=== PATIENT | male | born 1950 | race Caucasian/White ===

== ENCOUNTER → 2017-12-20 07:56 | Outpatient (CLI) | payer MEDICARE, OTHER, SELFPAY ==
[2017-12-20 09:32] LABS: Hemoglobin A1C% w Est Avg Glu 7.3 % (4.0-6.0)
== END ==
PROVIDERS: PCP Family Medicine; Visit Provider Family Medicine
DX: E11.9 Type 2 diabetes mellitus without complications (principal)
CPT/HCPCS: 36415; 83036

== ENCOUNTER 2018-01-26 11:35 | Emergency (ER) | payer MEDICARE, OTHER, SELFPAY ==
[2018-01-26] VITALS (7 sets, daily range): BP systolic 127–162; BP diastolic 55–82; PULSE 78–96; RESP 16–26; TEMP 36.4; O2SAT 92–100
--- NOTE | 2018-01-26 11:48 | ED_ITS ---
HPI - SOB/Dyspnea General Chief Complaint: Shortness of Breath/Dyspnea Stated Complaint: COPD,LEG SWELLING,SOB Time Seen by Provider: 01/26/18 11:43 Source: patient and family Mode of arrival: ambulatory Limitations: no limitations History of Present Illness Patient is a 67-year-old male with history of COPD on 3 L of home oxygen here for evaluation of both worsening of breathing and also bilateral lower extremity swelling. Patient states that within the past week he stopped a course of antibiotics that was prescribed by Infectious Disease. He does not know the name of this medication. He also states that approximately 3 days ago he stopped course of steroids that was prescribed to him by his primary care doctor for concerns of a ?allergic reaction ?those antibiotics. Patient states that this allergic reaction was the swelling in his lower extremities. Denies chest pain. Does state that his breathing has been worsening over the past several weeks. States that the swelling in his legs has been there for the past several days/week. Related Data Home Medications Medication Instructions Recorded Confirmed cholecalciferol (vitamin D3) 1,000 unit PO QDAY #0 02/07/17 01/26/18 [Vitamin D3] guaifenesin [Mucinex] 600 mg PO Q12H #0 02/07/17 01/26/18 multivitamin [Multiple Vitamins] 1 tab PO QDAY #0 02/07/17 01/26/18 albuterol sulfate [Proventil HFA] 2 puff INH Q4H #0 02/08/17 01/26/18 tiotropium bromide [Spiriva with 1 puff INH QDAY #0 08/03/17 01/26/18 HandiHaler] Spacer: Inhaler Spacer Device 1 ea INHALATION DIRECTED 01/26/18 01/26/18 albuterol sulfate 3 ml INHALATION TID 01/26/18 01/26/18 aspirin 81 mg PO DAILY 01/26/18 01/26/18 fluticasone-salmeterol [Advair 1 inh INHALATION Q12H 01/26/18 01/26/18 Diskus] furosemide 20 mg PO PRN PRN 01/26/18 01/26/18 ipratropium-albuterol 1 dose INHALATION PRN PRN 01/26/18 01/26/18 loratadine 10 mg PO DAILY 01/26/18 01/26/18 lorazepam 0 mg PO PRN PRN 01/26/18 01/26/18 prednisone 10 mg PO DAILY 01/26/18 01/26/18 Previous Rx's Medication Instructions Recorded atorvastatin [Lipitor] 20 mg PO HS #90 tab 09/15/17 tamsulosin 0.4 mg capsule 0.4 mg PO QDAY #90 cap 12/20/17 metformin ER 500 mg 1,000 mg PO BID #180 tab 12/22/17 tablet,extended release 24 hr furosemide [Lasix] 20 mg PO DAILY #10 tab 01/26/18 Allergies Allergy/AdvReac Type Severity Reaction Status Date / Time felodipine [FELODIPINE] Allergy Intermediate SWELLING Verified 01/26/18 12:01 Review of Systems Constitutional Denies fatigue, Denies fever(s), Denies lethargy and Denies malaise ENT Ears, Nose, Mouth, and Throat: Denies vertigo and Denies dizziness Cardiovascular Denies chest pain, Denies syncope, Denies palpitations and Reports dyspnea Respiratory Denies change in phlegm color, Denies chest congestion, Reports cough, Denies excessive phlegm production, Reports dyspnea and Reports wheezing Gastrointestinal Gastrointestinal: Denies diarrhea, Denies nausea and Denies vomiting Genitourinary Denies dysuria Musculoskeletal Denies myalgias and Denies arthralgias Comments: Bilateral lower extremity swelling Integumentary/Breasts Denies lesions and Denies rash Neurologic Denies confusion, Denies vertigo, Denies dizziness, Denies syncope and Denies focal weakness Psychiatric Denies confusion Endocrine Denies fatigue and Denies palpitations Hematologic/Lymphatic Denies easy bruising Allergic/Immunologic Reports wheezing [facility] Social History Smoking Status: Former smoker Exam Initial Vital Signs Initial Vital Signs: Vital Signs Temperature 97.5 F L 01/26/18 11:53 Pulse Rate 96 H 01/26/18 11:53 Respiratory Rate 26 H 01/26/18 11:53 Blood Pressure 162/82 H 01/26/18 11:53 Pulse Oximetry 92 01/26/18 11:53 Const General: cooperative, No acute distress and other (Chronically ill-appearing) Orientation: alert, awake and oriented x3 HENMT Head: normal to inspection and normocephalic Resp Other: Patient on 3 L of oxygen by nasal cannula. Decreased breath sounds bilaterally minimal wheezing heard. Cardio Rate: regular rate Pulses: radial pulses present GI Inspection: non-distended Palpation: soft, No firm and No tender Skin Lesions: no lesions Rashes: no rashes Neuro General: alert, awake and oriented x3 Cognition: normal cognition Speech: speech normal Extrem Other: Patient with 2+ pitting edema bilateral lower extremities right greater than left Course Orders Ordered: ED Orders 01/26/18 11:45 B Type Natriuretic Peptide Stat Complete Blood Count AUTO DIFF Stat Comprehensive Metabolic Panel Stat Lipase Stat Partial Thromboplastin Time Stat Prothrombin Time INR Stat Troponin I Stat 01/26/18 11:49 Arterial Blood Gas Stat 01/26/18 11:50 XR chest 1V Stat 01/26/18 12:14 Lactate (Lactic Acid) Stat Discontinued Medications Albuterol/Ipratropium (Duoneb) 3 ml INH NOW ONE Stop: 01/26/18 11:50 Last Admin: 01/26/18 12:02 Dose: 3 ml Albuterol/Ipratropium (Duoneb) 3 ml INH NOW ONE Stop: 01/26/18 11:51 Last Admin: 01/26/18 12:03 Dose: 3 ml Albuterol/Ipratropium (Duoneb) 3 ml INH NOW ONE Stop: 01/26/18 11:52 Last Admin: 01/26/18 12:03 Dose: 3 ml Vital Signs - 8 hr 01/26/18 11:53 01/26/18 12:00 01/26/18 12:13 Temperature 97.5 F L Pulse Rate 96 H 84 87 Respiratory Rate 26 H 22 22 Blood Pressure 162/82 H Blood Pressure [Left Arm] Pulse Oximetry 92 100 100 01/26/18 12:30 01/26/18 12:58 01/26/18 13:02 Temperature Pulse Rate 81 80 78 Respiratory Rate 18 20 Blood Pressure Blood Pressure [Left Arm] 127/64 H 127/64 H 133/55 H Pulse Oximetry 100 97 100 01/26/18 13:18 Temperature Pulse Rate 78 Respiratory Rate 16 Blood Pressure 133/55 H Blood Pressure [Left Arm] Pulse Oximetry 100 MDM - SOB/Dyspnea Lab Data Attestation: I reviewed the patient's lab results. Result diagrams: 01/26/18 11:45 01/26/18 11:45 Lab Results 06/22/18 06/22/18 06/22/18 Range/Units 11:45 11:45 11:45 WBC 8.9 (4.5-11.0) X10^3/uL RBC 4.26 L (4.5-5.9) X10^6/uL Hgb 13.2 L (13.5-17.5) g/dL Hct 39.4 L (41-53) % MCV 92.5 (80-100) fL MCH 30.9 (26-34) PG MCHC 33.4 (30-36) % RDW 13.2 (11.6-14.8) % Plt Count 252 (150-400) X10^3/uL Neut % (Auto) 83.2 H (50-75) % Lymph % (Auto) 8.5 L (25-40) % Howell % (Auto) 6.1 (3-14) % Eos % (Auto) 1.6 L (2-4) % Baso % (Auto) 0.6 (0-2) % Neut # (Auto) 7400 H (4029-3615) /uL PT 10.7 (10.1-12.7) SECONDS INR 1.0 (0.9-1.3) APTT 36 (26.4-36.2) SECONDS Sodium 144 (137-145) mmol/L Potassium 4.1 (3.4-5.1) mmol/L Chloride 99 (98-107) mmol/L Carbon Dioxide 36 H (22-32) mmol/L BUN 14 (9-20) mg/dL Creatinine 0.50 L (0.66-1.25) mg/dL Estimated GFR > 60.0 (>60) mL/min BUN/Creatinine Ratio 28.0 H (6-22) Glucose 170 H (80-110) mg/dL Lactate (0.7-2.1) mmol/L Calcium 9.8 (8.4-10.2) mg/dL Total Bilirubin 0.3 (0.2-1.3) mg/dL AST 15 L (17-59) IU/L ALT 28 (21-72) IU/L Alkaline Phosphatase 90 (38-126) U/L Troponin I < 0.012 (0.01-0.034) ng/mL B-Natriuretic Peptide 55.6 (<100) Total Protein 7.1 (6.3-8.2) g/dL Albumin 4.0 (3.5-5.0) g/dL Globulin 3.1 (1.7-4.1) g/dL Albumin/Globulin Ratio 1.3 (1.0-2.8) Lipase 12 L (23-300) U/L 01/26/ Range/Units 12:14 WBC (4.5-11.0) X10^3/uL RBC (4.5-5.9) X10^6/uL Hgb (13.5-17.5) g/dL Hct (41-53) % MCV (80-100) fL MCH (26-34) PG MCHC (30-36) % RDW (11.6-14.8) % Plt Count (150-400) X10^3/uL Neut % (Auto) (50-75) % Lymph % (Auto) (25-40) % Howell % (Auto) (3-14) % Eos % (Auto) (2-4) % Baso % (Auto) (0-2) % Neut # (Auto) (7575-1557) /uL PT (10.1-12.7) SECONDS INR (0.9-1.3) APTT (26.4-36.2) SECONDS Sodium (137-145) mmol/L Potassium (3.4-5.1) mmol/L Chloride (98-107) mmol/L Carbon Dioxide (22-32) mmol/L BUN (9-20) mg/dL Creatinine (0.66-1.25) mg/dL Estimated GFR (>60) mL/min BUN/Creatinine Ratio (6-22) Glucose (80-110) mg/dL Lactate 2.0 (0.7-2.1) mmol/L Calcium (8.4-10.2) mg/dL Total Bilirubin (0.2-1.3) mg/dL AST (17-59) IU/L ALT (21-72) IU/L Alkaline Phosphatase (38-126) U/L Troponin I (0.01-0.034) ng/mL B-Natriuretic Peptide (<100) Total Protein (6.3-8.2) g/dL Albumin (3.5-5.0) g/dL Globulin (1.7-4.1) g/dL Albumin/Globulin Ratio (1.0-2.8) Lipase (23-300) U/L Imaging Data Chest x-ray: Radiologist's impression: PROCEDURE: XR CHEST 1V INDICATIONS: COPD TECHNIQUE: One view of the chest was acquired. COMPARISON: [facility], CHEST 2 VIEW, 11/12/2017, 13:20. FINDINGS: Surgical changes and devices: None. Lungs and pleura: No pleural effusions or pneumothorax. Lung is hyperexpanded suggesting COPD. Left apical pleural thickening and upper lobe scarring with hilar retraction unchanged. Mild scarring in the right upper lobe as well. No focal infiltrates. Mediastinum: Mediastinal contours appear normal. Heart size is normal. Aortic calcifications. Bones and chest wall: No suspicious bony lesions. Overlying soft tissues appear unremarkable. IMPRESSION: 1. Chronic obstructive pulmonary disease. Bilateral upper lobe scarring left greater than right. No acute cardiopulmonary abnormality. Dictated by: Ceasar Gonzales M.D. on 01/26/2018 at 12:09 ECG Data Attestation: I personally reviewed and interpreted this ECG as follows: Prior ECG tracings: not available for review Interpretation: Sinus rhythm Ventricular rate 88 Normal axis Normal intervals Normal QTC No ST T wave changes MDM Narrative Medical decision making narrative: Patient received 3 DuoNeb here in the emergency department in afterwards stated that he was head baseline and his respiratory status. He does not have any fevers or change in sputum production. Will hold on any steroids or antibiotics. He does have bilateral lower extremity swelling with a right greater than left. No signs of cellulitis. He has been on Lasix in the past but he states this was approximately 6 years ago. No indication for antibiotics secondary to the swelling. We did discuss this with the patient and the . Patient was back to baseline respiratory rios. Will give a prescription for Lasix for the next several days. He was given return precautions. He was instructed to contact his primary doctor for a follow-up. Both he and his expressed understanding and agreement with plan Discharge Plan Departure Patient Disposition: Home, Self-Care Clinical Impression: COPD (chronic obstructive pulmonary disease), Dependent edema Discharge Date/Time: 01/26/18 13:23 Interventions: ED Discharge Assessment Last Done: 01/26/18 13:18 Instructions: Edema (Alternative Therapy), DI for Dependent Edema Activity Restrictions/Additional Instructions: Recommend that you continue all of your medications as directed. Take the Lasix like we discussed. Call your primary doctor for a follow-up. Return to the emergency department for any new or worsening symptoms Prescriptions: New furosemide [Lasix] 20 mg tablet 20 mg PO DAILY Qty: 10 RF: 0 No Action guaifenesin [Mucinex] 600 MG tablet extended release 12hr 600 mg PO Q12H Qty: 0 RF: 0 multivitamin [Multiple Vitamins] 1 EACH tablet 1 tab PO QDAY Qty: 0 RF: 0 cholecalciferol (vitamin D3) [Vitamin D3] 1,000 UNIT tablet 1,000 unit PO QDAY Qty: 0 RF: 0 albuterol sulfate [Proventil HFA] 90 MCG/PUFF HFA aerosol inhaler 2 puff INH Q4H Qty: 0 RF: 0 tiotropium bromide [Spiriva with HandiHaler] 18 MCG capsule, w/inhalation device 1 puff INH QDAY Qty: 0 RF: 0 atorvastatin [Lipitor] 20 MG tablet 20 mg PO HS Qty: 90 RF: 1 tamsulosin [Flomax] 0.4 mg capsule,extended release 24hr 0.4 mg PO QDAY Qty: 90 RF: 0 metformin [Glucophage XR] 500 mg tablet extended release 24 hr 1,000 mg PO BID Qty: 180 RF: 3 Spacer: Inhaler Spacer Device 1 ea Inhalation DIRECTED RF: 0 fluticasone-salmeterol [Advair Diskus] 250-50 mcg/dose Blister With Device 1 inh INHALATION Q12H RF: 0 prednisone 10 mg Tablet 10 mg PO DAILY RF: 0 ipratropium-albuterol 0.5 mg-3 mg(2.5 mg base)/3 mL Solution For Nebulization 1 dose Inhalation PRN PRN (Reason: Shortness Of Breath) RF: 0 albuterol sulfate 2.5 mg /3 mL (0.083 %) Solution For Nebulization 3 ml Inhalation TID RF: 0 aspirin 81 mg Tablet,Delayed Release (Dr/Ec) 81 mg PO DAILY RF: 0 furosemide 20 mg Tablet 20 mg PO PRN PRN (Reason: Edema) RF: 0 loratadine 10 mg Tablet 10 mg PO DAILY RF: 0 lorazepam 0.5 MG tablet PO PRN PRN (Reason: Anxiety) RF: 0
[2018-01-26 11:59] LABS: Add Manual Diff / Slide Review NO; Basophils Percent Auto 0.6 % (0-2); Eosinophils Percent Auto 1.6 % (2-4); Hematocrit 39.4 % (41-53); Hemoglobin 13.2 g/dL (13.5-17.5); Lymphocytes Percent Auto 8.5 % (25-40); Mean Corpuscular HGB Conc 33.4 % (30-36); Mean Corpuscular Hemoglobin 30.9 PG (26-34); Mean Corpuscular Volume 92.5 fL (80-100); Monocytes Percent Auto 6.1 % (3-14); Neutrophils Absolute Auto 7400 /uL (3000-5900); Neutrophils Percent Auto 83.2 % (50-75); Platelet Count 252 X10^3/uL (150-400); Red Blood Cell Count 4.26 X10^6/uL (4.5-5.9); Red Cell Distribution Width 13.2 % (11.6-14.8); White Blood Cell Count 8.9 X10^3/uL (4.5-11.0)
[2018-01-26] MEDS: ALBUTEROL/IPRATROPIUM 3 ML AMPUL INH ×3 (12:02→12:03)
[2018-01-26 12:10] LABS: Alanine Aminotransferase 28 IU/L (21-72); Albumin Globulin Ratio 1.3 (1.0-2.8); Alkaline Phosphatase 90 U/L (38-126); Aspartate Aminotransferase 15 IU/L (17-59); Bilirubin Total 0.3 mg/dL (0.2-1.3); Blood Urea Nitrogen 14 mg/dL (9-20); Calcium 9.8 mg/dL (8.4-10.2); Carbon Dioxide 36 mmol/L (22-32); Chloride 99 mmol/L (98-107); Estimated Glomerular Filt Rate > 60.0 mL/min (>60); Globulin 3.1 g/dL (1.7-4.1); Glucose 170 mg/dL (80-110); HEMOLYSIS < 15 (0-50); Lipase 12 U/L (23-300); Potassium 4.1 mmol/L (3.4-5.1); Sodium 144 mmol/L (137-145); Total Protein 7.1 g/dL (6.3-8.2)
--- NOTE | 2018-01-26 12:14 | PC.NURSE ---
on continuous nebulizer
[2018-01-26 12:18] LABS: PTT Partial Thromboplastin Tim 36 SECONDS (26.4-36.2); Prothrombin Time 10.7 SECONDS (10.1-12.7)
[2018-01-26 12:22] LABS: Troponin I < 0.012 ng/mL (0.01-0.034)
[2018-01-26 12:37] LABS: B Type Natriuretic Peptide 55.6 (<100)
== END 2018-01-26 13:23 | disposition home or self-care (01) ==
PROVIDERS: Emergency Provider Emergency Medicine; Family Provider Family Medicine; PCP Family Medicine
DX: J44.9 Chronic obstructive pulmonary disease, unspecified (principal); R60.9 Edema, unspecified
CPT/HCPCS: 36415; 36591; 71045; 80053; 83605; 83690; 83880; 84484; 85025; 85610; 85730; 93005; 93010; 94640; 99283; 99285

== ENCOUNTER → 2018-02-16 12:03 | Outpatient (CLI) | payer MEDICARE, OTHER, SELFPAY ==
--- NOTE | 2018-02-16 | DI.ECHO.S_ITS ---
[facility]+ [facility] +---------+ : : [address] [place] : : : : [id number] : : : : Phone: [phone] Echocardiogram Report + + :Name: AZAR ROSEN Study Date: 02/16/2018 Height: 67 in : :[facility] Weight: 160 lb : : Gender: Male BSA: 1.8 m2 : :: 1950 Age: 67 yrs BP: 138/62 mmHg: :Reason For Study: Dyspnea : :Ordering Physician: Beryl : :Parimi Performed By: Allie Feliz : :Referring: Indio Pineda : + + Interpretation Summary The left ventricle is normal in size. There is normal left ventricular wall thickness. The ejection fraction is estimated to be 55-60%. Diastolic function could not be accurately assessed due to unobtainable data. The right ventricle grossly appears normal in size with probable normal systolic function. Pulmonary artery pressures cannot be estimated because of the lack of a measurable TR jet velocity. The IVC is of normal diameter and collapses greater than 50% with a sniff. This suggests a low right atrial pressure of 3 mm Hg. Both atria are normal in size. There is no significant valvular heart disease. No other echocardiographic abnormalities seen. Overall exam quality is moderately poor however no clear etiology identified for the patient's symptoms of dyspnea. As no evidence to suggest pulmonary hypertension and the central venous pressure is convincingly normal. Procedure: A two-dimensional transthoracic echocardiogram with color flow and Doppler was performed. The study quality was technically adequate. Most of the acoustic windows were suboptimal, but the best imaging was obtained from the subcostal window. A contrast injection of Definity was performed to improve assessment of LV function. A total of 1.5 cc of contrast was given. The patient was in normal sinus rhythm during the exam. Left Ventricle: The left ventricle is normal in size. There is normal left ventricular wall thickness. The ejection fraction is estimated to be 55-60%. There are no focal wall motion abnormalities. Diastolic function could not be accurately assessed due to unobtainable data. Right Ventricle: The right ventricle grossly appears normal in size with probable normal systolic function. Atria: The left atrial size is normal. Both atria are normal in size. Right atrial size is normal. The interatrial septum is intact with no evidence for an atrial septal defect. Mitral Valve: The mitral valve is grossly normal. There is no mitral regurgitation noted. Aortic Valve: The aortic valve opens well. No aortic regurgitation is present. Tricuspid Valve: The tricuspid valve is normal in structure and function. No tricuspid regurgitation. Pulmonary artery pressures cannot be estimated because of the lack of a measurable TR jet velocity. Pulmonic Valve: The pulmonic valve is not well seen, but is grossly normal. There is no pulmonic valvular regurgitation. Great Vessels: The aortic root is normal size. The ascending aorta could not be visualized. The IVC is of normal diameter and collapses greater than 50% with a sniff. This suggests a low right atrial pressure of 3 mm Hg. Pericardium/ Pleura There is no pericardial effusion. There is no pleural effusion. MMode/2D Measurements & Calculations LVIDd: 5.2 cm Ao root diam: 3.7 cm LVIDs: 3.7 cm Aortic Jxn: 2.4 cm FS: 27.6 % EPSS: 0.90 cm IVSd: 0.81 cm LVPWd: 0.82 cm LV morillo. diameter/BSA (cm/m^2): 2.8 LV sys. diameter/BSA (cm/m^2): 2.0 LA dimension: 2.7 cm RA long axis: 3.9 cm LA A2 area: 13.5 cm2 RA area: 10.4 cm2 LA A4 area: 7.9 cm2 RA vol: 23.2 ml LA length (vol): 3.3 cm RA : 12.6 ml/m2 LA vol: 27.4 ml IVC diam: 1.2 cm LA vol index: 14.9 ml/m2 RVDd major: 5.2 cm RVD1 (basal): 3.3 cm RVD2 (mid): 2.5 cm Doppler Measurements & Calculations Ao V2 max: 100.4 cm/sec MV E max maximilian: 50.5 cm/sec Ao V2 mean: 68.6 cm/sec MV A max maximilian: 79.6 cm/sec Ao max P.0 mmHg MV E/A: 0.63 Ao mean P.1 mmHg Med Peak E' Maximilian: 5.5 cm/sec Ao V2 VTI: 20.2 cm E/E' med: 9.2 Lat Peak E' Maximilian: 6.2 cm/sec E/E' lat: 8.1 E/e' average: 8.7 MV dec time: 0.32 sec MV P1/2t: 94.3 msec PA V2 max: 67.4 cm/sec MV P1/2t max maximilian: 50.2 cm/sec PA V2 mean: 46.5 cm/sec MVA(P1/2t): 2.3 cm2 PA mean P.0 mmHg PA Accel Time: 0.16 sec Reading Physician:04:58 PM
== END ==
PROVIDERS: Family Provider Internal Medicine Infectious Disease; PCP Family Medicine; Visit Provider Internal Medicine Critical Care Medicine
DX: R06.09 Other forms of dyspnea (principal)
CPT/HCPCS: 93306; Q9957

== ENCOUNTER → 2018-03-06 10:15 | Outpatient (CLI) | payer MEDICARE, OTHER, SELFPAY | PROVIDERS: Family Provider Internal Medicine Infectious Disease; PCP Family Medicine; Visit Provider Internal Medicine Critical Care Medicine | DX: J47.9 Bronchiectasis, uncomplicated (principal) | CPT/HCPCS: 87070; 87077; 87116; 87186; 87205 ==

== ENCOUNTER → 2018-03-12 11:37 | Outpatient (CLI) | payer MEDICARE, OTHER, SELFPAY | PROVIDERS: Family Provider Internal Medicine Infectious Disease; PCP Family Medicine; Visit Provider Internal Medicine Infectious Disease | DX: A31.0 Pulmonary mycobacterial infection (principal) | CPT/HCPCS: 87070; 87077; 87107; 87205 ==

== ENCOUNTER 2018-05-01 20:41 | Inpatient (IN) | payer MEDICARE, OTHER, SELFPAY ==
[2018-05-01] VITALS (12 sets, daily range): BP systolic 117–188; BP diastolic 60–168; PULSE 106–137; RESP 10–38; TEMP 32–38.1; O2SAT 94–99; BMI 25.0; BMI 25.2
--- NOTE | 2018-05-01 | DI.CT.S_ITS ---
PROCEDURE: CT ANGIO CHEST PE PROTOCOL INDICATIONS: difficulty breathing TECHNIQUE: After the administration of intravenous contrast, 2 mm thick sections acquired from the pulmonary apices to the posterior costophrenic angles. 3-dimensional maximum intensity projection (MIP) coronal and sagittal reformats were then acquired through the thorax. For radiation dose reduction, the following was used: automated exposure control, adjustment of mA and/or kV according to patient size. COMPARISON: None. FINDINGS: Image quality: Excellent. Pulmonary arteries: Pulmonary arteries are normal in size, and demonstrate no intraluminal filling defects to suggest central pulmonary embolism. Lungs and pleura: Moderate to severe emphysematous changes are noted throughout bilateral lung denney with reticular nodular appearance along the periphery of the lateral lung denney. Sample nodules measure 1 cm in lateral aspect of left lower lobe series 5 image 47, 7 mm in lateral aspect of left lung base series 5 image 51, and 6 mm in size a more inferior aspect of left lung base series 5 image 54. Extensive left upper lobe scarring with central cavity and 1.3 cm soft tissue density is noted. There is no pleural effusion or pneumothorax. Small infiltrate/atelectasis scattered in posterolateral periphery of right lung base is seen. Central and peripheral airways are patent. Mediastinum: Heart size is, no significant pericardial effusion. No mediastinal or hilar adenopathy. Thoracic aorta is normal in caliber and enhancement. Esophagus is normal in caliber, with a small hiatal hernia. Bones and chest wall: No suspicious bony lesions. Ribs and thoracic spine appear intact throughout. Thyroid gland is within normal limits. No axillary or supraclavicular adenopathy. Abdomen: Visualized upper abdominal solid organs appear normal in the early arterial phase of enhancement. Moderate-sized ventral hernia is seen, partially imaged on this study and contains fat and bowel loop. Bilateral renal cysts are seen. No gross hydronephrosis. Atherosclerotic calcifications involving origin of superior mesenteric artery is noted, suggestive of some degree of stenosis at the origin. IMPRESSION: 1. No evidence of pulmonary embolism. No thoracic aortic aneurysm or gross dissection. 2. Severe emphysema. Scattered right basilar infiltrate/atelectasis. 3. Innumerable small nodules scattered in periphery of bilateral lung denney particularly in left lower lobe. This could represent granulomatous disease, metastatic lung nodules cannot be excluded. Scarring at left lung apex with cavitation and center area of soft tissue density. This could represent infectious process with a fungus ball. Malignant process cannot be excluded. Clinical correlation and followup is recommended. 4. Moderate-sized ventral hernia containing bowel loop, partially imaged on this study. No discrepancies. Dictated by: Wally Rajput M.D. on 05/02/2018 at 9:04 Approved by: Wally Rajput M.D. on 05/02/2018 at 10:13
--- NOTE | 2018-05-01 20:41 | DI.RAD.S_ITS ---
PROCEDURE: XR CHEST 1V INDICATIONS: Shortness of breath TECHNIQUE: One view of the chest was acquired. COMPARISON: [facility], CR, XR CHEST 1V, 01/26/2018, 11:55. FINDINGS: Surgical changes and devices: None. Lungs and pleura: No pleural effusions or pneumothorax. Scarring noted in the upper lobes of the lungs bilaterally left greater than right stable compared to prior exam. Lungs are hyperinflated suggesting COPD. Mediastinum: Mediastinal contours appear normal. Heart size is normal. Bones and chest wall: No suspicious bony lesions. Overlying soft tissues appear unremarkable. IMPRESSION: No acute cardiopulmonary disease process. Dictated by: Lisa Hendricks MD, PhD on 05/01/2018 at 21:16 Approved by: Lisa Hendricks MD, PhD on 05/01/2018 at 21:16
[2018-05-01] MEDS: CEFTRIAXONE 1 GM/50 ML FROZ.PIGGY IV (20:46)
[2018-05-01] MEDS: methylPREDNISolone 125 MG/2 ML VIAL IV (20:46)
[2018-05-01] MEDS: KETOROLAC 60 MG/2 ML VIAL 15 MG IV (20:49)
[2018-05-01] MEDS: ALBUTEROL/IPRATROPIUM 3 ML AMPUL INH (20:50)
--- NOTE | 2018-05-01 20:50 | ED.SOB ---
HPI - SOB/Dyspnea General Chief Complaint: Shortness of Breath/Dyspnea Stated Complaint: Difficulty Breathing Time Seen by Provider: 05/01/18 20:41 Source: patient, family and EMS Mode of arrival: EMS Limitations: no limitations History of Present Illness 67-year-old male with extensive cardiac and pulmonary history on 3 L home oxygen presents with rapidly worsening symptoms over the past 3 hr. He has had low-grade fever and chills but denies any change in his cough. He denies any dizziness, weakness or lightheadedness. He is in significant respiratory distress in EMS has been unsuccessful in improving symptoms with bronchodilators. He denies any recent hospitalizations. He denies nausea, vomiting or diarrhea. MD Complaint: shortness of breath Onset (ago): hour(s) Severity: severe Consistency/Duration: progressively worsening Relieving factors: nothing Exacerbating factors: exertion Known history of: COPD Associated symptoms: fever and cough Treatment prior to arrival: oxygen and bronchodilator Related Data Home oxygen amount: 3 liters Home Medications Medication Instructions Recorded Confirmed cholecalciferol (vitamin D3) 1,000 unit PO QDAY #0 02/07/17 05/01/18 [Vitamin D3] guaifenesin [Mucinex] 600 mg PO Q12H #0 02/07/17 05/01/18 multivitamin [Multiple Vitamins] 1 tab PO QDAY #0 02/07/17 05/01/18 albuterol sulfate [Proventil HFA] 2 puff INH Q4H #0 02/08/17 05/01/18 tiotropium bromide [Spiriva with 1 puff INH QDAY #0 08/03/17 05/01/18 HandiHaler] Spacer: Inhaler Spacer Device 1 ea INHALATION DIRECTED 01/26/18 05/01/18 albuterol sulfate 3 ml INHALATION TID 01/26/18 05/01/18 aspirin 81 mg PO DAILY 01/26/18 05/01/18 fluticasone-salmeterol [Advair 1 inh INHALATION Q12H 01/26/18 05/01/18 Diskus] ipratropium-albuterol 1 dose INHALATION PRN PRN 01/26/18 05/01/18 loratadine 10 mg PO DAILY 01/26/18 05/01/18 tobramycin with nebulizer 300 mg INHALATION DAILY 05/01/18 05/01/18 Previous Rx's Medication Instructions Recorded atorvastatin [Lipitor] 20 mg PO HS #90 tab 09/15/17 metformin ER 500 mg 1,000 mg PO BID #180 tab 12/22/17 tablet,extended release 24 hr furosemide 40 mg tablet 40 mg PO DAILY #30 tab 02/08/18 tamsulosin 0.4 mg capsule 0.4 mg PO QDAY #90 cap 03/22/18 lorazepam 0.5 mg tablet 0.5 mg PO BID PRN #60 tab 04/06/18 Allergies Allergy/AdvReac Type Severity Reaction Status Date / Time felodipine [FELODIPINE] Allergy Intermediate SWELLING Verified 04/20/18 10:07 Review of Systems Review of Systems All systems reviewed & are unremarkable except as noted in HPI and below Constitutional Reports chills, Reports fever(s), Denies lethargy and Reports weakness Eyes Denies change in vision, Denies eye discharge, Denies irritation and Denies loss of vision ENT Ears, Nose, Mouth, and Throat: Denies change in voice, Denies neck pain and Denies sore throat Cardiovascular Denies chest pain, Denies irregular heart rhythm, Denies lightheadedness, Denies palpitations, Reports dyspnea, Reports dyspnea on exertion and Denies orthopnea Respiratory Reports cough, Reports dyspnea, Reports dyspnea on exertion and Denies wheezing Gastrointestinal Gastrointestinal: Denies abdominal pain, Denies change in bowel habits, Denies diarrhea, Denies nausea and Denies vomiting Genitourinary Denies hematuria, Denies flank pain, Denies urinary incontinence and Denies urinary urgency Musculoskeletal Denies neck pain Integumentary/Breasts Denies pruritus, Denies erythema, Denies rash and Denies wounds Neurologic Denies confusion, Denies loss of vision and Reports weakness Psychiatric Denies anxiety, Denies confusion, Denies depression, Denies homicidal ideation and Denies suicidal ideation Endocrine Denies palpitations Hematologic/Lymphatic Denies easy bruising Allergic/Immunologic Denies wheezing [facility] Medical History Anxiety (Chronic Unknown) Peripheral vascular disease (Chronic Unknown) Hx of small bowel obstruction (Resolved 03/2015) Hyperlipemia (Chronic Unknown) Chronic respiratory failure with hypoxia (Chronic Unknown) Nontuberculous mycobacterial infection (Chronic 2014) Coronary artery disease (Chronic Unknown) History of colon cancer (Resolved ~2010) BPH (benign prostatic hyperplasia) (Chronic Unknown) COPD (chronic obstructive pulmonary disease) (Chronic) Dyspnea (Chronic) COPD (chronic obstructive pulmonary disease) (Chronic Unknown) Diabetes (Chronic Unknown) COPD (chronic obstructive pulmonary disease) (Inactive) Dependent edema (Inactive) Surgical History H/O cardiac catheterization (Resolved 2010) S/P small bowel resection (Resolved 03/2015) Hx of hernia repair (Resolved 2008) S/P colon resection (Resolved 2010) Hx of cataract surgery (Resolved 2014) Family History Mother Cancer Social History household members: spouse Smoking Status: Former smoker Exam Narrative Exam Narrative: 67-year-old severely ill patient and tremendous respiratory distress including use of accessory muscles, tripodding, pursed lip breathing Initial Vital Signs Initial Vital Signs: Vital Signs Temperature 100.6 F H 05/01/18 20:41 Pulse Rate 137 H 05/01/18 20:41 Respiratory Rate 38 H 05/01/18 20:41 Blood Pressure 188/168 H 05/01/18 20:41 Pulse Oximetry 98 05/01/18 20:41 Const General: cooperative, well developed and acute distress Nutritional Appearance: well nourished Orientation: alert, awake, oriented x3 and not confused [facility] Head: normocephalic and atraumatic Ears: external ears normal and TM's normal bilaterally Nose: external nose normal and No nasal discharge Face and sinus: sinuses nontender, face symmetric, no sinus tenderness and No dry mucous membranes Mouth: oral mucosae normal and moist mucous membranes Teeth and gingiva: dentition normal Throat: tonsils normal and uvula midline Eyes General: appearance normal, both eyes and all related structures Eyelids: eyelids normal Conjunctivae: conjunctivae normal Sclera: sclerae normal Pupils: PERRL EOM: EOM intact bilaterally Chest Chest: normal inspection of the chest Resp Effort & Inspection: cough, respiratory distress, retractions, tachypneic, uses accessory muscles and prolonged expiratory phase Auscultation: diminished lung sounds, no rales, no rhonchi and no wheezes Cardio Rate: tachycardic Rhythm: regular rhythm Heart Sounds: no click, no gallops, no murmurs and no rubs Pulses: normal peripheral pulses GI Inspection: non-distended Palpation: soft, no hepatosplenomegaly, No guarding, No pulsatile mass and No tender Auscultation: normal bowel sounds Back/Spine/Pelvis Back: No CVA tenderness Cervical Spine: cervical ROM normal and No pain with cervical ROM Thoracic/Lumbar Spine: thoracic and lumbar spine normal to inspection Skin General: no rashes or lesions noted, No jaundice and No petechiae Neuro General: alert, oriented x3, gait normal and no focal motor deficits Speech: speech normal Extrem General: full ROM, no clubbing, cyanosis or edema, no pedal edema and no calf tenderness Course Course Narrative: Patient had 2nd IV placed with orders for antibiotics, Solu-Medrol and fluids nearly immediately upon arrival. BiPAP was waiting with intubation supplies at the bedside. The patient was slow to improve on noninvasive pressure ventilation but after about 10 min showed tremendous improvement in work of breathing and vital signs. Though BiPAP would not of an my 1st choice of and straightforward COPD case the presence of rapid change in clinical picture along with fever suggested some utility Decision to Admit Date: 05/01/18 Decision to Admit time: 21:31 Orders Ordered: ED Orders 05/03/18 00:21 Sputum Culture Routine 05/03/18 05:00 Basic Metabolic Panel Routine Complete Blood Count AUTO DIFF Routine Acetaminophen (Tylenol) 650 mg PO Q6HR PRN PRN Reason: As Needed for Fever/Mild Pain Albuterol (Ventolin) 2.5 mg INH [id number] PRN PRN Reason: Shortness Of Breath Albuterol/Ipratropium (Duoneb) 3 ml INH [id number] [facility] Last Admin: 05/02/18 23:06 Dose: 3 ml Admin: 05/02/18 19:49 Dose: 3 ml Admin: 05/02/18 14:54 Dose: 3 ml Aspirin (Aspirin Ec) 81 mg PO DAILY [facility] Last Admin: 05/02/18 08:53 Dose: 81 mg Atorvastatin Calcium (Lipitor) 20 mg PO BEDTIME [facility] Last Admin: 05/02/18 21:16 Dose: 20 mg Bisacodyl (Dulcolax) 10 mg [place] DAILY PRN PRN Reason: Constipation Calcium Carbonate (Tums) 500 mg PO TID PRN PRN Reason: Dyspepsia Last Admin: 05/02/18 23:06 Dose: 500 mg Dextrose (D50w) 25 gm IV PRN PRN; Protocol PRN Reason: Hypoglycemia Docusate Sodium (Colace) 100 mg PO BID [facility] Last Admin: 05/02/18 21:16 Dose: 100 mg Admin: 05/02/18 08:59 Dose: 100 mg Enoxaparin Sodium (Lovenox) 40 mg SUBCUT DAILY [facility] Last Admin: 05/02/18 08:54 Dose: 40 mg Lactated Ringer's (Lactated Ringers) 1,000 mls @ 100 mls/hr IV CONT DIAZ Last Admin: 05/02/18 21:21 Dose: 100 mls/hr Infusion: 05/02/18 21:18 Dose: 100 mls/hr Admin: 05/02/18 11:18 Dose: 100 mls/hr Infusion: 05/02/18 10:09 Dose: 100 mls/hr Admin: 05/02/18 00:09 Dose: 100 mls/hr Piperacillin/Tazobactam/Dextrose (Zosyn) 3.375 gm in 50 mls @ 100 mls/hr IV Q8H [facility] Last Admin: 05/03/18 00:31 Dose: 100 mls/hr Infusion: 05/02/18 21:18 Dose: 0 mls/hr Admin: 05/02/18 17:25 Dose: 100 mls/hr Infusion: 05/02/18 10:21 Dose: 0 mls/hr Admin: 05/02/18 08:53 Dose: 100 mls/hr Infusion: 05/02/18 03:01 Dose: 0 mls/hr Admin: 05/02/18 00:59 Dose: 100 mls/hr Tigecycline 50 mg/ Sodium (Chloride) 100 mls @ 200 mls/hr IV Q12H [facility] Insulin Aspart (Novolog Flexpen) 0 unit SUBCUT ACHS [facility]; Protocol Last Admin: 05/02/18 21:18 Dose: 1 unit Admin: 05/02/18 17:26 Dose: Not Given Admin: 05/02/18 12:20 Dose: 1 unit Admin: 05/02/18 09:06 Dose: 1 unit Insulin Glargine (Lantus Solostar (Pen)) 20 unit SUBCUT BEDTIME [facility] Last Admin: 05/02/18 21:19 Dose: 20 unit Admin: 05/02/18 00:24 Dose: 20 unit Lorazepam (Ativan) 0.5 mg IV Q4HR PRN PRN Reason: Anxiety Methylprednisolone (Solu-Medrol 125 Mg Vial) 60 mg IV Q6H [facility] Last Admin: 05/03/18 00:31 Dose: 60 mg Admin: 05/02/18 17:26 Dose: 60 mg Admin: 05/02/18 12:19 Dose: 60 mg Admin: 05/02/18 06:24 Dose: 60 mg Admin: 05/02/18 00:28 Dose: 60 mg Metoclopramide HCl (Reglan) 10 mg IV Q6HR PRN PRN Reason: Nausea And Vomiting Morphine Sulfate (Morphine) 2 mg IV Q4HR PRN PRN Reason: Pain, Moderate (4-6) Ranitidine HCl (Zantac) 150 mg PO BID [facility] Sodium Chloride (Normal Saline 0.9% Flush) 10 ml IV BID [facility] Tamsulosin HCl (Flomax) 0.4 mg PO DAILY [facility] Last Admin: 05/02/18 08:54 Dose: 0.4 mg Discontinued Medications Albuterol/Ipratropium (Duoneb) 3 ml INH NOW ONE Stop: 05/01/18 21:04 Last Admin: 05/01/18 20:50 Dose: 3 ml Albuterol/Ipratropium (Duoneb) 3 ml INH RTQ4HR PRN PRN Reason: Shortness Of Breath Albuterol/Ipratropium (Duoneb) 3 ml INH [id number] PRN PRN Reason: Shortness Of Breath Dextrose (D50w) 25 gm IV PRN PRN PRN Reason: Hypoglycemia Ceftriaxone Sodium/Dextrose (Rocephin) 1 gm in 50 mls @ 100 mls/hr IV NOW ONE Stop: 05/01/18 21:10 Last Infusion: 05/01/18 21:49 Dose: 0 mls/hr Admin: 05/01/18 20:46 Dose: 100 mls/hr Sodium Chloride (Normal Saline 0.9%) 1,000 mls @ 1,000 mls/hr IV BOLUS ONE Stop: 05/01/18 21:40 Last Infusion: 05/01/18 22:26 Dose: 0 mls/hr Admin: 05/01/18 20:57 Dose: 1,000 mls/hr Piperacillin/Tazobactam/Dextrose (Zosyn) 3.375 gm in 50 mls @ 100 mls/hr IV Q8H [facility] Last Admin: 05/02/18 00:35 Dose: Famotidine (Pepcid) 20 mg in 50 mls @ 200 mls/hr IV Q12HR [facility] Last Infusion: 05/02/18 13:26 Dose: 0 mls/hr Admin: 05/02/18 12:17 Dose: 200 mls/hr Infusion: 05/02/18 01:00 Dose: 0 mls/hr Admin: 05/02/18 00:25 Dose: 200 mls/hr Levofloxacin (Levaquin) 750 mg in 150 mls @ 100 mls/hr IV Q24H [facility] Last Admin: 05/02/18 00:38 Dose: Tigecycline 100 mg/ Sodium (Chloride) 100 mls @ 100 mls/hr IV NOW ONE Stop: 05/02/18 20:29 Last Infusion: 05/02/18 21:31 Dose: 0 mls/hr Admin: 05/02/18 19:39 Dose: 100 mls/hr Influenza Virus Vaccine (Flu Vaccine) 0.5 ml IM .ONCE ONE Stop: 05/02/18 09:01 Last Admin: 05/02/18 12:16 Dose: 0.5 ml Insulin Aspart (Novolog Flexpen) 4 unit SUBCUT AC [facility] Ipratropium [place] (Atrovent Neb) 0.5 mg INH RTQ4HR [facility] Last Admin: 05/02/18 11:21 Dose: 0.5 mg Admin: 05/02/18 07:48 Dose: 0.5 mg Admin: 05/02/18 03:31 Dose: 0.5 mg Admin: 05/02/18 00:14 Dose: 0.5 mg Ketorolac Tromethamine (Toradol) 15 mg IV NOW ONE Stop: 05/01/18 20:49 Last Admin: 05/01/18 20:49 Dose: 15 mg Methylprednisolone (Solu-Medrol 125 Mg Vial) 125 mg IV NOW ONE Stop: 05/01/18 20:42 Last Admin: 05/01/18 20:46 Dose: 125 mg Reevaluation(s) Reevaluation #1: As stated above patient continues to improve with above-stated therapies Consultations Consultation #1: Dr. Osei (hospitalist) happy to accept this patient and will assume care in the ICU Vital Signs - 8 hr 05/02/18 19:49 05/02/18 20:09 05/02/18 23:05 Temperature 98.4 F Pulse Rate 100 H Respiratory Rate 26 H Blood Pressure 152/78 H Pulse Oximetry 99 98 05/02/18 23:56 Temperature 97.3 F L Pulse Rate 82 Respiratory Rate 21 Blood Pressure 138/70 Pulse Oximetry 95 MDM - SOB/Dyspnea Lab Data Result diagrams: 05/02/18 04:33 05/02/18 04:33 Lab Results 05/01/18 05/01/18 05/01/18 Range/Units 20:50 20:58 20:58 WBC 25.7 H (4.5-11.0) X10^3/uL RBC 4.54 (4.5-5.9) X10^6/uL Hgb 13.1 L (13.5-17.5) g/dL Hct 39.8 L (41-53) % MCV 87.8 (80-100) fL MCH 28.9 (26-34) PG MCHC 32.9 (30-36) % RDW 13.6 (11.6-14.8) % Plt Count 359 (150-400) X10^3/uL Neut % (Auto) Not Reportable Lymph % (Auto) Not Reportable [place] % (Auto) Not Reportable Eos % (Auto) Not Reportable Baso % (Auto) Not Reportable Neut # (Auto) (0189-5918) /uL Total Counted 100 Seg Neutrophils % 82.0 H (38-70) % Band Neutrophils % 10.0 H (3-7) % Lymphocytes % (Manual) 3.0 L (25-45) % Monocytes % (Manual) 5.0 (2-11) % Neutrophils # (Manual) 89929 H (0585-4607) /uL RBC Morphology Normal morphology D-Dimer (<230) ng/mL ABG pH (7.35-7.45) ABG pCO2 (35-45) mmHg ABG pO2 (80-105) mmHg ABG HCO3 (23-27) mmol/L ABG Total CO2 (23-27) mmol/L ABG O2 Saturation (95-100) % ABG Base Excess (-2-3) mmol/L FiO2 Sodium (137-145) mmol/L Potassium (3.4-5.1) mmol/L Chloride (98-107) mmol/L Carbon Dioxide (22-32) mmol/L BUN (9-20) mg/dL Creatinine (0.66-1.25) mg/dL Estimated GFR (>60) mL/min BUN/Creatinine Ratio (6-22) Glucose (80-110) mg/dL Lactate 1.4 (0.7-2.1) mmol/L Calcium (8.4-10.2) mg/dL Phosphorus (2.3-3.7) mg/dL Total Bilirubin (0.2-1.3) mg/dL AST (17-59) IU/L ALT (21-72) IU/L Alkaline Phosphatase (38-126) U/L Troponin I (0.01-0.034) ng/mL B-Natriuretic Peptide (<100) Total Protein (6.3-8.2) g/dL Albumin (3.5-5.0) g/dL Globulin (1.7-4.1) g/dL Albumin/Globulin Ratio (1.0-2.8) Procalcitonin 0.07 (<0.5) ng/mL Nasal Screen MRSA (PCR) (Negative) 05/01/18 05/01/18 05/01/18 Range/Units 20:58 20:58 20:58 WBC (4.5-11.0) X10^3/uL RBC (4.5-5.9) X10^6/uL Hgb (13.5-17.5) g/dL Hct (41-53) % MCV (80-100) fL MCH (26-34) PG MCHC (30-36) % RDW (11.6-14.8) % Plt Count (150-400) X10^3/uL Neut % (Auto) Lymph % (Auto) [place] % (Auto) Eos % (Auto) Baso % (Auto) Neut # (Auto) (6633-6303) /uL Total Counted Seg Neutrophils % (38-70) % Band Neutrophils % (3-7) % Lymphocytes % (Manual) (25-45) % Monocytes % (Manual) (2-11) % Neutrophils # (Manual) (3368-9194) /uL RBC Morphology D-Dimer 228 (<230) ng/mL ABG pH (7.35-7.45) ABG pCO2 (35-45) mmHg ABG pO2 (80-105) mmHg ABG HCO3 (23-27) mmol/L ABG Total CO2 (23-27) mmol/L ABG O2 Saturation (95-100) % ABG Base Excess (-2-3) mmol/L FiO2 Sodium 139 138 (137-145) mmol/L Potassium 4.7 4.7 (3.4-5.1) mmol/L Chloride 98 99 (98-107) mmol/L Carbon Dioxide 29 28 (22-32) mmol/L BUN 17 17 (9-20) mg/dL Creatinine 0.60 L 0.60 L (0.66-1.25) mg/dL Estimated GFR > 60.0 > 60.0 (>60) mL/min BUN/Creatinine Ratio 28.3 H 28.3 H (6-22) Glucose 194 H 197 H (80-110) mg/dL Lactate (0.7-2.1) mmol/L Calcium 10.4 H 10.3 H (8.4-10.2) mg/dL Phosphorus 3.0 (2.3-3.7) mg/dL Total Bilirubin 0.6 (0.2-1.3) mg/dL AST (17-59) IU/L ALT (21-72) IU/L Alkaline Phosphatase (38-126) U/L Troponin I (0.01-0.034) ng/mL B-Natriuretic Peptide (<100) Total Protein (6.3-8.2) g/dL Albumin 4.4 (3.5-5.0) g/dL Globulin (1.7-4.1) g/dL Albumin/Globulin Ratio (1.0-2.8) Procalcitonin (<0.5) ng/mL Nasal Screen MRSA (PCR) (Negative) 05/01/18 05/01/18 05/02/18 Range/Units 21:25 23:05 04:33 WBC 23.9 H (4.5-11.0) X10^3/uL RBC 4.11 L (4.5-5.9) X10^6/uL Hgb 11.7 L (13.5-17.5) g/dL Hct 36.1 L (41-53) % MCV 87.9 (80-100) fL MCH 28.4 (26-34) PG MCHC 32.3 (30-36) % RDW 13.8 (11.6-14.8) % Plt Count 298 (150-400) X10^3/uL Neut % (Auto) 96.9 H Lymph % (Auto) 1.0 L [place] % (Auto) 1.0 L Eos % (Auto) 0.0 L Baso % (Auto) 1.1 Neut # (Auto) 42205 H (2505-9628) /uL Total Counted Seg Neutrophils % (38-70) % Band Neutrophils % (3-7) % Lymphocytes % (Manual) (25-45) % Monocytes % (Manual) (2-11) % Neutrophils # (Manual) (4750-3331) /uL RBC Morphology D-Dimer (<230) ng/mL ABG pH 7.48 H (7.35-7.45) ABG pCO2 35.2 (35-45) mmHg ABG pO2 93 (80-105) mmHg ABG HCO3 26 (23-27) mmol/L ABG Total CO2 27 (23-27) mmol/L ABG O2 Saturation 98 (95-100) % ABG Base Excess 2.0 (-2-3) mmol/L FiO2 30 Sodium (137-145) mmol/L Potassium (3.4-5.1) mmol/L Chloride (98-107) mmol/L Carbon Dioxide (22-32) mmol/L BUN (9-20) mg/dL Creatinine (0.66-1.25) mg/dL Estimated GFR (>60) mL/min BUN/Creatinine Ratio (6-22) Glucose (80-110) mg/dL Lactate (0.7-2.1) mmol/L Calcium (8.4-10.2) mg/dL Phosphorus (2.3-3.7) mg/dL Total Bilirubin (0.2-1.3) mg/dL AST (17-59) IU/L ALT (21-72) IU/L Alkaline Phosphatase (38-126) U/L Troponin I (0.01-0.034) ng/mL B-Natriuretic Peptide 57.9 (<100) Total Protein (6.3-8.2) g/dL Albumin (3.5-5.0) g/dL Globulin (1.7-4.1) g/dL Albumin/Globulin Ratio (1.0-2.8) Procalcitonin (<0.5) ng/mL Nasal Screen MRSA (PCR) Negative for mrsa (Negative) 05/02/18 Range/Units 04:33 WBC (4.5-11.0) X10^3/uL RBC (4.5-5.9) X10^6/uL Hgb (13.5-17.5) g/dL Hct (41-53) % MCV (80-100) fL MCH (26-34) PG MCHC (30-36) % RDW (11.6-14.8) % Plt Count (150-400) X10^3/uL Neut % (Auto) Lymph % (Auto) [place] % (Auto) Eos % (Auto) Baso % (Auto) Neut # (Auto) (4370-7441) /uL Total Counted Seg Neutrophils % (38-70) % Band Neutrophils % (3-7) % Lymphocytes % (Manual) (25-45) % Monocytes % (Manual) (2-11) % Neutrophils # (Manual) (3989-7642) /uL RBC Morphology D-Dimer (<230) ng/mL ABG pH (7.35-7.45) ABG pCO2 (35-45) mmHg ABG pO2 (80-105) mmHg ABG HCO3 (23-27) mmol/L ABG Total CO2 (23-27) mmol/L ABG O2 Saturation (95-100) % ABG Base Excess (-2-3) mmol/L FiO2 Sodium 143 (137-145) mmol/L Potassium 4.4 (3.4-5.1) mmol/L Chloride 102 (98-107) mmol/L Carbon Dioxide 30 (22-32) mmol/L BUN 16 (9-20) mg/dL Creatinine 0.70 (0.66-1.25) mg/dL Estimated GFR > 60.0 (>60) mL/min BUN/Creatinine Ratio 22.9 H (6-22) Glucose 177 H (80-110) mg/dL Lactate (0.7-2.1) mmol/L Calcium 9.5 (8.4-10.2) mg/dL Phosphorus (2.3-3.7) mg/dL Total Bilirubin 0.3 (0.2-1.3) mg/dL AST 16 L (17-59) IU/L ALT 25 (21-72) IU/L Alkaline Phosphatase 55 (38-126) U/L Troponin I < 0.012 (0.01-0.034) ng/mL B-Natriuretic Peptide (<100) Total Protein 6.4 (6.3-8.2) g/dL Albumin 3.7 (3.5-5.0) g/dL Globulin 2.7 (1.7-4.1) g/dL Albumin/Globulin Ratio 1.4 (1.0-2.8) Procalcitonin (<0.5) ng/mL Nasal Screen MRSA (PCR) (Negative) Point of Care Testing Glucose POC 203 Discharge Plan Departure Patient Disposition: Admitted As Inpatient Clinical Impression: Acute and chronic respiratory failure with hypoxia, COPD with exacerbation, Acute pneumonia Discharge Date/Time: 05/01/18 22:40 Interventions: ED Discharge Assessment Last Done: 05/01/18 22:56 Admit Date/Time: 05/01/18 22:26 Admit Provider: Yelitza Osei
[2018-05-01] MEDS: SODIUM CHLORIDE 0.9% 1,000 ML 1000 ML IV (20:57)
[2018-05-01 21:17] LABS: Hematocrit 39.8 % (41-53); Hemoglobin 13.1 g/dL (13.5-17.5); Mean Corpuscular HGB Conc 32.9 % (30-36); Mean Corpuscular Hemoglobin 28.9 PG (26-34); Mean Corpuscular Volume 87.8 fL (80-100); Platelet Count 359 X10^3/uL (150-400); Red Blood Cell Count 4.54 X10^6/uL (4.5-5.9); Red Cell Distribution Width 13.6 % (11.6-14.8)
[2018-05-01 21:19] LABS: Lactate (Lactic Acid) 1.4 mmol/L (0.7-2.1)
[2018-05-01 21:21] LABS: Add Manual Diff / Slide Review YES; White Blood Cell Count 25.7 X10^3/uL (4.5-11.0)
--- NOTE | 2018-05-01 21:26 | ED_ITS ---
HPI - SOB/Dyspnea General Chief Complaint: Shortness of Breath/Dyspnea Stated Complaint: Difficulty Breathing Time Seen by Provider: 05/01/18 20:41 Source: patient, family and EMS Mode of arrival: EMS Limitations: no limitations History of Present Illness 67-year-old male with extensive cardiac and pulmonary history on 3 L home oxygen presents with rapidly worsening symptoms over the past 3 hr. He has had low-grade fever and chills but denies any change in his cough. He denies any dizziness, weakness or lightheadedness. He is in significant respiratory distress in EMS has been unsuccessful in improving symptoms with bronchodilators. He denies any recent hospitalizations. He denies nausea, vomiting or diarrhea. MD Complaint: shortness of breath Onset (ago): hour(s) Severity: severe Consistency/Duration: progressively worsening Relieving factors: nothing Exacerbating factors: exertion Known history of: COPD Associated symptoms: fever and cough Treatment prior to arrival: oxygen and bronchodilator Related Data Home oxygen amount: 3 liters Home Medications Medication Instructions Recorded Confirmed cholecalciferol (vitamin D3) 1,000 unit PO QDAY #0 02/07/17 05/01/18 [Vitamin D3] guaifenesin [Mucinex] 600 mg PO Q12H #0 02/07/17 05/01/18 multivitamin [Multiple Vitamins] 1 tab PO QDAY #0 02/07/17 05/01/18 albuterol sulfate [Proventil HFA] 2 puff INH Q4H #0 02/08/17 05/01/18 tiotropium bromide [Spiriva with 1 puff INH QDAY #0 08/03/17 05/01/18 HandiHaler] Spacer: Inhaler Spacer Device 1 ea INHALATION DIRECTED 01/26/18 05/01/18 albuterol sulfate 3 ml INHALATION TID 01/26/18 05/01/18 aspirin 81 mg PO DAILY 01/26/18 05/01/18 fluticasone-salmeterol [Advair 1 inh INHALATION Q12H 01/26/18 05/01/18 Diskus] ipratropium-albuterol 1 dose INHALATION PRN PRN 01/26/18 05/01/18 loratadine 10 mg PO DAILY 01/26/18 05/01/18 tobramycin with nebulizer 300 mg INHALATION DAILY 05/01/18 05/01/18 Previous Rx's Medication Instructions Recorded atorvastatin [Lipitor] 20 mg PO HS #90 tab 09/15/17 metformin ER 500 mg 1,000 mg PO BID #180 tab 12/22/17 tablet,extended release 24 hr furosemide 40 mg tablet 40 mg PO DAILY #30 tab 02/08/18 tamsulosin 0.4 mg capsule 0.4 mg PO QDAY #90 cap 03/22/18 lorazepam 0.5 mg tablet 0.5 mg PO BID PRN #60 tab 04/06/18 Allergies Allergy/AdvReac Type Severity Reaction Status Date / Time felodipine [FELODIPINE] Allergy Intermediate SWELLING Verified 04/20/18 10:07 Review of Systems Review of Systems All systems reviewed & are unremarkable except as noted in HPI and below Constitutional Reports chills, Reports fever(s), Denies lethargy and Reports weakness Eyes Denies change in vision, Denies eye discharge, Denies irritation and Denies loss of vision ENT Ears, Nose, Mouth, and Throat: Denies change in voice, Denies neck pain and Denies sore throat Cardiovascular Denies chest pain, Denies irregular heart rhythm, Denies lightheadedness, Denies palpitations, Reports dyspnea, Reports dyspnea on exertion and Denies orthopnea Respiratory Reports cough, Reports dyspnea, Reports dyspnea on exertion and Denies wheezing Gastrointestinal Gastrointestinal: Denies abdominal pain, Denies change in bowel habits, Denies diarrhea, Denies nausea and Denies vomiting Genitourinary Denies hematuria, Denies flank pain, Denies urinary incontinence and Denies urinary urgency Musculoskeletal Denies neck pain Integumentary/Breasts Denies pruritus, Denies erythema, Denies rash and Denies wounds Neurologic Denies confusion, Denies loss of vision and Reports weakness Psychiatric Denies anxiety, Denies confusion, Denies depression, Denies homicidal ideation and Denies suicidal ideation Endocrine Denies palpitations Hematologic/Lymphatic Denies easy bruising Allergic/Immunologic Denies wheezing [facility] Medical History Anxiety (Chronic Unknown) Peripheral vascular disease (Chronic Unknown) Hx of small bowel obstruction (Resolved 03/2015) Hyperlipemia (Chronic Unknown) Chronic respiratory failure with hypoxia (Chronic Unknown) Nontuberculous mycobacterial infection (Chronic 2014) Coronary artery disease (Chronic Unknown) History of colon cancer (Resolved ~2010) BPH (benign prostatic hyperplasia) (Chronic Unknown) COPD (chronic obstructive pulmonary disease) (Chronic) Dyspnea (Chronic) COPD (chronic obstructive pulmonary disease) (Chronic Unknown) Diabetes (Chronic Unknown) COPD (chronic obstructive pulmonary disease) (Inactive) Dependent edema (Inactive) Surgical History H/O cardiac catheterization (Resolved 2010) S/P small bowel resection (Resolved 03/2015) Hx of hernia repair (Resolved 2008) S/P colon resection (Resolved 2010) Hx of cataract surgery (Resolved 2014) Family History Mother Cancer Social History household members: spouse Smoking Status: Former smoker Exam Narrative Exam Narrative: 67-year-old severely ill patient and tremendous respiratory distress including use of accessory muscles, tripodding, pursed lip breathing Initial Vital Signs Initial Vital Signs: Vital Signs Temperature 100.6 F H 05/01/18 20:41 Pulse Rate 137 H 05/01/18 20:41 Respiratory Rate 38 H 05/01/18 20:41 Blood Pressure 188/168 H 05/01/18 20:41 Pulse Oximetry 98 05/01/18 20:41 Const General: cooperative, well developed and acute distress Nutritional Appearance: well nourished Orientation: alert, awake, oriented x3 and not confused [facility] Head: normocephalic and atraumatic Ears: external ears normal and TM's normal bilaterally Nose: external nose normal and No nasal discharge Face and sinus: sinuses nontender, face symmetric, no sinus tenderness and No dry mucous membranes Mouth: oral mucosae normal and moist mucous membranes Teeth and gingiva: dentition normal Throat: tonsils normal and uvula midline Eyes General: appearance normal, both eyes and all related structures Eyelids: eyelids normal Conjunctivae: conjunctivae normal Sclera: sclerae normal Pupils: PERRL EOM: EOM intact bilaterally Chest Chest: normal inspection of the chest Resp Effort & Inspection: cough, respiratory distress, retractions, tachypneic, uses accessory muscles and prolonged expiratory phase Auscultation: diminished lung sounds, no rales, no rhonchi and no wheezes Cardio Rate: tachycardic Rhythm: regular rhythm Heart Sounds: no click, no gallops, no murmurs and no rubs Pulses: normal peripheral pulses GI Inspection: non-distended Palpation: soft, no hepatosplenomegaly, No guarding, No pulsatile mass and No tender Auscultation: normal bowel sounds Back/Spine/Pelvis Back: No CVA tenderness Cervical Spine: cervical ROM normal and No pain with cervical ROM Thoracic/Lumbar Spine: thoracic and lumbar spine normal to inspection Skin General: no rashes or lesions noted, No jaundice and No petechiae Neuro General: alert, oriented x3, gait normal and no focal motor deficits Speech: speech normal Extrem General: full ROM, no clubbing, cyanosis or edema, no pedal edema and no calf tenderness Course Course Narrative: Patient had 2nd IV placed with orders for antibiotics, Solu- Medrol and fluids nearly immediately upon arrival. BiPAP was waiting with intubation supplies at the bedside. The patient was slow to improve on noninvasive pressure ventilation but after about 10 min showed tremendous improvement in work of breathing and vital signs. Though BiPAP would not of an my 1st choice of and straightforward COPD case the presence of rapid change in clinical picture along with fever suggested some utility Decision to Admit Date: 05/01/18 Decision to Admit time: 21:31 Orders Ordered: ED Orders 05/03/18 00:21 Sputum Culture Routine 05/03/18 05:00 Basic Metabolic Panel Routine Complete Blood Count AUTO DIFF Routine Acetaminophen (Tylenol) 650 mg PO Q6HR PRN PRN Reason: As Needed for Fever/Mild Pain Albuterol (Ventolin) 2.5 mg INH [id number] PRN PRN Reason: Shortness Of Breath Albuterol/Ipratropium (Duoneb) 3 ml INH [id number] [facility] Last Admin: 05/02/18 23:06 Dose: 3 ml Admin: 05/02/18 19:49 Dose: 3 ml Admin: 05/02/18 14:54 Dose: 3 ml Aspirin (Aspirin Ec) 81 mg PO DAILY [facility] Last Admin: 05/02/18 08:53 Dose: 81 mg Atorvastatin Calcium (Lipitor) 20 mg PO BEDTIME [facility] Last Admin: 05/02/18 21:16 Dose: 20 mg Bisacodyl (Dulcolax) 10 mg [place] DAILY PRN PRN Reason: Constipation Calcium Carbonate (Tums) 500 mg PO TID PRN PRN Reason: Dyspepsia Last Admin: 05/02/18 23:06 Dose: 500 mg Dextrose (D50w) 25 gm IV PRN PRN; Protocol PRN Reason: Hypoglycemia Docusate Sodium (Colace) 100 mg PO BID [facility] Last Admin: 05/02/18 21:16 Dose: 100 mg Admin: 05/02/18 08:59 Dose: 100 mg Enoxaparin Sodium (Lovenox) 40 mg SUBCUT DAILY [facility] Last Admin: 05/02/18 08:54 Dose: 40 mg Lactated Ringer's (Lactated Ringers) 1,000 mls @ 100 mls/hr IV CONT DIAZ Last Admin: 05/02/18 21:21 Dose: 100 mls/hr Infusion: 05/02/18 21:18 Dose: 100 mls/hr Admin: 05/02/18 11:18 Dose: 100 mls/hr Infusion: 05/02/18 10:09 Dose: 100 mls/hr Admin: 05/02/18 00:09 Dose: 100 mls/hr Piperacillin/Tazobactam/Dextrose (Zosyn) 3.375 gm in 50 mls @ 100 mls/hr IV Q8H [facility] Last Admin: 05/03/18 00:31 Dose: 100 mls/hr Infusion: 05/02/18 21:18 Dose: 0 mls/hr Admin: 05/02/18 17:25 Dose: 100 mls/hr Infusion: 05/02/18 10:21 Dose: 0 mls/hr Admin: 05/02/18 08:53 Dose: 100 mls/hr Infusion: 05/02/18 03:01 Dose: 0 mls/hr Admin: 05/02/18 00:59 Dose: 100 mls/hr Tigecycline 50 mg/ Sodium (Chloride) 100 mls @ 200 mls/hr IV Q12H [facility] Insulin Aspart (Novolog Flexpen) 0 unit SUBCUT ACHS [facility]; Protocol Last Admin: 05/02/18 21:18 Dose: 1 unit Admin: 05/02/18 17:26 Dose: Not Given Admin: 05/02/18 12:20 Dose: 1 unit Admin: 05/02/18 09:06 Dose: 1 unit Insulin Glargine (Lantus Solostar (Pen)) 20 unit SUBCUT BEDTIME [facility] Last Admin: 05/02/18 21:19 Dose: 20 unit Admin: 05/02/18 00:24 Dose: 20 unit Lorazepam (Ativan) 0.5 mg IV Q4HR PRN PRN Reason: Anxiety Methylprednisolone (Solu-Medrol 125 Mg Vial) 60 mg IV Q6H [facility] Last Admin: 05/03/18 00:31 Dose: 60 mg Admin: 05/02/18 17:26 Dose: 60 mg Admin: 05/02/18 12:19 Dose: 60 mg Admin: 05/02/18 06:24 Dose: 60 mg Admin: 05/02/18 00:28 Dose: 60 mg Metoclopramide HCl (Reglan) 10 mg IV Q6HR PRN PRN Reason: Nausea And Vomiting Morphine Sulfate (Morphine) 2 mg IV Q4HR PRN PRN Reason: Pain, Moderate (4-6) Ranitidine HCl (Zantac) 150 mg PO BID [facility] Sodium Chloride (Normal Saline 0.9% Flush) 10 ml IV BID [facility] Tamsulosin HCl (Flomax) 0.4 mg PO DAILY [facility] Last Admin: 05/02/18 08:54 Dose: 0.4 mg Discontinued Medications Albuterol/Ipratropium (Duoneb) 3 ml INH NOW ONE Stop: 05/01/18 21:04 Last Admin: 05/01/18 20:50 Dose: 3 ml Albuterol/Ipratropium (Duoneb) 3 ml INH RTQ4HR PRN PRN Reason: Shortness Of Breath Albuterol/Ipratropium (Duoneb) 3 ml INH [id number] PRN PRN Reason: Shortness Of Breath Dextrose (D50w) 25 gm IV PRN PRN PRN Reason: Hypoglycemia Ceftriaxone Sodium/Dextrose (Rocephin) 1 gm in 50 mls @ 100 mls/hr IV NOW ONE Stop: 05/01/18 21:10 Last Infusion: 05/01/18 21:49 Dose: 0 mls/hr Admin: 05/01/18 20:46 Dose: 100 mls/hr Sodium Chloride (Normal Saline 0.9%) 1,000 mls @ 1,000 mls/hr IV BOLUS ONE Stop: 05/01/18 21:40 Last Infusion: 05/01/18 22:26 Dose: 0 mls/hr Admin: 05/01/18 20:57 Dose: 1,000 mls/hr Piperacillin/Tazobactam/Dextrose (Zosyn) 3.375 gm in 50 mls @ 100 mls/hr IV Q8H [facility] Last Admin: 05/02/18 00:35 Dose: Famotidine (Pepcid) 20 mg in 50 mls @ 200 mls/hr IV Q12HR [facility] Last Infusion: 05/02/18 13:26 Dose: 0 mls/hr Admin: 05/02/18 12:17 Dose: 200 mls/hr Infusion: 05/02/18 01:00 Dose: 0 mls/hr Admin: 05/02/18 00:25 Dose: 200 mls/hr Levofloxacin (Levaquin) 750 mg in 150 mls @ 100 mls/hr IV Q24H [facility] Last Admin: 05/02/18 00:38 Dose: Tigecycline 100 mg/ Sodium (Chloride) 100 mls @ 100 mls/hr IV NOW ONE Stop: 05/02/18 20:29 Last Infusion: 05/02/18 21:31 Dose: 0 mls/hr Admin: 05/02/18 19:39 Dose: 100 mls/hr Influenza Virus Vaccine (Flu Vaccine) 0.5 ml IM .ONCE ONE Stop: 05/02/18 09:01 Last Admin: 05/02/18 12:16 Dose: 0.5 ml Insulin Aspart (Novolog Flexpen) 4 unit SUBCUT AC [facility] Ipratropium [place] (Atrovent Neb) 0.5 mg INH RTQ4HR [facility] Last Admin: 05/02/18 11:21 Dose: 0.5 mg Admin: 05/02/18 07:48 Dose: 0.5 mg Admin: 05/02/18 03:31 Dose: 0.5 mg Admin: 05/02/18 00:14 Dose: 0.5 mg Ketorolac Tromethamine (Toradol) 15 mg IV NOW ONE Stop: 05/01/18 20:49 Last Admin: 05/01/18 20:49 Dose: 15 mg Methylprednisolone (Solu-Medrol 125 Mg Vial) 125 mg IV NOW ONE Stop: 05/01/18 20:42 Last Admin: 05/01/18 20:46 Dose: 125 mg Reevaluation(s) Reevaluation #1: As stated above patient continues to improve with above-stated therapies Consultations Consultation #1: Dr. Osei (hospitalist) happy to accept this patient and will assume care in the ICU Vital Signs - 8 hr 05/02/18 19:49 05/02/18 20:09 05/02/18 23:05 Temperature 98.4 F Pulse Rate 100 H Respiratory Rate 26 H Blood Pressure 152/78 H Pulse Oximetry 99 98 05/02/18 23:56 Temperature 97.3 F L Pulse Rate 82 Respiratory Rate 21 Blood Pressure 138/70 Pulse Oximetry 95 MDM - SOB/Dyspnea Lab Data Result diagrams: 05/02/18 04:33 05/02/18 04:33 Lab Results 05/01/18 05/01/18 05/01/18 Range/Units 20:50 20:58 20:58 WBC 25.7 H (4.5-11.0) X10^3/uL RBC 4.54 (4.5-5.9) X10^6/uL Hgb 13.1 L (13.5-17.5) g/dL Hct 39.8 L (41-53) % MCV 87.8 (80-100) fL MCH 28.9 (26-34) PG MCHC 32.9 (30-36) % RDW 13.6 (11.6-14.8) % Plt Count 359 (150-400) X10^3/uL Neut % (Auto) Not Reportable Lymph % (Auto) Not Reportable [place] % (Auto) Not Reportable Eos % (Auto) Not Reportable Baso % (Auto) Not Reportable Neut # (Auto) (6308-6707) /uL Total Counted 100 Seg Neutrophils % 82.0 H (38-70) % Band Neutrophils % 10.0 H (3-7) % Lymphocytes % (Manual) 3.0 L (25-45) % Monocytes % (Manual) 5.0 (2-11) % Neutrophils # (Manual) 37923 H (1231-0637) /uL RBC Morphology Normal morphology D-Dimer (<230) ng/mL ABG pH (7.35-7.45) ABG pCO2 (35-45) mmHg ABG pO2 (80-105) mmHg ABG HCO3 (23-27) mmol/L ABG Total CO2 (23-27) mmol/L ABG O2 Saturation (95-100) % ABG Base Excess (-2-3) mmol/L FiO2 Sodium (137-145) mmol/L Potassium (3.4-5.1) mmol/L Chloride (98-107) mmol/L Carbon Dioxide (22-32) mmol/L BUN (9-20) mg/dL Creatinine (0.66-1.25) mg/dL Estimated GFR (>60) mL/min BUN/Creatinine Ratio (6-22) Glucose (80-110) mg/dL Lactate 1.4 (0.7-2.1) mmol/L Calcium (8.4-10.2) mg/dL Phosphorus (2.3-3.7) mg/dL Total Bilirubin (0.2-1.3) mg/dL AST (17-59) IU/L ALT (21-72) IU/L Alkaline Phosphatase (38-126) U/L Troponin I (0.01-0.034) ng/mL B-Natriuretic Peptide (<100) Total Protein (6.3-8.2) g/dL Albumin (3.5-5.0) g/dL Globulin (1.7-4.1) g/dL Albumin/Globulin Ratio (1.0-2.8) Procalcitonin 0.07 (<0.5) ng/mL Nasal Screen MRSA (PCR) (Negative) 05/01/18 05/01/18 05/01/18 Range/Units 20:58 20:58 20:58 WBC (4.5-11.0) X10^3/uL RBC (4.5-5.9) X10^6/uL Hgb (13.5-17.5) g/dL Hct (41-53) % MCV (80-100) fL MCH (26-34) PG MCHC (30-36) % RDW (11.6-14.8) % Plt Count (150-400) X10^3/uL Neut % (Auto) Lymph % (Auto) [place] % (Auto) Eos % (Auto) Baso % (Auto) Neut # (Auto) (2593-5890) /uL Total Counted Seg Neutrophils % (38-70) % Band Neutrophils % (3-7) % Lymphocytes % (Manual) (25-45) % Monocytes % (Manual) (2-11) % Neutrophils # (Manual) (1967-4655) /uL RBC Morphology D-Dimer 228 (<230) ng/mL ABG pH (7.35-7.45) ABG pCO2 (35-45) mmHg ABG pO2 (80-105) mmHg ABG HCO3 (23-27) mmol/L ABG Total CO2 (23-27) mmol/L ABG O2 Saturation (95-100) % ABG Base Excess (-2-3) mmol/L FiO2 Sodium 139 138 (137-145) mmol/L Potassium 4.7 4.7 (3.4-5.1) mmol/L Chloride 98 99 (98-107) mmol/L Carbon Dioxide 29 28 (22-32) mmol/L BUN 17 17 (9-20) mg/dL Creatinine 0.60 L 0.60 L (0.66-1.25) mg/dL Estimated GFR > 60.0 > 60.0 (>60) mL/min BUN/Creatinine Ratio 28.3 H 28.3 H (6-22) Glucose 194 H 197 H (80-110) mg/dL Lactate (0.7-2.1) mmol/L Calcium 10.4 H 10.3 H (8.4-10.2) mg/dL Phosphorus 3.0 (2.3-3.7) mg/dL Total Bilirubin 0.6 (0.2-1.3) mg/dL AST (17-59) IU/L ALT (21-72) IU/L Alkaline Phosphatase (38-126) U/L Troponin I (0.01-0.034) ng/mL B-Natriuretic Peptide (<100) Total Protein (6.3-8.2) g/dL Albumin 4.4 (3.5-5.0) g/dL Globulin (1.7-4.1) g/dL Albumin/Globulin Ratio (1.0-2.8) Procalcitonin (<0.5) ng/mL Nasal Screen MRSA (PCR) (Negative) 05/01/18 05/01/18 05/02/18 Range/Units 21:25 23:05 04:33 WBC 23.9 H (4.5-11.0) X10^3/uL RBC 4.11 L (4.5-5.9) X10^6/uL Hgb 11.7 L (13.5-17.5) g/dL Hct 36.1 L (41-53) % MCV 87.9 (80-100) fL MCH 28.4 (26-34) PG MCHC 32.3 (30-36) % RDW 13.8 (11.6-14.8) % Plt Count 298 (150-400) X10^3/uL Neut % (Auto) 96.9 H Lymph % (Auto) 1.0 L [place] % (Auto) 1.0 L Eos % (Auto) 0.0 L Baso % (Auto) 1.1 Neut # (Auto) 98351 H (0424-7911) /uL Total Counted Seg Neutrophils % (38-70) % Band Neutrophils % (3-7) % Lymphocytes % (Manual) (25-45) % Monocytes % (Manual) (2-11) % Neutrophils # (Manual) (5761-1298) /uL RBC Morphology D-Dimer (<230) ng/mL ABG pH 7.48 H (7.35-7.45) ABG pCO2 35.2 (35-45) mmHg ABG pO2 93 (80-105) mmHg ABG HCO3 26 (23-27) mmol/L ABG Total CO2 27 (23-27) mmol/L ABG O2 Saturation 98 (95-100) % ABG Base Excess 2.0 (-2-3) mmol/L FiO2 30 Sodium (137-145) mmol/L Potassium (3.4-5.1) mmol/L Chloride (98-107) mmol/L Carbon Dioxide (22-32) mmol/L BUN (9-20) mg/dL Creatinine (0.66-1.25) mg/dL Estimated GFR (>60) mL/min BUN/Creatinine Ratio (6-22) Glucose (80-110) mg/dL Lactate (0.7-2.1) mmol/L Calcium (8.4-10.2) mg/dL Phosphorus (2.3-3.7) mg/dL Total Bilirubin (0.2-1.3) mg/dL AST (17-59) IU/L ALT (21-72) IU/L Alkaline Phosphatase (38-126) U/L Troponin I (0.01-0.034) ng/mL B-Natriuretic Peptide 57.9 (<100) Total Protein (6.3-8.2) g/dL Albumin (3.5-5.0) g/dL Globulin (1.7-4.1) g/dL Albumin/Globulin Ratio (1.0-2.8) Procalcitonin (<0.5) ng/mL Nasal Screen MRSA (PCR) Negative for mrsa (Negative) 05/02/18 Range/Units 04:33 WBC (4.5-11.0) X10^3/uL RBC (4.5-5.9) X10^6/uL Hgb (13.5-17.5) g/dL Hct (41-53) % MCV (80-100) fL MCH (26-34) PG MCHC (30-36) % RDW (11.6-14.8) % Plt Count (150-400) X10^3/uL Neut % (Auto) Lymph % (Auto) [place] % (Auto) Eos % (Auto) Baso % (Auto) Neut # (Auto) (1771-0975) /uL Total Counted Seg Neutrophils % (38-70) % Band Neutrophils % (3-7) % Lymphocytes % (Manual) (25-45) % Monocytes % (Manual) (2-11) % Neutrophils # (Manual) (8617-2393) /uL RBC Morphology D-Dimer (<230) ng/mL ABG pH (7.35-7.45) ABG pCO2 (35-45) mmHg ABG pO2 (80-105) mmHg ABG HCO3 (23-27) mmol/L ABG Total CO2 (23-27) mmol/L ABG O2 Saturation (95-100) % ABG Base Excess (-2-3) mmol/L FiO2 Sodium 143 (137-145) mmol/L Potassium 4.4 (3.4-5.1) mmol/L Chloride 102 (98-107) mmol/L Carbon Dioxide 30 (22-32) mmol/L BUN 16 (9-20) mg/dL Creatinine 0.70 (0.66-1.25) mg/dL Estimated GFR > 60.0 (>60) mL/min BUN/Creatinine Ratio 22.9 H (6-22) Glucose 177 H (80-110) mg/dL Lactate (0.7-2.1) mmol/L Calcium 9.5 (8.4-10.2) mg/dL Phosphorus (2.3-3.7) mg/dL Total Bilirubin 0.3 (0.2-1.3) mg/dL AST 16 L (17-59) IU/L ALT 25 (21-72) IU/L Alkaline Phosphatase 55 (38-126) U/L Troponin I < 0.012 (0.01-0.034) ng/mL B-Natriuretic Peptide (<100) Total Protein 6.4 (6.3-8.2) g/dL Albumin 3.7 (3.5-5.0) g/dL Globulin 2.7 (1.7-4.1) g/dL Albumin/Globulin Ratio 1.4 (1.0-2.8) Procalcitonin (<0.5) ng/mL Nasal Screen MRSA (PCR) (Negative) Point of Care Testing Glucose POC 203 Discharge Plan Departure Patient Disposition: Admitted As Inpatient Clinical Impression: Acute and chronic respiratory failure with hypoxia, COPD with exacerbation, Acute pneumonia Discharge Date/Time: 05/01/18 22:40 Interventions: ED Discharge Assessment Last Done: 05/01/18 22:56 Admit Date/Time: 05/01/18 22:26 Admit Provider: Yelitza Osei
[2018-05-01 21:27] LABS: BUN Creatinine Ratio 28.3 (6-22); Bilirubin Total 0.6 mg/dL (0.2-1.3); Blood Urea Nitrogen 17 mg/dL (9-20); Calcium 10.4 mg/dL (8.4-10.2); Carbon Dioxide 29 mmol/L (22-32); Chloride 98 mmol/L (98-107); Estimated Glomerular Filt Rate > 60.0 mL/min (>60); Glucose 194 mg/dL (80-110); HEMOLYSIS < 15 (0-50); Potassium 4.7 mmol/L (3.4-5.1); Sodium 139 mmol/L (137-145)
[2018-05-01 21:36] LABS: HCO3 ABG 26 mmol/L (23-27); PCO2 ABG 35.2 mmHg (35-45); PO2 ABG 93 mmHg (80-105); pH ABG 7.48 (7.35-7.45)
[2018-05-01 21:37] LABS: Fractionated Inspired Oxygen 30; Oxygen Saturation ABG 98 % (95-100); TCO2 ABG 27 mmol/L (23-27)
[2018-05-01 21:40] LABS: Neutrophils Absolute Manual 23644 /uL (3000-5900); Total Cells Counted 100
[2018-05-01 21:46] LABS: Procalcitonin 0.07 ng/mL (<0.5); RBC Morphology Normal Morphology
--- NOTE | 2018-05-01 23:10 | P.HP_ITS ---
History of Present Illness Date Patient Seen: 05/01/18 Chief complaint: Difficulty Breathing Narrative: Patient has known chronic respiratory failure using 2-3 liters of oxygen daily. He was recently treated with levofloxacin with improvement in his symptoms. Patient had chronic MAC which was finally cleared from his sputum in March of this year. He has had stenotrophomonas resistant to levofloxacin and TMP/Sulfa. Patient recently started on inhaled tobramycin per his patient educator. He uses the tobramycin every other month, his last treatment was in March. Patient presents with abrupt onset of shortness of breath. Despite multiple nebulizers by the EMT's the patient arrived in extremis. He ultimately had improvement of his symptoms with BIpap, steroids, oxygen, and nebulizers. He reports cough with brownish sputum, feeling hot, but no chills, he has some swelling in the right leg for a few weeks. He denies chest pain, nausea, vomiting, hemetemsis, dysuria, pyuria, weight loss, night sweats, joint pains, headache, or rashes. He denies palpitations. Patient is admitted to the hospital for treatment of his acute respiratory failure Patient History Medical History Anxiety (Chronic Unknown) Peripheral vascular disease (Chronic Unknown) Hx of small bowel obstruction (Resolved 03/2015) Hyperlipemia (Chronic Unknown) Chronic respiratory failure with hypoxia (Chronic Unknown) Nontuberculous mycobacterial infection (Chronic 2014) Coronary artery disease (Chronic Unknown) History of colon cancer (Resolved ~2010) BPH (benign prostatic hyperplasia) (Chronic Unknown) COPD (chronic obstructive pulmonary disease) (Chronic) Dyspnea (Chronic) COPD (chronic obstructive pulmonary disease) (Chronic Unknown) Diabetes (Chronic Unknown) COPD (chronic obstructive pulmonary disease) (Inactive) Dependent edema (Inactive) Surgical History H/O cardiac catheterization (Resolved 2010) S/P small bowel resection (Resolved 03/2015) Hx of hernia repair (Resolved 2008) S/P colon resection (Resolved 2010) Hx of cataract surgery (Resolved 2014) Family & Social History Family History Mother Cancer Tobacco & Substance use: Smoking Status Former smoker alcohol intake frequency 0-2 drinks per day Substance Use Type does not use Meds Home Medications Medication Instructions Recorded Confirmed Type cholecalciferol (vitamin D3) 1,000 unit PO QDAY #0 02/07/17 05/01/18 History [Vitamin D3] guaifenesin [Mucinex] 600 mg PO Q12H #0 02/07/17 05/01/18 History multivitamin [Multiple Vitamins] 1 tab PO QDAY #0 02/07/17 05/01/18 History albuterol sulfate [Proventil HFA] 2 puff INH Q4H #0 02/08/17 05/01/18 History tiotropium bromide [Spiriva with 1 puff INH QDAY #0 08/03/17 05/01/18 History HandiHaler] atorvastatin [Lipitor] 20 mg PO HS #90 tab 09/15/17 05/01/18 Rx metformin ER 500 mg 1,000 mg PO BID #180 tab 12/22/17 05/01/18 Rx tablet,extended release 24 hr Spacer: Inhaler Spacer Device 1 ea INHALATION DIRECTED 01/26/18 05/01/18 History albuterol sulfate 3 ml INHALATION TID 01/26/18 05/01/18 History aspirin 81 mg PO DAILY 01/26/18 05/01/18 History fluticasone-salmeterol [Advair 1 inh INHALATION Q12H 01/26/18 05/01/18 History Diskus] ipratropium-albuterol 1 dose INHALATION PRN PRN 01/26/18 05/01/18 History loratadine 10 mg PO DAILY 01/26/18 05/01/18 History furosemide 40 mg tablet 40 mg PO DAILY #30 tab 02/08/18 05/01/18 Rx tamsulosin 0.4 mg capsule 0.4 mg PO QDAY #90 cap 03/22/18 05/01/18 Rx lorazepam 0.5 mg tablet 0.5 mg PO BID PRN #60 tab 04/06/18 05/01/18 Rx tobramycin with nebulizer 300 mg INHALATION DAILY 05/01/18 05/01/18 History Allergies Allergy/AdvReac Type Severity Reaction Status Date / Time felodipine [FELODIPINE] Allergy Intermediate SWELLING Verified 04/20/18 10:07 Review of Systems Review of Systems All systems reviewed & are unremarkable except as noted in HPI and below Exam Vital Signs (past 8 hours): - 05/01/18 20:41 05/01/18 20:50 05/01/18 20:58 Temperature 100.6 F H Pulse Rate 137 H 133 H 133 H Respiratory Rate 38 H 30 H 24 Blood Pressure 188/168 H Blood Pressure [Right Arm] 159/72 H Pulse Oximetry 98 94 05/01/18 21:30 05/01/18 21:34 05/01/18 21:45 Temperature 100.3 F H 100.3 F H Pulse Rate 117 H 115 H Respiratory Rate 27 H 26 H Blood Pressure Blood Pressure [Right Arm] 149/60 H Pulse Oximetry 99 98 05/01/18 22:00 05/01/18 22:30 05/01/18 22:37 Temperature Pulse Rate 112 H 108 H Respiratory Rate 29 H 29 H Blood Pressure 117/65 Blood Pressure [Right Arm] 117/65 Pulse Oximetry 99 96 Fraction of Inspired Oxygen 30 Oxygen Delivery Method BiPAP Oxygen Flow Rate 15 Narrative Exam Narrative: Pleasant gentleman with increased work of breathing, tachypnea, using accessory muscles Oropharynx : moist mucus membranes Neck: supple Lungs: decreased breath sounds with scattered rhonchi bilaterally CV: Tachycardic nl S1S2 Abd: soft/ non tender/ ventral hernia present Ext: right pedal edema Neuro: non focal Psych: patient is awake,alert, appropriate, no delusions or hallucinations skin: no lesions noted Objective Labs Result Diagrams: 05/01/18 20:58 05/01/18 20:58 Labs: Laboratory Results - last 24 hr 05/01/18 05/01/18 05/01/18 20:50 20:58 20:58 WBC 25.7 H RBC 4.54 Hgb 13.1 L Hct 39.8 L MCV 87.8 MCH 28.9 MCHC 32.9 RDW 13.6 Plt Count 359 Neut % (Auto) Not Reportable Lymph % (Auto) Not Reportable [place] % (Auto) Not Reportable Eos % (Auto) Not Reportable Baso % (Auto) Not Reportable Total Counted 100 Seg Neutrophils % 82.0 H Band Neutrophils % 10.0 H Lymphocytes % (Manual) 3.0 L Monocytes % (Manual) 5.0 Neutrophils # (Manual) 79810 H RBC Morphology Normal morphology ABG pH ABG pCO2 ABG pO2 ABG HCO3 ABG Total CO2 ABG O2 Saturation ABG Base Excess FiO2 Sodium Potassium Chloride Carbon Dioxide BUN Creatinine Estimated GFR BUN/Creatinine Ratio Glucose Lactate 1.4 Calcium Total Bilirubin Procalcitonin 0.07 05/01/18 05/01/18 20:58 21:25 WBC RBC Hgb Hct MCV MCH MCHC RDW Plt Count Neut % (Auto) Lymph % (Auto) [place] % (Auto) Eos % (Auto) Baso % (Auto) Total Counted Seg Neutrophils % Band Neutrophils % Lymphocytes % (Manual) Monocytes % (Manual) Neutrophils # (Manual) RBC Morphology ABG pH 7.48 H ABG pCO2 35.2 ABG pO2 93 ABG HCO3 26 ABG Total CO2 27 ABG O2 Saturation 98 ABG Base Excess 2.0 FiO2 30 Sodium 139 Potassium 4.7 Chloride 98 Carbon Dioxide 29 BUN 17 Creatinine 0.60 L Estimated GFR > 60.0 BUN/Creatinine Ratio 28.3 H Glucose 194 H Lactate Calcium 10.4 H Total Bilirubin 0.6 Procalcitonin Assessment & Plan (1) Acute and chronic respiratory failure with hypoxia: Problem details: Patient has chronic hypoxic respiratory failure. He presents with abrupt onset shortness of breath. He will be treated with steroids, oxygen, nebulizers, and antibiotics Initial Chest Xray was negative for infiltrate, patient now getting CT angio to r/o PE and r/o Pneumonia. Will continue bipap as needed Current visit: Yes Status: Acute (2) COPD with exacerbation: Problem details: Patient has chronic COPD, he has been treated with nebulized tobramycin for several months. He had treatment for MAC which was finally negative in April Patient had levofloxacin/TMP/ sulfa resistant strantomonas, he recently completed a course of antibiotics ( levofloxacin). Recent notes from his PCP indicated that there was some plan for discussion of hospice. I would discuss with Dr. Milligan/ID at [facility] best course of therapy given recent resistant organisms and MAC. Will continue Zosyn for now, obtain blood and sputum cultures Current visit: Yes Status: Acute (3) Hyperlipemia: Problem details: continue statin Current visit: No Status: Chronic (4) Severe sepsis: Problem details: Patient has fever, elevated wBC, tachycardia, tachypnea and probable pulmonary source. Lactate is normal, suspect he has sepsis from pulmonary source Current visit: Yes Status: Acute (5) Anxiety: Problem details: will continue prn ativan Current visit: Yes Status: Chronic (6) Type 2 diabetes mellitus: Problem details: Metformin will be held, patient will be placed on basal bolus insulin. Given high dose steroids he will likely need additional coverage Current visit: Yes Status: Acute Plan: Assessment/Plan Narrative: lovenox for DVT prophylaxis Pepcid for GI prophylaxis HOB at 30 degrees chlorhexidine mouth washes 60 minutes critical care time spent with this patient
[2018-05-01 23:16] LABS: Albumin 4.4 g/dL (3.5-5.0); BUN Creatinine Ratio 28.3 (6-22); Blood Urea Nitrogen 17 mg/dL (9-20); Calcium 10.3 mg/dL (8.4-10.2); Carbon Dioxide 28 mmol/L (22-32); Chloride 99 mmol/L (98-107); D Dimer 228 ng/mL (<230); Estimated Glomerular Filt Rate > 60.0 mL/min (>60); Glucose 197 mg/dL (80-110); HEMOLYSIS < 15 (0-50); Potassium 4.7 mmol/L (3.4-5.1); Sodium 138 mmol/L (137-145)
[2018-05-02] VITALS (18 sets, daily range): BP systolic 99–153; BP diastolic 54–80; PULSE 68–100; RESP 10–69; TEMP 32–36.9; O2SAT 93–99
[2018-05-02] MEDS: LACTATED RINGERS 1,000 ML 100 ML IV ×3 (00:09→21:21)
[2018-05-02] MEDS: IPRATROPIUM 0.5 MG/3 ML NEB INH ×4 (00:14→11:21)
[2018-05-02] MEDS: INSULIN GLARGINE 100 UNIT/ML 3ML PEN 20 UNIT SUBCUT ×2 (00:24→21:19)
[2018-05-02] MEDS: FAMOTIDINE 20 MG/50 ML PIGGYBACK 200 MG IV ×2 (00:25→12:17)
[2018-05-02] MEDS: methylPREDNISolone 125 MG/2 ML VIAL 60 MG IV ×4 (00:28→17:26)
[2018-05-02] MEDS: PIPERACILLIN-TAZO 3.375 GM/50 ML FROZ.PIGGY IV ×3 (00:59→17:25)
[2018-05-02 04:57] LABS: Add Manual Diff / Slide Review NO; Basophils Percent Auto 1.1 % (0-2); Hematocrit 36.1 % (41-53); Hemoglobin 11.7 g/dL (13.5-17.5); Mean Corpuscular HGB Conc 32.3 % (30-36); Mean Corpuscular Hemoglobin 28.4 PG (26-34); Mean Corpuscular Volume 87.9 fL (80-100); Neutrophils Absolute Auto 23200 /uL (3000-5900); Neutrophils Percent Auto 96.9 % (50-75); Platelet Count 298 X10^3/uL (150-400); Red Blood Cell Count 4.11 X10^6/uL (4.5-5.9); Red Cell Distribution Width 13.8 % (11.6-14.8); White Blood Cell Count 23.9 X10^3/uL (4.5-11.0)
[2018-05-02 05:05] LABS: Alanine Aminotransferase 25 IU/L (21-72); Albumin 3.7 g/dL (3.5-5.0); Albumin Globulin Ratio 1.4 (1.0-2.8); Alkaline Phosphatase 55 U/L (38-126); Aspartate Aminotransferase 16 IU/L (17-59); BUN Creatinine Ratio 22.9 (6-22); Bilirubin Total 0.3 mg/dL (0.2-1.3); Blood Urea Nitrogen 16 mg/dL (9-20); Calcium 9.5 mg/dL (8.4-10.2); Carbon Dioxide 30 mmol/L (22-32); Chloride 102 mmol/L (98-107); Estimated Glomerular Filt Rate > 60.0 mL/min (>60); Globulin 2.7 g/dL (1.7-4.1); Glucose 177 mg/dL (80-110); HEMOLYSIS < 15 (0-50); Potassium 4.4 mmol/L (3.4-5.1); Sodium 143 mmol/L (137-145); Total Protein 6.4 g/dL (6.3-8.2)
[2018-05-02 05:20] LABS: Troponin I < 0.012 ng/mL (0.01-0.034)
[2018-05-02 05:22] LABS: B Type Natriuretic Peptide 57.9 (<100)
[2018-05-02] MEDS: ASPIRIN EC 81 MG TABLET PO (08:53)
[2018-05-02] MEDS: ENOXAPARIN 40 MG/0.4 ML SYRINGE SUBCUT (08:54)
[2018-05-02] MEDS: TAMSULOSIN 0.4 MG CAPSULE PO (08:54)
[2018-05-02] MEDS: DOCUSATE 100 MG CAPSULE PO ×2 (08:59→21:16)
[2018-05-02] MEDS: INSULIN ASPART 100 UNIT/ML INSULN PEN SUBCUT ×3 (09:06→21:18)
--- NOTE | 2018-05-02 10:22 | PC.NURSE ---
pt requested to be off bipap at 0745 this and placed on his usual of 3l nc - presently at 96% while at rest in bed, salas cath patent and draining adequate amounts - he denies pain, taking his po rx without difficulty and hoping to advance from clear liquids - ivf continues at 100cc/h- family here earlier - he is alert/oriented x3
[2018-05-02] MEDS: INFLUENZA VACCINE 0.5 ML SYRINGE IM (12:16)
[2018-05-02] MEDS: ALBUTEROL/IPRATROPIUM 3 ML AMPUL INH ×3 (14:54→23:06)
--- NOTE | 2018-05-02 17:21 | PM.PN.1 ---
Subjective Date Patient Seen: 05/02/18 Time Patient Seen: 17:23 Interval history: Patient seen at bedside. Doing better but still has SOB. Was taken off bipap in am and has not wanted to get it back on. Afebrile. Exam Vital Signs (past 8 hours): - 05/02/18 11:21 05/02/18 11:33 05/02/18 12:31 Temperature 97.5 F L Pulse Rate 99 H 95 H 90 Respiratory Rate 26 H 27 H 23 Blood Pressure 153/73 H Pulse Oximetry 96 98 99 05/02/18 14:54 05/02/18 16:10 Temperature 97.5 F L Pulse Rate 88 89 Respiratory Rate 20 24 Blood Pressure 150/80 H Pulse Oximetry 98 98 Fraction of Inspired Oxygen 30 Oxygen Delivery Method Nasal Cannula Oxygen Flow Rate 3.5 Narrative Exam Narrative: Exam Narrative: NAD, AAOx3 Oropharynx : moist mucus membranes Neck: supple Lungs: decreased breath sounds with scattered rhonchi bilaterally. Mild tachypnea at 20 CV: RRR, nl S1S2 Abd: soft/ non tender/ ventral hernia present with belt strap Ext: right pedal edema Neuro: non focal Psych: patient is awake,alert, appropriate, no delusions or hallucinations skin: no lesions noted Objective Labs Result Diagrams: 05/02/18 04:33 05/02/18 04:33 Labs: Laboratory Results - last 24 hr 05/01/18 05/01/18 05/01/18 20:50 20:58 20:58 WBC 25.7 H RBC 4.54 Hgb 13.1 L Hct 39.8 L MCV 87.8 MCH 28.9 MCHC 32.9 RDW 13.6 Plt Count 359 Neut % (Auto) Not Reportable Lymph % (Auto) Not Reportable [place] % (Auto) Not Reportable Eos % (Auto) Not Reportable Baso % (Auto) Not Reportable Neut # (Auto) Total Counted 100 Seg Neutrophils % 82.0 H Band Neutrophils % 10.0 H Lymphocytes % (Manual) 3.0 L Monocytes % (Manual) 5.0 Neutrophils # (Manual) 39193 H RBC Morphology Normal morphology D-Dimer ABG pH ABG pCO2 ABG pO2 ABG HCO3 ABG Total CO2 ABG O2 Saturation ABG Base Excess FiO2 Sodium Potassium Chloride Carbon Dioxide BUN Creatinine Estimated GFR BUN/Creatinine Ratio Glucose Lactate 1.4 Calcium Phosphorus Total Bilirubin AST ALT Alkaline Phosphatase Troponin I B-Natriuretic Peptide Total Protein Albumin Globulin Albumin/Globulin Ratio Procalcitonin 0.07 Nasal Screen MRSA (PCR) 05/01/18 05/01/18 05/01/18 20:58 20:58 20:58 WBC RBC Hgb Hct MCV MCH MCHC RDW Plt Count Neut % (Auto) Lymph % (Auto) [place] % (Auto) Eos % (Auto) Baso % (Auto) Neut # (Auto) Total Counted Seg Neutrophils % Band Neutrophils % Lymphocytes % (Manual) Monocytes % (Manual) Neutrophils # (Manual) RBC Morphology D-Dimer 228 ABG pH ABG pCO2 ABG pO2 ABG HCO3 ABG Total CO2 ABG O2 Saturation ABG Base Excess FiO2 Sodium 139 138 Potassium 4.7 4.7 Chloride 98 99 Carbon Dioxide 29 28 BUN 17 17 Creatinine 0.60 L 0.60 L Estimated GFR > 60.0 > 60.0 BUN/Creatinine Ratio 28.3 H 28.3 H Glucose 194 H 197 H Lactate Calcium 10.4 H 10.3 H Phosphorus 3.0 Total Bilirubin 0.6 AST ALT Alkaline Phosphatase Troponin I B-Natriuretic Peptide Total Protein Albumin 4.4 Globulin Albumin/Globulin Ratio Procalcitonin Nasal Screen MRSA (PCR) 05/01/18 05/01/18 05/02/18 21:25 23:05 04:33 WBC 23.9 H RBC 4.11 L Hgb 11.7 L Hct 36.1 L MCV 87.9 MCH 28.4 MCHC 32.3 RDW 13.8 Plt Count 298 Neut % (Auto) 96.9 H Lymph % (Auto) 1.0 L [place] % (Auto) 1.0 L Eos % (Auto) 0.0 L Baso % (Auto) 1.1 Neut # (Auto) 80175 H Total Counted Seg Neutrophils % Band Neutrophils % Lymphocytes % (Manual) Monocytes % (Manual) Neutrophils # (Manual) RBC Morphology D-Dimer ABG pH 7.48 H ABG pCO2 35.2 ABG pO2 93 ABG HCO3 26 ABG Total CO2 27 ABG O2 Saturation 98 ABG Base Excess 2.0 FiO2 30 Sodium Potassium Chloride Carbon Dioxide BUN Creatinine Estimated GFR BUN/Creatinine Ratio Glucose Lactate Calcium Phosphorus Total Bilirubin AST ALT Alkaline Phosphatase Troponin I B-Natriuretic Peptide 57.9 Total Protein Albumin Globulin Albumin/Globulin Ratio Procalcitonin Nasal Screen MRSA (PCR) Negative for mrsa 05/02/18 04:33 WBC RBC Hgb Hct MCV MCH MCHC RDW Plt Count Neut % (Auto) Lymph % (Auto) [place] % (Auto) Eos % (Auto) Baso % (Auto) Neut # (Auto) Total Counted Seg Neutrophils % Band Neutrophils % Lymphocytes % (Manual) Monocytes % (Manual) Neutrophils # (Manual) RBC Morphology D-Dimer ABG pH ABG pCO2 ABG pO2 ABG HCO3 ABG Total CO2 ABG O2 Saturation ABG Base Excess FiO2 Sodium 143 Potassium 4.4 Chloride 102 Carbon Dioxide 30 BUN 16 Creatinine 0.70 Estimated GFR > 60.0 BUN/Creatinine Ratio 22.9 H Glucose 177 H Lactate Calcium 9.5 Phosphorus Total Bilirubin 0.3 AST 16 L ALT 25 Alkaline Phosphatase 55 Troponin I < 0.012 B-Natriuretic Peptide Total Protein 6.4 Albumin 3.7 Globulin 2.7 Albumin/Globulin Ratio 1.4 Procalcitonin Nasal Screen MRSA (PCR) Assessment & Plan Plan: Assessment/Plan Narrative: 67yo M presented to ED with SOb and hypoxia. Was admitted for Acute hypoxic respiratory failure due to COPD exacerbation and Pneumonia 1. Acute hypoxic respiratory failure - Likely due to COPD and penumonia - CTA PE revealed emphysema and R basilar infiltrate as well as BL small nodules and L apical cavitation-old DAVID? - Continue Zosyn and will add on Bactrim (Sputum cx 2014 showed stenotrophomonus) - Pending Blood and sputum cultures 2. COPD Exacerbation - Continue Nebs, Steroids and Nocturnal Bipap - Patient gets tobramycin every other month, inhaled...will continue as scheduled 3. HLD - Continue Statin 4. Sepsis - Resolved - Continue antibiotics for PNA 5. Anxiety - Ativan PRN 6. DM - Resume Diabetic diet - Continue Insulin FASTHUG
--- NOTE | 2018-05-02 17:26 | P.PN_ITS ---
Subjective Date Patient Seen: 05/02/18 Time Patient Seen: 17:23 Interval history: Patient seen at bedside. Doing better but still has SOB. Was taken off bipap in am and has not wanted to get it back on. Afebrile. Exam Vital Signs (past 8 hours): - 05/02/18 11:21 05/02/18 11:33 05/02/18 12:31 Temperature 97.5 F L Pulse Rate 99 H 95 H 90 Respiratory Rate 26 H 27 H 23 Blood Pressure 153/73 H Pulse Oximetry 96 98 99 05/02/18 14:54 05/02/18 16:10 Temperature 97.5 F L Pulse Rate 88 89 Respiratory Rate 20 24 Blood Pressure 150/80 H Pulse Oximetry 98 98 Fraction of Inspired Oxygen 30 Oxygen Delivery Method Nasal Cannula Oxygen Flow Rate 3.5 Narrative Exam Narrative: Exam Narrative: NAD, AAOx3 Oropharynx : moist mucus membranes Neck: supple Lungs: decreased breath sounds with scattered rhonchi bilaterally. Mild tachypnea at 20 CV: RRR, nl S1S2 Abd: soft/ non tender/ ventral hernia present with belt strap Ext: right pedal edema Neuro: non focal Psych: patient is awake,alert, appropriate, no delusions or hallucinations skin: no lesions noted Objective Labs Result Diagrams: 05/02/18 04:33 05/02/18 04:33 Labs: Laboratory Results - last 24 hr 05/01/18 05/01/18 05/01/18 20:50 20:58 20:58 WBC 25.7 H RBC 4.54 Hgb 13.1 L Hct 39.8 L MCV 87.8 MCH 28.9 MCHC 32.9 RDW 13.6 Plt Count 359 Neut % (Auto) Not Reportable Lymph % (Auto) Not Reportable [place] % (Auto) Not Reportable Eos % (Auto) Not Reportable Baso % (Auto) Not Reportable Neut # (Auto) Total Counted 100 Seg Neutrophils % 82.0 H Band Neutrophils % 10.0 H Lymphocytes % (Manual) 3.0 L Monocytes % (Manual) 5.0 Neutrophils # (Manual) 31496 H RBC Morphology Normal morphology D-Dimer ABG pH ABG pCO2 ABG pO2 ABG HCO3 ABG Total CO2 ABG O2 Saturation ABG Base Excess FiO2 Sodium Potassium Chloride Carbon Dioxide BUN Creatinine Estimated GFR BUN/Creatinine Ratio Glucose Lactate 1.4 Calcium Phosphorus Total Bilirubin AST ALT Alkaline Phosphatase Troponin I B-Natriuretic Peptide Total Protein Albumin Globulin Albumin/Globulin Ratio Procalcitonin 0.07 Nasal Screen MRSA (PCR) 05/01/18 05/01/18 05/01/18 20:58 20:58 20:58 WBC RBC Hgb Hct MCV MCH MCHC RDW Plt Count Neut % (Auto) Lymph % (Auto) [place] % (Auto) Eos % (Auto) Baso % (Auto) Neut # (Auto) Total Counted Seg Neutrophils % Band Neutrophils % Lymphocytes % (Manual) Monocytes % (Manual) Neutrophils # (Manual) RBC Morphology D-Dimer 228 ABG pH ABG pCO2 ABG pO2 ABG HCO3 ABG Total CO2 ABG O2 Saturation ABG Base Excess FiO2 Sodium 139 138 Potassium 4.7 4.7 Chloride 98 99 Carbon Dioxide 29 28 BUN 17 17 Creatinine 0.60 L 0.60 L Estimated GFR > 60.0 > 60.0 BUN/Creatinine Ratio 28.3 H 28.3 H Glucose 194 H 197 H Lactate Calcium 10.4 H 10.3 H Phosphorus 3.0 Total Bilirubin 0.6 AST ALT Alkaline Phosphatase Troponin I B-Natriuretic Peptide Total Protein Albumin 4.4 Globulin Albumin/Globulin Ratio Procalcitonin Nasal Screen MRSA (PCR) 05/01/18 05/01/18 05/02/18 21:25 23:05 04:33 WBC 23.9 H RBC 4.11 L Hgb 11.7 L Hct 36.1 L MCV 87.9 MCH 28.4 MCHC 32.3 RDW 13.8 Plt Count 298 Neut % (Auto) 96.9 H Lymph % (Auto) 1.0 L [place] % (Auto) 1.0 L Eos % (Auto) 0.0 L Baso % (Auto) 1.1 Neut # (Auto) 81456 H Total Counted Seg Neutrophils % Band Neutrophils % Lymphocytes % (Manual) Monocytes % (Manual) Neutrophils # (Manual) RBC Morphology D-Dimer ABG pH 7.48 H ABG pCO2 35.2 ABG pO2 93 ABG HCO3 26 ABG Total CO2 27 ABG O2 Saturation 98 ABG Base Excess 2.0 FiO2 30 Sodium Potassium Chloride Carbon Dioxide BUN Creatinine Estimated GFR BUN/Creatinine Ratio Glucose Lactate Calcium Phosphorus Total Bilirubin AST ALT Alkaline Phosphatase Troponin I B-Natriuretic Peptide 57.9 Total Protein Albumin Globulin Albumin/Globulin Ratio Procalcitonin Nasal Screen MRSA (PCR) Negative for mrsa 05/02/18 04:33 WBC RBC Hgb Hct MCV MCH MCHC RDW Plt Count Neut % (Auto) Lymph % (Auto) [place] % (Auto) Eos % (Auto) Baso % (Auto) Neut # (Auto) Total Counted Seg Neutrophils % Band Neutrophils % Lymphocytes % (Manual) Monocytes % (Manual) Neutrophils # (Manual) RBC Morphology D-Dimer ABG pH ABG pCO2 ABG pO2 ABG HCO3 ABG Total CO2 ABG O2 Saturation ABG Base Excess FiO2 Sodium 143 Potassium 4.4 Chloride 102 Carbon Dioxide 30 BUN 16 Creatinine 0.70 Estimated GFR > 60.0 BUN/Creatinine Ratio 22.9 H Glucose 177 H Lactate Calcium 9.5 Phosphorus Total Bilirubin 0.3 AST 16 L ALT 25 Alkaline Phosphatase 55 Troponin I < 0.012 B-Natriuretic Peptide Total Protein 6.4 Albumin 3.7 Globulin 2.7 Albumin/Globulin Ratio 1.4 Procalcitonin Nasal Screen MRSA (PCR) Assessment & Plan Plan: Assessment/Plan Narrative: 67yo M presented to ED with SOb and hypoxia. Was admitted for Acute hypoxic respiratory failure due to COPD exacerbation and Pneumonia 1. Acute hypoxic respiratory failure - Likely due to COPD and penumonia - CTA PE revealed emphysema and R basilar infiltrate as well as BL small nodules and L apical cavitation-old DAVID? - Continue Zosyn and will add on Bactrim (Sputum cx 2014 showed stenotrophomonus ) - Pending Blood and sputum cultures 2. COPD Exacerbation - Continue Nebs, Steroids and Nocturnal Bipap - Patient gets tobramycin every other month, inhaled...will continue as scheduled 3. HLD - Continue Statin 4. Sepsis - Resolved - Continue antibiotics for PNA 5. Anxiety - Ativan PRN 6. DM - Resume Diabetic diet - Continue Insulin FASTHUG
[2018-05-02] MEDS: TIGECYCLINE 100 MG in SODIUM CHLORIDE 0.9% 100 ML IV (19:39)
[2018-05-02] MEDS: ATORVASTATIN 20 MG TABLET PO (21:16)
[2018-05-02] MEDS: CALCIUM CARBONATE 500 MG TAB PO (23:06)
[2018-05-03] VITALS (13 sets, daily range): BP systolic 133–153; BP diastolic 68–77; PULSE 70–97; RESP 10–28; TEMP 36.3–36.6; O2SAT 97–100
[2018-05-03] MEDS: methylPREDNISolone 125 MG/2 ML VIAL 60 MG IV ×5 (00:31→23:43)
[2018-05-03] MEDS: PIPERACILLIN-TAZO 3.375 GM/50 ML FROZ.PIGGY IV ×4 (00:31→23:43)
--- NOTE | 2018-05-03 02:25 | PC.NURSE ---
Patient not tolerating BIPAP, constant alarm. He has a full reich with noted leak. RT at bedside, placed on NC 3L per home routine. No respiratory distress. Will monitor.
[2018-05-03 05:19] LABS: Add Manual Diff / Slide Review NO; Hematocrit 34.9 % (41-53); Hemoglobin 11.5 g/dL (13.5-17.5); Monocytes Percent Auto 1.3 % (3-14); Neutrophils Absolute Auto 16200 /uL (3000-5900); Neutrophils Percent Auto 96.7 % (50-75); Platelet Count 282 X10^3/uL (150-400); Red Blood Cell Count 3.97 X10^6/uL (4.5-5.9); Red Cell Distribution Width 14.1 % (11.6-14.8); White Blood Cell Count 16.7 X10^3/uL (4.5-11.0)
[2018-05-03 05:21] LABS: Blood Urea Nitrogen 21 mg/dL (9-20); Calcium 9.8 mg/dL (8.4-10.2); Carbon Dioxide 32 mmol/L (22-32); Chloride 105 mmol/L (98-107); Estimated Glomerular Filt Rate > 60.0 mL/min (>60); Glucose 147 mg/dL (80-110); HEMOLYSIS < 15 (0-50); Potassium 4.2 mmol/L (3.4-5.1); Sodium 145 mmol/L (137-145)
[2018-05-03] MEDS: ALBUTEROL/IPRATROPIUM 3 ML AMPUL INH ×5 (05:33→22:35)
[2018-05-03] MEDS: TIGECYCLINE 50 MG in SODIUM CHLORIDE 0.9% 100 ML 200 ML IV ×2 (06:21→19:17)
[2018-05-03] MEDS: INSULIN ASPART 100 UNIT/ML INSULN PEN SUBCUT ×3 (08:31→17:53)
[2018-05-03] MEDS: ENOXAPARIN 40 MG/0.4 ML SYRINGE SUBCUT (08:32)
[2018-05-03] MEDS: ASPIRIN EC 81 MG TABLET PO (08:32)
[2018-05-03] MEDS: DOCUSATE 100 MG CAPSULE PO (08:33)
[2018-05-03] MEDS: TAMSULOSIN 0.4 MG CAPSULE PO (08:34)
[2018-05-03] MEDS: SODIUM CHLORIDE 0.9% FLUSH 10 ML IV ×2 (08:34→21:04)
--- NOTE | 2018-05-03 09:53 | PC.NURSE ---
rounded. Updated on pt condition. Reported pt on baseline home O2 and feeling much better. Clarified need for salas catheter, IVFs. Verbal orders received to dc IVFs, dc salas catheter, transfer pt to floor care status without telemetry. Salas removed [phone]. Pt currently sitting up to edge of bed tending to hygiene with assist x1.
--- NOTE | 2018-05-03 12:35 | PM.PN.1 ---
Subjective Date Patient Seen: 05/03/18 Time Patient Seen: 12:35 Interval history: Patient doing much better today. Breathing is improving. No overnight events. Got off Bipap at 3am. Exam Vital Signs (past 8 hours): - 05/03/18 05:34 05/03/18 07:38 05/03/18 10:48 Temperature 97.6 F Pulse Rate 70 92 H Respiratory Rate 21 28 H Blood Pressure 153/77 H Pulse Oximetry 97 100 97 05/03/18 11:50 Temperature 97.8 F Pulse Rate 87 Respiratory Rate 22 Blood Pressure 133/72 Pulse Oximetry 100 Fraction of Inspired Oxygen 0.30 Oxygen Delivery Method Nasal Cannula Oxygen Flow Rate 3 Narrative Exam Narrative: NAD, AAOx3 Oropharynx : moist mucus membranes Neck: supple Lungs: decreased breath sounds with scattered rhonchi bilaterally. Tachypnea resolved CV: RRR, nl S1S2 Abd: soft/ non tender/ ventral hernia present with belt strap Ext: right pedal edema Neuro: non focal Psych: patient is awake,alert, appropriate, no delusions or hallucinations skin: no lesions noted Objective Labs Result Diagrams: 05/03/18 04:35 05/03/18 04:35 Labs: Laboratory Results - last 24 hr 05/03/18 05/03/18 04:35 04:35 WBC 16.7 H RBC 3.97 L Hgb 11.5 L Hct 34.9 L MCV 88.0 MCH 29.0 MCHC 33.0 RDW 14.1 Plt Count 282 Neut % (Auto) 96.7 H Lymph % (Auto) 2.0 L [place] % (Auto) 1.3 L Eos % (Auto) 0.0 L Baso % (Auto) 0.0 Neut # (Auto) 40947 H Sodium 145 Potassium 4.2 Chloride 105 Carbon Dioxide 32 BUN 21 H Creatinine 0.60 L Estimated GFR > 60.0 BUN/Creatinine Ratio 35.0 H Glucose 147 H Calcium 9.8 Assessment & Plan Plan: Assessment/Plan Narrative: 67yo M presented to ED with SOB and hypoxia. Was admitted for Acute hypoxic respiratory failure due to COPD exacerbation and Pneumonia 1. Acute hypoxic respiratory failure - Likely due to COPD and penumonia - CTA PE revealed emphysema and R basilar infiltrate as well as BL small nodules and L apical cavitation-old DAVID? - Continue Zosyn and switch bactrim to Tigecycline (Sputum cx 2014 showed stenotrophomonus resistant to bactrim and levofloxacin) - Blood and sputum cultures prelim are negative 2. COPD Exacerbation - Continue Nebs, Steroids and Nocturnal Bipap - Patient gets tobramycin every other month, inhaled...will continue as scheduled 3. HLD - Continue Statin 4. Anxiety - Ativan PRN 5. DM - Resume Diabetic diet - Continue Insulin FASTHUG PT on board for ambulation
--- NOTE | 2018-05-03 15:15 | CM.DANOTE ---
Discharge Planning/Care Management DCP: assessment: case received yesterday and discussed in morning Team Rounds. Triage of caseload needs dictated decision to see pt today and continue the assessment process. Met with with pt and family members. Introduced self and role. Pt is a 67 year old male who admitted to care of the hosptitalist team 05/01 2226. He uses home 27/02 at 3 L, [employer] [facility]. Is current with [facility] and will need resume orders at d/c. CAROLYN has faxed clinical to [facility]. P: in process. likely home but will be following. CM Discharge Assessment Start: 05/03/18 15:11 Freq: Status: Active Protocol: Document 05/03/18 15:12 ITV (Rec: 05/03/18 15:15 ITV [id number]) Discharge Planning Assessment Advance Directives? Yes: POLST Advance Directives on File Yes History Provided By Patient Family Member Household Members spouse If patient plan is home with home health Yes: is open to [facility] : Has signed face to face form been Health completed? Whiteboard Updated in Patient Room with Yes name and ext. # of Corporate Analyst Review Status In Process Next Review Type Continued Stay Review
--- NOTE | 2018-05-03 20:04 | PC.NURSE ---
Pt continues to have minimal activity tolerance. Able to sit at bedside and put feet on floor. However feels unable to ambulate more than stand-pivot transfer. Sats remain 98% on 3L, but work of breathing somewhat distressful to patient. Abx infusing.
[2018-05-03] MEDS: INSULIN GLARGINE 100 UNIT/ML 3ML PEN 20 UNIT SUBCUT (21:05)
[2018-05-03] MEDS: ATORVASTATIN 20 MG TABLET PO (21:05)
[2018-05-04] VITALS (15 sets, daily range): BP systolic 147–175; BP diastolic 65–89; PULSE 72–96; RESP 16–25; TEMP 36.1–36.4; O2SAT 91–99
--- NOTE | 2018-05-04 03:48 | PC.NURSE ---
Report given to LAVERNE Kelly in acute care. Pt stable and ready for transport to room 213.
--- NOTE | 2018-05-04 04:59 | PC.NURSE ---
Received phone report from ICU . Patient brought up to room 213 via bed. Alert and oriented. Requested water, it was given. IVF placed into pump, fluids going TKO at this time. Call light given to patient with education on use. Bruise noted to left upper inner arm. Patient is in own clothes.
[2018-05-04] MEDS: methylPREDNISolone 125 MG/2 ML VIAL 60 MG IV ×3 (06:15→18:40)
[2018-05-04] MEDS: ALBUTEROL/IPRATROPIUM 3 ML AMPUL INH ×4 (06:15→17:53)
[2018-05-04 06:18] LABS: Add Manual Diff / Slide Review NO; Hematocrit 37.6 % (41-53); Hemoglobin 12.4 g/dL (13.5-17.5); Lymphocytes Percent Auto 1.8 % (25-40); Mean Corpuscular HGB Conc 32.8 % (30-36); Mean Corpuscular Volume 88.3 fL (80-100); Monocytes Percent Auto 2.5 % (3-14); Neutrophils Absolute Auto 13500 /uL (3000-5900); Neutrophils Percent Auto 95.7 % (50-75); Platelet Count 339 X10^3/uL (150-400); Red Blood Cell Count 4.26 X10^6/uL (4.5-5.9); Red Cell Distribution Width 13.9 % (11.6-14.8); White Blood Cell Count 14.1 X10^3/uL (4.5-11.0)
[2018-05-04 06:21] LABS: BUN Creatinine Ratio 46.7 (6-22); Blood Urea Nitrogen 28 mg/dL (9-20); Calcium 9.7 mg/dL (8.4-10.2); Carbon Dioxide 34 mmol/L (22-32); Chloride 103 mmol/L (98-107); Estimated Glomerular Filt Rate > 60.0 mL/min (>60); Glucose 125 mg/dL (80-110); HEMOLYSIS < 15 (0-50); Sodium 145 mmol/L (137-145)
[2018-05-04 06:29] LABS: Potassium 5.1 mmol/L (3.4-5.1)
[2018-05-04] MEDS: TIGECYCLINE 50 MG in SODIUM CHLORIDE 0.9% 100 ML 200 ML IV ×2 (08:58→20:14)
[2018-05-04] MEDS: DOCUSATE 100 MG CAPSULE PO (08:59)
[2018-05-04] MEDS: ASPIRIN EC 81 MG TABLET PO (08:59)
[2018-05-04] MEDS: ENOXAPARIN 40 MG/0.4 ML SYRINGE SUBCUT (09:00)
[2018-05-04] MEDS: TAMSULOSIN 0.4 MG CAPSULE PO (09:01)
[2018-05-04] MEDS: SODIUM CHLORIDE 0.9% FLUSH 10 ML IV ×3 (09:01→18:41)
[2018-05-04] MEDS: PIPERACILLIN-TAZO 3.375 GM/50 ML FROZ.PIGGY IV ×2 (09:36→16:47)
--- NOTE | 2018-05-04 13:30 | PC.NURSE ---
Pt taken off droplet precautions as not needed for aspigillus bacterium. Pt alert and oriented. Short of breath when talking and with any exertions. Receiving treatments from RT. Pt able to articulate when he wants O2 at 3 or 4L - has it set at 4L at home usually. IV saline locked.
--- NOTE | 2018-05-04 14:34 | P.PN_ITS ---
Subjective Date Patient Seen: 05/04/18 Time Patient Seen: 14:29 Interval history: Patient seen at bedside. Doing ok but still feels short of breath when he gets up to walk around. No overnight events. Exam Vital Signs (past 8 hours): - 05/04/18 06:35 05/04/18 08:20 05/04/18 08:42 Temperature 97.6 F Pulse Rate 96 H 81 Respiratory Rate 22 20 Blood Pressure 152/82 H Pulse Oximetry 98 91 97 05/04/18 08:51 05/04/18 10:21 05/04/18 12:50 Temperature 97.6 F Pulse Rate 80 77 Respiratory Rate 24 20 Blood Pressure 169/78 H Pulse Oximetry 97 98 99 Fraction of Inspired Oxygen 0.30 Oxygen Delivery Method Nasal Cannula Oxygen Flow Rate 3 Narrative Exam Narrative: General: NAD, AAOx3 Oropharynx : moist mucus membranes Neck: supple Lungs: decreased breath sounds with scattered rhonchi bilaterally. CV: RRR, nl S1S2 Abd: soft/ non tender/ ventral hernia present with belt strap Ext: right pedal edema Neuro: non focal Psych: patient is awake,alert, appropriate, no delusions or hallucinations skin: no lesions noted Objective Labs Result Diagrams: 05/04/18 05:53 05/04/18 05:53 Labs: Laboratory Results - last 24 hr 05/04/18 05/04/18 05:53 05:53 WBC 14.1 H RBC 4.26 L Hgb 12.4 L Hct 37.6 L MCV 88.3 MCH 29.0 MCHC 32.8 RDW 13.9 Plt Count 339 Neut % (Auto) 95.7 H Lymph % (Auto) 1.8 L [place] % (Auto) 2.5 L Eos % (Auto) 0.0 L Baso % (Auto) 0.0 Neut # (Auto) 47751 H Sodium 145 Potassium 5.1 Chloride 103 Carbon Dioxide 34 H BUN 28 H Creatinine 0.60 L Estimated GFR > 60.0 BUN/Creatinine Ratio 46.7 H Glucose 125 H Calcium 9.7 Assessment & Plan Plan: Assessment/Plan Narrative: 67yo M presented to ED with SOB and hypoxia. Was admitted for Acute hypoxic respiratory failure due to COPD exacerbation and Pneumonia 1. Acute hypoxic respiratory failure - Likely due to COPD and penumonia - CTA PE revealed emphysema and R basilar infiltrate as well as BL small nodules and L apical cavitation-old DAVID? - Continue Zosyn and Tigecycline (Sputum cx 2014 showed stenotrophomonus resistant to bactrim and levofloxacin) - Blood and sputum cultures prelim are negative but one month ago sputum is positive for Aspargillus Fumigans - Will get repeat sputum culture/fungal/AFB/stain - If no final growth tomorrow, will switch to PO minocycline 100mg for 10 more days of therapy 2. COPD Exacerbation - Continue Nebs, Steroids and Nocturnal Bipap - Patient gets tobramycin every other month, inhaled...will continue as scheduled 3. HLD - Continue Statin 4. Anxiety - Ativan PRN 5. DM - Resume Diabetic diet - Continue Insulin FASTHUG PT on board for ambulation
--- NOTE | 2018-05-04 16:25 | PT.IIE ---
Current Diagnoses Sepsis, unspecified organism (05/01/18) Type 2 diabetes mellitus without complications (05/01/18) Hyperlipidemia, unspecified (05/01/18) Anxiety disorder, unspecified (05/01/18) Chronic obstructive pulmonary disease with (acute) exacerbation (05/01/18) Acute and chronic respiratory failure with hypoxia (05/01/18) Severe sepsis without septic shock (05/01/18) Surgical History (Last Reviewed 05/01/18 @ 22:50 by Yelitza Osei MD) H/O cardiac catheterization (Resolved 2010) S/P small bowel resection (Resolved 03/2015) Hx of hernia repair (Resolved 2008) S/P colon resection (Resolved 2010) Hx of cataract surgery (Resolved 2014) Medical History (Last Reviewed 05/01/18 @ 22:49 by Yelitza Osei MD) Anxiety (Chronic Unknown) Peripheral vascular disease (Chronic Unknown) Hx of small bowel obstruction (Resolved 03/2015) Hyperlipemia (Chronic Unknown) Chronic respiratory failure with hypoxia (Chronic Unknown) Nontuberculous mycobacterial infection (Chronic 2014) Coronary artery disease (Chronic Unknown) History of colon cancer (Resolved ~2010) BPH (benign prostatic hyperplasia) (Chronic Unknown) COPD (chronic obstructive pulmonary disease) (Chronic) Dyspnea (Chronic) COPD (chronic obstructive pulmonary disease) (Chronic Unknown) Diabetes (Chronic Unknown) COPD (chronic obstructive pulmonary disease) (Inactive) Dependent edema (Inactive) Physical Therapy Inpatient Evaluation/Re-Eval M1 PT/OT-IP Prior Functional Status Start: 05/04/18 17:02 Freq: NEEDED Status: Active Protocol: Document 05/04/18 16:25 AB (Rec: 05/04/18 17:26 AB [id number]) Medical Review Prior Functional Status Medical History Reviewed Yes Communication able to make needs known Mobility and Gait pt stated that he is modified independent with all mobilities and ambulation without AD but occasionally uses a 4WW. stated that he can waslk ~ 30 ft at a time but has been decrearsing in mobility due to SOB. Prior Functional Level (Other details) pt uses O2 at home at 3L/min Social History Household Members spouse Living Arrangements House Number of Floors (Floors) One Floor Number of Stairs To Enter/Railing? wilson a ramp to enter Home Environment Standard Height Toilet High Toilet Walk in Shower Tub/Shower Ramp Home Equipment Shower Seat without Backrest Hand Held Shower Grab Bars In Shower Employment Status Retired Additional Social History Comment stated that his spouse will be limited with assisting him as his spouse just had a stroke last march. stated that their grandson lives with them but goes to school. M2 PT-IP Current Condition Start: 05/04/18 17:02 Freq: NEEDED Status: Active Protocol: Document 05/04/18 16:25 AB (Rec: 05/04/18 17:26 AB [id number]) Physical Therapy Current Condition Current Condition Evaluation Date 05/04/18 Treatment Diagnosis respiratory failure with hypoxia; COPD exacerbation; acute PNA Onset Date 05/01/18 Precautions Other Precautions O2 sat; [place] M3 PT-IP Subjective Start: 05/04/18 17:02 Freq: NEEDED Status: Active Protocol: Document 05/04/18 16:25 AB (Rec: 05/04/18 17:26 AB [id number]) Subjective Physical Therapy Visit Type Type Initial Evaluation Visit Start Time 16:25 Visit Stop Time 16:40 Total Visit Minutes 15 Number of KNOCK UP ASSEMBLER Visits 0 Physical Therapy Visit Comments Patient Comments pt agreed to do some ambulation Therapy Pain Assessment Pain Present Pain Present Denied Pain M4 PT-IP Mobility and Gait Start: 05/04/18 17:02 Freq: NEEDED Status: Active Protocol: Document 05/04/18 16:25 AB (Rec: 05/04/18 17:26 AB [id number]) PT-Bed Mobility Assessment Supine to Sit Supine to Sit Independent Sit to Supine Sit to Supine Independent PT-Transfer Assessment Sit to and From Stand Sit to and from Stand Standby Assistance Gait Assessment Gait Gait Assistance Required: Standby Assistance Distance (Feet) 25 Able to Maintain Weight Bearing Status No During Gait Assistive Devices Assistive Device Gait Belt Gait Deviations General Gait Pattern Decreased Stride Length Decreased Feet Clearance Factors Limiting Gait Function Factors Limiting Gait Function Decreased Activity Tolerance Decreased Strength Comments Gait Comments O2 sat at 3L/min 99% prior to ambulation. pt ambulated in room without AD SBA ~ 25 ft. (+) SOB after ambulation. O2 sat at 92% and increased to 94 % in ~ 5 sec. pt refused further activity due to decrease activity tolerance. PT-Balance Assessment Sitting Balance and Reactions Static Sitting Balance Ability Good Dynamic Sitting Balance Ability Good Standing Balance and Reactions Static Standing Balance Ability Good Dynamic Standing Balance Ability Fair Device Used without AD M5 PT-IP Objective Assessments Start: 05/04/18 17:02 Freq: NEEDED Status: Active Protocol: Document 05/04/18 16:25 AB (Rec: 05/04/18 17:26 AB [id number]) Orientation Orientation/Cognition Level of Alertness Alert Orientation Name Age Birthday Month Date Year Day of Week Place Situation Safety Awareness Understands Safety Issues Gross Range of Motion Lower Extremity ROM Assessment Within Functional Limits Strength Lower Extremity Strength Assessment Within Functional Limits Muscle Tone Muscle Tone WNL Yes M6 PT-IP Treatment Start: 05/04/18 17:02 Freq: NEEDED Status: Active Protocol: Document 05/04/18 16:25 AB (Rec: 05/04/18 17:26 AB [id number]) Physical Therapy Treatment Education Education Provided Safety M7 PT-IP Assessment and Plan Start: 05/04/18 17:02 Freq: NEEDED Status: Active Protocol: Document 05/04/18 16:25 AB (Rec: 05/04/18 17:26 AB [id number]) PT Summary Assessment and Plan Potential Rehabilitation Potential Fair Status of Condition at Evaluation Evolving Summary Impairments Transfers Gait Activity Tolerance Assessment Summary pt requires SBA with mobility but presents with decrease activity tolerance and only tolerated ~ 25 ft of ambulation. (+) SOB afterwards. pt will require homehealth PT for d/c home and may also benefit from cardiopulmonary rehab. Goals Bed Mobility Goal Independent Transfer Goal Independent Gait Goal Independent Gait Distance 75 Days to Meet Goals 5 Frequency of Treatment Frequency Of Treatment Twice a Day Treatment Plan Physical Therapy Treatment Plan Transfer Training Gait Training Therapeutic Exercise Discharge Planning Neuromuscular Re-ed Recommendations To Nursing Amount of Assist Needed Standby Assistance Discharge Recommendations PT Discharge Recommendations Home with Assistance Home Health Other Discharge Recommendations cardiopulmonary rehab
[2018-05-04] MEDS: INSULIN ASPART 100 UNIT/ML INSULN PEN SUBCUT (17:07)
[2018-05-04] MEDS: ATORVASTATIN 20 MG TABLET PO (20:13)
[2018-05-04] MEDS: CALCIUM CARBONATE 500 MG TAB PO (20:13)
[2018-05-04] MEDS: INSULIN GLARGINE 100 UNIT/ML 3ML PEN 20 UNIT SUBCUT (20:22)
[2018-05-04] MEDS: LACTATED RINGERS 1,000 ML 100 ML IV (22:27)
[2018-05-05] VITALS (16 sets, daily range): BP systolic 144–162; BP diastolic 66–85; PULSE 70–94; RESP 18–20; TEMP 35.9–36.4; O2SAT 86–100
--- NOTE | 2018-05-05 | DI.RAD.S_ITS ---
PROCEDURE: XR CHEST 2V INDICATIONS: sob TECHNIQUE: 2 views of the chest were acquired. COMPARISON: [facility], CT, CT ANGIO CHEST PE PROTOCOL, 05/01/2018, 22:45. [facility], CR, XR CHEST 1V, 05/01/2018, 20:45. FINDINGS: Surgical changes and devices: None. Lungs and pleura: No pleural effusions or pneumothorax. Bilateral upper lobe architectural distortion and scarring as before. Lungs appear hyperinflated. Chronic bibasilar scarring/atelectasis. No definite new focal consolidation is seen. Prominent pericardial fat pad is seen Mediastinum: Mediastinal contours are normal. Heart size is normal. Bones and chest wall: No suspicious bony abnormalities. Soft tissues appear unremarkable. IMPRESSION: No acute consolidation. Diffuse scarring and interstitial changes, with hyperinflated appearance in keeping with chronic obstructive physiology. Dictated by: Bird Santana M.D. on 05/05/2018 at 16:07 Approved by: Bird Santana M.D. on 05/05/2018 at 16:11
[2018-05-05] MEDS: PIPERACILLIN-TAZO 3.375 GM/50 ML FROZ.PIGGY IV ×2 (00:05→09:20)
[2018-05-05] MEDS: methylPREDNISolone 125 MG/2 ML VIAL 60 MG IV ×5 (00:05→23:38)
[2018-05-05] MEDS: ALBUTEROL/IPRATROPIUM 3 ML AMPUL INH ×4 (06:10→20:24)
[2018-05-05 06:19] LABS: Add Manual Diff / Slide Review NO; Basophils Percent Auto 0.3 % (0-2); Hematocrit 40.1 % (41-53); Hemoglobin 13.3 g/dL (13.5-17.5); Lymphocytes Percent Auto 2.5 % (25-40); Mean Corpuscular HGB Conc 33.2 % (30-36); Mean Corpuscular Hemoglobin 29.5 PG (26-34); Mean Corpuscular Volume 88.8 fL (80-100); Monocytes Percent Auto 2.8 % (3-14); Neutrophils Absolute Auto 10300 /uL (3000-5900); Neutrophils Percent Auto 94.4 % (50-75); Platelet Count 354 X10^3/uL (150-400); Red Blood Cell Count 4.52 X10^6/uL (4.5-5.9); Red Cell Distribution Width 13.9 % (11.6-14.8); White Blood Cell Count 10.9 X10^3/uL (4.5-11.0)
[2018-05-05 06:34] LABS: BUN Creatinine Ratio 43.3 (6-22); Blood Urea Nitrogen 26 mg/dL (9-20); Calcium 9.6 mg/dL (8.4-10.2); Carbon Dioxide 35 mmol/L (22-32); Chloride 100 mmol/L (98-107); Estimated Glomerular Filt Rate > 60.0 mL/min (>60); Glucose 131 mg/dL (80-110); HEMOLYSIS < 15 (0-50); Potassium 4.6 mmol/L (3.4-5.1); Sodium 141 mmol/L (137-145)
[2018-05-05] MEDS: TIGECYCLINE 50 MG in SODIUM CHLORIDE 0.9% 100 ML 200 ML IV (07:51)
[2018-05-05] MEDS: ALBUTEROL 2.5 MG/3 ML NEB (ADULT) INH (09:17)
[2018-05-05] MEDS: ENOXAPARIN 40 MG/0.4 ML SYRINGE SUBCUT (09:18)
[2018-05-05] MEDS: DOCUSATE 100 MG CAPSULE PO (09:18)
[2018-05-05] MEDS: SODIUM CHLORIDE 0.9% FLUSH 10 ML IV ×4 (09:19→22:18)
[2018-05-05] MEDS: TAMSULOSIN 0.4 MG CAPSULE PO (09:19)
[2018-05-05] MEDS: ASPIRIN EC 81 MG TABLET PO (09:19)
[2018-05-05] MEDS: INSULIN ASPART 100 UNIT/ML INSULN PEN SUBCUT ×3 (12:22→21:32)
--- NOTE | 2018-05-05 14:14 | P.PN_ITS ---
Subjective Date Patient Seen: 05/05/18 Time Patient Seen: 14:07 Interval history: Patient seen at bedside. No overnight events. Still feeling short of breath and not up to his baseline. No fevers. Exam Vital Signs (past 8 hours): - 05/05/18 06:11 05/05/18 07:20 05/05/18 07:50 Temperature 97.4 F L Pulse Rate 86 74 Respiratory Rate 20 20 Blood Pressure 146/81 H Pulse Oximetry 97 99 97 05/05/18 07:51 05/05/18 09:20 05/05/18 12:04 Temperature Pulse Rate 83 77 Respiratory Rate 20 18 Blood Pressure Pulse Oximetry 95 96 96 Fraction of Inspired Oxygen 0.30 Oxygen Delivery Method Nasal Cannula Oxygen Flow Rate 3 Narrative Exam Narrative: General: NAD, AAOx3 Oropharynx : moist mucus membranes Neck: supple Lungs: decreased breath sounds with scattered rhonchi bilaterally. CV: RRR, nl S1S2 Abd: soft/ non tender/ ventral hernia present with belt strap Ext: right pedal edema Neuro: non focal Psych: patient is awake,alert, appropriate, no delusions or hallucinations skin: no lesions noted Objective Labs Result Diagrams: 05/05/18 05:45 05/05/18 05:45 Labs: Laboratory Results - last 24 hr 05/05/18 05/05/18 05:45 05:45 WBC 10.9 RBC 4.52 Hgb 13.3 L Hct 40.1 L MCV 88.8 MCH 29.5 MCHC 33.2 RDW 13.9 Plt Count 354 Neut % (Auto) 94.4 H Lymph % (Auto) 2.5 L [place] % (Auto) 2.8 L Eos % (Auto) 0.0 L Baso % (Auto) 0.3 Neut # (Auto) 75543 H Sodium 141 Potassium 4.6 Chloride 100 Carbon Dioxide 35 H BUN 26 H Creatinine 0.60 L Estimated GFR > 60.0 BUN/Creatinine Ratio 43.3 H Glucose 131 H Calcium 9.6 Assessment & Plan Plan: Assessment/Plan Narrative: 67yo M presented to ED with SOB and hypoxia. Was admitted for Acute hypoxic respiratory failure due to COPD exacerbation and Pneumonia. 1. Acute hypoxic respiratory failure - Likely due to COPD and penumonia - CTA PE revealed emphysema and R basilar infiltrate as well as BL small nodules and L apical cavitation-old DAVID? - Sputum cultures came back positive for Strep pneumo, blood culture prelim still negative - Switch patient to Cephazolin 2g IV Q8H until sensitivities are back (Day 4 today) - Sputum cx one month was positive for Aspargillus Fumigans...Spoke with Dr. Milligan-would like repeat sputum cx which is pending - Pending repeat sputum culture/fungal/AFB/stain 2. COPD Exacerbation - Continue Nebs, Steroids and Nocturnal Bipap - Patient gets tobramycin every other month, inhaled...will continue as scheduled (Due to get one Dose May 07-will give in the hospital) - Encourage patient to do Chest PT 3. HLD - Continue Statin 4. Anxiety - Ativan PRN 5. DM - Continue Diabetic diet - Continue Insulin PT on board for ambulation
[2018-05-05] MEDS: CEFAZOLIN 2 GM/100 ML FROZ.PIGGY IV ×2 (14:39→22:17)
--- NOTE | 2018-05-05 15:10 | PT.IPTN ---
Current Diagnoses Sepsis, unspecified organism (05/01/18) Type 2 diabetes mellitus without complications (05/01/18) Hyperlipidemia, unspecified (05/01/18) Anxiety disorder, unspecified (05/01/18) Pneumonia, unspecified organism (05/01/18) Chronic obstructive pulmonary disease with (acute) exacerbation (05/01/18) Acute and chronic respiratory failure with hypoxia (05/01/18) Severe sepsis without septic shock (05/01/18) Physical Therapy Treatment Note M2 PT-IP Current Condition Start: 05/04/18 17:02 Freq: NEEDED Status: Active Protocol: Document 05/05/18 15:10 RCC (Rec: 05/05/18 15:14 RCC [id number]) Physical Therapy Current Condition Current Condition Evaluation Date 05/04/18 Treatment Diagnosis respiratory failure with hypoxia; COPD exacerbation; acute PNA Onset Date 05/01/18 Precautions Other Precautions O2 sat; [place] M3 PT-IP Subjective Start: 05/04/18 17:02 Freq: NEEDED Status: Active Protocol: Document 05/05/18 15:10 RCC (Rec: 05/05/18 15:14 RCC [id number]) Subjective Physical Therapy Visit Type Type Treatment Note Visit Start Time 15:00 Visit Stop Time 15:10 Total Visit Minutes 10 Notes pt refused PT multiple times this a.m. due to SOB, received breathing tx from RT earlier this date. Number of CLAMMER Visits 0 Physical Therapy Visit Comments Patient Comments pt willing to try to participate. M4 PT-IP Mobility and Gait Start: 05/04/18 17:02 Freq: NEEDED Status: Active Protocol: Document 05/05/18 15:10 RCC (Rec: 05/05/18 15:14 RCC [id number]) PT-Bed Mobility Assessment Supine to Sit Supine to Sit Independent Head of Bed Elevated Sit to Supine Sit to Supine Independent Head of Bed Elevated Scooting Scooting to Edge of Bed Independent Scooting Up and Down in Bed Independent PT-Transfer Assessment Sit to and From Stand Sit to and from Stand Standby Assistance Equipment Transfer Assistive Device Gait Belt Transfers Transfer Destination Bed Transfer Technique Stand Step Pivot Transfer Ability Level of Assist Standby Assistance Gait Assessment Gait Gait Assistance Required: Standby Assistance Distance (Feet) 20 Assistive Devices Assistive Device Gait Belt Factors Limiting Gait Function Factors Limiting Gait Function Decreased Activity Tolerance Decreased Strength Comments Gait Comments pt marched in room to the equivalent of ~20 ft without an AD, reported fatigue and requested to sit. Pt on 4-L O2 , O2 saturation 96% after marching/gait, FL 104 bpm, RR 30 bpm. M5 PT-IP Objective Assessments Start: 05/04/18 17:02 Freq: NEEDED Status: Active Protocol: Document 05/04/18 16:25 AB (Rec: 05/04/18 17:26 AB [id number]) Orientation Orientation/Cognition Level of Alertness Alert Orientation Name Age Birthday Month Date Year Day of Week Place Situation Safety Awareness Understands Safety Issues Gross Range of Motion Lower Extremity ROM Assessment Within Functional Limits Strength Lower Extremity Strength Assessment Within Functional Limits Muscle Tone Muscle Tone WNL Yes M6 PT-IP Treatment Start: 05/04/18 17:02 Freq: NEEDED Status: Active Protocol: Document 05/04/18 16:25 AB (Rec: 05/04/18 17:26 AB [id number]) Physical Therapy Treatment Education Education Provided Safety M7 PT-IP Assessment and Plan Start: 05/04/18 17:02 Freq: NEEDED Status: Active Protocol: Document 05/05/18 15:10 RCC (Rec: 05/05/18 15:14 RCC [id number]) PT Summary Assessment and Plan Summary Progress Towards Goals Slow Progress due to Medical Issues Assessment Summary Pt with increased SOB and RR after marching in place in room, fatigued rapidly and sat down. He requires SBA for sit to stand and marching in place without UE support. Pt likely to greatly benefit from cardiopulmonary rehab when medically stable/ready. Goals Bed Mobility Goal Independent Transfer Goal Independent Gait Goal Independent Gait Distance 75 Days to Meet Goals 5 Frequency of Treatment Frequency Of Treatment Twice a Day Treatment Plan Other Recommendations and Next Treatment gait training with monitor of Focus O2 and FL. Recommendations To Nursing Amount of Assist Needed Standby Assistance Discharge Recommendations PT Discharge Recommendations Home with Assistance Home Health Other Discharge Recommendations cardiopulmonary rehab
[2018-05-05] MEDS: CALCIUM CARBONATE 500 MG TAB PO ×3 (18:36→21:34)
[2018-05-05] MEDS: INSULIN GLARGINE 100 UNIT/ML 3ML PEN 20 UNIT SUBCUT (21:30)
[2018-05-05] MEDS: ATORVASTATIN 20 MG TABLET PO (21:34)
--- NOTE | 2018-05-05 22:49 | PC.NURSE ---
Pt's iv site has per hospital protocol. This was explained to pt who is in agreement to allow a new start. Pt has significant bruising to LUE. 18 gauge catheter previously placed intact to right wrist. Flushes easily and is without edema or discomfort. Attempts x 2 to restart iv by this senior writer unsuccessful. Plan to leave current iv in place at this time. Dressing changed to site and secured. IV antibiotic infusing as ordered without difficulty. Pt reports feeling slightly better this evening shift. 02 3.5 per NC. Dyspnea at rest. Prefers sitting up in bed to enhance respiratory effort. Accessory muscles to breathe.
[2018-05-06] VITALS (11 sets, daily range): BP systolic 146–164; BP diastolic 72–84; PULSE 65–88; RESP 18–21; TEMP 36–36.7; O2SAT 96–100
[2018-05-06] MEDS: methylPREDNISolone 125 MG/2 ML VIAL 60 MG IV ×2 (05:39→11:54)
--- NOTE | 2018-05-06 05:45 | PC.NURSE ---
shift note AOx3. Pleasant, cooperative and in good spirits. 97- 99% on 3L (as preference per use at home). Cough decreased in this shift compared to previous night. Pt has numerous bruises on arms from venipuncture. Pt wearing brace on abdomen for a previous abdominal hernia. Call light in reach.
[2018-05-06 06:08] LABS: Hematocrit 41.9 % (41-53); Hemoglobin 13.9 g/dL (13.5-17.5); Mean Corpuscular HGB Conc 33.1 % (30-36); Mean Corpuscular Hemoglobin 29.3 PG (26-34); Mean Corpuscular Volume 88.6 fL (80-100); Platelet Count 397 X10^3/uL (150-400); Red Blood Cell Count 4.73 X10^6/uL (4.5-5.9); White Blood Cell Count 9.5 X10^3/uL (4.5-11.0)
[2018-05-06 06:12] LABS: Blood Urea Nitrogen 24 mg/dL (9-20); Calcium 9.7 mg/dL (8.4-10.2); Chloride 98 mmol/L (98-107); Estimated Glomerular Filt Rate > 60.0 mL/min (>60); Glucose 124 mg/dL (80-110); HEMOLYSIS < 15 (0-50); Sodium 144 mmol/L (137-145)
[2018-05-06 06:16] LABS: Add Manual Diff / Slide Review YES
[2018-05-06 06:18] LABS: Carbon Dioxide 39 mmol/L (22-32)
[2018-05-06 06:46] LABS: Potassium 5.8 mmol/L (3.4-5.1)
[2018-05-06 06:54] LABS: RBC Morphology Normal Morphology
[2018-05-06] MEDS: ALBUTEROL/IPRATROPIUM 3 ML AMPUL INH ×4 (07:16→19:26)
[2018-05-06] MEDS: ENOXAPARIN 40 MG/0.4 ML SYRINGE SUBCUT (08:32)
[2018-05-06] MEDS: TAMSULOSIN 0.4 MG CAPSULE PO (08:33)
[2018-05-06] MEDS: SODIUM CHLORIDE 0.9% FLUSH 10 ML IV (08:33)
[2018-05-06] MEDS: ASPIRIN EC 81 MG TABLET PO (08:33)
--- NOTE | 2018-05-06 10:49 | PT.IPTN ---
Current Diagnoses Sepsis, unspecified organism (05/01/18) Type 2 diabetes mellitus without complications (05/01/18) Hyperlipidemia, unspecified (05/01/18) Anxiety disorder, unspecified (05/01/18) Pneumonia, unspecified organism (05/01/18) Chronic obstructive pulmonary disease with (acute) exacerbation (05/01/18) Acute and chronic respiratory failure with hypoxia (05/01/18) Severe sepsis without septic shock (05/01/18) Physical Therapy Treatment Note M2 PT-IP Current Condition Start: 05/04/18 17:02 Freq: NEEDED Status: Active Protocol: Document 05/05/18 15:10 RCC (Rec: 05/05/18 15:14 RCC [id number]) Physical Therapy Current Condition Current Condition Evaluation Date 05/04/18 Treatment Diagnosis respiratory failure with hypoxia; COPD exacerbation; acute PNA Onset Date 05/01/18 Precautions Other Precautions O2 sat; [place] M3 PT-IP Subjective Start: 05/04/18 17:02 Freq: NEEDED Status: Active Protocol: Document 05/06/18 10:05 CLB (Rec: 05/06/18 10:49 CLB [id number]) Subjective Physical Therapy Visit Type Type Treatment Note Visit Start Time 10:05 Visit Stop Time 10:20 Number of ADMISSIONS ASSISTANT Visits 15 Physical Therapy Visit Comments Patient Comments Pt refused ambulation in room but agreed to march in place at bed side. M4 PT-IP Mobility and Gait Start: 05/04/18 17:02 Freq: NEEDED Status: Active Protocol: Document 05/06/18 10:05 CLB (Rec: 05/06/18 10:49 CLB [id number]) PT-Bed Mobility Assessment Supine to Sit Supine to Sit Independent Head of Bed Elevated Sit to Supine Sit to Supine Independent Head of Bed Elevated Scooting Scooting to Edge of Bed Independent Scooting Up and Down in Bed Independent PT-Transfer Assessment Sit to and From Stand Sit to and from Stand Standby Assistance Equipment Transfer Assistive Device Gait Belt Transfers Transfer Destination Bed Transfer Technique Stand Step Pivot Transfer Ability Level of Assist Standby Assistance Gait Assessment Gait Gait Assistance Required: Standby Assistance Distance (Feet) 20 Assistive Devices Assistive Device Gait Belt Factors Limiting Gait Function Factors Limiting Gait Function Decreased Activity Tolerance Decreased Strength Comments Gait Comments pt marched in place at bed side. Pt on 3L O2 and after marching pt O2 sats decreased to 94% and IA 101 with recovery to 97% after several minutes of deep breathing. Pt stated increase in anxiety when O2 gets below 91%. M5 PT-IP Objective Assessments Start: 05/04/18 17:02 Freq: NEEDED Status: Active Protocol: Document 05/04/18 16:25 AB (Rec: 05/04/18 17:26 AB [id number]) Orientation Orientation/Cognition Level of Alertness Alert Orientation Name Age Birthday Month Date Year Day of Week Place Situation Safety Awareness Understands Safety Issues Gross Range of Motion Lower Extremity ROM Assessment Within Functional Limits Strength Lower Extremity Strength Assessment Within Functional Limits Muscle Tone Muscle Tone WNL Yes M6 PT-IP Treatment Start: 05/04/18 17:02 Freq: NEEDED Status: Active Protocol: Document 05/06/18 10:05 CLB (Rec: 05/06/18 10:49 CLB [id number]) Physical Therapy Treatment Other Treatments Other Treatment Performed Standing M7 PT-IP Assessment and Plan Start: 05/04/18 17:02 Freq: NEEDED Status: Active Protocol: Document 05/06/18 10:05 CLB (Rec: 05/06/18 10:49 CLB [id number]) PT Summary Assessment and Plan Summary Progress Towards Goals Slow Progress due to Medical Issues Assessment Summary Pt continues to have increased SOB and HR with marching in place. Pt has increase in anxiety and respectfully refused to leave bedside for gait. Goals Bed Mobility Goal Independent Transfer Goal Independent Gait Goal Independent Gait Distance 75 Days to Meet Goals 5 Frequency of Treatment Frequency Of Treatment Twice a Day Treatment Plan Other Recommendations and Next Treatment gait training with monitor of Focus O2 and IA. Recommendations To Nursing Amount of Assist Needed Standby Assistance Discharge Recommendations PT Discharge Recommendations Home with Assistance Home Health Other Discharge Recommendations cardiopulmonary rehab
[2018-05-06] MEDS: INSULIN ASPART 100 UNIT/ML INSULN PEN SUBCUT ×3 (11:54→21:00)
--- NOTE | 2018-05-06 13:15 | CM.DPC ---
Chart Review: Patient continues with SOB at rest increasing with activity. Is on 3 liters of oxygen up to 5 liters with activity. He is his same oxygen level as home but his level of dyspnea is not his baseline. Plan: Home with [facility] and radha for oxygen.
--- NOTE | 2018-05-06 15:03 | PT.IPTN ---
Current Diagnoses Sepsis, unspecified organism (05/01/18) Type 2 diabetes mellitus without complications (05/01/18) Hyperlipidemia, unspecified (05/01/18) Anxiety disorder, unspecified (05/01/18) Pneumonia, unspecified organism (05/01/18) Chronic obstructive pulmonary disease with (acute) exacerbation (05/01/18) Acute and chronic respiratory failure with hypoxia (05/01/18) Severe sepsis without septic shock (05/01/18) Physical Therapy Treatment Note M2 PT-IP Current Condition Start: 05/04/18 17:02 Freq: NEEDED Status: Active Protocol: Document 05/05/18 15:10 RCC (Rec: 05/05/18 15:14 RCC [id number]) Physical Therapy Current Condition Current Condition Evaluation Date 05/04/18 Treatment Diagnosis respiratory failure with hypoxia; COPD exacerbation; acute PNA Onset Date 05/01/18 Precautions Other Precautions O2 sat; [place] M3 PT-IP Subjective Start: 05/04/18 17:02 Freq: NEEDED Status: Active Protocol: Document 05/06/18 15:03 CLB (Rec: 05/06/18 15:03 CLB [id number]) Subjective Physical Therapy Visit Type Type Patient Refusal Notes Pt stated he was waiting for d /c orders and he didn't want to tire himself out before going home. M4 PT-IP Mobility and Gait Start: 05/04/18 17:02 Freq: NEEDED Status: Active Protocol: Document 05/06/18 10:05 CLB (Rec: 05/06/18 10:49 CLB [id number]) PT-Bed Mobility Assessment Supine to Sit Supine to Sit Independent Head of Bed Elevated Sit to Supine Sit to Supine Independent Head of Bed Elevated Scooting Scooting to Edge of Bed Independent Scooting Up and Down in Bed Independent PT-Transfer Assessment Sit to and From Stand Sit to and from Stand Standby Assistance Equipment Transfer Assistive Device Gait Belt Transfers Transfer Destination Bed Transfer Technique Stand Step Pivot Transfer Ability Level of Assist Standby Assistance Gait Assessment Gait Gait Assistance Required: Standby Assistance Distance (Feet) 20 Assistive Devices Assistive Device Gait Belt Factors Limiting Gait Function Factors Limiting Gait Function Decreased Activity Tolerance Decreased Strength Comments Gait Comments pt marched in place at bed side. Pt on 3L O2 and after marching pt O2 sats decreased to 94% and [place] 101 with recovery to 97% after several minutes of deep breathing. Pt stated increase in anxiety when O2 gets below 91%. M5 PT-IP Objective Assessments Start: 05/04/18 17:02 Freq: NEEDED Status: Active Protocol: Document 05/04/18 16:25 AB (Rec: 05/04/18 17:26 AB [id number]) Orientation Orientation/Cognition Level of Alertness Alert Orientation Name Age Birthday Month Date Year Day of Week Place Situation Safety Awareness Understands Safety Issues Gross Range of Motion Lower Extremity ROM Assessment Within Functional Limits Strength Lower Extremity Strength Assessment Within Functional Limits Muscle Tone Muscle Tone WNL Yes M6 PT-IP Treatment Start: 05/04/18 17:02 Freq: NEEDED Status: Active Protocol: Document 05/06/18 10:05 CLB (Rec: 05/06/18 10:49 CLB [id number]) Physical Therapy Treatment Other Treatments Other Treatment Performed Standing M7 PT-IP Assessment and Plan Start: 05/04/18 17:02 Freq: NEEDED Status: Active Protocol: Document 05/06/18 10:05 CLB (Rec: 05/06/18 10:49 CLB [id number]) PT Summary Assessment and Plan Summary Progress Towards Goals Slow Progress due to Medical Issues Assessment Summary Pt continues to have increased SOB and HR with marching in place. Pt has increase in anxiety and respectfully refused to leave bedside for gait. Goals Bed Mobility Goal Independent Transfer Goal Independent Gait Goal Independent Gait Distance 75 Days to Meet Goals 5 Frequency of Treatment Frequency Of Treatment Twice a Day Treatment Plan Other Recommendations and Next Treatment gait training with monitor of Focus O2 and [place]. Recommendations To Nursing Amount of Assist Needed Standby Assistance Discharge Recommendations PT Discharge Recommendations Home with Assistance Home Health Other Discharge Recommendations cardiopulmonary rehab
--- NOTE | 2018-05-06 18:44 | P.PN_ITS ---
Subjective Date Patient Seen: 05/06/18 Time Patient Seen: 14:42 Interval history: History of present illness Follow up on patient with acute severe COPD exacerbation much improved during hospital course Strep pneumococcal pneumonia was also noted during hospital course. Patient's antibiotics changed to Ancef IV. Review of system Patient notes he is breathing better no chest pain or shortness of breath no nausea Exam Vital Signs (past 8 hours): - 05/06/18 11:10 05/06/18 11:29 05/06/18 15:40 Temperature Pulse Rate 88 86 78 Respiratory Rate 20 18 Blood Pressure 164/76 H Pulse Oximetry 98 96 98 05/06/18 15:58 05/06/18 17:46 Temperature 96.9 F L Pulse Rate 84 Respiratory Rate 20 Blood Pressure 150/84 H Pulse Oximetry 97 97 Fraction of Inspired Oxygen 0.30 Oxygen Delivery Method Nasal Cannula Oxygen Flow Rate 3 Narrative Exam Narrative: General appearance patient is not awake and alert no apparent distress at rest Psychiatric oriented well to time place and person mood is pleasant affect is appropriate Respiratory limited airflow movement is evident on exam which is apparently patient's baseline no significant crackles or wheezing noted Cardiovascular regular rate rhythm no murmurs +3 pulses noted to extremities PMI nondisplaced GI benign soft nontender positive bowel sounds no masses no distention no bruits no guarding Neurologic no focal neurologic changes cranial nerves 2-12 grossly intact Objective Labs Result Diagrams: 05/06/18 05:32 05/06/18 05:32 Labs: Laboratory Results - last 24 hr 05/06/18 05/06/18 05:32 05:32 WBC 9.5 RBC 4.73 Hgb 13.9 Hct 41.9 MCV 88.6 MCH 29.3 MCHC 33.1 RDW 14.0 Plt Count 397 Neut % (Auto) Not Reportable Lymph % (Auto) Not Reportable [place] % (Auto) Not Reportable Eos % (Auto) Not Reportable Baso % (Auto) Not Reportable Seg Neutrophils % 90.0 H Band Neutrophils % 1.0 L Lymphocytes % (Manual) 4.0 L Monocytes % (Manual) 5.0 RBC Morphology Normal morphology Sodium 144 Potassium 5.8 H D Chloride 98 Carbon Dioxide 39 H BUN 24 H Creatinine 0.60 L Estimated GFR > 60.0 BUN/Creatinine Ratio 40.0 H Glucose 124 H Calcium 9.7 Assessment & Plan Plan: Assessment/Plan Narrative: Acute hypoxic respiratory failure - Likely due to acute severe COPD exacerbation and streptococcal pneumoniae pneumonia - CTA PE revealed emphysema and R basilar infiltrate as well as BL small nodules and L apical cavitation-old DAVID? 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 Hospitalist May [address] Milligan- no treatment for Aspergillus at this time recommended - Pending repeat sputum culture/fungal/AFB/stain - I discussed with patient about having an Oxymizer to be used in home setting. Patient using a portable oxygen concentrator when he ambulates but the Oxygen flow rate is quite high at 5 liters/minute when he ambulates 2. Acute severe grade COPD Exacerbation Much improved - Continue Nebs, Steroids and Nocturnal Bipap - Patient gets tobramycin every other month, inhaled...will continue as scheduled (Due to get one Dose May 07-will give in the hospital) 3. HLD - Continue Statin 4. Anxiety - Ativan PRN 5. DM - Continue Diabetic diet - Continue Insulin as indicated Time Spent With Patient Time with patient: 25 - 35 minutes (25 min)
--- NOTE | 2018-05-06 19:50 | PC.NURSE ---
Pt's iv failed and unable to administer iv solumedrol. IV dc'd intact. Dr. Chaves in house and was made aware of this.
[2018-05-06] MEDS: INSULIN GLARGINE 100 UNIT/ML 3ML PEN 20 UNIT SUBCUT (20:59)
[2018-05-06] MEDS: DOCUSATE 100 MG CAPSULE PO (21:01)
[2018-05-06] MEDS: ATORVASTATIN 20 MG TABLET PO (21:01)
[2018-05-07 00:15] VITALS: O2SAT 100
[2018-05-07 02:32] VITALS: BP 156/77; PULSE 66; RESP 19; TEMP 36.3; O2SAT 99
[2018-05-07] MEDS: ALBUTEROL/IPRATROPIUM 3 ML AMPUL INH (07:13)
[2018-05-07 07:16] VITALS: PULSE 72
[2018-05-07 08:00] VITALS: BP 166/79; PULSE 76; RESP 16; TEMP 36.6; O2SAT 98
[2018-05-07] MEDS: TAMSULOSIN 0.4 MG CAPSULE PO (08:03)
[2018-05-07] MEDS: ASPIRIN EC 81 MG TABLET PO (08:03)
[2018-05-07] MEDS: predniSONE 20 MG TABLET 40 MG PO (08:03)
[2018-05-07] MEDS: ENOXAPARIN 40 MG/0.4 ML SYRINGE SUBCUT (08:03)
[2018-05-07] MEDS: DOCUSATE 100 MG CAPSULE PO (08:03)
--- NOTE | 2018-05-07 09:08 | P.DS_ITS ---
History of Present Illness Date Patient Seen: 05/07/18 Time Patient Seen: 08:58 Chief complaint: Difficulty Breathing Narrative: Patient admitted to the hospital with acute severe COPD exacerbation. Patient was found to have a streptococcal pneumoniae pneumonia. Patient was provided respiratory medications and oxygen as needed with antibiotics. The antibiotics were tapered down to Ancef once the organism was identified and sensitivity. Patient continued to do well during hospital course. Patient was noted as suitable and stable for discharge in a.m. on May 07 patient was anxious for discharge. was at bedside waiting for patient to be brought home. Will continue patient on the antibiotic Keflex at 7 :50 a.m. p.o. t.i.d. along with prednisone at 20 mg p.o. b.i.d.. The Keflex to continue for another 10 days and the prednisone for another 5 days. Advise follow-up with his PCP in the next 1 week after discharge Discharge Providers Date of admission: 05/01/18 22:26 Primary care physician: Rubens Olivier MD Consults: 05/04/18 14:30 Consult to Physical Therapy Evaluate & Treat Comment: Physician Instructions: Evaluate and Treat Discharge provider: Ashok Finley MD Summary Discharge Diagnosis: 1. Streptococcal Pneumoniae Pneumonia 2. Acute severe grade COPD Exacerbation much improved. At baseline on day of discharge 3. HLD 4. Anxiety 5. DM Hospital Course: Patient id the hospital with acute shortness of breath and hypoxemia. Note patient has fairly advanced stage COPD with home oxygen at 3 liters/minute around the clock. He raises it to 5 liter/minute when he is ambulating. Patient is using a oxygen concentrator when he mobilizes. There is some question though whether he is getting sufficient delivery of oxygen at 5 liters/minute rate with a portable oxygen concentrator. I did discuss with the patient using a Oxymizer a while he is ambulating to assist in providing optimal oxygen delivery at thus higher rate of flow. During hospital course he was provided oxygen respiratory medications. Once the organism was identified as the cause of the pneumonia is the antibiotics were streamlined. Is antibiotic was Ancef IV as written by the prior hospitalist. Patient was transitioned from Solu-Medrol IV to prednisone orally at 40 mg daily. He continued to do reasonably well under the circumstance with with his advanced COPD. Patient was stable for discharge in a.m. on May 07. He was looking forward to discharge his is at bedside awaiting for the discharge to be completed. She will transport him home. Patient buys half early follow-up with his primary care doctor in next onek. week. Status at Discharge Cognitive/behavioral status at discharge: The patient is well-oriented good cognitive function no apparent distress patient at baseline Functional status at discharge: independent ambulation Time Spent with Patient Greater than 30 minutes (40 min discharge the patient) Time spent discussing smoking cessation with patient: more than 10 minutes ( Patient no longer smokes cigarettes) Exam Vital Signs (past 8 hours): - 05/07/18 02:32 05/07/18 07:16 05/07/18 08:00 Temperature 97.4 F L 97.8 F Pulse Rate 66 72 76 Respiratory Rate 19 16 Blood Pressure 156/77 H 166/79 H Pulse Oximetry 99 98 Fraction of Inspired Oxygen 0.30 Oxygen Delivery Method Nasal Cannula Oxygen Flow Rate 3 Narrative Exam Narrative: General appearance patient is awake and alert no apparent distress anxious for discharge Psychiatric well oriented to time place person mood is pleasant affect is appropriate Respiratory very limited air flow is noted which is patient's baseline based upon history. No crackles no wheezing noted Cardiovascular regular rate rhythm no murmurs GI is fairly benign soft nontender Extremities warm with good pulses 40 min to complete discharge the patient Objective Labs Result Diagrams: 05/06/18 05:32 05/06/18 05:32 Discharge Plan Discharge Plan Patient Disposition: Home Discharge comment: Patient to follow up with his PCP in next 1 week after discharge Discharge Med Rec/Prescriptions Prescriptions: New prednisone 20 mg tablet 20 mg PO BID Qty: 20 RF: 0 cephalexin [Keflex] 750 mg capsule 750 mg PO TID Qty: 30 RF: 0 Continue furosemide 40 mg tablet 40 mg PO DAILY Qty: 30 RF: 0 guaifenesin [Mucinex] 600 MG tablet extended release 12hr 600 mg PO Q12H Qty: 0 RF: 0 multivitamin [Multiple Vitamins] 1 EACH tablet 1 tab PO QDAY Qty: 0 RF: 0 cholecalciferol (vitamin D3) [Vitamin D3] 1,000 UNIT tablet 1,000 unit PO QDAY Qty: 0 RF: 0 albuterol sulfate [Proventil HFA] 90 MCG/PUFF HFA aerosol inhaler 2 puff INH Q4H Qty: 0 RF: 0 tiotropium bromide [Spiriva with HandiHaler] 18 MCG capsule, w/inhalation device 1 puff INH QDAY Qty: 0 RF: 0 atorvastatin [Lipitor] 20 MG tablet 20 mg PO HS Qty: 90 RF: 1 metformin [Glucophage XR] 500 mg tablet extended release 24 hr 1,000 mg PO BID Qty: 180 RF: 3 tamsulosin [Flomax] 0.4 mg capsule 0.4 mg PO QDAY Qty: 90 RF: 0 lorazepam 0.5 mg tablet 0.5 mg PO BID PRN (Reason: anxiety) Qty: 60 RF: 0 Spacer: Inhaler Spacer Device 1 ea Inhalation DIRECTED RF: 0 fluticasone-salmeterol [Advair Diskus] 250-50 mcg/dose Blister With Device 1 inh INHALATION Q12H RF: 0 ipratropium-albuterol 0.5 mg-3 mg(2.5 mg base)/3 mL Solution For Nebulization 1 dose Inhalation PRN PRN (Reason: Shortness Of Breath) RF: 0 albuterol sulfate 2.5 mg /3 mL (0.083 %) Solution For Nebulization 3 ml Inhalation TID RF: 0 aspirin 81 mg Tablet,Delayed Release (Dr/Ec) 81 mg PO DAILY RF: 0 loratadine 10 mg Tablet 10 mg PO DAILY RF: 0 tobramycin with nebulizer 300 mg/5 mL Solution For Nebulization 300 mg INHALATION DAILY RF: 0 Follow up/Referrals: Rubens Olivier MD [Primary Care Provider] - (Please see patient in the next 1 week after discharge. Patient admitted to the hospital with acute severe COPD exacerbation. Patient also noted with streptococcal pneumoniae pneumonia and provided continued oral antibiotic therapy upon discharge.) Discharge Data Primary Care Provider: Rubens Olivier Attending Provider: Yelitza Osei Admit Date/Time: 05/01/18 22:26
--- NOTE | 2018-05-07 09:34 | PT.IPTN ---
Current Diagnoses Sepsis, unspecified organism (05/01/18) Type 2 diabetes mellitus without complications (05/01/18) Hyperlipidemia, unspecified (05/01/18) Anxiety disorder, unspecified (05/01/18) Pneumonia, unspecified organism (05/01/18) Chronic obstructive pulmonary disease with (acute) exacerbation (05/01/18) Acute and chronic respiratory failure with hypoxia (05/01/18) Severe sepsis without septic shock (05/01/18) Physical Therapy Treatment Note M2 PT-IP Current Condition Start: 05/04/18 17:02 Freq: NEEDED Status: Active Protocol: Document 05/05/18 15:10 RCC (Rec: 05/05/18 15:14 RCC [id number]) Physical Therapy Current Condition Current Condition Evaluation Date 05/04/18 Treatment Diagnosis respiratory failure with hypoxia; COPD exacerbation; acute PNA Onset Date 05/01/18 Precautions Other Precautions O2 sat; [place] M3 PT-IP Subjective Start: 05/04/18 17:02 Freq: NEEDED Status: Active Protocol: Document 05/07/18 09:00 [place] (Rec: 05/07/18 09:34 LJ [id number]) Subjective Physical Therapy Visit Type Type Patient Refusal Notes Pt going home later this am and didn't want to tire himself out M4 PT-IP Mobility and Gait Start: 05/04/18 17:02 Freq: NEEDED Status: Active Protocol:
--- NOTE | 2018-05-07 11:26 | PC.NURSE ---
Discharge order received. Discharge instructions and home care handouts reviewed with patient and his . Prescriptions given to patient to fill at pharmacy of choice. patient and state understanding and have no further questions or concerns at this time. Patient has portable oxygen from home available at discharge, patient escorted out via wheelchair by [employer] with all belongings. Follow up appointment scheduled for patient for 05/[address] Olivier at 11:15.
--- NOTE | 2018-05-07 11:36 | CM.DPC ---
DCP: continued: pt now with d/c orders for home. Resume HH orders are obtained and [facility] is updated. DC summary and orders faxed to her. Pt is updated re the home health. He does clarify that his o2 vendor is [facility]. His is on he way to pick him up now. LAVERNE Valdovinos is updated.
--- NOTE | 2018-05-07 12:10 | RT ---
Faxed oximizer pendant order to [facility]. They will provide to him
== END 2018-05-07 11:29 | disposition home or self-care (01) | DRG 189 ==
LOC: ED 21:34 → ICU 05-02 09:18 → AC 05-07 08:57 → ICU 03-11 15:47
PROVIDERS: Internal Medicine; Admitting Provider Internal Medicine; Emergency Provider Emergency Medicine; Family Provider Internal Medicine Infectious Disease; PCP Student in an Organized Health Care Education/Training Program; Visit Provider Internal Medicine
DX: J96.21 Acute and chronic respiratory failure with hypoxia (principal); J13 Pneumonia due to Streptococcus pneumoniae; J44.1 Chronic obstructive pulmonary disease with (acute) exacerbation; J44.0 Chronic obstructive pulmonary disease with (acute) lower respiratory infection; Z99.81 Dependence on supplemental oxygen; F41.9 Anxiety disorder, unspecified; I73.9 Peripheral vascular disease, unspecified; E78.5 Hyperlipidemia, unspecified; I25.10 Atherosclerotic heart disease of native coronary artery without angina pectoris; Z87.891 Personal history of nicotine dependence; E11.9 Type 2 diabetes mellitus without complications; Z79.84 Long term (current) use of oral hypoglycemic drugs
CPT/HCPCS: 36415; 36600; 71045; 71046; 71275; 80048; 80053; 80069; 82247; 82805; 82962; 83605; 83880; 84145; 84484; 85025; 85379; 87040; 87070; 87077; 87102; 87107; 87116; 87186; 87205; 87797; 90471; 90656; 93005; 94640; 94660; 94667; 94760; 94762; 96361; 96365; 96375; 97162; 97530; 99284; 99291; J0690; J1650; J1885; J2543; J2930; J3243; J7613; Q2038; Q9967

== ENCOUNTER → 2018-05-09 13:34 | Outpatient (REF) | payer MEDICARE, OTHER, SELFPAY ==
[2018-05-01 22:37] VITALS: BMI 25.2
[2018-05-03 03:08] VITALS: PULSE 84; RESP 24; O2SAT 98
[2018-05-09 13:46] LABS: Appearance Urine UA CLEAR; Bilirubin Urine UA NEGATIVE (NEGATIVE); Color Urine UA YELLOW; Glucose Urine UA TRACE g/dL (Normal); Ketones Urine UA NEGATIVE (NEGATIVE); Leukocyte Esterase Urine UA NEGATIVE (NEGATIVE); Nitrite Urine UA Negative (Negative); Occult Blood Urine UA NEGATIVE (Negative); Protein Urine UA NEGATIVE (Negative); Specific Gravity Urine UA 1.015 (1.000-1.035); Urobilinogen Urine UA 0.2 E.U./dL (0.2); pH Urine UA 7.5 (4.5-8.0)
[2018-05-09 14:51] LABS: Bacteria Urine Few (2-10); RBC Urine 0-1/HPF (0-5/HPF); Squamous Epithelial Cell Urine 0-1 /HPF; WBC Urine 1-5/HPF (0-5/HPF)
== END ==
LOC: LAB 13:34
PROVIDERS: Family Provider Internal Medicine Infectious Disease; PCP Student in an Organized Health Care Education/Training Program; Visit Provider Student in an Organized Health Care Education/Training Program
DX: N39.0 Urinary tract infection, site not specified (principal)
CPT/HCPCS: 81001; 87086

== ENCOUNTER 2018-05-26 19:40 | Emergency (ER) | payer MEDICARE, OTHER, SELFPAY ==
[2018-05-01 22:37] VITALS: BMI 25.2
[2018-05-03 03:08] VITALS: PULSE 84; RESP 24; O2SAT 98
[2018-05-26 19:50] VITALS: BP 152/73; PULSE 110; PULSE 113; RESP 24; RESP 26; TEMP 36.3; O2SAT 100
--- NOTE | 2018-05-26 19:52 | DI.RAD.S_ITS ---
PROCEDURE: XR CHEST 1V INDICATIONS: SOB TECHNIQUE: One view of the chest was acquired. COMPARISON: [facility], CR, XR CHEST 2V, 05/05/2018, 15:17. FINDINGS: Surgical changes and devices: None. Lungs and pleura: Lungs are hyperexpanded with trace blunting of the costophrenic angles, likely scarring. Appearance is suggestive of COPD. Chronic scarring is present. Slight appearance of increased bibasilar opacities are noted. Mediastinum: Mediastinal contours appear normal. Heart size is normal. Bones and chest wall: No suspicious bony lesions. Overlying soft tissues appear unremarkable. IMPRESSION: COPD as above. Questionable slight appearance of increased bibasilar opacities. This could represent scarring, atelectasis or less likely developing airspace disease such as pneumonia. Dictated by: Deann Carmona M.D. on 05/26/2018 at 20:47 Approved by: Deann Carmona M.D. on 05/26/2018 at 20:48
--- NOTE | 2018-05-26 19:56 | ED.SOB ---
HPI - SOB/Dyspnea General Chief Complaint: Shortness of Breath/Dyspnea Stated Complaint: SOB,hx copd Time Seen by Provider: 05/26/18 19:45 Source: patient, EMS and old records reviewed Mode of arrival: EMS Limitations: no limitations History of Present Illness This is a 67-year-old male who comes to the emergency department with complaint of shortness of breath. Patient has known COPD. Patient states tonight after eating he suddenly felt much more short of breath. He tried a DuoNeb, and albuterol and inhaled tobramycin as well as his CPT vest. He states the CPT vest actually made it worse and he felt like he could move any air. He states his oxygen was lower than normal. He is normally on 3 L nasal cannula. Patient denies any recent fevers. He has been coughing but not more than normal and has not had any change in his sputum he states that the out whitish color. Patient denies any chest pain. EMS gave him an additional DuoNeb which she states did help and he was able to move air little bit better although he still feels like he is breathing fast and having some difficulty. He denies any abdominal pain. No nausea or vomiting no GI or urinary issues. He occasionally gets swelling particularly in his legs but has not had any worsening or issues recently. Patient was just hospitalized recently with similar symptoms. Related Data Home oxygen amount: 3 liters Home Medications Medication Instructions Recorded Confirmed cholecalciferol (vitamin D3) 1,000 unit PO QDAY #0 02/07/17 05/26/18 [Vitamin D3] guaifenesin [Mucinex] 600 mg PO Q12H #0 02/07/17 05/26/18 multivitamin [Multiple Vitamins] 1 tab PO QDAY #0 02/07/17 05/26/18 albuterol sulfate [Proventil HFA] 2 puff INH Q4H #0 02/08/17 05/26/18 tiotropium bromide [Spiriva with 1 puff INH QDAY #0 08/03/17 05/26/18 HandiHaler] Spacer: Inhaler Spacer Device 1 ea INHALATION DIRECTED 01/26/18 05/26/18 albuterol sulfate 3 ml INHALATION TID 01/26/18 05/26/18 aspirin 81 mg PO DAILY 01/26/18 05/26/18 fluticasone-salmeterol [Advair 1 inh INHALATION Q12H 01/26/18 05/26/18 Diskus] ipratropium-albuterol 1 dose INHALATION PRN PRN 01/26/18 05/26/18 loratadine 10 mg PO DAILY 01/26/18 05/26/18 tobramycin with nebulizer 300 mg INHALATION DAILY 05/01/18 05/26/18 furosemide 40 mg PO DAILY PRN 05/26/18 05/26/18 Previous Rx's Medication Instructions Recorded atorvastatin [Lipitor] 20 mg PO HS #90 tab 09/15/17 metformin ER 500 mg 1,000 mg PO BID #180 tab 12/22/17 tablet,extended release 24 hr tamsulosin 0.4 mg capsule 0.4 mg PO QDAY #90 cap 03/22/18 lorazepam 0.5 mg tablet 0.5 mg PO BID PRN #60 tab 04/06/18 prednisone 20 mg PO BID #20 tab 05/07/18 food supplement, lactose-reduced See Label Instructions .ROUTE 05/22/18 oral liquid .COMPLEX #2832 ml prednisone 40 mg PO DAILY 5 Days tab 05/26/18 Allergies Allergy/AdvReac Type Severity Reaction Status Date / Time felodipine [FELODIPINE] Allergy Intermediate SWELLING Verified 05/26/18 19:50 Review of Systems Review of Systems All systems reviewed & are unremarkable except as noted in HPI and below Constitutional Denies chills and Denies fever(s) Cardiovascular Denies chest pain, Reports pedal edema (sometimes in leg but not recently), Denies irregular heart rhythm, Denies lightheadedness, Denies palpitations, Reports dyspnea and Denies orthopnea Respiratory Denies chest congestion, Reports cough, Denies hemoptysis, Denies excessive phlegm production, Reports dyspnea and Reports wheezing Gastrointestinal Gastrointestinal: Denies abdominal pain, Denies change in bowel habits, Denies diarrhea, Denies nausea and Denies vomiting Genitourinary Denies difficulty urinating Endocrine Denies palpitations Allergic/Immunologic Reports wheezing FOR[facility]LY [facility] Medical History Anxiety (Chronic Unknown) Peripheral vascular disease (Chronic Unknown) Hx of small bowel obstruction (Resolved 03/2015) Hyperlipemia (Chronic Unknown) Chronic respiratory failure with hypoxia (Chronic Unknown) Nontuberculous mycobacterial infection (Chronic 2014) Coronary artery disease (Chronic Unknown) History of colon cancer (Resolved ~2010) BPH (benign prostatic hyperplasia) (Chronic Unknown) COPD (chronic obstructive pulmonary disease) (Chronic) Dyspnea (Chronic) COPD (chronic obstructive pulmonary disease) (Chronic Unknown) Diabetes (Chronic Unknown) COPD (chronic obstructive pulmonary disease) (Inactive) Dependent edema (Inactive) Surgical History H/O cardiac catheterization (Resolved 2010) S/P small bowel resection (Resolved 03/2015) Hx of hernia repair (Resolved 2008) S/P colon resection (Resolved 2010) Hx of cataract surgery (Resolved 2014) Social History household members: spouse Smoking Status: Former smoker Exam Narrative Exam Narrative: GEN: well nourished, well appearing male, alert and oriented x 3, patient appears to be in moderate distress. HEENT: Atraumatic, pupils are equal round reactive to light, extraocular movements are intact, nares are clear. HEART: Tachycardic but regular rate and rhythm without murmur, clicks, rubs. pulses are equal in upper and lower extremities. No edema bilateral lower extremities. LUNGS:Lungs decreased breath sounds bilaterally, no crackles or rales, patient has minimal malaise the left, patient is tachypneic with 2-3 word sentences, chest moves symmetrically ABD: bowel sounds normal, soft, non-tender, no guarding, rebound, rigidity, no masses noted, no hepatosplenomegaly MSCL: Non-tender, no muscle atrophy, muscles strength 5/5 upper and lower extremities, full range of motion, normal gait NEURO:CN 2-12 intact, sensation normal Initial Vital Signs Initial Vital Signs: Vital Signs Temperature 97.3 F L 05/26/18 19:50 Pulse Rate 113 H 05/26/18 19:50 Respiratory Rate 26 H 05/26/18 19:50 Blood Pressure 152/73 H 05/26/18 19:50 Pulse Oximetry 100 05/26/18 19:50 Course Orders Ordered: ED Orders 05/26/18 19:51 Consult to Respiratory Therapy Evaluate & Treat EKG-12 Lead Stat 05/26/18 19:52 XR chest 1V Stat Discontinued Medications Albuterol (Ventolin) 5 mg INH NOW ONE Stop: 05/26/18 19:51 Last Admin: 05/26/18 20:15 Dose: 5 mg Albuterol/Ipratropium (Duoneb) 3 ml INH NOW ONE Stop: 05/26/18 19:50 Last Admin: 05/26/18 20:15 Dose: 3 ml Sodium Chloride (Normal Saline 0.9%) 1,000 mls @ 150 mls/hr IV CONT DIAZ Last Infusion: 05/26/18 22:07 Dose: 0 mls/hr Admin: 05/26/18 21:31 Dose: 150 mls/hr Methylprednisolone (Solu-Medrol 125 Mg Vial) 125 mg IV NOW ONE Stop: 05/26/18 19:51 Last Admin: 05/26/18 20:02 Dose: 125 mg Reevaluation(s) Reevaluation #1: Recheck after 5mg albuterol patient has slight improvement of air movement. RR also slightly improved. Patient feels more comfortable. Time: 20:21 Reevaluation #2: Patient feels like he is returning to his baseline. He feels that he can manage his symptoms at home. Lab works shows that his white count is in the normal range, patient has slight elevation of his BUN and chloride slightly low. Patient's glucose is also slightly elevated at 293. Chest x-ray shows atelectasis versus evolving infection. Patient has not had fevers, he has not had any changes in sputum production or cough which leads me to believe that he likely does not have an infectious cause but this is more a flare of his COPD. We discussed that he has not been on any antibiotics recently and plan to do a burst dose of prednisone as well as continue his home medications. Patient and were comfortable with this plan. Patient has oxygen at home as well. Time: 21:05 Vital Signs - 8 hr 05/26/18 19:50 05/26/18 21:51 05/26/18 22:10 Temperature 97.3 F L 98.1 F Pulse Rate 110 H 89 93 H Respiratory Rate 24 27 H 18 Blood Pressure 152/73 H 133/50 L Blood Pressure [Left Arm] 133/50 L Pulse Oximetry 100 98 MDM - SOB/Dyspnea Lab Data Attestation: I reviewed the patient's lab results. Result diagrams: 05/26/18 Unknown 05/26/18 Unknown Lab Results 1005/26/18 05/26/18 Range/Units Unknown Unknown Unknown WBC 8.2 (4.5-11.0) X10^3/uL RBC 4.16 L (4.5-5.9) X10^6/uL Hgb 12.1 L (13.5-17.5) g/dL Hct 37.4 L (41-53) % MCV 89.9 (80-100) fL MCH 29.0 (26-34) PG MCHC 32.3 (30-36) % RDW 15.0 H (11.6-14.8) % Plt Count 286 (150-400) X10^3/uL Neut % (Auto) 80.7 H (50-75) % Lymph % (Auto) 10.8 L (25-40) % [place] % (Auto) 6.3 (3-14) % Eos % (Auto) 1.7 L (2-4) % Baso % (Auto) 0.5 (0-2) % Neut # (Auto) 6600 H (4976-4905) /uL PT 11.8 (10.1-12.7) SECONDS INR 1.1 (0.9-1.3) APTT 36 (26.4-36.2) SECONDS Sodium 143 (137-145) mmol/L Potassium 4.2 (3.4-5.1) mmol/L Chloride 97 L (98-107) mmol/L Carbon Dioxide 37 H (22-32) mmol/L BUN 21 H (9-20) mg/dL Creatinine 0.50 L (0.66-1.25) mg/dL Estimated GFR > 60.0 (>60) mL/min BUN/Creatinine Ratio 42.0 H (6-22) Glucose 293 H (80-110) mg/dL Calcium 9.5 (8.4-10.2) mg/dL Magnesium 1.6 (1.6-2.3) mg/dL Total Creatine Kinase < 20 L (55-170) U/L CK-MB (CK-2) TNP CK-MB (CK-2) Rel Index TNP Troponin I < 0.012 (0.01-0.034) ng/mL B-Natriuretic Peptide 39.9 (<100) Imaging Data Chest x-ray: Radiologist's impression: [address] [id number] XRay Report Signed Patient: Chacorta Yanes LMR#: [id number] : 8Acct:[id number] Age/Sex: 67 / MDate of Service: 05/26/18 Loc: ED Accession Number: [id number] Procedure: XR chest 1V Ordering Provider: Mar Ortega D.O. PROCEDURE: XR CHEST 1V INDICATIONS: SOB TECHNIQUE: One view of the chest was acquired. COMPARISON: [facility], CR, XR CHEST 2V, 05/05/2018, 15:17. FINDINGS: Surgical changes and devices: None. Lungs and pleura: Lungs are hyperexpanded with trace blunting of the costophrenic angles, likely scarring. Appearance is suggestive of COPD. Chronic scarring is present. Slight appearance of increased bibasilar opacities are noted. Mediastinum: Mediastinal contours appear normal. Heart size is normal. Bones and chest wall: No suspicious bony lesions. Overlying soft tissues appear unremarkable. IMPRESSION: COPD as above. Questionable slight appearance of increased bibasilar opacities. This could represent scarring, atelectasis or less likely developing airspace disease such as pneumonia. Dictated by: Deann Carmona M.D. on 05/26/2018 at 20:47 Approved by: Deann Carmona M.D. on 05/26/2018 at 20:48 ECG Data Attestation: I personally reviewed and interpreted this ECG as follows: Prior ECG tracings: available for review Interpretation: Tachycardia rate of 106, P are 116, cares 86 and QTC of 387. Patient has similar EKGs 05/01/2018 and 01/26/[address] segments. Discharge Plan Departure Patient Disposition: Home Clinical Impression: Acute exacerbation of chronic obstructive pulmonary disease (COPD) Discharge Date/Time: 05/26/18 22:10 Interventions: ED Discharge Assessment Last Done: 05/26/18 22:10 Instructions: DI for Chronic Obstructive Pulmonary Disease Activity Restrictions/Additional Instructions: Call Monday morning for recheck and follow up with primary care physician. Continue home medications as prescribed including your inhaled medications. Take prednisone 40mg daily x 5 days until gone. Return for fevers, worsening difficulty breathing, chest pain, syncope, productive sputum with green or other dark color changes, other new or concerning symptoms. Prescriptions: New prednisone 20 mg tablet 40 mg PO DAILY 5 Days RF: 0 No Action guaifenesin [Mucinex] 600 MG tablet extended release 12hr 600 mg PO Q12H Qty: 0 RF: 0 multivitamin [Multiple Vitamins] 1 EACH tablet 1 tab PO QDAY Qty: 0 RF: 0 cholecalciferol (vitamin D3) [Vitamin D3] 1,000 UNIT tablet 1,000 unit PO QDAY Qty: 0 RF: 0 albuterol sulfate [Proventil HFA] 90 MCG/PUFF HFA aerosol inhaler 2 puff INH Q4H Qty: 0 RF: 0 tiotropium bromide [Spiriva with HandiHaler] 18 MCG capsule, w/inhalation device 1 puff INH QDAY Qty: 0 RF: 0 atorvastatin [Lipitor] 20 MG tablet 20 mg PO HS Qty: 90 RF: 1 metformin [Glucophage XR] 500 mg tablet extended release 24 hr 1,000 mg PO BID Qty: 180 RF: 3 tamsulosin [Flomax] 0.4 mg capsule 0.4 mg PO QDAY Qty: 90 RF: 0 lorazepam 0.5 mg tablet 0.5 mg PO BID PRN (Reason: anxiety) Qty: 60 RF: 0 food supplemt, lactose-reduced [Ensure] liquid See Label Instructions .ROUTE .COMPLEX Qty: 2832 RF: 3 Spacer: Inhaler Spacer Device 1 ea Inhalation DIRECTED RF: 0 fluticasone-salmeterol [Advair Diskus] 250-50 mcg/dose Blister With Device 1 inh INHALATION Q12H RF: 0 ipratropium-albuterol 0.5 mg-3 mg(2.5 mg base)/3 mL Solution For Nebulization 1 dose Inhalation PRN PRN (Reason: Shortness Of Breath) RF: 0 albuterol sulfate 2.5 mg /3 mL (0.083 %) Solution For Nebulization 3 ml Inhalation TID RF: 0 aspirin 81 mg Tablet,Delayed Release (Dr/Ec) 81 mg PO DAILY RF: 0 loratadine 10 mg Tablet 10 mg PO DAILY RF: 0 furosemide 40 mg Tablet 40 mg PO DAILY PRN (Reason: SOB) RF: 0 tobramycin with nebulizer 300 mg/5 mL Solution For Nebulization 300 mg INHALATION DAILY RF: 0 prednisone 20 mg tablet 20 mg PO BID Qty: 20 RF: 0
[2018-05-26] MEDS: methylPREDNISolone 125 MG/2 ML VIAL IV (20:02)
[2018-05-26 20:07] LABS: Add Manual Diff / Slide Review NO; Basophils Percent Auto 0.5 % (0-2); Eosinophils Percent Auto 1.7 % (2-4); Hematocrit 37.4 % (41-53); Hemoglobin 12.1 g/dL (13.5-17.5); Lymphocytes Percent Auto 10.8 % (25-40); Mean Corpuscular HGB Conc 32.3 % (30-36); Mean Corpuscular Volume 89.9 fL (80-100); Monocytes Percent Auto 6.3 % (3-14); Neutrophils Absolute Auto 6600 /uL (3000-5900); Neutrophils Percent Auto 80.7 % (50-75); Platelet Count 286 X10^3/uL (150-400); Red Blood Cell Count 4.16 X10^6/uL (4.5-5.9); White Blood Cell Count 8.2 X10^3/uL (4.5-11.0)
[2018-05-26 20:08] LABS: INR 1.1 (0.9-1.3); Prothrombin Time 11.8 SECONDS (10.1-12.7)
[2018-05-26 20:11] LABS: PTT Partial Thromboplastin Tim 36 SECONDS (26.4-36.2)
[2018-05-26 20:13] LABS: Blood Urea Nitrogen 21 mg/dL (9-20); Calcium 9.5 mg/dL (8.4-10.2); Carbon Dioxide 37 mmol/L (22-32); Chloride 97 mmol/L (98-107); Creatine Kinase < 20 U/L (55-170); Estimated Glomerular Filt Rate > 60.0 mL/min (>60); Glucose 293 mg/dL (80-110); HEMOLYSIS < 15 (0-50); Magnesium 1.6 mg/dL (1.6-2.3); Potassium 4.2 mmol/L (3.4-5.1); Sodium 143 mmol/L (137-145)
[2018-05-26] MEDS: ALBUTEROL/IPRATROPIUM 3 ML AMPUL INH (20:15)
[2018-05-26] MEDS: ALBUTEROL 2.5 MG/3 ML NEB (ADULT) 5 MG INH (20:15)
[2018-05-26 20:25] LABS: Troponin I < 0.012 ng/mL (0.01-0.034)
[2018-05-26 20:38] LABS: B Type Natriuretic Peptide 39.9 (<100)
[2018-05-26] MEDS: SODIUM CHLORIDE 0.9% 1,000 ML 150 ML IV (21:31)
[2018-05-26 21:51] VITALS: BP 133/50; PULSE 89; RESP 27
[2018-05-26 22:10] VITALS: BP 133/50; PULSE 93; RESP 18; TEMP 36.7; O2SAT 98
== END 2018-05-26 22:10 | disposition home or self-care (01) ==
PROVIDERS: Emergency Provider Emergency Medicine; Family Provider Internal Medicine Infectious Disease; PCP Student in an Organized Health Care Education/Training Program
DX: J44.1 Chronic obstructive pulmonary disease with (acute) exacerbation (principal)
CPT/HCPCS: 71045; 80048; 82550; 83735; 83880; 84484; 85025; 85610; 85730; 93005; 93010; 94640; 96361; 96374; 99283; 99285; J2930; J7613

== ENCOUNTER → 2018-06-21 17:39 | Outpatient (REF) | payer MEDICARE, OTHER, SELFPAY ==
[2018-05-01 22:37] VITALS: BMI 25.2
[2018-05-03 03:08] VITALS: PULSE 84; RESP 24; O2SAT 98
[2018-06-21 17:42] LABS: Bacteria Urine None Seen; RBC Urine None Seen (0-5/HPF)
[2018-06-21 17:48] LABS: Bilirubin Urine UA NEGATIVE (NEGATIVE); Color Urine UA YELLOW; Glucose Urine UA TRACE g/dL (Normal); Ketones Urine UA NEGATIVE (NEGATIVE); Leukocyte Esterase Urine UA NEGATIVE (NEGATIVE); Nitrite Urine UA NEGATIVE (Negative); Occult Blood Urine UA NEGATIVE (Negative); Protein Urine UA NEGATIVE (Negative); Urobilinogen Urine UA 0.2 E.U./dL (0.2)
[2018-06-21 17:52] LABS: Appearance Urine UA Slightly Cloudy
[2018-06-21 18:15] LABS: Amorphous Sediment Urine 1+; Calcium Oxalate Crystals Urine Few; Culture Indicated Urine Cult Not Indicated; Mucus Urine 1+ (Negative); Squamous Epithelial Cell Urine 0-1 /HPF; WBC Urine 0-1/HPF (0-5/HPF)
== END ==
LOC: LAB 17:39
PROVIDERS: Family Provider Internal Medicine Infectious Disease; PCP Student in an Organized Health Care Education/Training Program; Visit Provider Student in an Organized Health Care Education/Training Program
DX: R35.0 Frequency of micturition (principal)
CPT/HCPCS: 81001

== ENCOUNTER 2018-07-06 11:44 | Inpatient (IN) | payer MEDICARE, OTHER, SELFPAY ==
[2018-07-05 11:59] VITALS: PULSE 84; RESP 24; O2SAT 98; BMI 25.2
[2018-07-06] VITALS (11 sets, daily range): BP systolic 123–161; BP diastolic 51–95; PULSE 81–115; RESP 20–31; TEMP 36.4–36.7; O2SAT 92–100; BMI 24.3
--- NOTE | 2018-07-06 12:34 | ED.SOB ---
HPI - SOB/Dyspnea <NISA Lewis - Last Filed: 07/06/18 22:07> General Chief Complaint: Shortness of Breath/Dyspnea Stated Complaint: trouble breathing Time Seen by Provider: 07/06/18 12:34 Source: patient Mode of arrival: wheelchair Limitations: no limitations History of Present Illness 67-year-old male with extensive COPD history and is a former smoker here for complaint of shortness of breath that started earlier today. He reports that he needed increased his oxygen from normal of 3 L up to 5-6 L he states he had a couple of nebulizer treatments this morning prior to arrival and still feels short of breath. he also reports having some lateral right-sided chest pain over the past day. He denies any trauma to the area. He denies any nausea vomiting. He denies any fevers or chills. Positive p.o. intake. He denies any recent illnesses. MD Complaint: shortness of breath Related Data Home Medications Medication Instructions Recorded Confirmed cholecalciferol (vitamin D3) 1,000 unit PO QDAY #0 02/07/17 07/06/18 [Vitamin D3] guaifenesin [Mucinex] 600 mg PO Q12H #0 02/07/17 07/06/18 multivitamin [Multiple Vitamins] 1 tab PO DAILY #0 02/07/17 07/06/18 albuterol sulfate [Proventil HFA] 2 puff INH Q4H PRN #0 02/08/17 07/06/18 tiotropium bromide [Spiriva with 1 puff INH DAILY #0 08/03/17 07/06/18 HandiHaler] Spacer: Inhaler Spacer Device 1 ea INHALATION DIRECTED 01/26/18 07/06/18 albuterol sulfate 3 ml INHALATION TID 01/26/18 07/06/18 aspirin 81 mg PO DAILY 01/26/18 07/06/18 fluticasone-salmeterol [Advair 1 inh INHALATION Q12H 01/26/18 07/06/18 Diskus] ipratropium-albuterol 1 dose INHALATION PRN PRN 01/26/18 07/06/18 loratadine 10 mg PO DAILY 01/26/18 07/06/18 tobramycin with nebulizer 300 mg INHALATION DAILY 05/01/18 07/06/18 furosemide 40 mg PO DAILY PRN 05/26/18 07/06/18 atorvastatin [Lipitor] 20 mg PO BEDTIME 07/06/18 07/06/18 tamsulosin [Flomax] 0.4 mg PO DAILY 07/06/18 07/06/18 Previous Rx's Medication Instructions Recorded lorazepam 0.5 mg tablet 0.5 mg PO BID PRN #60 tab 04/06/18 prednisone 20 mg PO BID #20 tab 05/07/18 food supplement, lactose-reduced See Label Instructions .ROUTE 05/22/18 oral liquid .COMPLEX #2832 ml metformin ER 500 mg 1,000 mg PO BID #180 tab 06/21/18 tablet,extended release 24 hr Allergies Allergy/AdvReac Type Severity Reaction Status Date / Time felodipine [FELODIPINE] Allergy Intermediate SWELLING Verified 06/12/18 10:57 Review of Systems <NISA Lewis - Last Filed: 07/06/18 22:07> Constitutional Denies chills, Denies fatigue, Denies fever(s), Denies lethargy and Denies weakness Eyes Denies change in vision, Denies eye discharge, Denies irritation and Denies loss of vision ENT Ears, Nose, Mouth, and Throat: Denies change in voice, Denies neck pain, Denies sore throat and Denies throat swelling Cardiovascular Reports chest pain and Reports dyspnea Respiratory Reports dyspnea and Denies wheezing Gastrointestinal Gastrointestinal: Denies abdominal pain, Denies change in bowel habits, Denies diarrhea, Denies nausea and Denies vomiting Genitourinary Denies hematuria, Denies flank pain, Denies urinary incontinence and Denies urinary urgency Musculoskeletal Denies neck pain Integumentary/Breasts Denies pruritus, Denies erythema, Denies rash and Denies wounds Neurologic Denies confusion, Denies loss of vision and Denies weakness Psychiatric Denies anxiety, Denies confusion, Denies depression, Denies homicidal ideation and Denies suicidal ideation Endocrine Denies fatigue and Denies flushing Hematologic/Lymphatic Denies easy bruising Allergic/Immunologic Denies urticaria, Denies throat swelling and Denies wheezing Exam <NISA Lewis - Last Filed: 07/06/18 22:07> Initial Vital Signs Initial Vital Signs: Vital Signs Temperature 98.1 F 07/06/18 11:54 Pulse Rate 115 H 07/06/18 11:54 Respiratory Rate 28 H 07/06/18 11:54 Blood Pressure 161/69 H 07/06/18 11:54 Pulse Oximetry 99 07/06/18 11:54 Const General: cooperative, well developed and in distress Nutritional Appearance: well nourished Orientation: alert, awake, oriented x3 and not confused [facility] Mouth: oral mucosae normal, oropharynx normal and moist mucous membranes Eyes Conjunctivae: conjunctivae normal Sclera: sclerae normal Pupils: PERRL EOM: EOM intact bilaterally Chest Chest: normal inspection of the chest Resp Effort & Inspection: labored, no respiratory distress and no use of accessory muscles Auscultation: rales, no rhonchi and wheezes Cardio Rate: regular rate Rhythm: regular rhythm Heart Sounds: no click, no gallops, no murmurs and no rubs Pulses: normal peripheral pulses GI Inspection: non-distended Palpation: soft, no hepatosplenomegaly, No guarding, No pulsatile mass and No tender Auscultation: normal bowel sounds Skin General: no rashes or lesions noted, No jaundice and No petechiae Neuro General: alert, oriented x3, gait normal and no focal motor deficits Speech: speech normal <Mar Ortega DO - Last Filed: 07/07/18 16:37> Initial Vital Signs Initial Vital Signs: Vital Signs Temperature 98.1 F 07/06/18 11:54 Pulse Rate 115 H 07/06/18 11:54 Respiratory Rate 28 H 07/06/18 11:54 Blood Pressure 161/69 H 07/06/18 11:54 Pulse Oximetry 99 07/06/18 11:54 Course <NISA Lewis - Last Filed: 07/06/18 22:07> Orders Ordered: ED Orders 07/07/18 13:36 EKG-12 Lead Routine Albuterol (Ventolin) 2.5 mg INH TID [facility] Last Admin: 07/07/18 13:00 Dose: 2.5 mg Admin: 07/07/18 08:29 Dose: 2.5 mg Admin: 07/06/18 19:42 Dose: 2.5 mg Albuterol (Ventolin Hfa) 2 puff INH Q4H PRN PRN Reason: Shortness Of Breath Albuterol/Ipratropium (Duoneb) 3 ml INH PRN PRN PRN Reason: Shortness Of Breath Aspirin (Aspirin Ec) 81 mg PO DAILY [facility] Last Admin: 07/07/18 09:18 Dose: 81 mg Atorvastatin Calcium (Lipitor) 20 mg PO BEDTIME [facility] Last Admin: 07/06/18 20:42 Dose: 20 mg Calcium Carbonate (Tums) 1,000 mg PO Q4HR PRN PRN Reason: Dyspepsia Last Admin: 07/07/18 03:05 Dose: 1,000 mg Furosemide (Lasix) 40 mg PO DAILY PRN PRN Reason: Shortness Of Breath Guaifenesin (Mucinex) 600 mg PO Q12H [facility] Last Admin: 07/07/18 05:22 Dose: 600 mg Admin: 07/06/18 18:24 Dose: 600 mg Fluconazole (Diflucan) 100 mg in 50 mls @ 100 mls/hr IV Q24H [facility] Last Infusion: 07/06/18 19:00 Dose: 100 mls/hr Admin: 07/06/18 18:23 Dose: 100 mls/hr Sodium Chloride (Normal Saline 0.9%) 250 mls @ 21 mls/hr IV Q24H PRN PRN Reason: Flush Last Admin: 07/06/18 18:28 Dose: 21 mls/hr Azithromycin 500 mg/ Dextrose 250 mls @ 250 mls/hr IV Q24H [facility] Last Infusion: 07/07/18 15:15 Dose: 0 mls/hr Admin: 07/07/18 13:40 Dose: 250 mls/hr Loratadine (Claritin) 10 mg PO DAILY [facility] Last Admin: 07/07/18 09:17 Dose: 10 mg Lorazepam (Ativan) 0.5 mg PO BID PRN PRN Reason: anxiety Metformin HCl (Glucophage Xr) 1,000 mg PO BID [facility] Last Admin: 07/07/18 09:17 Dose: 1,000 mg Admin: 07/06/18 20:42 Dose: 1,000 mg Methylprednisolone (Solu-Medrol 125 Mg Vial) 60 mg IV Q8H [facility] Last Admin: 07/07/18 09:18 Dose: 60 mg Admin: 07/06/18 23:49 Dose: 60 mg Admin: 07/06/18 18:24 Dose: 60 mg Multivitamins (Tab-A-Ha) 1 tab PO DAILY [facility] Last Admin: 07/07/18 09:17 Dose: 1 tab Fluticasone/Salmeterol (Advair 250/50 Diskus) 1 puff INH Q12H [facility] Last Admin: 07/07/18 05:22 Dose: 1 puff Admin: 07/06/18 18:23 Dose: 1 puff Sodium Chloride (Normal Saline 0.9% Flush) 10 ml IV PRN PRN PRN Reason: Flush Sodium Chloride (Normal Saline 0.9% Flush) 10 ml IV BID [facility] Last Admin: 07/07/18 09:17 Dose: 10 ml Admin: 07/06/18 20:44 Dose: 10 ml Tamsulosin HCl (Flomax) 0.4 mg PO DAILY [facility] Last Admin: 07/07/18 09:17 Dose: 0.4 mg Tiotropium [place] (Spiriva) 18 mcg INH DAILY [facility] Last Admin: 07/07/18 08:30 Dose: 18 mcg Vitamin D (Vitamin D3) 1,000 unit PO DAILY [facility] Last Admin: 07/07/18 09:17 Dose: 1,000 unit Discontinued Medications Albuterol (Ventolin) 2.5 mg INH NOW ONE Stop: 07/06/18 12:35 Last Admin: 07/06/18 12:37 Dose: 2.5 mg Albuterol/Ipratropium (Duoneb) 3 ml INH NOW ONE Stop: 07/06/18 12:34 Last Admin: 07/06/18 12:36 Dose: 3 ml Sodium Chloride (Normal Saline 0.9%) 1,000 mls @ 150 mls/hr IV CONT [facility] Last Infusion: 07/06/18 15:18 Dose: 0 mls/hr Admin: 07/06/18 13:01 Dose: 150 mls/hr Levofloxacin (Levaquin) 750 mg in 150 mls @ 100 mls/hr IV NOW ONE Stop: 07/06/18 16:58 Last Admin: 07/06/18 15:38 Dose: 100 mls/hr Methylprednisolone (Solu-Medrol 125 Mg Vial) 125 mg IV NOW ONE Stop: 07/06/18 12:51 Last Admin: 07/06/18 13:01 Dose: 125 mg Vital Signs - 8 hr 07/07/18 13:01 07/07/18 15:15 Temperature 98.0 F Pulse Rate 101 H 95 H Respiratory Rate 18 20 Blood Pressure 141/70 H Pulse Oximetry 96 97 <Mar Sauer Shannon, DO - Last Filed: 07/07/18 16:37> Orders Ordered: ED Orders 07/07/18 13:36 EKG-12 Lead Routine Albuterol (Ventolin) 2.5 mg INH TID [facility] Last Admin: 07/07/18 13:00 Dose: 2.5 mg Admin: 07/07/18 08:29 Dose: 2.5 mg Admin: 07/06/18 19:42 Dose: 2.5 mg Albuterol (Ventolin Hfa) 2 puff INH Q4H PRN PRN Reason: Shortness Of Breath Albuterol/Ipratropium (Duoneb) 3 ml INH PRN PRN PRN Reason: Shortness Of Breath Aspirin (Aspirin Ec) 81 mg PO DAILY [facility] Last Admin: 07/07/18 09:18 Dose: 81 mg Atorvastatin Calcium (Lipitor) 20 mg PO BEDTIME [facility] Last Admin: 07/06/18 20:42 Dose: 20 mg Calcium Carbonate (Tums) 1,000 mg PO Q4HR PRN PRN Reason: Dyspepsia Last Admin: 07/07/18 03:05 Dose: 1,000 mg Furosemide (Lasix) 40 mg PO DAILY PRN PRN Reason: Shortness Of Breath Guaifenesin (Mucinex) 600 mg PO Q12H [facility] Last Admin: 07/07/18 05:22 Dose: 600 mg Admin: 07/06/18 18:24 Dose: 600 mg Fluconazole (Diflucan) 100 mg in 50 mls @ 100 mls/hr IV Q24H [facility] Last Infusion: 07/06/18 19:00 Dose: 100 mls/hr Admin: 07/06/18 18:23 Dose: 100 mls/hr Sodium Chloride (Normal Saline 0.9%) 250 mls @ 21 mls/hr IV Q24H PRN PRN Reason: Flush Last Admin: 07/06/18 18:28 Dose: 21 mls/hr Azithromycin 500 mg/ Dextrose 250 mls @ 250 mls/hr IV Q24H [facility] Last Infusion: 07/07/18 15:15 Dose: 0 mls/hr Admin: 07/07/18 13:40 Dose: 250 mls/hr Loratadine (Claritin) 10 mg PO DAILY [facility] Last Admin: 07/07/18 09:17 Dose: 10 mg Lorazepam (Ativan) 0.5 mg PO BID PRN PRN Reason: anxiety Metformin HCl (Glucophage Xr) 1,000 mg PO BID [facility] Last Admin: 07/07/18 09:17 Dose: 1,000 mg Admin: 07/06/18 20:42 Dose: 1,000 mg Methylprednisolone (Solu-Medrol 125 Mg Vial) 60 mg IV Q8H [facility] Last Admin: 07/07/18 09:18 Dose: 60 mg Admin: 07/06/18 23:49 Dose: 60 mg Admin: 07/06/18 18:24 Dose: 60 mg Multivitamins (Tab-A-Ha) 1 tab PO DAILY [facility] Last Admin: 07/07/18 09:17 Dose: 1 tab Fluticasone/Salmeterol (Advair 250/50 Diskus) 1 puff INH Q12H [facility] Last Admin: 07/07/18 05:22 Dose: 1 puff Admin: 07/06/18 18:23 Dose: 1 puff Sodium Chloride (Normal Saline 0.9% Flush) 10 ml IV PRN PRN PRN Reason: Flush Sodium Chloride (Normal Saline 0.9% Flush) 10 ml IV BID [facility] Last Admin: 07/07/18 09:17 Dose: 10 ml Admin: 07/06/18 20:44 Dose: 10 ml Tamsulosin HCl (Flomax) 0.4 mg PO DAILY [facility] Last Admin: 07/07/18 09:17 Dose: 0.4 mg Tiotropium [place] (Spiriva) 18 mcg INH DAILY [facility] Last Admin: 07/07/18 08:30 Dose: 18 mcg Vitamin D (Vitamin D3) 1,000 unit PO DAILY [facility] Last Admin: 07/07/18 09:17 Dose: 1,000 unit Discontinued Medications Albuterol (Ventolin) 2.5 mg INH NOW ONE Stop: 07/06/18 12:35 Last Admin: 07/06/18 12:37 Dose: 2.5 mg Albuterol/Ipratropium (Duoneb) 3 ml INH NOW ONE Stop: 07/06/18 12:34 Last Admin: 07/06/18 12:36 Dose: 3 ml Sodium Chloride (Normal Saline 0.9%) 1,000 mls @ 150 mls/hr IV CONT [facility] Last Infusion: 07/06/18 15:18 Dose: 0 mls/hr Admin: 07/06/18 13:01 Dose: 150 mls/hr Levofloxacin (Levaquin) 750 mg in 150 mls @ 100 mls/hr IV NOW ONE Stop: 07/06/18 16:58 Last Admin: 07/06/18 15:38 Dose: 100 mls/hr Methylprednisolone (Solu-Medrol 125 Mg Vial) 125 mg IV NOW ONE Stop: 07/06/18 12:51 Last Admin: 07/06/18 13:01 Dose: 125 mg Vital Signs - 8 hr 07/07/18 13:01 07/07/18 15:15 Temperature 98.0 F Pulse Rate 101 H 95 H Respiratory Rate 18 20 Blood Pressure 141/70 H Pulse Oximetry 96 97 MDM - SOB/Dyspnea <NISA Lewis - Last Filed: 07/06/18 22:07> Lab Data Result diagrams: 07/06/18 12:20 07/06/18 12:20 Lab Results 07/06/18 07/06/18 07/06/18 Range/Units 12:20 12:20 12:20 WBC 13.7 H (4.5-11.0) X10^3/uL RBC 4.01 L (4.5-5.9) X10^6/uL Hgb 12.0 L (13.5-17.5) g/dL Hct 36.0 L (41-53) % MCV 89.8 (80-100) fL MCH 29.9 (26-34) PG MCHC 33.3 (30-36) % RDW 15.1 H (11.6-14.8) % Plt Count 308 (150-400) X10^3/uL Neut % (Auto) 86.7 H (50-75) % Lymph % (Auto) 5.3 L (25-40) % [place] % (Auto) 7.1 (3-14) % Eos % (Auto) 0.6 L (2-4) % Baso % (Auto) 0.3 (0-2) % Neut # (Auto) 31118 H (5050-4948) /uL PT 12.1 (10.1-12.7) SECONDS INR 1.1 (0.9-1.3) ABG pH (7.35-7.45) ABG pCO2 (35-45) mmHg ABG pO2 (80-100) mmHg ABG HCO3 (22-26) mmol/L ABG Total CO2 (21-31) mmol/L ABG O2 Saturation (95-100) % ABG Base Excess (-2-2) mmol/L FiO2 Sodium 145 (137-145) mmol/L Potassium 4.5 (3.4-5.1) mmol/L Chloride 98 (98-107) mmol/L Carbon Dioxide 34 H (22-32) mmol/L BUN 15 (9-20) mg/dL Creatinine 0.50 L (0.66-1.25) mg/dL Estimated GFR > 60.0 (>60) mL/min BUN/Creatinine Ratio 30.0 H (6-22) Glucose 173 H (80-110) mg/dL Lactate (0.7-2.1) mmol/L Calcium 9.8 (8.4-10.2) mg/dL Total Bilirubin 0.2 (0.2-1.3) mg/dL AST 24 (17-59) IU/L ALT 15 L (21-72) IU/L Alkaline Phosphatase 75 (38-126) U/L Total Creatine Kinase < 20 L (55-170) U/L CK-MB (CK-2) TNP CK-MB (CK-2) Rel Index TNP Troponin I < 0.012 (0.01-0.034) ng/mL B-Natriuretic Peptide 35.0 (<100) Total Protein 7.5 (6.3-8.2) g/dL Albumin 4.2 (3.5-5.0) g/dL Globulin 3.3 (1.7-4.1) g/dL Albumin/Globulin Ratio 1.3 (1.0-2.8) Lipase 13 L (23-300) U/L Procalcitonin (<0.5) ng/mL Urine RBC (0-5/HPF) Urine WBC (0-5/HPF) Ur Squamous Epith Cells Calcium Oxalate Crystal (None) Amorphous Sediment Urine Bacteria (None) Urine Mucus (Negative) Ur Culture Indicated? Micro UA Comment 07/06/18 07/06/18 07/06/18 Range/Units 12:20 12:20 13:26 WBC (4.5-11.0) X10^3/uL RBC (4.5-5.9) X10^6/uL Hgb (13.5-17.5) g/dL Hct (41-53) % MCV (80-100) fL MCH (26-34) PG MCHC (30-36) % RDW (11.6-14.8) % Plt Count (150-400) X10^3/uL Neut % (Auto) (50-75) % Lymph % (Auto) (25-40) % [place] % (Auto) (3-14) % Eos % (Auto) (2-4) % Baso % (Auto) (0-2) % Neut # (Auto) (9502-2537) /uL PT (10.1-12.7) SECONDS INR (0.9-1.3) ABG pH 7.40 (7.35-7.45) ABG pCO2 47.5 H (35-45) mmHg ABG pO2 107 H (80-100) mmHg ABG HCO3 29 H (22-26) mmol/L ABG Total CO2 31 (21-31) mmol/L ABG O2 Saturation 98 (95-100) % ABG Base Excess 4.0 H (-2-2) mmol/L FiO2 0.21 Sodium (137-145) mmol/L Potassium (3.4-5.1) mmol/L Chloride (98-107) mmol/L Carbon Dioxide (22-32) mmol/L BUN (9-20) mg/dL Creatinine (0.66-1.25) mg/dL Estimated GFR (>60) mL/min BUN/Creatinine Ratio (6-22) Glucose (80-110) mg/dL Lactate 1.7 (0.7-2.1) mmol/L Calcium (8.4-10.2) mg/dL Total Bilirubin (0.2-1.3) mg/dL AST (17-59) IU/L ALT (21-72) IU/L Alkaline Phosphatase (38-126) U/L Total Creatine Kinase (55-170) U/L CK-MB (CK-2) CK-MB (CK-2) Rel Index Troponin I (0.01-0.034) ng/mL B-Natriuretic Peptide (<100) Total Protein (6.3-8.2) g/dL Albumin (3.5-5.0) g/dL Globulin (1.7-4.1) g/dL Albumin/Globulin Ratio (1.0-2.8) Lipase (23-300) U/L Procalcitonin < 0.05 (<0.5) ng/mL Urine RBC (0-5/HPF) Urine WBC (0-5/HPF) Ur Squamous Epith Cells Calcium Oxalate Crystal (None) Amorphous Sediment Urine Bacteria (None) Urine Mucus (Negative) Ur Culture Indicated? Micro UA Comment 07/06/18 Range/Units 13:41 WBC (4.5-11.0) X10^3/uL RBC (4.5-5.9) X10^6/uL Hgb (13.5-17.5) g/dL Hct (41-53) % MCV (80-100) fL MCH (26-34) PG MCHC (30-36) % RDW (11.6-14.8) % Plt Count (150-400) X10^3/uL Neut % (Auto) (50-75) % Lymph % (Auto) (25-40) % [place] % (Auto) (3-14) % Eos % (Auto) (2-4) % Baso % (Auto) (0-2) % Neut # (Auto) (4999-2522) /uL PT (10.1-12.7) SECONDS INR (0.9-1.3) ABG pH (7.35-7.45) ABG pCO2 (35-45) mmHg ABG pO2 (80-100) mmHg ABG HCO3 (22-26) mmol/L ABG Total CO2 (21-31) mmol/L ABG O2 Saturation (95-100) % ABG Base Excess (-2-2) mmol/L FiO2 Sodium (137-145) mmol/L Potassium (3.4-5.1) mmol/L Chloride (98-107) mmol/L Carbon Dioxide (22-32) mmol/L BUN (9-20) mg/dL Creatinine (0.66-1.25) mg/dL Estimated GFR (>60) mL/min BUN/Creatinine Ratio (6-22) Glucose (80-110) mg/dL Lactate (0.7-2.1) mmol/L Calcium (8.4-10.2) mg/dL Total Bilirubin (0.2-1.3) mg/dL AST (17-59) IU/L ALT (21-72) IU/L Alkaline Phosphatase (38-126) U/L Total Creatine Kinase (55-170) U/L CK-MB (CK-2) CK-MB (CK-2) Rel Index Troponin I (0.01-0.034) ng/mL B-Natriuretic Peptide (<100) Total Protein (6.3-8.2) g/dL Albumin (3.5-5.0) g/dL Globulin (1.7-4.1) g/dL Albumin/Globulin Ratio (1.0-2.8) Lipase (23-300) U/L Procalcitonin (<0.5) ng/mL Urine RBC 0-1/hpf (0-5/HPF) Urine WBC 5-10/hpf H (0-5/HPF) Ur Squamous Epith Cells 0-1 /hpf Calcium Oxalate Crystal Few H (None) Amorphous Sediment 1+ Urine Bacteria Many (>30) H (None) Urine Mucus 1+ H (Negative) Ur Culture Indicated? Specimen cultured Micro UA Comment Not Reportable Point of Care Testing Glucose POC 186 Urine Dip Bedside Urine Glucose 250 mg/dl Bedside Urine Bilirubin + 1 Bedside Urine Ketone - Negative Urine Specific [place] 1.020 Bedside Urine Occult Blood +/- Bedside Urine pH 6.0 Bedside Urine Protein + 30 Bedside Urine Urobilinogen - Negative Bedside Urine Nitrite - Negative Bedside Urine Leukocytes - Negative Esterase Imaging Data CT scan - chest: Radiologist's impression: [address] [address] [address] Scan Report Signed Patient: Chacorta Yanes LMR#: [id number] : 8Acct:[id number] Age/Sex: 67 / MDate of Service: 07/06/18 Loc: ED Accession Number: [id number] Procedure: CT angio chest PE protocol Ordering Provider: Jesus Martinez PROCEDURE: CT ANGIO CHEST PE PROTOCOL INDICATIONS: shortness of breath and tachypneic with chest pain TECHNIQUE: After the administration of intravenous contrast, 2 mm thick sections acquired from the pulmonary apices to the posterior costophrenic angles. 3-dimensional maximum intensity projection (MIP) coronal and sagittal reformats were then acquired through the thorax. For radiation dose reduction, the following was used: automated exposure control, adjustment of mA and/or kV according to patient size. COMPARISON: [facility], CT, CT ANGIO CHEST PE PROTOCOL, 05/01/2018, 22:45. FINDINGS: Image quality: Diagnostic. Pulmonary arteries: Pulmonary arteries are normal in size, and demonstrate no intraluminal filling defects to suggest central pulmonary embolism. Lungs and pleura: Extensive centrilobular emphysematous changes of the lungs are identified, similar to the prior exam. There is moderate apical consolidation again evident with a central area of cavitation. The cavitary portion measures approximately 3.2 x 1.8 cm (previously measuring 2.7 x 1.4 cm when remeasured in a similar fashion. A small nodule into this region of cavitation is present. Scattered tree in bud nodularity is seen within the left lower lobe. There is moderate consolidation within the posterior aspect of the right lower lobe, which has increased in the interim. There continue to be numerous scattered nodules throughout both lungs. No definitive lung mass is evident. Mediastinum: Heart size is normal, with a trace inferior right heart wall pericardial effusion. Thoracic aorta is normal in caliber and enhancement. There is aortic and coronary artery atherosclerosis. Esophagus is grossly unremarkable. There is a small hiatal hernia. There are moderate sized mediastinal lymph nodes present the largest is located at the level of the chet within the right tracheobronchial region, measuring up to 9 mm in short axis. No ziggy lymphadenopathy is evident. Bones and chest wall: No suspicious bony lesions. Ribs and thoracic spine appear intact throughout. Age-appropriate degenerative changes of the spine are present. Thyroid gland is not enlarged or adequately evaluated. There may be a small nodule in the inferior left thyroid lobe. No axillary or supraclavicular adenopathy. Abdomen: Included portions of the upper abdomen demonstrate a prominent superior bowel-containing ventral hernia, which is not completely included on this study. IMPRESSION: 1. No pulmonary emboli are evident. 2. Left upper lobe and right lower lobe consolidation has a similar distribution to the previous examination, but have increased in size since the prior exam. This appearance is highly suspicious for an infectious process, particularly given the area of cavitation within the left upper lobe (also increased slightly in the interim). An atypical fungal or mycobacterial infection is favored. A neoplastic process within the left upper lobe cannot be completely excluded. Superimposed scarring may be present. 3. Tree in bud nodularity within the left lower lobe has increased in the interim, also suspicious for atypical infection. 4. Reactive lymph nodes within the mediastinum. No ziggy lymphadenopathy. 5. Severe emphysematous changes within the lungs. 6. Small hiatal hernia. Dictated by: Collins Anderson M.D. on 07/06/2018 at 13:30 Approved by: Collins Anderson M.D. on 07/06/2018 at 13:42 ECG Data Interpretation: EKG shows sinus tachycardia with no ST elevation or depression. No ectopy. Ventricular rate of 111. Pr interval 134. QRS duration of 86. QTC 363. MDM Narrative Medical decision making narrative: due to chest pain shortness of breath and tachycardia PE protocol CT was obtained and was negative for PE. CT does show areas of concern to the left upper and right lower lobe showing consolidation that radiology called suspicious for mycobacterial or fungal in nature. CBC shows elevated white count. Procalcitonin and lactate were negative. Blood cultures are pending. He was given Solu-Medrol in the emergency room and a couple of neb treatments which helped his symptoms some. VBG shows respiratory acidosis that is metabolically compensated. he is given Levaquin in the emergency room. Discussed case with hospitalist Dr. martinez who accepted patient for further treatment and observation. patient is admitted to inpatient bai <Mar Ortega DO - Last Filed: 07/07/18 16:37> Lab Data Lab Results 07/06/18 07/06/18 07/06/18 Range/Units 12:20 12:20 12:20 WBC 13.7 H (4.5-11.0) X10^3/uL RBC 4.01 L (4.5-5.9) X10^6/uL Hgb 12.0 L (13.5-17.5) g/dL Hct 36.0 L (41-53) % MCV 89.8 (80-100) fL MCH 29.9 (26-34) PG MCHC 33.3 (30-36) % RDW 15.1 H (11.6-14.8) % Plt Count 308 (150-400) X10^3/uL Neut % (Auto) 86.7 H (50-75) % Lymph % (Auto) 5.3 L (25-40) % [place] % (Auto) 7.1 (3-14) % Eos % (Auto) 0.6 L (2-4) % Baso % (Auto) 0.3 (0-2) % Neut # (Auto) 36194 H (4211-1302) /uL PT 12.1 (10.1-12.7) SECONDS INR 1.1 (0.9-1.3) ABG pH (7.35-7.45) ABG pCO2 (35-45) mmHg ABG pO2 (80-100) mmHg ABG HCO3 (22-26) mmol/L ABG Total CO2 (21-31) mmol/L ABG O2 Saturation (95-100) % ABG Base Excess (-2-2) mmol/L FiO2 Sodium 145 (137-145) mmol/L Potassium 4.5 (3.4-5.1) mmol/L Chloride 98 (98-107) mmol/L Carbon Dioxide 34 H (22-32) mmol/L BUN 15 (9-20) mg/dL Creatinine 0.50 L (0.66-1.25) mg/dL Estimated GFR > 60.0 (>60) mL/min BUN/Creatinine Ratio 30.0 H (6-22) Glucose 173 H (80-110) mg/dL Lactate (0.7-2.1) mmol/L Calcium 9.8 (8.4-10.2) mg/dL Total Bilirubin 0.2 (0.2-1.3) mg/dL AST 24 (17-59) IU/L ALT 15 L (21-72) IU/L Alkaline Phosphatase 75 (38-126) U/L Total Creatine Kinase < 20 L (55-170) U/L CK-MB (CK-2) TNP CK-MB (CK-2) Rel Index TNP Troponin I < 0.012 (0.01-0.034) ng/mL B-Natriuretic Peptide 35.0 (<100) Total Protein 7.5 (6.3-8.2) g/dL Albumin 4.2 (3.5-5.0) g/dL Globulin 3.3 (1.7-4.1) g/dL Albumin/Globulin Ratio 1.3 (1.0-2.8) Lipase 13 L (23-300) U/L Procalcitonin (<0.5) ng/mL Urine RBC (0-5/HPF) Urine WBC (0-5/HPF) Ur Squamous Epith Cells Calcium Oxalate Crystal (None) Amorphous Sediment Urine Bacteria (None) Urine Mucus (Negative) Ur Culture Indicated? Micro UA Comment 07/06/18 07/06/18 07/06/18 Range/Units 12:20 12:20 13:26 WBC (4.5-11.0) X10^3/uL RBC (4.5-5.9) X10^6/uL Hgb (13.5-17.5) g/dL Hct (41-53) % MCV (80-100) fL MCH (26-34) PG MCHC (30-36) % RDW (11.6-14.8) % Plt Count (150-400) X10^3/uL Neut % (Auto) (50-75) % Lymph % (Auto) (25-40) % [place] % (Auto) (3-14) % Eos % (Auto) (2-4) % Baso % (Auto) (0-2) % Neut # (Auto) (2742-1607) /uL PT (10.1-12.7) SECONDS INR (0.9-1.3) ABG pH 7.40 (7.35-7.45) ABG pCO2 47.5 H (35-45) mmHg ABG pO2 107 H (80-100) mmHg ABG HCO3 29 H (22-26) mmol/L ABG Total CO2 31 (21-31) mmol/L ABG O2 Saturation 98 (95-100) % ABG Base Excess 4.0 H (-2-2) mmol/L FiO2 0.21 Sodium (137-145) mmol/L Potassium (3.4-5.1) mmol/L Chloride (98-107) mmol/L Carbon Dioxide (22-32) mmol/L BUN (9-20) mg/dL Creatinine (0.66-1.25) mg/dL Estimated GFR (>60) mL/min BUN/Creatinine Ratio (6-22) Glucose (80-110) mg/dL Lactate 1.7 (0.7-2.1) mmol/L Calcium (8.4-10.2) mg/dL Total Bilirubin (0.2-1.3) mg/dL AST (17-59) IU/L ALT (21-72) IU/L Alkaline Phosphatase (38-126) U/L Total Creatine Kinase (55-170) U/L CK-MB (CK-2) CK-MB (CK-2) Rel Index Troponin I (0.01-0.034) ng/mL B-Natriuretic Peptide (<100) Total Protein (6.3-8.2) g/dL Albumin (3.5-5.0) g/dL Globulin (1.7-4.1) g/dL Albumin/Globulin Ratio (1.0-2.8) Lipase (23-300) U/L Procalcitonin < 0.05 (<0.5) ng/mL Urine RBC (0-5/HPF) Urine WBC (0-5/HPF) Ur Squamous Epith Cells Calcium Oxalate Crystal (None) Amorphous Sediment Urine Bacteria (None) Urine Mucus (Negative) Ur Culture Indicated? Micro UA Comment 07/06/18 Range/Units 13:41 WBC (4.5-11.0) X10^3/uL RBC (4.5-5.9) X10^6/uL Hgb (13.5-17.5) g/dL Hct (41-53) % MCV (80-100) fL MCH (26-34) PG MCHC (30-36) % RDW (11.6-14.8) % Plt Count (150-400) X10^3/uL Neut % (Auto) (50-75) % Lymph % (Auto) (25-40) % [place] % (Auto) (3-14) % Eos % (Auto) (2-4) % Baso % (Auto) (0-2) % Neut # (Auto) (6762-6429) /uL PT (10.1-12.7) SECONDS INR (0.9-1.3) ABG pH (7.35-7.45) ABG pCO2 (35-45) mmHg ABG pO2 (80-100) mmHg ABG HCO3 (22-26) mmol/L ABG Total CO2 (21-31) mmol/L ABG O2 Saturation (95-100) % ABG Base Excess (-2-2) mmol/L FiO2 Sodium (137-145) mmol/L Potassium (3.4-5.1) mmol/L Chloride (98-107) mmol/L Carbon Dioxide (22-32) mmol/L BUN (9-20) mg/dL Creatinine (0.66-1.25) mg/dL Estimated GFR (>60) mL/min BUN/Creatinine Ratio (6-22) Glucose (80-110) mg/dL Lactate (0.7-2.1) mmol/L Calcium (8.4-10.2) mg/dL Total Bilirubin (0.2-1.3) mg/dL AST (17-59) IU/L ALT (21-72) IU/L Alkaline Phosphatase (38-126) U/L Total Creatine Kinase (55-170) U/L CK-MB (CK-2) CK-MB (CK-2) Rel Index Troponin I (0.01-0.034) ng/mL B-Natriuretic Peptide (<100) Total Protein (6.3-8.2) g/dL Albumin (3.5-5.0) g/dL Globulin (1.7-4.1) g/dL Albumin/Globulin Ratio (1.0-2.8) Lipase (23-300) U/L Procalcitonin (<0.5) ng/mL Urine RBC 0-1/hpf (0-5/HPF) Urine WBC 5-10/hpf H (0-5/HPF) Ur Squamous Epith Cells 0-1 /hpf Calcium Oxalate Crystal Few H (None) Amorphous Sediment 1+ Urine Bacteria Many (>30) H (None) Urine Mucus 1+ H (Negative) Ur Culture Indicated? Specimen cultured Micro UA Comment Not Reportable Point of Care Testing Glucose POC 186 Urine Dip Bedside Urine Glucose 250 mg/dl Bedside Urine Bilirubin + 1 Bedside Urine Ketone - Negative Urine Specific [place] 1.020 Bedside Urine Occult Blood +/- Bedside Urine pH 6.0 Bedside Urine Protein + 30 Bedside Urine Urobilinogen - Negative Bedside Urine Nitrite - Negative Bedside Urine Leukocytes - Negative Esterase Discharge Plan Departure Patient Disposition: Admitted As Inpatient Clinical Impression: COPD with acute exacerbation, Pneumonia Discharge Date/Time: 07/06/18 16:26 Interventions: ED Discharge Assessment Last Done: 07/06/18 16:26 Admit Date/Time: 07/06/18 15:42 Admit Provider: Amy Herrera Aashish <Mar Ortega DO - Last Filed: 07/07/18 16:37> Cosign ED Attending Cosignature Attestation: I was immediately available in the department for consultation. This documentation has been reviewed and I agree with assessment and plan. Supervised by Mar Ortega DO
[2018-07-06] MEDS: ALBUTEROL/IPRATROPIUM 3 ML AMPUL INH (12:36)
[2018-07-06] MEDS: ALBUTEROL 2.5 MG/3 ML NEB (ADULT) INH ×2 (12:37→19:42)
--- NOTE | 2018-07-06 12:52 | DI.CT.S_ITS ---
PROCEDURE: CT ANGIO CHEST PE PROTOCOL INDICATIONS: shortness of breath and tachypneic with chest pain TECHNIQUE: After the administration of intravenous contrast, 2 mm thick sections acquired from the pulmonary apices to the posterior costophrenic angles. 3-dimensional maximum intensity projection (MIP) coronal and sagittal reformats were then acquired through the thorax. For radiation dose reduction, the following was used: automated exposure control, adjustment of mA and/or kV according to patient size. COMPARISON: [facility], CT, CT ANGIO CHEST PE PROTOCOL, 05/01/2018, 22:45. FINDINGS: Image quality: Diagnostic. Pulmonary arteries: Pulmonary arteries are normal in size, and demonstrate no intraluminal filling defects to suggest central pulmonary embolism. Lungs and pleura: Extensive centrilobular emphysematous changes of the lungs are identified, similar to the prior exam. There is moderate apical consolidation again evident with a central area of cavitation. The cavitary portion measures approximately 3.2 x 1.8 cm (previously measuring 2.7 x 1.4 cm when remeasured in a similar fashion. A small nodule into this region of cavitation is present. Scattered tree in bud nodularity is seen within the left lower lobe. There is moderate consolidation within the posterior aspect of the right lower lobe, which has increased in the interim. There continue to be numerous scattered nodules throughout both lungs. No definitive lung mass is evident. Mediastinum: Heart size is normal, with a trace inferior right heart wall pericardial effusion. Thoracic aorta is normal in caliber and enhancement. There is aortic and coronary artery atherosclerosis. Esophagus is grossly unremarkable. There is a small hiatal hernia. There are moderate sized mediastinal lymph nodes present the largest is located at the level of the chet within the right tracheobronchial region, measuring up to 9 mm in short axis. No ziggy lymphadenopathy is evident. Bones and chest wall: No suspicious bony lesions. Ribs and thoracic spine appear intact throughout. Age-appropriate degenerative changes of the spine are present. Thyroid gland is not enlarged or adequately evaluated. There may be a small nodule in the inferior left thyroid lobe. No axillary or supraclavicular adenopathy. Abdomen: Included portions of the upper abdomen demonstrate a prominent superior bowel-containing ventral hernia, which is not completely included on this study. IMPRESSION: 1. No pulmonary emboli are evident. 2. Left upper lobe and right lower lobe consolidation has a similar distribution to the previous examination, but have increased in size since the prior exam. This appearance is highly suspicious for an infectious process, particularly given the area of cavitation within the left upper lobe (also increased slightly in the interim). An atypical fungal or mycobacterial infection is favored. A neoplastic process within the left upper lobe cannot be completely excluded. Superimposed scarring may be present. 3. Tree in bud nodularity within the left lower lobe has increased in the interim, also suspicious for atypical infection. 4. Reactive lymph nodes within the mediastinum. No ziggy lymphadenopathy. 5. Severe emphysematous changes within the lungs. 6. Small hiatal hernia. Dictated by: Collins Anderson M.D. on 07/06/2018 at 13:30 Approved by: Collins Anderson M.D. on 07/06/2018 at 13:42
[2018-07-06 12:59] LABS: Add Manual Diff / Slide Review NO; Basophils Percent Auto 0.3 % (0-2); Eosinophils Percent Auto 0.6 % (2-4); Lymphocytes Percent Auto 5.3 % (25-40); Mean Corpuscular HGB Conc 33.3 % (30-36); Mean Corpuscular Hemoglobin 29.9 PG (26-34); Mean Corpuscular Volume 89.8 fL (80-100); Monocytes Percent Auto 7.1 % (3-14); Neutrophils Absolute Auto 11900 /uL (3000-5900); Neutrophils Percent Auto 86.7 % (50-75); Platelet Count 308 X10^3/uL (150-400); Red Blood Cell Count 4.01 X10^6/uL (4.5-5.9); Red Cell Distribution Width 15.1 % (11.6-14.8); White Blood Cell Count 13.7 X10^3/uL (4.5-11.0)
[2018-07-06 13:00] LABS: INR 1.1 (0.9-1.3); Prothrombin Time 12.1 SECONDS (10.1-12.7)
[2018-07-06] MEDS: SODIUM CHLORIDE 0.9% 1,000 ML 150 ML IV (13:01)
[2018-07-06] MEDS: methylPREDNISolone 125 MG/2 ML VIAL IV (13:01)
[2018-07-06 13:04] LABS: Alanine Aminotransferase 15 IU/L (21-72); Albumin 4.2 g/dL (3.5-5.0); Albumin Globulin Ratio 1.3 (1.0-2.8); Alkaline Phosphatase 75 U/L (38-126); Aspartate Aminotransferase 24 IU/L (17-59); Bilirubin Total 0.2 mg/dL (0.2-1.3); Blood Urea Nitrogen 15 mg/dL (9-20); Calcium 9.8 mg/dL (8.4-10.2); Carbon Dioxide 34 mmol/L (22-32); Chloride 98 mmol/L (98-107); Creatine Kinase < 20 U/L (55-170); Estimated Glomerular Filt Rate > 60.0 mL/min (>60); Globulin 3.3 g/dL (1.7-4.1); Glucose 173 mg/dL (80-110); HEMOLYSIS < 15 (0-50); Lipase 13 U/L (23-300); Potassium 4.5 mmol/L (3.4-5.1); Sodium 145 mmol/L (137-145); Total Protein 7.5 g/dL (6.3-8.2)
[2018-07-06 13:09] LABS: Lactate (Lactic Acid) 1.7 mmol/L (0.7-2.1)
[2018-07-06 13:20] LABS: Troponin I < 0.012 ng/mL (0.01-0.034)
[2018-07-06 13:58] LABS: Amorphous Sediment Urine 1+; RBC Urine 0-1/HPF (0-5/HPF); Squamous Epithelial Cell Urine 0-1 /HPF; WBC Urine 5-10/HPF (0-5/HPF)
[2018-07-06 13:59] LABS: Bacteria Urine Many (>30); Calcium Oxalate Crystals Urine Few; Culture Indicated Urine Specimen Cultured; Mucus Urine 1+ (Negative)
[2018-07-06 14:09] LABS: Procalcitonin < 0.05 ng/mL (<0.5)
[2018-07-06 14:17] LABS: HCO3 ABG 29 mmol/L (22-26); PCO2 ABG 47.5 mmHg (35-45); PO2 ABG 107 mmHg (80-100); TCO2 ABG 31 mmol/L (21-31)
[2018-07-06 14:18] LABS: Fractionated Inspired Oxygen 0.21; Oxygen Saturation ABG 98 % (95-100)
[2018-07-06] MEDS: levoFLOXacin 750 MG/150 ML PIGGYBACK 100 MG IV (15:38)
--- NOTE | 2018-07-06 16:11 | PM.HP.1 ---
History of Present Illness Date Patient Seen: 07/06/18 Chief complaint: trouble breathing Narrative: This is a 67-year-old male with end-stage COPD who comes in with acute onset of increasing dyspnea/hypoxia starting at midnight. There is no change in his coughing pattern. He is on 3 L nasal cannula at home but is now requiring 6 L. He understands that his disease is progressing in an inevitable fashion. He has not smoked since 2002. He does take prednisone daily at home. His chest x-ray has a very concerning pattern for atypical/fungal pneumonia. He has been taking his COPD medicines in a regular fashion. Left upper lobe and right lower lobe consolidation has a similar distribution to the previous examination, but have increased in size since the prior exam. This appearance is highly suspicious for an infectious process, particularly given the area of cavitation within the left upper lobe (also increased slightly in the interim). An atypical fungal or mycobacterial infection is favored. A neoplastic process within the left upper lobe cannot be completely excluded. Superimposed scarring may be present. 3. Tree in bud nodularity within the left lower lobe has increased in the interim, also suspicious for atypical infection. Patient History Medical History Anxiety (Chronic Unknown) Peripheral vascular disease (Chronic Unknown) Hx of small bowel obstruction (Resolved 03/2015) Hyperlipemia (Chronic Unknown) Chronic respiratory failure with hypoxia (Chronic Unknown) Nontuberculous mycobacterial infection (Chronic 2014) Coronary artery disease (Chronic Unknown) History of colon cancer (Resolved ~2010) BPH (benign prostatic hyperplasia) (Chronic Unknown) COPD (chronic obstructive pulmonary disease) (Chronic) Dyspnea (Chronic) COPD (chronic obstructive pulmonary disease) (Chronic Unknown) Diabetes (Chronic Unknown) COPD (chronic obstructive pulmonary disease) (Inactive) Dependent edema (Inactive) Surgical History H/O cardiac catheterization (Resolved 2010) S/P small bowel resection (Resolved 03/2015) Hx of hernia repair (Resolved 2008) S/P colon resection (Resolved 2010) Hx of cataract surgery (Resolved 2014) Family & Social History Social History: household members spouse Safety & Behavioral: Feels Safe in Current Yes Environment Tobacco & Substance use: Smoking Status Former smoker alcohol intake frequency 0-2 drinks per day Substance Use Type does not use Meds Home Medications Medication Instructions Recorded Confirmed Type cholecalciferol (vitamin D3) 1,000 unit PO QDAY #0 02/07/17 07/06/18 History [Vitamin D3] guaifenesin [Mucinex] 600 mg PO Q12H #0 02/07/17 07/06/18 History multivitamin [Multiple Vitamins] 1 tab PO DAILY #0 02/07/17 07/06/18 History albuterol sulfate [Proventil HFA] 2 puff INH Q4H PRN #0 02/08/17 07/06/18 History tiotropium bromide [Spiriva with 1 puff INH DAILY #0 08/03/17 07/06/18 History HandiHaler] Spacer: Inhaler Spacer Device 1 ea INHALATION DIRECTED 01/26/18 07/06/18 History albuterol sulfate 3 ml INHALATION TID 01/26/18 07/06/18 History aspirin 81 mg PO DAILY 01/26/18 07/06/18 History fluticasone-salmeterol [Advair 1 inh INHALATION Q12H 01/26/18 07/06/18 History Diskus] ipratropium-albuterol 1 dose INHALATION PRN PRN 01/26/18 07/06/18 History loratadine 10 mg PO DAILY 01/26/18 07/06/18 History lorazepam 0.5 mg tablet 0.5 mg PO BID PRN #60 tab 04/06/18 07/06/18 Rx tobramycin with nebulizer 300 mg INHALATION DAILY 05/01/18 07/06/18 History prednisone 20 mg PO BID #20 tab 05/07/18 07/06/18 Rx food supplement, lactose-reduced See Label Instructions .ROUTE 05/22/18 07/06/18 Rx oral liquid .COMPLEX #2832 ml furosemide 40 mg PO DAILY PRN 05/26/18 07/06/18 History metformin ER 500 mg 1,000 mg PO BID #180 tab 06/21/18 07/06/18 Rx tablet,extended release 24 hr atorvastatin [Lipitor] 20 mg PO BEDTIME 07/06/18 07/06/18 History tamsulosin [Flomax] 0.4 mg PO DAILY 07/06/18 07/06/18 History Allergies Allergy/AdvReac Type Severity Reaction Status Date / Time felodipine [FELODIPINE] Allergy Intermediate SWELLING Verified 06/12/18 10:57 Review of Systems Review of Systems Positive for shortness of breath and chronic coughing. Negative for bleeding, nausea, vomiting, abdominal pain, rashes, seizures, headaches, joint pain, new allergies, difficulty speaking. Exam Vital Signs (past 8 hours): - 07/06/18 11:54 07/06/18 11:58 07/06/18 12:00 Temperature 98.1 F Pulse Rate 115 H 110 H 110 H Respiratory Rate 28 H 30 H 31 H Blood Pressure 161/69 H Blood Pressure [Left Arm] 155/95 H Pulse Oximetry 99 96 98 07/06/18 13:00 07/06/18 14:00 07/06/18 15:00 Temperature Pulse Rate 102 H 100 H 90 Respiratory Rate 26 H 25 H 24 Blood Pressure Blood Pressure [Left Arm] 128/55 L 123/94 H 128/51 L Pulse Oximetry 100 100 99 07/06/18 16:00 Temperature Pulse Rate 89 Respiratory Rate 22 Blood Pressure Blood Pressure [Left Arm] 141/55 H Pulse Oximetry 99 Oxygen Delivery Method Nasal Cannula Oxygen Flow Rate 3 Narrative Exam Narrative: Alert and oriented x3. He appears to be in moderate distress from his COPD respiratory failure. Pupils are equally round and reactive to light and accommodation. Extraocular muscles are intact. Sclerae are pink and nonicteric. Throat looks normal. No lymph nodes are felt head, neck, supraclavicular area. Lungs with diminished air flow bilaterally but no crackles or wheezes heard. Heart rate is regular rate and rhythm without murmur. Abdomen is soft bowel sounds are positive, nontender, no organomegaly. Extremities have no ankle edema. Skin has no rash or jaundice. Neuro exam. Cranial nerves 2-12 tested intact. Motor function is 5/5 throughout. DTRs are normal. He is able to balance. Objective Labs Result Diagrams: 07/06/18 12:20 07/06/18 12:20 Labs: Laboratory Results - last 24 hr 07/06/18 07/06/18 07/06/18 12:20 12:20 12:20 WBC 13.7 H RBC 4.01 L Hgb 12.0 L Hct 36.0 L MCV 89.8 MCH 29.9 MCHC 33.3 RDW 15.1 H Plt Count 308 Neut % (Auto) 86.7 H Lymph % (Auto) 5.3 L [place] % (Auto) 7.1 Eos % (Auto) 0.6 L Baso % (Auto) 0.3 Neut # (Auto) 75571 H PT 12.1 INR 1.1 ABG pH ABG pCO2 ABG pO2 ABG HCO3 ABG Total CO2 ABG O2 Saturation ABG Base Excess FiO2 Sodium 145 Potassium 4.5 Chloride 98 Carbon Dioxide 34 H BUN 15 Creatinine 0.50 L Estimated GFR > 60.0 BUN/Creatinine Ratio 30.0 H Glucose 173 H Lactate Calcium 9.8 Total Bilirubin 0.2 AST 24 ALT 15 L Alkaline Phosphatase 75 Total Creatine Kinase < 20 L CK-MB (CK-2) TNP CK-MB (CK-2) Rel Index TNP Troponin I < 0.012 B-Natriuretic Peptide 35.0 Total Protein 7.5 Albumin 4.2 Globulin 3.3 Albumin/Globulin Ratio 1.3 Lipase 13 L Procalcitonin Urine RBC Urine WBC Ur Squamous Epith Cells Calcium Oxalate Crystal Amorphous Sediment Urine Bacteria Urine Mucus Ur Culture Indicated? Micro UA Comment 07/06/18 07/06/18 07/06/18 12:20 12:20 13:26 WBC RBC Hgb Hct MCV MCH MCHC RDW Plt Count Neut % (Auto) Lymph % (Auto) [place] % (Auto) Eos % (Auto) Baso % (Auto) Neut # (Auto) PT INR ABG pH 7.40 ABG pCO2 47.5 H ABG pO2 107 H ABG HCO3 29 H ABG Total CO2 31 ABG O2 Saturation 98 ABG Base Excess 4.0 H FiO2 0.21 Sodium Potassium Chloride Carbon Dioxide BUN Creatinine Estimated GFR BUN/Creatinine Ratio Glucose Lactate 1.7 Calcium Total Bilirubin AST ALT Alkaline Phosphatase Total Creatine Kinase CK-MB (CK-2) CK-MB (CK-2) Rel Index Troponin I B-Natriuretic Peptide Total Protein Albumin Globulin Albumin/Globulin Ratio Lipase Procalcitonin < 0.05 Urine RBC Urine WBC Ur Squamous Epith Cells Calcium Oxalate Crystal Amorphous Sediment Urine Bacteria Urine Mucus Ur Culture Indicated? Micro UA Comment 07/06/18 13:41 WBC RBC Hgb Hct MCV MCH MCHC RDW Plt Count Neut % (Auto) Lymph % (Auto) [place] % (Auto) Eos % (Auto) Baso % (Auto) Neut # (Auto) PT INR ABG pH ABG pCO2 ABG pO2 ABG HCO3 ABG Total CO2 ABG O2 Saturation ABG Base Excess FiO2 Sodium Potassium Chloride Carbon Dioxide BUN Creatinine Estimated GFR BUN/Creatinine Ratio Glucose Lactate Calcium Total Bilirubin AST ALT Alkaline Phosphatase Total Creatine Kinase CK-MB (CK-2) CK-MB (CK-2) Rel Index Troponin I B-Natriuretic Peptide Total Protein Albumin Globulin Albumin/Globulin Ratio Lipase Procalcitonin Urine RBC 0-1/hpf Urine WBC 5-10/hpf H Ur Squamous Epith Cells 0-1 /hpf Calcium Oxalate Crystal Few H Amorphous Sediment 1+ Urine Bacteria Many (>30) H Urine Mucus 1+ H Ur Culture Indicated? Specimen cultured Micro UA Comment Not Reportable Assessment & Plan (1) Acute and chronic respiratory failure with hypoxia: Problem details: Patient has chronic hypoxic respiratory failure. He presents with abrupt onset shortness of breath. He will be treated with steroids, oxygen, nebulizers, and antibiotics Will add bipap if needed Current visit: No Status: Acute (2) Type 2 diabetes mellitus: Problem details: Metformin will be continued, patient will be placed on basal bolus insulin. Given high dose steroids he will likely need additional coverage Current visit: No Status: Chronic (3) Anxiety: Problem details: will continue prn ativan Current visit: No Status: Chronic (4) BPH (benign prostatic hyperplasia): Current visit: No Status: Chronic Plan: Assessment/Plan Narrative: COPD Exacerbation - continue Solu-Medrol, beta agonist therapy and increased oxygen dosing. - continue respiratory therapy attention. Possible Fungal Pneumonia - begin Diflucan and continue on IV antibiotic therapy. He received a dose of Levaquin and that will likely be adjusted in the morning. - consider referral to outside hospital were pulmonology can evaluate this. His current outpatient [facility] at [facility] - Dr. Moore. Left upper lobe and right lower lobe consolidation has a similar distribution to the previous examination, but have increased in size since the prior exam. This appearance is highly suspicious for an infectious process, particularly given the area of cavitation within the left upper lobe (also increased slightly in the interim). An atypical fungal or mycobacterial infection is favored. A neoplastic process within the left upper lobe cannot be completely excluded. Superimposed scarring may be present. 3. Tree in bud nodularity within the left lower lobe has increased in the interim, also suspicious for atypical infection. Hyperlipidemia - Continue Atorvastatin
[2018-07-06] MEDS: FLUTICASONE/SALMETEROL 250/50 14 PUFF DISKUS INH (18:23)
[2018-07-06] MEDS: FLUCONAZOLE 100 MG/50 ML PIGGYBACK IV (18:23)
[2018-07-06] MEDS: methylPREDNISolone 125 MG/2 ML VIAL 60 MG IV ×2 (18:24→23:49)
[2018-07-06] MEDS: guaiFENesin ER 600 MG TAB PO (18:24)
[2018-07-06] MEDS: SODIUM CHLORIDE 0.9% 250 ML 21 ML IV (18:28)
[2018-07-06] MEDS: METFORMIN XR 500 MG TABLET 1000 MG PO (20:42)
[2018-07-06] MEDS: ATORVASTATIN 20 MG TABLET PO (20:42)
[2018-07-06] MEDS: SODIUM CHLORIDE 0.9% FLUSH 10 ML IV (20:44)
--- NOTE | 2018-07-06 22:57 | PC.NURSE ---
ADMIT Received pt at approximately 1650 via [employer], accompanied by ED RN. A&O, pleasant and cooperative. pt able to stand-pivot transfer to bed with 1P min assist. noted pt to be SOB with activity and mildly at rest. breath sounds with rhonchi/coarse crackles throughout. pt on 3L O2 (baseline at home) sats >92%. pt also with intermittent cough (chronic). denies pain. tele monitoring maintained. oriented to room. call light within reach.
[2018-07-07] VITALS (8 sets, daily range): BP systolic 137–151; BP diastolic 58–77; PULSE 83–101; RESP 18–24; TEMP 36.3–36.7; O2SAT 92–98
[2018-07-07] MEDS: CALCIUM CARBONATE 500 MG TAB 1000 MG PO ×2 (03:05→20:30)
--- NOTE | 2018-07-07 04:36 | PC.NURSE ---
Pt VSS, A and O x 4. Pt continues to have SOB with any exertion at all, and congested productive cough. LS = bilateral exp wheezes and some rhonchi on the L. He deines pain but did c/o of indigestion and was given 1000 mg TUMS with good relief. Denies nausea.
[2018-07-07] MEDS: FLUTICASONE/SALMETEROL 250/50 14 PUFF DISKUS INH ×2 (05:22→17:08)
[2018-07-07] MEDS: guaiFENesin ER 600 MG TAB PO ×2 (05:22→17:08)
[2018-07-07] MEDS: ALBUTEROL 2.5 MG/3 ML NEB (ADULT) INH ×3 (08:29→19:13)
[2018-07-07] MEDS: TIOTROPIUM BROMIDE 18 MCG INHALER INH (08:30)
[2018-07-07] MEDS: LORATADINE 10 MG TABLET PO (09:17)
[2018-07-07] MEDS: TAMSULOSIN 0.4 MG CAPSULE PO (09:17)
[2018-07-07] MEDS: MULTIVITAMIN 1 TABLET 1 TAB PO (09:17)
[2018-07-07] MEDS: METFORMIN XR 500 MG TABLET 1000 MG PO ×2 (09:17→20:36)
[2018-07-07] MEDS: SODIUM CHLORIDE 0.9% FLUSH 10 ML IV ×3 (09:17→20:32)
[2018-07-07] MEDS: CHOLECALCIFEROL (VITAMIN D3) 1,000 UNIT TABLET 1000 UNIT PO (09:17)
[2018-07-07] MEDS: ASPIRIN EC 81 MG TABLET PO (09:18)
[2018-07-07] MEDS: methylPREDNISolone 125 MG/2 ML VIAL 60 MG IV ×2 (09:18→17:08)
--- NOTE | 2018-07-07 11:48 | P.PN_ITS ---
Subjective Date Patient Seen: 07/07/18 Interval history: His breathing appears to be improved, with less effort and definitely a more rested appearance today. He is seen today to follow-up his COPD exacerbation and acute respiratory failure. Exam Vital Signs (past 8 hours): - 07/07/18 04:40 07/07/18 08:00 07/07/18 08:33 Temperature 97.4 F L 97.6 F Pulse Rate 93 H 84 100 H Respiratory Rate 22 24 18 Blood Pressure 151/77 H 143/71 H Pulse Oximetry 95 98 97 Fraction of Inspired Oxygen 32 Oxygen Delivery Method Nasal Cannula Oxygen Flow Rate 3 Narrative Exam Narrative: He is alert and oriented x3, in no apparent distress. Heart is regular rate and rhythm without murmur. Lungs have diminished air flow bilaterally with minimal wheezing. Extremities have no ankle edema. Abdomen. There is a large ventral hernia with hernia brace wrap in place. Objective Labs Result Diagrams: 07/06/18 12:20 07/06/18 12:20 Labs: Laboratory Results - last 24 hr 07/06/18 07/06/18 07/06/18 12:20 12:20 12:20 WBC 13.7 H RBC 4.01 L Hgb 12.0 L Hct 36.0 L MCV 89.8 MCH 29.9 MCHC 33.3 RDW 15.1 H Plt Count 308 Neut % (Auto) 86.7 H Lymph % (Auto) 5.3 L [place] % (Auto) 7.1 Eos % (Auto) 0.6 L Baso % (Auto) 0.3 Neut # (Auto) 70946 H PT 12.1 INR 1.1 ABG pH ABG pCO2 ABG pO2 ABG HCO3 ABG Total CO2 ABG O2 Saturation ABG Base Excess FiO2 Sodium 145 Potassium 4.5 Chloride 98 Carbon Dioxide 34 H BUN 15 Creatinine 0.50 L Estimated GFR > 60.0 BUN/Creatinine Ratio 30.0 H Glucose 173 H Lactate Calcium 9.8 Total Bilirubin 0.2 AST 24 ALT 15 L Alkaline Phosphatase 75 Total Creatine Kinase < 20 L CK-MB (CK-2) TNP CK-MB (CK-2) Rel Index TNP Troponin I < 0.012 B-Natriuretic Peptide 35.0 Total Protein 7.5 Albumin 4.2 Globulin 3.3 Albumin/Globulin Ratio 1.3 Lipase 13 L Procalcitonin Urine RBC Urine WBC Ur Squamous Epith Cells Calcium Oxalate Crystal Amorphous Sediment Urine Bacteria Urine Mucus Ur Culture Indicated? Micro UA Comment 07/06/18 07/06/18 07/06/18 12:20 12:20 13:26 WBC RBC Hgb Hct MCV MCH MCHC RDW Plt Count Neut % (Auto) Lymph % (Auto) [place] % (Auto) Eos % (Auto) Baso % (Auto) Neut # (Auto) PT INR ABG pH 7.40 ABG pCO2 47.5 H ABG pO2 107 H ABG HCO3 29 H ABG Total CO2 31 ABG O2 Saturation 98 ABG Base Excess 4.0 H FiO2 0.21 Sodium Potassium Chloride Carbon Dioxide BUN Creatinine Estimated GFR BUN/Creatinine Ratio Glucose Lactate 1.7 Calcium Total Bilirubin AST ALT Alkaline Phosphatase Total Creatine Kinase CK-MB (CK-2) CK-MB (CK-2) Rel Index Troponin I B-Natriuretic Peptide Total Protein Albumin Globulin Albumin/Globulin Ratio Lipase Procalcitonin < 0.05 Urine RBC Urine WBC Ur Squamous Epith Cells Calcium Oxalate Crystal Amorphous Sediment Urine Bacteria Urine Mucus Ur Culture Indicated? Micro UA Comment 07/06/18 13:41 WBC RBC Hgb Hct MCV MCH MCHC RDW Plt Count Neut % (Auto) Lymph % (Auto) [place] % (Auto) Eos % (Auto) Baso % (Auto) Neut # (Auto) PT INR ABG pH ABG pCO2 ABG pO2 ABG HCO3 ABG Total CO2 ABG O2 Saturation ABG Base Excess FiO2 Sodium Potassium Chloride Carbon Dioxide BUN Creatinine Estimated GFR BUN/Creatinine Ratio Glucose Lactate Calcium Total Bilirubin AST ALT Alkaline Phosphatase Total Creatine Kinase CK-MB (CK-2) CK-MB (CK-2) Rel Index Troponin I B-Natriuretic Peptide Total Protein Albumin Globulin Albumin/Globulin Ratio Lipase Procalcitonin Urine RBC 0-1/hpf Urine WBC 5-10/hpf H Ur Squamous Epith Cells 0-1 /hpf Calcium Oxalate Crystal Few H Amorphous Sediment 1+ Urine Bacteria Many (>30) H Urine Mucus 1+ H Ur Culture Indicated? Specimen cultured Micro UA Comment Not Reportable Assessment & Plan Plan: Assessment/Plan Narrative: (1) Acute and chronic respiratory failure with hypoxia: Problem details: Patient has chronic hypoxic respiratory failure. He presented with abrupt onset shortness of breath. He is on steroids, oxygen, nebulizers, and antibiotics. He has not needed BiPAP this time. Current visit: Status: Acute (2) Type 2 diabetes mellitus: Problem details: Metformin will be continued, patient continues on basal bolus insulin. Given high dose steroids he will likely need additional coverage Current visit: No Status: Chronic (3) Anxiety: Problem details: will continue prn ativan Current visit: No Status: Chronic (4) BPH (benign prostatic hyperplasia): Current visit: No Status: Chronic Plan: Assessment/Plan Narrative: COPD Exacerbation - continue Solu-Medrol, beta agonist therapy and increased oxygen dosing. - continue respiratory therapy attention. Possible Fungal Pneumonia - begin Diflucan and continue on IV antibiotic therapy. He received a dose of Levaquin initially which will be changed to azithromycin. This is for the possibility of an atypical infection. - consider referral to outside hospital were pulmonology can evaluate this. His current outpatient director social is at [facility] - Dr. Moore. Left upper lobe and right lower lobe consolidation has a similar distribution to the previous examination, but have increased in size since the prior exam. This appearance is highly suspicious for an infectious process, particularly given the area of cavitation within the left upper lobe (also increased slightly in the interim). An atypical fungal or mycobacterial infection is favored. A neoplastic process within the left upper lobe cannot be completely excluded. Superimposed scarring may be present. 3. Tree in bud nodularity within the left lower lobe has increased in the interim, also suspicious for atypical infection. Hyperlipidemia - Continue Atorvastatin Quality VTE Deep Vein Thrombosis/Pulmonary Embolism Present on Admission: No
[2018-07-07] MEDS: AZITHROMYCIN 500 MG in DEXTROSE 5% IN WATER 250 ML IV (13:40)
--- NOTE | 2018-07-07 14:20 | CM.DANOTE ---
Discharge Planning/Care Management DCP: assessment: case received, EMR reviewed and met with pt. Introduced self and role. Pt is a 67 year old male who admitted yesterday late afternoon to care of hospitalist team. Full dx and POC are in process with some consideration of a transfer to higher level of pulmonology care. Pt with acute exacerbation of his COPD and a ? of an atypical fungal pneumonia. PPC: Dr. Brenna Olivier Boiler Testing Technician: Dr. Moore Payer: Medicare and for Life Admission status: INPT: confirmed by FELICITAS Brown Specifics of home setting and support were discussed, see Template info below. Called [facility] to let them know pt had admitted to the hospital. If pt is able to dc home he will need resume home health orders and clinical updates to [facility]. Pt reports good support from his Gina and their grandson Dayden(15 years old) who lives with them. P: in process CM Discharge Assessment Start: 07/07/18 14:14 Freq: Status: Active Protocol: Document 07/07/18 14:14 ITV (Rec: 07/07/18 14:20 ITV [id number]) Discharge Planning Assessment Advance Directives? Yes: POLST Advance Directives on File Yes History Provided By Patient Medical Record Has Patient been admitted in last 30 No days? Comment last visist here was 05/01 to 05/07 and went home with [facility]. Is still open to same. Prior Living Arrangements House Household Members spouse family Comment 15 year old grandson lives with them and is very helpful Independent with ADL's Yes Is patient alert and oriented? Yes DME Already Rented / Owned FWW / Walker Comment uses 4ww as need be when I go outside, when I am in the kitchen helping to cook or emptying and loading coconut cooker. I can sit on it and it saves me some energy. pt is on home 02, 3 L [employer] V[employer] Patient/Family Preference Home with Home Health Comment Pt expects to be able to return home and to continue with [facility]. If patient plan is home with home health Yes: is open to [facility] : Has signed face to face form been Health completed? Whiteboard Updated in Patient Room with Yes name and ext. # of Train Starter Review Status In Process Next Review Type Continued Stay Review
--- NOTE | 2018-07-07 14:49 | PC.NURSE ---
Day Shift: Patient doing well this shift. Resting comfortably, denies pain this shift. Patient c/o shortness of breath with exertion to change clothes. Patient desated to 90% while changing clothes, patient had to sit on bed to recover oxygen saturation. Patient remains on 3L NC oxygen. Saline lock patent, IV antibiotics infusing at this time. Patient sleeping at this time, No acute distress.
[2018-07-07] MEDS: FLUCONAZOLE 100 MG/50 ML PIGGYBACK IV (17:08)
[2018-07-07] MEDS: SODIUM CHLORIDE 0.9% 250 ML 21 ML IV (17:08)
[2018-07-07] MEDS: ATORVASTATIN 20 MG TABLET PO (20:30)
[2018-07-08] MEDS: methylPREDNISolone 125 MG/2 ML VIAL 60 MG IV ×2 (01:41→09:15)
[2018-07-08 04:22] VITALS: PULSE 89; RESP 20; O2SAT 93
[2018-07-08] MEDS: FLUTICASONE/SALMETEROL 250/50 14 PUFF DISKUS INH (04:22)
[2018-07-08] MEDS: ALBUTEROL 2.5 MG/3 ML NEB (ADULT) INH ×2 (04:22→10:26)
[2018-07-08] MEDS: TIOTROPIUM BROMIDE 18 MCG INHALER INH (04:22)
[2018-07-08] MEDS: guaiFENesin ER 600 MG TAB PO (04:39)
[2018-07-08 04:40] VITALS: BP 150/75; PULSE 95; RESP 21; TEMP 36.4; O2SAT 95
--- NOTE | 2018-07-08 04:47 | PC.NURSE ---
Pt is A and O x 4, VSS, states he feels better today then yesterday and per report ambulated more as well. His O2 was not turned back on after respiratory tx and he stated he felt dizzy and became very panicked. It took patient 15 - 20 minutes at 98% 3L NC to feel comfortable again. LS are diminished and pt has productive frequent cough. SR regular.
[2018-07-08 07:30] VITALS: BP 124/69; PULSE 70; RESP 20; TEMP 36.5; O2SAT 99
[2018-07-08] MEDS: MULTIVITAMIN 1 TABLET 1 TAB PO (09:14)
[2018-07-08] MEDS: ASPIRIN EC 81 MG TABLET PO (09:14)
[2018-07-08] MEDS: CHOLECALCIFEROL (VITAMIN D3) 1,000 UNIT TABLET 1000 UNIT PO (09:14)
[2018-07-08] MEDS: LORATADINE 10 MG TABLET PO (09:14)
[2018-07-08] MEDS: METFORMIN XR 500 MG TABLET 1000 MG PO (09:14)
[2018-07-08] MEDS: TAMSULOSIN 0.4 MG CAPSULE PO (09:14)
[2018-07-08] MEDS: SODIUM CHLORIDE 0.9% FLUSH 10 ML IV (09:15)
[2018-07-08 09:20] VITALS: O2SAT 95
[2018-07-08 10:31] VITALS: PULSE 88; RESP 16; O2SAT 99
[2018-07-08 11:25] VITALS: BP 141/71; PULSE 99; RESP 16; TEMP 36.5; O2SAT 100
--- NOTE | 2018-07-08 12:56 | PM.DS.1 ---
History of Present Illness Chief complaint: trouble breathing Narrative: This is a 67-year-old male with end-stage COPD who comes in with acute onset of increasing dyspnea/hypoxia starting at midnight. There is no change in his coughing pattern. He is on 3 L nasal cannula at home but is now requiring 6 L. He understands that his disease is progressing in an inevitable fashion. He has not smoked since 2002. He does take prednisone daily at home. His chest x-ray has a very concerning pattern for atypical/fungal pneumonia. He has been taking his COPD medicines in a regular fashion. Left upper lobe and right lower lobe consolidation has a similar distribution to the previous examination, but have increased in size since the prior exam. This appearance is highly suspicious for an infectious process, particularly given the area of cavitation within the left upper lobe (also increased slightly in the interim). An atypical fungal or mycobacterial infection is favored. A neoplastic process within the left upper lobe cannot be completely excluded. Superimposed scarring may be present. 3. Tree in bud nodularity within the left lower lobe has increased in the interim, also suspicious for atypical infection. Discharge Providers Date of admission: 07/06/18 15:42 Primary care physician: Rubens Olivier MD Discharge provider: Amy Herrera MD Discharge Date: 07/08/18 Summary Hospital Course: 1) Acute and chronic respiratory failure with hypoxia: Problem details: Patient has chronic hypoxic respiratory failure. He presented with abrupt onset shortness of breath. He responded to usual doses of steroids, oxygen, nebulizers, and antibiotics. He has not needed BiPAP this time. Current visit: Status: Acute (2) Type 2 diabetes mellitus: Problem details: Metformin was continued, also on basal bolus insulin. Current visit: No Status: Chronic (3) Anxiety: Problem details: will continue prn ativan Current visit: No Status: Chronic (4) BPH (benign prostatic hyperplasia): Current visit: No Status: Chronic Possible Fungal Pneumonia - it was not clear at the beginning, but today tells me that he has been treated by Dr. Moore and by Dr. Milligan for this atypical lung infection. The CT scan appears to show that it is enlarging. He will be going back on his tobramycin nebulizer treatments. He will also be on Diflucan until he sees Dr. Moore and follow-up this week for her direction on which antibiotic to take. He will also be on Azithromycin, noting the QT concern when given with Diflucan. Left upper lobe and right lower lobe consolidation has a similar distribution to the previous examination, but have increased in size since the prior exam. This appearance is highly suspicious for an infectious process, particularly given the area of cavitation within the left upper lobe (also increased slightly in the interim). An atypical fungal or mycobacterial infection is favored. A neoplastic process within the left upper lobe cannot be completely excluded. Superimposed scarring may be present. 3. Tree in bud nodularity within the left lower lobe has increased in the interim, also suspicious for atypical infection. Hyperlipidemia - Continue Atorvastatin Resume home health visits. Status at Discharge Functional status at discharge: independent ambulation Time Spent with Patient Greater than 30 minutes Exam Vital Signs (past 8 hours): - 07/08/18 07:30 07/08/18 09:20 07/08/18 10:31 Temperature 97.7 F Pulse Rate 70 88 Respiratory Rate 20 16 Blood Pressure 124/69 Pulse Oximetry 99 95 99 07/08/18 11:25 Temperature 97.7 F Pulse Rate 99 H Respiratory Rate 16 Blood Pressure 141/71 H Pulse Oximetry 100 Fraction of Inspired Oxygen 32 Oxygen Delivery Method Nasal Cannula Oxygen Flow Rate 3 Narrative Exam Narrative: He is alert and oriented x3. There is no apparent distress. He is wheezing bilaterally. Heart is regular rate and rhythm without murmur. Extremities have no ankle edema. Objective Labs Result Diagrams: 07/06/18 12:20 07/06/18 12:20 Discharge Plan Discharge Plan Patient Disposition: Home Discharge comment: Resume RN with [facility] [place]. Follow up with Dr. Solorio Resume the Nebulized Tobramycin and follow up with Dr. Moore next week. Discharge Med Rec/Prescriptions Prescriptions: New fluconazole 100 mg tablet 100 mg PO DAILY Qty: 14 RF: 0 prednisone 10 mg tablet 20 mg PO BID Qty: 50 RF: 0 azithromycin 250 mg tablet 250 mg PO DAILY Qty: 18 RF: 0 Continue guaifenesin [Mucinex] 600 MG tablet extended release 12hr 600 mg PO Q12H Qty: 0 RF: 0 multivitamin [Multiple Vitamins] 1 EACH tablet 1 tab PO DAILY Qty: 0 RF: 0 cholecalciferol (vitamin D3) [Vitamin D3] 1,000 UNIT tablet 1,000 unit PO QDAY Qty: 0 RF: 0 albuterol sulfate [Proventil HFA] 90 MCG/PUFF HFA aerosol inhaler 2 puff INH Q4H PRN (Reason: Shortness Of Breath) Qty: 0 RF: 0 tiotropium bromide [Spiriva with HandiHaler] 18 MCG capsule, w/inhalation device 1 puff INH DAILY Qty: 0 RF: 0 lorazepam 0.5 mg tablet 0.5 mg PO BID PRN (Reason: anxiety) Qty: 60 RF: 0 food supplemt, lactose-reduced [Ensure] liquid See Label Instructions .ROUTE .COMPLEX Qty: 2832 RF: 3 metformin [Glucophage XR] 500 mg tablet extended release 24 hr 1,000 mg PO BID Qty: 180 RF: 1 Spacer: Inhaler Spacer Device 1 ea Inhalation DIRECTED RF: 0 fluticasone-salmeterol [Advair Diskus] 250-50 mcg/dose Blister With Device 1 inh INHALATION Q12H RF: 0 ipratropium-albuterol 0.5 mg-3 mg(2.5 mg base)/3 mL Solution For Nebulization 1 dose Inhalation PRN PRN (Reason: Shortness Of Breath) RF: 0 albuterol sulfate 2.5 mg /3 mL (0.083 %) Solution For Nebulization 3 ml Inhalation TID RF: 0 aspirin 81 mg Tablet,Delayed Release (Dr/Ec) 81 mg PO DAILY RF: 0 loratadine 10 mg Tablet 10 mg PO DAILY RF: 0 furosemide 40 mg Tablet 40 mg PO DAILY PRN (Reason: SOB) RF: 0 atorvastatin [Lipitor] 20 MG tablet 20 mg PO BEDTIME RF: 0 tamsulosin [Flomax] 0.4 mg capsule 0.4 mg PO DAILY RF: 0 tobramycin with nebulizer 300 mg/5 mL Solution For Nebulization 300 mg INHALATION DAILY RF: 0 Discontinued prednisone 20 mg tablet 20 mg PO BID Qty: 20 RF: 0 Follow up/Referrals: Rubens Olivier MD [Primary Care Provider] - Visit Report/Discharge Packet Visit Report Forms: Stroke Signs & Symptoms Discharge Data Primary Care Provider: Rubens Olivier Attending Provider: Amy Herrera Admit Date/Time: 07/06/18 15:42 Discharges patient from system. Discharge Date/Time: 07/08/18 14:50 Quality VTE Deep Vein Thrombosis/Pulmonary Embolism Present on Admission: No
[2018-07-08] MEDS: AZITHROMYCIN 500 MG in DEXTROSE 5% IN WATER 250 ML IV (13:03)
--- NOTE | 2018-07-08 13:36 | PC.NURSE ---
Discharge prescriptions given to patient's by this RN per patient request so patient spouse could take them to have them filled prior to discharge.
--- NOTE | 2018-07-08 14:57 | PC.NURSE ---
Discharge: Patient discharged home this shift at 1450 via wheelchair. Patient's home oxygen tank with patient for discharge. Discharge prescriptions and instructions reviewed with patient and spouse. no questions at time of discharge.
--- NOTE | 2018-07-08 15:27 | CM.DANOTE ---
DCP Continued Discharge orders received for patient. Met with patient and his at the bedside. Patient with oxygen on and they confirm that he has oxygen for transport and [facility] provides oxygen in the home. Left message for [facility] of patient's discharge and need for resuming HH services. Plan: Discharge home with .
== END 2018-07-08 14:50 | disposition home health service (06) | DRG 190 ==
LOC: ED 15:41 → AC 15:42
PROVIDERS: Admitting Provider Family Medicine; Emergency Provider Nurse Practitioner Family; Family Provider Internal Medicine Infectious Disease; PCP Student in an Organized Health Care Education/Training Program; Visit Provider Family Medicine
DX: J44.1 Chronic obstructive pulmonary disease with (acute) exacerbation (principal); J16.8 Pneumonia due to other specified infectious organisms; J96.21 Acute and chronic respiratory failure with hypoxia; B49 Unspecified mycosis; J44.0 Chronic obstructive pulmonary disease with (acute) lower respiratory infection; Z99.81 Dependence on supplemental oxygen; Z87.891 Personal history of nicotine dependence; Z79.52 Long term (current) use of systemic steroids; I73.9 Peripheral vascular disease, unspecified; I25.10 Atherosclerotic heart disease of native coronary artery without angina pectoris; E11.9 Type 2 diabetes mellitus without complications; Z79.84 Long term (current) use of oral hypoglycemic drugs; F41.9 Anxiety disorder, unspecified; N40.0 Benign prostatic hyperplasia without lower urinary tract symptoms; E78.5 Hyperlipidemia, unspecified
CPT/HCPCS: 36415; 36591; 36600; 71275; 80053; 81003; 81015; 82550; 82805; 82962; 83605; 83690; 83880; 84145; 84484; 85025; 85610; 87040; 87077; 87086; 87186; 93005; 93010; 94640; 94760; 94762; 96361; 96374; 96375; 99284; 99285; J1450; J1956; J2930; J7613; Q9967

== ENCOUNTER → 2018-07-12 07:25 | Outpatient (CLI) | payer MEDICARE, OTHER, SELFPAY ==
[2018-07-05 11:59] VITALS: PULSE 84; RESP 24; O2SAT 98
[2018-07-06 17:26] VITALS: BMI 24.3
== END ==
PROVIDERS: Family Provider Internal Medicine Infectious Disease; PCP Student in an Organized Health Care Education/Training Program; Visit Provider Internal Medicine Critical Care Medicine
DX: J47.9 Bronchiectasis, uncomplicated (principal)
CPT/HCPCS: 87116

== ENCOUNTER → 2018-07-16 07:37 | Outpatient (CLI) | payer MEDICARE, OTHER, SELFPAY ==
[2018-07-05 11:59] VITALS: PULSE 84; RESP 24; O2SAT 98
[2018-07-06 17:26] VITALS: BMI 24.3
== END ==
PROVIDERS: Family Provider Internal Medicine Infectious Disease; PCP Student in an Organized Health Care Education/Training Program; Visit Provider Internal Medicine Critical Care Medicine
DX: J47.9 Bronchiectasis, uncomplicated (principal)
CPT/HCPCS: 87077; 87102; 87116

== ENCOUNTER → 2018-07-18 07:50 | Outpatient (CLI) | payer MEDICARE, OTHER, SELFPAY ==
[2018-07-05 11:59] VITALS: PULSE 84; RESP 24; O2SAT 98
[2018-07-06 17:26] VITALS: BMI 24.3
== END ==
PROVIDERS: Family Provider Internal Medicine Infectious Disease; PCP Student in an Organized Health Care Education/Training Program; Visit Provider Internal Medicine Critical Care Medicine
DX: J47.9 Bronchiectasis, uncomplicated (principal)
CPT/HCPCS: 87070; 87107; 87116; 87205

== ENCOUNTER → 2018-08-23 07:51 | Outpatient (CLI) | payer MEDICARE, OTHER, SELFPAY ==
[2018-07-05 11:59] VITALS: PULSE 84; RESP 24; O2SAT 98
[2018-07-06 17:26] VITALS: BMI 24.3
== END ==
PROVIDERS: Family Provider Student in an Organized Health Care Education/Training Program; PCP Student in an Organized Health Care Education/Training Program; Visit Provider Internal Medicine Infectious Disease
DX: A31.0 Pulmonary mycobacterial infection (principal)
CPT/HCPCS: 87070; 87102; 87107; 87116; 87186; 87205

== ENCOUNTER → 2018-09-12 11:41 | Outpatient (REF) | payer MEDICARE, OTHER, SELFPAY ==
[2018-07-05 11:59] VITALS: PULSE 84; RESP 24; O2SAT 98
[2018-07-06 17:26] VITALS: BMI 24.3
[2018-09-12 12:01] LABS: Alanine Aminotransferase 24 IU/L (21-72); Albumin Globulin Ratio 1.3 (1.0-2.8); Alkaline Phosphatase 63 U/L (38-126); Aspartate Aminotransferase 16 IU/L (17-59); Bilirubin Total 0.2 mg/dL (0.2-1.3); Blood Urea Nitrogen 21 mg/dL (9-20); Calcium 9.4 mg/dL (8.4-10.2); Chloride 87 mmol/L (98-107); Estimated Glomerular Filt Rate > 60.0 mL/min (>60); Globulin 3.1 g/dL (1.7-4.1); Glucose 305 mg/dL (80-110); HEMOLYSIS < 15 (0-50); Potassium 4.9 mmol/L (3.4-5.1); Sodium 138 mmol/L (137-145); Total Protein 7.1 g/dL (6.3-8.2)
[2018-09-12 12:19] LABS: Carbon Dioxide 41 mmol/L (22-32)
== END ==
LOC: LAB 11:41
PROVIDERS: Family Provider Student in an Organized Health Care Education/Training Program; PCP Student in an Organized Health Care Education/Training Program; Visit Provider Internal Medicine Critical Care Medicine
DX: B44.81 Allergic bronchopulmonary aspergillosis (principal)
CPT/HCPCS: 80053

== ENCOUNTER 2018-09-16 13:58 | Inpatient (IN) | payer MEDICARE, OTHER, SELFPAY ==
[2018-07-05 11:59] VITALS: PULSE 84; RESP 24; O2SAT 98
[2018-07-06 17:26] VITALS: BMI 24.3
[2018-09-16] VITALS (17 sets, daily range): BP systolic 98–139; BP diastolic 47–81; PULSE 12–97; RESP 16–73; TEMP 35.9–36.9; O2SAT 92–99; BMI 23.3
--- NOTE | 2018-09-16 14:16 | ED.SOB ---
HPI - SOB/Dyspnea General Chief Complaint: Shortness of Breath/Dyspnea Stated Complaint: SOB Time Seen by Provider: 09/16/18 14:04 Source: patient, EMS and old records reviewed Mode of arrival: EMS Limitations: no limitations History of Present Illness This is a 68-year-old male who comes to the emergency department with complaint of shortness of breath. Patient states he has been markedly worse for the last 24 hr he states that a he has been bumping up his home oxygen to 4 L from his usual 3L. Patient denies any fevers. He states he has been coughing but it is his usual green-yellow sputum. Patient states that he had some neb treatments home states 3 prior to arrival that they were not particularly helpful. He denies any chest pain or pressure. He denies any nausea or vomiting. He denies any swelling in his lower extremities but states he did take some Lasix this morning. Has known COPD as well as unknown fungal infection. He states he has been on medications for it for 2 weeks. He does not use BiPAP or CPAP at home. Related Data Home Medications Medication Instructions Recorded Confirmed cholecalciferol (vitamin D3) 1,000 unit PO QDAY #0 02/07/17 07/27/18 [Vitamin D3] guaifenesin [Mucinex] 600 mg PO Q12H #0 02/07/17 07/27/18 multivitamin [Multiple Vitamins] 1 tab PO DAILY #0 02/07/17 07/27/18 albuterol sulfate [Proventil HFA] 2 puff INH Q4H PRN #0 02/08/17 07/27/18 tiotropium bromide [Spiriva with 1 puff INH DAILY #0 08/03/17 07/27/18 HandiHaler] Spacer: Inhaler Spacer Device 1 ea INHALATION DIRECTED 01/26/18 07/27/18 albuterol sulfate 3 ml INHALATION TID 01/26/18 07/27/18 aspirin 81 mg PO DAILY 01/26/18 07/27/18 fluticasone-salmeterol [Advair 1 inh INHALATION Q12H 01/26/18 07/27/18 Diskus] ipratropium-albuterol 1 dose INHALATION PRN PRN 01/26/18 07/27/18 loratadine 10 mg PO DAILY 01/26/18 07/27/18 tobramycin with nebulizer 300 mg INHALATION DAILY 05/01/18 07/27/18 tamsulosin [Flomax] 0.4 mg PO DAILY 07/06/18 07/27/18 Previous Rx's Medication Instructions Recorded food supplement, lactose-reduced See Rx Instructions .ROUTE 05/22/18 oral liquid .COMPLEX #2832 ml metformin ER 500 mg 1,000 mg PO BID #180 tab 06/21/18 tablet,extended release 24 hr fluconazole 100 mg PO DAILY #14 tab 07/08/18 prednisone 20 mg PO BID #50 tab 07/08/18 lorazepam 0.5 mg tablet 0.5 mg PO BID PRN #60 tab 07/19/18 atorvastatin 20 mg tablet 20 mg PO BEDTIME #90 tab 08/20/18 furosemide 40 mg tablet 40 mg PO DAILY PRN #30 tab 08/21/18 Allergies Allergy/AdvReac Type Severity Reaction Status Date / Time felodipine [FELODIPINE] Allergy Intermediate SWELLING Verified 07/27/18 15:26 Review of Systems Review of Systems ROS Unobtainable: All systems reviewed & are unremarkable except as noted in HPI and below Constitutional Denies chills, Reports fatigue, Denies fever(s), Denies lethargy and Denies weakness Cardiovascular Denies chest pain, Denies syncope, Denies rapid heart rate, Denies edema, Denies irregular heart rhythm, Denies lightheadedness, Denies palpitations, Reports dyspnea, Reports dyspnea on exertion and Denies orthopnea Respiratory Denies change in phlegm color (Normal yellow-green color), Denies chest congestion, Reports cough, Denies hemoptysis, Denies pain on inspiration, Denies pain with cough, Reports dyspnea, Reports dyspnea on exertion and Denies wheezing Gastrointestinal Gastrointestinal: Denies abdominal pain, Denies change in bowel habits, Denies constipation, Denies diarrhea, Denies nausea and Denies vomiting Genitourinary Denies hematuria, Denies flank pain, Denies urinary incontinence and Denies urinary urgency Neurologic Denies syncope and Denies weakness Endocrine Reports fatigue and Denies palpitations Allergic/Immunologic Denies wheezing [facility] Medical History Anxiety (Chronic Unknown) Peripheral vascular disease (Chronic Unknown) Hx of small bowel obstruction (Resolved 03/2015) Hyperlipemia (Chronic Unknown) Nontuberculous mycobacterial infection (Chronic 2015) Coronary artery disease (Chronic Unknown) History of colon cancer (Resolved ~2010) BPH (benign prostatic hyperplasia) (Chronic Unknown) COPD (chronic obstructive pulmonary disease) (Chronic Unknown) Diabetes (Chronic Unknown) COPD (chronic obstructive pulmonary disease) (Inactive) Dependent edema (Inactive) Surgical History H/O cardiac catheterization (Resolved 2010) S/P small bowel resection (Resolved 03/2015) Hx of hernia repair (Resolved 2008) S/P colon resection (Resolved 2010) Hx of cataract surgery (Resolved 2014) Family History Mother Cancer Father Congestive heart failure Social History household members: spouse and family Smoking Status: Former smoker alcohol intake: current Social History household members: spouse and family Smoking Status: Former smoker alcohol intake: current Exam Narrative Exam Narrative: GEN: Elderly male, alert and oriented x 3, patient appears to be in moderate to severe distress. HEENT: Atraumatic, pupils are equal round reactive to light, extraocular movements are intact, nares are clear, TMs are clear with no fluid, there is no conjunctival pallor. Throat is clear without any exudates, erythema, tonsillar enlargement or uvular deviation HEART: Regular rate and rhythm without murmur, clicks, rubs. Pulses equal bilateral lower extremities. LUNGS:Lungs are decreased bilaterally with very little air movement, minimal wheeze, no crackles, no rhonchi or rales. Tachypnea. Speaks 2223 current sentences. Patient has accessory muscle use of the neck and chest. ABD:bowel sounds normal, soft, non-tender, no guarding, rebound, rigidity, no masses noted, no hepatosplenomegaly :No CVA tenderness MSCL: Non-tender, no muscle atrophy, muscles strength 5/5 upper and lower extremities, full range of motion NEURO:CN 2-12 intact, sensation normal Initial Vital Signs Initial Vital Signs: Vital Signs Temperature 96.6 F L 09/16/18 14:07 Pulse Rate 96 H 09/16/18 14:07 Respiratory Rate 21 09/16/18 14:07 Blood Pressure 118/81 09/16/18 14:07 Pulse Oximetry 96 09/16/18 14:07 Course Orders Ordered: ED Orders 09/16/18 14:15 Consult to Respiratory Therapy Evaluate & Treat Arterial Blood Gas Stat EKG-12 Lead Stat 09/16/18 14:16 XR chest 1V Stat 09/16/18 14:25 B Type Natriuretic Peptide Stat Basic Metabolic Panel Stat Complete Blood Count AUTO DIFF Stat Hemoglobin A1C % Routine Magnesium Stat Troponin & CK Cardiac Panel Stat 09/16/18 14:30 Arterial Blood Gas Stat 09/16/18 14:32 Urine Microscopic Stat 09/16/18 14:35 Lactate (Lactic Acid) Stat 09/16/18 17:08 Education, smoking cessation ONGOING 09/16/18 17:15 Basic Metabolic Panel DAILY Complete Blood Count AUTO DIFF DAILY 09/16/18 17:41 RT Consult Eval and Treat Now 09/16/18 18:50 Lactate 4HR (Lactic Acid Rflx) Stat Acetaminophen (Tylenol) 650 mg PO Q6HR PRN PRN Reason: As Needed for Fever/Mild Pain Al Hydrox/Mg Hydrox/Simethicone (Maalox Plus) 30 ml PO Q6HR PRN PRN Reason: Dyspepsia Albuterol/Ipratropium (Duoneb) 3 ml INH [id number] [facility] Albuterol/Ipratropium (Duoneb) 3 ml INH Q2H PRN PRN Reason: Shortness Of Breath Budesonide (Pulmicort) 0.5 mg INH RTBID DIAZ Dextrose (D50w) 25 gm IV PRN PRN PRN Reason: Hypoglycemia Docusate Sodium (Colace) 100 mg PO BID [facility] Doxycycline Hyclate (Vibramycin) 100 mg PO BID [facility] Enoxaparin Sodium (Lovenox) 40 mg SUBCUT DAILY [facility] Guaifenesin (Mucinex) 600 mg PO Q12HR PRN PRN Reason: Cough Insulin Aspart (Novolog Flexpen) 0 unit SUBCUT ACHS [facility]; Protocol Methylprednisolone (Solu-Medrol 125 Mg Vial) 80 mg IV Q8H [facility] Last Admin: 09/16/18 18:43 Dose: Not Given Pantoprazole Sodium (Protonix) 40 mg PO 0700 [facility] Discontinued Medications Albuterol (Proventil 0.5% Neb Solution) 10 mg INH CONT DIAZ Stop: 09/16/18 15:16 Last Admin: 09/16/18 16:15 Dose: Not Given Albuterol (Ventolin) 2.5 mg INH NOW ONE Stop: 09/16/18 14:27 Last Admin: 09/16/18 14:28 Dose: 2.5 mg Albuterol/Ipratropium (Duoneb) 3 ml INH NOW ONE Stop: 09/16/18 14:16 Last Admin: 09/16/18 14:25 Dose: 3 ml Methylprednisolone (Solu-Medrol 125 Mg Vial) 125 mg IV NOW ONE Stop: 09/16/18 14:16 Last Admin: 09/16/18 14:37 Dose: 125 mg Morphine Sulfate (Morphine) 4 mg IV NOW ONE Stop: 09/16/18 14:15 Vital Signs - 8 hr 09/16/18 14:07 09/16/18 14:30 09/16/18 14:41 Temperature 96.6 F L Pulse Rate 96 H 97 H 96 H Respiratory Rate 21 22 20 Blood Pressure 118/81 Blood Pressure [Right Arm] 134/59 L Pulse Oximetry 96 92 99 09/16/18 15:00 09/16/18 15:24 09/16/18 15:30 Temperature Pulse Rate 93 H 90 78 Respiratory Rate 21 19 19 Blood Pressure Blood Pressure [Right Arm] 98/62 98/62 119/47 L Pulse Oximetry 97 97 97 09/16/18 16:00 09/16/18 16:30 09/16/18 17:00 Temperature Pulse Rate 79 78 12 L Respiratory Rate 19 18 73 H Blood Pressure Blood Pressure [Right Arm] 125/57 L 112/52 L 104/49 L Pulse Oximetry 97 98 96 09/16/18 17:31 09/16/18 17:36 09/16/18 18:10 Temperature 98.1 F Pulse Rate 74 72 78 Respiratory Rate 17 20 22 Blood Pressure 139/51 L 136/65 Blood Pressure [Right Arm] 139/51 L Pulse Oximetry 97 97 95 MDM - SOB/Dyspnea Lab Data Attestation: I reviewed the patient's lab results. Result diagrams: 09/16/18 14:25 09/16/18 14:25 Lab Results 09/16/18 09/16/18 09/16/18 Range/Units 14:25 14:25 14:25 WBC 22.0 H (4.5-11.0) X10^3/uL RBC 4.20 L (4.5-5.9) X10^6/uL Hgb 12.3 L (13.5-17.5) g/dL Hct 38.7 L (41-53) % MCV 92.2 (80-100) fL MCH 29.3 (26-34) PG MCHC 31.8 (30-36) % RDW 14.9 H (11.6-14.8) % Plt Count 314 (150-400) X10^3/uL Neut % (Auto) 94.3 H (50-75) % Lymph % (Auto) 1.7 L (25-40) % [place] % (Auto) 3.8 (3-14) % Eos % (Auto) 0.0 L (2-4) % Baso % (Auto) 0.2 (0-2) % Neut # (Auto) 10766 H (1208-2312) /uL Lymph # (Auto) 400 L (1832-4526) /uL [place] # (Auto) 800 (0-900) /uL Eos # (Auto) 0 (0-450) /uL Baso # (Auto) 0 (0-100) /uL ABG pH (7.35-7.45) ABG pCO2 (35-45) mmHg ABG pO2 (80-100) mmHg ABG HCO3 (22-26) mmol/L ABG Total CO2 (21-31) mmol/L ABG O2 Saturation (95-100) % ABG Base Excess (-2-2) mmol/L FiO2 Sodium 141 (137-145) mmol/L Potassium 4.4 (3.4-5.1) mmol/L Chloride 90 L (98-107) mmol/L Carbon Dioxide 41 H* (22-32) mmol/L BUN 22 H (9-20) mg/dL Creatinine 0.60 L (0.66-1.25) mg/dL Estimated GFR > 60.0 (>60) mL/min BUN/Creatinine Ratio 36.7 H (6-22) Glucose 276 H (80-110) mg/dL Hemoglobin A1c 7.0 H (4.0-6.0) % Lactate (0.7-2.1) mmol/L Calcium 10.0 (8.4-10.2) mg/dL Magnesium 1.9 (1.6-2.3) mg/dL Total Creatine Kinase < 20 L (55-170) U/L CK-MB (CK-2) TNP CK-MB (CK-2) Rel Index TNP Troponin I < 0.012 (0.01-0.034) ng/mL B-Natriuretic Peptide < 100 (<100) Urine RBC (0-5/HPF) Urine WBC (0-5/HPF) Ur Squamous Epith Cells Urine Bacteria (None) Ur Culture Indicated? 09/16/18 09/16/18 09/16/18 Range/Units 14:30 14:32 14:35 WBC (4.5-11.0) X10^3/uL RBC (4.5-5.9) X10^6/uL Hgb (13.5-17.5) g/dL Hct (41-53) % MCV (80-100) fL MCH (26-34) PG MCHC (30-36) % RDW (11.6-14.8) % Plt Count (150-400) X10^3/uL Neut % (Auto) (50-75) % Lymph % (Auto) (25-40) % [place] % (Auto) (3-14) % Eos % (Auto) (2-4) % Baso % (Auto) (0-2) % Neut # (Auto) (4886-1989) /uL Lymph # (Auto) (5536-5317) /uL [place] # (Auto) (0-900) /uL Eos # (Auto) (0-450) /uL Baso # (Auto) (0-100) /uL ABG pH 7.39 (7.35-7.45) ABG pCO2 65.0 H* (35-45) mmHg ABG pO2 101 H (80-100) mmHg ABG HCO3 40 H (22-26) mmol/L ABG Total CO2 42 H (21-31) mmol/L ABG O2 Saturation 97 (95-100) % ABG Base Excess 15.0 H (-2-2) mmol/L FiO2 3 Sodium (137-145) mmol/L Potassium (3.4-5.1) mmol/L Chloride (98-107) mmol/L Carbon Dioxide (22-32) mmol/L BUN (9-20) mg/dL Creatinine (0.66-1.25) mg/dL Estimated GFR (>60) mL/min BUN/Creatinine Ratio (6-22) Glucose (80-110) mg/dL Hemoglobin A1c (4.0-6.0) % Lactate 3.4 H (0.7-2.1) mmol/L Calcium (8.4-10.2) mg/dL Magnesium (1.6-2.3) mg/dL Total Creatine Kinase (55-170) U/L CK-MB (CK-2) CK-MB (CK-2) Rel Index Troponin I (0.01-0.034) ng/mL B-Natriuretic Peptide (<100) Urine RBC 1-5/hpf (0-5/HPF) Urine WBC 0-1/hpf (0-5/HPF) Ur Squamous Epith Cells 0-1 /hpf Urine Bacteria None seen (None) Ur Culture Indicated? Cult not indicated 09/16/18 Range/Units 18:50 WBC (4.5-11.0) X10^3/uL RBC (4.5-5.9) X10^6/uL Hgb (13.5-17.5) g/dL Hct (41-53) % MCV (80-100) fL MCH (26-34) PG MCHC (30-36) % RDW (11.6-14.8) % Plt Count (150-400) X10^3/uL Neut % (Auto) (50-75) % Lymph % (Auto) (25-40) % [place] % (Auto) (3-14) % Eos % (Auto) (2-4) % Baso % (Auto) (0-2) % Neut # (Auto) (9089-4620) /uL Lymph # (Auto) (0259-2569) /uL [place] # (Auto) (0-900) /uL Eos # (Auto) (0-450) /uL Baso # (Auto) (0-100) /uL ABG pH (7.35-7.45) ABG pCO2 (35-45) mmHg ABG pO2 (80-100) mmHg ABG HCO3 (22-26) mmol/L ABG Total CO2 (21-31) mmol/L ABG O2 Saturation (95-100) % ABG Base Excess (-2-2) mmol/L FiO2 Sodium (137-145) mmol/L Potassium (3.4-5.1) mmol/L Chloride (98-107) mmol/L Carbon Dioxide (22-32) mmol/L BUN (9-20) mg/dL Creatinine (0.66-1.25) mg/dL Estimated GFR (>60) mL/min BUN/Creatinine Ratio (6-22) Glucose (80-110) mg/dL Hemoglobin A1c (4.0-6.0) % Lactate 1.7 (0.7-2.1) mmol/L Calcium (8.4-10.2) mg/dL Magnesium (1.6-2.3) mg/dL Total Creatine Kinase (55-170) U/L CK-MB (CK-2) CK-MB (CK-2) Rel Index Troponin I (0.01-0.034) ng/mL B-Natriuretic Peptide (<100) Urine RBC (0-5/HPF) Urine WBC (0-5/HPF) Ur Squamous Epith Cells Urine Bacteria (None) Ur Culture Indicated? Urine Dip Bedside Urine Glucose 100 mg/dl Bedside Urine Bilirubin - Negative Bedside Urine Ketone - Negative Urine Specific [place] 1.020 Bedside Urine Occult Blood + Bedside Urine pH 5.5 Bedside Urine Protein - Negative Bedside Urine Urobilinogen - Negative Bedside Urine Nitrite - Negative Bedside Urine Leukocytes - Negative Esterase ABG Data Attestation: I personally reviewed and interpreted this ABG as follows: Interpretation: Patient has respiratory acidosis with metabolic compensation with a pH of 7.39, CO2 of 65, bicarb of 40 and PaO2 of 101 on patient normal 3 L of nasal cannula. And comparison patient's prior ABGs his CO2 level has elevated but does appear that he is compensating appropriately. Imaging Data Chest x-ray: Radiologist's impression: [address] [id number] XRay Report Signed Patient: Chacorta Yanes LMR#: [id number] : 8Acct:[id number] Age/Sex: 68 / MDate of Service: 09/16/18 Loc: ED Accession Number: [id number] Procedure: XR chest 1V Ordering Provider: Mar Ortega D.O. PROCEDURE: XR CHEST 1V INDICATIONS: sob, copd TECHNIQUE: One view of the chest was acquired. COMPARISON: [facility], CR, CHEST 2 VIEW, 11/12/2017, 13:20. [facility], CR, XR CHEST 1V, 05/26/2018, 19:57. FINDINGS: Surgical changes and devices: None. Lungs and pleura: No pneumothorax. There is chronic blunting of the costophrenic angles bilaterally. No acute consolidation. Scattered subsegmental atelectasis and/or scarring Mediastinum: Mediastinal contours appear normal. Heart size is normal. Bones and chest wall: No suspicious bony lesions. Overlying soft tissues appear unremarkable. IMPRESSION: No acute consolidation. Scattered subsegmental atelectasis and/or scarring. Dictated by: Bird Santana M.D. on 09/16/2018 at 15:58 Approved by: Bird Santana M.D. on 09/16/2018 at 15:59 ECG Data Attestation: I personally reviewed and interpreted this ECG as follows: Interpretation: Sinus rhythm with a short peer interval, rate of 80 P are 110, QRS and 96 and QTC of 435. Patient has some motion artifact in lateral leads but appears to be consistent with his difficulty with breathing. No ST elevation appreciated patient does have some T-wave abnormalities. MDM Narrative Medical decision making narrative: Discussed with patient possibily starting bipap and he is very reluctant secondary to claustraphobia, patient has used before. He does want to be intubated if necessary. 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 Patient received DuoNeb and albuterol, Solu-Medrol 125 Um and is feeling a little bit back to his baseline. His states that his breathing also appears at his baseline although he still has some work of breathing. Patient's white count appears to be trending up and is at 22,000 with a left shift. Patient has a known fungal lung infection. Patient's CO2 is elevated from prior ABGs but he appears to be compensated with a pH of 7.39, patient's troponin is negative. Lactate is 3.4 and patient contiues to have some difficulty with breathing, discussed with Dr. Chan who accepts for inpatient admission Discharge Plan Departure Patient Disposition: Admitted As Inpatient Clinical Impression: Acute exacerbation of chronic obstructive pulmonary disease (COPD) Discharge Date/Time: 09/16/18 17:36 Interventions: ED Discharge Assessment Last Done: 09/16/18 17:36 Referrals: Rubens Olivier MD [Primary Care Provider] - Admit Date/Time: 09/16/18 16:51 Admit Provider: Rubens Sutherland
--- NOTE | 2018-09-16 14:24 | ED_ITS ---
HPI - SOB/Dyspnea General Chief Complaint: Shortness of Breath/Dyspnea Stated Complaint: SOB Time Seen by Provider: 09/16/18 14:04 Source: patient, EMS and old records reviewed Mode of arrival: EMS Limitations: no limitations History of Present Illness This is a 68-year-old male who comes to the emergency department with complaint of shortness of breath. Patient states he has been markedly worse for the last 24 hr he states that a he has been bumping up his home oxygen to 4 L from his usual 3L. Patient denies any fevers. He states he has been coughing but it is his usual green-yellow sputum. Patient states that he had some neb treatments home states 3 prior to arrival that they were not particularly helpful. He denies any chest pain or pressure. He denies any nausea or vomiting. He denies any swelling in his lower extremities but states he did take some Lasix this morning. Has known COPD as well as unknown fungal infection. He states he has been on medications for it for 2 weeks. He does not use BiPAP or CPAP at home. Related Data Home Medications Medication Instructions Recorded Confirmed cholecalciferol (vitamin D3) 1,000 unit PO QDAY #0 02/07/17 07/27/18 [Vitamin D3] guaifenesin [Mucinex] 600 mg PO Q12H #0 02/07/17 07/27/18 multivitamin [Multiple Vitamins] 1 tab PO DAILY #0 02/07/17 07/27/18 albuterol sulfate [Proventil HFA] 2 puff INH Q4H PRN #0 02/08/17 07/27/18 tiotropium bromide [Spiriva with 1 puff INH DAILY #0 08/03/17 07/27/18 HandiHaler] Spacer: Inhaler Spacer Device 1 ea INHALATION DIRECTED 01/26/18 07/27/18 albuterol sulfate 3 ml INHALATION TID 01/26/18 07/27/18 aspirin 81 mg PO DAILY 01/26/18 07/27/18 fluticasone-salmeterol [Advair 1 inh INHALATION Q12H 01/26/18 07/27/18 Diskus] ipratropium-albuterol 1 dose INHALATION PRN PRN 01/26/18 07/27/18 loratadine 10 mg PO DAILY 01/26/18 07/27/18 tobramycin with nebulizer 300 mg INHALATION DAILY 05/01/18 07/27/18 tamsulosin [Flomax] 0.4 mg PO DAILY 07/06/18 07/27/18 Previous Rx's Medication Instructions Recorded food supplement, lactose-reduced See Rx Instructions .ROUTE 05/22/18 oral liquid .COMPLEX #2832 ml metformin ER 500 mg 1,000 mg PO BID #180 tab 06/21/18 tablet,extended release 24 hr fluconazole 100 mg PO DAILY #14 tab 07/08/18 prednisone 20 mg PO BID #50 tab 07/08/18 lorazepam 0.5 mg tablet 0.5 mg PO BID PRN #60 tab 07/19/18 atorvastatin 20 mg tablet 20 mg PO BEDTIME #90 tab 08/20/18 furosemide 40 mg tablet 40 mg PO DAILY PRN #30 tab 08/21/18 Allergies Allergy/AdvReac Type Severity Reaction Status Date / Time felodipine [FELODIPINE] Allergy Intermediate SWELLING Verified 07/27/18 15:26 Review of Systems Review of Systems ROS Unobtainable: All systems reviewed & are unremarkable except as noted in HPI and below Constitutional Denies chills, Reports fatigue, Denies fever(s), Denies lethargy and Denies weakness Cardiovascular Denies chest pain, Denies syncope, Denies rapid heart rate, Denies edema, Denies irregular heart rhythm, Denies lightheadedness, Denies palpitations, Reports dyspnea, Reports dyspnea on exertion and Denies orthopnea Respiratory Denies change in phlegm color (Normal yellow-green color), Denies chest congestion, Reports cough, Denies hemoptysis, Denies pain on inspiration, Denies pain with cough, Reports dyspnea, Reports dyspnea on exertion and Denies wheezing Gastrointestinal Gastrointestinal: Denies abdominal pain, Denies change in bowel habits, Denies constipation, Denies diarrhea, Denies nausea and Denies vomiting Genitourinary Denies hematuria, Denies flank pain, Denies urinary incontinence and Denies urinary urgency Neurologic Denies syncope and Denies weakness Endocrine Reports fatigue and Denies palpitations Allergic/Immunologic Denies wheezing [facility] Medical History Anxiety (Chronic Unknown) Peripheral vascular disease (Chronic Unknown) Hx of small bowel obstruction (Resolved 03/2015) Hyperlipemia (Chronic Unknown) Nontuberculous mycobacterial infection (Chronic 2015) Coronary artery disease (Chronic Unknown) History of colon cancer (Resolved ~2010) BPH (benign prostatic hyperplasia) (Chronic Unknown) COPD (chronic obstructive pulmonary disease) (Chronic Unknown) Diabetes (Chronic Unknown) COPD (chronic obstructive pulmonary disease) (Inactive) Dependent edema (Inactive) Surgical History H/O cardiac catheterization (Resolved 2010) S/P small bowel resection (Resolved 03/2015) Hx of hernia repair (Resolved 2008) S/P colon resection (Resolved 2010) Hx of cataract surgery (Resolved 2014) Family History Mother Cancer Father Congestive heart failure Social History household members: spouse and family Smoking Status: Former smoker alcohol intake: current Social History household members: spouse and family Smoking Status: Former smoker alcohol intake: current Exam Narrative Exam Narrative: GEN: Elderly male, alert and oriented x 3, patient appears to be in moderate to severe distress. HEENT: Atraumatic, pupils are equal round reactive to light, extraocular movements are intact, nares are clear, TMs are clear with no fluid, there is no conjunctival pallor. Throat is clear without any exudates, erythema, tonsillar enlargement or uvular deviation HEART: Regular rate and rhythm without murmur, clicks, rubs. Pulses equal bilateral lower extremities. LUNGS:Lungs are decreased bilaterally with very little air movement, minimal wheeze, no crackles, no rhonchi or rales. Tachypnea. Speaks 2223 current sen tences. Patient has accessory muscle use of the neck and chest. ABD:bowel sounds normal, soft, non-tender, no guarding, rebound, rigidity, no masses noted, no hepatosplenomegaly :No CVA tenderness MSCL: Non-tender, no muscle atrophy, muscles strength 5/5 upper and lower extremities, full range of motion NEURO:CN 2-12 intact, sensation normal Initial Vital Signs Initial Vital Signs: Vital Signs Temperature 96.6 F L 09/16/18 14:07 Pulse Rate 96 H 09/16/18 14:07 Respiratory Rate 21 09/16/18 14:07 Blood Pressure 118/81 09/16/18 14:07 Pulse Oximetry 96 09/16/18 14:07 Course Orders Ordered: ED Orders 09/16/18 14:15 Consult to Respiratory Therapy Evaluate & Treat Arterial Blood Gas Stat EKG-12 Lead Stat 09/16/18 14:16 XR chest 1V Stat 09/16/18 14:25 B Type Natriuretic Peptide Stat Basic Metabolic Panel Stat Complete Blood Count AUTO DIFF Stat Hemoglobin A1C % Routine Magnesium Stat Troponin & CK Cardiac Panel Stat 09/16/18 14:30 Arterial Blood Gas Stat 09/16/18 14:32 Urine Microscopic Stat 09/16/18 14:35 Lactate (Lactic Acid) Stat 09/16/18 17:08 Education, smoking cessation ONGOING 09/16/18 17:15 Basic Metabolic Panel DAILY Complete Blood Count AUTO DIFF DAILY 09/16/18 17:41 RT Consult Eval and Treat Now 09/16/18 18:50 Lactate 4HR (Lactic Acid Rflx) Stat Acetaminophen (Tylenol) 650 mg PO Q6HR PRN PRN Reason: As Needed for Fever/Mild Pain Al Hydrox/Mg Hydrox/Simethicone (Maalox Plus) 30 ml PO Q6HR PRN PRN Reason: Dyspepsia Albuterol/Ipratropium (Duoneb) 3 ml INH [id number] [facility] Albuterol/Ipratropium (Duoneb) 3 ml INH Q2H PRN PRN Reason: Shortness Of Breath Budesonide (Pulmicort) 0.5 mg INH RTBID DIAZ Dextrose (D50w) 25 gm IV PRN PRN PRN Reason: Hypoglycemia Docusate Sodium (Colace) 100 mg PO BID [facility] Doxycycline Hyclate (Vibramycin) 100 mg PO BID [facility] Enoxaparin Sodium (Lovenox) 40 mg SUBCUT DAILY [facility] Guaifenesin (Mucinex) 600 mg PO Q12HR PRN PRN Reason: Cough Insulin Aspart (Novolog Flexpen) 0 unit SUBCUT ACHS [facility]; Protocol Methylprednisolone (Solu-Medrol 125 Mg Vial) 80 mg IV Q8H [facility] Last Admin: 09/16/18 18:43 Dose: Not Given Pantoprazole Sodium (Protonix) 40 mg PO 0700 [facility] Discontinued Medications Albuterol (Proventil 0.5% Neb Solution) 10 mg INH CONT DIAZ Stop: 09/16/18 15:16 Last Admin: 09/16/18 16:15 Dose: Not Given Albuterol (Ventolin) 2.5 mg INH NOW ONE Stop: 09/16/18 14:27 Last Admin: 09/16/18 14:28 Dose: 2.5 mg Albuterol/Ipratropium (Duoneb) 3 ml INH NOW ONE Stop: 09/16/18 14:16 Last Admin: 09/16/18 14:25 Dose: 3 ml Methylprednisolone (Solu-Medrol 125 Mg Vial) 125 mg IV NOW ONE Stop: 09/16/18 14:16 Last Admin: 09/16/18 14:37 Dose: 125 mg Morphine Sulfate (Morphine) 4 mg IV NOW ONE Stop: 09/16/18 14:15 Vital Signs - 8 hr 09/16/18 14:07 09/16/18 14:30 09/16/18 14:41 Temperature 96.6 F L Pulse Rate 96 H 97 H 96 H Respiratory Rate 21 22 20 Blood Pressure 118/81 Blood Pressure [Right Arm] 134/59 L Pulse Oximetry 96 92 99 09/16/18 15:00 09/16/18 15:24 09/16/18 15:30 Temperature Pulse Rate 93 H 90 78 Respiratory Rate 21 19 19 Blood Pressure Blood Pressure [Right Arm] 98/62 98/62 119/47 L Pulse Oximetry 97 97 97 09/16/18 16:00 09/16/18 16:30 09/16/18 17:00 Temperature Pulse Rate 79 78 12 L Respiratory Rate 19 18 73 H Blood Pressure Blood Pressure [Right Arm] 125/57 L 112/52 L 104/49 L Pulse Oximetry 97 98 96 09/16/18 17:31 09/16/18 17:36 09/16/18 18:10 Temperature 98.1 F Pulse Rate 74 72 78 Respiratory Rate 17 20 22 Blood Pressure 139/51 L 136/65 Blood Pressure [Right Arm] 139/51 L Pulse Oximetry 97 97 95 MDM - SOB/Dyspnea Lab Data Attestation: I reviewed the patient's lab results. Result diagrams: 09/16/18 14:25 09/16/18 14:25 Lab Results 09/16/18 09/16/18 09/16/18 Range/Units 14:25 14:25 14:25 WBC 22.0 H (4.5-11.0) X10^3/uL RBC 4.20 L (4.5-5.9) X10^6/uL Hgb 12.3 L (13.5-17.5) g/dL Hct 38.7 L (41-53) % MCV 92.2 (80-100) fL MCH 29.3 (26-34) PG MCHC 31.8 (30-36) % RDW 14.9 H (11.6-14.8) % Plt Count 314 (150-400) X10^3/uL Neut % (Auto) 94.3 H (50-75) % Lymph % (Auto) 1.7 L (25-40) % [place] % (Auto) 3.8 (3-14) % Eos % (Auto) 0.0 L (2-4) % Baso % (Auto) 0.2 (0-2) % Neut # (Auto) 39899 H (0791-1630) /uL Lymph # (Auto) 400 L (4068-1407) /uL [place] # (Auto) 800 (0-900) /uL Eos # (Auto) 0 (0-450) /uL Baso # (Auto) 0 (0-100) /uL ABG pH (7.35-7.45) ABG pCO2 (35-45) mmHg ABG pO2 (80-100) mmHg ABG HCO3 (22-26) mmol/L ABG Total CO2 (21-31) mmol/L ABG O2 Saturation (95-100) % ABG Base Excess (-2-2) mmol/L FiO2 Sodium 141 (137-145) mmol/L Potassium 4.4 (3.4-5.1) mmol/L Chloride 90 L (98-107) mmol/L Carbon Dioxide 41 H* (22-32) mmol/L BUN 22 H (9-20) mg/dL Creatinine 0.60 L (0.66-1.25) mg/dL Estimated GFR > 60.0 (>60) mL/min BUN/Creatinine Ratio 36.7 H (6-22) Glucose 276 H (80-110) mg/dL Hemoglobin A1c 7.0 H (4.0-6.0) % Lactate (0.7-2.1) mmol/L Calcium 10.0 (8.4-10.2) mg/dL Magnesium 1.9 (1.6-2.3) mg/dL Total Creatine Kinase < 20 L (55-170) U/L CK-MB (CK-2) TNP CK-MB (CK-2) Rel Index TNP Troponin I < 0.012 (0.01-0.034) ng/mL B-Natriuretic Peptide < 100 (<100) Urine RBC (0-5/HPF) Urine WBC (0-5/HPF) Ur Squamous Epith Cells Urine Bacteria (None) Ur Culture Indicated? 09/16/18 09/16/18 09/16/18 Range/Units 14:30 14:32 14:35 WBC (4.5-11.0) X10^3/uL RBC (4.5-5.9) X10^6/uL Hgb (13.5-17.5) g/dL Hct (41-53) % MCV (80-100) fL MCH (26-34) PG MCHC (30-36) % RDW (11.6-14.8) % Plt Count (150-400) X10^3/uL Neut % (Auto) (50-75) % Lymph % (Auto) (25-40) % [place] % (Auto) (3-14) % Eos % (Auto) (2-4) % Baso % (Auto) (0-2) % Neut # (Auto) (4962-7445) /uL Lymph # (Auto) (3968-0969) /uL [place] # (Auto) (0-900) /uL Eos # (Auto) (0-450) /uL Baso # (Auto) (0-100) /uL ABG pH 7.39 (7.35-7.45) ABG pCO2 65.0 H* (35-45) mmHg ABG pO2 101 H (80-100) mmHg ABG HCO3 40 H (22-26) mmol/L ABG Total CO2 42 H (21-31) mmol/L ABG O2 Saturation 97 (95-100) % ABG Base Excess 15.0 H (-2-2) mmol/L FiO2 3 Sodium (137-145) mmol/L Potassium (3.4-5.1) mmol/L Chloride (98-107) mmol/L Carbon Dioxide (22-32) mmol/L BUN (9-20) mg/dL Creatinine (0.66-1.25) mg/dL Estimated GFR (>60) mL/min BUN/Creatinine Ratio (6-22) Glucose (80-110) mg/dL Hemoglobin A1c (4.0-6.0) % Lactate 3.4 H (0.7-2.1) mmol/L Calcium (8.4-10.2) mg/dL Magnesium (1.6-2.3) mg/dL Total Creatine Kinase (55-170) U/L CK-MB (CK-2) CK-MB (CK-2) Rel Index Troponin I (0.01-0.034) ng/mL B-Natriuretic Peptide (<100) Urine RBC 1-5/hpf (0-5/HPF) Urine WBC 0-1/hpf (0-5/HPF) Ur Squamous Epith Cells 0-1 /hpf Urine Bacteria None seen (None) Ur Culture Indicated? Cult not indicated 09/16/18 Range/Units 18:50 WBC (4.5-11.0) X10^3/uL RBC (4.5-5.9) X10^6/uL Hgb (13.5-17.5) g/dL Hct (41-53) % MCV (80-100) fL MCH (26-34) PG MCHC (30-36) % RDW (11.6-14.8) % Plt Count (150-400) X10^3/uL Neut % (Auto) (50-75) % Lymph % (Auto) (25-40) % [place] % (Auto) (3-14) % Eos % (Auto) (2-4) % Baso % (Auto) (0-2) % Neut # (Auto) (8880-7586) /uL Lymph # (Auto) (2073-1068) /uL [place] # (Auto) (0-900) /uL Eos # (Auto) (0-450) /uL Baso # (Auto) (0-100) /uL ABG pH (7.35-7.45) ABG pCO2 (35-45) mmHg ABG pO2 (80-100) mmHg ABG HCO3 (22-26) mmol/L ABG Total CO2 (21-31) mmol/L ABG O2 Saturation (95-100) % ABG Base Excess (-2-2) mmol/L FiO2 Sodium (137-145) mmol/L Potassium (3.4-5.1) mmol/L Chloride (98-107) mmol/L Carbon Dioxide (22-32) mmol/L BUN (9-20) mg/dL Creatinine (0.66-1.25) mg/dL Estimated GFR (>60) mL/min BUN/Creatinine Ratio (6-22) Glucose (80-110) mg/dL Hemoglobin A1c (4.0-6.0) % Lactate 1.7 (0.7-2.1) mmol/L Calcium (8.4-10.2) mg/dL Magnesium (1.6-2.3) mg/dL Total Creatine Kinase (55-170) U/L CK-MB (CK-2) CK-MB (CK-2) Rel Index Troponin I (0.01-0.034) ng/mL B-Natriuretic Peptide (<100) Urine RBC (0-5/HPF) Urine WBC (0-5/HPF) Ur Squamous Epith Cells Urine Bacteria (None) Ur Culture Indicated? Urine Dip Bedside Urine Glucose 100 mg/dl Bedside Urine Bilirubin - Negative Bedside Urine Ketone - Negative Urine Specific [place] 1.020 Bedside Urine Occult Blood + Bedside Urine pH 5.5 Bedside Urine Protein - Negative Bedside Urine Urobilinogen - Negative Bedside Urine Nitrite - Negative Bedside Urine Leukocytes - Negative Esterase ABG Data Attestation: I personally reviewed and interpreted this ABG as follows: Interpretation: Patient has respiratory acidosis with metabolic compensation with a pH of 7.39, CO2 of 65, bicarb of 40 and PaO2 of 101 on patient normal 3 L of nasal cannula. And comparison patient's prior ABGs his CO2 level has elevated but does appear that he is compensating appropriately. Imaging Data Chest x-ray: Radiologist's impression: [address] [address] XRay Report Signed Patient: Chacorta Yanes LMR#: [id number] : 8Acct:[id number] Age/Sex: 68 / MDate of Service: 09/16/18 Loc: ED Accession Number: [id number] Procedure: XR chest 1V Ordering Provider: Mar Ortega D.O. PROCEDURE: XR CHEST 1V INDICATIONS: sob, copd TECHNIQUE: One view of the chest was acquired. COMPARISON: [facility], CR, CHEST 2 VIEW, 11/12/2017, 13:20. [facility], CR, XR CHEST 1V, 05/26/2018, 19:57. FINDINGS: Surgical changes and devices: None. Lungs and pleura: No pneumothorax. There is chronic blunting of the costophrenic angles bilaterally. No acute consolidation. Scattered subsegmental atelectasis and/or scarring Mediastinum: Mediastinal contours appear normal. Heart size is normal. Bones and chest wall: No suspicious bony lesions. Overlying soft tissues appear unremarkable. IMPRESSION: No acute consolidation. Scattered subsegmental atelectasis and/or scarring. Dictated by: Bird Santana M.D. on 09/16/2018 at 15:58 Approved by: Bird Santana M.D. on 09/16/2018 at 15:59 ECG Data Attestation: I personally reviewed and interpreted this ECG as follows: Interpretation: Sinus rhythm with a short peer interval, rate of 80 P are 110, QRS and 96 and QTC of 435. Patient has some motion artifact in lateral leads but appears to be consistent with his difficulty with breathing. No ST elevatio n appreciated patient does have some T-wave abnormalities. MDM Narrative Medical decision making narrative: Discussed with patient possibily starting bipap and he is very reluctant secondary to claustraphobia, patient has used before. He does want to be intubated if necessary. 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 Patient received DuoNeb and albuterol, Solu-Medrol 125 Um and is feeling a little bit back to his baseline. His states that his breathing also appears at his baseline although he still has some work of breathing. Patient's white count appears to be trending up and is at 22,000 with a left shift. Patient has a known fungal lung infection. Patient's CO2 is elevated from prior ABGs but he appears to be compensated with a pH of 7.39, patient's troponin is negative. Lactate is 3.4 and patient contiues to have some difficulty with breathing, discussed with Dr. Chan who accepts for inpatient admission Discharge Plan Departure Patient Disposition: Admitted As Inpatient Clinical Impression: Acute exacerbation of chronic obstructive pulmonary disease (COPD) Discharge Date/Time: 09/16/18 17:36 Interventions: ED Discharge Assessment Last Done: 09/16/18 17:36 Referrals: Rubens Olivier MD [Primary Care Provider] - Admit Date/Time: 09/16/18 16:51 Admit Provider: Rubens Sutherland
[2018-09-16] MEDS: ALBUTEROL/IPRATROPIUM 3 ML AMPUL INH ×2 (14:25→20:09)
[2018-09-16] MEDS: ALBUTEROL 2.5 MG/3 ML NEB (ADULT) INH (14:28)
[2018-09-16] MEDS: methylPREDNISolone 125 MG/2 ML VIAL IV (14:37)
[2018-09-16 14:38] LABS: Add Manual Diff / Slide Review NO; Basophils Absolute Auto 0 /uL (0-100); Basophils Percent Auto 0.2 % (0-2); Eosinophils Absolute Auto 0 /uL (0-450); Hematocrit 38.7 % (41-53); Hemoglobin 12.3 g/dL (13.5-17.5); Lymphocytes Absolute Auto 400 /uL (1100-4500); Lymphocytes Percent Auto 1.7 % (25-40); Mean Corpuscular HGB Conc 31.8 % (30-36); Mean Corpuscular Hemoglobin 29.3 PG (26-34); Mean Corpuscular Volume 92.2 fL (80-100); Monocytes Absolute Auto 800 /uL (0-900); Monocytes Percent Auto 3.8 % (3-14); Neutrophils Absolute Auto 20800 /uL (1500-7000); Neutrophils Percent Auto 94.3 % (50-75); Platelet Count 314 X10^3/uL (150-400); Red Cell Distribution Width 14.9 % (11.6-14.8)
--- NOTE | 2018-09-16 14:43 | PC.NURSE ---
hx of copd, treating for fungal lung infection the last 2 weeks, usually at 3lpm via nc, today increase to 4 liter per minutes. now able to speak in full sentence. occasional congested cough.
[2018-09-16 14:48] LABS: BUN Creatinine Ratio 36.7 (6-22); Blood Urea Nitrogen 22 mg/dL (9-20); Chloride 90 mmol/L (98-107); Creatine Kinase < 20 U/L (55-170); Estimated Glomerular Filt Rate > 60.0 mL/min (>60); Glucose 276 mg/dL (80-110); HEMOLYSIS < 15 (0-50); Magnesium 1.9 mg/dL (1.6-2.3); Potassium 4.4 mmol/L (3.4-5.1); Sodium 141 mmol/L (137-145)
[2018-09-16 14:52] LABS: Lactate (Lactic Acid) 3.4 mmol/L (0.7-2.1)
[2018-09-16 14:57] LABS: Carbon Dioxide 41 mmol/L (22-32)
[2018-09-16 14:59] LABS: B Type Natriuretic Peptide < 100 (<100)
[2018-09-16 15:01] LABS: Troponin I < 0.012 ng/mL (0.01-0.034)
[2018-09-16 15:04] LABS: HCO3 ABG 40 mmol/L (22-26); PO2 ABG 101 mmHg (80-100); TCO2 ABG 42 mmol/L (21-31); pH ABG 7.39 (7.35-7.45)
[2018-09-16 15:05] LABS: Fractionated Inspired Oxygen 3; Oxygen Saturation ABG 97 % (95-100)
[2018-09-16 15:41] LABS: Bacteria Urine None Seen
[2018-09-16 15:48] LABS: RBC Urine 1-5/HPF (0-5/HPF); Squamous Epithelial Cell Urine 0-1 /HPF; WBC Urine 0-1/HPF (0-5/HPF)
[2018-09-16 15:49] LABS: Culture Indicated Urine Cult Not Indicated
--- NOTE | 2018-09-16 17:16 | PM.HP.1 ---
History of Present Illness Chief complaint: SOB Narrative: The patient is a 68-year-old male with known history of COPD, chronic hypoxic respiratory failure on home O2 at 3liters/minute and who presented on admission with progressive shortness of breath. Patient states that he was in his usual state health until the day prior to admission when he began having increasing shortness of breath. He states that he normally uses his nebulizer 3 times a day but because of his increasing problems he uses several times yesterday. He has a home O2 monitor and states that his O2 sat was around 94 but because of his increased symptoms he increased his L flow from 3 L to 4 L. despite this he continued to have ongoing problems. He states that he chronically coughs multiple times during the day and that he was not coughing any more frequently than what he considers normal. He also has a cough productive of swain to green phlegm. This has not changed either. He was using tobramycin in his nebs but this was discontinued and he was put on a different antibiotic pill. He states that he was taking 2 of those twice a day. Additionally he has been on prednisone 20 mg daily. He denied having a fever but states that with increased shortness of breath he has anxiety and with the anxiety he has sweating on the back of his neck. He did not take his temperature in the prior 24 hr. Because of his progressive symptoms he presented to the ED. He was in respiratory distress tachypneic with increased work of breathing and with use of accessory muscles of respiration. Chest x-ray did not reveal any acute infiltrate. There was noted to be subsegmental atelectasis and/or scarring. His CBC was remarkable for white count of 22 with 94.3% neutrophils 1.7 % lymphocytes 3.8% monos 0 eosinophils. Arterial blood gases were obtained his pH was 7.39 pCO2 was 65.0 PO2 was 101 bicarb was 40 O2 saturation was 97% on 3 L. he was given 3 neb treatment Solu-Medrol 125 mg. There was some mild improvement but he was still tachypneic in with increased work of breathing and therefore the hospitalist service was called for admission. Patient History Medical History Anxiety (Chronic Unknown) Peripheral vascular disease (Chronic Unknown) Hx of small bowel obstruction (Resolved 03/2015) Hyperlipemia (Chronic Unknown) Nontuberculous mycobacterial infection (Chronic 2015) Coronary artery disease (Chronic Unknown) History of colon cancer (Resolved ~2010) BPH (benign prostatic hyperplasia) (Chronic Unknown) COPD (chronic obstructive pulmonary disease) (Chronic Unknown) Diabetes (Chronic Unknown) COPD (chronic obstructive pulmonary disease) (Inactive) Dependent edema (Inactive) Surgical History H/O cardiac catheterization (Resolved 2010) S/P small bowel resection (Resolved 03/2015) Hx of hernia repair (Resolved 2008) S/P colon resection (Resolved 2010) Hx of cataract surgery (Resolved 2014) Family History Mother Cancer Father Congestive heart failure Social History household members: spouse and family Smoking Status: Former smoker alcohol intake: current Family & Social History Social History: household members spouse,family Tobacco & Substance use: Tobacco type cigarettes Smoking Status Former smoker alcohol intake current alcohol intake frequency 0-2 drinks per day Substance Use Type does not use Meds Home Medications Medication Instructions Recorded Confirmed Type cholecalciferol (vitamin D3) 1,000 unit PO QDAY #0 02/07/17 07/27/18 History [Vitamin D3] guaifenesin [Mucinex] 600 mg PO Q12H #0 02/07/17 07/27/18 History multivitamin [Multiple Vitamins] 1 tab PO DAILY #0 02/07/17 07/27/18 History albuterol sulfate [Proventil HFA] 2 puff INH Q4H PRN #0 02/08/17 07/27/18 History tiotropium bromide [Spiriva with 1 puff INH DAILY #0 08/03/17 07/27/18 History HandiHaler] Spacer: Inhaler Spacer Device 1 ea INHALATION DIRECTED 01/26/18 07/27/18 History albuterol sulfate 3 ml INHALATION TID 01/26/18 07/27/18 History aspirin 81 mg PO DAILY 01/26/18 07/27/18 History fluticasone-salmeterol [Advair 1 inh INHALATION Q12H 01/26/18 07/27/18 History Diskus] ipratropium-albuterol 1 dose INHALATION PRN PRN 01/26/18 07/27/18 History loratadine 10 mg PO DAILY 01/26/18 07/27/18 History tobramycin with nebulizer 300 mg INHALATION DAILY 05/01/18 07/27/18 History food supplement, lactose-reduced See Rx Instructions .ROUTE 05/22/18 07/27/18 Rx oral liquid .COMPLEX #2832 ml metformin ER 500 mg 1,000 mg PO BID #180 tab 06/21/18 07/27/18 Rx tablet,extended release 24 hr tamsulosin [Flomax] 0.4 mg PO DAILY 07/06/18 07/27/18 History fluconazole 100 mg PO DAILY #14 tab 07/08/18 07/27/18 Rx prednisone 20 mg PO BID #50 tab 07/08/18 07/27/18 Rx lorazepam 0.5 mg tablet 0.5 mg PO BID PRN #60 tab 07/19/18 07/27/18 Rx atorvastatin 20 mg tablet 20 mg PO BEDTIME #90 tab 08/20/18 Rx furosemide 40 mg tablet 40 mg PO DAILY PRN #30 tab 08/21/18 Rx Allergies Allergy/AdvReac Type Severity Reaction Status Date / Time felodipine [FELODIPINE] Allergy Intermediate SWELLING Verified 07/27/18 15:26 Review of Systems Review of Systems All systems reviewed & are unremarkable except as noted in HPI and below Exam Vital Signs (past 8 hours): - 09/16/18 14:07 09/16/18 14:30 09/16/18 14:41 Temperature 96.6 F L Pulse Rate 96 H 97 H 96 H Respiratory Rate 21 22 20 Blood Pressure 118/81 Blood Pressure [Right Arm] 134/59 L Pulse Oximetry 96 92 99 09/16/18 15:00 09/16/18 15:24 09/16/18 15:30 Temperature Pulse Rate 93 H 90 78 Respiratory Rate 21 19 19 Blood Pressure Blood Pressure [Right Arm] 98/62 98/62 119/47 L Pulse Oximetry 97 97 97 09/16/18 16:00 09/16/18 16:30 09/16/18 17:00 Temperature Pulse Rate 79 78 12 L Respiratory Rate 19 18 73 H Blood Pressure Blood Pressure [Right Arm] 125/57 L 112/52 L 104/49 L Pulse Oximetry 97 98 96 Oxygen Delivery Method Nasal Cannula Oxygen Flow Rate 2 Narrative Exam Narrative: GENERAL: 68-year-old man laying in bed with increased work of breathing. He did not cause in the middle of sentences. There was no use of accessory muscles of respiration. There was no pursed lip breathing HEENT:Normocephalic atraumatic pupils equal round reactive. Extraocular movement intact. Sclera and conjunctiva clear. Oropharynx clear NECK: Supple without thyromegaly bruits or jugular venous distention THORAX: No splinting present RESPIRATORY: There were markedly diminished breath sounds. There were no rales rhonchi are wheezes noted CARDIOVASCULAR: Regular rhythm S1-S2 normal no lifts heaves rubs murmurs present GI: Midline surgical scar. Extremely large ventral hernia. There was no tenderness rebound or guarding. Bowel sounds were present : No suprapubic or flank tenderness MUSCULOSKELETAL: Full range of motion no clubbin or cyanosis. There was trace pretibial edema NEUROLOGIC: Grossly physiologic PSYCHOLOGICAL: Anxious awake alert oriented x3 SKIN: No acute skin rashes Objective Labs Result Diagrams: 09/16/18 14:25 09/16/18 14:25 Labs: Laboratory Results - last 24 hr 09/16/18 09/16/18 09/16/18 14:25 14:25 14:30 WBC 22.0 H RBC 4.20 L Hgb 12.3 L Hct 38.7 L MCV 92.2 MCH 29.3 MCHC 31.8 RDW 14.9 H Plt Count 314 Neut % (Auto) 94.3 H Lymph % (Auto) 1.7 L [place] % (Auto) 3.8 Eos % (Auto) 0.0 L Baso % (Auto) 0.2 Neut # (Auto) 51024 H Lymph # (Auto) 400 L [place] # (Auto) 800 Eos # (Auto) 0 Baso # (Auto) 0 ABG pH 7.39 ABG pCO2 65.0 H* ABG pO2 101 H ABG HCO3 40 H ABG Total CO2 42 H ABG O2 Saturation 97 ABG Base Excess 15.0 H FiO2 3 Sodium 141 Potassium 4.4 Chloride 90 L Carbon Dioxide 41 H* BUN 22 H Creatinine 0.60 L Estimated GFR > 60.0 BUN/Creatinine Ratio 36.7 H Glucose 276 H Lactate Calcium 10.0 Magnesium 1.9 Total Creatine Kinase < 20 L CK-MB (CK-2) TNP CK-MB (CK-2) Rel Index TNP Troponin I < 0.012 B-Natriuretic Peptide < 100 Urine RBC Urine WBC Ur Squamous Epith Cells Urine Bacteria Ur Culture Indicated? 09/16/18 09/16/18 14:32 14:35 WBC RBC Hgb Hct MCV MCH MCHC RDW Plt Count Neut % (Auto) Lymph % (Auto) [place] % (Auto) Eos % (Auto) Baso % (Auto) Neut # (Auto) Lymph # (Auto) [place] # (Auto) Eos # (Auto) Baso # (Auto) ABG pH ABG pCO2 ABG pO2 ABG HCO3 ABG Total CO2 ABG O2 Saturation ABG Base Excess FiO2 Sodium Potassium Chloride Carbon Dioxide BUN Creatinine Estimated GFR BUN/Creatinine Ratio Glucose Lactate 3.4 H Calcium Magnesium Total Creatine Kinase CK-MB (CK-2) CK-MB (CK-2) Rel Index Troponin I B-Natriuretic Peptide Urine RBC 1-5/hpf Urine WBC 0-1/hpf Ur Squamous Epith Cells 0-1 /hpf Urine Bacteria None seen Ur Culture Indicated? Cult not indicated Assessment & Plan Assessment Narrative: 1. Acute on chronic hypoxic and hypercapnic respiratory failure respiratory failure -this is secondary to his COPD exacerbation -treat his underlying COPD exacerbation -maintain his O2 sat equal to a greater than 92 -maintaining on his 3 L of O2 -use Diamox for his diuretic as opposed to Lasix to help with his CO2 retention. -overall he appears to be compensated -serial BMPs to watch his CO2 level 2. Acute exacerbation of COPD -blood cultures, urine Legionella. Respiratory PCR panel -Solu-Medrol 80 mg IV q.8 hours -DuoNeb q.4 hours while awake and q.2h as needed -Pulmicort 500 mcg neb b.i.d. -Mucinex 600 mg p.o. b.i.d. -doxycycline 100 mg p.o. b.i.d. 3. Leukocytosis -questionably margination from use of his chronic steroid -serial CBCs 4. Diabetes mellitus type 2 -hospitalized hold his oral hypoglycemic -diabetic diet -sliding scale insulin 5. BPH -continue his Flomax
[2018-09-16 18:38] LABS: Reflexed Lactate in 2 Hours Y
[2018-09-16 19:07] LABS: Lactate 2HR (Lactic Acid Rflx) 1.7 mmol/L (0.7-2.1)
[2018-09-16] MEDS: BUDESONIDE 0.5 MG/2 ML NEB INH (20:10)
[2018-09-16] MEDS: DOXYCYCLINE HYCLATE 100 MG TABLET PO (21:25)
--- NOTE | 2018-09-16 21:49 | PC.NURSE ---
Pt SOB with talking, pursed lip breathing, O2 2L=93%, no cough or sputum; denies chest pain, denies anxiety; HRR, trace edema to bl ankles; bed alarm active and call light within reach
[2018-09-16] MEDS: INSULIN ASPART 100 UNIT/ML INSULN PEN SUBCUT (22:02)
[2018-09-17] VITALS (14 sets, daily range): BP systolic 124–158; BP diastolic 56–68; PULSE 64–89; RESP 16–24; TEMP 36.3–36.6; O2SAT 94–100
[2018-09-17] MEDS: methylPREDNISolone 125 MG/2 ML VIAL 80 MG IV ×2 (01:38→08:45)
--- NOTE | 2018-09-17 04:39 | PC.NURSE ---
Patient has denied pain this shift. Voiding in urinal at bedside. Wearing brace for hernia support. remains on telemetry.
[2018-09-17] MEDS: ALBUTEROL/IPRATROPIUM 3 ML AMPUL INH ×6 (05:11→20:21)
[2018-09-17] MEDS: BUDESONIDE 0.5 MG/2 ML NEB INH ×2 (05:11→17:07)
[2018-09-17 06:04] LABS: Add Manual Diff / Slide Review NO; Basophils Absolute Auto 0 /uL (0-100); Basophils Percent Auto 0.3 % (0-2); Eosinophils Absolute Auto 0 /uL (0-450); Hematocrit 36.1 % (41-53); Hemoglobin 11.5 g/dL (13.5-17.5); Lymphocytes Absolute Auto 300 /uL (1100-4500); Lymphocytes Percent Auto 1.9 % (25-40); Mean Corpuscular HGB Conc 31.8 % (30-36); Mean Corpuscular Hemoglobin 29.2 PG (26-34); Mean Corpuscular Volume 91.8 fL (80-100); Monocytes Absolute Auto 100 /uL (0-900); Monocytes Percent Auto 0.8 % (3-14); Neutrophils Absolute Auto 12900 /uL (1500-7000); Platelet Count 273 X10^3/uL (150-400); Red Blood Cell Count 3.94 X10^6/uL (4.5-5.9); Red Cell Distribution Width 14.7 % (11.6-14.8); White Blood Cell Count 13.3 X10^3/uL (4.5-11.0)
[2018-09-17 06:11] LABS: Blood Urea Nitrogen 23 mg/dL (9-20); Chloride 91 mmol/L (98-107); Estimated Glomerular Filt Rate > 60.0 mL/min (>60); Glucose 276 mg/dL (80-110); HEMOLYSIS < 15 (0-50); Potassium 4.4 mmol/L (3.4-5.1); Sodium 141 mmol/L (137-145)
[2018-09-17] MEDS: LORazepam 0.5 MG TABLET PO (06:17)
[2018-09-17 06:19] LABS: Carbon Dioxide 41 mmol/L (22-32)
[2018-09-17] MEDS: PANTOPRAZOLE 40 MG TABLET PO (06:35)
[2018-09-17] MEDS: INSULIN ASPART 100 UNIT/ML INSULN PEN SUBCUT ×4 (08:14→21:47)
[2018-09-17] MEDS: DOXYCYCLINE HYCLATE 100 MG TABLET PO (08:17)
[2018-09-17] MEDS: ENOXAPARIN 40 MG/0.4 ML SYRINGE SUBCUT (08:18)
--- NOTE | 2018-09-17 13:02 | CM.DANOTE ---
Patient is a 68 year old male who was admitted on 09/16/18 for SOB. Pt has [employer] and [employer] for insurance and her PCP is Dr. Rubens Olivier. EMR was reviewed. Per MD, pt has chronic COPD exacerbation and RT to work with pt today. SW met bedside with pt and explained role and pt confirmed that he still lives at home in [place] with his and 15 year old grandson who can provide some assist when he is out of school for the day. Pt has oxygen at baseline through [facility] and typically 3L. Pt denies any SNF hx but states he is still currently open to HH services through [facility] (previously [facility]). Pt preference is to return home with family at discharge and does not anticipate any further needs besides ongoing oxygen through [facility] and [facility]. SW confirmed with [facility] that pt is open to service with them and they will need Resume Orders and d/c summ faxed at discharge. SW faxed initial clinicals for [facility] to review. Plan: SW to follow closely to confirm pt is safe for d/c home with family and [facility] oxygen and [facility]. RODRIGO Lobo Discharge Planning/Care Management CM Discharge Assessment Start: 09/17/18 12:43 Freq: Status: Active Protocol: Document 09/17/18 12:43 BF (Rec: 09/17/18 12:46 BF [id number]) Discharge Planning Assessment Assigned Automatic Dry Starch Operator RODRIGO Oconnor DPOA/Assigned Designee Name none, but working on pwk Advance Directives? Yes: POLST Advance Directives on File Yes History Provided By Patient Medical Record Has Patient been admitted in last 30 No days? Prior Living Arrangements House Household Members spouse family Type of transporation used prior to Relies on Others admit Comment Patient resides at home with his spouse and 15 year old grandson who can do some assist. Independent with ADL's Yes Is patient alert and oriented? Yes Needs Assistance With Home Chores / Shopping Caregiver for Another Yes: 15 year old grandson lives with and provides some assist Community Services used prior to Oxygen Therapy admission: Physical Therapy Home Health Nurse Comment Open with [facility]) and has Oxygen through [facility]. 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 I can sit on it and it saves me some energy. pt is on home 02, 3 L [employer] Patient/Family Preference Home with Home Health Comment Likely home with [facility] when stable Discharge Plan Home Community Services Oxygen Therapy Physical Therapy Transportation Arrangement Likely spouse and grandson can provide transport at d/c after grandson is out of school for the day. If patient plan is home with home health Yes: is open to [facility] : Has signed face to face form been Health completed? Whiteboard Updated in Patient Room with Yes name and ext. # of Automatic Dry Starch Operator Review Status In Process Please Provide Date Initial DC 09/17/18 Assessment Was Performed Next Review Type Continued Stay Review
--- NOTE | 2018-09-17 13:05 | PC.NURSE ---
AM NOTE - awake, pt breathing is labored and pursed lipped, RR 28, 02 sat 3L 99%, bs w/inspir wheezes, dim, no cough,has large abd hernia and wears his own binder, later spouse in at bedside and brought in his itraconazole medication that we do not carry and meds sent to pharmacy, in and spoke to pt and spouse, pt req salas for lasix, however, prefers he use urinal, brought up bipap and RT up after lunch for tmt and pt states he has tried bipap before and does not want to do it unless absolutely necessary.
--- NOTE | 2018-09-17 14:30 | P.PN_ITS ---
Subjective Date Patient Seen: 09/17/18 Interval history: Chart reviewed patient seen and examined. Patient is markedly short of breath. He is using accessory muscles for breathing. He continues to have a nonproductive cough. He denies any chest pain or palpitations. Patient has previously been tried on BiPAP but he refuses this at this time. Patient has good oxygenation. Exam Vital Signs (past 8 hours): - 09/17/18 07:00 09/17/18 09:09 09/17/18 10:00 Temperature 98 F Pulse Rate 75 84 Respiratory Rate 18 22 Blood Pressure 128/59 L Pulse Oximetry 98 100 96 09/17/18 11:00 09/17/18 13:00 Temperature 97.6 F Pulse Rate 75 86 Respiratory Rate 16 24 Blood Pressure 125/60 Pulse Oximetry 98 99 Oxygen Delivery Method Nasal Cannula Oxygen Flow Rate 2 Narrative Exam Narrative: Ill appearing gentleman anxious with increased work of breathing Lungs: Decreased breath sounds S with poor airway movement bilateral Cardiac exam: Regular rate rhythm normal S1-S2 Abdomen: Soft nontender nondistended, large ventral hernia is palpated this is nontender Extremity no edema Objective Labs Result Diagrams: 09/17/18 05:29 09/17/18 05:29 Labs: Laboratory Results - last 24 hr 09/16/18 09/16/18 09/16/18 14:25 14:25 14:25 WBC 22.0 H RBC 4.20 L Hgb 12.3 L Hct 38.7 L MCV 92.2 MCH 29.3 MCHC 31.8 RDW 14.9 H Plt Count 314 Neut % (Auto) 94.3 H Lymph % (Auto) 1.7 L [place] % (Auto) 3.8 Eos % (Auto) 0.0 L Baso % (Auto) 0.2 Neut # (Auto) 66273 H Lymph # (Auto) 400 L [place] # (Auto) 800 Eos # (Auto) 0 Baso # (Auto) 0 ABG pH ABG pCO2 ABG pO2 ABG HCO3 ABG Total CO2 ABG O2 Saturation ABG Base Excess FiO2 Sodium 141 Potassium 4.4 Chloride 90 L Carbon Dioxide 41 H* BUN 22 H Creatinine 0.60 L Estimated GFR > 60.0 BUN/Creatinine Ratio 36.7 H Glucose 276 H Hemoglobin A1c 7.0 H Lactate Calcium 10.0 Magnesium 1.9 Total Creatine Kinase < 20 L CK-MB (CK-2) TNP CK-MB (CK-2) Rel Index TNP Troponin I < 0.012 B-Natriuretic Peptide < 100 Urine RBC Urine WBC Ur Squamous Epith Cells Urine Bacteria Ur Culture Indicated? 09/16/18 09/16/18 09/16/18 14:30 14:32 14:35 WBC RBC Hgb Hct MCV MCH MCHC RDW Plt Count Neut % (Auto) Lymph % (Auto) [place] % (Auto) Eos % (Auto) Baso % (Auto) Neut # (Auto) Lymph # (Auto) [place] # (Auto) Eos # (Auto) Baso # (Auto) ABG pH 7.39 ABG pCO2 65.0 H* ABG pO2 101 H ABG HCO3 40 H ABG Total CO2 42 H ABG O2 Saturation 97 ABG Base Excess 15.0 H FiO2 3 Sodium Potassium Chloride Carbon Dioxide BUN Creatinine Estimated GFR BUN/Creatinine Ratio Glucose Hemoglobin A1c Lactate 3.4 H Calcium Magnesium Total Creatine Kinase CK-MB (CK-2) CK-MB (CK-2) Rel Index Troponin I B-Natriuretic Peptide Urine RBC 1-5/hpf Urine WBC 0-1/hpf Ur Squamous Epith Cells 0-1 /hpf Urine Bacteria None seen Ur Culture Indicated? Cult not indicated 09/16/18 09/17/18 09/17/18 18:50 05:29 05:29 WBC 13.3 H RBC 3.94 L Hgb 11.5 L Hct 36.1 L MCV 91.8 MCH 29.2 MCHC 31.8 RDW 14.7 Plt Count 273 Neut % (Auto) 97.0 H Lymph % (Auto) 1.9 L [place] % (Auto) 0.8 L Eos % (Auto) 0.0 L Baso % (Auto) 0.3 Neut # (Auto) 27124 H Lymph # (Auto) 300 L [place] # (Auto) 100 Eos # (Auto) 0 Baso # (Auto) 0 ABG pH ABG pCO2 ABG pO2 ABG HCO3 ABG Total CO2 ABG O2 Saturation ABG Base Excess FiO2 Sodium 141 Potassium 4.4 Chloride 91 L Carbon Dioxide 41 H* BUN 23 H Creatinine 0.50 L Estimated GFR > 60.0 BUN/Creatinine Ratio 46.0 H Glucose 276 H Hemoglobin A1c Lactate 1.7 Calcium 10.0 Magnesium Total Creatine Kinase CK-MB (CK-2) CK-MB (CK-2) Rel Index Troponin I B-Natriuretic Peptide Urine RBC Urine WBC Ur Squamous Epith Cells Urine Bacteria Ur Culture Indicated? Assessment & Plan Assessment Narrative: Acute on chronic hypoxemic hypercapnic respiratory failure , present on admission Acute COPD exacerbation, present on admission Aspergillosis, present on admission Type 2 diabetes, chronic present on admission Hyperlipidemia, chronic, present on admission Benign prostatic hypertrophy, chronic Plan Narrative: Repeat ABGs show improvement. However the patient continues to have increased work of breathing. Will discontinue his Solu-Medrol and switch h im to prednisone. Will continue with the albuterol Atrovent inhalers. Will add as needed inhalers q.2 hours. Will continue the budesonide inhaler. Will start the patient on IV morphine to help with his work of breathing. He indicates he is a full code but does not want intubation. Patient is refusing BiPAP. Thankfully he does not require that at this time. The patient is also under treatment for aspergillosis with itraconazole. Will resume after Consul using his home medication. Will discontinue doxycycline. Will obtain a respiratory panel. Will obtain a sputum culture as well.
[2018-09-17 14:35] LABS: HCO3 ABG 40 mmol/L (22-26); PCO2 ABG 57.8 mmHg (35-45); PO2 ABG 85 mmHg (80-100); pH ABG 7.45 (7.35-7.45)
[2018-09-17 14:36] LABS: Oxygen Saturation ABG 96 % (95-100); TCO2 ABG 41 mmol/L (21-31)
[2018-09-17] MEDS: FUROSEMIDE 40 MG TABLET PO (15:47)
[2018-09-17] MEDS: predniSONE 20 MG TABLET 40 MG PO (15:47)
[2018-09-17] MEDS: MORPHINE 2 MG/ML INJ 1 MG IV (15:53)
[2018-09-17] MEDS: ITRACONAZOLE 200 MG 200 EACH PO (17:11)
[2018-09-17 18:55] LABS: Adenovirus Not Detected (Not Detect); Bordetella pertussis Not Detected (Not Detect); Chlamydophila pneumoniae Not Detected (Not Detect); Coronavirus 229E Not Detected (Not Detect); Coronavirus HKU1 Not Detected (Not Detect); Coronavirus NL 63 Not Detected (Not Detect); Coronavirus OC43 Not Detected (Not Detect); Human Metapneumovirus Not Detected (Not Detect); Human Rhinovirus/Enterovirus Not Detected (Not Detect); Influenza A Not Detected (Not Detect); Influenza B Not Detected (Not Detect); Mycoplasma pneumoniae Not Detected (Not Detect); Parainfluenza Virus 1 Not Detected (Not Detect); Parainfluenza Virus 2 Not Detected (Not Detect); Parainfluenza Virus 3 Not Detected (Not Detect); Parainfluenza Virus 4 Not Detected (Not Detect); Respiratory Syncytial Virus Not Detected (Not Detect)
[2018-09-17 22:02] LABS: Fractionated Inspired Oxygen 28
--- NOTE | 2018-09-17 22:20 | PC.NURSE ---
1500- assumed care of pt from outgoing shift. PT awake and alert. Pt has increased work of breathing, accessory muscle use as well. given prn morphine, this helped tremendously. Pt ate dinner and got sob. pt on 2L nc and tolerating. family left around dinner time. pt calls and is appropriate. bed alarm on with admin of morphine. pt uses urinal. pleasant and cooperative. blood sugars have been significantly elevated. given novolog as ordered. will continue to monitor.
[2018-09-18] VITALS (15 sets, daily range): BP systolic 138–151; BP diastolic 66–76; PULSE 66–89; RESP 16–22; TEMP 36.4–36.6; O2SAT 89–100
[2018-09-18] MEDS: BUDESONIDE 0.5 MG/2 ML NEB INH ×2 (04:19→19:43)
[2018-09-18] MEDS: ALBUTEROL/IPRATROPIUM 3 ML AMPUL INH ×4 (04:19→19:43)
[2018-09-18] MEDS: PANTOPRAZOLE 40 MG TABLET PO (06:09)
[2018-09-18] MEDS: predniSONE 20 MG TABLET 40 MG PO (08:12)
[2018-09-18] MEDS: INSULIN ASPART 100 UNIT/ML INSULN PEN SUBCUT ×4 (08:12→20:56)
[2018-09-18] MEDS: ITRACONAZOLE 200 MG 200 EACH PO ×2 (08:12→17:21)
[2018-09-18] MEDS: ENOXAPARIN 40 MG/0.4 ML SYRINGE SUBCUT (08:12)
[2018-09-18] MEDS: FUROSEMIDE 40 MG TABLET PO (08:12)
[2018-09-18] MEDS: LORazepam 0.5 MG TABLET PO ×2 (08:14→19:49)
[2018-09-18] MEDS: SODIUM CHLORIDE 0.9% FLUSH 10 ML IV ×2 (10:41→20:56)
[2018-09-18] MEDS: MORPHINE 2 MG/ML INJ 1 MG IV (14:28)
--- NOTE | 2018-09-18 14:28 | PM.PN.1 ---
Subjective Date Patient Seen: 09/18/18 Interval history: Chart reviewed patient seen and examined. Patient reports breathing is a little better however he continues to have increased work of breathing. He continues to have a cough. He notes that he was able to sleep last night with the addition of morphine. We discussed the possibility of home hospice. However he and his were informed that if he went home on hospice they would not continue the itraconazole. As they would like to continue treatment for Aspergillus the patient continues on home health. He is on 2 L now. Patient typically uses 3 L at home as needed. Exam Vital Signs (past 8 hours): - 09/18/18 08:00 09/18/18 08:47 09/18/18 09:00 Temperature 97.7 F Pulse Rate 68 Respiratory Rate 18 Blood Pressure 151/76 H Pulse Oximetry 96 99 97 09/18/18 09:19 09/18/18 09:25 Temperature Pulse Rate 89 Respiratory Rate 22 Blood Pressure Pulse Oximetry 89 L 97 Oxygen Delivery Method Nasal Cannula Oxygen Flow Rate 2 Narrative Exam Narrative: Ill appearing male who appears short of breath Lungs: Decreased breath sounds with poor airway movement Cardiac exam: Regular rate rhythm normal S1-S2 Abdomen: Soft nontender with an obvious ventral hernia easily palpable Extremities: No edema Objective Labs Result Diagrams: 09/17/18 05:29 09/17/18 05:29 Labs: Laboratory Results - last 24 hr 09/17/18 09/17/18 17:20 Unknown ABG pH 7.45 ABG pCO2 57.8 H ABG pO2 85 ABG HCO3 40 H ABG Total CO2 41 H ABG O2 Saturation 96 ABG Base Excess 16.0 H FiO2 28 Chlamy pneumoniae PCR Not detected Adenovirus (PCR) Not detected B.parapertussis DNA PCR Not detected Coronavirus OC43 (PCR) Not detected Coronavirus HKU1 (PCR) Not detected Coronavirus 229E (PCR) Not detected Coronavirus NL63 (PCR) Not detected Human Metapneumovir PCR Not detected Influenza Type A (PCR) Not detected Influenza Type B (PCR) Not detected M. pneumoniae (PCR) Not detected Parainfluenza 1 (PCR) Not detected Parainfluenza 2 (PCR) Not detected Parainfluenza 3 (PCR) Not detected Parainfluenza 4 (PCR) Not detected RSV (PCR) Not detected Entero/Rhino (PCR) Not detected Assessment & Plan Assessment Narrative: 1. Acute on chronic hypoxemic hypercapnic respiratory failure, present on admission 2. Acute exacerbation of COPD, present on admission 3. Aspergillus pneumonia, present on admission 4. Type 2 diabetes, chronic 5. Hyperlipidemia, chronic 6. Benign prostatic hypertrophy, chronic Plan Narrative: Will continue nebulizers oxygen and steroids. Will obtain a procalcitonin and sputum culture. If results are negative will defer additional antibiotics. In the interim will continue itraconazole. Anticipate the patient will be discharged home on oxygen and with home health. Patient and to consider hospice at the end of treatment with itraconazole.
--- NOTE | 2018-09-18 15:01 | PC.NURSE ---
Day Shift Pt denies pain however is having a lot of work of breathing and SOB. received ativan this AM for anxiety and per MD request, gave pt 1mg IV morphine and he states this helped. urinating without issue. hourly rounding provided, call light within reach.
[2018-09-18 15:31] LABS: Procalcitonin < 0.05 ng/mL (<0.5)
[2018-09-19] VITALS (17 sets, daily range): BP systolic 130–165; BP diastolic 65–79; PULSE 64–104; RESP 16–25; TEMP 36.3–36.4; O2SAT 93–100
[2018-09-19] MEDS: BUDESONIDE 0.5 MG/2 ML NEB INH ×2 (04:40→19:53)
[2018-09-19] MEDS: ALBUTEROL/IPRATROPIUM 3 ML AMPUL INH ×5 (04:40→19:53)
[2018-09-19 06:02] LABS: Add Manual Diff / Slide Review NO; Basophils Absolute Auto 0 /uL (0-100); Basophils Percent Auto 0.3 % (0-2); Eosinophils Absolute Auto 0 /uL (0-450); Hematocrit 39.6 % (41-53); Hemoglobin 12.6 g/dL (13.5-17.5); Lymphocytes Absolute Auto 600 /uL (1100-4500); Lymphocytes Percent Auto 4.1 % (25-40); Mean Corpuscular HGB Conc 31.8 % (30-36); Mean Corpuscular Hemoglobin 29.1 PG (26-34); Mean Corpuscular Volume 91.6 fL (80-100); Monocytes Absolute Auto 1000 /uL (0-900); Monocytes Percent Auto 6.8 % (3-14); Neutrophils Absolute Auto 13600 /uL (1500-7000); Neutrophils Percent Auto 88.8 % (50-75); Platelet Count 303 X10^3/uL (150-400); Red Blood Cell Count 4.32 X10^6/uL (4.5-5.9); Red Cell Distribution Width 14.9 % (11.6-14.8); White Blood Cell Count 15.2 X10^3/uL (4.5-11.0)
[2018-09-19 06:12] LABS: BUN Creatinine Ratio 51.7 (6-22); Blood Urea Nitrogen 31 mg/dL (9-20); Chloride 92 mmol/L (98-107); Estimated Glomerular Filt Rate > 60.0 mL/min (>60); Glucose 182 mg/dL (80-110); HEMOLYSIS < 15 (0-50); Potassium 4.6 mmol/L (3.4-5.1); Sodium 141 mmol/L (137-145)
[2018-09-19 06:25] LABS: Carbon Dioxide 41 mmol/L (22-32)
--- NOTE | 2018-09-19 06:29 | PC.NURSE ---
Shift Note: Lab called with critical value of CO2: 41. Pt has no c/o of shortness of breath and is 100% on 3L by NC. Notified Dr Cruz who made no new orders at this time.
[2018-09-19 06:38] LABS: B Type Natriuretic Peptide < 100 (<100)
[2018-09-19] MEDS: PANTOPRAZOLE 40 MG TABLET PO (07:02)
[2018-09-19] MEDS: FUROSEMIDE 40 MG TABLET PO (08:17)
[2018-09-19] MEDS: predniSONE 20 MG TABLET 40 MG PO (08:17)
[2018-09-19] MEDS: ITRACONAZOLE 200 MG 200 EACH PO ×2 (08:18→17:35)
[2018-09-19] MEDS: INSULIN ASPART 100 UNIT/ML INSULN PEN SUBCUT ×4 (08:18→20:49)
[2018-09-19] MEDS: ENOXAPARIN 40 MG/0.4 ML SYRINGE SUBCUT (08:18)
[2018-09-19] MEDS: LORazepam 0.5 MG TABLET PO ×2 (08:41→16:13)
[2018-09-19] MEDS: MORPHINE 2 MG/ML INJ 1 MG IV ×5 (08:41→22:37)
[2018-09-19] MEDS: SODIUM CHLORIDE 0.9% FLUSH 10 ML IV ×2 (10:54→20:33)
--- NOTE | 2018-09-19 17:07 | PM.PN.1 ---
Subjective Date Patient Seen: 09/19/18 Interval history: Patient reports he continues to feel short of breath. He does not feel that he is back to his baseline. His breathing does appear to be a little bit easier. However he continues to require 2-3 L to be comfortable. Minimal activity leads to shortness of breath. Exam Vital Signs (past 8 hours): - 09/19/18 09:19 09/19/18 10:18 09/19/18 13:40 Temperature 97.5 F L Pulse Rate 93 H 76 104 H Respiratory Rate 22 20 20 Blood Pressure 156/79 H Pulse Oximetry 96 95 95 09/19/18 14:13 09/19/18 15:40 09/19/18 16:24 Temperature 97.5 F L 97.5 F L Pulse Rate 86 88 Respiratory Rate 20 18 Blood Pressure 130/65 144/74 H Pulse Oximetry 95 95 95 Oxygen Delivery Method Nasal Cannula Oxygen Flow Rate 3 Narrative Exam Narrative: Ill appearing male who has increased work of breathing at rest HEENT: Normocephalic atraumatic Lungs: Decreased breath sounds with minimal airway moved Cardiac exam: Regular rate and rhythm normal S1-S2 Abdomen: A palpable large ventral hernia nontender to palpation Extremities: No edema Objective Labs Result Diagrams: 09/19/18 05:23 09/19/18 05:23 Labs: Laboratory Results - last 24 hr 09/19/18 09/19/18 05:23 05:23 WBC 15.2 H RBC 4.32 L Hgb 12.6 L Hct 39.6 L MCV 91.6 MCH 29.1 MCHC 31.8 RDW 14.9 H Plt Count 303 Neut % (Auto) 88.8 H Lymph % (Auto) 4.1 L Branch % (Auto) 6.8 Eos % (Auto) 0.0 L Baso % (Auto) 0.3 Neut # (Auto) 64518 H Lymph # (Auto) 600 L Branch # (Auto) 1000 H Eos # (Auto) 0 Baso # (Auto) 0 Sodium 141 Potassium 4.6 Chloride 92 L Carbon Dioxide 41 H* BUN 31 H Creatinine 0.60 L Estimated GFR > 60.0 BUN/Creatinine Ratio 51.7 H Glucose 182 H Calcium 10.0 B-Natriuretic Peptide < 100 Assessment & Plan Assessment & Plan narrative: Acute on chronic hypoxemic respiratory failure, present on admission Acute COPD exacerbation, present on admission Aspergillious, present on admission Hyperlipidemia Hypertension Benign prostatic hypertrophy Patient will continue on oxygen, albuterol Atrovent nebulizers, steroids and steroid inhaler. There is no evidence of pneumonia either on x-ray or by procalcitonin. Patient will continue itraconazole for Aspergillus. Anticipate discharge home in 1-2 days.
[2018-09-19] MEDS: DOCUSATE 100 MG CAPSULE PO (20:34)
[2018-09-20] VITALS (16 sets, daily range): BP systolic 134–152; BP diastolic 66–84; PULSE 65–96; RESP 16–28; TEMP 34.3–36.7; O2SAT 92–100
[2018-09-20] MEDS: BUDESONIDE 0.5 MG/2 ML NEB INH ×2 (05:19→19:49)
[2018-09-20] MEDS: ALBUTEROL/IPRATROPIUM 3 ML AMPUL INH ×4 (05:20→19:49)
[2018-09-20] MEDS: LORazepam 0.5 MG TABLET PO ×2 (06:36→14:58)
[2018-09-20] MEDS: ENOXAPARIN 40 MG/0.4 ML SYRINGE SUBCUT (08:44)
[2018-09-20] MEDS: predniSONE 20 MG TABLET 40 MG PO (08:45)
[2018-09-20] MEDS: FUROSEMIDE 40 MG TABLET PO (08:45)
[2018-09-20] MEDS: PANTOPRAZOLE 40 MG TABLET PO (08:45)
[2018-09-20] MEDS: SODIUM CHLORIDE 0.9% FLUSH 10 ML IV ×2 (08:46→21:30)
[2018-09-20] MEDS: ITRACONAZOLE 200 MG 200 EACH PO ×2 (08:46→16:54)
[2018-09-20] MEDS: INSULIN ASPART 100 UNIT/ML INSULN PEN SUBCUT ×3 (08:47→16:33)
[2018-09-20] MEDS: MORPHINE 2 MG/ML INJ 1 MG IV ×4 (10:53→20:21)
--- NOTE | 2018-09-20 11:18 | PM.PN.1 ---
Subjective Date Patient Seen: 09/20/18 Interval history: Patient reports feeling short of breath, he has gurgling and productive sputum. He reports feeling very weak. He does not feel significantly improved since admission. Exam Vital Signs (past 8 hours): - 09/20/18 03:45 09/20/18 05:20 09/20/18 08:00 Temperature 97.2 F L 97.4 F L Pulse Rate 65 66 68 Respiratory Rate 20 20 22 Blood Pressure 147/77 H 134/70 Pulse Oximetry 100 98 98 09/20/18 10:05 Temperature Pulse Rate 81 Respiratory Rate 18 Blood Pressure Pulse Oximetry 95 Oxygen Delivery Method Nasal Cannula Oxygen Flow Rate 3 Narrative Exam Narrative: Ill appearing male short of breath Lungs: Decreased breath sounds with scattered rhonchi bilaterally Cardiac exam: Regular rate and rhythm normal S1-S2 Abdomen soft nontender nondistended without hepatosplenomegaly Lower extremities no edema Objective Labs Result Diagrams: 09/19/18 05:23 09/19/18 05:23 Assessment & Plan Assessment & Plan narrative: Acute on chronic hypoxic respiratory failure, present on admission Acute COPD exacerbation, present on admission Aspergillosis, present on admission Hypertension Hyperlipidemia Benign prostatic hypertrophy Plan will continue oxygen nebulizer and steroids. Patient will continue itraconazole for his Aspergillus. He will referred back to home health and consideration of hospice when appropriate. Anticipate discharge home in 1 day.
[2018-09-21] VITALS (15 sets, daily range): BP systolic 129–156; BP diastolic 62–86; PULSE 66–93; RESP 18–22; TEMP 36.3–36.6; O2SAT 95–100
[2018-09-21] MEDS: MORPHINE 2 MG/ML INJ 1 MG IV ×6 (02:47→21:00)
--- NOTE | 2018-09-21 03:36 | PC.NURSE ---
0247 Requested 1 mg. of Morphine to help his breathing. 1 mg. of Morphine IVP admin. Will cont. with POC & monitor.
[2018-09-21] MEDS: BUDESONIDE 0.5 MG/2 ML NEB INH ×2 (05:41→19:33)
[2018-09-21] MEDS: ALBUTEROL/IPRATROPIUM 3 ML AMPUL INH ×4 (05:41→19:33)
[2018-09-21] MEDS: SODIUM CHLORIDE 0.9% FLUSH 10 ML IV ×3 (06:00→21:01)
--- NOTE | 2018-09-21 06:32 | PC.NURSE ---
0620 C/O dysuria & painful urination, states I might have a bladder infection. Bladder scanned noted 760 in the bladder. NISA Andrew notified orders received to do I&O cath. & send UAC. I&O cath done @ 0615 & noted 750 cc out sl. cloudy dark yellow urine. UAC sent, pt. states I feel a lot better now that my bladder is drained. Also mentioned to NISA Andrew, pt. taking Flomax @ home. Will report to day RN & monitor.
[2018-09-21 06:38] LABS: WBC Urine None Seen (0-5/HPF)
[2018-09-21] MEDS: PANTOPRAZOLE 40 MG TABLET PO (06:53)
[2018-09-21 07:04] LABS: Appearance Urine UA CLEAR; Bilirubin Urine UA NEGATIVE (NEGATIVE); Color Urine UA YELLOW; Glucose Urine UA TRACE g/dL (Negative); Ketones Urine UA NEGATIVE (NEGATIVE); Leukocyte Esterase Urine UA NEGATIVE (NEGATIVE); Nitrite Urine UA NEGATIVE (Negative); Occult Blood Urine UA 2+ (Negative); Protein Urine UA NEGATIVE (Negative); Urobilinogen Urine UA 0.2 E.U./dL (0.2)
[2018-09-21 07:32] LABS: RBC Urine 10-30/HPF (0-5/HPF)
[2018-09-21 07:33] LABS: Bacteria Urine Occasional (0-1); Culture Indicated Urine Cult Not Indicated
[2018-09-21] MEDS: TAMSULOSIN 0.4 MG CAPSULE PO (08:16)
[2018-09-21] MEDS: ITRACONAZOLE 200 MG 200 EACH PO ×2 (08:16→17:19)
[2018-09-21] MEDS: ENOXAPARIN 40 MG/0.4 ML SYRINGE SUBCUT (08:16)
[2018-09-21] MEDS: INSULIN ASPART 100 UNIT/ML INSULN PEN SUBCUT ×4 (08:17→21:01)
[2018-09-21] MEDS: FUROSEMIDE 40 MG TABLET PO (08:17)
[2018-09-21] MEDS: guaiFENesin ER 600 MG TAB PO (08:17)
[2018-09-21] MEDS: predniSONE 20 MG TABLET 40 MG PO (08:17)
--- NOTE | 2018-09-21 11:35 | CM.DPC ---
DCP: continued: case received, EMR reviewed and plan for home with Abelardo CESAR noted via handoff from RODRIGO Membreno/09/20. Case discussed in Team Rounds and Dr. Herrera noted that his understanding from LAVERNE Pires, caring today for pt, is that the plan was for snf at d/c. PT and OT orders were then obtained. Met now with pt to check in, introduced self and role. Pt confirms he does need the snf level of care. He was at a snf a couple of years ago [facility], now converted to an assisted living. SNF choice list: discussed: decision: [facility] Referral to [facility]. Lexie has reviewed and says [facility] can accept pt when stable for d/c. Payer: Medicare and : INPT admission status order: 09/16. Confirmed by FELICITAS GALLOWAY. P: unclear when pt will be ready for d/c: Plan: [facility] when stable for same. Need: PAS[facility].
--- NOTE | 2018-09-21 13:23 | PM.PN.1 ---
Subjective Date Patient Seen: 09/21/18 Interval history: He is seen today to follow-up his COPD, weakness, urinary retention. His chest x-ray from admission shows no infiltrate. He is noted to have stenotrophomonas along with mold on sputum cultures and is now on itraconazole but not on any antibacterial treatment. He appears to have no signs of pneumonia and thus this would appear to be a colonization. He will need PT and OT today as he is quite weak and is now willing to go through a rehab SNF stay. Exam Vital Signs (past 8 hours): - 09/21/18 05:41 09/21/18 06:00 09/21/18 07:49 Temperature 97.9 F 97.5 F L Pulse Rate 88 73 82 Respiratory Rate 22 18 18 Blood Pressure 145/83 H 156/86 H Pulse Oximetry 96 95 97 09/21/18 08:15 09/21/18 08:46 09/21/18 09:15 Temperature Pulse Rate Respiratory Rate Blood Pressure Pulse Oximetry 97 98 98 09/21/18 09:58 09/21/18 12:00 Temperature 97.7 F Pulse Rate 91 H 93 H Respiratory Rate 22 18 Blood Pressure 145/77 H Pulse Oximetry 97 96 Oxygen Delivery Method Nasal Cannula Oxygen Flow Rate 3 Narrative Exam Narrative: He is alert and oriented x3, in no apparent distress. Heart is regular rate and rhythm without murmur. Lungs have diminished air flow diffusely. Extremities have no ankle edema. Abdomen has a large ventral hernia at the size of a soccer ball. Objective Labs Result Diagrams: 09/19/18 05:23 09/19/18 05:23 Labs: Laboratory Results - last 24 hr 09/21/18 06:20 Urine Color Yellow Urine Appearance Clear Urine pH 6.0 Ur Specific [place] 1.020 Urine Protein Negative Urine Glucose (UA) Trace H Urine Ketones Negative Urine Occult Blood 2+ H Urine Nitrate Negative Urine Bilirubin Negative Urine Urobilinogen 0.2 Ur Leukocyte Esterase Negative Urine RBC 10-30/hpf H Urine WBC None seen Urine Bacteria Occasional (0-1) Ur Culture Indicated? Cult not indicated Assessment & Plan Assessment & Plan narrative: Acute on chronic hypoxic respiratory failure, present on admission - continue prednisone, Spiriva, lorazepam, albuterol, budesonide - anticipate discharge for rehab to a local senior living facility tomorrow. Acute COPD exacerbation, present on admission - continue oxygen and consider change to IV steroids. Aspergillosis - Mold and Stenotrophomonas Sputum growth, present on admission -continue itraconazole -consider pseudomonal coverage for this apparent colonization Hypertension Hyperlipidemia Benign prostatic hypertrophy -several episodes of acute urinary obstruction with symptomatic bladder distension today and so a Paula catheter was placed which will need to be weaned off soon. The Flomax was resumed this morning. Plan will continue oxygen nebulizer and steroids. Patient will continue itraconazole for his Aspergillus. He will referred back to home health and consideration of hospice when appropriate. Anticipate discharge to SNF in 1 day.
--- NOTE | 2018-09-21 13:37 | OT.IP.EVAL ---
Current Diagnoses Chronic obstructive pulmonary disease with (acute) exacerbation (09/16/18) Chronic obstructive pulmonary disease, unspecified (09/16/18) Past Medical History (Last Reviewed 09/16/18 @ 14:20 by Mar Ortega DO) Anxiety (Chronic Unknown) Peripheral vascular disease (Chronic Unknown) Hx of small bowel obstruction (Resolved 03/2015) Hyperlipemia (Chronic Unknown) Nontuberculous mycobacterial infection (Chronic 2014) Coronary artery disease (Chronic Unknown) History of colon cancer (Resolved ~2010) BPH (benign prostatic hyperplasia) (Chronic Unknown) COPD (chronic obstructive pulmonary disease) (Chronic Unknown) Diabetes (Chronic Unknown) COPD (chronic obstructive pulmonary disease) (Inactive) Dependent edema (Inactive) Surgical History (Last Reviewed 09/16/18 @ 14:20 by Mar Ortega DO) H/O cardiac catheterization (Resolved 2010) S/P small bowel resection (Resolved 03/2015) Hx of hernia repair (Resolved 2008) S/P colon resection (Resolved 2010) Hx of cataract surgery (Resolved 2014) Occupational Therapy Inpatient Evaluation/Re-Eval M1 PT/OT-IP Prior Functional Status Start: 09/21/18 12:49 Freq: NEEDED Status: Active Protocol: Document 09/21/18 12:49 [facility] (Rec: 09/21/18 13:37 [facility] [email or web address]) Medical Review Prior Functional Status Medical History Reviewed Yes Communication Independent Mobility and Gait Pt states uses 4WW in the house and use of motorized scooter out of the house. Activities of Daily Living and IADL's Pt states able to do ADL's and assist with IADL's load the noteman and use of 4ww to sit and cook at times. Pt states does his own medications and pays the bills. Prior Functional Level (Other details) Per pt use of 3L o2 at home and have 50ft of tubing that reaching all areas of the house. Social History Household Members spouse family Living Arrangements House Number of Floors (Floors) One Floor Number of Stairs To Enter/Railing? Use of ramp to enter the house . Home Environment Standard Height Toilet High Toilet Walk in Shower Home Equipment Four Wheel Walker Manual Wheelchair Power Wheelchair/Scooter Additional Social History Comment Pt's grandson lives at the house and able to assist at times. M2 OT-IP Current Condition Start: 09/21/18 12:49 Freq: Status: Active Protocol: Document 09/21/18 12:49 [facility] (Rec: 09/21/18 13:37 [facility] [email or web address]) Occupational Therapy Current Condition Current Condition Evaluation Date 09/21/18 Treatment Diagnosis Acute COPD, weakness Diagnosis Onset Date 09/16/18 M3 OT- IP Subjective and Pain Start: 09/21/18 12:49 Freq: Status: Active Protocol: Document 09/21/18 12:49 [facility] (Rec: 09/21/18 13:37 [facility] [email or web address]) OT- Subjective Occupational Therapy Visit Type Type Initial Evaluation Visit Start Time 11:35 Visit Stop Time 12:00 Total Visit Minutes 25 Occupational Therapy Visit Comments Patient Comments Pt agreeable to get up and wanting to try to use the urinal. OT Pain Assessment Pain When Pain Assessed At Rest Pain Present Pain Present Denied Pain M4 OT- IP ADL's Start: 09/21/18 12:49 Freq: Status: Active Protocol: Document 09/21/18 12:49 [facility] (Rec: 09/21/18 13:37 [facility] [email or web address]) OT ADL-Dressing Comments OT Dressing Comments Pt has a binder for hernia. OT ADL-Toileting General Evaluation Toileting Ability Moderate Assistance Devices Toileting Assistive Devices Urinal Comments OT Toileting Comments MOUNA to stand and to help keep pt's balance and another person to assist to hold urinal in place. OT ADL-Bathing Comments OT Bathing Comments Pt too tired to attempt today. M5 OT- IP IADL's Start: 09/21/18 12:49 Freq: Status: Active Protocol: Document 09/21/18 12:49 [facility] (Rec: 09/21/18 13:37 [facility] [email or web address]) OT-Instrumental Activities of Daily Living Medication Management Medication Management Comments Pt states does his own medications M6 OT- IP Functional Cognition Start: 09/21/18 12:49 Freq: Status: Active Protocol: Document 09/21/18 12:49 [facility] (Rec: 09/21/18 13:37 [facility] [email or web address]) Cognitive Factors Limiting Selfcare Function Cognitive Ability Level of Alertness Alert Patient Orientation Name Place Situation Attention Span Ability Capable of Focused Attention Capable of Sustained Attention Ability to Follow Commands Able to Follow Multi-Step Commands Cognitive Comments Cognitive Assessment Comments Pt very tired today and only able to tolerate standing to attempt to urinate. Pt able to follow multiple commands OT- Vision and Hearing OT- Hearing Assessment OT- Hearing Assessment WFL M7 OT- IP Mobility and Balance Start: 09/21/18 12:49 Freq: Status: Active Protocol: Document 09/21/18 12:49 [facility] (Rec: 09/21/18 13:37 [facility] [email or web address]) OT- Bed Mobility Assessment Rolling Type of Rolling Roll to Left Level of Assistance Standby Assistance 1 Person Assistance Bedrails Supine to Sit Supine to Sit Assist Standby Assistance 1 Person Assistance Bedrails Sit to Supine Sit to Supine Assist Standby Assistance 1 Person Assistance Bedrails Scooting Scooting to Edge of Bed Standby Assistance 1 Person Assistance OT-Transfer Assessment Sit to and From Stand Sit to and from Stand Minimal Assistance Moderate Assistance 1 Person Assistance Comments Mobility Comments Pt only able to tolerate standing HR 106 and o2 on 3L 92-94%. Pt too tired to attempt to do anymore at this time. OT- Balance Assessment Sitting Balance and Reactions Static Sitting Balance Ability Normal Dynamic Sitting Balance Ability Good Standing Balance and Reactions Static Standing Balance Ability Fair M8 OT- IP Objective Assessments Start: 09/21/18 12:49 Freq: Status: Active Protocol: Document 09/21/18 12:49 [facility] (Rec: 09/21/18 13:37 [facility] [email or web address]) OT Gross Range of Motion Upper Extremity Range of Motion Assessment Within Functional Limits OT Strength Comments Strength Comments BUE strength 4/5 M9 OT- IP Assessment and Plan Start: 09/21/18 12:49 Freq: Status: Active Protocol: Document 09/21/18 12:49 [facility] (Rec: 09/21/18 13:37 [facility] [email or web address]) OT Summary Assessment and Plan Potential Rehabilitation Potential Good Analytic Complexity at Evaluation Low Summary OT Impairments Strength Balance Functional Mobility Grooming Dressing Toileting Bathing Toilet Transfers Shower Transfers Progress Towards Goals Slow Progress due to Medical Issues Slow Progress due to Activity Tolerance Assessment Summary Pt low complexity and main barrier is decreased activity tolerance and strength. Pt only able to tolreate standing x2. First attempt MOUNA and second time needing MODA with FWW and not able to do anymore for OT eval. Pt will benefit from skilled rehab prior to going home. Goals Grooming Goal Standby Assistance Dressing Goal Standby Assistance Toileting Goal Standby Assistance Bathing Goal Minimal Assistance Toilet Transfer Goal Standby Assistance Shower Transfer Goal Contact Guard Assistance Patient/Caregiver Education Goal Demonstrate Energy Conservation and Pacing Days to Meet Goals 7 Frequency of Treatment Frequency Of Treatment Once a Day Treatment Plan OT Treatment Plan ADL Training Functional Mobility Patient/Family Education Discharge Planning Discharge Recommendations OT Discharge Recommendations SNF Rehab Home Equipment Needs Shower chair, possible FWW
--- NOTE | 2018-09-21 14:00 | PT.IIE ---
Current Diagnoses Chronic obstructive pulmonary disease with (acute) exacerbation (09/16/18) Chronic obstructive pulmonary disease, unspecified (09/16/18) Surgical History (Last Reviewed 09/16/18 @ 14:20 by Mar Ortega DO) H/O cardiac catheterization (Resolved 2010) S/P small bowel resection (Resolved 03/2015) Hx of hernia repair (Resolved 2008) S/P colon resection (Resolved 2010) Hx of cataract surgery (Resolved 2014) Medical History (Last Reviewed 09/16/18 @ 14:20 by Mar Ortega DO) Anxiety (Chronic Unknown) Peripheral vascular disease (Chronic Unknown) Hx of small bowel obstruction (Resolved 03/2015) Hyperlipemia (Chronic Unknown) Nontuberculous mycobacterial infection (Chronic 2014) Coronary artery disease (Chronic Unknown) History of colon cancer (Resolved ) BPH (benign prostatic hyperplasia) (Chronic Unknown) COPD (chronic obstructive pulmonary disease) (Chronic Unknown) Diabetes (Chronic Unknown) COPD (chronic obstructive pulmonary disease) (Inactive) Dependent edema (Inactive) Physical Therapy Inpatient Evaluation/Re-Eval M1 PT/OT-IP Prior Functional Status Start: 09/21/18 12:49 Freq: NEEDED Status: Active Protocol: Document 09/21/18 12:49 [facility] (Rec: 09/21/18 13:37 [facility] [email or web address]) Medical Review Prior Functional Status Medical History Reviewed Yes Communication Independent Mobility and Gait Pt states uses 4WW in the house and use of motorized scooter out of the house. Activities of Daily Living and IADL's Pt states able to do ADL's and assist with IADL's load the customer service advocate and use of 4ww to sit and cook at times. Pt states does his own medications and pays the bills. Prior Functional Level (Other details) Per pt use of 3L o2 at home and have 50ft of tubing that reaching all areas of the house. Social History Household Members spouse family Living Arrangements House Number of Floors (Floors) One Floor Number of Stairs To Enter/Railing? Use of ramp to enter the house . Home Environment Standard Height Toilet High Toilet Walk in Shower Home Equipment Four Wheel Walker Manual Wheelchair Power Wheelchair/Scooter Additional Social History Comment Pt's grandson lives at the house and able to assist at times. M1 PT/OT-IP Prior Functional Status Start: 09/21/18 14:40 Freq: NEEDED Status: Active Protocol: Document 09/21/18 14:00 [facility] (Rec: 09/21/18 15:00 [facility] [email or web address]) Medical Review Prior Functional Status Medical History Reviewed Yes Communication able to make needs known Mobility and Gait pt stated that he is independent with all mobilities and ambulation using 4WW indoors. uses a manual w/c to get from the house to the car. uses an electric scooter for outdoor mobility. (stated that he just got the electric scooter ~ 3 weeks ago) Activities of Daily Living and IADL's Per OT's note: Pt states able to do ADL's and assist with IADL's load the customer service advocate and use of 4ww to sit and cook at times. Pt states does his own medications and pays the bills. Prior Functional Level (Other details) Per OT's note: Per pt use of 3L o2 at home and have 50ft of tubing that reaching all areas of the house. Social History Household Members spouse family Living Arrangements House Number of Floors (Floors) One Floor Number of Stairs To Enter/Railing? Use of ramp to enter the house . Home Environment Standard Height Toilet High Toilet Walk in Shower Home Equipment Four Wheel Walker Manual Wheelchair Power Wheelchair/Scooter Grab Bars In Shower Additional Social History Comment pt's spouse will not be able to assist pt much due to her own medical issues. His grandson lives with them but will not be able to help him much due to grandson going to school M2 PT-IP Current Condition Start: 09/21/18 14:40 Freq: NEEDED Status: Active Protocol: Document 09/21/18 14:00 [facility] (Rec: 09/21/18 15:00 [facility] [email or web address]) Physical Therapy Current Condition Current Condition Evaluation Date 09/21/18 Treatment Diagnosis COPD; generalized weakness Onset Date 09/16/18 Precautions Brace has an abdominal brace/binder to support his hernia Other Precautions O2 sat M3 PT-IP Subjective Start: 09/21/18 14:40 Freq: NEEDED Status: Active Protocol: Document 09/21/18 14:00 [facility] (Rec: 09/21/18 15:00 [facility] [email or web address]) Subjective Physical Therapy Visit Type Type Initial Evaluation Visit Start Time 14:00 Visit Stop Time 14:20 Total Visit Minutes 20 Number of PROJECT CONTROL MANAGER Visits 0 Physical Therapy Visit Comments Patient Comments I cannot do much; i am really weak M4 PT-IP Mobility and Gait Start: 09/21/18 14:40 Freq: NEEDED Status: Active Protocol: Document 09/21/18 14:00 [facility] (Rec: 09/21/18 15:00 [facility] [email or web address]) PT-Bed Mobility Assessment Supine to Sit Supine to Sit Standby Assistance Head of Bed Elevated PT-Transfer Assessment Sit to and From Stand Sit to and from Stand Minimal Assistance 1 Person Assistance Use of Upper Extremities Equipment Transfer Assistive Device Gait Belt Front Wheeled Walker Orthotic/Prosthetic Devices or Brace: Yes Comments Mobility Comments pt agreead to do some PT. pt requested to use the urinal. completed bed mobility supine to sit with HOB elevated SBA. pt completed sit to stand min A and cues requiring min A for steadiness with initial standing. pt was able to maintain standing CGA while using the urinal and tolerated ~ 20 sec of standing. pt refused to do ambulation and further PT. stated that he is done for the day. (+) SOB. O2 sat maintained at 94-97% but decreased down to ~ 84-87% after activity sitting on EOB . PT-Balance Assessment Sitting Balance and Reactions Static Sitting Balance Ability Good Dynamic Sitting Balance Ability Good Standing Balance and Reactions Static Standing Balance Ability Fair Dynamic Standing Balance Ability Fair Device Used FWW M5 PT-IP Objective Assessments Start: 09/21/18 14:40 Freq: NEEDED Status: Active Protocol: Document 09/21/18 14:00 [facility] (Rec: 09/21/18 15:00 [facility] [email or web address]) Orientation Orientation/Cognition Level of Alertness Alert Orientation Place Situation Gross Range of Motion Lower Extremity ROM Assessment Within Functional Limits Strength Lower Extremity Strength Assessment Bilaterally Impaired Hip 4-/5 Knee 4-/5 Muscle Tone Muscle Tone WNL Yes M6 PT-IP Treatment Start: 09/21/18 14:40 Freq: NEEDED Status: Active Protocol: Document 09/21/18 14:00 [facility] (Rec: 09/21/18 15:00 [facility] [email or web address]) Physical Therapy Treatment Education Education Provided Safety M7 PT-IP Assessment and Plan Start: 09/21/18 14:40 Freq: NEEDED Status: Active Protocol: Document 09/21/18 14:00 [facility] (Rec: 09/21/18 15:00 [facility] [email or web address]) PT Summary Assessment and Plan Potential Rehabilitation Potential Fair Status of Condition at Evaluation Evolving Summary Impairments Pain ROM Strength Balance Coordination Sensation Tone Cognition Bed Mobility Transfers Gait Activity Tolerance Assessment Summary pt unable to tolerate much activity this afternoon. pt was able to stand for only ~ 20 min but presents with (+) SOB. pt stated that he is too weak to ambulate. pt will require SNF rehab to improve strength and mobility. Goals Bed Mobility Goal Standby Assistance Transfer Goal Standby Assistance Front Wheeled Walker Gait Goal Standby Assistance Front Wheel Walker Gait Distance 50 Other Goals ambulation using 4WW SBA ~ 50 ft Days to Meet Goals 5 Frequency of Treatment Frequency Of Treatment Once a Day Treatment Plan Physical Therapy Treatment Plan Bed Mobility Training Transfer Training Gait Training Therapeutic Exercise Balance Retraining Discharge Planning Hot or Cold Pack Neuromuscular Re-ed Coordination Retraining Manual Therapy Recommendations To Nursing Amount of Assist Needed 1 Person Assist Discharge Recommendations PT Discharge Recommendations SNF Rehab Equipment Needed for Home Before If pt is going home and not Discharge safe with 4WW: pt will need a FWW
[2018-09-21] MEDS: DOCUSATE 100 MG CAPSULE PO (21:01)
[2018-09-22] VITALS (15 sets, daily range): BP systolic 114–137; BP diastolic 61–88; PULSE 60–102; RESP 18–28; TEMP 36.4–36.8; O2SAT 85–100
--- NOTE | 2018-09-22 | DI.RAD.S_ITS ---
PROCEDURE: XR CHEST 2V INDICATIONS: copd TECHNIQUE: 2 views of the chest were acquired. COMPARISON: [facility], CR, XR CHEST 1V, 09/16/2018, 15:04. FINDINGS: Surgical changes and devices: None. Lungs and pleura: The lungs are hyperinflated. There are fibrotic changes in the left suprahilar and infrahilar regions as well as right infrahilar region. Worsening of bilateral peribronchial thickening. Small bilateral pleural effusions Mediastinum: Mediastinal contours are normal. Heart size is normal. Bones and chest wall: No suspicious bony abnormalities. Soft tissues appear unremarkable. IMPRESSION: 1. Interval worsening of bilateral peribronchial thickening superimposed on chronic fibrotic changes. 2. Small bilateral pleural effusions whose appearance has increased slightly compared to the prior study. Dictated by: Yohana Brower M.D. on 09/22/2018 at 10:22 Approved by: Yohana Brower M.D. on 09/22/2018 at 10:25
[2018-09-22] MEDS: MORPHINE 2 MG/ML INJ 1 MG IV ×3 (02:20→13:33)
--- NOTE | 2018-09-22 03:48 | PC.NURSE ---
Addendum entered by Garcia Fournier R.N. 09/22/18 05:38: awake and requesting snack as he feels queasy. BG 141. given 1/2 sandwich and resettled in bed. Original Note: Pt supine eyes closed RR even and unlaboured. Flacc looking relaxed. Continue to monitor.
[2018-09-22] MEDS: SODIUM CHLORIDE 0.9% FLUSH 10 ML IV ×4 (04:20→22:34)
[2018-09-22] MEDS: PANTOPRAZOLE 40 MG TABLET PO (06:30)
[2018-09-22] MEDS: ALBUTEROL/IPRATROPIUM 3 ML AMPUL INH ×4 (06:37→17:42)
[2018-09-22] MEDS: INSULIN ASPART 100 UNIT/ML INSULN PEN SUBCUT ×4 (07:55→22:35)
[2018-09-22] MEDS: ENOXAPARIN 40 MG/0.4 ML SYRINGE SUBCUT (07:59)
[2018-09-22] MEDS: DOCUSATE 100 MG CAPSULE PO ×2 (07:59→22:35)
[2018-09-22] MEDS: FUROSEMIDE 40 MG TABLET PO (08:00)
[2018-09-22] MEDS: TAMSULOSIN 0.4 MG CAPSULE PO (08:00)
[2018-09-22] MEDS: predniSONE 20 MG TABLET 40 MG PO (08:00)
[2018-09-22] MEDS: ITRACONAZOLE 200 MG 200 EACH PO ×2 (08:02→17:06)
[2018-09-22 08:28] LABS: Add Manual Diff / Slide Review YES; Hematocrit 39.7 % (41-53); Hemoglobin 12.5 g/dL (13.5-17.5); Mean Corpuscular HGB Conc 31.4 % (30-36); Mean Corpuscular Hemoglobin 29.1 PG (26-34); Mean Corpuscular Volume 92.7 fL (80-100); Platelet Count 257 X10^3/uL (150-400); Red Blood Cell Count 4.27 X10^6/uL (4.5-5.9); Red Cell Distribution Width 15.1 % (11.6-14.8); White Blood Cell Count 19.3 X10^3/uL (4.5-11.0)
[2018-09-22 09:10] LABS: Macrocytosis 2+; Neutrophils Absolute Manual 17370 /uL (3000-5900); Total Cells Counted 100
[2018-09-22] MEDS: BUDESONIDE 0.5 MG/2 ML NEB INH (09:58)
--- NOTE | 2018-09-22 10:18 | P.PN_ITS ---
Subjective Date Patient Seen: 09/22/18 Time Patient Seen: 10:48 Interval history: He is seen today to follow-up his COPD, chronic hypoxia, aspergillosis, Xenotrophomonas sputum colonization. The white blood count is now up to 19 and the chest x-ray suggests worsening chronic infiltrates. Clinically he is also failed to improve in the last few days. I have reviewed the chest x-ray film myself and agree with the radiologist's reading. Exam Vital Signs (past 8 hours): - 09/22/18 02:32 09/22/18 04:00 09/22/18 06:37 Temperature 97.7 F Pulse Rate 66 75 Respiratory Rate 20 20 Blood Pressure 129/62 Pulse Oximetry 98 96 97 09/22/18 08:00 09/22/18 10:05 Temperature 97.5 F L Pulse Rate 87 102 H Respiratory Rate 18 Blood Pressure 137/70 Pulse Oximetry 97 96 Oxygen Delivery Method Nasal Cannula Oxygen Flow Rate 3 Narrative Exam Narrative: He is alert and oriented x3, in no apparent distress. His dyspnea at rest is unchanged from baseline. Heart is regular rate and rhythm, somewhat distant. Lungs have wheezes bilaterally with tight air flow. Extremities have no ankle edema. He has a large protruding ventral hernia. Objective Labs Result Diagrams: 09/22/18 08:10 09/19/18 05:23 Labs: Laboratory Results - last 24 hr 09/22/18 08:10 WBC 19.3 H RBC 4.27 L Hgb 12.5 L Hct 39.7 L MCV 92.7 MCH 29.1 MCHC 31.4 RDW 15.1 H Plt Count 257 Neut % (Auto) Not Reportable Lymph % (Auto) Not Reportable [place] % (Auto) Not Reportable Eos % (Auto) Not Reportable Baso % (Auto) Not Reportable Lymph # (Auto) Not Reportable [place] # (Auto) Not Reportable Baso # (Auto) Not Reportable Total Counted 100 Seg Neutrophils % 74.0 H Band Neutrophils % 16.0 H Lymphocytes % (Manual) 5.0 L Monocytes % (Manual) 5.0 Neutrophils # (Manual) 81072 H RBC Morphology Not Reportable Macrocytosis 2+ H Assessment & Plan Assessment & Plan narrative: Acute on chronic hypoxic respiratory failure, present on admission - continue prednisone, Spiriva, lorazepam, albuterol, budesonide - We will need to delay discharge pending improvement in the white blood count, chest x-ray appearance and symptoms. Acute COPD exacerbation, present on admission - continue oxygen and consider change to IV steroids. Pneumonia -Aspergillosis - Mold and Stenotrophomonas Sputum growth, present on admission -continue itraconazole -Begin Levaquin for pseudomonal coverage for this apparent colonization turn infection, based on the chest x-ray appearance and the increasing white count. Hypertension Hyperlipidemia Benign prostatic hypertrophy -He had several episodes of acute urinary obstruction with symptomatic bladder distension yesterday and so a Paula catheter was placed which will need to be weaned off soon. The Flomax was resumed yesterday. Plan will continue oxygen nebulizer and steroids. Anticipate discharge to SNF in 2-3 days.
[2018-09-22] MEDS: levoFLOXacin 500 MG/100 ML PIGGYBACK 100 MG IV (10:33)
--- NOTE | 2018-09-22 10:39 | PT.IPTN ---
Current Diagnoses Chronic obstructive pulmonary disease with (acute) exacerbation (09/16/18) Chronic obstructive pulmonary disease, unspecified (09/16/18) Physical Therapy Treatment Note M2 PT-IP Current Condition Start: 09/21/18 14:40 Freq: NEEDED Status: Active Protocol: Document 09/21/18 14:00 AB (Rec: 09/21/18 15:00 AB [email or web address]) Physical Therapy Current Condition Current Condition Evaluation Date 09/21/18 Treatment Diagnosis COPD; generalized weakness Onset Date 09/16/18 Precautions Brace has an abdominal brace/binder to support his hernia Other Precautions O2 sat M3 PT-IP Subjective Start: 09/21/18 14:40 Freq: NEEDED Status: Active Protocol: Document 09/22/18 10:39 AB (Rec: 09/22/18 12:12 AB [id number]) Subjective Physical Therapy Visit Type Type Treatment Note Visit Start Time 10:39 Visit Stop Time 10:50 Total Visit Minutes 11 Number of FIELD SERVICE ANALYST Visits 0 M4 PT-IP Mobility and Gait Start: 09/21/18 14:40 Freq: NEEDED Status: Active Protocol: Document 09/22/18 10:39 AB (Rec: 09/22/18 12:12 AB [id number]) PT-Transfer Assessment Sit to and From Stand Sit to and from Stand Minimal Assistance 1 Person Assistance Use of Upper Extremities Equipment Transfer Assistive Device Gait Belt Front Wheeled Walker Orthotic/Prosthetic Devices or Brace: No Comments Mobility Comments pt required 2 attempts for sit <>stand. unable to complete first attempt but only required min A on 2nd attempt. Gait Assessment Gait Gait Assistance Required: Minimum Assistance Distance (Feet) 5 Able to Maintain Weight Bearing Status Yes During Gait Assistive Devices Assistive Device Gait Belt Front Wheeled Walker Orthotic/Prosthetic Devices or Brace: No Gait Deviations General Gait Pattern Decreased Stride Length Decreased Feet Clearance Factors Limiting Gait Function Factors Limiting Gait Function Decreased Activity Tolerance Decreased Strength Poor Balance Respiratory Distress Comments Gait Comments pt initially refusing but eventually agreed to ambulate. completed ambulation using FWW ~ 5 ft min A and cues. M5 PT-IP Objective Assessments Start: 09/21/18 14:40 Freq: NEEDED Status: Active Protocol: Document 09/21/18 14:00 AB (Rec: 09/21/18 15:00 AB [email or web address]) Orientation Orientation/Cognition Level of Alertness Alert Orientation Place Situation Gross Range of Motion Lower Extremity ROM Assessment Within Functional Limits Strength Lower Extremity Strength Assessment Bilaterally Impaired Hip 4-/5 Knee 4-/5 Muscle Tone Muscle Tone WNL Yes M6 PT-IP Treatment Start: 09/21/18 14:40 Freq: NEEDED Status: Active Protocol: Document 09/21/18 14:00 AB (Rec: 09/21/18 15:00 AB [email or web address]) Physical Therapy Treatment Education Education Provided Safety M7 PT-IP Assessment and Plan Start: 09/21/18 14:40 Freq: NEEDED Status: Active Protocol: Document 09/22/18 10:39 AB (Rec: 09/22/18 12:12 AB [id number]) PT Summary Assessment and Plan Potential Rehabilitation Potential Fair Summary Impairments Pain ROM Strength Balance Coordination Sensation Tone Cognition Bed Mobility Transfers Gait Activity Tolerance Progress Towards Goals Slow Progress due to Medical Issues Slow Progress due to Activity Tolerance Assessment Summary pt progressing slowly but continues to have decrease activity tolerance and unable to tolerate much activity. pt will require SNF rehab to improve strength and mobility. Goals Bed Mobility Goal Standby Assistance Transfer Goal Standby Assistance Front Wheeled Walker Gait Goal Standby Assistance Front Wheel Walker Gait Distance 50 Other Goals ambulation using 4WW SBA ~ 50 ft Days to Meet Goals 5 Frequency of Treatment Frequency Of Treatment Once a Day Treatment Plan Physical Therapy Treatment Plan Bed Mobility Training Transfer Training Gait Training Therapeutic Exercise Balance Retraining Discharge Planning Hot or Cold Pack Neuromuscular Re-ed Coordination Retraining Manual Therapy Other Recommendations and Next Treatment ambulation Focus Recommendations To Nursing Amount of Assist Needed 1 Person Assist Discharge Recommendations PT Discharge Recommendations SNF Rehab Equipment Needed for Home Before If pt is going home and not Discharge safe with 4WW: pt will need a FWW
--- NOTE | 2018-09-22 11:16 | OT.IP.TRT ---
Current Diagnoses Chronic obstructive pulmonary disease with (acute) exacerbation (09/16/18) Chronic obstructive pulmonary disease, unspecified (09/16/18) Occupational Therapy Treatment Note M2 OT-IP Current Condition Start: 09/21/18 12:49 Freq: Status: Active Protocol: Document 09/21/18 12:49 [facility] (Rec: 09/21/18 13:37 [facility] [email or web address]) Occupational Therapy Current Condition Current Condition Evaluation Date 09/21/18 Treatment Diagnosis Acute COPD, weakness Diagnosis Onset Date 09/16/18 M3 OT- IP Subjective and Pain Start: 09/21/18 12:49 Freq: Status: Active Protocol: Document 09/22/18 11:04 [facility] (Rec: 09/22/18 11:16 [facility] [email or web address]) OT- Subjective Occupational Therapy Visit Type Type Treatment Note Visit Start Time 10:45 Visit Stop Time 11:00 Total Visit Minutes 15 Occupational Therapy Visit Comments Patient Comments Pt initially not wanting to get up as just got in the recliner earlier however Pt able to encourage pt to try a take a few step with FWW. OT Pain Assessment Pain When Pain Assessed At Rest Pain Present Pain Present Denied Pain Freq: Status: Active Protocol: Document 09/21/18 12:49 [facility] (Rec: 09/21/18 13:37 [facility] [email or web address]) OT-Instrumental Activities of Daily Living Medication Management Medication Management Comments Pt states does his own medications M6 OT- IP Functional Cognition Start: 09/21/18 12:49 Freq: Status: Active Protocol: Document 09/22/18 11:04 [facility] (Rec: 09/22/18 11:16 [facility] [email or web address]) Cognitive Factors Limiting Selfcare Function Cognitive Ability Level of Alertness Alert Patient Orientation Name Place Situation Attention Span Ability Capable of Focused Attention Capable of Sustained Attention Ability to Follow Commands Able to Follow Multi-Step Commands Memory Description No Deficits Noted Cognitive Comments Cognitive Assessment Comments No deficits noted. M7 OT- IP Mobility and Balance Start: 09/21/18 12:49 Freq: Status: Active Protocol: Document 09/22/18 11:04 [facility] (Rec: 09/22/18 11:16 [facility] [email or web address]) OT-Transfer Assessment Sit to and From Stand Sit to and from Stand Minimal Assistance 1 Person Assistance Comments Mobility Comments PT able to stand with pt , OT stand by for safety due to decreased activity tolerance and fatigue. Pt able to walk a few steps towards the counter from recliner with PT's assist and then needing to sit . O2 on 3L dropped to 87% but able to recover quickly after sitting down to 95%. Able to go through energy conservation and deep breathing information sheet with pt. Pt states biggest problem at home is insists on pt to walk to the bathroom to urinate and does not want him to use urinal in the front room. Pt states feel gets too tired to walk to the bathroom even though he has his oxygen on. Pt states mainly just microwaves his food to eat and seldom cooks, otherwise sits on 4WW during the task. OT- Balance Assessment Sitting Balance and Reactions Static Sitting Balance Ability Normal Dynamic Sitting Balance Ability Good Standing Balance and Reactions Static Standing Balance Ability Fair M8 OT- IP Objective Assessments Start: 09/21/18 12:49 Freq: Status: Active Protocol: Document 09/21/18 12:49 [facility] (Rec: 09/21/18 13:37 [facility] [email or web address]) OT Gross Range of Motion Upper Extremity Range of Motion Assessment Within Functional Limits OT Strength Comments Strength Comments BUE strength 4/5 M9 OT- IP Assessment and Plan Start: 09/21/18 12:49 Freq: Status: Active Protocol: Document 09/22/18 11:04 [facility] (Rec: 09/22/18 11:16 [facility] [email or web address]) OT Summary Assessment and Plan Potential Rehabilitation Potential Good Analytic Complexity at Evaluation Low Summary OT Impairments Strength Balance Functional Mobility Grooming Dressing Toileting Bathing Toilet Transfers Shower Transfers Progress Towards Goals Slow Progress due to Medical Issues Slow Progress due to Activity Tolerance Assessment Summary Pt improvement today and able to take a few steps with FWW however still very limited and would benefit from skilled rehab prior to going home. Goals Grooming Goal Standby Assistance Dressing Goal Standby Assistance Toileting Goal Standby Assistance Bathing Goal Minimal Assistance Toilet Transfer Goal Standby Assistance Shower Transfer Goal Contact Guard Assistance Patient/Caregiver Education Goal Demonstrate Energy Conservation and Pacing Days to Meet Goals 7 Frequency of Treatment Frequency Of Treatment Once a Day Treatment Plan OT Treatment Plan ADL Training Functional Mobility Patient/Family Education Discharge Planning Discharge Recommendations OT Discharge Recommendations SNF Rehab Home Equipment Needs Shower chair, possible FWW
[2018-09-22] MEDS: LORazepam 2 MG/ML SYRINGE 0.5 MG IV (13:34)
[2018-09-23] VITALS (16 sets, daily range): BP systolic 118–130; BP diastolic 43–90; PULSE 65–100; RESP 16–22; TEMP 36.3–36.6; O2SAT 94–100
[2018-09-23] MEDS: MORPHINE 2 MG/ML INJ 1 MG IV ×5 (00:07→20:43)
[2018-09-23] MEDS: SODIUM CHLORIDE 0.9% FLUSH 10 ML IV ×4 (00:08→20:43)
[2018-09-23 05:42] LABS: Hematocrit 36.4 % (41-53); Hemoglobin 11.7 g/dL (13.5-17.5); Mean Corpuscular HGB Conc 32.2 % (30-36); Mean Corpuscular Hemoglobin 29.2 PG (26-34); Mean Corpuscular Volume 90.5 fL (80-100); Platelet Count 236 X10^3/uL (150-400); Red Blood Cell Count 4.03 X10^6/uL (4.5-5.9); Red Cell Distribution Width 14.8 % (11.6-14.8); White Blood Cell Count 12.1 X10^3/uL (4.5-11.0)
[2018-09-23 05:44] LABS: Add Manual Diff / Slide Review YES
[2018-09-23 05:47] LABS: BUN Creatinine Ratio 43.3 (6-22); Blood Urea Nitrogen 26 mg/dL (9-20); Calcium 9.9 mg/dL (8.4-10.2); Chloride 94 mmol/L (98-107); Estimated Glomerular Filt Rate > 60.0 mL/min (>60); Glucose 173 mg/dL (80-110); HEMOLYSIS < 15 (0-50); Sodium 140 mmol/L (137-145)
[2018-09-23] MEDS: LORazepam 2 MG/ML SYRINGE 0.5 MG IV ×3 (05:57→20:43)
[2018-09-23 05:58] LABS: Carbon Dioxide 42 mmol/L (22-32)
[2018-09-23] MEDS: PANTOPRAZOLE 40 MG TABLET PO (05:58)
[2018-09-23] MEDS: ALBUTEROL/IPRATROPIUM 3 ML AMPUL INH ×4 (06:03→17:43)
[2018-09-23 07:01] LABS: RBC Morphology Normal Morphology
[2018-09-23] MEDS: BUDESONIDE 0.5 MG/2 ML NEB INH ×2 (08:32→17:43)
--- NOTE | 2018-09-23 08:45 | PM.PN.1 ---
Subjective Date Patient Seen: 09/23/18 Time Patient Seen: 08:45 Interval history: He is seen today to follow-up his COPD exacerbation, chronic hypoxemia, hypoxic respiratory failure and stenotrophomonas along with Aspergillus in sputum culture. Yesterday his white count abdullahi to 19 and his chest x-ray looked worse and so he was started on Levaquin. Today he is feeling much better. The white blood count is now down to 12.1. The BMP is normal. The CO2 is 42. Exam Vital Signs (past 8 hours): - 09/23/18 04:00 09/23/18 06:04 09/23/18 07:20 Temperature 97.6 F 97.9 F Pulse Rate 67 68 72 Respiratory Rate 20 20 17 Blood Pressure 128/67 130/64 Pulse Oximetry 99 99 99 09/23/18 08:30 Temperature Pulse Rate 88 Respiratory Rate 18 Blood Pressure Pulse Oximetry 97 Oxygen Delivery Method Nasal Cannula Oxygen Flow Rate 3 Narrative Exam Narrative: Alert and oriented x3, in no apparent distress. He looks and feels a lot better with just 1 dose of Levaquin since yesterday. His breathing is better. Heart is regular rate and rhythm without murmur. Lungs are notable for wheezing bilaterally. Extremities have no ankle edema. Objective Labs Result Diagrams: 09/23/18 05:00 09/23/18 05:00 Labs: Laboratory Results - last 24 hr 09/22/18 09/23/18 09/23/18 08:10 05:00 05:00 WBC 12.1 H RBC 4.03 L Hgb 11.7 L Hct 36.4 L MCV 90.5 MCH 29.2 MCHC 32.2 RDW 14.8 Plt Count 236 Neut % (Auto) Not Reportable Lymph % (Auto) Not Reportable [place] % (Auto) Not Reportable Eos % (Auto) Not Reportable Baso % (Auto) Not Reportable Lymph # (Auto) Not Reportable [place] # (Auto) Not Reportable Baso # (Auto) Not Reportable Total Counted 100 Seg Neutrophils % 74.0 H 86.0 H Band Neutrophils % 16.0 H 2.0 L Lymphocytes % (Manual) 5.0 L 4.0 L Monocytes % (Manual) 5.0 7.0 Myelocytes % 1.0 H Neutrophils # (Manual) 93903 H RBC Morphology Not Reportable Normal morphology Macrocytosis 2+ H Sodium 140 Potassium 5.0 Chloride 94 L Carbon Dioxide 42 H* BUN 26 H Creatinine 0.60 L Estimated GFR > 60.0 BUN/Creatinine Ratio 43.3 H Glucose 173 H Calcium 9.9 Assessment & Plan Assessment & Plan narrative: Acute on chronic hypoxic respiratory failure, present on admission - continue prednisone, Spiriva, lorazepam, albuterol, budesonide - I am happy to see the rapid improvement since yesterday and anticipate he will be going to [facility] for rehab tomorrow Acute COPD exacerbation, present on admission - continue oxygen and today he is doing well on oral steroids. Pneumonia -Aspergillosis - Mold and Stenotrophomonas Sputum growth, present on admission -continue itraconazole -continue Levaquin for pseudomonal coverage for this apparent colonization turn infection, based on the chest x-ray appearance and the increasing white count from yesterday, now improving. -plan 1 full week of IV Levaquin therapy and so a midline will be placed today or tomorrow Hypertension Hyperlipidemia Benign prostatic hypertrophy -He had several episodes of acute urinary obstruction with symptomatic bladder distension yesterday and so a Paula catheter was placed which will need to be removed at discharge tomorrow. The Flomax was resumed 2 days ago Plan will continue oxygen nebulizer and steroids. Anticipate discharge to SNF in 1 day.
[2018-09-23] MEDS: DOCUSATE 100 MG CAPSULE PO ×2 (09:03→20:36)
[2018-09-23] MEDS: FUROSEMIDE 40 MG TABLET PO (09:03)
[2018-09-23] MEDS: predniSONE 20 MG TABLET 40 MG PO (09:03)
[2018-09-23] MEDS: ENOXAPARIN 40 MG/0.4 ML SYRINGE SUBCUT (09:03)
[2018-09-23] MEDS: ITRACONAZOLE 200 MG 200 EACH PO ×2 (09:04→16:58)
[2018-09-23] MEDS: TAMSULOSIN 0.4 MG CAPSULE PO (09:04)
[2018-09-23] MEDS: INSULIN ASPART 100 UNIT/ML INSULN PEN SUBCUT ×4 (09:14→20:37)
[2018-09-23] MEDS: levoFLOXacin 500 MG/100 ML PIGGYBACK 100 MG IV (10:34)
--- NOTE | 2018-09-23 15:11 | PC.NURSE ---
Pt alert and oriented. Advised plan is to dc to [facility] tomorrow after midline placed for IV levaquin therapy for one week. Pt requesting IV MS for breathing and ativan to relax. Last given prior to working with PT.
--- NOTE | 2018-09-23 15:36 | PT.IPTN ---
Current Diagnoses Chronic obstructive pulmonary disease with (acute) exacerbation (09/16/18) Chronic obstructive pulmonary disease, unspecified (09/16/18) Physical Therapy Treatment Note M2 PT-IP Current Condition Start: 09/21/18 14:40 Freq: NEEDED Status: Active Protocol: Document 09/21/18 14:00 AB (Rec: 09/21/18 15:00 AB [email or web address]) Physical Therapy Current Condition Current Condition Evaluation Date 09/21/18 Treatment Diagnosis COPD; generalized weakness Onset Date 09/16/18 Precautions Brace has an abdominal brace/binder to support his hernia Other Precautions O2 sat M3 PT-IP Subjective Start: 09/21/18 14:40 Freq: NEEDED Status: Active Protocol: Document 09/23/18 14:55 [facility] (Rec: 09/23/18 15:36 [facility] [id number]) Subjective Physical Therapy Visit Type Type Treatment Note Visit Start Time 14:55 Visit Stop Time 15:15 Total Visit Minutes 20 Number of PERSONAL CARE ATTENDANT Visits 1 Physical Therapy Visit Comments Patient Comments Pt agreeable to sit in chair. M4 PT-IP Mobility and Gait Start: 09/21/18 14:40 Freq: NEEDED Status: Active Protocol: Document 09/23/18 14:55 [facility] (Rec: 09/23/18 15:36 [facility] [id number]) PT-Bed Mobility Assessment Supine to Sit Supine to Sit Standby Assistance Head of Bed Elevated PT-Transfer Assessment Sit to and From Stand Sit to and from Stand Minimal Assistance 1 Person Assistance Use of Upper Extremities Equipment Transfer Assistive Device Gait Belt Front Wheeled Walker Orthotic/Prosthetic Devices or Brace: No Transfers Transfer Destination Chair Transfer Ability Level of Assist Minimal Assistance Comments Mobility Comments Pt required SBA to EOB then Min A sit-stand from bed. After ambulation pt was unable to stand from chair stating he felt too weak. Gait Assessment Gait Gait Assistance Required: Minimum Assistance Distance (Feet) 10 Able to Maintain Weight Bearing Status Yes During Gait Assistive Devices Assistive Device Gait Belt Front Wheeled Walker Orthotic/Prosthetic Devices or Brace: No Gait Deviations General Gait Pattern Decreased Stride Length Decreased Feet Clearance Factors Limiting Gait Function Factors Limiting Gait Function Decreased Activity Tolerance Decreased Strength Poor Balance Respiratory Distress Comments Gait Comments Pt agreed to ambulate around bed to window seat but was feeling weak and required sitting in chair. M5 PT-IP Objective Assessments Start: 09/21/18 14:40 Freq: NEEDED Status: Active Protocol: Document 09/21/18 14:00 AB (Rec: 09/21/18 15:00 AB [email or web address]) Orientation Orientation/Cognition Level of Alertness Alert Orientation Place Situation Gross Range of Motion Lower Extremity ROM Assessment Within Functional Limits Strength Lower Extremity Strength Assessment Bilaterally Impaired Hip 4-/5 Knee 4-/5 Muscle Tone Muscle Tone WNL Yes M6 PT-IP Treatment Start: 09/21/18 14:40 Freq: NEEDED Status: Active Protocol: Document 09/21/18 14:00 AB (Rec: 09/21/18 15:00 AB [email or web address]) Physical Therapy Treatment Education Education Provided Safety M7 PT-IP Assessment and Plan Start: 09/21/18 14:40 Freq: NEEDED Status: Active Protocol: Document 09/23/18 14:55 [facility] (Rec: 09/23/18 15:36 [facility] [id number]) PT Summary Assessment and Plan Summary Impairments Pain ROM Strength Balance Coordination Sensation Tone Cognition Bed Mobility Transfers Gait Activity Tolerance Progress Towards Goals Slow Progress due to Medical Issues Slow Progress due to Activity Tolerance Assessment Summary Pt increased ambulation to ~ 10ft but felt weak and SOB after ~10ft. Pt O2 remained above 94% during activity. Goals Bed Mobility Goal Standby Assistance Transfer Goal Standby Assistance Front Wheeled Walker Gait Goal Standby Assistance Front Wheel Walker Gait Distance 50 Other Goals ambulation using 4WW SBA ~ 50 ft Days to Meet Goals 5 Frequency of Treatment Frequency Of Treatment Once a Day Treatment Plan Physical Therapy Treatment Plan Bed Mobility Training Transfer Training Gait Training Therapeutic Exercise Balance Retraining Discharge Planning Hot or Cold Pack Neuromuscular Re-ed Coordination Retraining Manual Therapy Recommendations To Nursing Amount of Assist Needed 1 Person Assist Discharge Recommendations PT Discharge Recommendations SNF Rehab Equipment Needed for Home Before If pt is going home and not Discharge safe with 4WW: pt will need a FWW
[2018-09-24] VITALS (17 sets, daily range): BP systolic 122–138; BP diastolic 65–89; PULSE 61–90; RESP 16–28; TEMP 36.3–36.8; O2SAT 96–100
[2018-09-24] MEDS: ATORVASTATIN 20 MG TABLET PO ×2 (01:25→20:52)
--- NOTE | 2018-09-24 02:45 | PC.NURSE ---
Chemical Dependency Attendant Note: 0100: Resting in bed. Vital signs stable. IV in place in rt forearm. Pt remains on O2 3L/NC. Paula catheter is patent, with clear orange colored urine. Pt denies pain or discomfort at this time.
[2018-09-24] MEDS: ALBUTEROL/IPRATROPIUM 3 ML AMPUL INH ×4 (05:15→17:32)
[2018-09-24] MEDS: BUDESONIDE 0.5 MG/2 ML NEB INH ×2 (05:15→17:32)
[2018-09-24] MEDS: PANTOPRAZOLE 40 MG TABLET PO (05:21)
[2018-09-24] MEDS: MORPHINE 2 MG/ML INJ 1 MG IV ×2 (05:22→10:17)
[2018-09-24 05:48] LABS: Hematocrit 38.5 % (41-53); Hemoglobin 12.2 g/dL (13.5-17.5); Mean Corpuscular HGB Conc 31.6 % (30-36); Mean Corpuscular Hemoglobin 28.9 PG (26-34); Mean Corpuscular Volume 91.4 fL (80-100); Platelet Count 263 X10^3/uL (150-400); Red Blood Cell Count 4.21 X10^6/uL (4.5-5.9); White Blood Cell Count 11.4 X10^3/uL (4.5-11.0)
[2018-09-24 05:49] LABS: Blood Urea Nitrogen 23 mg/dL (9-20); Calcium 10.2 mg/dL (8.4-10.2); Chloride 91 mmol/L (98-107); Estimated Glomerular Filt Rate > 60.0 mL/min (>60); Glucose 175 mg/dL (80-110); HEMOLYSIS < 15 (0-50); Sodium 140 mmol/L (137-145)
[2018-09-24 06:00] LABS: Potassium 5.5 mmol/L (3.4-5.1)
[2018-09-24 06:02] LABS: Carbon Dioxide 44 mmol/L (22-32)
[2018-09-24 06:23] LABS: Add Manual Diff / Slide Review YES
--- NOTE | 2018-09-24 06:54 | P.PN_ITS ---
Subjective Date Patient Seen: 09/24/18 Interval history: Chacorta Yanes is a 68-year-old male with past medical history significant for CAD status post coronary catheterization, hyperlipidemia, chronic hypoxemic and hypercapneic respiratory failure due to COPD on 3L continuous oxygen who presented with progressive shortness of breath and admitted for acute COPD exacerbation. The patient is resting in bed. He appears chronically ill. He continues to endorse chronic shortness of breath and cough. He is on his baseline oxygen requirements of 3 L. Discussed trilogy in depth and indications for use (carbon dioxide retention leading to possible coma/) for which he is willing to try again. He states that he is only willing to wear the mask for short time intervals. He denies headache, chest pain, abdominal pain, nausea, vomiting, fever, chills, diarrhea or constipation. He is voiding and eliminating without difficulty. He is up ambulating minimally with assistance due to respiratory fatigue. Exam Vital Signs (past 8 hours): - 09/24/18 00:00 09/24/18 01:00 09/24/18 04:20 Temperature 97.7 F 97.8 F Pulse Rate 62 65 Respiratory Rate 18 19 Blood Pressure 130/65 137/68 Pulse Oximetry 99 99 99 09/24/18 05:16 09/24/18 05:17 Temperature Pulse Rate Respiratory Rate Blood Pressure Pulse Oximetry 99 99 Oxygen Delivery Method Nasal Cannula Oxygen Flow Rate 3 Narrative Exam Narrative: General: No acute distress, well-developed, well-nourished, appropriately in teractive HEENT: Normocephalic, atraumatic. External ears without defect. Pupils equal, round, and reactive to light and accommodation. Anicteric sclerae, moist conjunctivae, and no lid lag. Neck: Supple with full range of motion. No jugular venous distension. No bruits. No lymphadenopathy or thyromegaly. Cardiovascular: Regular rate and rhythm without murmurs, rubs, or gallops appreciated. Pulmonary: Diminished lung sounds throughout with scattered wheeze. No rales or crackles. Mild use of accessory muscles. Abdomen: Soft, bowel sounds present, nontender, nondistended. No hepatosplen omegaly or masses appreciated. Extremities: No clubbing, cyanosis, or edema. Skin: Normal temperature, turgor, and texture; no rash, ulcers, or subcutaneous nodules appreciated. Neurological: Cranial nerves grossly intact. Psychiatric: Normal mood and affect. Alert and oriented to person, place, and time. Objective Labs Result Diagrams: 09/24/18 05:07 09/24/18 05:07 Labs: Laboratory Results - last 24 hr 09/23/18 09/24/18 09/24/18 05:00 05:07 05:07 WBC 11.4 H RBC 4.21 L Hgb 12.2 L Hct 38.5 L MCV 91.4 MCH 28.9 MCHC 31.6 RDW 15.0 H Plt Count 263 Neut % (Auto) Not Reportable Lymph % (Auto) Not Reportable Rapides % (Auto) Not Reportable Eos % (Auto) Not Reportable Baso % (Auto) Not Reportable Lymph # (Auto) Not Reportable [place]ides # (Auto) Not Reportable Baso # (Auto) Not Reportable Seg Neutrophils % 86.0 H Band Neutrophils % 2.0 L Lymphocytes % (Manual) 4.0 L Monocytes % (Manual) 7.0 Myelocytes % 1.0 H RBC Morphology Normal morphology Sodium 140 Potassium 5.5 H Chloride 91 L Carbon Dioxide 44 H* BUN 23 H Creatinine 0.50 L Estimated GFR > 60.0 BUN/Creatinine Ratio 46.0 H Glucose 175 H Calcium 10.2 Assessment & Plan Assessment & Plan narrative: Chacorta Yanes is a 68-year-old male with past medical history significant for CAD status post coronary catheterization, hyperlipidemia, chronic hypoxemic and hypercapneic respiratory failure due to COPD on 3L continuous oxygen who presented with progressive shortness of breath and admitted for acute COPD exacerbation. 1. Acute on chronic hypoxemic and hypercapneic respiratory failure, present on admission. Acute portion resolved. -Secondary to his COPD exacerbation and treating as below. -Continue supplemental oxygen with oxygen saturation goal 88% or greater. The patient is on 3L continuously at baseline. -Consider Diamox for his diuretic as opposed to Lasix to help with his CO2 retention. -ABG demonstrates significant and worsening hypercapnia with compensation but would benefit from Trilogy. Patient is willing to try trilogy again and will plan to contact [facility]. 2. Acute COPD exacerbation, present on admission. Active. -Continue supplemental oxygen with oxygen saturation goal of 88% or greater. Baseline oxygen requirements 3 L daily. -Continue DuoNeb every 4 hours while awake and every 2 hours as needed, budesonide 500 mcg neb twice daily and mucinex 600 mg p.o. twice daily. -Discussed the patient with his clipper counters Dr. Moore, who recommends continuing itraconazole and levofloxacin. She recommends short steroid taper due to significant lung diseas, bronchiectasis, and MAC. 3. Acute tracheobronchitis, present on admission. Active. 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 Legionella urine antigen negative. -Continue itraconazole and Levaquin 750 mg daily for pseudomonal coverage for this apparent infection and tracheobronchitis, based on the chest x-ray and increasing WBC. -Discussed with ID, Dr. Milligan, who recommends continuing antibiotics as above and sending stenotrophomonas for sensitivity to minocycline as it will eventually become resistant to Levaquin and mold for identification and sensitivities. 4. CAD and hyperlipidemia, chronic, present on admission. Stable. -Continue home aspirin 81 mg daily and atorvastatin 20 mg daily at bedtime. 5. BPH, chronic, present on admission. Stable. -He had several episodes of acute urinary obstruction with symptomatic bladder distension and so a Paula catheter has been placed and will need to be removed prior to discharge. -Continue tamsulosin 0.4 mg daily (held for 5 days). 6. Diabetes mellitus type II, non-insulin using, present on admission. Stable. -Hemoglobin A1C 7.0% 09/2018. -Continue low dose correctional scale insulin and ACHS blood glucose checks. -Held metformin 1000 mg twice daily. Will restart at time of discharge. -Continue carbohydrate consistent diet. Disposition: Likely to discharge in 1-2 days to [facility] depending upon improvement in acute on chronic hypoxemic and hypercapnic respiratory failure with trial of trilogy and tracheobronchitis.
[2018-09-24 07:00] LABS: Procalcitonin < 0.05 ng/mL (<0.5)
[2018-09-24 07:12] LABS: Neutrophils Absolute Manual 9348 /uL (3000-5900); Total Cells Counted 100
[2018-09-24 07:16] LABS: RBC Morphology Normal Morphology
[2018-09-24] MEDS: INSULIN ASPART 100 UNIT/ML INSULN PEN SUBCUT ×4 (08:03→20:50)
[2018-09-24] MEDS: ITRACONAZOLE 200 MG 200 EACH PO ×2 (08:04→18:16)
[2018-09-24] MEDS: predniSONE 20 MG TABLET 40 MG PO (08:04)
[2018-09-24] MEDS: TAMSULOSIN 0.4 MG CAPSULE PO (08:04)
[2018-09-24] MEDS: FUROSEMIDE 40 MG TABLET PO (08:04)
[2018-09-24] MEDS: DOCUSATE 100 MG CAPSULE PO ×2 (08:05→20:51)
[2018-09-24] MEDS: ENOXAPARIN 40 MG/0.4 ML SYRINGE SUBCUT (08:05)
[2018-09-24] MEDS: SODIUM CHLORIDE 0.9% FLUSH 10 ML IV ×2 (08:06→20:52)
--- NOTE | 2018-09-24 11:31 | PT.IPTN ---
Current Diagnoses Chronic obstructive pulmonary disease with (acute) exacerbation (09/16/18) Chronic obstructive pulmonary disease, unspecified (09/16/18) Physical Therapy Treatment Note M2 PT-IP Current Condition Start: 09/21/18 14:40 Freq: NEEDED Status: Active Protocol: Document 09/21/18 14:00 AB (Rec: 09/21/18 15:00 AB [email or web address]) Physical Therapy Current Condition Current Condition Evaluation Date 09/21/18 Treatment Diagnosis COPD; generalized weakness Onset Date 09/16/18 Precautions Brace has an abdominal brace/binder to support his hernia Other Precautions O2 sat M3 PT-IP Subjective Start: 09/21/18 14:40 Freq: NEEDED Status: Active Protocol: Document 09/24/18 10:40 HH (Rec: 09/24/18 11:31 HH [email or web address]) Subjective Physical Therapy Visit Type Type Treatment Note Visit Start Time 10:40 Visit Stop Time 11:05 Total Visit Minutes 25 Number of ASSEMBLER TRACTOR Visits 0 Physical Therapy Visit Comments Patient Comments Pt agreeable to mobilize with PT M4 PT-IP Mobility and Gait Start: 09/21/18 14:40 Freq: NEEDED Status: Active Protocol: Document 09/24/18 10:40 HH (Rec: 09/24/18 11:31 HH [email or web address]) PT-Bed Mobility Assessment Supine to Sit Supine to Sit Standby Assistance Head of Bed Elevated Scooting Scooting to Edge of Bed Standby Assistance PT-Transfer Assessment Sit to and From Stand Sit to and from Stand Standby Assistance 1 Person Assistance Use of Upper Extremities Equipment Transfer Assistive Device Gait Belt Front Wheeled Walker Orthotic/Prosthetic Devices or Brace: No Transfers Transfer Destination Bed Chair Transfer Ability Level of Assist Minimal Assistance Comments Mobility Comments Pt requried CGA overall for transfer mobility but he needed cues to keep his FWW close to him while getting to sit on chair. Pt tends to leave his FWW on the side. Pt also able to stand for a min along with deep breathing exercise with CGA. Gait Assessment Gait Gait Assistance Required: Minimum Assistance Distance (Feet) 15 Able to Maintain Weight Bearing Status Yes During Gait Assistive Devices Assistive Device Gait Belt Front Wheeled Walker Orthotic/Prosthetic Devices or Brace: No Gait Deviations General Gait Pattern Decreased Stride Length Decreased Feet Clearance Factors Limiting Gait Function Factors Limiting Gait Function Decreased Activity Tolerance Decreased Strength Poor Balance Respiratory Distress Comments Gait Comments Pt amb from EOB on L side and amb to window and back to bedside chair. Pt had an episode of L knee buckling at midway and almost lost his balance. Pt then states I might have to sit very soon because my knee feels very weak. M5 PT-IP Objective Assessments Start: 09/21/18 14:40 Freq: NEEDED Status: Active Protocol: Document 09/21/18 14:00 AB (Rec: 09/21/18 15:00 AB [email or web address]) Orientation Orientation/Cognition Level of Alertness Alert Orientation Place Situation Gross Range of Motion Lower Extremity ROM Assessment Within Functional Limits Strength Lower Extremity Strength Assessment Bilaterally Impaired Hip 4-/5 Knee 4-/5 Muscle Tone Muscle Tone WNL Yes M6 PT-IP Treatment Start: 09/21/18 14:40 Freq: NEEDED Status: Active Protocol: Document 09/21/18 14:00 AB (Rec: 09/21/18 15:00 AB [email or web address]) Physical Therapy Treatment Education Education Provided Safety M7 PT-IP Assessment and Plan Start: 09/21/18 14:40 Freq: NEEDED Status: Active Protocol: Document 09/24/18 10:40 HH (Rec: 09/24/18 11:31 HH [email or web address]) PT Summary Assessment and Plan Summary Impairments Pain ROM Strength Balance Coordination Sensation Tone Cognition Bed Mobility Transfers Gait Activity Tolerance Progress Towards Goals Slow Progress due to Medical Issues Slow Progress due to Activity Tolerance Assessment Summary Pt showed increased amb to 15 ft but had an episode of L knee buckling that he almost lost his balance. Pt was able to maintain SpO2 >94% and HR 90-105 during mobility. Pt able to stand >1 min today with FWW but he tends to increase WB through both B UEs instead of LEs. Cont recommend to use FWW and d/c to SNF to improve functional mobility. Goals Bed Mobility Goal Standby Assistance Transfer Goal Standby Assistance Front Wheeled Walker Gait Goal Standby Assistance Front Wheel Walker Gait Distance 50 Other Goals ambulation using 4WW SBA ~ 50 ft Days to Meet Goals 5 Frequency of Treatment Frequency Of Treatment Once a Day Treatment Plan Physical Therapy Treatment Plan Bed Mobility Training Transfer Training Gait Training Therapeutic Exercise Balance Retraining Discharge Planning Hot or Cold Pack Neuromuscular Re-ed Coordination Retraining Manual Therapy Other Recommendations and Next Treatment ambulation Focus Recommendations To Nursing Amount of Assist Needed 1 Person Assist Discharge Recommendations PT Discharge Recommendations SNF Rehab Equipment Needed for Home Before If pt is going home and not Discharge safe with 4WW: pt will need a FWW
[2018-09-24] MEDS: levoFLOXacin 250 MG TABLET 750 MG PO (12:08)
[2018-09-24] MEDS: ASPIRIN EC 81 MG TABLET PO (12:08)
--- NOTE | 2018-09-24 13:11 | OT.IP.TRT ---
Current Diagnoses Chronic obstructive pulmonary disease with (acute) exacerbation (09/16/18) Chronic obstructive pulmonary disease, unspecified (09/16/18) Occupational Therapy Treatment Note M2 OT-IP Current Condition Start: 09/21/18 12:49 Freq: Status: Active Protocol: Document 09/21/18 12:49 [facility] (Rec: 09/21/18 13:37 [facility] [email or web address]) Occupational Therapy Current Condition Current Condition Evaluation Date 09/21/18 Treatment Diagnosis Acute COPD, weakness Diagnosis Onset Date 09/16/18 M3 OT- IP Subjective and Pain Start: 09/21/18 12:49 Freq: Status: Active Protocol: Document 09/24/18 12:57 [facility] (Rec: 09/24/18 13:11 [facility] [email or web address]) OT- Subjective Occupational Therapy Visit Type Type Treatment Note Visit Start Time 12:35 Visit Stop Time 12:50 Total Visit Minutes 15 Occupational Therapy Visit Comments Patient Comments Pt's present in the room. Pt agreeable after encouragement to get up and do grooming needs. OT Pain Assessment Pain When Pain Assessed At Rest Pain Present Pain Present Denied Pain M4 OT- IP ADL's Start: 09/21/18 12:49 Freq: Status: Active Protocol: Document 09/24/18 12:57 [facility] (Rec: 09/24/18 13:11 [facility] [email or web address]) OT ADL-Grooming General Evaluation Grooming Ability Standby Assistance Comments OT Grooming Comments SBA with FWW , pt having to lean to the counter. Pt's O2 on 2.5Ll and sat. from 94-98%. Pt's respiration increased to 24 with labored breathing. OT ADL-Oral Care General Eval Oral Care Ability Independent OT ADL-Bathing Comments OT Bathing Comments Pt when asked if he would like to try to shower tomorrow, states does not shower at home only sponges off. For some reason, I just do not mix well with the water and therefore only sponge off. Spoke to pt's regarding whether pt able to use urinal in not able to make it to the bathroom due to SOB. Pt's states would rather pt walk to the bathroom but would be willing if needed fro pt to use a urinal if he could not make it endurance rios to get to the bathroom in time due to SOB. M5 OT- IP IADL's Start: 02/15/19 12:49 Freq: Status: Active Protocol: Document 09/21/18 12:49 [facility] (Rec: 09/21/18 13:37 [facility] [email or web address]) OT-Instrumental Activities of Daily Living Medication Management Medication Management Comments Pt states does his own medications M6 OT- IP Functional Cognition Start: 09/21/18 12:49 Freq: Status: Active Protocol: Document 09/24/18 12:57 [facility] (Rec: 09/24/18 13:11 [facility] [email or web address]) Cognitive Factors Limiting Selfcare Function Cognitive Ability Level of Alertness Alert Patient Orientation Name Place Situation Attention Span Ability Capable of Focused Attention Capable of Sustained Attention Ability to Follow Commands Able to Follow Multi-Step Commands Problem Solving Ability Needs Assist to Identify Solutions Cognitive Comments Cognitive Assessment Comments Pt easily frustrated today. O2 numbers on 2.5L when therapist came to see pt , however pt insistent O2 level needs to be at 3L. Nursing notified of pt's request. M7 OT- IP Mobility and Balance Start: 09/21/18 12:49 Freq: Status: Active Protocol: Document 09/24/18 12:57 [facility] (Rec: 09/24/18 13:11 [facility] [email or web address]) OT-Transfer Assessment Sit to and From Stand Sit to and from Stand Contact Guard Assistance 1 Person Assistance Transfers Transfer Ability Standby Assistance 1 Person Assistance Technique Transfer Destination Bed Chair Transfer Technique Stand Step Pivot Devices Transfer Assistive Devices Gait Belt Front Wheeled Walker Comments Mobility Comments Improved activity tolerance and able to walk to the sink from recliner with FWW and assist to help manage O2 tubing and stand from several minutes to do all grooming needs. OT- Balance Assessment Sitting Balance and Reactions Static Sitting Balance Ability Normal Dynamic Sitting Balance Ability Good Standing Balance and Reactions Static Standing Balance Ability Fair M8 OT- IP Objective Assessments Start: 09/21/18 12:49 Freq: Status: Active Protocol: Document 09/21/18 12:49 [facility] (Rec: 09/21/18 13:37 [facility] [email or web address]) OT Gross Range of Motion Upper Extremity Range of Motion Assessment Within Functional Limits OT Strength Comments Strength Comments BUE strength 4/5 M9 OT- IP Assessment and Plan Start: 09/21/18 12:49 Freq: Status: Active Protocol: Document 09/24/18 12:57 [facility] (Rec: 09/24/18 13:11 [facility] [email or web address]) OT Summary Assessment and Plan Potential Rehabilitation Potential Good Analytic Complexity at Evaluation Low Summary OT Impairments Strength Balance Functional Mobility Grooming Dressing Toileting Bathing Toilet Transfers Shower Transfers Progress Towards Goals Slow Progress due to Medical Issues Slow Progress due to Activity Tolerance Assessment Summary Pt continues to make improvements with activity tolerance , now able to stand at the sink with FWW. Pt will continue to benefit from skilled rehab when medically stable. Goals Dressing Goal Standby Assistance Toileting Goal Standby Assistance Bathing Goal Minimal Assistance Toilet Transfer Goal Standby Assistance Shower Transfer Goal Contact Guard Assistance Patient/Caregiver Education Goal Demonstrate Energy Conservation and Pacing OT-Other Goals BAthing-based on sponge bathing only as per pt does not shower. Days to Meet Goals 5 Frequency of Treatment Frequency Of Treatment Once a Day Treatment Plan OT Treatment Plan ADL Training Functional Mobility Patient/Family Education Discharge Planning Other Treatment Recommendations and Next Pt able to sponge bathing with Treatment Focus MOUNA for completeness and good safety awareness fro rest breaks. Discharge Recommendations OT Discharge Recommendations SNF Rehab Home Equipment Needs Shower chair, possible FWW
--- NOTE | 2018-09-24 15:01 | CM.DPC ---
DCP Cont: Per MD, will consult with ID MD Milligan to determine medication needs and pt likely could be ready for d/c to SNF in 1-2 days pending consult recommendations. Pt currently on 3L oxygen continuously and MD requesting RT to assess for Trilogy. RT contacted Albertina at [facility] who will complete bedside assessment today. Per Albertina with [facility], pt qualifies for Trilogy and is very motivated to attempt Trilogy. Albertina provided the necessary pwk to to sign and Albertina will contact [facility] regarding initiating Trilogy soon at their facility as they have a contract with [facility] but requested SW also alert [facility]. SW called kristen Membreno at [facility] and updated on pt status and that he qualifies for Trilogy and would like to start using Trilogy and confirming no concerns with starting it at [facility] through [facility]. Plan: to follow for likely pt d/c to [facility] in 1-2 days and [facility] following to start pt on Trilogy at [facility]. RODRIGO Lobo
[2018-09-24] MEDS: LORazepam 1 MG TABLET 0.5 MG PO (15:41)
--- NOTE | 2018-09-24 23:09 | PC.NURSE ---
Shift note: Patient had good evening, denies SOB at rest but sometimes appears slightly labored, respirations 20/minute, 2L O2 sat 99-100%, pt requests O2 be left at 2L because I will get winded if you turn it down. Ox3, he is using call button appropriately for needs. Refused to wear abd binder tonight. Denies other needs/concerns other than requesting sleep. Call button within reach, alarm active for safety.
[2018-09-25] VITALS (8 sets, daily range): BP systolic 130–138; BP diastolic 68–72; PULSE 66–98; RESP 16–24; TEMP 36.5–36.7; O2SAT 96–100
[2018-09-25] MEDS: SODIUM CHLORIDE 0.9% FLUSH 10 ML IV ×2 (03:00→08:43)
--- NOTE | 2018-09-25 04:12 | PC.NURSE ---
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 O2 sats in high 90's throughout the shift, pt on 1L nasal canula. Intermittent wet cough. Paula patent and draining clear yellow urine. PIV in right antecubital sluggish when flushed and red. Heart rate is distant, and pt has large abdominal hernia. No use of accessory muscles while breathing. Bed alarm on, makes needs known, will continue to monitor.
[2018-09-25] MEDS: ALBUTEROL/IPRATROPIUM 3 ML AMPUL INH ×3 (04:45→13:43)
[2018-09-25] MEDS: BUDESONIDE 0.5 MG/2 ML NEB INH (04:46)
[2018-09-25 06:08] LABS: Blood Urea Nitrogen 23 mg/dL (9-20); Calcium 9.9 mg/dL (8.4-10.2); Chloride 92 mmol/L (98-107); Estimated Glomerular Filt Rate > 60.0 mL/min (>60); Glucose 190 mg/dL (80-110); HEMOLYSIS < 15 (0-50); Potassium 4.7 mmol/L (3.4-5.1); Sodium 139 mmol/L (137-145)
[2018-09-25 06:10] LABS: Add Manual Diff / Slide Review YES; Hematocrit 38.3 % (41-53); Hemoglobin 12.3 g/dL (13.5-17.5); Mean Corpuscular Hemoglobin 29.4 PG (26-34); Mean Corpuscular Volume 91.8 fL (80-100); Platelet Count 276 X10^3/uL (150-400); Red Blood Cell Count 4.18 X10^6/uL (4.5-5.9); White Blood Cell Count 10.1 X10^3/uL (4.5-11.0)
[2018-09-25] MEDS: PANTOPRAZOLE 40 MG TABLET PO (06:11)
[2018-09-25 06:15] LABS: Carbon Dioxide 39 mmol/L (22-32)
[2018-09-25] MEDS: LORazepam 1 MG TABLET 0.5 MG PO (06:16)
[2018-09-25 07:15] LABS: Neutrophils Absolute Manual 8787 /uL (3000-5900); Nucleated Red Blood Cells 1 #/Diff; Total Cells Counted 100
[2018-09-25 07:17] LABS: Basophilic Stippling 1+; Hypochromasia 1+
--- NOTE | 2018-09-25 08:33 | PC.NURSE ---
Patient awake, sitting up in bed for breakfast.
[2018-09-25] MEDS: FUROSEMIDE 40 MG TABLET PO (08:36)
[2018-09-25] MEDS: DOCUSATE 100 MG CAPSULE PO (08:37)
[2018-09-25] MEDS: ASPIRIN EC 81 MG TABLET PO (08:37)
[2018-09-25] MEDS: levoFLOXacin 250 MG TABLET 750 MG PO (08:37)
[2018-09-25] MEDS: TAMSULOSIN 0.4 MG CAPSULE PO (08:37)
[2018-09-25] MEDS: predniSONE 20 MG TABLET PO (08:37)
[2018-09-25] MEDS: ITRACONAZOLE 200 MG 200 EACH PO (08:37)
[2018-09-25] MEDS: ENOXAPARIN 40 MG/0.4 ML SYRINGE SUBCUT (08:38)
[2018-09-25] MEDS: INSULIN ASPART 100 UNIT/ML INSULN PEN SUBCUT ×2 (08:42→11:51)
--- NOTE | 2018-09-25 09:06 | PM.DS.1 ---
History of Present Illness Date Patient Seen: 09/16/18 Chief complaint: SOB Narrative: Written by Dr. Sutherland: The patient is a 68-year-old male with known history of COPD, chronic hypoxic respiratory failure on home O2 at 3liters/minute and who presented on admission with progressive shortness of breath. Patient states that he was in his usual state health until the day prior to admission when he began having increasing shortness of breath. He states that he normally uses his nebulizer 3 times a day but because of his increasing problems he uses several times yesterday. He has a home O2 monitor and states that his O2 sat was around 94 but because of his increased symptoms he increased his L flow from 3 L to 4 L. despite this he continued to have ongoing problems. He states that he chronically coughs multiple times during the day and that he was not coughing any more frequently than what he considers normal. He also has a cough productive of swain to green phlegm. This has not changed either. He was using tobramycin in his nebs but this was discontinued and he was put on a different antibiotic pill. He states that he was taking 2 of those twice a day. Additionally he has been on prednisone 20 mg daily. He denied having a fever but states that with increased shortness of breath he has anxiety and with the anxiety he has sweating on the back of his neck. He did not take his temperature in the prior 24 hr. Because of his progressive symptoms he presented to the ED. He was in respiratory distress tachypneic with increased work of breathing and with use of accessory muscles of respiration. Chest x-ray did not reveal any acute infiltrate. There was noted to be subsegmental atelectasis and/or scarring. His CBC was remarkable for white count of 22 with 94.3% neutrophils 1.7 % lymphocytes 3.8% monos 0 eosinophils. Arterial blood gases were obtained his pH was 7.39 pCO2 was 65.0 PO2 was 101 bicarb was 40 O2 saturation was 97% on 3 L. he was given 3 neb treatment Solu-Medrol 125 mg. There was some mild improvement but he was still tachypneic in with increased work of breathing and therefore the hospitalist service was called for admission. Discharge Providers Date of admission: 09/16/18 16:51 Primary care physician: Rubens Olivier MD Consults: 09/16/18 14:15 Consult to Respiratory Therapy Evaluate & Treat Comment: Physician Instructions: Evaluate and treat 09/21/18 11:13 Consult to Occupational Therapy Evaluate & Treat Comment: Physician Instructions: Evaluate and treat Consult to Physical Therapy Evaluate & Treat Comment: Physician Instructions: Evaluate and Treat Discharge provider: Nel Morgan DO Discharge Date: 09/25/18 Summary Discharge Diagnosis: 1. Acute on chronic hypoxemic and hypercapneic respiratory failure, present on admission. Acute portion resolved. 2. Acute COPD exacerbation, present on admission. Active. 3. Acute tracheobronchitis on chronic allergic bronchopulmonary aspergillosis, present on admission. Active. 4. CAD and hyperlipidemia, chronic, present on admission. Stable. 5. BPH, chronic, present on admission. Stable. 6. Diabetes mellitus type II, non-insulin using, present on admission. Stable. Hospital Course: Chacorta Yanes is a 68-year-old male with past medical history significant for CAD status post coronary catheterization, hyperlipidemia, chronic hypoxemic and hypercapneic respiratory failure due to COPD on 3L continuous oxygen who presented with progressive shortness of breath and admitted for acute COPD exacerbation. 1. Acute on chronic hypoxemic and hypercapneic respiratory failure, present on admission. Acute portion resolved. -Secondary to his COPD exacerbation and treating as below. -Continue supplemental oxygen with oxygen saturation goal 88% or greater. The patient is on 3L continuously at baseline. -Consider Diamox for his diuretic as opposed to Lasix to help with his CO2 retention in future?? -ABG demonstrates significant and worsening hypercapnia with compensation but would benefit from Trilogy as patient requires nocturnal and daytime ventilation. Home BiPAP insufficient due to severity of COPD which is the primary cause of his chronic hypoxemic and hypercapnic respiratory failure. Contacted [facility] to qualify patient for trilogy and plan to provide at SNF. 2. Acute COPD exacerbation, present on admission. Active. -Continued supplemental oxygen with oxygen saturation goal of 88% or greater. Baseline oxygen requirements 3 L daily. -Continued DuoNeb every 4 hours while awake and every 2 hours as needed, budesonide 500 mcg neb twice daily and mucinex 600 mg p.o. twice daily. -Discussed the patient with his fountain roller assembler Dr. Moore, who recommends continuing itraconazole and prednisone taper as prescribed for ABPA as below. due to significant lung disease, bronchiectasis, and MAC. 3. Acute tracheobronchitis on chronic allergic bronchopulmonary aspergillosis, present on admission. Active. 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 Legionella urine antigen negative. -Continued itraconazole and prednisone which were started for likely ABPA by his fountain roller assembler and infectious disease, Dr. Moore and Dr. Milligan, respectively. -Continued Levaquin 750 mg daily for pseudomonal coverage of stenotrophomonas and tracheobronchitis. -Discussed with ID, Dr. Milligan, who recommends continuing antibiotics as above and sending stenotrophomonas for sensitivity to minocycline as it will eventually become resistant to Levaquin and the mold for identification and sensitivities, pending and will need to be followed by ID. 4. CAD and hyperlipidemia, chronic, present on admission. Stable. -Continued home aspirin 81 mg daily and atorvastatin 20 mg daily at bedtime. 5. BPH, chronic, present on admission. Stable. -He had several episodes of acute urinary obstruction with symptomatic bladder distension and a Paula catheter was placed. Paula removed prior to discharge and he is voiding without difficulty. -Continued tamsulosin 0.4 mg daily (held initially for 5 days). 6. Diabetes mellitus type II, non-insulin using, present on admission. Stable. -Hemoglobin A1C 7.0% 09/2018. -Continued low dose correctional scale insulin and ACHS blood glucose checks. -Held metformin 1000 mg twice daily and restarted at time of discharge. -Continued carbohydrate consistent diet. Status at Discharge Functional status at discharge: uses cane/walker Overall status at discharge: patient is progressing back to baseline Exam Vital Signs (past 8 hours): - 09/25/18 03:15 09/25/18 04:46 09/25/18 04:47 Temperature 97.7 F Pulse Rate 66 Respiratory Rate 16 Blood Pressure 132/68 Pulse Oximetry 100 96 96 09/25/18 08:00 Temperature 97.9 F Pulse Rate 73 Respiratory Rate 24 Blood Pressure 138/72 Pulse Oximetry 100 Oxygen Delivery Method Nasal Cannula Oxygen Flow Rate 3 Narrative Exam Narrative: General: Elderly gentleman sitting in bed and in no acute distress, exhibiting pursed lip breathing, thin, appropriately interactive. HEENT: Normocephalic, atraumatic. External ears without defect. Pupils equal, round, and reactive to light and accommodation. Anicteric sclerae, moist conjunctivae, and no lid lag. Neck: Supple with full range of motion. No lymphadenopathy or thyromegaly. Cardiovascular: Regular rate and rhythm without murmurs, rubs, or gallops appreciated. Pulmonary: Diminished lung sounds throughout with course lung sounds throughout and scattered wheeze. Mild use of accessory muscles. Abdomen: Soft, bowel sounds present, large hernia in mid abdomen that is reducible, nontender, nondistended. No hepatosplenomegaly or masses appreciated. Extremities: No clubbing, cyanosis, or edema. Skin: Normal temperature, turgor, and texture; no rash, ulcers, or subcutaneous nodules appreciated. Neurological: Cranial nerves grossly intact. Psychiatric: Normal mood and affect. Alert and oriented to person, place, and time. Objective Labs Result Diagrams: 09/25/18 05:14 09/25/18 05:14 Labs: Laboratory Results - last 24 hr 09/25/18 09/25/18 05:14 05:14 WBC 10.1 RBC 4.18 L Hgb 12.3 L Hct 38.3 L MCV 91.8 MCH 29.4 MCHC 32.0 RDW 15.0 H Plt Count 276 Neut % (Auto) Not Reportable Lymph % (Auto) Not Reportable [place] % (Auto) Not Reportable Eos % (Auto) Not Reportable Baso % (Auto) Not Reportable Lymph # (Auto) Not Reportable [place] # (Auto) Not Reportable Baso # (Auto) Not Reportable Total Counted 100 Seg Neutrophils % 79.0 H Band Neutrophils % 8.0 H Lymphocytes % (Manual) 5.0 L Atypical Lymphs % 3.0 H Monocytes % (Manual) 4.0 Eosinophils % (Manual) 1.0 L Neutrophils # (Manual) 8787 H Nucleated RBCs 1 H Plt Morphology Comment . RBC Morphology See below Hypochromasia 1+ H Basophilic Stippling 1+ H Sodium 139 Potassium 4.7 Chloride 92 L Carbon Dioxide 39 H BUN 23 H Creatinine 0.50 L Estimated GFR > 60.0 BUN/Creatinine Ratio 46.0 H Glucose 190 H Calcium 9.9 Magnesium 2.0 Discharge Plan Discharge Plan Patient Disposition: SNF Transfer to: [facility] Under care of provider: Dr. Turner Transportation: Facility vehicle Discharge comment: You are being discharged to [facility]. You were prescribed levofloxacin to take for a total of 10 days (6 days left) to treat the bacteria in your sputum. Continue itraconazole 200 mg twice daily and prednisone taper as instructed by your fountain roller assembler, Dr. Moore, you are currently on 20 mg daily and will then decrease to 10 mg daily for 1.5 months then stop. Follow-up with your fountain roller assembler, Dr. Moore and infectious disease, Dr. Milligan as instructed. I certify the postop hospital detention care is medically necessary on a continuing basis for any conditions for which he/ she received care during this hospitalization.: Yes The receiving facility has agreed to accept transfer and provide medical treatment.: Yes Discharge Med Rec/Prescriptions Prescriptions: New levofloxacin 250 mg Tablet 750 mg PO DAILY 6 Days Qty: 6 RF: 0 pantoprazole 40 mg Tablet,Delayed Release (Dr/Ec) 40 mg PO 0700 Qty: 30 RF: 0 Continued guaifenesin [Mucinex] 600 MG tablet extended release 12hr 600 mg PO Q12H Qty: 0 RF: 0 multivitamin [Multiple Vitamins] 1 EACH tablet 1 tab PO DAILY Qty: 0 RF: 0 cholecalciferol (vitamin D3) [Vitamin D3] 1,000 UNIT tablet 1,000 unit PO QDAY Qty: 0 RF: 0 Proventil HFA 90 MCG/PUFF HFA aerosol inhaler 2 puff INH Q4H PRN (Reason: Shortness Of Breath) Qty: 0 RF: 0 Spiriva with HandiHaler 18 MCG capsule, w/inhalation device 1 puff INH DAILY Qty: 0 RF: 0 metformin [Glucophage XR] 500 mg tablet extended release 24 hr 1,000 mg PO BID Qty: 180 RF: 1 atorvastatin [Lipitor] 20 mg tablet 20 mg PO BEDTIME Qty: 90 RF: 1 furosemide 40 mg tablet 40 mg PO DAILY PRN (Reason: SOB) Qty: 30 RF: 5 Spacer: Inhaler Spacer Device 1 ea Inhalation DIRECTED RF: 0 Advair Diskus 250-50 mcg/dose Blister With Device 1 inh INHALATION Q12H RF: 0 ipratropium-albuterol 0.5 mg-3 mg(2.5 mg base)/3 mL Solution For Nebulization 1 dose Inhalation PRN PRN (Reason: Shortness Of Breath) RF: 0 albuterol sulfate 2.5 mg /3 mL (0.083 %) Solution For Nebulization 3 ml Inhalation TID RF: 0 aspirin 81 mg Tablet,Delayed Release (Dr/Ec) 81 mg PO DAILY RF: 0 tamsulosin [Flomax] 0.4 mg capsule 0.4 mg PO DAILY RF: 0 itraconazole 100 mg Capsule 200 mg PO BID RF: 0 Changed prednisone 10 mg tablet 20 mg PO DAILY Qty: 60 RF: 0 lorazepam 0.5 mg tablet 0.5 mg PO TID Qty: 60 RF: 2 Follow up/Referrals: You Moore [Other] - 1 Week Rubens Olivier MD [Primary Care Provider] - 1 Month Discharge Health Status Multidrug resistant organism: No MDRO Provider Discharge Instructions Diet: Carb-consistent/Diabetic, Low-fat, Low-sodium and Low-cholesterol Oxygen: 3L oxygen with Trilogyb as much as tolerated [facility] Rehab type: Physical therapy, Occupational therapy and Speech therapy Discharge Data Primary Care Provider: Rubens Olivier Attending Provider: Rubens Sutherland Admit Date/Time: 09/16/18 16:51
--- NOTE | 2018-09-25 12:18 | CM.DPC ---
DCP/continued: Received notification from Dr. Morgan that patient okay to d/c to SNF today. Current d/c plan is for patient to go to [facility]. INVERTED BLOCK OPERATOR placed call to [facility], spoke with Jenn. She confirms that they can accept today. Orders to be faxed to [facility] when they become available. Met with patient and he is aware and agreeable to above d/c plan. DOMINIC signed. Patient scheduled to be picked up at approximately 3:00pm. [facility] aware that [facility] will be providing trilogy at facility. P: [facility] today. RN updated with picker and sorter load and unload time. RODRIGO Murphy
--- NOTE | 2018-09-25 12:20 | PC.NURSE ---
Paula pulled with 50cc out. Urine slightly pink. Pt tolerated well.
--- NOTE | 2018-09-25 13:35 | P.DS_ITS ---
History of Present Illness Date Patient Seen: 09/16/18 Chief complaint: SOB Narrative: Written by Dr. Sutherland: The patient is a 68-year-old male with known history of COPD, chronic hypoxic respiratory failure on home O2 at 3liters/minute and who presented on admission with progressive shortness of breath. Patient states that he was in his usual state health until the day prior to admission when he began having increasing shortness of breath. He states that he normally uses his nebulizer 3 times a day but because of his increasing problems he uses several times yesterday. He has a home O2 monitor and states that his O2 sat was around 94 but because of his increased symptoms he increased his L flow from 3 L to 4 L. despite this he continued to have ongoing problems. He states that he chronically coughs multiple times during the day and that he was not coughing any more frequently than what he considers normal. He also has a cough productive of swain to green phlegm. This has not changed either. He was using tobramycin in his nebs but this was discontinued and he was put on a diff erent antibiotic pill. He states that he was taking 2 of those twice a day. Additionally he has been on prednisone 20 mg daily. He denied having a fever but states that with increased shortness of breath he has anxiety and with the anxiety he has sweating on the back of his neck. He did not take his temperature in the prior 24 hr. Because of his progressive symptoms he presented to the ED. He was in respiratory distress tachypneic with increased work of breathing and with use of accessory muscles of respiration. Chest x-ray did not reveal any acute infiltrate. There was noted to be subsegmental atelectasis and/or scarring. His CBC was remarkable for white count of 22 with 94.3% neutrophils 1.7 % lymphocytes 3.8% monos 0 eosinophils. Arterial blood gases were obtained his pH was 7.39 pCO2 was 65.0 PO2 was 101 bicarb was 40 O2 saturation was 97% on 3 L. he was given 3 neb treatment Solu-Medrol 125 mg. There was some mild improvement but he was still tachypneic in with increased work of breathing and therefore the hospitalist service was called for admission. Discharge Providers Date of admission: 09/16/18 16:51 Primary care physician: Rubens Olivier MD Consults: 09/16/18 14:15 Consult to Respiratory Therapy Evaluate & Treat Comment: Physician Instructions: Evaluate and treat 09/21/18 11:13 Consult to Occupational Therapy Evaluate & Treat Comment: Physician Instructions: Evaluate and treat Consult to Physical Therapy Evaluate & Treat Comment: Physician Instructions: Evaluate and Treat Discharge provider: Nel Morgan DO Discharge Date: 09/25/18 Summary Discharge Diagnosis: 1. Acute on chronic hypoxemic and hypercapneic respiratory failure, present on admission. Acute portion resolved. 2. Acute COPD exacerbation, present on admission. Active. 3. Acute tracheobronchitis on chronic allergic bronchopulmonary aspergillosis, present on admission. Active. 4. CAD and hyperlipidemia, chronic, present on admission. Stable. 5. BPH, chronic, present on admission. Stable. 6. Diabetes mellitus type II, non-insulin using, present on admission. Stable. Hospital Course: Chacorta Yanes is a 68-year-old male with past medical history significant for CAD status post coronary catheterization, hyperlipidemia, chronic hypoxemic and hypercapneic respiratory failure due to COPD on 3L continuous oxygen who presented with progressive shortness of breath and admitted for acute COPD exacerbation. 1. Acute on chronic hypoxemic and hypercapneic respiratory failure, present on admission. Acute portion resolved. -Secondary to his COPD exacerbation and treating as below. -Continue supplemental oxygen with oxygen saturation goal 88% or greater. The patient is on 3L continuously at baseline. -Consider Diamox for his diuretic as opposed to Lasix to help with his CO2 retention in future?? -ABG demonstrates significant and worsening hypercapnia with compensation but would benefit from Trilogy as patient requires nocturnal and daytime ventilation. Home BiPAP insufficient due to severity of COPD which is the primary cause of his chronic hypoxemic and hypercapnic respiratory failure. Contacted [facility] to qualify patient for trilogy and plan to provide at SNF. 2. Acute COPD exacerbation, present on admission. Active. -Continued supplemental oxygen with oxygen saturation goal of 88% or greater. Baseline oxygen requirements 3 L daily. -Continued DuoNeb every 4 hours while awake and every 2 hours as needed, budesonide 500 mcg neb twice daily and mucinex 600 mg p.o. twice daily. -Discussed the patient with his speech coach Dr. Moore, who recommends continuing itraconazole and prednisone taper as prescribed for ABPA as below. due to significant lung disease, bronchiectasis, and MAC. 3. Acute tracheobronchitis on chronic allergic bronchopulmonary aspergillosis, present on admission. Active. 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 Legionella urine an tigen negative. -Continued itraconazole and prednisone which were started for likely ABPA by his speech coach and infectious disease, Dr. Moore and Dr. Milligan, respectively. -Continued Levaquin 750 mg daily for pseudomonal coverage of stenotrophomonas and tracheobronchitis. -Discussed with ID, Dr. Milligan, who recommends continuing antibiotics as above and sending stenotrophomonas for sensitivity to minocycline as it will eventually become resistant to Levaquin and the mold for identification and sensitivities, pending and will need to be followed by ID. 4. CAD and hyperlipidemia, chronic, present on admission. Stable. -Continued home aspirin 81 mg daily and atorvastatin 20 mg daily at bedtime. 5. BPH, chronic, present on admission. Stable. -He had several episodes of acute urinary obstruction with symptomatic bladder distension and a Paula catheter was placed. Paula removed prior to discharge and he is voiding without difficulty. -Continued tamsulosin 0.4 mg daily (held initially for 5 days). 6. Diabetes mellitus type II, non-insulin using, present on admission. Stable. -Hemoglobin A1C 7.0% 09/2018. -Continued low dose correctional scale insulin and ACHS blood glucose checks. -Held metformin 1000 mg twice daily and restarted at time of discharge. -Continued carbohydrate consistent diet. Status at Discharge Functional status at discharge: uses cane/walker Overall status at discharge: patient is progressing back to baseline Exam Vital Signs (past 8 hours): - 09/25/18 03:15 09/25/18 04:46 09/25/18 04:47 Temperature 97.7 F Pulse Rate 66 Respiratory Rate 16 Blood Pressure 132/68 Pulse Oximetry 100 96 96 09/25/18 08:00 Temperature 97.9 F Pulse Rate 73 Respiratory Rate 24 Blood Pressure 138/72 Pulse Oximetry 100 Oxygen Delivery Method Nasal Cannula Oxygen Flow Rate 3 Narrative Exam Narrative: General: Elderly gentleman sitting in bed and in no acute distress, exhibiting pursed lip breathing, thin, appropriately interactive. HEENT: Normocephalic, atraumatic. External ears without defect. Pupils equal, round, and reactive to light and accommodation. Anicteric sclerae, moist conjunctivae, and no lid lag. Neck: Supple with full range of motion. No lymphadenopathy or thyromegaly. Cardiovascular: Regular rate and rhythm without murmurs, rubs, or gallops appreciated. Pulmonary: Diminished lung sounds throughout with course lung sounds throughout and scattered wheeze. Mild use of accessory muscles. Abdomen: Soft, bowel sounds present, large hernia in mid abdomen that is reducible, nontender, nondistended. No hepatosplenomegaly or masses appreciated. Extremities: No clubbing, cyanosis, or edema. Skin: Normal temperature, turgor, and texture; no rash, ulcers, or subcutaneous nodules appreciated. Neurological: Cranial nerves grossly intact. Psychiatric: Normal mood and affect. Alert and oriented to person, place, and time. Objective Labs Result Diagrams: 09/25/18 05:14 09/25/18 05:14 Labs: Laboratory Results - last 24 hr 09/25/18 09/25/18 05:14 05:14 WBC 10.1 RBC 4.18 L Hgb 12.3 L Hct 38.3 L MCV 91.8 MCH 29.4 MCHC 32.0 RDW 15.0 H Plt Count 276 Neut % (Auto) Not Reportable Lymph % (Auto) Not Reportable Mccreary % (Auto) Not Reportable Eos % (Auto) Not Reportable Baso % (Auto) Not Reportable Lymph # (Auto) Not Reportable Mccreary # (Auto) Not Reportable Baso # (Auto) Not Reportable Total Counted 100 Seg Neutrophils % 79.0 H Band Neutrophils % 8.0 H Lymphocytes % (Manual) 5.0 L Atypical Lymphs % 3.0 H Monocytes % (Manual) 4.0 Eosinophils % (Manual) 1.0 L Neutrophils # (Manual) 8787 H Nucleated RBCs 1 H Plt Morphology Comment . RBC Morphology See below Hypochromasia 1+ H Basophilic Stippling 1+ H Sodium 139 Potassium 4.7 Chloride 92 L Carbon Dioxide 39 H BUN 23 H Creatinine 0.50 L Estimated GFR > 60.0 BUN/Creatinine Ratio 46.0 H Glucose 190 H Calcium 9.9 Magnesium 2.0 Discharge Plan Discharge Plan Patient Disposition: SNF Transfer to: [facility] Under care of provider: Dr. Turner Transportation: Facility vehicle Discharge comment: You are being discharged to [facility]. You were prescribed levofloxacin to take for a total of 10 days (6 days left) to treat the bacteria in your sputum. Continue itraconazole 200 mg twice daily and prednisone taper as instructed by your speech coach, Dr. Moore, you are currently on 20 mg daily and will then decrease to 10 mg daily for 1.5 months then stop. Follow-up with your speech coach, Dr. Moore and infectious disease, Dr. Milligan as instructed. I certify the postop hospital fdc care is medically necessary on a continuing basis for any conditions for which he/ she received care during this hospitalization.: Yes The receiving facility has agreed to accept transfer and provide medical treatment.: Yes Discharge Med Rec/Prescriptions Prescriptions: New levofloxacin 250 mg Tablet 750 mg PO DAILY 6 Days Qty: 6 RF: 0 pantoprazole 40 mg Tablet,Delayed Release (Dr/Ec) 40 mg PO 0700 Qty: 30 RF: 0 Continued guaifenesin [Mucinex] 600 MG tablet extended release 12hr 600 mg PO Q12H Qty: 0 RF: 0 multivitamin [Multiple Vitamins] 1 EACH tablet 1 tab PO DAILY Qty: 0 RF: 0 cholecalciferol (vitamin D3) [Vitamin D3] 1,000 UNIT tablet 1,000 unit PO QDAY Qty: 0 RF: 0 Proventil HFA 90 MCG/PUFF HFA aerosol inhaler 2 puff INH Q4H PRN (Reason: Shortness Of Breath) Qty: 0 RF: 0 Spiriva with HandiHaler 18 MCG capsule, w/inhalation device 1 puff INH DAILY Qty: 0 RF: 0 metformin [Glucophage XR] 500 mg tablet extended release 24 hr 1,000 mg PO BID Qty: 180 RF: 1 atorvastatin [Lipitor] 20 mg tablet 20 mg PO BEDTIME Qty: 90 RF: 1 furosemide 40 mg tablet 40 mg PO DAILY PRN (Reason: SOB) Qty: 30 RF: 5 Spacer: Inhaler Spacer Device 1 ea Inhalation DIRECTED RF: 0 Advair Diskus 250-50 mcg/dose Blister With Device 1 inh INHALATION Q12H RF: 0 ipratropium-albuterol 0.5 mg-3 mg(2.5 mg base)/3 mL Solution For Nebulization 1 dose Inhalation PRN PRN (Reason: Shortness Of Breath) RF: 0 albuterol sulfate 2.5 mg /3 mL (0.083 %) Solution For Nebulization 3 ml Inhalation TID RF: 0 aspirin 81 mg Tablet,Delayed Release (Dr/Ec) 81 mg PO DAILY RF: 0 tamsulosin [Flomax] 0.4 mg capsule 0.4 mg PO DAILY RF: 0 itraconazole 100 mg Capsule 200 mg PO BID RF: 0 Changed prednisone 10 mg tablet 20 mg PO DAILY Qty: 60 RF: 0 lorazepam 0.5 mg tablet 0.5 mg PO TID Qty: 60 RF: 2 Follow up/Referrals: You Moore [Other] - 1 Week Rubens Olivier MD [Primary Care Provider] - 1 Month Discharge Health Status Multidrug resistant organism: No MDRO Provider Discharge Instructions Diet: Carb-consistent/Diabetic, Low-fat, Low-sodium and Low-cholesterol Oxygen: 3L oxygen with Trilogyb as much as tolerated [facility] Rehab type: Physical therapy, Occupational therapy and Speech therapy Discharge Data Primary Care Provider: Rubens Olivier Attending Provider: Rubens Sutherland Admit Date/Time: 09/16/18 16:51
--- NOTE | 2018-09-25 14:00 | PT.IPTN ---
Current Diagnoses Chronic obstructive pulmonary disease with (acute) exacerbation (09/16/18) Chronic obstructive pulmonary disease, unspecified (09/16/18) Physical Therapy Treatment Note M2 PT-IP Current Condition Start: 09/21/18 14:40 Freq: NEEDED Status: Active Protocol: Document 09/21/18 14:00 AB (Rec: 09/21/18 15:00 AB [id number]) Physical Therapy Current Condition Current Condition Evaluation Date 09/21/18 Treatment Diagnosis COPD; generalized weakness Onset Date 09/16/18 Precautions Brace has an abdominal brace/binder to support his hernia Other Precautions O2 sat M3 PT-IP Subjective Start: 09/21/18 14:40 Freq: NEEDED Status: Active Protocol: Document 09/25/18 13:59 AB (Rec: 09/25/18 14:00 AB [id number]) Subjective Physical Therapy Visit Type Type Patient Refusal Notes per OT: pt wants to let PT know that he does not want to have therapy and that he is just waiting for his ride for d/c
--- NOTE | 2018-09-25 14:01 | OT.IP.TRT ---
Current Diagnoses Chronic obstructive pulmonary disease with (acute) exacerbation (09/16/18) Chronic obstructive pulmonary disease, unspecified (09/16/18) Occupational Therapy Treatment Note M2 OT-IP Current Condition Start: 09/21/18 12:49 Freq: Status: Active Protocol: Document 09/21/18 12:49 [facility] (Rec: 09/21/18 13:37 [facility] [id number]) Occupational Therapy Current Condition Current Condition Evaluation Date 09/21/18 Treatment Diagnosis Acute COPD, weakness Diagnosis Onset Date 09/16/18 M3 OT- IP Subjective and Pain Start: 09/21/18 12:49 Freq: Status: Active Protocol: Document 09/25/18 14:01 [facility] (Rec: 09/25/18 14:01 [facility] [id number]) OT- Subjective Occupational Therapy Visit Type Type Patient Refusal Notes Pt waiting to go to [facility] for SNF today and therefore did not want to be seen for therapy today.
[2018-09-25] MEDS: LORazepam 1 MG TABLET PO (14:37)
--- NOTE | 2018-09-25 15:39 | PC.NURSE ---
DC note: Employee from [facility] here to pick patient up, did not bring oxygen tank. Came back with wheelchair & O2 tank. Transferred to wheelchair, 3L O2 applied via portable tank. Wearing gown & socks, declined to put on teeshirt or own pants. Wrapped in warm blankets in prep for transfer to ER entrance/[facility] van. All belongings & pt's own med from pharmacy sent with patient. present at time of discharge, assisting to transfer belongings to facility. Transfer packet sent with [facility] employee.
== END 2018-09-25 15:46 | DRG 189 ==
LOC: ED 16:51 → AC 16:56
PROVIDERS: Family Medicine; Internal Medicine; Nurse Practitioner Adult Health; Admitting Provider Internal Medicine; Emergency Provider Emergency Medicine; Family Provider Student in an Organized Health Care Education/Training Program; PCP Student in an Organized Health Care Education/Training Program; Visit Provider Internal Medicine
DX: J96.22 Acute and chronic respiratory failure with hypercapnia (principal); J44.1 Chronic obstructive pulmonary disease with (acute) exacerbation; B44.1 Other pulmonary aspergillosis; J44.0 Chronic obstructive pulmonary disease with (acute) lower respiratory infection; B44.9 Aspergillosis, unspecified; J96.21 Acute and chronic respiratory failure with hypoxia; Z99.81 Dependence on supplemental oxygen; J40 Bronchitis, not specified as acute or chronic; I25.10 Atherosclerotic heart disease of native coronary artery without angina pectoris; E78.5 Hyperlipidemia, unspecified; E11.9 Type 2 diabetes mellitus without complications; Z87.891 Personal history of nicotine dependence; Z79.84 Long term (current) use of oral hypoglycemic drugs; N40.0 Benign prostatic hyperplasia without lower urinary tract symptoms; B96.89 Other specified bacterial agents as the cause of diseases classified elsewhere
CPT/HCPCS: 36415; 36591; 36600; 71045; 71046; 80048; 81001; 81003; 81015; 82550; 82805; 82962; 83036; 83605; 83735; 83880; 84145; 84484; 85025; 87070; 87077; 87107; 87186; 87205; 87449; 87633; 93005; 93041; 94640; 94760; 94762; 96374; 97116; 97162; 97165; 97530; 97535; 99285; J1650; J1956; J2060; J2270; J2930; J7613

== ENCOUNTER → 2018-10-03 09:20 | Outpatient (CLI) | payer SELFPAY ==
[2018-07-05 11:59] VITALS: PULSE 84; RESP 24; O2SAT 98
[2018-09-16 18:23] VITALS: BMI 23.3
[2018-10-03 09:56] LABS: PCO2 ABG 51.1 mmHg (35-45); PO2 ABG 102 mmHg (80-100)
[2018-10-03 09:57] LABS: Fractionated Inspired Oxygen 0.32; HCO3 ABG 31 mmol/L (22-26); Oxygen Saturation ABG 98 % (95-100); TCO2 ABG 33 mmol/L (21-31)
== END ==
PROVIDERS: Family Provider Student in an Organized Health Care Education/Training Program; PCP Student in an Organized Health Care Education/Training Program; Visit Provider Nurse Practitioner Family
DX: J44.1 Chronic obstructive pulmonary disease with (acute) exacerbation (principal); E11.9 Type 2 diabetes mellitus without complications
CPT/HCPCS: 36600; 82805

== ENCOUNTER 2018-10-07 19:05 | Emergency (ER) | payer MEDICARE, OTHER, SELFPAY ==
[2018-07-05 11:59] VITALS: PULSE 84; RESP 24; O2SAT 98
[2018-09-16 18:23] VITALS: BMI 23.3
[2018-10-07 19:05] VITALS: BP 168/66; PULSE 92; RESP 20; TEMP 36.5; O2SAT 99; BMI 23.3
[2018-10-07 19:30] VITALS: BP 140/61; PULSE 87; O2SAT 98
[2018-10-07 20:00] VITALS: BP 145/61; PULSE 85; O2SAT 99
[2018-10-07 20:30] VITALS: BP 137/58; PULSE 90; O2SAT 98
--- NOTE | 2018-10-07 21:07 | PC.NURSE ---
nurse at [facility] called. report given to nurse and nurse calling for patient a ride back to senior care. provider aware and no new orders at this time.
[2018-10-07 21:09] VITALS: BP 134/56; PULSE 90; O2SAT 98
--- NOTE | 2018-10-07 21:11 | PC.NURSE ---
patient arrived tonight with a urinary catheter that was clogged and was associated with suprapubic pressure. provider ordered for catheter to be flushed. attempted to flush catheter with some success but salsa would not continue to drain. salas started to leak around the meatus when flushing. catheter replaced with urine output of 200ml. patient reports that he feels better and has no more pressure. provider aware and no new orders at this time. patient tolerated well.
[2018-10-07 21:29] VITALS: BP 130/61; PULSE 92; RESP 18; TEMP 36.7; O2SAT 99
--- NOTE | 2018-10-08 01:28 | ED.MALEGU ---
HPI - Male Genitourinary General Chief complaint: Urogenital-Male Stated complaint: Blocked salas? Source: patient Mode of arrival: ambulatory Limitations: no limitations History of Present Illness HPI Narrative: 5-year-old former smoker with history of COPD and BPH presents with complaint that his Salas catheter is not draining over the course of the day. He states he has had some small clots past and he has some mild suprapubic tenderness. Denies fever or chills nor nausea or vomiting. Onset (ago): hour(s) Duration: constant Severity: mild Reports denies other symptoms Related Data Home Medications Medication Instructions Recorded Confirmed cholecalciferol (vitamin D3) 1,000 unit PO QDAY #0 02/07/17 09/16/18 [Vitamin D3] guaifenesin [Mucinex] 600 mg PO Q12H #0 02/07/17 09/16/18 multivitamin [Multiple Vitamins] 1 tab PO DAILY #0 02/07/17 09/16/18 Proventil HFA 2 puff INH Q4H PRN #0 02/08/17 09/16/18 Spiriva with HandiHaler 1 puff INH DAILY #0 08/03/17 09/16/18 Advair Diskus 1 inh INHALATION Q12H 01/26/18 09/16/18 Spacer: Inhaler Spacer Device 1 ea INHALATION DIRECTED 01/26/18 09/16/18 albuterol sulfate 3 ml INHALATION TID 01/26/18 09/16/18 aspirin 81 mg PO DAILY 01/26/18 09/16/18 ipratropium-albuterol 1 dose INHALATION PRN PRN 01/26/18 09/16/18 tamsulosin [Flomax] 0.4 mg PO DAILY 07/06/18 09/16/18 itraconazole 200 mg PO BID 09/17/18 09/17/18 Previous Rx's Medication Instructions Recorded metformin ER 500 mg 1,000 mg PO BID #180 tab 06/21/18 tablet,extended release 24 hr atorvastatin 20 mg tablet 20 mg PO BEDTIME #90 tab 08/20/18 furosemide 40 mg tablet 40 mg PO DAILY PRN #30 tab 08/21/18 lorazepam 0.5 mg PO TID #60 tab 09/25/18 pantoprazole 40 mg PO 0700 #30 tab 09/25/18 prednisone 20 mg PO DAILY #60 tab 09/25/18 Allergies Allergy/AdvReac Type Severity Reaction Status Date / Time felodipine [FELODIPINE] Allergy Intermediate SWELLING Verified 07/27/18 15:26 Review of Systems Constitutional Denies chills, Denies fever(s), Denies lethargy and Denies weakness Eyes Denies change in vision, Denies eye discharge, Denies irritation and Denies loss of vision ENT Ears, Nose, Mouth, and Throat: Denies change in voice, Denies neck pain and Denies sore throat Cardiovascular Denies chest pain, Denies irregular heart rhythm, Denies lightheadedness, Denies palpitations, Denies dyspnea, Denies dyspnea on exertion and Denies orthopnea Respiratory Denies cough, Denies dyspnea, Denies dyspnea on exertion and Denies wheezing Gastrointestinal Gastrointestinal: Denies abdominal pain, Denies change in bowel habits, Denies diarrhea, Denies nausea and Denies vomiting Genitourinary Reports hematuria, Denies flank pain, Denies urinary incontinence and Denies urinary urgency Musculoskeletal Denies neck pain Integumentary/Breasts Denies pruritus, Denies erythema, Denies rash and Denies wounds Neurologic Denies confusion, Denies loss of vision and Denies weakness Psychiatric Denies anxiety, Denies confusion, Denies depression, Denies homicidal ideation and Denies suicidal ideation Endocrine Denies palpitations Hematologic/Lymphatic Denies easy bruising Allergic/Immunologic Denies wheezing [facility] Medical History Anxiety (Chronic Unknown) Peripheral vascular disease (Chronic Unknown) Hx of small bowel obstruction (Resolved 03/2015) Hyperlipemia (Chronic Unknown) Nontuberculous mycobacterial infection (Chronic 2014) Coronary artery disease (Chronic Unknown) History of colon cancer (Resolved ~2010) BPH (benign prostatic hyperplasia) (Chronic Unknown) COPD (chronic obstructive pulmonary disease) (Chronic Unknown) Diabetes (Chronic Unknown) COPD (chronic obstructive pulmonary disease) (Inactive) Dependent edema (Inactive) Surgical History H/O cardiac catheterization (Resolved 2010) S/P small bowel resection (Resolved 03/2015) Hx of hernia repair (Resolved 2008) S/P colon resection (Resolved 2010) Hx of cataract surgery (Resolved 2014) Family History Mother Cancer Father Congestive heart failure Social History household members: spouse and family Smoking Status: Former smoker alcohol intake: current Family History Mother Cancer Father Congestive heart failure Social History household members: spouse and family Smoking Status: Former smoker alcohol intake: current Exam Narrative Exam Narrative: GEN: AOx3 and in mild distress EYES: Pupils are equal, round, and reactive to light and accommodation. Extraoccular muscles are intact bilaterally. There is no subconjunctival hemorrhage or exudate. CHEST: Lungs are clear to auscultation bilaterally and free of wheezes, rales, or rhonchi. Heart rate is regular rhythm, there are no murmurs, clicks, rubs, or gallops. There is no chest wall tenderness. ABD: Abdomen is soft and nontender. Large ventral hernia present, hernia belt. There is no guarding or rebound. Bowel sounds are normal in all 4 quadrants. There is no mass or organomegaly. Salas in place with small clots noted EXT: Full painless ROM of all extremities with no loss of sensation or strength. SKIN: Warm, pink, and dry. No erythema or rash Initial Vital Signs Initial Vital Signs: Vital Signs Temperature 97.7 F 10/07/18 19:05 Pulse Rate 92 H 10/07/18 19:05 Respiratory Rate 20 10/07/18 19:05 Blood Pressure 168/66 H 10/07/18 19:05 Pulse Oximetry 99 10/07/18 19:05 Course Reevaluation(s) Reevaluation #1: salas flushed by nursing with good flow Vital Signs - 8 hr 10/07/18 19:05 10/07/18 19:30 10/07/18 20:00 Temperature 97.7 F Pulse Rate 92 H 87 85 Respiratory Rate 20 Blood Pressure 168/66 H Blood Pressure [Right Arm] 140/61 145/61 H Pulse Oximetry 99 98 99 10/07/18 20:30 10/07/18 21:09 10/07/18 21:29 Temperature 98.1 F Pulse Rate 90 90 92 H Respiratory Rate 18 Blood Pressure Blood Pressure [Right Arm] 137/58 L 134/56 L 130/61 Pulse Oximetry 98 98 99 Discharge Plan Departure Patient Disposition: Home Clinical Impression: Complication, blocked Salas catheter Qualifiers: Encounter type: initial encounter Qualified Code(s): T83.091A - Other mechanical complication of indwelling urethral catheter, initial encounter Discharge Date/Time: 10/07/18 21:37 Interventions: ED Discharge Assessment Last Done: 10/07/18 21:37 Instructions: How to Care for Your Salas Catheter -- Male Activity Restrictions/Additional Instructions: *You have been diagnosed with [ Salas catheter problem ] *What to do: *Take medications as directed *Follow up with your primary care provider in 2-3 days, call for an appointment. Let them know you were seen in the Emergency Department and that we ask that you be seen in follow up *Return to ER if you should have any new, worsening or concerning symptoms Prescriptions: No Action guaifenesin [Mucinex] 600 MG tablet extended release 12hr 600 mg PO Q12H Qty: 0 RF: 0 multivitamin [Multiple Vitamins] 1 EACH tablet 1 tab PO DAILY Qty: 0 RF: 0 cholecalciferol (vitamin D3) [Vitamin D3] 1,000 UNIT tablet 1,000 unit PO QDAY Qty: 0 RF: 0 Proventil HFA 90 MCG/PUFF HFA aerosol inhaler 2 puff INH Q4H PRN (Reason: Shortness Of Breath) Qty: 0 RF: 0 Spiriva with HandiHaler 18 MCG capsule, w/inhalation device 1 puff INH DAILY Qty: 0 RF: 0 metformin [Glucophage XR] 500 mg tablet extended release 24 hr 1,000 mg PO BID Qty: 180 RF: 1 atorvastatin [Lipitor] 20 mg tablet 20 mg PO BEDTIME Qty: 90 RF: 1 furosemide 40 mg tablet 40 mg PO DAILY PRN (Reason: SOB) Qty: 30 RF: 5 Spacer: Inhaler Spacer Device 1 ea Inhalation DIRECTED RF: 0 Advair Diskus 250-50 mcg/dose Blister With Device 1 inh INHALATION Q12H RF: 0 ipratropium-albuterol 0.5 mg-3 mg(2.5 mg base)/3 mL Solution For Nebulization 1 dose Inhalation PRN PRN (Reason: Shortness Of Breath) RF: 0 albuterol sulfate 2.5 mg /3 mL (0.083 %) Solution For Nebulization 3 ml Inhalation TID RF: 0 aspirin 81 mg Tablet,Delayed Release (Dr/Ec) 81 mg PO DAILY RF: 0 tamsulosin [Flomax] 0.4 mg capsule 0.4 mg PO DAILY RF: 0 itraconazole 100 mg Capsule 200 mg PO BID RF: 0 pantoprazole 40 mg Tablet,Delayed Release (Dr/Ec) 40 mg PO 0700 Qty: 30 RF: 0 prednisone 10 mg tablet 20 mg PO DAILY Qty: 60 RF: 0 lorazepam 0.5 mg tablet 0.5 mg PO TID Qty: 60 RF: 2 Referrals: Rubens Olivier MD [Primary Care Provider] -
== END 2018-10-07 21:37 | disposition home or self-care (01) ==
PROVIDERS: Emergency Provider Emergency Medicine; Family Provider Student in an Organized Health Care Education/Training Program; PCP Student in an Organized Health Care Education/Training Program
DX: T83.091A Other mechanical complication of indwelling urethral catheter, initial encounter (principal)
CPT/HCPCS: 51701; 99283

== ENCOUNTER 2018-10-09 16:40 | Emergency (ER) | payer MEDICARE, OTHER, SELFPAY ==
[2018-07-05 11:59] VITALS: PULSE 84; RESP 24; O2SAT 98
[2018-09-16 18:23] VITALS: BMI 23.3
[2018-10-09 16:43] VITALS: BP 135/56; PULSE 87; RESP 28; TEMP 36.8; O2SAT 95; BMI 23.5
--- NOTE | 2018-10-09 16:44 | DI.RAD.S_ITS ---
PROCEDURE: XR CHEST 1V INDICATIONS: Shortness of breath TECHNIQUE: One view of the chest was acquired. COMPARISON: [facility], CR, XR CHEST 2V, 09/22/2018, 9:38. FINDINGS: Surgical changes and devices: None. Lungs and pleura: Chronic emphysematous changes in bilateral lung denney are seen. Scarring/atelectasis at bilateral lung bases are noted. Left apical scarring is also seen. No definite focal infiltrate. No pleural effusions or pneumothorax. Mediastinum: Mediastinal contours appear normal. Heart size is normal. Bones and chest wall: No suspicious bony lesions. Overlying soft tissues appear unremarkable. IMPRESSION: COPD and bibasilar scarring/atelectasis. No definite focal infiltrate. No pneumothorax. Dictated by: Wally Rajput M.D. on 10/09/2018 at 17:15 Approved by: Wally Rajput M.D. on 10/09/2018 at 17:16
--- NOTE | 2018-10-09 16:52 | ED.SOB ---
HPI - SOB/Dyspnea General Chief Complaint: Shortness of Breath/Dyspnea Stated Complaint: SOB Time Seen by Provider: 10/09/18 16:41 Source: patient Mode of arrival: EMS Limitations: no limitations History of Present Illness Patient is a 68-year-old male. Has a history of COPD. At baseline is on 3 L of nasal cannula. Was admitted to the hospital here the middle of last month. For COPD exacerbation. He states that earlier today started having problems breathing. Did 1 nebulizer prior to EMS arriving and another nebulizer by EMS on the way here to the ER. No fevers. Does feel like he has chest congestion cough. Related Data Home Medications Medication Instructions Recorded Confirmed cholecalciferol (vitamin D3) 1,000 unit PO DAILY #0 02/07/17 10/09/18 [Vitamin D3] guaifenesin [Mucinex] 600 mg PO Q12H #0 02/07/17 10/09/18 multivitamin [Multiple Vitamins] 1 tab PO DAILY #0 02/07/17 10/09/18 Spiriva with HandiHaler 1 puff INH DAILY #0 08/03/17 10/09/18 Advair Diskus 1 inh INHALATION Q12H 01/26/18 10/09/18 Spacer: Inhaler Spacer Device 1 ea INHALATION DIRECTED 01/26/18 10/09/18 albuterol sulfate 3 ml INHALATION TID 01/26/18 10/09/18 aspirin 81 mg PO DAILY 01/26/18 10/09/18 ipratropium-albuterol 1 dose INHALATION Q6H PRN 01/26/18 10/09/18 tamsulosin [Flomax] 0.4 mg PO DAILY 07/06/18 10/09/18 albuterol sulfate [Proventil HFA] 2 puff INHALATION Q4H PRN 10/09/18 10/09/18 bisacodyl 5 - 10 mg PO PRN PRN 10/09/18 10/09/18 bisacodyl 10 mg [place] PRN PRN 10/09/18 10/09/18 itraconazole 400 mg PO BID 10/09/18 10/09/18 magnesium hydroxide [Milk of 30 ml PO PRN PRN 10/09/18 10/09/18 Magnesia] metformin 1,000 mg PO BID 10/09/18 10/09/18 pantoprazole 40 mg PO DAILY 10/09/18 10/09/18 prednisone 10 mg PO DAILY 10/09/18 10/09/18 sodium phosphates [Fleet Enema] 1 ea [place] PRN PRN 10/09/18 10/09/18 Previous Rx's Medication Instructions Recorded atorvastatin 20 mg tablet 20 mg PO BEDTIME #90 tab 08/20/18 furosemide 40 mg tablet 40 mg PO DAILY PRN #30 tab 08/21/18 lorazepam 0.5 mg PO TID #60 tab 09/25/18 prednisone 40 mg PO DAILY #28 tab 10/09/18 Allergies Allergy/AdvReac Type Severity Reaction Status Date / Time felodipine [FELODIPINE] Allergy Intermediate SWELLING Verified 10/09/18 16:49 Review of Systems Constitutional Denies fever(s) Cardiovascular Denies chest pain, Reports dyspnea and Reports orthopnea Respiratory Reports chest congestion, Reports cough, Reports dyspnea and Reports wheezing Gastrointestinal Gastrointestinal: Denies abdominal pain and Denies change in stool character Integumentary/Breasts Denies rash Neurologic Denies behavioral changes Psychiatric Denies behavioral changes Hematologic/Lymphatic Denies easy bleeding and Denies easy bruising Allergic/Immunologic Reports wheezing PFSH Social History household members: spouse and family Smoking Status: Former smoker alcohol intake: current Exam Initial Vital Signs Initial Vital Signs: Vital Signs Temperature 98.3 F 10/09/18 16:43 Pulse Rate 87 10/09/18 16:43 Respiratory Rate 28 H 10/09/18 16:43 Blood Pressure 135/56 L 10/09/18 16:43 Pulse Oximetry 95 10/09/18 16:43 Const General: cooperative and No acute distress Orientation: alert, awake and oriented x3 HENMT Head: normal to inspection and normocephalic Resp Effort & Inspection: cough, labored, no pursed lip breathing, no retractions and tachypneic Auscultation: rhonchi and wheezes Cardio Rate: regular rate Rhythm: regular rhythm GI Palpation: No firm and No tender Other: Large abdominal hernia. Soft Skin Lesions: no lesions Rashes: no rashes Neuro General: alert and awake Cognition: normal cognition Speech: speech normal Extrem General: normal to inspection and capillary refill normal Psych Appearance: grossly normal and well kempt Course Orders Ordered: ED Orders 10/09/18 16:44 XR chest 1V Stat Arterial Blood Gas Stat 10/09/18 16:45 RT Consult Eval and Treat Now 10/09/18 16:47 EKG-12 Lead Stat 10/09/18 17:01 Arterial Blood Gas Stat 10/09/18 17:05 Influenza A and B by PCR Rapid Stat 10/09/18 17:18 B Type Natriuretic Peptide Stat Complete Blood Count AUTO DIFF Stat Comprehensive Metabolic Panel Stat Lactate (Lactic Acid) Stat Procalcitonin Stat Troponin I Stat 10/09/18 17:28 Blood Culture Stat Sodium Chloride (Normal Saline 0.9%) 1,000 mls @ 125 mls/hr IV CONT DIAZ Last Admin: 10/09/18 16:55 Dose: 125 mls/hr Discontinued Medications Albuterol/Ipratropium (Duoneb) 3 ml INH NOW ONE Stop: 10/09/18 16:43 Last Admin: 10/09/18 16:53 Dose: 3 ml Methylprednisolone (Solu-Medrol 125 Mg Vial) 125 mg IV NOW ONE Stop: 10/09/18 16:43 Last Admin: 10/09/18 16:55 Dose: 125 mg Vital Signs - 8 hr 10/09/18 16:43 10/09/18 16:53 10/09/18 17:14 Temperature 98.3 F Pulse Rate 87 90 Respiratory Rate 28 H 29 H Blood Pressure 135/56 L Blood Pressure [Right Arm] 138/55 L Pulse Oximetry 95 100 100 10/09/18 18:00 Temperature Pulse Rate 85 Respiratory Rate Blood Pressure Blood Pressure [Right Arm] 120/48 L Pulse Oximetry 98 MDM - SOB/Dyspnea Lab Data Attestation: I reviewed the patient's lab results. Result diagrams: 10/09/18 17:18 10/09/18 17:18 Lab Results 10/09/18 10/09/18 10/09/18 Range/Units 17:01 17:05 17:18 WBC 7.9 (4.5-11.0) X10^3/uL RBC 3.75 L (4.5-5.9) X10^6/uL Hgb 10.8 L (13.5-17.5) g/dL Hct 34.6 L (41-53) % MCV 92.1 (80-100) fL MCH 28.9 (26-34) PG MCHC 31.4 (30-36) % RDW 15.7 H (11.6-14.8) % Plt Count 289 (150-400) X10^3/uL Neut % (Auto) 88.0 H (50-75) % Lymph % (Auto) 5.8 L (25-40) % Childress % (Auto) 5.9 (3-14) % Eos % (Auto) 0.3 L (2-4) % Baso % (Auto) 0.0 (0-2) % Neut # (Auto) 7000 (9676-5024) /uL Lymph # (Auto) 500 L (6101-4614) /uL Childress # (Auto) 500 (0-900) /uL Eos # (Auto) 0 (0-450) /uL Baso # (Auto) 0 (0-100) /uL ABG pH 7.36 (7.35-7.45) ABG pCO2 60.5 H (35-45) mmHg ABG pO2 149 H (80-100) mmHg ABG HCO3 34 H (22-26) mmol/L ABG Total CO2 36 H (21-31) mmol/L ABG O2 Saturation 99 (95-100) % ABG Base Excess 9.0 H (-2-2) mmol/L FiO2 0.32 Sodium (137-145) mmol/L Potassium (3.4-5.1) mmol/L Chloride (98-107) mmol/L Carbon Dioxide (22-32) mmol/L BUN (9-20) mg/dL Creatinine (0.66-1.25) mg/dL Estimated GFR (>60) mL/min BUN/Creatinine Ratio (6-22) Glucose (80-110) mg/dL Lactate (0.7-2.1) mmol/L Calcium (8.4-10.2) mg/dL Total Bilirubin (0.2-1.3) mg/dL AST (17-59) IU/L ALT (21-72) IU/L Alkaline Phosphatase (38-126) U/L Troponin I (0.01-0.034) ng/mL B-Natriuretic Peptide < 100 (<100) Total Protein (6.3-8.2) g/dL Albumin (3.5-5.0) g/dL Globulin (1.7-4.1) g/dL Albumin/Globulin Ratio (1.0-2.8) Procalcitonin (<0.5) ng/mL Influenza A & B (PCR) Negative (Negative) 10/09/18 10/09/18 10/09/18 Range/Units 17:18 17:18 17:18 WBC (4.5-11.0) X10^3/uL RBC (4.5-5.9) X10^6/uL Hgb (13.5-17.5) g/dL Hct (41-53) % MCV (80-100) fL MCH (26-34) PG MCHC (30-36) % RDW (11.6-14.8) % Plt Count (150-400) X10^3/uL Neut % (Auto) (50-75) % Lymph % (Auto) (25-40) % Childress % (Auto) (3-14) % Eos % (Auto) (2-4) % Baso % (Auto) (0-2) % Neut # (Auto) (8072-8312) /uL Lymph # (Auto) (4031-8891) /uL Childress # (Auto) (0-900) /uL Eos # (Auto) (0-450) /uL Baso # (Auto) (0-100) /uL ABG pH (7.35-7.45) ABG pCO2 (35-45) mmHg ABG pO2 (80-100) mmHg ABG HCO3 (22-26) mmol/L ABG Total CO2 (21-31) mmol/L ABG O2 Saturation (95-100) % ABG Base Excess (-2-2) mmol/L FiO2 Sodium 138 (137-145) mmol/L Potassium 4.5 (3.4-5.1) mmol/L Chloride 96 L (98-107) mmol/L Carbon Dioxide 34 H (22-32) mmol/L BUN 13 (9-20) mg/dL Creatinine 0.50 L (0.66-1.25) mg/dL Estimated GFR > 60.0 (>60) mL/min BUN/Creatinine Ratio 26.0 H (6-22) Glucose 272 H D (80-110) mg/dL Lactate 3.9 H (0.7-2.1) mmol/L Calcium 9.6 (8.4-10.2) mg/dL Total Bilirubin 0.3 (0.2-1.3) mg/dL AST 11 L (17-59) IU/L ALT 18 L (21-72) IU/L Alkaline Phosphatase 87 (38-126) U/L Troponin I < 0.012 (0.01-0.034) ng/mL B-Natriuretic Peptide (<100) Total Protein 6.6 (6.3-8.2) g/dL Albumin 3.5 (3.5-5.0) g/dL Globulin 3.1 (1.7-4.1) g/dL Albumin/Globulin Ratio 1.1 (1.0-2.8) Procalcitonin < 0.05 (<0.5) ng/mL Influenza A & B (PCR) (Negative) Imaging Data Chest x-ray: Radiologist's impression: [address] [address] XRay Report Signed Patient: Chacorta Yanes LMR#: [id number] : 8Acct:[id number] Age/Sex: 68 / MDate of Service: 10/09/18 Loc: ED Accession Number: [id number] Procedure: XR chest 1V Ordering Provider: Kobe Morin D.O. PROCEDURE: XR CHEST 1V INDICATIONS: Shortness of breath TECHNIQUE: One view of the chest was acquired. COMPARISON: [facility], , XR CHEST 2V, 09/22/2018, 9:38. FINDINGS: Surgical changes and devices: None. Lungs and pleura: Chronic emphysematous changes in bilateral lung denney are seen. Scarring/atelectasis at bilateral lung bases are noted. Left apical scarring is also seen. No definite focal infiltrate. No pleural effusions or pneumothorax. Mediastinum: Mediastinal contours appear normal. Heart size is normal. Bones and chest wall: No suspicious bony lesions. Overlying soft tissues appear unremarkable. IMPRESSION: COPD and bibasilar scarring/atelectasis. No definite focal infiltrate. No pneumothorax. Dictated by: Wally Rajput M.D. on 10/09/2018 at 17:15 Approved by: Wally Rajput M.D. on 10/09/2018 at 17:16 ECG Data Attestation: I personally reviewed and interpreted this ECG as follows: Prior ECG tracings: not available for review Interpretation: Sinus rhythm Ventricular rate 87 Normal axis Normal intervals Normal QRS No ST T wave changes MDM Narrative Medical decision making narrative: Patient received steroids and nebulizer treatments here in the emergency department. He stated that he felt well. He was at his baseline 3 L by nasal cannula. He states that he felt well enough to go home. He is currently on a steroid taper. Will increase that steroids back up to 40 mg and taper him off that again. He is currently on antifungal medicine. He did have an elevated lactate however his white blood cell count was normal, chest x-ray was negative, afebrile, procalcitonin negative. He has no other signs of infection. He states that he felt well enough to go back to his nursing facility. He did not want to be admitted to the hospital. Will hold on antibiotics for now. Patient was given return precautions. He expressed understanding and agreement with plan. Discharge Plan Departure Patient Disposition: Home Clinical Impression: COPD (chronic obstructive pulmonary disease) Qualifiers: COPD type: unspecified COPD Qualified Code(s): J44.9 - Chronic obstructive pulmonary disease, unspecified Instructions: Chronic Obstructive Pulmonary Disease Activity Restrictions/Additional Instructions: Continue with all of your medications as directed except start the steroids as prescribed here in the emergency department. I do recommend that you have the nursing staff contact Dr. Lopez to discuss your follow up with Urology. Return to the emergency department for any new or worsening symptoms Prescriptions: New prednisone 20 mg tablet 40 mg PO DAILY Qty: 28 RF: 0 No Action guaifenesin [Mucinex] 600 MG tablet extended release 12hr 600 mg PO Q12H Qty: 0 RF: 0 multivitamin [Multiple Vitamins] 1 EACH tablet 1 tab PO DAILY Qty: 0 RF: 0 cholecalciferol (vitamin D3) [Vitamin D3] 1,000 UNIT tablet 1,000 unit PO DAILY Qty: 0 RF: 0 Spiriva with HandiHaler 18 MCG capsule, w/inhalation device 1 puff INH DAILY Qty: 0 RF: 0 atorvastatin [Lipitor] 20 mg tablet 20 mg PO BEDTIME Qty: 90 RF: 1 furosemide 40 mg tablet 40 mg PO DAILY PRN (Reason: SOB) Qty: 30 RF: 5 Spacer: Inhaler Spacer Device 1 ea Inhalation DIRECTED RF: 0 Advair Diskus 250-50 mcg/dose Blister With Device 1 inh INHALATION Q12H RF: 0 ipratropium-albuterol 0.5 mg-3 mg(2.5 mg base)/3 mL Solution For Nebulization 1 dose Inhalation Q6H PRN (Reason: Shortness Of Breath) RF: 0 albuterol sulfate 2.5 mg /3 mL (0.083 %) Solution For Nebulization 3 ml Inhalation TID RF: 0 aspirin 81 mg Tablet,Delayed Release (Dr/Ec) 81 mg PO DAILY RF: 0 tamsulosin [Flomax] 0.4 mg capsule 0.4 mg PO DAILY RF: 0 lorazepam 0.5 mg tablet 0.5 mg PO TID Qty: 60 RF: 2 magnesium hydroxide [Milk of Magnesia] 400 mg/5 mL Suspension 30 ml PO PRN PRN (Reason: no BM x 3 days) RF: 0 bisacodyl 10 mg Suppository 10 mg [place] PRN PRN (Reason: Constipation) RF: 0 metformin 1,000 mg Tablet 1,000 mg PO BID RF: 0 Fleet Enema 19-7 gram/118 mL Enema 1 ea [place] PRN PRN (Reason: Constipation) RF: 0 Proventil HFA 90 mcg/actuation Hfa Aerosol Inhaler 2 puff Inhalation Q4H PRN (Reason: Shortness Of Breath) RF: 0 bisacodyl 5 mg Tablet 5 - 10 mg PO PRN PRN (Reason: MILD TO SEVERE CONSTIPATION) RF: 0 itraconazole 200 mg Tablet 400 mg PO BID RF: 0 prednisone 10 mg tablet 10 mg PO DAILY RF: 0 pantoprazole 40 mg tablet,delayed release (DR/EC) 40 mg PO DAILY RF: 0 Referrals: Rubens Olivier MD [Primary Care Provider] -
[2018-10-09 16:53] VITALS: O2SAT 100
[2018-10-09] MEDS: ALBUTEROL/IPRATROPIUM 3 ML AMPUL INH (16:53)
[2018-10-09] MEDS: methylPREDNISolone 125 MG/2 ML VIAL IV (16:55)
[2018-10-09] MEDS: SODIUM CHLORIDE 0.9% 1,000 ML 125 ML IV (16:55)
[2018-10-09 17:14] VITALS: BP 138/55; PULSE 90; RESP 29; O2SAT 100
[2018-10-09 17:21] LABS: Fractionated Inspired Oxygen 0.32; HCO3 ABG 34 mmol/L (22-26); Oxygen Saturation ABG 99 % (95-100); PCO2 ABG 60.5 mmHg (35-45); PO2 ABG 149 mmHg (80-100); TCO2 ABG 36 mmol/L (21-31); pH ABG 7.36 (7.35-7.45)
[2018-10-09 17:36] LABS: Add Manual Diff / Slide Review NO; Basophils Absolute Auto 0 /uL (0-100); Eosinophils Absolute Auto 0 /uL (0-450); Eosinophils Percent Auto 0.3 % (2-4); Hematocrit 34.6 % (41-53); Hemoglobin 10.8 g/dL (13.5-17.5); Lymphocytes Absolute Auto 500 /uL (1100-4500); Lymphocytes Percent Auto 5.8 % (25-40); Mean Corpuscular HGB Conc 31.4 % (30-36); Mean Corpuscular Hemoglobin 28.9 PG (26-34); Mean Corpuscular Volume 92.1 fL (80-100); Monocytes Absolute Auto 500 /uL (0-900); Monocytes Percent Auto 5.9 % (3-14); Neutrophils Absolute Auto 7000 /uL (1500-7000); Platelet Count 289 X10^3/uL (150-400); Red Blood Cell Count 3.75 X10^6/uL (4.5-5.9); Red Cell Distribution Width 15.7 % (11.6-14.8); White Blood Cell Count 7.9 X10^3/uL (4.5-11.0)
[2018-10-09 17:51] LABS: B Type Natriuretic Peptide < 100 (<100); Lactate (Lactic Acid) 3.9 mmol/L (0.7-2.1)
[2018-10-09 17:52] LABS: Influenza A and B by PCR Rapid Negative (Negative)
[2018-10-09 17:52] LABS: Alanine Aminotransferase 18 IU/L (21-72); Albumin 3.5 g/dL (3.5-5.0); Albumin Globulin Ratio 1.1 (1.0-2.8); Alkaline Phosphatase 87 U/L (38-126); Aspartate Aminotransferase 11 IU/L (17-59); Bilirubin Total 0.3 mg/dL (0.2-1.3); Blood Urea Nitrogen 13 mg/dL (9-20); Calcium 9.6 mg/dL (8.4-10.2); Carbon Dioxide 34 mmol/L (22-32); Chloride 96 mmol/L (98-107); Estimated Glomerular Filt Rate > 60.0 mL/min (>60); Globulin 3.1 g/dL (1.7-4.1); Glucose 272 mg/dL (80-110); HEMOLYSIS < 15 (0-50); Potassium 4.5 mmol/L (3.4-5.1); Sodium 138 mmol/L (137-145); Total Protein 6.6 g/dL (6.3-8.2)
[2018-10-09 18:00] VITALS: BP 120/48; PULSE 85; O2SAT 98
[2018-10-09 18:03] LABS: Troponin I < 0.012 ng/mL (0.01-0.034)
[2018-10-09 18:15] LABS: Procalcitonin < 0.05 ng/mL (<0.5)
[2018-10-09 19:00] VITALS: BP 136/51; PULSE 96; RESP 25; O2SAT 99
[2018-10-09 21:28] LABS: Reflexed Lactate in 2 Hours Y
== END 2018-10-09 19:44 | disposition home or self-care (01) ==
PROVIDERS: Emergency Provider Emergency Medicine; Family Provider Student in an Organized Health Care Education/Training Program; PCP Student in an Organized Health Care Education/Training Program
DX: J44.9 Chronic obstructive pulmonary disease, unspecified (principal)
CPT/HCPCS: 36415; 36600; 71045; 80053; 82805; 83605; 83880; 84145; 84484; 85025; 87040; 87400; 93005; 94640; 96361; 96374; 99283; 99285; J2930

== ENCOUNTER 2018-10-14 10:15 | Inpatient (IN) | payer MEDICARE, OTHER, SELFPAY ==
[2018-07-05 11:59] VITALS: PULSE 84; RESP 24; O2SAT 98
[2018-09-16 18:23] VITALS: BMI 23.3
[2018-10-14] VITALS (15 sets, daily range): BP systolic 125–147; BP diastolic 50–97; PULSE 75–90; RESP 19–28; TEMP 36.2–37; O2SAT 95–99; BMI 23.3
--- NOTE | 2018-10-14 | DI.ECHO.S_ITS ---
[facility]---------+ [facility] +---------+ : : [address] [place] : : : : [phone] : : : : Phone: [phone] Echocardiogram Report + + :Name: AZAR ROSEN Study Date: 10/15/2018 Height: 67 in : :[facility] Weight: 150 lb : : Gender: Male BSA: 1.8 m2 : :: 1950 Age: 68 yrs BP: 134/63 mmHg: :Reason For Study: COPD : : Performed By: Allie Feliz : :Referring: JIMENA MACIEL : + + Interpretation Summary The left ventricle is hyperdynamic. The ejection fraction is estimated to be 70-75%. In comparison to previous study LV appears to be more hyperdynamic. The right ventricle is mildly dilated. The right ventricle is hyperdynamic. No significant valvular pathology. The IVC is of normal diameter and collapses greater than 50% with a sniff. This suggests a low right atrial pressure of 3 mm Hg. Procedure: A two-dimensional transthoracic echocardiogram with color flow and Doppler was performed. The study quality was technically adequate. Comparison is made with the echocardiogram of 02-16-18. The patient had a bundle branch block rhythm during the exam. Rhythm is not clear. Left Ventricle: The left ventricle is grossly normal size. The left ventricle is hyperdynamic. The ejection fraction is estimated to be 70-75%. There are no focal wall motion abnormalities. MV E/A: 1.0 Med Peak E' Maximilian: 7.1 cm/sec E/E' med: 10.3. Right Ventricle: The right ventricle is mildly dilated. The right ventricle is hyperdynamic. Atria: The left atrium is not well visualized. The left atrium grossly appears normal in size. Right atrial size is normal. The interatrial septum is intact with no evidence for an atrial septal defect. The thickening of interatrial septum suggests lipomatous hypertrophy. Mitral Valve: The mitral valve is grossly normal. There is no mitral regurgitation noted. Aortic Valve: The aortic valve opens well. The aortic valve is not well visualized. No aortic regurgitation is present. Tricuspid Valve: The tricuspid valve is normal in structure and function. The right ventricular systolic pressure is estimated to be at least 31 mmHg based on an estimated right atrial pressure of 3 mm Hg. There is trace tricuspid regurgitation. Pulmonic Valve: The pulmonic valve is not well visualized. Great Vessels: The aortic root is normal size. The ascending aorta could not be visualized. The IVC is of normal diameter and collapses greater than 50% with a sniff. This suggests a low right atrial pressure of 3 mm Hg. Pericardium/ Pleura There is no pericardial effusion. There is an anterior echo-free space consistent with a fat pad. There is no pleural effusion. MMode/2D Measurements & Calculations LVIDd: 4.2 cm Ao root diam: 3.8 cm LVIDs: 2.3 cm Aortic Jxn: 2.7 cm FS: 44.9 % IVSd: 0.87 cm LVPWd: 1.0 cm LV morillo. diameter/BSA (cm/m^2): 2.3 LV sys. diameter/BSA (cm/m^2): 1.3 LA dimension: 2.8 cm RA long axis: 3.7 cm RA area: 12.1 cm2 RA vol: 33.4 ml RA : 18.7 ml/m2 IVC diam: 1.6 cm RVDd major: 4.6 cm RVD1 (basal): 3.4 cm RVD2 (mid): 2.8 cm Doppler Measurements & Calculations Ao V2 max: 137.9 cm/sec MV E max maximilian: 72.3 cm/sec Ao V2 mean: 88.1 cm/sec MV A max maximilian: 70.2 cm/sec Ao max P.6 mmHg MV E/A: 1.0 Ao mean P.6 mmHg Med Peak E' Maximilian: 7.1 cm/sec Ao V2 VTI: 25.9 cm E/E' med: 10.3 Lat Peak E' Maximilian: 6.6 cm/sec E/E' lat: 10.9 E/e' average: 10.6 MV dec time: 0.25 sec MV P1/2t: 75.0 msec TR max maximilian: 262.5 cm/sec MV P1/2t max maximilian: 71.9 cm/sec TR max P.6 mmHg MVA(P1/2t): 2.9 cm2 Reading Physician:PM
--- NOTE | 2018-10-14 10:23 | DI.RAD.S_ITS ---
PROCEDURE: XR CHEST 1V INDICATIONS: dyspnea TECHNIQUE: One view of the chest was acquired. COMPARISON: [facility], CR, XR CHEST 2V, 09/22/2018, 9:38. [facility], CT, CT ANGIO CHEST PE PROTOCOL, 07/06/2018, 13:44. [facility], CR, XR CHEST 1V, 10/09/2018, 16:50. FINDINGS: Surgical changes and devices: None. Lungs and pleura: Severe emphysematous change. Developing density in the right upper midlung field likely represents superimposed focal pneumonia. Left basilar density likely represents scarring. Mediastinum: Mediastinal contours appear normal. Heart size is normal. Bones and chest wall: No suspicious bony lesions. Overlying soft tissues appear unremarkable. IMPRESSION: 1. Severe emphysema. 2. Probable developing focal pneumonia in the right upper lobe. Comment: Suggest progress films till clear. Dictated by: Sam Cummings M.D. on 10/14/2018 at 10:43 Approved by: Sam Cummings M.D. on 10/14/2018 at 10:45
[2018-10-14] MEDS: ALBUTEROL/IPRATROPIUM 3 ML AMPUL INH ×3 (10:25→22:26)
--- NOTE | 2018-10-14 10:25 | ED.SOB ---
HPI - SOB/Dyspnea General Chief Complaint: Shortness of Breath/Dyspnea Stated Complaint: SOB, COPD Time Seen by Provider: 10/14/18 10:17 Source: patient and EMS Mode of arrival: EMS Limitations: no limitations History of Present Illness Patient complains of shortness of breath that started yesterday. Patient states he has been gurgly and feels as though he may have pneumonia again. He states he has not had any fevers. He has a chronic cough, which is generally congested, but seems more congested than usual. Patient states he was given a nebulizer treatment yesterday and that this did seem to help, but that he was only given 1 other 1 [facility] the [facility] and none further. Medics state that despite the call for shortness of breath, the last breathing treatment given the rehab center had not been since 2:00 in the morning. Patient denies any chest pain. No nausea or vomiting. No abdominal pain. No diarrhea. No other complaints at this time. Related Data Home Medications Medication Instructions Recorded Confirmed cholecalciferol (vitamin D3) 1,000 unit PO DAILY #0 02/07/17 10/15/18 [Vitamin D3] guaifenesin [Mucinex] 600 mg PO Q12H #0 02/07/17 10/15/18 multivitamin [Multiple Vitamins] 1 tab PO DAILY #0 02/07/17 10/15/18 Spiriva with HandiHaler 1 puff INH DAILY #0 08/03/17 10/15/18 Advair Diskus 1 inh INHALATION Q12H 01/26/18 10/15/18 Spacer: Inhaler Spacer Device 1 ea INHALATION DIRECTED 01/26/18 10/15/18 albuterol sulfate 3 ml INHALATION TID 01/26/18 10/15/18 aspirin 81 mg PO DAILY 01/26/18 10/15/18 ipratropium-albuterol 1 dose INHALATION Q6H PRN 01/26/18 10/15/18 tamsulosin [Flomax] 0.4 mg PO DAILY 07/06/18 10/15/18 albuterol sulfate [Proventil HFA] 2 puff INHALATION Q4H PRN 10/09/18 10/15/18 bisacodyl 5 - 10 mg PO PRN PRN 10/09/18 10/15/18 bisacodyl 10 mg MI PRN PRN 10/09/18 10/15/18 itraconazole 400 mg PO BID 10/09/18 10/15/18 magnesium hydroxide [Milk of 30 ml PO PRN PRN 10/09/18 10/15/18 Magnesia] metformin 1,000 mg PO BID 10/09/18 10/15/18 pantoprazole 40 mg PO DAILY 10/09/18 10/15/18 prednisone 10 mg PO DAILY 10/09/18 10/15/18 sodium phosphates [Fleet Enema] 1 ea MI PRN PRN 10/09/18 10/15/18 Previous Rx's Medication Instructions Recorded atorvastatin 20 mg tablet 20 mg PO BEDTIME #90 tab 08/20/18 furosemide 40 mg tablet 40 mg PO DAILY PRN #30 tab 08/21/18 lorazepam 0.5 mg PO TID #60 tab 09/25/18 prednisone 40 mg PO DAILY #28 tab 10/09/18 Allergies Allergy/AdvReac Type Severity Reaction Status Date / Time felodipine [FELODIPINE] Allergy Intermediate SWELLING Verified 10/09/18 16:49 Review of Systems Constitutional Denies chills, Denies fever(s), Denies lethargy and Denies weakness Eyes Denies change in vision, Denies eye discharge, Denies irritation and Denies loss of vision ENT Ears, Nose, Mouth, and Throat: Denies change in voice, Denies neck pain and Denies sore throat Cardiovascular Denies chest pain, Denies irregular heart rhythm, Denies lightheadedness, Denies palpitations, Reports dyspnea, Reports dyspnea on exertion and Denies orthopnea Respiratory Denies cough, Reports dyspnea, Reports dyspnea on exertion and Denies wheezing Gastrointestinal Gastrointestinal: Denies abdominal pain, Denies change in bowel habits, Denies diarrhea, Denies nausea and Denies vomiting Genitourinary Denies hematuria, Denies flank pain, Denies urinary incontinence and Denies urinary urgency Musculoskeletal Denies neck pain Integumentary/Breasts Denies pruritus, Denies erythema, Denies rash and Denies wounds Neurologic Denies confusion, Denies loss of vision and Denies weakness Psychiatric Denies anxiety, Denies confusion, Denies depression, Denies homicidal ideation and Denies suicidal ideation Endocrine Denies palpitations Hematologic/Lymphatic Denies easy bruising Allergic/Immunologic Denies wheezing PFSH Medical History Anxiety (Chronic Unknown) Peripheral vascular disease (Chronic Unknown) Hx of small bowel obstruction (Resolved 03/2015) Hyperlipemia (Chronic Unknown) Nontuberculous mycobacterial infection (Chronic 2014) Coronary artery disease (Chronic Unknown) History of colon cancer (Resolved ~2010) BPH (benign prostatic hyperplasia) (Chronic Unknown) COPD (chronic obstructive pulmonary disease) (Chronic Unknown) Diabetes (Chronic Unknown) COPD (chronic obstructive pulmonary disease) (Inactive) Dependent edema (Inactive) Surgical History H/O cardiac catheterization (Resolved 2010) S/P small bowel resection (Resolved 03/2015) Hx of hernia repair (Resolved 2008) S/P colon resection (Resolved 2010) Hx of cataract surgery (Resolved 2014) Family History Mother Cancer Father Congestive heart failure Social History household members: spouse and family Smoking Status: Former smoker alcohol intake: current Family History Mother Cancer Father Congestive heart failure Social History household members: spouse and family Smoking Status: Former smoker alcohol intake: current Exam Initial Vital Signs Initial Vital Signs: Vital Signs Temperature 97.8 F 10/14/18 10:25 Pulse Rate 90 10/14/18 10:25 Respiratory Rate 24 10/14/18 10:25 Blood Pressure 145/97 H 10/14/18 10:25 Pulse Oximetry 97 10/14/18 10:25 Const General: cooperative and well developed Nutritional Appearance: well nourished Orientation: alert, awake, oriented x3 and not confused [facility] Head: normocephalic and atraumatic Ears: external ears normal and TM's normal bilaterally Nose: external nose normal and No nasal discharge Face and sinus: sinuses nontender, face symmetric, no sinus tenderness and No dry mucous membranes Mouth: oral mucosae normal and moist mucous membranes Teeth and gingiva: dentition normal Throat: tonsils normal and uvula midline Eyes General: appearance normal, both eyes and all related structures Eyelids: eyelids normal Conjunctivae: conjunctivae normal Sclera: sclerae normal Pupils: PERRL EOM: EOM intact bilaterally Neck Neck: normal visual inspection, trachea midline, No lymphadenopathy, No midline deformity and No JVD Lymphatic: No lymphedema Chest Chest: normal inspection of the chest Resp Effort & Inspection: able to speak in complete sentences (Intermittently; occasionally, patiently completes a phrase without interrup), labored, respiratory distress (Moderate), no use of accessory muscles and prolonged expiratory phase Auscultation: diminished lung sounds (Bilat), no rales, no rhonchi and wheezes Cardio Rate: regular rate Rhythm: regular rhythm Heart Sounds: no click, no gallops, no murmurs and no rubs Pulses: normal peripheral pulses GI Inspection: non-distended Palpation: soft, no hepatosplenomegaly, No guarding, No pulsatile mass and No tender Auscultation: normal bowel sounds Back/Spine/Pelvis Back: No CVA tenderness Cervical Spine: cervical ROM normal and No pain with cervical ROM Thoracic/Lumbar Spine: thoracic and lumbar spine normal to inspection Skin General: no rashes or lesions noted, No jaundice and No petechiae Neuro General: alert, oriented x3, gait normal and no focal motor deficits Speech: speech normal Extrem General: full ROM, no clubbing, cyanosis or edema, no pedal edema and no calf tenderness Psych Appearance: well kempt Mental Status: mental status grossly normal Attitude: cooperative Thought Content: normal and suicidality Judgment: judgment good Course Course Narrative: Patient was evaluated by myself immediately upon arrival in the emergency department. His oxygen saturation was actually quite good on his baseline of 4 L of oxygen per nasal cannula; however, patient's respirations were labored and his lung sounds were diminished, and as such, RT was immediately summoned to start a breathing treatment on the patient. Patient was found to be improved after a DuoNeb and albuterol, but stated he was not yet his back to his baseline and still felt significantly short of breath. Patient had received two nebulized albuterol treatments EN route, well. His chest x-ray was read by the radiologist as showing a right upper lobe infiltrate, and I felt the patient should be admitted to the hospital until improved. I spoke with Dr. Morgan, who agreed to admit the patient to her service. Remainder of patient's workup was unremarkable, other than a mildly elevated white blood cell count 14.5. Patient was without deterioration in the emergency department. Orders Ordered: ED Orders 10/18/18 06:12 Basic Metabolic Panel Routine Magnesium Routine Procalcitonin Routine 10/18/18 10:46 Consult to Occupational Therapy Evaluate & Treat Consult to Physical Therapy Evaluate & Treat Acetaminophen (Tylenol) 650 mg PO Q6HR PRN PRN Reason: As Needed for Fever/Mild Pain Al Hydrox/Mg Hydrox/Simethicone (Maalox Plus) 30 ml PO Q6HR PRN PRN Reason: Dyspepsia Albuterol (Ventolin) 2.5 mg INH [id number] PRN PRN Reason: Shortness Of Breath Albuterol/Ipratropium (Duoneb) 3 ml INH [id number] REPLACED BY [facility] Last Admin: 10/18/18 11:09 Dose: 3 ml Admin: 10/18/18 07:12 Dose: 3 ml Admin: 10/17/18 23:50 Dose: Not Given Admin: 10/17/18 18:23 Dose: Not Given Admin: 10/17/18 13:16 Dose: 3 ml Admin: 10/17/18 09:23 Dose: 3 ml Admin: 10/17/18 03:08 Dose: 3 ml Admin: 10/16/18 22:41 Dose: Not Given Admin: 10/16/18 17:48 Dose: 3 ml Admin: 10/16/18 13:43 Dose: 3 ml Admin: 10/16/18 09:50 Dose: 3 ml Admin: 10/16/18 04:11 Dose: 3 ml Admin: 10/15/18 23:16 Dose: Not Given Admin: 10/15/18 18:21 Dose: Not Given Admin: 10/15/18 14:55 Dose: 3 ml Admin: 10/15/18 09:12 Dose: 3 ml Admin: 10/15/18 04:32 Dose: 3 ml Admin: 10/14/18 22:26 Dose: 3 ml Admin: 10/14/18 17:56 Dose: 3 ml Admin: 10/14/18 17:20 Dose: Not Given Aspirin (Aspirin Ec) 81 mg PO DAILY REPLACED BY [facility] Last Admin: 10/18/18 08:16 Dose: 81 mg Admin: 10/17/18 08:24 Dose: 81 mg Admin: 10/16/18 08:27 Dose: 81 mg Admin: 10/15/18 08:40 Dose: 81 mg Atorvastatin Calcium (Lipitor) 20 mg PO BEDTIME REPLACED BY [facility] Last Admin: 10/17/18 20:51 Dose: 20 mg Admin: 10/16/18 20:09 Dose: 20 mg Admin: 10/15/18 20:51 Dose: 20 mg Admin: 10/14/18 22:48 Dose: 20 mg Calcium Carbonate (Tums) 1,000 mg PO Q4HR PRN PRN Reason: Dyspepsia Dextrose (D50w) 25 gm IV PRN PRN; Protocol PRN Reason: Hypoglycemia Docusate Sodium (Colace) 100 mg PO BID PRN PRN Reason: Constipation Guaifenesin (Mucinex) 1,200 mg PO Q12H REPLACED BY [facility] Last Admin: 10/18/18 08:16 Dose: 1,200 mg Admin: 10/17/18 20:51 Dose: 1,200 mg Admin: 10/17/18 08:24 Dose: 1,200 mg Admin: 10/16/18 20:09 Dose: 1,200 mg Admin: 10/16/18 08:28 Dose: 1,200 mg Admin: 10/15/18 20:51 Dose: 1,200 mg Admin: 10/15/18 08:40 Dose: 1,200 mg Heparin Sodium (Porcine) (Heparin) 5,000 unit SUBCUT BID REPLACED BY [facility] Last Admin: 10/18/18 11:41 Dose: 5,000 unit Admin: 10/17/18 20:51 Dose: 5,000 unit Admin: 10/17/18 08:25 Dose: 5,000 unit Admin: 10/16/18 20:29 Dose: 5,000 unit Admin: 10/16/18 08:28 Dose: 5,000 unit Admin: 10/15/18 20:50 Dose: 5,000 unit Admin: 10/15/18 08:41 Dose: 5,000 unit Admin: 10/14/18 22:49 Dose: 5,000 unit Tigecycline 50 mg/ Sodium (Chloride) 100 mls @ 200 mls/hr IV Q12H REPLACED BY [facility] Last Admin: 10/18/18 11:40 Dose: 200 mls/hr Infusion: 10/18/18 01:08 Dose: 0 mls/hr Admin: 10/18/18 00:13 Dose: 200 mls/hr Infusion: 10/17/18 13:23 Dose: 0 mls/hr Admin: 10/17/18 12:05 Dose: 200 mls/hr Infusion: 10/17/18 01:17 Dose: 0 mls/hr Admin: 10/17/18 00:10 Dose: 200 mls/hr Sodium Chloride (Normal Saline 0.9%) 250 mls @ 21 mls/hr IV Q24H PRN PRN Reason: Flush Last Admin: 10/18/18 00:14 Dose: 21 mls/hr Insulin Aspart (Novolog Flexpen) 0 unit SUBCUT ACHS DIAZ; Protocol Last Admin: 10/18/18 08:14 Dose: Not Given Admin: 10/17/18 20:50 Dose: 3 unit Admin: 10/17/18 17:13 Dose: 5 unit Admin: 10/17/18 13:21 Dose: 1 unit Admin: 10/17/18 08:25 Dose: 1 unit Admin: 10/16/18 20:11 Dose: 5 unit Admin: 10/16/18 16:46 Dose: 7 unit Admin: 10/16/18 12:41 Dose: 7 unit Admin: 10/16/18 08:23 Dose: 7 unit Admin: 10/15/18 20:51 Dose: 3 unit Admin: 10/15/18 17:04 Dose: 3 unit Admin: 10/15/18 14:18 Dose: 7 unit Admin: 10/15/18 12:15 Dose: 8 unit Admin: 10/15/18 08:42 Dose: 5 unit Admin: 10/14/18 23:51 Dose: 5 unit Insulin Glargine (Lantus Solostar (Pen)) 20 unit SUBCUT BEDTIME DIAZ Last Admin: 10/17/18 20:49 Dose: 20 unit Admin: 10/16/18 20:12 Dose: 20 unit Lorazepam (Ativan) 0.5 mg IV Q2HR PRN PRN Reason: Anxiety Last Admin: 10/17/18 03:31 Dose: 0.5 mg Admin: 10/16/18 16:39 Dose: 0.5 mg Admin: 10/16/18 04:32 Dose: 0.5 mg Admin: 10/15/18 15:44 Dose: 0.5 mg Admin: 10/15/18 08:59 Dose: 0.5 mg Lorazepam (Ativan) 1 mg PO Q8H PRN PRN Reason: Anxiety Last Admin: 10/18/18 11:38 Dose: 1 mg Admin: 10/18/18 05:38 Dose: 1 mg Admin: 10/17/18 08:46 Dose: 1 mg Morphine Sulfate (Morphine) 2 mg IV Q4HR PRN PRN Reason: Dyspnea Last Admin: 10/15/18 22:18 Dose: 2 mg Admin: 10/14/18 16:31 Dose: 2 mg Itraconazole 200 Mg 200 mg PO BIDWM REPLACED BY [facility] Last Admin: 10/18/18 08:17 Dose: 200 mg Admin: 10/17/18 17:12 Dose: 200 mg Admin: 10/17/18 08:25 Dose: 200 mg Admin: 10/16/18 16:47 Dose: 200 mg Admin: 10/16/18 08:34 Dose: 200 mg Admin: 10/15/18 17:05 Dose: 200 mg Admin: 10/15/18 08:40 Dose: 200 mg Admin: 10/14/18 17:28 Dose: 200 mg Ondansetron HCl (Zofran) 4 mg IV Q8HR PRN PRN Reason: Nausea And Vomiting Pantoprazole Sodium (Protonix) 40 mg PO DAILY REPLACED BY [facility] Last Admin: 10/18/18 08:17 Dose: 40 mg Admin: 10/17/18 08:25 Dose: 40 mg Admin: 10/16/18 08:27 Dose: 40 mg Admin: 10/15/18 08:41 Dose: 40 mg Prednisone (Deltasone) 40 mg PO DAILY REPLACED BY [facility] Last Admin: 10/18/18 08:16 Dose: 40 mg Admin: 10/17/18 08:24 Dose: 40 mg Admin: 10/16/18 08:27 Dose: 40 mg Admin: 10/15/18 12:14 Dose: 40 mg Fluticasone/Salmeterol (Advair 250/50 Diskus) 1 puff INH RTBID REPLACED BY [facility] Last Admin: 10/18/18 07:14 Dose: 1 puff Admin: 10/17/18 20:51 Dose: 1 puff Admin: 10/17/18 09:22 Dose: 1 puff Admin: 10/16/18 17:49 Dose: 1 puff Admin: 10/16/18 04:12 Dose: 1 puff Admin: 10/15/18 18:22 Dose: Not Given Admin: 10/15/18 09:13 Dose: 1 puff Admin: 10/14/18 17:57 Dose: 1 puff Sennosides (Senna) 17.2 mg PO BEDTIME PRN PRN Reason: Constipation Sodium Chloride (Normal Saline 0.9% Flush) 10 ml IV PRN PRN PRN Reason: Flush Last Admin: 10/18/18 00:13 Dose: 10 ml Admin: 10/17/18 03:31 Dose: 10 ml Admin: 10/17/18 00:27 Dose: 10 ml Sodium Chloride (Normal Saline 0.9% Flush) 10 ml IV BID REPLACED BY [facility] Last Admin: 10/18/18 08:18 Dose: 10 ml Admin: 10/17/18 20:53 Dose: 10 ml Admin: 10/17/18 13:22 Dose: 10 ml Admin: 10/16/18 20:20 Dose: 10 ml Admin: 10/16/18 12:40 Dose: 10 ml Admin: 10/15/18 20:52 Dose: 10 ml Admin: 10/15/18 08:59 Dose: 10 ml Tamsulosin HCl (Flomax) 0.4 mg PO DAILY REPLACED BY [facility] Last Admin: 10/18/18 08:17 Dose: 0.4 mg Admin: 10/17/18 08:24 Dose: 0.4 mg Admin: 10/16/18 08:27 Dose: 0.4 mg Admin: 10/15/18 08:41 Dose: 0.4 mg Discontinued Medications Albuterol (Ventolin) 2.5 mg INH NOW ONE Stop: 10/14/18 10:39 Last Admin: 10/14/18 10:33 Dose: 2.5 mg Albuterol (Ventolin) 2.5 mg INH NOW ONE Stop: 10/14/18 10:55 Last Admin: 10/14/18 10:40 Dose: 2.5 mg Albuterol/Ipratropium (Duoneb) 3 ml INH NOW ONE Stop: 10/14/18 10:33 Last Admin: 10/14/18 10:25 Dose: 3 ml Guaifenesin (Mucinex) 1,200 mg PO Q12H REPLACED BY [facility] Last Admin: 10/14/18 23:50 Dose: 1,200 mg Admin: 10/14/18 16:06 Dose: 1,200 mg Sodium Chloride (Normal Saline 0.9%) 1,000 mls @ 1,000 mls/hr IV BOLUS ONE Stop: 10/14/18 11:22 Last Infusion: 10/14/18 12:18 Dose: 0 mls/hr Admin: 10/14/18 10:56 Dose: 1,000 mls/hr Dexamethasone 20 mg/ Sodium (Chloride) 55 mls @ 220 mls/hr IV NOW ONE Stop: 10/14/18 10:33 Last Infusion: 10/14/18 11:16 Dose: 0 mls/hr Admin: 10/14/18 10:56 Dose: 220 mls/hr Levofloxacin (Levaquin) 500 mg in 100 mls @ 100 mls/hr IV NOW ONE Stop: 10/14/18 13:11 Last Admin: 10/14/18 12:22 Dose: 100 mls/hr Sodium Chloride (Normal Saline 0.9%) 1,000 mls @ 125 mls/hr IV CONT DIAZ Last Admin: 10/14/18 14:59 Dose: Not Given Levofloxacin (Levaquin) 750 mg in 150 mls @ 100 mls/hr IV 1200 DIAZ Last Infusion: 10/15/18 17:27 Dose: 0 mls/hr Admin: 10/15/18 13:04 Dose: 100 mls/hr Piperacillin/Tazobactam/Dextrose (Zosyn) 3.375 gm in 50 mls @ 100 mls/hr IV Q8H DIAZ Last Admin: 10/14/18 18:18 Dose: Not Given Piperacillin/Tazobactam/Dextrose (Zosyn) 3.375 gm in 50 mls @ 100 mls/hr IV Q6HR REPLACED BY [facility] Last Infusion: 10/16/18 08:28 Dose: 0 mls/hr Admin: 10/16/18 06:06 Dose: 100 mls/hr Infusion: 10/16/18 01:30 Dose: 0 mls/hr Admin: 10/16/18 00:05 Dose: 100 mls/hr Infusion: 10/15/18 21:08 Dose: 0 mls/hr Admin: 10/15/18 17:30 Dose: 100 mls/hr Infusion: 10/15/18 13:04 Dose: 0 mls/hr Admin: 10/15/18 12:14 Dose: 100 mls/hr Infusion: 10/15/18 08:55 Dose: 0 mls/hr Admin: 10/15/18 06:06 Dose: 100 mls/hr Infusion: 10/15/18 01:35 Dose: 0 mls/hr Admin: 10/14/18 23:50 Dose: 100 mls/hr Infusion: 10/14/18 19:03 Dose: 0 mls/hr Admin: 10/14/18 17:33 Dose: 100 mls/hr Tigecycline 100 mg/ Sodium (Chloride) 100 mls @ 100 mls/hr IV NOW ONE Stop: 10/16/18 12:01 Last Infusion: 10/16/18 14:14 Dose: 0 mls/hr Admin: 10/16/18 12:39 Dose: 100 mls/hr Lorazepam (Ativan) 0.5 mg PO TID REPLACED BY [facility] Last Admin: 10/14/18 16:04 Dose: 0.5 mg Methylprednisolone (Solu-Medrol 125 Mg Vial) 60 mg IV Q8H REPLACED BY [facility] Last Admin: 10/15/18 08:41 Dose: 60 mg Admin: 10/15/18 01:37 Dose: 60 mg Admin: 10/14/18 17:22 Dose: 60 mg Prednisone (Deltasone) 40 mg PO DAILY REPLACED BY [facility] Fluticasone/Salmeterol (Advair 250/50 Diskus) 1 puff INH Q12H REPLACED BY [facility] Last Admin: 10/14/18 17:20 Dose: Not Given Vital Signs - 8 hr 10/18/18 07:14 10/18/18 07:28 10/18/18 11:10 Temperature 97.4 F L Pulse Rate 74 76 81 Respiratory Rate 24 24 22 Blood Pressure 139/64 Pulse Oximetry 99 100 98 MDM - SOB/Dyspnea Medical Records Attestation: I reviewed the patient's medical records. Lab Data Attestation: I reviewed the patient's lab results. Result diagrams: 10/16/18 04:44 10/18/18 06:12 Lab Results 10/14/18 10/14/18 10/14/18 Range/Units 10:40 10:40 10:40 WBC 18.5 H (4.5-11.0) X10^3/uL RBC 4.18 L (4.5-5.9) X10^6/uL Hgb 12.1 L (13.5-17.5) g/dL Hct 38.1 L (41-53) % MCV 91.1 (80-100) fL MCH 28.8 (26-34) PG MCHC 31.7 (30-36) % RDW 15.6 H (11.6-14.8) % Plt Count 419 H (150-400) X10^3/uL Neut % (Auto) Not Reportable Lymph % (Auto) Not Reportable [place] % (Auto) Not Reportable Eos % (Auto) Not Reportable Baso % (Auto) Not Reportable Lymph # (Auto) Not Reportable [place] # (Auto) Not Reportable Baso # (Auto) Not Reportable Total Counted 100 Seg Neutrophils % 86.0 H (38-70) % Band Neutrophils % 8.0 H (3-7) % Lymphocytes % (Manual) 1.0 L (25-45) % Monocytes % (Manual) 3.0 (2-11) % Metamyelocytes % 2.0 H (-0) % Neutrophils # (Manual) 83196 H (3234-2095) /uL RBC Morphology Normal morphology Hypochromasia ABG pH (7.35-7.45) ABG pCO2 (35-45) mmHg ABG pO2 (80-100) mmHg ABG HCO3 (22-26) mmol/L ABG Total CO2 (21-31) mmol/L ABG O2 Saturation (95-100) % ABG Base Excess (-2-2) mmol/L FiO2 Sodium 138 (137-145) mmol/L Potassium 4.6 (3.4-5.1) mmol/L Chloride 93 L (98-107) mmol/L Carbon Dioxide 40 H* (22-32) mmol/L BUN 19 (9-20) mg/dL Creatinine 0.40 L (0.66-1.25) mg/dL Estimated GFR > 60.0 (>60) mL/min BUN/Creatinine Ratio 47.5 H (6-22) Glucose 202 H (80-110) mg/dL Lactate (0.7-2.1) mmol/L Calcium 9.8 (8.4-10.2) mg/dL Magnesium (1.6-2.3) mg/dL Total Bilirubin 0.3 (0.2-1.3) mg/dL AST 15 L (17-59) IU/L ALT 21 (21-72) IU/L Alkaline Phosphatase 91 (38-126) U/L Total Creatine Kinase < 20 L (55-170) U/L CK-MB (CK-2) TNP CK-MB (CK-2) Rel Index TNP Troponin I < 0.012 (0.01-0.034) ng/mL B-Natriuretic Peptide < 100 (<100) Total Protein 6.9 (6.3-8.2) g/dL Albumin 3.6 (3.5-5.0) g/dL Globulin 3.3 (1.7-4.1) g/dL Albumin/Globulin Ratio 1.1 (1.0-2.8) Procalcitonin 0.08 (<0.5) ng/mL Urine Color Urine Appearance Urine pH (4.5-8.0) Ur Specific [place] (1.000-1.035) Urine Protein (Negative) Urine Glucose (UA) (Negative) g/dL Urine Ketones (NEGATIVE) Urine Occult Blood (Negative) Urine Nitrate (Negative) Urine Bilirubin (NEGATIVE) Urine Urobilinogen (0.2) E.U./dL Ur Leukocyte Esterase (NEGATIVE) Urine RBC (0-5/HPF) Urine WBC (0-5/HPF) Ur Squamous Epith Cells Calcium Oxalate Crystal (None) Amorphous Sediment Urine Bacteria (None) Urine Mucus (Negative) Ur Culture Indicated? Nasal Screen MRSA (PCR) (Negative) Chlamy pneumoniae PCR (Not Detect) Adenovirus (PCR) (Not Detect) B.parapertussis DNA PCR (Not Detect) Coronavirus OC43 (PCR) (Not Detect) Coronavirus HKU1 (PCR) (Not Detect) Coronavirus 229E (PCR) (Not Detect) Coronavirus NL63 (PCR) (Not Detect) Human Metapneumovir PCR (Not Detect) Influenza Type A (PCR) (Not Detect) Influenza Type B (PCR) (Not Detect) M. pneumoniae (PCR) (Not Detect) Parainfluenza 1 (PCR) (Not Detect) Parainfluenza 2 (PCR) (Not Detect) Parainfluenza 3 (PCR) (Not Detect) Parainfluenza 4 (PCR) (Not Detect) RSV (PCR) (Not Detect) Entero/Rhino (PCR) (Not Detect) Anti-Streptolysin O Ab (< 200) IU/mL 10/14/18 10/14/18 10/14/18 Range/Units 16:25 17:01 17:25 WBC (4.5-11.0) X10^3/uL RBC (4.5-5.9) X10^6/uL Hgb (13.5-17.5) g/dL Hct (41-53) % MCV (80-100) fL MCH (26-34) PG MCHC (30-36) % RDW (11.6-14.8) % Plt Count (150-400) X10^3/uL Neut % (Auto) Lymph % (Auto) [place] % (Auto) Eos % (Auto) Baso % (Auto) Lymph # (Auto) [place] # (Auto) Baso # (Auto) Total Counted Seg Neutrophils % (38-70) % Band Neutrophils % (3-7) % Lymphocytes % (Manual) (25-45) % Monocytes % (Manual) (2-11) % Metamyelocytes % (-0) % Neutrophils # (Manual) (7756-7301) /uL RBC Morphology Hypochromasia ABG pH 7.44 (7.35-7.45) ABG pCO2 49.5 H (35-45) mmHg ABG pO2 90 (80-100) mmHg ABG HCO3 33 H (22-26) mmol/L ABG Total CO2 35 H (21-31) mmol/L ABG O2 Saturation 97 (95-100) % ABG Base Excess 9.0 H (-2-2) mmol/L FiO2 0.32 Sodium (137-145) mmol/L Potassium (3.4-5.1) mmol/L Chloride (98-107) mmol/L Carbon Dioxide (22-32) mmol/L BUN (9-20) mg/dL Creatinine (0.66-1.25) mg/dL Estimated GFR (>60) mL/min BUN/Creatinine Ratio (6-22) Glucose (80-110) mg/dL Lactate (0.7-2.1) mmol/L Calcium (8.4-10.2) mg/dL Magnesium (1.6-2.3) mg/dL Total Bilirubin (0.2-1.3) mg/dL AST (17-59) IU/L ALT (21-72) IU/L Alkaline Phosphatase (38-126) U/L Total Creatine Kinase (55-170) U/L CK-MB (CK-2) CK-MB (CK-2) Rel Index Troponin I (0.01-0.034) ng/mL B-Natriuretic Peptide (<100) Total Protein (6.3-8.2) g/dL Albumin (3.5-5.0) g/dL Globulin (1.7-4.1) g/dL Albumin/Globulin Ratio (1.0-2.8) Procalcitonin (<0.5) ng/mL Urine Color Urine Appearance Urine pH (4.5-8.0) Ur Specific [place] (1.000-1.035) Urine Protein (Negative) Urine Glucose (UA) (Negative) g/dL Urine Ketones (NEGATIVE) Urine Occult Blood (Negative) Urine Nitrate (Negative) Urine Bilirubin (NEGATIVE) Urine Urobilinogen (0.2) E.U./dL Ur Leukocyte Esterase (NEGATIVE) Urine RBC (0-5/HPF) Urine WBC (0-5/HPF) Ur Squamous Epith Cells Calcium Oxalate Crystal (None) Amorphous Sediment Urine Bacteria (None) Urine Mucus (Negative) Ur Culture Indicated? Nasal Screen MRSA (PCR) Negative for mrsa (Negative) Chlamy pneumoniae PCR (Not Detect) Adenovirus (PCR) (Not Detect) B.parapertussis DNA PCR (Not Detect) Coronavirus OC43 (PCR) (Not Detect) Coronavirus HKU1 (PCR) (Not Detect) Coronavirus 229E (PCR) (Not Detect) Coronavirus NL63 (PCR) (Not Detect) Human Metapneumovir PCR (Not Detect) Influenza Type A (PCR) (Not Detect) Influenza Type B (PCR) (Not Detect) M. pneumoniae (PCR) (Not Detect) Parainfluenza 1 (PCR) (Not Detect) Parainfluenza 2 (PCR) (Not Detect) Parainfluenza 3 (PCR) (Not Detect) Parainfluenza 4 (PCR) (Not Detect) RSV (PCR) (Not Detect) Entero/Rhino (PCR) (Not Detect) Anti-Streptolysin O Ab < 50 (< 200) IU/mL 10/14/18 10/14/18 10/14/18 Range/Units 17:25 18:30 18:30 WBC (4.5-11.0) X10^3/uL RBC (4.5-5.9) X10^6/uL Hgb (13.5-17.5) g/dL Hct (41-53) % MCV (80-100) fL MCH (26-34) PG MCHC (30-36) % RDW (11.6-14.8) % Plt Count (150-400) X10^3/uL Neut % (Auto) Lymph % (Auto) [place] % (Auto) Eos % (Auto) Baso % (Auto) Lymph # (Auto) [place] # (Auto) Baso # (Auto) Total Counted Seg Neutrophils % (38-70) % Band Neutrophils % (3-7) % Lymphocytes % (Manual) (25-45) % Monocytes % (Manual) (2-11) % Metamyelocytes % (-0) % Neutrophils # (Manual) (0138-8927) /uL RBC Morphology Hypochromasia ABG pH (7.35-7.45) ABG pCO2 (35-45) mmHg ABG pO2 (80-100) mmHg ABG HCO3 (22-26) mmol/L ABG Total CO2 (21-31) mmol/L ABG O2 Saturation (95-100) % ABG Base Excess (-2-2) mmol/L FiO2 Sodium (137-145) mmol/L Potassium (3.4-5.1) mmol/L Chloride (98-107) mmol/L Carbon Dioxide (22-32) mmol/L BUN (9-20) mg/dL Creatinine (0.66-1.25) mg/dL Estimated GFR (>60) mL/min BUN/Creatinine Ratio (6-22) Glucose (80-110) mg/dL Lactate 3.1 H (0.7-2.1) mmol/L Calcium (8.4-10.2) mg/dL Magnesium (1.6-2.3) mg/dL Total Bilirubin (0.2-1.3) mg/dL AST (17-59) IU/L ALT (21-72) IU/L Alkaline Phosphatase (38-126) U/L Total Creatine Kinase (55-170) U/L CK-MB (CK-2) CK-MB (CK-2) Rel Index Troponin I (0.01-0.034) ng/mL B-Natriuretic Peptide (<100) Total Protein (6.3-8.2) g/dL Albumin (3.5-5.0) g/dL Globulin (1.7-4.1) g/dL Albumin/Globulin Ratio (1.0-2.8) Procalcitonin (<0.5) ng/mL Urine Color Yellow Urine Appearance Slightly cloudy Urine pH 6.5 (4.5-8.0) Ur Specific [place] 1.010 (1.000-1.035) Urine Protein Negative (Negative) Urine Glucose (UA) 2+ H (Negative) g/dL Urine Ketones Negative (NEGATIVE) Urine Occult Blood 2+ H (Negative) Urine Nitrate Negative (Negative) Urine Bilirubin Negative (NEGATIVE) Urine Urobilinogen 0.2 (0.2) E.U./dL Ur Leukocyte Esterase Trace H (NEGATIVE) Urine RBC 10-30/hpf H (0-5/HPF) Urine WBC 5-10/hpf H (0-5/HPF) Ur Squamous Epith Cells 1-5 /hpf Calcium Oxalate Crystal Moderate H (None) Amorphous Sediment 1+ Urine Bacteria Moderate (10-30) H (None) Urine Mucus 1+ H (Negative) Ur Culture Indicated? Specimen cultured Nasal Screen MRSA (PCR) (Negative) Chlamy pneumoniae PCR Not detected (Not Detect) Adenovirus (PCR) Not detected (Not Detect) B.parapertussis DNA PCR Not detected (Not Detect) Coronavirus OC43 (PCR) Not detected (Not Detect) Coronavirus HKU1 (PCR) Not detected (Not Detect) Coronavirus 229E (PCR) Not detected (Not Detect) Coronavirus NL63 (PCR) Not detected (Not Detect) Human Metapneumovir PCR Not detected (Not Detect) Influenza Type A (PCR) Not detected (Not Detect) Influenza Type B (PCR) Not detected (Not Detect) M. pneumoniae (PCR) Not detected (Not Detect) Parainfluenza 1 (PCR) Not detected (Not Detect) Parainfluenza 2 (PCR) Not detected (Not Detect) Parainfluenza 3 (PCR) Not detected (Not Detect) Parainfluenza 4 (PCR) Not detected (Not Detect) RSV (PCR) Not detected (Not Detect) Entero/Rhino (PCR) Not detected (Not Detect) Anti-Streptolysin O Ab (< 200) IU/mL 10/14/18 10/15/18 10/15/18 Range/Units 20:22 04:50 04:50 WBC 11.3 H (4.5-11.0) X10^3/uL RBC 3.81 L (4.5-5.9) X10^6/uL Hgb 11.0 L (13.5-17.5) g/dL Hct 34.5 L (41-53) % MCV 90.6 (80-100) fL MCH 28.8 (26-34) PG MCHC 31.7 (30-36) % RDW 15.6 H (11.6-14.8) % Plt Count 393 (150-400) X10^3/uL Neut % (Auto) Not Reportable Lymph % (Auto) Not Reportable [place] % (Auto) Not Reportable Eos % (Auto) Not Reportable Baso % (Auto) Not Reportable Lymph # (Auto) Not Reportable [place] # (Auto) Not Reportable Baso # (Auto) Not Reportable Total Counted 100 Seg Neutrophils % 90.0 H (38-70) % Band Neutrophils % 4.0 (3-7) % Lymphocytes % (Manual) 1.0 L (25-45) % Monocytes % (Manual) 3.0 (2-11) % Metamyelocytes % 2.0 H (-0) % Neutrophils # (Manual) 54292 H (9467-4932) /uL RBC Morphology See below Hypochromasia 1+ H ABG pH (7.35-7.45) ABG pCO2 (35-45) mmHg ABG pO2 (80-100) mmHg ABG HCO3 (22-26) mmol/L ABG Total CO2 (21-31) mmol/L ABG O2 Saturation (95-100) % ABG Base Excess (-2-2) mmol/L FiO2 Sodium 139 (137-145) mmol/L Potassium 5.0 (3.4-5.1) mmol/L Chloride 95 L (98-107) mmol/L Carbon Dioxide 38 H (22-32) mmol/L BUN 20 (9-20) mg/dL Creatinine 0.50 L (0.66-1.25) mg/dL Estimated GFR > 60.0 (>60) mL/min BUN/Creatinine Ratio 40.0 H (6-22) Glucose 209 H (80-110) mg/dL Lactate 4.6 H (0.7-2.1) mmol/L Calcium 9.9 (8.4-10.2) mg/dL Magnesium (1.6-2.3) mg/dL Total Bilirubin (0.2-1.3) mg/dL AST (17-59) IU/L ALT (21-72) IU/L Alkaline Phosphatase (38-126) U/L Total Creatine Kinase (55-170) U/L CK-MB (CK-2) CK-MB (CK-2) Rel Index Troponin I < 0.012 (0.01-0.034) ng/mL B-Natriuretic Peptide < 100 (<100) Total Protein (6.3-8.2) g/dL Albumin (3.5-5.0) g/dL Globulin (1.7-4.1) g/dL Albumin/Globulin Ratio (1.0-2.8) Procalcitonin (<0.5) ng/mL Urine Color Urine Appearance Urine pH (4.5-8.0) Ur Specific [place] (1.000-1.035) Urine Protein (Negative) Urine Glucose (UA) (Negative) g/dL Urine Ketones (NEGATIVE) Urine Occult Blood (Negative) Urine Nitrate (Negative) Urine Bilirubin (NEGATIVE) Urine Urobilinogen (0.2) E.U./dL Ur Leukocyte Esterase (NEGATIVE) Urine RBC (0-5/HPF) Urine WBC (0-5/HPF) Ur Squamous Epith Cells Calcium Oxalate Crystal (None) Amorphous Sediment Urine Bacteria (None) Urine Mucus (Negative) Ur Culture Indicated? Nasal Screen MRSA (PCR) (Negative) Chlamy pneumoniae PCR (Not Detect) Adenovirus (PCR) (Not Detect) B.parapertussis DNA PCR (Not Detect) Coronavirus OC43 (PCR) (Not Detect) Coronavirus HKU1 (PCR) (Not Detect) Coronavirus 229E (PCR) (Not Detect) Coronavirus NL63 (PCR) (Not Detect) Human Metapneumovir PCR (Not Detect) Influenza Type A (PCR) (Not Detect) Influenza Type B (PCR) (Not Detect) M. pneumoniae (PCR) (Not Detect) Parainfluenza 1 (PCR) (Not Detect) Parainfluenza 2 (PCR) (Not Detect) Parainfluenza 3 (PCR) (Not Detect) Parainfluenza 4 (PCR) (Not Detect) RSV (PCR) (Not Detect) Entero/Rhino (PCR) (Not Detect) Anti-Streptolysin O Ab (< 200) IU/mL 10/15/18 10/15/18 10/15/18 Range/Units 04:50 04:50 09:30 WBC (4.5-11.0) X10^3/uL RBC (4.5-5.9) X10^6/uL Hgb (13.5-17.5) g/dL Hct (41-53) % MCV (80-100) fL MCH (26-34) PG MCHC (30-36) % RDW (11.6-14.8) % Plt Count (150-400) X10^3/uL Neut % (Auto) Lymph % (Auto) [place] % (Auto) Eos % (Auto) Baso % (Auto) Lymph # (Auto) [place] # (Auto) Baso # (Auto) Total Counted Seg Neutrophils % (38-70) % Band Neutrophils % (3-7) % Lymphocytes % (Manual) (25-45) % Monocytes % (Manual) (2-11) % Metamyelocytes % (-0) % Neutrophils # (Manual) (5816-1138) /uL RBC Morphology Hypochromasia ABG pH (7.35-7.45) ABG pCO2 (35-45) mmHg ABG pO2 (80-100) mmHg ABG HCO3 (22-26) mmol/L ABG Total CO2 (21-31) mmol/L ABG O2 Saturation (95-100) % ABG Base Excess (-2-2) mmol/L FiO2 Sodium (137-145) mmol/L Potassium (3.4-5.1) mmol/L Chloride (98-107) mmol/L Carbon Dioxide (22-32) mmol/L BUN (9-20) mg/dL Creatinine (0.66-1.25) mg/dL Estimated GFR (>60) mL/min BUN/Creatinine Ratio (6-22) Glucose (80-110) mg/dL Lactate 3.1 H 4.6 H (0.7-2.1) mmol/L Calcium (8.4-10.2) mg/dL Magnesium (1.6-2.3) mg/dL Total Bilirubin (0.2-1.3) mg/dL AST (17-59) IU/L ALT (21-72) IU/L Alkaline Phosphatase (38-126) U/L Total Creatine Kinase (55-170) U/L CK-MB (CK-2) CK-MB (CK-2) Rel Index Troponin I (0.01-0.034) ng/mL B-Natriuretic Peptide (<100) Total Protein (6.3-8.2) g/dL Albumin (3.5-5.0) g/dL Globulin (1.7-4.1) g/dL Albumin/Globulin Ratio (1.0-2.8) Procalcitonin < 0.05 (<0.5) ng/mL Urine Color Urine Appearance Urine pH (4.5-8.0) Ur Specific [place] (1.000-1.035) Urine Protein (Negative) Urine Glucose (UA) (Negative) g/dL Urine Ketones (NEGATIVE) Urine Occult Blood (Negative) Urine Nitrate (Negative) Urine Bilirubin (NEGATIVE) Urine Urobilinogen (0.2) E.U./dL Ur Leukocyte Esterase (NEGATIVE) Urine RBC (0-5/HPF) Urine WBC (0-5/HPF) Ur Squamous Epith Cells Calcium Oxalate Crystal (None) Amorphous Sediment Urine Bacteria (None) Urine Mucus (Negative) Ur Culture Indicated? Nasal Screen MRSA (PCR) (Negative) Chlamy pneumoniae PCR (Not Detect) Adenovirus (PCR) (Not Detect) B.parapertussis DNA PCR (Not Detect) Coronavirus OC43 (PCR) (Not Detect) Coronavirus HKU1 (PCR) (Not Detect) Coronavirus 229E (PCR) (Not Detect) Coronavirus NL63 (PCR) (Not Detect) Human Metapneumovir PCR (Not Detect) Influenza Type A (PCR) (Not Detect) Influenza Type B (PCR) (Not Detect) M. pneumoniae (PCR) (Not Detect) Parainfluenza 1 (PCR) (Not Detect) Parainfluenza 2 (PCR) (Not Detect) Parainfluenza 3 (PCR) (Not Detect) Parainfluenza 4 (PCR) (Not Detect) RSV (PCR) (Not Detect) Entero/Rhino (PCR) (Not Detect) Anti-Streptolysin O Ab (< 200) IU/mL 10/16/18 10/16/18 10/18/18 Range/Units 04:44 04:44 06:12 WBC 14.5 H (4.5-11.0) X10^3/uL RBC 3.89 L (4.5-5.9) X10^6/uL Hgb 11.1 L (13.5-17.5) g/dL Hct 34.8 L (41-53) % MCV 89.6 (80-100) fL MCH 28.5 (26-34) PG MCHC 31.8 (30-36) % RDW 15.9 H (11.6-14.8) % Plt Count 454 H (150-400) X10^3/uL Neut % (Auto) Not Reportable Lymph % (Auto) Not Reportable [place] % (Auto) Not Reportable Eos % (Auto) Not Reportable Baso % (Auto) Not Reportable Lymph # (Auto) Not Reportable [place] # (Auto) Not Reportable Baso # (Auto) Not Reportable Total Counted 100 Seg Neutrophils % 93.0 H (38-70) % Band Neutrophils % 4.0 (3-7) % Lymphocytes % (Manual) 3.0 L (25-45) % Monocytes % (Manual) (2-11) % Metamyelocytes % (-0) % Neutrophils # (Manual) 23744 H (7179-3997) /uL RBC Morphology Normal morphology Hypochromasia ABG pH (7.35-7.45) ABG pCO2 (35-45) mmHg ABG pO2 (80-100) mmHg ABG HCO3 (22-26) mmol/L ABG Total CO2 (21-31) mmol/L ABG O2 Saturation (95-100) % ABG Base Excess (-2-2) mmol/L FiO2 Sodium 140 139 (137-145) mmol/L Potassium 5.4 H 5.0 (3.4-5.1) mmol/L Chloride 96 L 97 L (98-107) mmol/L Carbon Dioxide 36 H 37 H (22-32) mmol/L BUN 28 H 40 H (9-20) mg/dL Creatinine 0.50 L 0.40 L (0.66-1.25) mg/dL Estimated GFR > 60.0 > 60.0 (>60) mL/min BUN/Creatinine Ratio 56.0 H 100.0 H (6-22) Glucose 273 H 137 H D (80-110) mg/dL Lactate (0.7-2.1) mmol/L Calcium 9.9 9.4 (8.4-10.2) mg/dL Magnesium (1.6-2.3) mg/dL Total Bilirubin (0.2-1.3) mg/dL AST (17-59) IU/L ALT (21-72) IU/L Alkaline Phosphatase (38-126) U/L Total Creatine Kinase (55-170) U/L CK-MB (CK-2) CK-MB (CK-2) Rel Index Troponin I (0.01-0.034) ng/mL B-Natriuretic Peptide (<100) Total Protein (6.3-8.2) g/dL Albumin (3.5-5.0) g/dL Globulin (1.7-4.1) g/dL Albumin/Globulin Ratio (1.0-2.8) Procalcitonin (<0.5) ng/mL Urine Color Urine Appearance Urine pH (4.5-8.0) Ur Specific [place] (1.000-1.035) Urine Protein (Negative) Urine Glucose (UA) (Negative) g/dL Urine Ketones (NEGATIVE) Urine Occult Blood (Negative) Urine Nitrate (Negative) Urine Bilirubin (NEGATIVE) Urine Urobilinogen (0.2) E.U./dL Ur Leukocyte Esterase (NEGATIVE) Urine RBC (0-5/HPF) Urine WBC (0-5/HPF) Ur Squamous Epith Cells Calcium Oxalate Crystal (None) Amorphous Sediment Urine Bacteria (None) Urine Mucus (Negative) Ur Culture Indicated? Nasal Screen MRSA (PCR) (Negative) Chlamy pneumoniae PCR (Not Detect) Adenovirus (PCR) (Not Detect) B.parapertussis DNA PCR (Not Detect) Coronavirus OC43 (PCR) (Not Detect) Coronavirus HKU1 (PCR) (Not Detect) Coronavirus 229E (PCR) (Not Detect) Coronavirus NL63 (PCR) (Not Detect) Human Metapneumovir PCR (Not Detect) Influenza Type A (PCR) (Not Detect) Influenza Type B (PCR) (Not Detect) M. pneumoniae (PCR) (Not Detect) Parainfluenza 1 (PCR) (Not Detect) Parainfluenza 2 (PCR) (Not Detect) Parainfluenza 3 (PCR) (Not Detect) Parainfluenza 4 (PCR) (Not Detect) RSV (PCR) (Not Detect) Entero/Rhino (PCR) (Not Detect) Anti-Streptolysin O Ab (< 200) IU/mL 10/18/18 10/18/18 Range/Units 06:12 06:12 WBC (4.5-11.0) X10^3/uL RBC (4.5-5.9) X10^6/uL Hgb (13.5-17.5) g/dL Hct (41-53) % MCV (80-100) fL MCH (26-34) PG MCHC (30-36) % RDW (11.6-14.8) % Plt Count (150-400) X10^3/uL Neut % (Auto) Lymph % (Auto) [place] % (Auto) Eos % (Auto) Baso % (Auto) Lymph # (Auto) [place] # (Auto) Baso # (Auto) Total Counted Seg Neutrophils % (38-70) % Band Neutrophils % (3-7) % Lymphocytes % (Manual) (25-45) % Monocytes % (Manual) (2-11) % Metamyelocytes % (-0) % Neutrophils # (Manual) (6720-6925) /uL RBC Morphology Hypochromasia ABG pH (7.35-7.45) ABG pCO2 (35-45) mmHg ABG pO2 (80-100) mmHg ABG HCO3 (22-26) mmol/L ABG Total CO2 (21-31) mmol/L ABG O2 Saturation (95-100) % ABG Base Excess (-2-2) mmol/L FiO2 Sodium (137-145) mmol/L Potassium (3.4-5.1) mmol/L Chloride (98-107) mmol/L Carbon Dioxide (22-32) mmol/L BUN (9-20) mg/dL Creatinine (0.66-1.25) mg/dL Estimated GFR (>60) mL/min BUN/Creatinine Ratio (6-22) Glucose (80-110) mg/dL Lactate (0.7-2.1) mmol/L Calcium (8.4-10.2) mg/dL Magnesium 2.1 (1.6-2.3) mg/dL Total Bilirubin (0.2-1.3) mg/dL AST (17-59) IU/L ALT (21-72) IU/L Alkaline Phosphatase (38-126) U/L Total Creatine Kinase (55-170) U/L CK-MB (CK-2) CK-MB (CK-2) Rel Index Troponin I (0.01-0.034) ng/mL B-Natriuretic Peptide (<100) Total Protein (6.3-8.2) g/dL Albumin (3.5-5.0) g/dL Globulin (1.7-4.1) g/dL Albumin/Globulin Ratio (1.0-2.8) Procalcitonin < 0.05 (<0.5) ng/mL Urine Color Urine Appearance Urine pH (4.5-8.0) Ur Specific [place] (1.000-1.035) Urine Protein (Negative) Urine Glucose (UA) (Negative) g/dL Urine Ketones (NEGATIVE) Urine Occult Blood (Negative) Urine Nitrate (Negative) Urine Bilirubin (NEGATIVE) Urine Urobilinogen (0.2) E.U./dL Ur Leukocyte Esterase (NEGATIVE) Urine RBC (0-5/HPF) Urine WBC (0-5/HPF) Ur Squamous Epith Cells Calcium Oxalate Crystal (None) Amorphous Sediment Urine Bacteria (None) Urine Mucus (Negative) Ur Culture Indicated? Nasal Screen MRSA (PCR) (Negative) Chlamy pneumoniae PCR (Not Detect) Adenovirus (PCR) (Not Detect) B.parapertussis DNA PCR (Not Detect) Coronavirus OC43 (PCR) (Not Detect) Coronavirus HKU1 (PCR) (Not Detect) Coronavirus 229E (PCR) (Not Detect) Coronavirus NL63 (PCR) (Not Detect) Human Metapneumovir PCR (Not Detect) Influenza Type A (PCR) (Not Detect) Influenza Type B (PCR) (Not Detect) M. pneumoniae (PCR) (Not Detect) Parainfluenza 1 (PCR) (Not Detect) Parainfluenza 2 (PCR) (Not Detect) Parainfluenza 3 (PCR) (Not Detect) Parainfluenza 4 (PCR) (Not Detect) RSV (PCR) (Not Detect) Entero/Rhino (PCR) (Not Detect) Anti-Streptolysin O Ab (< 200) IU/mL Point of Care Testing Glucose POC 143 Imaging Data Chest x-ray: Radiologist's impression: PROCEDURE: XR CHEST 1V INDICATIONS: dyspnea TECHNIQUE: One view of the chest was acquired. COMPARISON: Located Within [facility], CR, XR CHEST 2V, 09/22/2018, 9:38. Located Within [facility], CT, CT ANGIO CHEST PE PROTOCOL, 07/06/2018, 13:44. Located Within [facility], CR, XR CHEST 1V, 10/09/2018, 16:50. FINDINGS: Surgical changes and devices: None. Lungs and pleura: Severe emphysematous change. Developing density in the right upper midlung field likely represents superimposed focal pneumonia. Left basilar density likely represents scarring. Mediastinum: Mediastinal contours appear normal. Heart size is normal. Bones and chest wall: No suspicious bony lesions. Overlying soft tissues appear unremarkable. IMPRESSION: 1. Severe emphysema. 2. Probable developing focal pneumonia in the right upper lobe. Comment: Suggest progress films till clear. Dictated by: Sam Cummings M.D. on 10/14/2018 at 10:43 Approved by: Sam Cummings M.D. on 10/14/2018 at 10:45 ECG Data Attestation: I personally reviewed and interpreted this ECG as follows: ( See below) Interpretation: 12 lead EKG was performed October 14, 2018 at 10:24 a.m., as follows: Regular ventricular rhythm with a rate of 86 beats per minute MI interval 116 milliseconds QRS duration 91 milliseconds QTC intervals of 372 millisecond normal axis nonspecific ST T wave changes baseline artifact interpretation: Normal sinus rhythm with sinus arrhythmia and short MI interval; no STEMI; borderline EKG as interpreted by ED MD. Discharge Plan Departure Patient Disposition: Admitted As Inpatient Clinical Impression: Acute exacerbation of chronic obstructive pulmonary disease (COPD) Pneumonia Qualifiers: Pneumonia type: due to unspecified organism Laterality: right Lung location: upper lobe of lung Qualified Code(s): J18.1 - Lobar pneumonia, unspecified organism Discharge Date/Time: 10/14/18 13:12 Interventions: ED Discharge Assessment Last Done: 10/14/18 13:11 Referrals: Rubens Olivier MD [Primary Care Provider] - Admit Date/Time: 10/14/18 12:26 Admit Provider: Nel Morgan
--- NOTE | 2018-10-14 10:30 | ED_ITS ---
HPI - SOB/Dyspnea General Chief Complaint: Shortness of Breath/Dyspnea Stated Complaint: SOB, COPD Time Seen by Provider: 10/14/18 10:17 Source: patient and EMS Mode of arrival: EMS Limitations: no limitations History of Present Illness Patient complains of shortness of breath that started yesterday. Patient states he has been gurgly and feels as though he may have pneumonia again. He states he has not had any fevers. He has a chronic cough, which is generally congested, but seems more congested than usual. Patient states he was given a nebulizer treatment yesterday and that this did seem to help, but that he was only given 1 other 1 in the middle of the night at his [facility] and none further. Medics state that despite the call for shortness of breath, the last breathing treatment given the rehab center had not been since 2:00 in the morning. Patient denies any chest pain. No nausea or vomiting. No abdominal pain. No diarrhea. No other complaints at this time. Related Data Home Medications Medication Instructions Recorded Confirmed cholecalciferol (vitamin D3) 1,000 unit PO DAILY #0 02/07/17 10/15/18 [Vitamin D3] guaifenesin [Mucinex] 600 mg PO Q12H #0 02/07/17 10/15/18 multivitamin [Multiple Vitamins] 1 tab PO DAILY #0 02/07/17 10/15/18 Spiriva with HandiHaler 1 puff INH DAILY #0 08/03/17 10/15/18 Advair Diskus 1 inh INHALATION Q12H 01/26/18 10/15/18 Spacer: Inhaler Spacer Device 1 ea INHALATION DIRECTED 01/26/18 10/15/18 albuterol sulfate 3 ml INHALATION TID 01/26/18 10/15/18 aspirin 81 mg PO DAILY 01/26/18 10/15/18 ipratropium-albuterol 1 dose INHALATION Q6H PRN 01/26/18 10/15/18 tamsulosin [Flomax] 0.4 mg PO DAILY 07/06/18 10/15/18 albuterol sulfate [Proventil HFA] 2 puff INHALATION Q4H PRN 10/09/18 10/15/18 bisacodyl 5 - 10 mg PO PRN PRN 10/09/18 10/15/18 bisacodyl 10 mg [place] PRN PRN 10/09/18 10/15/18 itraconazole 400 mg PO BID 10/09/18 10/15/18 magnesium hydroxide [Milk of 30 ml PO PRN PRN 10/09/18 10/15/18 Magnesia] metformin 1,000 mg PO BID 10/09/18 10/15/18 pantoprazole 40 mg PO DAILY 10/09/18 10/15/18 prednisone 10 mg PO DAILY 10/09/18 10/15/18 sodium phosphates [Fleet Enema] 1 ea [place] PRN PRN 10/09/18 10/15/18 Previous Rx's Medication Instructions Recorded atorvastatin 20 mg tablet 20 mg PO BEDTIME #90 tab 08/20/18 furosemide 40 mg tablet 40 mg PO DAILY PRN #30 tab 08/21/18 lorazepam 0.5 mg PO TID #60 tab 09/25/18 prednisone 40 mg PO DAILY #28 tab 10/09/18 Allergies Allergy/AdvReac Type Severity Reaction Status Date / Time felodipine [FELODIPINE] Allergy Intermediate SWELLING Verified 10/09/18 16:49 Review of Systems Constitutional Denies chills, Denies fever(s), Denies lethargy and Denies weakness Eyes Denies change in vision, Denies eye discharge, Denies irritation and Denies loss of vision ENT Ears, Nose, Mouth, and Throat: Denies change in voice, Denies neck pain and Denies sore throat Cardiovascular Denies chest pain, Denies irregular heart rhythm, Denies lightheadedness, Denies palpitations, Reports dyspnea, Reports dyspnea on exertion and Denies orthopnea Respiratory Denies cough, Reports dyspnea, Reports dyspnea on exertion and Denies wheezing Gastrointestinal Gastrointestinal: Denies abdominal pain, Denies change in bowel habits, Denies diarrhea, Denies nausea and Denies vomiting Genitourinary Denies hematuria, Denies flank pain, Denies urinary incontinence and Denies urinary urgency Musculoskeletal Denies neck pain Integumentary/Breasts Denies pruritus, Denies erythema, Denies rash and Denies wounds Neurologic Denies confusion, Denies loss of vision and Denies weakness Psychiatric Denies anxiety, Denies confusion, Denies depression, Denies homicidal ideation and Denies suicidal ideation Endocrine Denies palpitations Hematologic/Lymphatic Denies easy bruising Allergic/Immunologic Denies wheezing PFSH Medical History Anxiety (Chronic Unknown) Peripheral vascular disease (Chronic Unknown) Hx of small bowel obstruction (Resolved 03/2015) Hyperlipemia (Chronic Unknown) Nontuberculous mycobacterial infection (Chronic 2014) Coronary artery disease (Chronic Unknown) History of colon cancer (Resolved ~2010) BPH (benign prostatic hyperplasia) (Chronic Unknown) COPD (chronic obstructive pulmonary disease) (Chronic Unknown) Diabetes (Chronic Unknown) COPD (chronic obstructive pulmonary disease) (Inactive) Dependent edema (Inactive) Surgical History H/O cardiac catheterization (Resolved 2010) S/P small bowel resection (Resolved 03/2015) Hx of hernia repair (Resolved 2008) S/P colon resection (Resolved 2010) Hx of cataract surgery (Resolved 2014) Family History Mother Cancer Father Congestive heart failure Social History household members: spouse and family Smoking Status: Former smoker alcohol intake: current Family History Mother Cancer Father Congestive heart failure Social History household members: spouse and family Smoking Status: Former smoker alcohol intake: current Exam Initial Vital Signs Initial Vital Signs: Vital Signs Temperature 97.8 F 10/14/18 10:25 Pulse Rate 90 10/14/18 10:25 Respiratory Rate 24 10/14/18 10:25 Blood Pressure 145/97 H 10/14/18 10:25 Pulse Oximetry 97 10/14/18 10:25 Const General: cooperative and well developed Nutritional Appearance: well nourished Orientation: alert, awake, oriented x3 and not confused [facility] Head: normocephalic and atraumatic Ears: external ears normal and TM's normal bilaterally Nose: external nose normal and No nasal discharge Face and sinus: sinuses nontender, face symmetric, no sinus tenderness and No dry mucous membranes Mouth: oral mucosae normal and moist mucous membranes Teeth and gingiva: dentition normal Throat: tonsils normal and uvula midline Eyes General: appearance normal, both eyes and all related structures Eyelids: eyelids normal Conjunctivae: conjunctivae normal Sclera: sclerae normal Pupils: PERRL EOM: EOM intact bilaterally Neck Neck: normal visual inspection, trachea midline, No lymphadenopathy, No midline deformity and No JVD Lymphatic: No lymphedema Chest Chest: normal inspection of the chest Resp Effort & Inspection: able to speak in complete sentences (Intermittently; occasionally, patiently completes a phrase without interrup), labored, respiratory distress (Moderate), no use of accessory muscles and prolonged expiratory phase Auscultation: diminished lung sounds (Bilat), no rales, no rhonchi and wheezes Cardio Rate: regular rate Rhythm: regular rhythm Heart Sounds: no click, no gallops, no murmurs and no rubs Pulses: normal peripheral pulses GI Inspection: non-distended Palpation: soft, no hepatosplenomegaly, No guarding, No pulsatile mass and No tender Auscultation: normal bowel sounds Back/Spine/Pelvis Back: No CVA tenderness Cervical Spine: cervical ROM normal and No pain with cervical ROM Thoracic/Lumbar Spine: thoracic and lumbar spine normal to inspection Skin General: no rashes or lesions noted, No jaundice and No petechiae Neuro General: alert, oriented x3, gait normal and no focal motor deficits Speech: speech normal Extrem General: full ROM, no clubbing, cyanosis or edema, no pedal edema and no calf tenderness Psych Appearance: well kempt Mental Status: mental status grossly normal Attitude: cooperative Thought Content: normal and suicidality Judgment: judgment good Course Course Narrative: Patient was evaluated by myself immediately upon arrival in the emergency department. His oxygen saturation was actually quite good on his baseline of 4 L of oxygen per nasal cannula; however, patient's respirations were labored and his lung sounds were diminished, and as such, RT was immediately summoned to start a breathing treatment on the patient. Patient was found to be improved after a DuoNeb and albuterol, but stated he was not yet his back to his baseline and still felt significantly short of breath. Patient had received two nebulized albuterol treatments EN route, well. His chest x-ray was read by the radiologist as showing a right upper lobe infiltrate, and I felt the patient should be admitted to the hospital until improved. I spoke with Dr. Morgan, who agreed to admit the patient to her service. Remainder of patient's workup was unremarkable, other than a mildly elevated white blood cell count 14.5. Patient was without deterioration in the emergency department. Orders Ordered: ED Orders 10/18/18 06:12 Basic Metabolic Panel Routine Magnesium Routine Procalcitonin Routine 10/18/18 10:46 Consult to Occupational Therapy Evaluate & Treat Consult to Physical Therapy Evaluate & Treat Acetaminophen (Tylenol) 650 mg PO Q6HR PRN PRN Reason: As Needed for Fever/Mild Pain Al Hydrox/Mg Hydrox/Simethicone (Maalox Plus) 30 ml PO Q6HR PRN PRN Reason: Dyspepsia Albuterol (Ventolin) 2.5 mg INH [id number] PRN PRN Reason: Shortness Of Breath Albuterol/Ipratropium (Duoneb) 3 ml INH [id number] [facility] Last Admin: 10/18/18 11:09 Dose: 3 ml Admin: 10/18/18 07:12 Dose: 3 ml Admin: 10/17/18 23:50 Dose: Not Given Admin: 10/17/18 18:23 Dose: Not Given Admin: 10/17/18 13:16 Dose: 3 ml Admin: 10/17/18 09:23 Dose: 3 ml Admin: 10/17/18 03:08 Dose: 3 ml Admin: 10/16/18 22:41 Dose: Not Given Admin: 10/16/18 17:48 Dose: 3 ml Admin: 10/16/18 13:43 Dose: 3 ml Admin: 10/16/18 09:50 Dose: 3 ml Admin: 10/16/18 04:11 Dose: 3 ml Admin: 10/15/18 23:16 Dose: Not Given Admin: 10/15/18 18:21 Dose: Not Given Admin: 10/15/18 14:55 Dose: 3 ml Admin: 10/15/18 09:12 Dose: 3 ml Admin: 10/15/18 04:32 Dose: 3 ml Admin: 10/14/18 22:26 Dose: 3 ml Admin: 10/14/18 17:56 Dose: 3 ml Admin: 10/14/18 17:20 Dose: Not Given Aspirin (Aspirin Ec) 81 mg PO DAILY [facility] Last Admin: 10/18/18 08:16 Dose: 81 mg Admin: 10/17/18 08:24 Dose: 81 mg Admin: 10/16/18 08:27 Dose: 81 mg Admin: 10/15/18 08:40 Dose: 81 mg Atorvastatin Calcium (Lipitor) 20 mg PO BEDTIME [facility] Last Admin: 10/17/18 20:51 Dose: 20 mg Admin: 10/16/18 20:09 Dose: 20 mg Admin: 10/15/18 20:51 Dose: 20 mg Admin: 10/14/18 22:48 Dose: 20 mg Calcium Carbonate (Tums) 1,000 mg PO Q4HR PRN PRN Reason: Dyspepsia Dextrose (D50w) 25 gm IV PRN PRN; Protocol PRN Reason: Hypoglycemia Docusate Sodium (Colace) 100 mg PO BID PRN PRN Reason: Constipation Guaifenesin (Mucinex) 1,200 mg PO Q12H [facility] Last Admin: 10/18/18 08:16 Dose: 1,200 mg Admin: 10/17/18 20:51 Dose: 1,200 mg Admin: 10/17/18 08:24 Dose: 1,200 mg Admin: 10/16/18 20:09 Dose: 1,200 mg Admin: 10/16/18 08:28 Dose: 1,200 mg Admin: 10/15/18 20:51 Dose: 1,200 mg Admin: 10/15/18 08:40 Dose: 1,200 mg Heparin Sodium (Porcine) (Heparin) 5,000 unit SUBCUT BID [facility] Last Admin: 10/18/18 11:41 Dose: 5,000 unit Admin: 10/17/18 20:51 Dose: 5,000 unit Admin: 10/17/18 08:25 Dose: 5,000 unit Admin: 10/16/18 20:29 Dose: 5,000 unit Admin: 10/16/18 08:28 Dose: 5,000 unit Admin: 10/15/18 20:50 Dose: 5,000 unit Admin: 10/15/18 08:41 Dose: 5,000 unit Admin: 10/14/18 22:49 Dose: 5,000 unit Tigecycline 50 mg/ Sodium (Chloride) 100 mls @ 200 mls/hr IV Q12H [facility] Last Admin: 10/18/18 11:40 Dose: 200 mls/hr Infusion: 10/18/18 01:08 Dose: 0 mls/hr Admin: 10/18/18 00:13 Dose: 200 mls/hr Infusion: 10/17/18 13:23 Dose: 0 mls/hr Admin: 10/17/18 12:05 Dose: 200 mls/hr Infusion: 10/17/18 01:17 Dose: 0 mls/hr Admin: 10/17/18 00:10 Dose: 200 mls/hr Sodium Chloride (Normal Saline 0.9%) 250 mls @ 21 mls/hr IV Q24H PRN PRN Reason: Flush Last Admin: 10/18/18 00:14 Dose: 21 mls/hr Insulin Aspart (Novolog Flexpen) 0 unit SUBCUT ACHS [facility]; Protocol Last Admin: 10/18/18 08:14 Dose: Not Given Admin: 10/17/18 20:50 Dose: 3 unit Admin: 10/17/18 17:13 Dose: 5 unit Admin: 10/17/18 13:21 Dose: 1 unit Admin: 10/17/18 08:25 Dose: 1 unit Admin: 10/16/18 20:11 Dose: 5 unit Admin: 10/16/18 16:46 Dose: 7 unit Admin: 10/16/18 12:41 Dose: 7 unit Admin: 10/16/18 08:23 Dose: 7 unit Admin: 10/15/18 20:51 Dose: 3 unit Admin: 10/15/18 17:04 Dose: 3 unit Admin: 10/15/18 14:18 Dose: 7 unit Admin: 10/15/18 12:15 Dose: 8 unit Admin: 10/15/18 08:42 Dose: 5 unit Admin: 10/14/18 23:51 Dose: 5 unit Insulin Glargine (Lantus Solostar (Pen)) 20 unit SUBCUT BEDTIME [facility] Last Admin: 10/17/18 20:49 Dose: 20 unit Admin: 10/16/18 20:12 Dose: 20 unit Lorazepam (Ativan) 0.5 mg IV Q2HR PRN PRN Reason: Anxiety Last Admin: 10/17/18 03:31 Dose: 0.5 mg Admin: 10/16/18 16:39 Dose: 0.5 mg Admin: 10/16/18 04:32 Dose: 0.5 mg Admin: 10/15/18 15:44 Dose: 0.5 mg Admin: 10/15/18 08:59 Dose: 0.5 mg Lorazepam (Ativan) 1 mg PO Q8H PRN PRN Reason: Anxiety Last Admin: 10/18/18 11:38 Dose: 1 mg Admin: 10/18/18 05:38 Dose: 1 mg Admin: 10/17/18 08:46 Dose: 1 mg Morphine Sulfate (Morphine) 2 mg IV Q4HR PRN PRN Reason: Dyspnea Last Admin: 10/15/18 22:18 Dose: 2 mg Admin: 10/14/18 16:31 Dose: 2 mg Itraconazole 200 Mg 200 mg PO BIDWM [facility] Last Admin: 10/18/18 08:17 Dose: 200 mg Admin: 10/17/18 17:12 Dose: 200 mg Admin: 10/17/18 08:25 Dose: 200 mg Admin: 10/16/18 16:47 Dose: 200 mg Admin: 10/16/18 08:34 Dose: 200 mg Admin: 10/15/18 17:05 Dose: 200 mg Admin: 10/15/18 08:40 Dose: 200 mg Admin: 10/14/18 17:28 Dose: 200 mg Ondansetron HCl (Zofran) 4 mg IV Q8HR PRN PRN Reason: Nausea And Vomiting Pantoprazole Sodium (Protonix) 40 mg PO DAILY [facility] Last Admin: 10/18/18 08:17 Dose: 40 mg Admin: 10/17/18 08:25 Dose: 40 mg Admin: 10/16/18 08:27 Dose: 40 mg Admin: 10/15/18 08:41 Dose: 40 mg Prednisone (Deltasone) 40 mg PO DAILY [facility] Last Admin: 10/18/18 08:16 Dose: 40 mg Admin: 10/17/18 08:24 Dose: 40 mg Admin: 10/16/18 08:27 Dose: 40 mg Admin: 10/15/18 12:14 Dose: 40 mg Fluticasone/Salmeterol (Advair 250/50 Diskus) 1 puff INH RTBID [facility] Last Admin: 10/18/18 07:14 Dose: 1 puff Admin: 10/17/18 20:51 Dose: 1 puff Admin: 10/17/18 09:22 Dose: 1 puff Admin: 10/16/18 17:49 Dose: 1 puff Admin: 10/16/18 04:12 Dose: 1 puff Admin: 10/15/18 18:22 Dose: Not Given Admin: 10/15/18 09:13 Dose: 1 puff Admin: 10/14/18 17:57 Dose: 1 puff Sennosides (Senna) 17.2 mg PO BEDTIME PRN PRN Reason: Constipation Sodium Chloride (Normal Saline 0.9% Flush) 10 ml IV PRN PRN PRN Reason: Flush Last Admin: 10/18/18 00:13 Dose: 10 ml Admin: 10/17/18 03:31 Dose: 10 ml Admin: 10/17/18 00:27 Dose: 10 ml Sodium Chloride (Normal Saline 0.9% Flush) 10 ml IV BID [facility] Last Admin: 10/18/18 08:18 Dose: 10 ml Admin: 10/17/18 20:53 Dose: 10 ml Admin: 10/17/18 13:22 Dose: 10 ml Admin: 10/16/18 20:20 Dose: 10 ml Admin: 10/16/18 12:40 Dose: 10 ml Admin: 10/15/18 20:52 Dose: 10 ml Admin: 10/15/18 08:59 Dose: 10 ml Tamsulosin HCl (Flomax) 0.4 mg PO DAILY [facility] Last Admin: 10/18/18 08:17 Dose: 0.4 mg Admin: 10/17/18 08:24 Dose: 0.4 mg Admin: 10/16/18 08:27 Dose: 0.4 mg Admin: 10/15/18 08:41 Dose: 0.4 mg Discontinued Medications Albuterol (Ventolin) 2.5 mg INH NOW ONE Stop: 10/14/18 10:39 Last Admin: 10/14/18 10:33 Dose: 2.5 mg Albuterol (Ventolin) 2.5 mg INH NOW ONE Stop: 10/14/18 10:55 Last Admin: 10/14/18 10:40 Dose: 2.5 mg Albuterol/Ipratropium (Duoneb) 3 ml INH NOW ONE Stop: 10/14/18 10:33 Last Admin: 10/14/18 10:25 Dose: 3 ml Guaifenesin (Mucinex) 1,200 mg PO Q12H [facility] Last Admin: 10/14/18 23:50 Dose: 1,200 mg Admin: 10/14/18 16:06 Dose: 1,200 mg Sodium Chloride (Normal Saline 0.9%) 1,000 mls @ 1,000 mls/hr IV BOLUS ONE Stop: 10/14/18 11:22 Last Infusion: 10/14/18 12:18 Dose: 0 mls/hr Admin: 10/14/18 10:56 Dose: 1,000 mls/hr Dexamethasone 20 mg/ Sodium (Chloride) 55 mls @ 220 mls/hr IV NOW ONE Stop: 10/14/18 10:33 Last Infusion: 10/14/18 11:16 Dose: 0 mls/hr Admin: 10/14/18 10:56 Dose: 220 mls/hr Levofloxacin (Levaquin) 500 mg in 100 mls @ 100 mls/hr IV NOW ONE Stop: 10/14/18 13:11 Last Admin: 10/14/18 12:22 Dose: 100 mls/hr Sodium Chloride (Normal Saline 0.9%) 1,000 mls @ 125 mls/hr IV CONT [facility] Last Admin: 10/14/18 14:59 Dose: Not Given Levofloxacin (Levaquin) 750 mg in 150 mls @ 100 mls/hr IV 1200 [facility] Last Infusion: 10/15/18 17:27 Dose: 0 mls/hr Admin: 10/15/18 13:04 Dose: 100 mls/hr Piperacillin/Tazobactam/Dextrose (Zosyn) 3.375 gm in 50 mls @ 100 mls/hr IV Q8H [facility] Last Admin: 10/14/18 18:18 Dose: Not Given Piperacillin/Tazobactam/Dextrose (Zosyn) 3.375 gm in 50 mls @ 100 mls/hr IV Q6HR [facility] Last Infusion: 10/16/18 08:28 Dose: 0 mls/hr Admin: 10/16/18 06:06 Dose: 100 mls/hr Infusion: 10/16/18 01:30 Dose: 0 mls/hr Admin: 10/16/18 00:05 Dose: 100 mls/hr Infusion: 10/15/18 21:08 Dose: 0 mls/hr Admin: 10/15/18 17:30 Dose: 100 mls/hr Infusion: 10/15/18 13:04 Dose: 0 mls/hr Admin: 10/15/18 12:14 Dose: 100 mls/hr Infusion: 10/15/18 08:55 Dose: 0 mls/hr Admin: 10/15/18 06:06 Dose: 100 mls/hr Infusion: 10/15/18 01:35 Dose: 0 mls/hr Admin: 10/14/18 23:50 Dose: 100 mls/hr Infusion: 10/14/18 19:03 Dose: 0 mls/hr Admin: 10/14/18 17:33 Dose: 100 mls/hr Tigecycline 100 mg/ Sodium (Chloride) 100 mls @ 100 mls/hr IV NOW ONE Stop: 10/16/18 12:01 Last Infusion: 10/16/18 14:14 Dose: 0 mls/hr Admin: 10/16/18 12:39 Dose: 100 mls/hr Lorazepam (Ativan) 0.5 mg PO TID [facility] Last Admin: 10/14/18 16:04 Dose: 0.5 mg Methylprednisolone (Solu-Medrol 125 Mg Vial) 60 mg IV Q8H [facility] Last Admin: 10/15/18 08:41 Dose: 60 mg Admin: 10/15/18 01:37 Dose: 60 mg Admin: 10/14/18 17:22 Dose: 60 mg Prednisone (Deltasone) 40 mg PO DAILY [facility] Fluticasone/Salmeterol (Advair 250/50 Diskus) 1 puff INH Q12H [facility] Last Admin: 10/14/18 17:20 Dose: Not Given Vital Signs - 8 hr 10/18/18 07:14 10/18/18 07:28 10/18/18 11:10 Temperature 97.4 F L Pulse Rate 74 76 81 Respiratory Rate 24 24 22 Blood Pressure 139/64 Pulse Oximetry 99 100 98 MDM - SOB/Dyspnea Medical Records Attestation: I reviewed the patient's medical records. Lab Data Attestation: I reviewed the patient's lab results. Result diagrams: 10/16/18 04:44 10/18/18 06:12 Lab Results 10/14/18 10/14/18 10/14/18 Range/Units 10:40 10:40 10:40 WBC 18.5 H (4.5-11.0) X10^3/uL RBC 4.18 L (4.5-5.9) X10^6/uL Hgb 12.1 L (13.5-17.5) g/dL Hct 38.1 L (41-53) % MCV 91.1 (80-100) fL MCH 28.8 (26-34) PG MCHC 31.7 (30-36) % RDW 15.6 H (11.6-14.8) % Plt Count 419 H (150-400) X10^3/uL Neut % (Auto) Not Reportable Lymph % (Auto) Not Reportable [place] % (Auto) Not Reportable Eos % (Auto) Not Reportable Baso % (Auto) Not Reportable Lymph # (Auto) Not Reportable [place] # (Auto) Not Reportable Baso # (Auto) Not Reportable Total Counted 100 Seg Neutrophils % 86.0 H (38-70) % Band Neutrophils % 8.0 H (3-7) % Lymphocytes % (Manual) 1.0 L (25-45) % Monocytes % (Manual) 3.0 (2-11) % Metamyelocytes % 2.0 H (-0) % Neutrophils # (Manual) 98865 H (3492-5131) /uL RBC Morphology Normal morphology Hypochromasia ABG pH (7.35-7.45) ABG pCO2 (35-45) mmHg ABG pO2 (80-100) mmHg ABG HCO3 (22-26) mmol/L ABG Total CO2 (21-31) mmol/L ABG O2 Saturation (95-100) % ABG Base Excess (-2-2) mmol/L FiO2 Sodium 138 (137-145) mmol/L Potassium 4.6 (3.4-5.1) mmol/L Chloride 93 L (98-107) mmol/L Carbon Dioxide 40 H* (22-32) mmol/L BUN 19 (9-20) mg/dL Creatinine 0.40 L (0.66-1.25) mg/dL Estimated GFR > 60.0 (>60) mL/min BUN/Creatinine Ratio 47.5 H (6-22) Glucose 202 H (80-110) mg/dL Lactate (0.7-2.1) mmol/L Calcium 9.8 (8.4-10.2) mg/dL Magnesium (1.6-2.3) mg/dL Total Bilirubin 0.3 (0.2-1.3) mg/dL AST 15 L (17-59) IU/L ALT 21 (21-72) IU/L Alkaline Phosphatase 91 (38-126) U/L Total Creatine Kinase < 20 L (55-170) U/L CK-MB (CK-2) TNP CK-MB (CK-2) Rel Index TNP Troponin I < 0.012 (0.01-0.034) ng/mL B-Natriuretic Peptide < 100 (<100) Total Protein 6.9 (6.3-8.2) g/dL Albumin 3.6 (3.5-5.0) g/dL Globulin 3.3 (1.7-4.1) g/dL Albumin/Globulin Ratio 1.1 (1.0-2.8) Procalcitonin 0.08 (<0.5) ng/mL Urine Color Urine Appearance Urine pH (4.5-8.0) Ur Specific [place] (1.000-1.035) Urine Protein (Negative) Urine Glucose (UA) (Negative) g/dL Urine Ketones (NEGATIVE) Urine Occult Blood (Negative) Urine Nitrate (Negative) Urine Bilirubin (NEGATIVE) Urine Urobilinogen (0.2) E.U./dL Ur Leukocyte Esterase (NEGATIVE) Urine RBC (0-5/HPF) Urine WBC (0-5/HPF) Ur Squamous Epith Cells Calcium Oxalate Crystal (None) Amorphous Sediment Urine Bacteria (None) Urine Mucus (Negative) Ur Culture Indicated? Nasal Screen MRSA (PCR) (Negative) Chlamy pneumoniae PCR (Not Detect) Adenovirus (PCR) (Not Detect) B.parapertussis DNA PCR (Not Detect) Coronavirus OC43 (PCR) (Not Detect) Coronavirus HKU1 (PCR) (Not Detect) Coronavirus 229E (PCR) (Not Detect) Coronavirus NL63 (PCR) (Not Detect) Human Metapneumovir PCR (Not Detect) Influenza Type A (PCR) (Not Detect) Influenza Type B (PCR) (Not Detect) M. pneumoniae (PCR) (Not Detect) Parainfluenza 1 (PCR) (Not Detect) Parainfluenza 2 (PCR) (Not Detect) Parainfluenza 3 (PCR) (Not Detect) Parainfluenza 4 (PCR) (Not Detect) RSV (PCR) (Not Detect) Entero/Rhino (PCR) (Not Detect) Anti-Streptolysin O Ab (< 200) IU/mL 10/14/18 10/14/18 10/14/18 Range/Units 16:25 17:01 17:25 WBC (4.5-11.0) X10^3/uL RBC (4.5-5.9) X10^6/uL Hgb (13.5-17.5) g/dL Hct (41-53) % MCV (80-100) fL MCH (26-34) PG MCHC (30-36) % RDW (11.6-14.8) % Plt Count (150-400) X10^3/uL Neut % (Auto) Lymph % (Auto) [place] % (Auto) Eos % (Auto) Baso % (Auto) Lymph # (Auto) [place] # (Auto) Baso # (Auto) Total Counted Seg Neutrophils % (38-70) % Band Neutrophils % (3-7) % Lymphocytes % (Manual) (25-45) % Monocytes % (Manual) (2-11) % Metamyelocytes % (-0) % Neutrophils # (Manual) (7950-9548) /uL RBC Morphology Hypochromasia ABG pH 7.44 (7.35-7.45) ABG pCO2 49.5 H (35-45) mmHg ABG pO2 90 (80-100) mmHg ABG HCO3 33 H (22-26) mmol/L ABG Total CO2 35 H (21-31) mmol/L ABG O2 Saturation 97 (95-100) % ABG Base Excess 9.0 H (-2-2) mmol/L FiO2 0.32 Sodium (137-145) mmol/L Potassium (3.4-5.1) mmol/L Chloride (98-107) mmol/L Carbon Dioxide (22-32) mmol/L BUN (9-20) mg/dL Creatinine (0.66-1.25) mg/dL Estimated GFR (>60) mL/min BUN/Creatinine Ratio (6-22) Glucose (80-110) mg/dL Lactate (0.7-2.1) mmol/L Calcium (8.4-10.2) mg/dL Magnesium (1.6-2.3) mg/dL Total Bilirubin (0.2-1.3) mg/dL AST (17-59) IU/L ALT (21-72) IU/L Alkaline Phosphatase (38-126) U/L Total Creatine Kinase (55-170) U/L CK-MB (CK-2) CK-MB (CK-2) Rel Index Troponin I (0.01-0.034) ng/mL B-Natriuretic Peptide (<100) Total Protein (6.3-8.2) g/dL Albumin (3.5-5.0) g/dL Globulin (1.7-4.1) g/dL Albumin/Globulin Ratio (1.0-2.8) Procalcitonin (<0.5) ng/mL Urine Color Urine Appearance Urine pH (4.5-8.0) Ur Specific [place] (1.000-1.035) Urine Protein (Negative) Urine Glucose (UA) (Negative) g/dL Urine Ketones (NEGATIVE) Urine Occult Blood (Negative) Urine Nitrate (Negative) Urine Bilirubin (NEGATIVE) Urine Urobilinogen (0.2) E.U./dL Ur Leukocyte Esterase (NEGATIVE) Urine RBC (0-5/HPF) Urine WBC (0-5/HPF) Ur Squamous Epith Cells Calcium Oxalate Crystal (None) Amorphous Sediment Urine Bacteria (None) Urine Mucus (Negative) Ur Culture Indicated? Nasal Screen MRSA (PCR) Negative for mrsa (Negative) Chlamy pneumoniae PCR (Not Detect) Adenovirus (PCR) (Not Detect) B.parapertussis DNA PCR (Not Detect) Coronavirus OC43 (PCR) (Not Detect) Coronavirus HKU1 (PCR) (Not Detect) Coronavirus 229E (PCR) (Not Detect) Coronavirus NL63 (PCR) (Not Detect) Human Metapneumovir PCR (Not Detect) Influenza Type A (PCR) (Not Detect) Influenza Type B (PCR) (Not Detect) M. pneumoniae (PCR) (Not Detect) Parainfluenza 1 (PCR) (Not Detect) Parainfluenza 2 (PCR) (Not Detect) Parainfluenza 3 (PCR) (Not Detect) Parainfluenza 4 (PCR) (Not Detect) RSV (PCR) (Not Detect) Entero/Rhino (PCR) (Not Detect) Anti-Streptolysin O Ab < 50 (< 200) IU/mL 10/14/18 10/14/18 10/14/18 Range/Units 17:25 18:30 18:30 WBC (4.5-11.0) X10^3/uL RBC (4.5-5.9) X10^6/uL Hgb (13.5-17.5) g/dL Hct (41-53) % MCV (80-100) fL MCH (26-34) PG MCHC (30-36) % RDW (11.6-14.8) % Plt Count (150-400) X10^3/uL Neut % (Auto) Lymph % (Auto) [place] % (Auto) Eos % (Auto) Baso % (Auto) Lymph # (Auto) [place] # (Auto) Baso # (Auto) Total Counted Seg Neutrophils % (38-70) % Band Neutrophils % (3-7) % Lymphocytes % (Manual) (25-45) % Monocytes % (Manual) (2-11) % Metamyelocytes % (-0) % Neutrophils # (Manual) (4323-9112) /uL RBC Morphology Hypochromasia ABG pH (7.35-7.45) ABG pCO2 (35-45) mmHg ABG pO2 (80-100) mmHg ABG HCO3 (22-26) mmol/L ABG Total CO2 (21-31) mmol/L ABG O2 Saturation (95-100) % ABG Base Excess (-2-2) mmol/L FiO2 Sodium (137-145) mmol/L Potassium (3.4-5.1) mmol/L Chloride (98-107) mmol/L Carbon Dioxide (22-32) mmol/L BUN (9-20) mg/dL Creatinine (0.66-1.25) mg/dL Estimated GFR (>60) mL/min BUN/Creatinine Ratio (6-22) Glucose (80-110) mg/dL Lactate 3.1 H (0.7-2.1) mmol/L Calcium (8.4-10.2) mg/dL Magnesium (1.6-2.3) mg/dL Total Bilirubin (0.2-1.3) mg/dL AST (17-59) IU/L ALT (21-72) IU/L Alkaline Phosphatase (38-126) U/L Total Creatine Kinase (55-170) U/L CK-MB (CK-2) CK-MB (CK-2) Rel Index Troponin I (0.01-0.034) ng/mL B-Natriuretic Peptide (<100) Total Protein (6.3-8.2) g/dL Albumin (3.5-5.0) g/dL Globulin (1.7-4.1) g/dL Albumin/Globulin Ratio (1.0-2.8) Procalcitonin (<0.5) ng/mL Urine Color Yellow Urine Appearance Slightly cloudy Urine pH 6.5 (4.5-8.0) Ur Specific [place] 1.010 (1.000-1.035) Urine Protein Negative (Negative) Urine Glucose (UA) 2+ H (Negative) g/dL Urine Ketones Negative (NEGATIVE) Urine Occult Blood 2+ H (Negative) Urine Nitrate Negative (Negative) Urine Bilirubin Negative (NEGATIVE) Urine Urobilinogen 0.2 (0.2) E.U./dL Ur Leukocyte Esterase Trace H (NEGATIVE) Urine RBC 10-30/hpf H (0-5/HPF) Urine WBC 5-10/hpf H (0-5/HPF) Ur Squamous Epith Cells 1-5 /hpf Calcium Oxalate Crystal Moderate H (None) Amorphous Sediment 1+ Urine Bacteria Moderate (10-30) H (None) Urine Mucus 1+ H (Negative) Ur Culture Indicated? Specimen cultured Nasal Screen MRSA (PCR) (Negative) Chlamy pneumoniae PCR Not detected (Not Detect) Adenovirus (PCR) Not detected (Not Detect) B.parapertussis DNA PCR Not detected (Not Detect) Coronavirus OC43 (PCR) Not detected (Not Detect) Coronavirus HKU1 (PCR) Not detected (Not Detect) Coronavirus 229E (PCR) Not detected (Not Detect) Coronavirus NL63 (PCR) Not detected (Not Detect) Human Metapneumovir PCR Not detected (Not Detect) Influenza Type A (PCR) Not detected (Not Detect) Influenza Type B (PCR) Not detected (Not Detect) M. pneumoniae (PCR) Not detected (Not Detect) Parainfluenza 1 (PCR) Not detected (Not Detect) Parainfluenza 2 (PCR) Not detected (Not Detect) Parainfluenza 3 (PCR) Not detected (Not Detect) Parainfluenza 4 (PCR) Not detected (Not Detect) RSV (PCR) Not detected (Not Detect) Entero/Rhino (PCR) Not detected (Not Detect) Anti-Streptolysin O Ab (< 200) IU/mL 10/14/18 10/15/18 10/15/18 Range/Units 20:22 04:50 04:50 WBC 11.3 H (4.5-11.0) X10^3/uL RBC 3.81 L (4.5-5.9) X10^6/uL Hgb 11.0 L (13.5-17.5) g/dL Hct 34.5 L (41-53) % MCV 90.6 (80-100) fL MCH 28.8 (26-34) PG MCHC 31.7 (30-36) % RDW 15.6 H (11.6-14.8) % Plt Count 393 (150-400) X10^3/uL Neut % (Auto) Not Reportable Lymph % (Auto) Not Reportable [place] % (Auto) Not Reportable Eos % (Auto) Not Reportable Baso % (Auto) Not Reportable Lymph # (Auto) Not Reportable [place] # (Auto) Not Reportable Baso # (Auto) Not Reportable Total Counted 100 Seg Neutrophils % 90.0 H (38-70) % Band Neutrophils % 4.0 (3-7) % Lymphocytes % (Manual) 1.0 L (25-45) % Monocytes % (Manual) 3.0 (2-11) % Metamyelocytes % 2.0 H (-0) % Neutrophils # (Manual) 91663 H (5773-0568) /uL RBC Morphology See below Hypochromasia 1+ H ABG pH (7.35-7.45) ABG pCO2 (35-45) mmHg ABG pO2 (80-100) mmHg ABG HCO3 (22-26) mmol/L ABG Total CO2 (21-31) mmol/L ABG O2 Saturation (95-100) % ABG Base Excess (-2-2) mmol/L FiO2 Sodium 139 (137-145) mmol/L Potassium 5.0 (3.4-5.1) mmol/L Chloride 95 L (98-107) mmol/L Carbon Dioxide 38 H (22-32) mmol/L BUN 20 (9-20) mg/dL Creatinine 0.50 L (0.66-1.25) mg/dL Estimated GFR > 60.0 (>60) mL/min BUN/Creatinine Ratio 40.0 H (6-22) Glucose 209 H (80-110) mg/dL Lactate 4.6 H (0.7-2.1) mmol/L Calcium 9.9 (8.4-10.2) mg/dL Magnesium (1.6-2.3) mg/dL Total Bilirubin (0.2-1.3) mg/dL AST (17-59) IU/L ALT (21-72) IU/L Alkaline Phosphatase (38-126) U/L Total Creatine Kinase (55-170) U/L CK-MB (CK-2) CK-MB (CK-2) Rel Index Troponin I < 0.012 (0.01-0.034) ng/mL B-Natriuretic Peptide < 100 (<100) Total Protein (6.3-8.2) g/dL Albumin (3.5-5.0) g/dL Globulin (1.7-4.1) g/dL Albumin/Globulin Ratio (1.0-2.8) Procalcitonin (<0.5) ng/mL Urine Color Urine Appearance Urine pH (4.5-8.0) Ur Specific [place] (1.000-1.035) Urine Protein (Negative) Urine Glucose (UA) (Negative) g/dL Urine Ketones (NEGATIVE) Urine Occult Blood (Negative) Urine Nitrate (Negative) Urine Bilirubin (NEGATIVE) Urine Urobilinogen (0.2) E.U./dL Ur Leukocyte Esterase (NEGATIVE) Urine RBC (0-5/HPF) Urine WBC (0-5/HPF) Ur Squamous Epith Cells Calcium Oxalate Crystal (None) Amorphous Sediment Urine Bacteria (None) Urine Mucus (Negative) Ur Culture Indicated? Nasal Screen MRSA (PCR) (Negative) Chlamy pneumoniae PCR (Not Detect) Adenovirus (PCR) (Not Detect) B.parapertussis DNA PCR (Not Detect) Coronavirus OC43 (PCR) (Not Detect) Coronavirus HKU1 (PCR) (Not Detect) Coronavirus 229E (PCR) (Not Detect) Coronavirus NL63 (PCR) (Not Detect) Human Metapneumovir PCR (Not Detect) Influenza Type A (PCR) (Not Detect) Influenza Type B (PCR) (Not Detect) M. pneumoniae (PCR) (Not Detect) Parainfluenza 1 (PCR) (Not Detect) Parainfluenza 2 (PCR) (Not Detect) Parainfluenza 3 (PCR) (Not Detect) Parainfluenza 4 (PCR) (Not Detect) RSV (PCR) (Not Detect) Entero/Rhino (PCR) (Not Detect) Anti-Streptolysin O Ab (< 200) IU/mL 10/15/18 10/15/18 10/15/18 Range/Units 04:50 04:50 09:30 WBC (4.5-11.0) X10^3/uL RBC (4.5-5.9) X10^6/uL Hgb (13.5-17.5) g/dL Hct (41-53) % MCV (80-100) fL MCH (26-34) PG MCHC (30-36) % RDW (11.6-14.8) % Plt Count (150-400) X10^3/uL Neut % (Auto) Lymph % (Auto) [place] % (Auto) Eos % (Auto) Baso % (Auto) Lymph # (Auto) [place] # (Auto) Baso # (Auto) Total Counted Seg Neutrophils % (38-70) % Band Neutrophils % (3-7) % Lymphocytes % (Manual) (25-45) % Monocytes % (Manual) (2-11) % Metamyelocytes % (-0) % Neutrophils # (Manual) (0257-9083) /uL RBC Morphology Hypochromasia ABG pH (7.35-7.45) ABG pCO2 (35-45) mmHg ABG pO2 (80-100) mmHg ABG HCO3 (22-26) mmol/L ABG Total CO2 (21-31) mmol/L ABG O2 Saturation (95-100) % ABG Base Excess (-2-2) mmol/L FiO2 Sodium (137-145) mmol/L Potassium (3.4-5.1) mmol/L Chloride (98-107) mmol/L Carbon Dioxide (22-32) mmol/L BUN (9-20) mg/dL Creatinine (0.66-1.25) mg/dL Estimated GFR (>60) mL/min BUN/Creatinine Ratio (6-22) Glucose (80-110) mg/dL Lactate 3.1 H 4.6 H (0.7-2.1) mmol/L Calcium (8.4-10.2) mg/dL Magnesium (1.6-2.3) mg/dL Total Bilirubin (0.2-1.3) mg/dL AST (17-59) IU/L ALT (21-72) IU/L Alkaline Phosphatase (38-126) U/L Total Creatine Kinase (55-170) U/L CK-MB (CK-2) CK-MB (CK-2) Rel Index Troponin I (0.01-0.034) ng/mL B-Natriuretic Peptide (<100) Total Protein (6.3-8.2) g/dL Albumin (3.5-5.0) g/dL Globulin (1.7-4.1) g/dL Albumin/Globulin Ratio (1.0-2.8) Procalcitonin < 0.05 (<0.5) ng/mL Urine Color Urine Appearance Urine pH (4.5-8.0) Ur Specific [place] (1.000-1.035) Urine Protein (Negative) Urine Glucose (UA) (Negative) g/dL Urine Ketones (NEGATIVE) Urine Occult Blood (Negative) Urine Nitrate (Negative) Urine Bilirubin (NEGATIVE) Urine Urobilinogen (0.2) E.U./dL Ur Leukocyte Esterase (NEGATIVE) Urine RBC (0-5/HPF) Urine WBC (0-5/HPF) Ur Squamous Epith Cells Calcium Oxalate Crystal (None) Amorphous Sediment Urine Bacteria (None) Urine Mucus (Negative) Ur Culture Indicated? Nasal Screen MRSA (PCR) (Negative) Chlamy pneumoniae PCR (Not Detect) Adenovirus (PCR) (Not Detect) B.parapertussis DNA PCR (Not Detect) Coronavirus OC43 (PCR) (Not Detect) Coronavirus HKU1 (PCR) (Not Detect) Coronavirus 229E (PCR) (Not Detect) Coronavirus NL63 (PCR) (Not Detect) Human Metapneumovir PCR (Not Detect) Influenza Type A (PCR) (Not Detect) Influenza Type B (PCR) (Not Detect) M. pneumoniae (PCR) (Not Detect) Parainfluenza 1 (PCR) (Not Detect) Parainfluenza 2 (PCR) (Not Detect) Parainfluenza 3 (PCR) (Not Detect) Parainfluenza 4 (PCR) (Not Detect) RSV (PCR) (Not Detect) Entero/Rhino (PCR) (Not Detect) Anti-Streptolysin O Ab (< 200) IU/mL 10/16/18 10/16/18 10/18/18 Range/Units 04:44 04:44 06:12 WBC 14.5 H (4.5-11.0) X10^3/uL RBC 3.89 L (4.5-5.9) X10^6/uL Hgb 11.1 L (13.5-17.5) g/dL Hct 34.8 L (41-53) % MCV 89.6 (80-100) fL MCH 28.5 (26-34) PG MCHC 31.8 (30-36) % RDW 15.9 H (11.6-14.8) % Plt Count 454 H (150-400) X10^3/uL Neut % (Auto) Not Reportable Lymph % (Auto) Not Reportable [place] % (Auto) Not Reportable Eos % (Auto) Not Reportable Baso % (Auto) Not Reportable Lymph # (Auto) Not Reportable [place] # (Auto) Not Reportable Baso # (Auto) Not Reportable Total Counted 100 Seg Neutrophils % 93.0 H (38-70) % Band Neutrophils % 4.0 (3-7) % Lymphocytes % (Manual) 3.0 L (25-45) % Monocytes % (Manual) (2-11) % Metamyelocytes % (-0) % Neutrophils # (Manual) 17840 H (5386-5156) /uL RBC Morphology Normal morphology Hypochromasia ABG pH (7.35-7.45) ABG pCO2 (35-45) mmHg ABG pO2 (80-100) mmHg ABG HCO3 (22-26) mmol/L ABG Total CO2 (21-31) mmol/L ABG O2 Saturation (95-100) % ABG Base Excess (-2-2) mmol/L FiO2 Sodium 140 139 (137-145) mmol/L Potassium 5.4 H 5.0 (3.4-5.1) mmol/L Chloride 96 L 97 L (98-107) mmol/L Carbon Dioxide 36 H 37 H (22-32) mmol/L BUN 28 H 40 H (9-20) mg/dL Creatinine 0.50 L 0.40 L (0.66-1.25) mg/dL Estimated GFR > 60.0 > 60.0 (>60) mL/min BUN/Creatinine Ratio 56.0 H 100.0 H (6-22) Glucose 273 H 137 H D (80-110) mg/dL Lactate (0.7-2.1) mmol/L Calcium 9.9 9.4 (8.4-10.2) mg/dL Magnesium (1.6-2.3) mg/dL Total Bilirubin (0.2-1.3) mg/dL AST (17-59) IU/L ALT (21-72) IU/L Alkaline Phosphatase (38-126) U/L Total Creatine Kinase (55-170) U/L CK-MB (CK-2) CK-MB (CK-2) Rel Index Troponin I (0.01-0.034) ng/mL B-Natriuretic Peptide (<100) Total Protein (6.3-8.2) g/dL Albumin (3.5-5.0) g/dL Globulin (1.7-4.1) g/dL Albumin/Globulin Ratio (1.0-2.8) Procalcitonin (<0.5) ng/mL Urine Color Urine Appearance Urine pH (4.5-8.0) Ur Specific [place] (1.000-1.035) Urine Protein (Negative) Urine Glucose (UA) (Negative) g/dL Urine Ketones (NEGATIVE) Urine Occult Blood (Negative) Urine Nitrate (Negative) Urine Bilirubin (NEGATIVE) Urine Urobilinogen (0.2) E.U./dL Ur Leukocyte Esterase (NEGATIVE) Urine RBC (0-5/HPF) Urine WBC (0-5/HPF) Ur Squamous Epith Cells Calcium Oxalate Crystal (None) Amorphous Sediment Urine Bacteria (None) Urine Mucus (Negative) Ur Culture Indicated? Nasal Screen MRSA (PCR) (Negative) Chlamy pneumoniae PCR (Not Detect) Adenovirus (PCR) (Not Detect) B.parapertussis DNA PCR (Not Detect) Coronavirus OC43 (PCR) (Not Detect) Coronavirus HKU1 (PCR) (Not Detect) Coronavirus 229E (PCR) (Not Detect) Coronavirus NL63 (PCR) (Not Detect) Human Metapneumovir PCR (Not Detect) Influenza Type A (PCR) (Not Detect) Influenza Type B (PCR) (Not Detect) M. pneumoniae (PCR) (Not Detect) Parainfluenza 1 (PCR) (Not Detect) Parainfluenza 2 (PCR) (Not Detect) Parainfluenza 3 (PCR) (Not Detect) Parainfluenza 4 (PCR) (Not Detect) RSV (PCR) (Not Detect) Entero/Rhino (PCR) (Not Detect) Anti-Streptolysin O Ab (< 200) IU/mL 10/18/18 10/18/18 Range/Units 06:12 06:12 WBC (4.5-11.0) X10^3/uL RBC (4.5-5.9) X10^6/uL Hgb (13.5-17.5) g/dL Hct (41-53) % MCV (80-100) fL MCH (26-34) PG MCHC (30-36) % RDW (11.6-14.8) % Plt Count (150-400) X10^3/uL Neut % (Auto) Lymph % (Auto) [place] % (Auto) Eos % (Auto) Baso % (Auto) Lymph # (Auto) [place] # (Auto) Baso # (Auto) Total Counted Seg Neutrophils % (38-70) % Band Neutrophils % (3-7) % Lymphocytes % (Manual) (25-45) % Monocytes % (Manual) (2-11) % Metamyelocytes % (-0) % Neutrophils # (Manual) (3533-9091) /uL RBC Morphology Hypochromasia ABG pH (7.35-7.45) ABG pCO2 (35-45) mmHg ABG pO2 (80-100) mmHg ABG HCO3 (22-26) mmol/L ABG Total CO2 (21-31) mmol/L ABG O2 Saturation (95-100) % ABG Base Excess (-2-2) mmol/L FiO2 Sodium (137-145) mmol/L Potassium (3.4-5.1) mmol/L Chloride (98-107) mmol/L Carbon Dioxide (22-32) mmol/L BUN (9-20) mg/dL Creatinine (0.66-1.25) mg/dL Estimated GFR (>60) mL/min BUN/Creatinine Ratio (6-22) Glucose (80-110) mg/dL Lactate (0.7-2.1) mmol/L Calcium (8.4-10.2) mg/dL Magnesium 2.1 (1.6-2.3) mg/dL Total Bilirubin (0.2-1.3) mg/dL AST (17-59) IU/L ALT (21-72) IU/L Alkaline Phosphatase (38-126) U/L Total Creatine Kinase (55-170) U/L CK-MB (CK-2) CK-MB (CK-2) Rel Index Troponin I (0.01-0.034) ng/mL B-Natriuretic Peptide (<100) Total Protein (6.3-8.2) g/dL Albumin (3.5-5.0) g/dL Globulin (1.7-4.1) g/dL Albumin/Globulin Ratio (1.0-2.8) Procalcitonin < 0.05 (<0.5) ng/mL Urine Color Urine Appearance Urine pH (4.5-8.0) Ur Specific [place] (1.000-1.035) Urine Protein (Negative) Urine Glucose (UA) (Negative) g/dL Urine Ketones (NEGATIVE) Urine Occult Blood (Negative) Urine Nitrate (Negative) Urine Bilirubin (NEGATIVE) Urine Urobilinogen (0.2) E.U./dL Ur Leukocyte Esterase (NEGATIVE) Urine RBC (0-5/HPF) Urine WBC (0-5/HPF) Ur Squamous Epith Cells Calcium Oxalate Crystal (None) Amorphous Sediment Urine Bacteria (None) Urine Mucus (Negative) Ur Culture Indicated? Nasal Screen MRSA (PCR) (Negative) Chlamy pneumoniae PCR (Not Detect) Adenovirus (PCR) (Not Detect) B.parapertussis DNA PCR (Not Detect) Coronavirus OC43 (PCR) (Not Detect) Coronavirus HKU1 (PCR) (Not Detect) Coronavirus 229E (PCR) (Not Detect) Coronavirus NL63 (PCR) (Not Detect) Human Metapneumovir PCR (Not Detect) Influenza Type A (PCR) (Not Detect) Influenza Type B (PCR) (Not Detect) M. pneumoniae (PCR) (Not Detect) Parainfluenza 1 (PCR) (Not Detect) Parainfluenza 2 (PCR) (Not Detect) Parainfluenza 3 (PCR) (Not Detect) Parainfluenza 4 (PCR) (Not Detect) RSV (PCR) (Not Detect) Entero/Rhino (PCR) (Not Detect) Anti-Streptolysin O Ab (< 200) IU/mL Point of Care Testing Glucose POC 143 Imaging Data Chest x-ray: Radiologist's impression: PROCEDURE: XR CHEST 1V INDICATIONS: dyspnea TECHNIQUE: One view of the chest was acquired. COMPARISON: [facility], CR, XR CHEST 2V, 09/22/2018, 9:38. [facility], CT, CT ANGIO CHEST PE PROTOCOL, 07/06/2018, 13:44. [facility], CR, XR CHEST 1V, 10/09/2018, 16:50. FINDINGS: Surgical changes and devices: None. Lungs and pleura: Severe emphysematous change. Developing density in the right upper midlung field likely represents superimposed focal pneumonia. Left basilar density likely represents scarring. Mediastinum: Mediastinal contours appear normal. Heart size is normal. Bones and chest wall: No suspicious bony lesions. Overlying soft tissues appear unremarkable. IMPRESSION: 1. Severe emphysema. 2. Probable developing focal pneumonia in the right upper lobe. Comment: Suggest progress films till clear. Dictated by: Sam Cummings M.D. on 10/14/2018 at 10:43 Approved by: Sam Cummings M.D. on 10/14/2018 at 10:45 ECG Data Attestation: I personally reviewed and interpreted this ECG as follows: ( See below) Interpretation: 12 lead EKG was performed October 14, 2018 at 10:24 a.m., as follows: Regular ventricular rhythm with a rate of 86 beats per minute [place] interval 116 milliseconds QRS duration 91 milliseconds QTC intervals of 372 millisecond normal axis nonspecific ST T wave changes baseline artifact interpretation: Normal sinus rhythm with sinus arrhythmia and short [place] inter norma; no STEMI; borderline EKG as interpreted by ED MD. Discharge Plan Departure Patient Disposition: Admitted As Inpatient Clinical Impression: Acute exacerbation of chronic obstructive pulmonary disease (COPD) Pneumonia Qualifiers: Pneumonia type: due to unspecified organism Laterality: right Lung location: upper lobe of lung Qualified Code(s): J18.1 - Lobar pneumonia, unspecified organism Discharge Date/Time: 10/14/18 13:12 Interventions: ED Discharge Assessment Last Done: 10/14/18 13:11 Referrals: Rubens Olivier MD [Primary Care Provider] - Admit Date/Time: 10/14/18 12:26 Admit Provider: Nel Morgan
[2018-10-14] MEDS: ALBUTEROL 2.5 MG/3 ML NEB (ADULT) INH ×2 (10:33→10:40)
[2018-10-14] MEDS: SODIUM CHLORIDE 0.9% 1,000 ML 1000 ML IV (10:56)
[2018-10-14] MEDS: DEXAMETHASONE 20 MG in SODIUM CHLORIDE 0.9% 50 ML 220 ML IV (10:56)
[2018-10-14 10:58] LABS: Hematocrit 38.1 % (41-53); Hemoglobin 12.1 g/dL (13.5-17.5); Mean Corpuscular HGB Conc 31.7 % (30-36); Mean Corpuscular Hemoglobin 28.8 PG (26-34); Mean Corpuscular Volume 91.1 fL (80-100); Platelet Count 419 X10^3/uL (150-400); Red Blood Cell Count 4.18 X10^6/uL (4.5-5.9); Red Cell Distribution Width 15.6 % (11.6-14.8); White Blood Cell Count 18.5 X10^3/uL (4.5-11.0)
[2018-10-14 10:59] LABS: Add Manual Diff / Slide Review YES
[2018-10-14 11:00] LABS: Alanine Aminotransferase 21 IU/L (21-72); Albumin 3.6 g/dL (3.5-5.0); Albumin Globulin Ratio 1.1 (1.0-2.8); Alkaline Phosphatase 91 U/L (38-126); Aspartate Aminotransferase 15 IU/L (17-59); BUN Creatinine Ratio 47.5 (6-22); Bilirubin Total 0.3 mg/dL (0.2-1.3); Blood Urea Nitrogen 19 mg/dL (9-20); Calcium 9.8 mg/dL (8.4-10.2); Chloride 93 mmol/L (98-107); Creatine Kinase < 20 U/L (55-170); Estimated Glomerular Filt Rate > 60.0 mL/min (>60); Globulin 3.3 g/dL (1.7-4.1); Glucose 202 mg/dL (80-110); HEMOLYSIS < 15 (0-50); Potassium 4.6 mmol/L (3.4-5.1); Sodium 138 mmol/L (137-145); Total Protein 6.9 g/dL (6.3-8.2)
[2018-10-14 11:08] LABS: Carbon Dioxide 40 mmol/L (22-32)
[2018-10-14 11:11] LABS: B Type Natriuretic Peptide < 100 (<100); Troponin I < 0.012 ng/mL (0.01-0.034)
[2018-10-14 11:24] LABS: Neutrophils Absolute Manual 17390 /uL (3000-5900); Total Cells Counted 100
[2018-10-14 11:25] LABS: RBC Morphology Normal Morphology
[2018-10-14] MEDS: levoFLOXacin 500 MG/100 ML PIGGYBACK 100 MG IV (12:22)
--- NOTE | 2018-10-14 13:28 | PC.NURSE ---
Day shift: Pt on unit at approx 1300 from ED. SOB when supine. On 3L NC w/ SpO2 96%. Denies any pain. ABD is distended from past surgery. Oriented to room and call light. High fall risk. Agrees to not get OOB w/o help from staff. Bed alarm on.
[2018-10-14 15:02] LABS: Procalcitonin 0.08 ng/mL (<0.5)
[2018-10-14] MEDS: LORazepam 0.5 MG TABLET PO (16:04)
[2018-10-14] MEDS: guaiFENesin ER 600 MG TAB 1200 MG PO ×2 (16:06→23:50)
[2018-10-14] MEDS: MORPHINE 2 MG/ML INJ IV (16:31)
[2018-10-14 16:39] LABS: HCO3 ABG 33 mmol/L (22-26); PCO2 ABG 49.5 mmHg (35-45); PO2 ABG 90 mmHg (80-100); TCO2 ABG 35 mmol/L (21-31); pH ABG 7.44 (7.35-7.45)
[2018-10-14 16:40] LABS: Fractionated Inspired Oxygen 0.32; Oxygen Saturation ABG 97 % (95-100)
--- NOTE | 2018-10-14 17:21 | RT ---
Mr. Yanes is currently eating his dinner and refused the first duoneb which was scheduled for 1700. However, his next due is at 1900 and he has agreed to take a duoneb after he finishes eating. While eating, he is maintaining a sat of 95% with a RR of 20.
[2018-10-14] MEDS: methylPREDNISolone 125 MG/2 ML VIAL 60 MG IV (17:22)
[2018-10-14] MEDS: ITRACONAZOLE 200 MG 200 EACH PO (17:28)
[2018-10-14] MEDS: PIPERACILLIN-TAZO 3.375 GM/50 ML FROZ.PIGGY IV ×2 (17:33→23:50)
[2018-10-14 17:50] LABS: Lactate (Lactic Acid) 3.1 mmol/L (0.7-2.1)
--- NOTE | 2018-10-14 17:50 | PC.NURSE ---
Addendum entered by Nano Gautam R.N. 10/14/18 23:01: 2300 - Dr. Morgan notified that Pt declining to wear trilogy. Original Note: Addendum entered by Nano Gautam R.N. 10/14/18 22:44: 2240 - Pt refusing to wear trilogy. Breathing treatment provided by RT. Continues on 3L NC at this time. Monitor. Original Note: Addendum entered by Nano Gautam R.N. 10/14/18 21:49: 2145 - STRATEGY INTERN, Jg, notified that Lactate level has increased to 4.6 from the previous 3.1. Awaiting orders. Original Note: 1700 - Pt brought down from Acute care. O2 at 3L, sats 95%, SOB at rest, mildly diaphoretic, LE mottling to knees and feet, LS Course throughout, Rhonci. Reports productive cough, with light green sputum. Pt states that the morphine significantly improved work of breathing and that he would like to attempt meal. Encouraged slow intake with rest breaks. Steroid given, Abx infusion initiated. Call light in reach.
[2018-10-14] MEDS: FLUTICASONE/SALMETEROL 250/50 14 PUFF DISKUS INH (17:57)
[2018-10-14 18:47] LABS: Bilirubin Urine UA NEGATIVE (NEGATIVE); Color Urine UA YELLOW; Glucose Urine UA 2+ g/dL (Negative); Ketones Urine UA NEGATIVE (NEGATIVE); Leukocyte Esterase Urine UA TRACE (NEGATIVE); Nitrite Urine UA NEGATIVE (Negative); Occult Blood Urine UA 2+ (Negative); Protein Urine UA NEGATIVE (Negative); Urobilinogen Urine UA 0.2 E.U./dL (0.2); pH Urine UA 6.5 (4.5-8.0)
[2018-10-14 18:56] LABS: Appearance Urine UA Slightly Cloudy
[2018-10-14 18:58] LABS: Amorphous Sediment Urine 1+; Bacteria Urine Moderate (10-30); Calcium Oxalate Crystals Urine Moderate; RBC Urine 10-30/HPF (0-5/HPF); Squamous Epithelial Cell Urine 1-5 /HPF; WBC Urine 5-10/HPF (0-5/HPF)
--- NOTE | 2018-10-14 18:58 | RT ---
Patient did 15 minutes total of CPT by his home vest equipment. The first 5 minutes were at 35% strength, the next five at 40% and the final five at 55%. Tolerated well throughout though short of breath moving up to a sitting position and the CPT made him short as breath as well. Took two minute rests in between each 5 minute session. Set up patient's Trilogy at bedside as well and he is currently using the mouthpiece to passively sip on it. Not sure if he will try to wear the mask [id number] as he had a bad experience at [facility].
[2018-10-14 18:59] LABS: Culture Indicated Urine Specimen Cultured; Mucus Urine 1+ (Negative)
[2018-10-14 19:58] LABS: Adenovirus Not Detected (Not Detect); Bordetella pertussis Not Detected (Not Detect); Chlamydophila pneumoniae Not Detected (Not Detect); Coronavirus 229E Not Detected (Not Detect); Coronavirus HKU1 Not Detected (Not Detect); Coronavirus NL 63 Not Detected (Not Detect); Coronavirus OC43 Not Detected (Not Detect); Human Metapneumovirus Not Detected (Not Detect); Human Rhinovirus/Enterovirus Not Detected (Not Detect); Influenza A Not Detected (Not Detect); Influenza B Not Detected (Not Detect); Mycoplasma pneumoniae Not Detected (Not Detect); Parainfluenza Virus 1 Not Detected (Not Detect); Parainfluenza Virus 2 Not Detected (Not Detect); Parainfluenza Virus 3 Not Detected (Not Detect); Parainfluenza Virus 4 Not Detected (Not Detect); Respiratory Syncytial Virus Not Detected (Not Detect)
[2018-10-14 20:40] LABS: Lactate (Lactic Acid) 4.6 mmol/L (0.7-2.1)
[2018-10-14 21:29] LABS: Reflexed Lactate in 2 Hours Y
--- NOTE | 2018-10-14 21:31 | PM.HP.1 ---
History of Present Illness Date Patient Seen: 10/14/18 Time Patient Seen: 20:10 Chief complaint: SOB, COPD Narrative: This is a 5-year-old gentleman who is a former smoker with a history emphysema, coronary artery disease 4, diabetes, peripheral vascular disease, hyperlipidemia presents today with progressive dyspnea and increasing chest congestion. Patient was seen and evaluated for similar complaint on 10/09/2017 with the patient received nebulizer therapy and steroids at which time he improved well enough he was discharged home. Chest x-ray at that time noted emphysema changes but did not identify any infiltrates. The patient began feeling more congestion and more dyspneic yesterday and reports being up multiple times during the night for bowel movements which he reported as exhausting. He is on chronic home O2 at 3 liters/minute and he describes prolonged recovery than typical after activity. He did receive a nebulizer treatment at 2:00 in the morning for dyspnea however the patient states he woke this morning dyspneic and air hungry withhis own pulse oximeter which showed a reading of 88. He summoned staff at his care facility and the patient was subsequently sent to the ER for evaluation. Patient received oxygen at 4 liters/minute and nebulizer treatments en route to the hospital. The patient denies any complaints fever chills, headaches or dizziness nasal congestion or sore throat. He has a chronic cough that has been worsening feeling more congestion. He denies chest pain or palpitations. Has no complaints of nausea vomiting and reports having 3 bowel movements last night and 1 this morning. The patient arrived in the ER at 10:25 a.m. at which time he is found to be afebrile at 97.8, heart rate 90, blood pressure 145/97, respiratory rate of 24 saturating at 97% on 4 liters/minute nasal cannula. The patient received multiple nebulizer treatments in the ER and has been on a very slow steroid taper per his sales coach. Twelve lead EKG shows a sinus rhythm with a rate of 86 without ectopy, ST or T-wave changes and unchanged from prior EKG done on 10/09/2017. On laboratory analysis he is on chronic steroid therapy and has a white count of 18.5 mildly anemic with a hemoglobin of 12.1 and hematocrit of 38.1 and platelets of 419. He does have an elevated lactate at 4.5 however negative procalcitonin and 0.08. He has a negative CK panel and a troponin less than 0 0.012 and BNP less than 100. His chemistries are within normal limits save for glucose at 2:02 a.m.. Chest x-ray reveals severe emphysema with right upper lobe infiltrates not present on previous exam of 10/09/2018. The patient was started on levofloxacin and given a 1 L fluid bolus. He is admitted to the hospital for exacerbation of COPD. Patient History Medical History Anxiety (Chronic Unknown) Peripheral vascular disease (Chronic Unknown) Hx of small bowel obstruction (Resolved 03/2015) Hyperlipemia (Chronic Unknown) Nontuberculous mycobacterial infection (Chronic 2014) Coronary artery disease (Chronic Unknown) History of colon cancer (Resolved ~2010) BPH (benign prostatic hyperplasia) (Chronic Unknown) COPD (chronic obstructive pulmonary disease) (Chronic Unknown) Diabetes (Chronic Unknown) COPD (chronic obstructive pulmonary disease) (Inactive) Dependent edema (Inactive) Surgical History H/O cardiac catheterization (Resolved 2010) S/P small bowel resection (Resolved 03/2015) Hx of hernia repair (Resolved 2008) S/P colon resection (Resolved 2010) Hx of cataract surgery (Resolved 2014) Family History Mother Cancer Father Congestive heart failure Social History household members: spouse and family Smoking Status: Former smoker alcohol intake: current Family & Social History Family History Mother Cancer Father Congestive heart failure Social History: household members spouse,family Prior Living Arrangements 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 Occupation: Smoking: Alcohol: Substance use: Denies recreational pharmaceuticals, herbals or cannabis use Advanced directives: Discussion has been held regarding advanced directives in relation to severity of illness. The patient is elected to be DNR/DNI. His is designated as his surrogate decision maker. Meds Home Medications Medication Instructions Recorded Confirmed Type cholecalciferol (vitamin D3) 1,000 unit PO DAILY #0 02/07/17 10/09/18 History [Vitamin D3] guaifenesin [Mucinex] 600 mg PO Q12H #0 02/07/17 10/09/18 History multivitamin [Multiple Vitamins] 1 tab PO DAILY #0 02/07/17 10/09/18 History Spiriva with HandiHaler 1 puff INH DAILY #0 08/03/17 10/09/18 History Advair Diskus 1 inh INHALATION Q12H 01/26/18 10/09/18 History Spacer: Inhaler Spacer Device 1 ea INHALATION DIRECTED 01/26/18 10/09/18 History albuterol sulfate 3 ml INHALATION TID 01/26/18 10/09/18 History aspirin 81 mg PO DAILY 01/26/18 10/09/18 History ipratropium-albuterol 1 dose INHALATION Q6H PRN 01/26/18 10/09/18 History tamsulosin [Flomax] 0.4 mg PO DAILY 07/06/18 10/09/18 History atorvastatin 20 mg tablet 20 mg PO BEDTIME #90 tab 08/20/18 10/09/18 Rx furosemide 40 mg tablet 40 mg PO DAILY PRN #30 tab 08/21/18 10/09/18 Rx lorazepam 0.5 mg PO TID #60 tab 09/25/18 10/09/18 Rx albuterol sulfate [Proventil HFA] 2 puff INHALATION Q4H PRN 10/09/18 10/09/18 History bisacodyl 5 - 10 mg PO PRN PRN 10/09/18 10/09/18 History bisacodyl 10 mg UT PRN PRN 10/09/18 10/09/18 History itraconazole 400 mg PO BID 10/09/18 10/09/18 History magnesium hydroxide [Milk of 30 ml PO PRN PRN 10/09/18 10/09/18 History Magnesia] metformin 1,000 mg PO BID 10/09/18 10/09/18 History pantoprazole 40 mg PO DAILY 10/09/18 10/09/18 History prednisone 10 mg PO DAILY 10/09/18 10/09/18 History prednisone 40 mg PO DAILY #28 tab 10/09/18 Rx sodium phosphates [Fleet Enema] 1 ea UT PRN PRN 10/09/18 10/09/18 History Allergies Allergy/AdvReac Type Severity Reaction Status Date / Time felodipine [FELODIPINE] Allergy Intermediate SWELLING Verified 10/09/18 16:49 Exam Vital Signs (past 8 hours): - 10/14/18 13:53 10/14/18 15:00 10/14/18 15:20 Temperature 97.9 F 97.5 F L Pulse Rate 83 82 Respiratory Rate 20 24 Blood Pressure 147/73 H 142/85 H Pulse Oximetry 99 96 96 10/14/18 17:00 10/14/18 17:57 10/14/18 19:00 Temperature 97.2 F L Pulse Rate 87 83 Respiratory Rate 22 25 H Blood Pressure 134/70 Pulse Oximetry 95 97 Fraction of Inspired Oxygen 28 Oxygen Delivery Method Nasal Cannula Oxygen Flow Rate 3 Narrative Exam Narrative: GENERAL APPEARANCE: well developed, well nourished, with moderate work of breathing HEAD: Normocephalic, atraumatic, no scalp lesions EYES: pupils equal, round, reactive to light and accommodation, sclera anicteric, extraocular movement intact without nystagmus EARS: normal external structures, no ear pain NOSE: nares patent, no lesions, sinuses non tender to percussion, no rhinorrhea ORAL CAVITY: mucosa moist without lesions or exudate, palate normal, tongue in midline. THROAT: Posterior pharynx without inflammation or exudate, uvula midline. NECK/THYROID: neck supple, no jugular venous distention an upright seated position, no carotid bruit, no thyromegaly, thyroid nontender, trachea midline. LYMPH NODES: no cervical or supraclavicular lymphadenopathy. SKIN: warm and dry, no visible lesions, no rashes, good turgor. HEART: regular rate and rhythm, no murmurs, rubs, gallops, brisk capillary refill, trace bilateral pedal edema LUNGS: Breath sounds coarse centrally and very diminished bilateral bases, prolonged expiratory phase, productive cough present, nail beds pale CHEST: Increased AP diameter, symmetrical expansion, no supraclavicular or intercostal retractions, no pain to AP and lateral compression. EXTREMITIES: moves all extremities, strength is 5/5 and symmetrical, 1+ dorsalis pedis pulses NEUROLOGIC: non focal, motor strength normal upper and lower extremities, sensation diminished bilateral forefoot with tingling, cranial nerves II-XII grossly intact, hearing grossly normal to speech. PSYCH: alert, oriented, cognitive function intact, good eye contact, stable mood with congruent affect Objective Labs Result Diagrams: 10/14/18 10:40 10/14/18 10:40 Labs: Laboratory Results - last 24 hr 10/14/18 10/14/18 10/14/18 10:40 10:40 10:40 WBC 18.5 H RBC 4.18 L Hgb 12.1 L Hct 38.1 L MCV 91.1 MCH 28.8 MCHC 31.7 RDW 15.6 H Plt Count 419 H Neut % (Auto) Not Reportable Lymph % (Auto) Not Reportable [place] % (Auto) Not Reportable Eos % (Auto) Not Reportable Baso % (Auto) Not Reportable Lymph # (Auto) Not Reportable [place] # (Auto) Not Reportable Baso # (Auto) Not Reportable Total Counted 100 Seg Neutrophils % 86.0 H Band Neutrophils % 8.0 H Lymphocytes % (Manual) 1.0 L Monocytes % (Manual) 3.0 Metamyelocytes % 2.0 H Neutrophils # (Manual) 77307 H RBC Morphology Normal morphology ABG pH ABG pCO2 ABG pO2 ABG HCO3 ABG Total CO2 ABG O2 Saturation ABG Base Excess FiO2 Sodium 138 Potassium 4.6 Chloride 93 L Carbon Dioxide 40 H* BUN 19 Creatinine 0.40 L Estimated GFR > 60.0 BUN/Creatinine Ratio 47.5 H Glucose 202 H Lactate Calcium 9.8 Total Bilirubin 0.3 AST 15 L ALT 21 Alkaline Phosphatase 91 Total Creatine Kinase < 20 L CK-MB (CK-2) TNP CK-MB (CK-2) Rel Index TNP Troponin I < 0.012 B-Natriuretic Peptide < 100 Total Protein 6.9 Albumin 3.6 Globulin 3.3 Albumin/Globulin Ratio 1.1 Procalcitonin 0.08 Urine Color Urine Appearance Urine pH Ur Specific Colon Urine Protein Urine Glucose (UA) Urine Ketones Urine Occult Blood Urine Nitrate Urine Bilirubin Urine Urobilinogen Ur Leukocyte Esterase Urine RBC Urine WBC Ur Squamous Epith Cells Calcium Oxalate Crystal Amorphous Sediment Urine Bacteria Urine Mucus Ur Culture Indicated? Nasal Screen MRSA (PCR) Chlamy pneumoniae PCR Adenovirus (PCR) B.parapertussis DNA PCR Coronavirus OC43 (PCR) Coronavirus HKU1 (PCR) Coronavirus 229E (PCR) Coronavirus NL63 (PCR) Human Metapneumovir PCR Influenza Type A (PCR) Influenza Type B (PCR) M. pneumoniae (PCR) Parainfluenza 1 (PCR) Parainfluenza 2 (PCR) Parainfluenza 3 (PCR) Parainfluenza 4 (PCR) RSV (PCR) Entero/Rhino (PCR) 10/14/18 10/14/18 10/14/18 16:25 17:01 17:25 WBC RBC Hgb Hct MCV MCH MCHC RDW Plt Count Neut % (Auto) Lymph % (Auto) [place] % (Auto) Eos % (Auto) Baso % (Auto) Lymph # (Auto) [place] # (Auto) Baso # (Auto) Total Counted Seg Neutrophils % Band Neutrophils % Lymphocytes % (Manual) Monocytes % (Manual) Metamyelocytes % Neutrophils # (Manual) RBC Morphology ABG pH 7.44 ABG pCO2 49.5 H ABG pO2 90 ABG HCO3 33 H ABG Total CO2 35 H ABG O2 Saturation 97 ABG Base Excess 9.0 H FiO2 0.32 Sodium Potassium Chloride Carbon Dioxide BUN Creatinine Estimated GFR BUN/Creatinine Ratio Glucose Lactate 3.1 H Calcium Total Bilirubin AST ALT Alkaline Phosphatase Total Creatine Kinase CK-MB (CK-2) CK-MB (CK-2) Rel Index Troponin I B-Natriuretic Peptide Total Protein Albumin Globulin Albumin/Globulin Ratio Procalcitonin Urine Color Urine Appearance Urine pH Ur Specific Colon Urine Protein Urine Glucose (UA) Urine Ketones Urine Occult Blood Urine Nitrate Urine Bilirubin Urine Urobilinogen Ur Leukocyte Esterase Urine RBC Urine WBC Ur Squamous Epith Cells Calcium Oxalate Crystal Amorphous Sediment Urine Bacteria Urine Mucus Ur Culture Indicated? Nasal Screen MRSA (PCR) Negative for mrsa Chlamy pneumoniae PCR Adenovirus (PCR) B.parapertussis DNA PCR Coronavirus OC43 (PCR) Coronavirus HKU1 (PCR) Coronavirus 229E (PCR) Coronavirus NL63 (PCR) Human Metapneumovir PCR Influenza Type A (PCR) Influenza Type B (PCR) M. pneumoniae (PCR) Parainfluenza 1 (PCR) Parainfluenza 2 (PCR) Parainfluenza 3 (PCR) Parainfluenza 4 (PCR) RSV (PCR) Entero/Rhino (PCR) 10/14/18 10/14/18 10/14/18 18:30 18:30 20:22 WBC RBC Hgb Hct MCV MCH MCHC RDW Plt Count Neut % (Auto) Lymph % (Auto) [place] % (Auto) Eos % (Auto) Baso % (Auto) Lymph # (Auto) [place] # (Auto) Baso # (Auto) Total Counted Seg Neutrophils % Band Neutrophils % Lymphocytes % (Manual) Monocytes % (Manual) Metamyelocytes % Neutrophils # (Manual) RBC Morphology ABG pH ABG pCO2 ABG pO2 ABG HCO3 ABG Total CO2 ABG O2 Saturation ABG Base Excess FiO2 Sodium Potassium Chloride Carbon Dioxide BUN Creatinine Estimated GFR BUN/Creatinine Ratio Glucose Lactate 4.6 H Calcium Total Bilirubin AST ALT Alkaline Phosphatase Total Creatine Kinase CK-MB (CK-2) CK-MB (CK-2) Rel Index Troponin I B-Natriuretic Peptide Total Protein Albumin Globulin Albumin/Globulin Ratio Procalcitonin Urine Color Yellow Urine Appearance Slightly cloudy Urine pH 6.5 Ur Specific Colon 1.010 Urine Protein Negative Urine Glucose (UA) 2+ H Urine Ketones Negative Urine Occult Blood 2+ H Urine Nitrate Negative Urine Bilirubin Negative Urine Urobilinogen 0.2 Ur Leukocyte Esterase Trace H Urine RBC 10-30/hpf H Urine WBC 5-10/hpf H Ur Squamous Epith Cells 1-5 /hpf Calcium Oxalate Crystal Moderate H Amorphous Sediment 1+ Urine Bacteria Moderate (10-30) H Urine Mucus 1+ H Ur Culture Indicated? Specimen cultured Nasal Screen MRSA (PCR) Chlamy pneumoniae PCR Not detected Adenovirus (PCR) Not detected B.parapertussis DNA PCR Not detected Coronavirus OC43 (PCR) Not detected Coronavirus HKU1 (PCR) Not detected Coronavirus 229E (PCR) Not detected Coronavirus NL63 (PCR) Not detected Human Metapneumovir PCR Not detected Influenza Type A (PCR) Not detected Influenza Type B (PCR) Not detected M. pneumoniae (PCR) Not detected Parainfluenza 1 (PCR) Not detected Parainfluenza 2 (PCR) Not detected Parainfluenza 3 (PCR) Not detected Parainfluenza 4 (PCR) Not detected RSV (PCR) Not detected Entero/Rhino (PCR) Not detected Assessment & Plan Assessment & Plan narrative: The patient is admitted to the hospital for severe respiratory distress related to exacerbation of COPD pneumonia and UTI. 1. Acute respiratory failure -right upper lobe pneumonia with acute on chronic COPD exacerbation, on continuous home oxygen at 3 L/M -P/F ratio is 281, pCO2 is 49.5 -treatment is per pneumonia and COPD exacerbation below 2. Right upper lobe pneumonia, acute -patient was seen on for exasperation on 10/09/2018 as well as again today, chest x-ray today reveals new right upper lobe infiltrates not present on prior visit -patient's white count 18.5 however he is on chronic steroid therapy, he will be covered with Zosyn 3.375 g every 6 hr. -SOFA score is low at 2 -procalcitonin is negative at 0.08 however lactate is positive at 4.05. -patient with excessive work breathing requiring serial nebulizer treatments and decadron 20 mg in the ED with improvment in work of breathing -RT to consult, oxygen per nasal cannula with SpO2 goal greater than 89% -We are unable to fluid resuscitate the patient further due to pulmonary congestion risk of worsening respiratory status, with a chest x-ray. Reveal pulmonary vascular congestion. I discussed plan of care with Dr. Morgan in light that the patient is improving, we will discontinue serial lactates and recheck in the morning. -respiratory PCR panel, sputum culture, antistreptolysin antibody, and urine for Legionella antigen are ordered 3. Acute exacerbation of COPD -emphysema with increased work of breathing, on chronic home O2 at 3 liters/minute -duo nebs every 4 hr with albuterol every 2 hr as needed -patient has been on itraconazole and prednisone taper as prescribed for ABPA, will continue itraconazole, methylprednisolone 60 mg IV every 8 hr. -Continue DuoNeb every 4 hours while awake and every 2 hours as needed -coarse breath sounds essentially very diminished bibasilar, patient is prescribed guaifenesin and CPT initiated. 4. Acute tracheobronchitis on chronic allergic bronchopulmonary aspergillosis, present on admission. Active. -Sputum culture grew mold likely Aspergillosis as previously grown on last admission and Stenotrophomonas sensitive to levofloxacin -will continue itraconazole and prednisone which were started for likely ABPA by his sales coach and infectious disease, Dr. Moore and Dr. Milligan, respectively. -Continued Levaquin 750 mg daily 5. Urinary tract infection, present on admission, acute -the patient has an indwelling Paula catheter related to BPH with episodes of acute urinary retention that was changed in the emergency department on 10/08/2018, urinalysis was not completed at that time -UA reveals positive glucose positive blood trace leukocyte esterase, WBCs and moderate bacteria with calcium oxalate crystals, sent for culture -the patient is already on levofloxacin, will await sensitivities 6. Benign prostatic hypertrophy, chronic, stable -patient with indwelling Paula catheter as above -Flomax is continue daily 7. Non insulin-dependent diabetes mellitus type 2, present on admission. Stable. -Hemoglobin A1C 7.0% 09/2018. -Metformin is held and blood sugars will be checked ACHS and covered with medium range sliding scale insulin -Continued carbohydrate consistent diet. 8. Coronary artery disease, chronic, stable -no complaints of chest pain, 12 lead EKG is sinus rhythm without ectopy ST or T-wave changes, unchanged tracing on 10/09/2018 -BNP is less than 100 however chest x-ray does appear to reflect pulmonary vascular congestion -patient has been on Lasix 40 mg as needed at his nursing facility. Last dose is unknown -will recheck an echocardiogram last echo completed in February of 2018 with a finding of an EF of 55-60% but unable to determine presence of pulmonary artery hypertension -initial troponin is negative at less than 0.012 will check troponin again in the morning -continue aspirin 81 mg daily The patient is admitted to the hospital due to severity of symptoms and high risk of complications. Patient is admitted as an inpatient with expected length of stay greater 2 midnights. Time Spent With Patient Time with patient: 25 - 35 minutes Scores GCS [place] coma scale eye opening: Spontaneous [place] coma scale verbal response: Orientated Mohinder coma scale motor response: Obey commands [place] coma scale total score: 15 SOFA PaO2/FIO2: < 300 mmHg Platelets: >= 150 Bilirubin: < 1.2 mg/dL Hypotension: MAP >= 70 mmHg Mohinder Coma Scale: 15 Renal: < 1.2 mg/dL SOFA Score: 2
[2018-10-14] MEDS: ATORVASTATIN 20 MG TABLET PO (22:48)
[2018-10-14] MEDS: HEPARIN 5,000 UNIT/ML VIAL 5000 UNIT SUBCUT (22:49)
[2018-10-14] MEDS: INSULIN ASPART 100 UNIT/ML INSULN PEN SUBCUT (23:51)
[2018-10-15] VITALS (12 sets, daily range): BP systolic 127–138; BP diastolic 61–81; PULSE 69–98; RESP 15–28; TEMP 35.9–36.9; O2SAT 92–98
[2018-10-15 00:26] LABS: Reflexed Lactate in 2 Hours Y
[2018-10-15] MEDS: methylPREDNISolone 125 MG/2 ML VIAL 60 MG IV ×2 (01:37→08:41)
[2018-10-15] MEDS: ALBUTEROL/IPRATROPIUM 3 ML AMPUL INH ×3 (04:32→14:55)
[2018-10-15 05:15] LABS: Lactate (Lactic Acid) 3.1 mmol/L (0.7-2.1)
[2018-10-15 05:19] LABS: Blood Urea Nitrogen 20 mg/dL (9-20); Calcium 9.9 mg/dL (8.4-10.2); Carbon Dioxide 38 mmol/L (22-32); Chloride 95 mmol/L (98-107); Estimated Glomerular Filt Rate > 60.0 mL/min (>60); Glucose 209 mg/dL (80-110); HEMOLYSIS < 15 (0-50); Sodium 139 mmol/L (137-145)
[2018-10-15 05:24] LABS: Hematocrit 34.5 % (41-53); Mean Corpuscular HGB Conc 31.7 % (30-36); Mean Corpuscular Hemoglobin 28.8 PG (26-34); Mean Corpuscular Volume 90.6 fL (80-100); Platelet Count 393 X10^3/uL (150-400); Red Blood Cell Count 3.81 X10^6/uL (4.5-5.9); Red Cell Distribution Width 15.6 % (11.6-14.8); White Blood Cell Count 11.3 X10^3/uL (4.5-11.0)
[2018-10-15 05:28] LABS: Add Manual Diff / Slide Review YES
[2018-10-15 05:31] LABS: Troponin I < 0.012 ng/mL (0.01-0.034)
[2018-10-15 05:35] LABS: Procalcitonin < 0.05 ng/mL (<0.5)
[2018-10-15 05:50] LABS: B Type Natriuretic Peptide < 100 (<100)
[2018-10-15] MEDS: PIPERACILLIN-TAZO 3.375 GM/50 ML FROZ.PIGGY IV ×3 (06:06→17:30)
[2018-10-15 06:07] LABS: Neutrophils Absolute Manual 10622 /uL (3000-5900); Total Cells Counted 100
[2018-10-15 06:10] LABS: Hypochromasia 1+
--- NOTE | 2018-10-15 06:33 | PC.NURSE ---
Noc Note Pt alert and forgetful, in good spirits this shift. Remains on 3l, NC sating mid 90's. Pt denies pain, 1-2+ edema to bilat ankles. Paula cath patent with tea colored urine. LS Rhonchi with moist productive cough, pt swollows sputum, pursed lip breathing noted, SOB with any exertion. Coccyx area is red and blanchable with 0.5cm open area to the right of the gluteal cleft. Pt able to make adjustments to position independently in bed. Pt recieved IV ABX as ordered.
[2018-10-15] MEDS: ITRACONAZOLE 200 MG 200 EACH PO ×2 (08:40→17:05)
[2018-10-15] MEDS: guaiFENesin ER 600 MG TAB 1200 MG PO ×2 (08:40→20:51)
[2018-10-15] MEDS: ASPIRIN EC 81 MG TABLET PO (08:40)
[2018-10-15] MEDS: TAMSULOSIN 0.4 MG CAPSULE PO (08:41)
[2018-10-15] MEDS: HEPARIN 5,000 UNIT/ML VIAL 5000 UNIT SUBCUT ×2 (08:41→20:50)
[2018-10-15] MEDS: PANTOPRAZOLE 40 MG TABLET PO (08:41)
[2018-10-15] MEDS: INSULIN ASPART 100 UNIT/ML INSULN PEN SUBCUT ×5 (08:42→20:51)
[2018-10-15] MEDS: SODIUM CHLORIDE 0.9% FLUSH 10 ML IV ×2 (08:59→20:52)
[2018-10-15] MEDS: LORazepam 2 MG/ML SYRINGE 0.5 MG IV ×2 (08:59→15:44)
--- NOTE | 2018-10-15 08:59 | CM.DANOTE ---
DCP: Case received, EMR reviewed and met with patient. Introduced self and role. DCP template completed with information currently available. Patient is a 68 year old male who admitted yesterday afternoon to the care of the hospitalist team. PCP: Dr. Olivier. Payer:confirmed: Medicare/[employer] for [employer]. Patient came to hospital via ambulance due to increased shortness of breath. Patient has diagnosis of Pneumonia. Met briefly with patient. Stated that he had recently been at [facility] after a hospital stay. Lives at home with his , and his grandson. Uses a FWW, and [facility]. Does not drive. P: DCP will follow closely and monitor progress here in hospital. Poppy Koehler RN/Engineer Technical Staff
[2018-10-15 09:04] LABS: Reflexed Lactate in 2 Hours Y
[2018-10-15] MEDS: FLUTICASONE/SALMETEROL 250/50 14 PUFF DISKUS INH (09:13)
[2018-10-15 10:01] LABS: Lactate 2HR (Lactic Acid Rflx) 4.6 mmol/L (0.7-2.1)
--- NOTE | 2018-10-15 10:43 | PT.IIE ---
Current Diagnoses Chronic obstructive pulmonary disease with (acute) exacerbation (10/14/18) Chronic obstructive pulmonary disease, unspecified (10/14/18) Surgical History (Last Reviewed 10/14/18 @ 21:35 by NISA Kincaid) H/O cardiac catheterization (Resolved 2010) S/P small bowel resection (Resolved 03/2015) Hx of hernia repair (Resolved 2008) S/P colon resection (Resolved 2010) Hx of cataract surgery (Resolved 2014) Medical History (Last Reviewed 10/14/18 @ 21:35 by NISA Kincaid) Anxiety (Chronic Unknown) Peripheral vascular disease (Chronic Unknown) Hx of small bowel obstruction (Resolved 03/2015) Hyperlipemia (Chronic Unknown) Nontuberculous mycobacterial infection (Chronic 2014) Coronary artery disease (Chronic Unknown) History of colon cancer (Resolved ) BPH (benign prostatic hyperplasia) (Chronic Unknown) COPD (chronic obstructive pulmonary disease) (Chronic Unknown) Diabetes (Chronic Unknown) COPD (chronic obstructive pulmonary disease) (Inactive) Dependent edema (Inactive) Physical Therapy Inpatient Evaluation/Re-Eval M1 PT/OT-IP Prior Functional Status Start: 10/15/18 10:19 Freq: NEEDED Status: Active Protocol: Document 10/15/18 10:00 (Rec: 10/15/18 10:43 [email or web address]) Medical Review Prior Functional Status Medical History Reviewed Yes Communication No deficits noted. Able to make needs known. Mobility and Gait Pt was d/c to [facility] since last admission in Sep. Pt stated he was able to amb 100 ft couple times a day but progressively declined to 30 ft a day with his 4WW. Pt did need nursing staff from [facility] to supervise/ SBA. Activities of Daily Living and IADL's 1 PA CGA/SBA for ADLs and min to mod A for IADLs from nursing staff from [facility]. Social History Household Members spouse family Living Arrangements Skilled Nurse Facility Number of Stairs To Enter/Railing? Ramp to enter the house Home Environment Standard Height Toilet High Toilet Walk in Shower Home Equipment Four Wheel Walker Manual Wheelchair Power Wheelchair/Scooter Employment Status Retired Additional Social History Comment Pt's used to live in a one level house with his grandson who is able to assist at times . Pt was admitted to for 2 weeks due to acute PNA since early Sep. He was then d/c to [facility] for cont rehab and to address his medical condition. Pt readmitted to on due to acute exacerbation of COPD, SOB and R upper lobe PNA . Pt states he used 3L O2 in [facility] and was able to 100 ft for multiple times a day at first but slowly decline to 30 ft. He reports he experienced increased weakness and SOB lately. M2 PT-IP Current Condition Start: 10/15/18 10:19 Freq: NEEDED Status: Active Protocol: Document 10/15/18 10:00 HH (Rec: 10/15/18 10:43 [email or web address]) Physical Therapy Current Condition Current Condition Evaluation Date 10/15/18 Treatment Diagnosis Acute COPD, PNA, impaired gait and reduced activity tolerance. Onset Date 10/14/18 Weight Bearing Status Weight Bearing Status Weight Bear as Tolerated M3 PT-IP Subjective Start: 10/15/18 10:19 Freq: NEEDED Status: Active Protocol: Document 10/15/18 10:00 HH (Rec: 10/15/18 10:43 [email or web address]) Subjective Physical Therapy Visit Type Type Initial Evaluation Visit Start Time 10:00 Visit Stop Time 10:20 Total Visit Minutes 15 Notes Bed rest activity order. 3L O2 NC in place. Number of BLINDSTITCH LAPEL PADDER Visits 0 Physical Therapy Visit Comments Patient Comments I feel better today and i had breathing treatment a bit earlier. Patient Goals To return [facility] to cont rehab. Therapy Pain Assessment Pain Present Pain Present Denied Pain M4 PT-IP Mobility and Gait Start: 10/15/18 10:19 Freq: NEEDED Status: Active Protocol: Document 10/15/18 10:00 HH (Rec: 10/15/18 10:43 [email or web address]) PT-Bed Mobility Assessment Supine to Sit Supine to Sit Contact Guard Assistance Head of Bed Elevated Bedrails Sit to Supine Sit to Supine Minimal Assistance Head of Bed Elevated Bedrails Scooting Scooting to Edge of Bed Contact Guard Assistance Scooting Up and Down in Bed Minimal Assistance PT-Transfer Assessment Comments Mobility Comments VSS during session HR 105-125, SpO2 94-97%, RR 24-45, BP 130s/60s Pt was in bed with elevated head of bed 60 degrees upon assessment. Pt sat up at EOB with CGA with bedrails. Pt sat there for 5mins whose HR was at 120s. Pt requested back to bed due to fatigue and SOB , needed min A for B LEs for sit to supine. Pt was able to scoot up and down in bed with min A. Gait Assessment Comments Gait Comments did not attempt due to fatigue Stair Climbing Assessment Comments Stair Climbing Comments did not attempt due to fatigue PT-Balance Assessment Sitting Balance and Reactions Static Sitting Balance Ability Normal Dynamic Sitting Balance Ability Normal M5 PT-IP Objective Assessments Start: 10/15/18 10:19 Freq: NEEDED Status: Active Protocol: Document 10/15/18 10:00 (Rec: 10/15/18 10:43 [email or web address]) Orientation Orientation/Cognition Level of Alertness Alert Orientation Name Age Birthday Month Date Year Day of Week Place Situation Language Function Ability No Deficits Noted Safety Awareness Understands Safety Issues Memory Description No Deficits Noted Gross Range of Motion Upper Extremity ROM Assessment Within Functional Limits Lower Extremity ROM Assessment Within Functional Limits Strength Upper Extremity Strength Assessment Within Functional Limits Lower Extremity Strength Assessment Bilaterally Impaired Comments Strength Comments B LEs 3+/5 MMT B LEs moderate muscle atrophy noted. Coordination Assessment Gross Coordination Gross Coordination WNL Sensation Assessment Sensation Gross Sensation WNL Light Touch Intact Proprioception (Position) Intact Muscle Tone Muscle Tone WNL Yes M6 PT-IP Treatment Start: 10/15/18 10:19 Freq: NEEDED Status: Active Protocol: Document 10/15/18 10:00 (Rec: 10/15/18 10:43 [email or web address]) Physical Therapy Treatment Exercises Exercises Ankle Pumps Gluteal Sets Quad Sets Heel Slides Other Treatments Other Treatment Performed pursed lip breathing M7 PT-IP Assessment and Plan Start: 10/15/18 10:19 Freq: NEEDED Status: Active Protocol: Document 10/15/18 10:00 (Rec: 10/15/18 10:43 [email or web address]) PT Summary Assessment and Plan Potential Rehabilitation Potential Good Status of Condition at Evaluation Evolving Summary Impairments Strength Bed Mobility Transfers Gait Activity Tolerance Assessment Summary Pt is a 68yo male readmitted to due to acute exacerbation of COPD, ongoing PNA and increased weakness. Pt appears SOB, ongoing coughing and wheezing at rest upon assessment. Pt's VSS flutuated significantly with bed mobility but SpO2 maintained 94-97%. Pt was unable to stand up this sessiona and will not able to arnaud BID due to fatigue and severe deconditioning. Pt is very far from baseline at this point and will cont monitor his mobility status. Pt will benefit from SNF for rehab at this point. Goals Bed Mobility Goal Standby Assistance Transfer Goal Standby Assistance Front Wheeled Walker Four Wheeled Walker Gait Goal Standby Assistance Front Wheel Walker Four Wheel Walker Gait Distance 50 Days to Meet Goals 100 Frequency of Treatment Frequency Of Treatment Once a Day Treatment Plan Physical Therapy Treatment Plan Bed Mobility Training Transfer Training Gait Training Therapeutic Exercise Discharge Planning Other Recommendations and Next Treatment closely monitor VSS Focus bed and seated exercises as arnaud Recommendations To Nursing Amount of Assist Needed 1 Person Assist Discharge Recommendations PT Discharge Recommendations SNF Rehab
[2018-10-15] MEDS: predniSONE 20 MG TABLET 40 MG PO (12:14)
--- NOTE | 2018-10-15 12:21 | P.PN_ITS ---
Subjective Date Patient Seen: 10/15/18 Interval history: Chart reviewed, patient seen and examined. Overall he feels like his breathing has improved today. He feels like he has increased air in the nostrils. The patient and would like him to return home instead of [facility]. Patient has non productive cough, no fever, no hemoptysis Exam Vital Signs (past 8 hours): - 10/15/18 04:37 10/15/18 05:03 10/15/18 07:00 Temperature 96.7 F L Pulse Rate 73 81 Respiratory Rate 17 15 Blood Pressure 137/81 Pulse Oximetry 95 96 98 10/15/18 08:00 10/15/18 09:13 Temperature 97.0 F L Pulse Rate 75 94 H Respiratory Rate 23 28 H Blood Pressure 134/63 Pulse Oximetry 95 96 Fraction of Inspired Oxygen 28 Oxygen Delivery Method Nasal Cannula Oxygen Flow Rate 3 Narrative Exam Narrative: Ill appearing male with pursed lip breathing. Obvious increased work of breathing Lungs: Decreased breath sounds bilaterally CV: RRR nl Sl S2 AbD; soft/ non tender, ventral hernia palpated Ext: no edema Objective Labs Result Diagrams: 10/15/18 04:50 10/15/18 04:50 Labs: Laboratory Results - last 24 hr 10/14/18 10/14/18 10/14/18 10:40 16:25 17:01 WBC RBC Hgb Hct MCV MCH MCHC RDW Plt Count Neut % (Auto) Lymph % (Auto) [place] % (Auto) Eos % (Auto) Baso % (Auto) Lymph # (Auto) [place] # (Auto) Baso # (Auto) Total Counted Seg Neutrophils % Band Neutrophils % Lymphocytes % (Manual) Monocytes % (Manual) Metamyelocytes % Neutrophils # (Manual) RBC Morphology Hypochromasia ABG pH 7.44 ABG pCO2 49.5 H ABG pO2 90 ABG HCO3 33 H ABG Total CO2 35 H ABG O2 Saturation 97 ABG Base Excess 9.0 H FiO2 0.32 Sodium Potassium Chloride Carbon Dioxide BUN Creatinine Estimated GFR BUN/Creatinine Ratio Glucose Lactate Calcium Troponin I B-Natriuretic Peptide Procalcitonin 0.08 Urine Color Urine Appearance Urine pH Ur Specific [place] Urine Protein Urine Glucose (UA) Urine Ketones Urine Occult Blood Urine Nitrate Urine Bilirubin Urine Urobilinogen Ur Leukocyte Esterase Urine RBC Urine WBC Ur Squamous Epith Cells Calcium Oxalate Crystal Amorphous Sediment Urine Bacteria Urine Mucus Ur Culture Indicated? Nasal Screen MRSA (PCR) Negative for mrsa Chlamy pneumoniae PCR Adenovirus (PCR) B.parapertussis DNA PCR Coronavirus OC43 (PCR) Coronavirus HKU1 (PCR) Coronavirus 229E (PCR) Coronavirus NL63 (PCR) Human Metapneumovir PCR Influenza Type A (PCR) Influenza Type B (PCR) M. pneumoniae (PCR) Parainfluenza 1 (PCR) Parainfluenza 2 (PCR) Parainfluenza 3 (PCR) Parainfluenza 4 (PCR) RSV (PCR) Entero/Rhino (PCR) 10/14/18 10/14/18 10/14/18 17:25 18:30 18:30 WBC RBC Hgb Hct MCV MCH MCHC RDW Plt Count Neut % (Auto) Lymph % (Auto) [place] % (Auto) Eos % (Auto) Baso % (Auto) Lymph # (Auto) [place] # (Auto) Baso # (Auto) Total Counted Seg Neutrophils % Band Neutrophils % Lymphocytes % (Manual) Monocytes % (Manual) Metamyelocytes % Neutrophils # (Manual) RBC Morphology Hypochromasia ABG pH ABG pCO2 ABG pO2 ABG HCO3 ABG Total CO2 ABG O2 Saturation ABG Base Excess FiO2 Sodium Potassium Chloride Carbon Dioxide BUN Creatinine Estimated GFR BUN/Creatinine Ratio Glucose Lactate 3.1 H Calcium Troponin I B-Natriuretic Peptide Procalcitonin Urine Color Yellow Urine Appearance Slightly cloudy Urine pH 6.5 Ur Specific [place] 1.010 Urine Protein Negative Urine Glucose (UA) 2+ H Urine Ketones Negative Urine Occult Blood 2+ H Urine Nitrate Negative Urine Bilirubin Negative Urine Urobilinogen 0.2 Ur Leukocyte Esterase Trace H Urine RBC 10-30/hpf H Urine WBC 5-10/hpf H Ur Squamous Epith Cells 1-5 /hpf Calcium Oxalate Crystal Moderate H Amorphous Sediment 1+ Urine Bacteria Moderate (10-30) H Urine Mucus 1+ H Ur Culture Indicated? Specimen cultured Nasal Screen MRSA (PCR) Chlamy pneumoniae PCR Not detected Adenovirus (PCR) Not detected B.parapertussis DNA PCR Not detected Coronavirus OC43 (PCR) Not detected Coronavirus HKU1 (PCR) Not detected Coronavirus 229E (PCR) Not detected Coronavirus NL63 (PCR) Not detected Human Metapneumovir PCR Not detected Influenza Type A (PCR) Not detected Influenza Type B (PCR) Not detected M. pneumoniae (PCR) Not detected Parainfluenza 1 (PCR) Not detected Parainfluenza 2 (PCR) Not detected Parainfluenza 3 (PCR) Not detected Parainfluenza 4 (PCR) Not detected RSV (PCR) Not detected Entero/Rhino (PCR) Not detected 10/14/18 10/15/18 10/15/18 20:22 04:50 04:50 WBC 11.3 H RBC 3.81 L Hgb 11.0 L Hct 34.5 L MCV 90.6 MCH 28.8 MCHC 31.7 RDW 15.6 H Plt Count 393 Neut % (Auto) Not Reportable Lymph % (Auto) Not Reportable [place] % (Auto) Not Reportable Eos % (Auto) Not Reportable Baso % (Auto) Not Reportable Lymph # (Auto) Not Reportable [place] # (Auto) Not Reportable Baso # (Auto) Not Reportable Total Counted 100 Seg Neutrophils % 90.0 H Band Neutrophils % 4.0 Lymphocytes % (Manual) 1.0 L Monocytes % (Manual) 3.0 Metamyelocytes % 2.0 H Neutrophils # (Manual) 79231 H RBC Morphology See below Hypochromasia 1+ H ABG pH ABG pCO2 ABG pO2 ABG HCO3 ABG Total CO2 ABG O2 Saturation ABG Base Excess FiO2 Sodium 139 Potassium 5.0 Chloride 95 L Carbon Dioxide 38 H BUN 20 Creatinine 0.50 L Estimated GFR > 60.0 BUN/Creatinine Ratio 40.0 H Glucose 209 H Lactate 4.6 H Calcium 9.9 Troponin I < 0.012 B-Natriuretic Peptide < 100 Procalcitonin Urine Color Urine Appearance Urine pH Ur Specific [place] Urine Protein Urine Glucose (UA) Urine Ketones Urine Occult Blood Urine Nitrate Urine Bilirubin Urine Urobilinogen Ur Leukocyte Esterase Urine RBC Urine WBC Ur Squamous Epith Cells Calcium Oxalate Crystal Amorphous Sediment Urine Bacteria Urine Mucus Ur Culture Indicated? Nasal Screen MRSA (PCR) Chlamy pneumoniae PCR Adenovirus (PCR) B.parapertussis DNA PCR Coronavirus OC43 (PCR) Coronavirus HKU1 (PCR) Coronavirus 229E (PCR) Coronavirus NL63 (PCR) Human Metapneumovir PCR Influenza Type A (PCR) Influenza Type B (PCR) M. pneumoniae (PCR) Parainfluenza 1 (PCR) Parainfluenza 2 (PCR) Parainfluenza 3 (PCR) Parainfluenza 4 (PCR) RSV (PCR) Entero/Rhino (PCR) 10/15/18 10/15/18 10/15/18 04:50 04:50 09:30 WBC RBC Hgb Hct MCV MCH MCHC RDW Plt Count Neut % (Auto) Lymph % (Auto) [place] % (Auto) Eos % (Auto) Baso % (Auto) Lymph # (Auto) [place] # (Auto) Baso # (Auto) Total Counted Seg Neutrophils % Band Neutrophils % Lymphocytes % (Manual) Monocytes % (Manual) Metamyelocytes % Neutrophils # (Manual) RBC Morphology Hypochromasia ABG pH ABG pCO2 ABG pO2 ABG HCO3 ABG Total CO2 ABG O2 Saturation ABG Base Excess FiO2 Sodium Potassium Chloride Carbon Dioxide BUN Creatinine Estimated GFR BUN/Creatinine Ratio Glucose Lactate 3.1 H 4.6 H Calcium Troponin I B-Natriuretic Peptide Procalcitonin < 0.05 Urine Color Urine Appearance Urine pH Ur Specific [place] Urine Protein Urine Glucose (UA) Urine Ketones Urine Occult Blood Urine Nitrate Urine Bilirubin Urine Urobilinogen Ur Leukocyte Esterase Urine RBC Urine WBC Ur Squamous Epith Cells Calcium Oxalate Crystal Amorphous Sediment Urine Bacteria Urine Mucus Ur Culture Indicated? Nasal Screen MRSA (PCR) Chlamy pneumoniae PCR Adenovirus (PCR) B.parapertussis DNA PCR Coronavirus OC43 (PCR) Coronavirus HKU1 (PCR) Coronavirus 229E (PCR) Coronavirus NL63 (PCR) Human Metapneumovir PCR Influenza Type A (PCR) Influenza Type B (PCR) M. pneumoniae (PCR) Parainfluenza 1 (PCR) Parainfluenza 2 (PCR) Parainfluenza 3 (PCR) Parainfluenza 4 (PCR) RSV (PCR) Entero/Rhino (PCR) Assessment & Plan (1) Acute exacerbation of chronic obstructive pulmonary disease (COPD): Problem details: Patient has chronic end stage COPD. He was not compliant with Trilogy at the SNF. His Acute COPD exacerbation was present on admission Will continue nebulizers, oxygen, steroids, and antibiotics Current visit: No Status: Acute (2) Complication, blocked Salas catheter: Problem details: salas in place, Qualifiers: Encounter type: initial encounter Qualified Code(s): T83.091A - Other mechanical complication of indwelling urethral catheter, initial encounter Current visit: No Status: Acute (3) Type 2 diabetes mellitus: Problem details: Will continue to cover with insulin Current visit: No Status: Chronic (4) Coronary artery disease: Problem details: Chronic, present on admission Current visit: No Status: Chronic (5) BPH (benign prostatic hyperplasia): Problem details: chronic Current visit: No Status: Chronic (6) Acute and chronic respiratory failure: Problem details: Patient has end stage COPD, Chronic hypoxemic respiratory failure, present on admission Would suggest Hospice consult if patient prefers to return home. Continue treatment as above Current visit: Yes Status: Acute (7) Acute invasive pulmonary aspergillosis: Problem details: Continue itraconazle/prednisone, present on admission Current visit: Yes Status: Acute (8) Hyperlipidemia: Problem details: continue statin Current visit: Yes Status: Acute
[2018-10-15] MEDS: levoFLOXacin 750 MG/150 ML PIGGYBACK 100 MG IV (13:04)
--- NOTE | 2018-10-15 14:26 | OT.IP.TRT ---
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) Type 2 diabetes mellitus without complications (10/14/18) Hyperlipidemia, unspecified (10/14/18) Atherosclerotic heart disease of [place] coronary artery without angina pectoris (10/14/18) Chronic obstructive pulmonary disease with (acute) exacerbation (10/14/18) Chronic obstructive pulmonary disease, unspecified (10/14/18) Acute and chronic respiratory failure, unspecified whether with hypoxia or hypercapnia (10/14/18) Benign prostatic hyperplasia without lower urinary tract symptoms (10/14/18) Other mechanical complication of indwelling urethral catheter, initial encounter (10/14/18) Occupational Therapy Treatment Note M3 OT- IP Subjective and Pain Start: 10/15/18 14:24 Freq: Status: Active Protocol: Document 10/15/18 14:25 [facility] (Rec: 10/15/18 14:26 [facility] [id number]) OT- Subjective Occupational Therapy Visit Type Type Patient Refusal Notes Pt in bed and states trying to let his urine flow out into catheter and states would rather rest, therefore to see pt tomorrow for OT eval.
--- NOTE | 2018-10-15 14:42 | PC.NURSE ---
Pt awake/alert and making needs known with clear and logical speech. Intermittently forgetful but calm and cooperative with care. On 3L NC with SPO2 95-98%. Tachypneic at rest mid 20s and up to mid 30s on exertion. Dr. Osei rounded approx 1200. Reported lactic acid level, trending CBGs including noon BG 439, urine growing gram pos cocci. Requested clarification of orders ICU vs ACU. Dr. Osei instructed to monitor CBGs, recheck post prandial BG and cover with correctional novolog per ordered scale. Orders received to change methylprednisone to PO prednisone, dc telemetry monitoring, and consult hospice care. 1400 c/o fullness in bladder and concerned his salas catheter isn't draining requesting catheter to be flushed. 500 ML of tea colored urine emptied from salas bag. Bladder scan performed showing 22 MLs in. Offered repositioning for comfort, will monitor.
--- NOTE | 2018-10-15 15:14 | CM.DPC ---
DCP Cont: Called patient's , Gina. Her number is [phone]. She stated that patient was still at [facility], and came from there. She is hoping that he will be able to come home when he is stable. She also stated that he had been using [facility] prior to going to long-term. His mentioned that he had gone to skilled from last admission here, secondary to weakness, for he had not been up much. She is hoping that he can return home after this hospital stay. P: DCP to continue to follow closely. May need to consult with physical therapy team before he is discharged home. Poppy Koehler RN/Psychology Tech
[2018-10-15] MEDS: ATORVASTATIN 20 MG TABLET PO (20:51)
[2018-10-15] MEDS: MORPHINE 2 MG/ML INJ IV (22:18)
[2018-10-16] VITALS (16 sets, daily range): BP systolic 130–150; BP diastolic 58–80; PULSE 66–97; RESP 16–28; TEMP 35.8–36.9; O2SAT 92–99
[2018-10-16] MEDS: PIPERACILLIN-TAZO 3.375 GM/50 ML FROZ.PIGGY IV ×2 (00:05→06:06)
--- NOTE | 2018-10-16 01:03 | PC.NURSE ---
Addendum entered by Nano Gautam R.N. 10/16/18 06:48: 0645 - [employer], Jg notified of elevated potassium, 5.4, and increase in WBC to 14.5. Original Note: Addendum entered by Nano Gautam R.N. 10/16/18 05:11: 0430 - Encouraged pt to reposition for pericare and clothing change. Pt reports feeling anxious about activit and becoming SOB. Requesting RX prior to activity. Discussed morphine and ativan. Pt requesting ativan. Given as ordered. Pt able to stand at bedside, linen change, merced-care, barrier cream, returned to bed sats remained >90. However pt reports feeling SOB, Pursed-lip breathing. Returned to high fowlers per request, waffle cushion under buttock. Independently using trilogy pipe attachment to aid in recovery. Call light in reach. Original Note: Addendum entered by Nano Gautam R.N. 10/16/18 04:06: 0315 - Discussed repositioning and skin integrity with pt. Pt declines to turn at this time. Requesting to sit up and have coffee. Original Note: 0000 - Pt resting in bed. Able to lay nearly flat. O2 3L sats 95%. Pt declines to wear trilogy. Pipe adapter available and at bedside for prn use. Pt reports morphine helpful with dyspnea. IV abx infusing. SCD's in place. Educated pt skin integrity and need to reposition. Pt verbalized understanding. Reports ability to reposition without assistance. Monitor. Bed alarm on.
[2018-10-16] MEDS: ALBUTEROL/IPRATROPIUM 3 ML AMPUL INH ×4 (04:11→17:48)
[2018-10-16] MEDS: FLUTICASONE/SALMETEROL 250/50 14 PUFF DISKUS INH ×2 (04:12→17:49)
[2018-10-16] MEDS: LORazepam 2 MG/ML SYRINGE 0.5 MG IV ×2 (04:32→16:39)
[2018-10-16 05:07] LABS: Hematocrit 34.8 % (41-53); Hemoglobin 11.1 g/dL (13.5-17.5); Mean Corpuscular HGB Conc 31.8 % (30-36); Mean Corpuscular Hemoglobin 28.5 PG (26-34); Mean Corpuscular Volume 89.6 fL (80-100); Platelet Count 454 X10^3/uL (150-400); Red Blood Cell Count 3.89 X10^6/uL (4.5-5.9); Red Cell Distribution Width 15.9 % (11.6-14.8); White Blood Cell Count 14.5 X10^3/uL (4.5-11.0)
[2018-10-16 05:09] LABS: Add Manual Diff / Slide Review YES
[2018-10-16 05:11] LABS: Blood Urea Nitrogen 28 mg/dL (9-20); Calcium 9.9 mg/dL (8.4-10.2); Carbon Dioxide 36 mmol/L (22-32); Chloride 96 mmol/L (98-107); Estimated Glomerular Filt Rate > 60.0 mL/min (>60); Glucose 273 mg/dL (80-110); HEMOLYSIS < 15 (0-50); Sodium 140 mmol/L (137-145)
[2018-10-16 05:26] LABS: Potassium 5.4 mmol/L (3.4-5.1)
[2018-10-16 05:29] LABS: Neutrophils Absolute Manual 14065 /uL (3000-5900); Total Cells Counted 100
[2018-10-16 05:30] LABS: RBC Morphology Normal Morphology
[2018-10-16] MEDS: INSULIN ASPART 100 UNIT/ML INSULN PEN SUBCUT ×4 (08:23→20:11)
[2018-10-16] MEDS: predniSONE 20 MG TABLET 40 MG PO (08:27)
[2018-10-16] MEDS: ASPIRIN EC 81 MG TABLET PO (08:27)
[2018-10-16] MEDS: TAMSULOSIN 0.4 MG CAPSULE PO (08:27)
[2018-10-16] MEDS: PANTOPRAZOLE 40 MG TABLET PO (08:27)
[2018-10-16] MEDS: HEPARIN 5,000 UNIT/ML VIAL 5000 UNIT SUBCUT ×2 (08:28→20:29)
[2018-10-16] MEDS: guaiFENesin ER 600 MG TAB 1200 MG PO ×2 (08:28→20:09)
[2018-10-16] MEDS: ITRACONAZOLE 200 MG 200 EACH PO ×2 (08:34→16:47)
--- NOTE | 2018-10-16 10:09 | CM.DPC ---
Addendum entered by Poppy Koehler R.N. 10/16/18 15:30: Was called by Valerie in ICU that was here and tearful. Went down and spoke to and patient. Discussed hospice. Patient was asking questions, for was wanting him to make these decisions. He asked if he can still have antibiotics, and if they would be collecting his blood work. Let him know that Hospice will sometimes do labs if necessary, but do try to not do invasive procedures. Also let him know that patients can be on antibiotics, if for comfort. Encouraged him to let them come and explain services. Set up time for tomorrow between 9:00-10:00. will be present during hospice meeting. Patient has stated that he does not want to go back to [facility], and either wants to go back with [facility], or may pursue hospice. Patient admitted to being tired of going back and forth into hospital. Original Note: DCP Cont: Discussed patient during rounds. Dr. Osei stated that Hospice may be a good choice for patient, since he has had recent hospital admissions. Went ahead and let , Gina, know. Patient had Hospice info visit before, and was concerned that he may not qualify. Has had several bacterial lung infections, and may qualify this time. Went ahead and updated Nola at Hospice, and faxed clinical notes. P: DCP to follow closely. May be able to discharge home with Hospice. Other alternative is for him to go back to [facility]. Poppy Koehler RN/Summer Internship
--- NOTE | 2018-10-16 10:28 | PT.IPTN ---
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) Type 2 diabetes mellitus without complications (10/14/18) Hyperlipidemia, unspecified (10/14/18) Atherosclerotic heart disease of [place] coronary artery without angina pectoris (10/14/18) Chronic obstructive pulmonary disease with (acute) exacerbation (10/14/18) Chronic obstructive pulmonary disease, unspecified (10/14/18) Acute and chronic respiratory failure, unspecified whether with hypoxia or hypercapnia (10/14/18) Benign prostatic hyperplasia without lower urinary tract symptoms (10/14/18) Other mechanical complication of indwelling urethral catheter, initial encounter (10/14/18) Physical Therapy Treatment Note M2 PT-IP Current Condition Start: 10/15/18 10:19 Freq: NEEDED Status: Active Protocol: Document 10/15/18 10:00 [facility] (Rec: 10/15/18 10:43 [email or web address]) Physical Therapy Current Condition Current Condition Evaluation Date 10/15/18 Treatment Diagnosis Acute COPD, PNA, impaired gait and reduced activity tolerance. 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 Therapy Pain Assessment Pain When Pain Assessed During Mobility Pain Present Pain Present Pain Reported M4 PT-IP Mobility and Gait Start: 10/15/18 10:19 Freq: NEEDED Status: Active Protocol: Document 10/16/18 10:20 GGD (Rec: 10/16/18 10:28 GGD [email or web address]) PT-Bed Mobility Assessment Supine to Sit Supine to Sit Contact Guard Assistance Head of Bed Elevated Sit to Supine Sit to Supine Minimal Assistance Head of Bed Elevated Scooting Scooting to Edge of Bed Standby Assistance Scooting Up and Down in Bed Standby Assistance PT-Transfer Assessment Sit to and From Stand Sit to and from Stand Contact Guard Assistance Equipment Transfer Assistive Device 4 Wheeled Walker Orthotic/Prosthetic Devices or Brace: No Transfers Transfer Destination Bed Transfer Ability Level of Assist Contact Guard Assistance Comments Mobility Comments HR 100 -107, O2 87-97% Gait Assessment Gait Gait Assistance Required: Contact Guard Assist Distance (Feet) 12 Able to Maintain Weight Bearing Status Yes During Gait Assistive Devices Assistive Device 4 Wheeled Walker Orthotic/Prosthetic Devices or Brace: No Gait Deviations General Gait Pattern Decreased Stride Length Decreased Feet Clearance Factors Limiting Gait Function Factors Limiting Gait Function Decreased Activity Tolerance Decreased Strength Pain Poor Balance Respiratory Distress M5 PT-IP Objective Assessments Start: 10/15/18 10:19 Freq: NEEDED Status: Active Protocol: Document 10/15/18 10:00 (Rec: 10/15/18 10:43 [email or web address]) Orientation Orientation/Cognition Level of Alertness Alert Orientation Name Age Birthday Month Date Year Day of Week Place Situation Language Function Ability No Deficits Noted Safety Awareness Understands Safety Issues Memory Description No Deficits Noted Gross Range of Motion Upper Extremity ROM Assessment Within Functional Limits Lower Extremity ROM Assessment Within Functional Limits Strength Upper Extremity Strength Assessment Within Functional Limits Lower Extremity Strength Assessment Bilaterally Impaired Comments Strength Comments B LEs 3+/5 MMT B LEs moderate muscle atrophy noted. Coordination Assessment Gross Coordination Gross Coordination WNL Sensation Assessment Sensation Gross Sensation WNL Light Touch Intact Proprioception (Position) Intact Muscle Tone Muscle Tone WNL Yes M6 PT-IP Treatment Start: 10/15/18 10:19 Freq: NEEDED Status: Active Protocol: Document 10/15/18 10:00 (Rec: 10/15/18 10:43 [email or web address]) Physical Therapy Treatment Exercises Exercises Ankle Pumps Gluteal Sets Quad Sets Heel Slides Other Treatments Other Treatment Performed pursed lip breathing M7 PT-IP Assessment and Plan Start: 10/15/18 10:19 Freq: NEEDED Status: Active Protocol: Document 10/16/18 10:20 GGD (Rec: 10/16/18 10:28 GGD [email or web address]) PT Summary Assessment and Plan Summary Assessment Summary Pt able to progress slowly with mobility. He was safe with gait and had no unsteadiness. He was limited by SOB and needing rest breaks during to activity. He may progress with mobility when medically improved. Frequency of Treatment Frequency Of Treatment Once a Day Treatment Plan Physical Therapy Treatment Plan Bed Mobility Training Transfer Training Gait Training Therapeutic Exercise Discharge Planning Other Recommendations and Next Treatment closely monitor VSS Focus bed and seated exercises as arnaud Recommendations To Nursing Amount of Assist Needed 1 Person Assist Discharge Recommendations PT Discharge Recommendations SNF Rehab
[2018-10-16] MEDS: TIGECYCLINE 100 MG in SODIUM CHLORIDE 0.9% 100 ML IV (12:39)
[2018-10-16] MEDS: SODIUM CHLORIDE 0.9% FLUSH 10 ML IV ×2 (12:40→20:20)
--- NOTE | 2018-10-16 12:57 | OT.IP.EVAL ---
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) Type 2 diabetes mellitus without complications (10/14/18) Hyperlipidemia, unspecified (10/14/18) Atherosclerotic heart disease of [place] coronary artery without angina pectoris (10/14/18) Chronic obstructive pulmonary disease with (acute) exacerbation (10/14/18) Chronic obstructive pulmonary disease, unspecified (10/14/18) Acute and chronic respiratory failure, unspecified whether with hypoxia or hypercapnia (10/14/18) Benign prostatic hyperplasia without lower urinary tract symptoms (10/14/18) Other mechanical complication of indwelling urethral catheter, initial encounter (10/14/18) Past Medical History (Last Reviewed 10/14/18 @ 21:35 by NISA Kincaid) Anxiety (Chronic Unknown) Peripheral vascular disease (Chronic Unknown) Hx of small bowel obstruction (Resolved 03/2015) Hyperlipemia (Chronic Unknown) Nontuberculous mycobacterial infection (Chronic 2014) Coronary artery disease (Chronic Unknown) History of colon cancer (Resolved ~2010) BPH (benign prostatic hyperplasia) (Chronic Unknown) COPD (chronic obstructive pulmonary disease) (Chronic Unknown) Diabetes (Chronic Unknown) COPD (chronic obstructive pulmonary disease) (Inactive) Dependent edema (Inactive) Surgical History (Last Reviewed 10/14/18 @ 21:35 by NISA Kincaid) H/O cardiac catheterization (Resolved 2010) S/P small bowel resection (Resolved 03/2015) Hx of hernia repair (Resolved 2008) S/P colon resection (Resolved 2010) Hx of cataract surgery (Resolved 2014) Occupational Therapy Inpatient Evaluation/Re-Eval M1 PT/OT-IP Prior Functional Status Start: 10/15/18 14:24 Freq: NEEDED Status: Active Protocol: Document 10/16/18 12:43 [facility] (Rec: 10/16/18 12:56 [facility] [email or web address]) Medical Review Prior Functional Status Medical History Reviewed Yes Communication No deficits noted. Able to make needs known. Mobility and Gait Pt was d/c to [facility] since last admission in Sep. Pt stated he was able to amb 100 ft couple times a day but progressively declined to 30 ft a day with his 4WW. Pt did need nursing staff from [facility] to supervise/ SBA. Activities of Daily Living and IADL's 1 PA CGA/SBA for ADLs and min to mod A for IADLs from nursing staff from [facility]. Social History Household Members spouse family Living Arrangements Skilled Nurse Facility Number of Stairs To Enter/Railing? Ramp to enter the house Home Environment Standard Height Toilet High Toilet Walk in Shower Home Equipment Four Wheel Walker Manual Wheelchair Power Wheelchair/Scooter Employment Status Retired Additional Social History Comment Pt's used to live in a one level house with his grandson who is able to assist at times . Pt was admitted to for 2 weeks due to acute PNA since early Sep. He was then d/c to [facility] for cont rehab and to address his medical condition. Pt readmitted to on due to acute exabation of COPD, SOB and R upper lobe PNA . Pt states he used 3L O2 in [facility] and was able to 100 ft for multiplet times a day at first but slowly decline to 30 ft. He reports he experienced increased weakness and SOB lately. M2 OT-IP Current Condition Start: 10/15/18 14:24 Freq: Status: Active Protocol: Document 10/16/18 12:43 [facility] (Rec: 10/16/18 12:56 [facility] [email or web address]) Occupational Therapy Current Condition Current Condition Evaluation Date 10/16/18 Treatment Diagnosis COPD exacerbation, PNA Diagnosis Onset Date 10/14/18 M3 OT- IP Subjective and Pain Start: 10/15/18 14:24 Freq: Status: Active Protocol: Document 10/16/18 12:43 [facility] (Rec: 10/16/18 12:56 [facility] [email or web address]) OT- Subjective Occupational Therapy Visit Type Type Initial Evaluation Visit Start Time 10:00 Visit Stop Time 10:15 Total Visit Minutes 15 Occupational Therapy Visit Comments Patient Comments Pt agreeable to get up. OT Pain Assessment Pain When Pain Assessed At Rest Pain Present Pain Present Denied Pain M4 OT- IP ADL's Start: 10/15/18 14:24 Freq: Status: Active Protocol: Document 10/16/18 12:43 [facility] (Rec: 10/16/18 12:56 [facility] [email or web address]) OT ADL-Dressing General Eval Lower Body Dressing Ability Standby Assistance Comments OT Dressing Comments Pt able to nisreen/doff slipper on his own with increased time . OT ADL-Toileting Comments OT Toileting Comments Pt has catheter. M6 OT- IP Functional Cognition Start: 10/15/18 14:24 Freq: Status: Active Protocol: Document 10/16/18 12:43 [facility] (Rec: 10/16/18 12:56 [facility] [email or web address]) Cognitive Factors Limiting Selfcare Function Cognitive Ability Level of Alertness Alert Patient Orientation Name Place Situation Attention Span Ability Capable of Focused Attention Capable of Sustained Attention Ability to Follow Commands Able to Follow One Step Commands Safety Awareness Underestimates Need for Assistance Cognitive Comments Cognitive Assessment Comments Pt able to follow one step commands, to do more cognitive assessments tomorrow. OT- Vision and Hearing OT- Hearing Assessment OT- Hearing Assessment WFL M7 OT- IP Mobility and Balance Start: 10/15/18 14:24 Freq: Status: Active Protocol: Document 10/16/18 12:43 [facility] (Rec: 10/16/18 12:56 [facility] [email or web address]) OT- Bed Mobility Assessment Rolling Type of Rolling Roll to Left Level of Assistance Head of Bed Elevated Supine to Sit Supine to Sit Assist Contact Guard Assistance 1 Person Assistance Sit to Supine Sit to Supine Assist Standby Assistance 1 Person Assistance OT-Transfer Assessment Sit to and From Stand Sit to and from Stand Contact Guard Assistance 1 Person Assistance Transfers Transfer Ability Contact Guard Assistance 1 Person Assistance Technique Transfer Destination Bed Comments Mobility Comments CGA for bed mobility and to take a few steps with 4ww. Pt gets very short of breath and needing lots of rest breaks O2 from 87-97% and HR 100-107. M8 OT- IP Objective Assessments Start: 10/15/18 14:24 Freq: Status: Active Protocol: Document 10/16/18 12:43 [facility] (Rec: 10/16/18 12:56 [facility] [email or web address]) OT Gross Range of Motion Upper Extremity Range of Motion Assessment Within Functional Limits OT Strength Comments Strength Comments BUE 5/5 M9 OT- IP Assessment and Plan Start: 10/15/18 14:24 Freq: Status: Active Protocol: Document 10/16/18 12:43 [facility] (Rec: 10/16/18 12:56 [facility] [email or web address]) OT Summary Assessment and Plan Potential Rehabilitation Potential Fair Analytic Complexity at Evaluation Low Summary OT Impairments Balance Functional Cognition Functional Mobility Grooming Dressing Toileting Bathing Toilet Transfers Shower Transfers Progress Towards Goals Slow Progress due to Medical Issues Slow Progress due to Activity Tolerance Slow Progress due to Cognition Assessment Summary Pt low complexity and main barrier is medical needs and decreased activity tolerance. Pt would benefit from skilled rehab prior to going home. Goals Grooming Goal Standby Assistance Dressing Goal Standby Assistance Toileting Goal Standby Assistance Bathing Goal Minimal Assistance Toilet Transfer Goal Standby Assistance Shower Transfer Goal Contact Guard Assistance OT-Other Goals Goals above for grooming in standing. Days to Meet Goals 7 Frequency of Treatment Frequency Of Treatment Once a Day Treatment Plan OT Treatment Plan ADL Training Functional Cognition Training Functional Mobility Patient/Family Education Discharge Planning Other Treatment Recommendations and Next Stand for grooming needs. Treatment Focus Discharge Recommendations OT Discharge Recommendations SNF Rehab
--- NOTE | 2018-10-16 13:30 | PM.PN.1 ---
Subjective Date Patient Seen: 10/16/18 Interval history: Patient remains markedly short of breath. He is willing to consider Hospice as he wants to return home instead of the alf. He does not have a cough. He gets very short of breath with minimal activity. He is unable to provide self care like bathing, wiping after the bathroom, or walking even short distances. He should qualify for hospice and discharge home would be reasonable with hospice support. Exam Vital Signs (past 8 hours): - 10/16/18 07:00 10/16/18 07:37 10/16/18 10:00 Temperature 97.3 F L Pulse Rate 77 97 H Respiratory Rate 22 24 Blood Pressure 146/69 H Pulse Oximetry 95 99 3 L 10/16/18 12:00 Temperature 98.4 F Pulse Rate 81 Respiratory Rate 24 Blood Pressure 130/66 Pulse Oximetry 97 Fraction of Inspired Oxygen 28 Oxygen Delivery Method Nasal Cannula Oxygen Flow Rate 3 Narrative Exam Narrative: Markedly short of breath, with obvious air hunger Lungs: decreased breath sounds bilaterally CV: RRR nl Sl S2 Abd: soft/ non tender/ large ventral hernia palpated. non tender Ext: 1+ edema bilaterally Objective Labs Result Diagrams: 10/16/18 04:44 10/16/18 04:44 Labs: Laboratory Results - last 24 hr 10/16/18 10/16/18 04:44 04:44 WBC 14.5 H RBC 3.89 L Hgb 11.1 L Hct 34.8 L MCV 89.6 MCH 28.5 MCHC 31.8 RDW 15.9 H Plt Count 454 H Neut % (Auto) Not Reportable Lymph % (Auto) Not Reportable [place] % (Auto) Not Reportable Eos % (Auto) Not Reportable Baso % (Auto) Not Reportable Lymph # (Auto) Not Reportable [place] # (Auto) Not Reportable Baso # (Auto) Not Reportable Total Counted 100 Seg Neutrophils % 93.0 H Band Neutrophils % 4.0 Lymphocytes % (Manual) 3.0 L Neutrophils # (Manual) 20676 H RBC Morphology Normal morphology Sodium 140 Potassium 5.4 H Chloride 96 L Carbon Dioxide 36 H BUN 28 H Creatinine 0.50 L Estimated GFR > 60.0 BUN/Creatinine Ratio 56.0 H Glucose 273 H Calcium 9.9 Assessment & Plan (1) Acute and chronic respiratory failure: Problem details: Patient has end stage COPD, Chronic hypoxemic respiratory failure, present on admission Would suggest Hospice consult if patient prefers to return home. Continue treatment as above Current visit: Yes Status: Acute (2) Acute invasive pulmonary aspergillosis: Problem details: Continue itraconazle/prednisone, present on admission Current visit: Yes Status: Acute (3) Acute exacerbation of chronic obstructive pulmonary disease (COPD): Problem details: Patient has chronic end stage COPD. He was not compliant with Trilogy at the SNF. His Acute COPD exacerbation was present on admission Will continue nebulizers, oxygen, steroids, and antibiotics Current visit: No Status: Acute (4) Type 2 diabetes mellitus: Problem details: Will continue to cover with insulin Current visit: No Status: Chronic (5) Hyperlipemia: Problem details: continue statin Current visit: No Status: Chronic (6) Hyperkalemia: Problem details: will continue to monitor closely Current visit: No Status: Acute (7) Secondary bacterial pneumonia: Problem details: Patient has resistant stenotrophomonas, he will be treated with Tigecyline for now. Current visit: Yes Status: Acute Assessment & Plan narrative: Hopefully home with hospice soon.
[2018-10-16 14:04] LABS: Anti-Streptolysin O Antibody < 50 IU/mL (< 200)
[2018-10-16] MEDS: ATORVASTATIN 20 MG TABLET PO (20:09)
[2018-10-16] MEDS: INSULIN GLARGINE 100 UNIT/ML 3ML PEN 20 UNIT SUBCUT (20:12)
[2018-10-17] VITALS (11 sets, daily range): BP systolic 124–157; BP diastolic 60–77; PULSE 72–92; RESP 19–28; TEMP 36.3–36.9; O2SAT 92–99; BMI 23.5
[2018-10-17] MEDS: TIGECYCLINE 50 MG in SODIUM CHLORIDE 0.9% 100 ML 200 ML IV ×2 (00:10→12:05)
[2018-10-17] MEDS: SODIUM CHLORIDE 0.9% FLUSH 10 ML IV ×4 (00:27→20:53)
[2018-10-17] MEDS: ALBUTEROL/IPRATROPIUM 3 ML AMPUL INH ×3 (03:08→13:16)
[2018-10-17] MEDS: LORazepam 2 MG/ML SYRINGE 0.5 MG IV (03:31)
--- NOTE | 2018-10-17 08:10 | CM.DPC ---
DCP: continued:Case received. Received VM from ISAC Dunaway asking for specifics re the info visit today and needing MICAH confirmation re time of this visit. Reviewed EMR and hand off info from Severiano Treviño. Spoke with HNW Errol, pt's Gina and TRAVEL PROFESSIONAL Valerie. The visit is now all set up for 1000. Julissa/HNW will be meeting with pt, Gina and pt's son who is taking off work to be here at 1000. Will be following.
[2018-10-17] MEDS: TAMSULOSIN 0.4 MG CAPSULE PO (08:24)
[2018-10-17] MEDS: guaiFENesin ER 600 MG TAB 1200 MG PO ×2 (08:24→20:51)
[2018-10-17] MEDS: ASPIRIN EC 81 MG TABLET PO (08:24)
[2018-10-17] MEDS: predniSONE 20 MG TABLET 40 MG PO (08:24)
[2018-10-17] MEDS: HEPARIN 5,000 UNIT/ML VIAL 5000 UNIT SUBCUT ×2 (08:25→20:51)
[2018-10-17] MEDS: PANTOPRAZOLE 40 MG TABLET PO (08:25)
[2018-10-17] MEDS: ITRACONAZOLE 200 MG 200 EACH PO ×2 (08:25→17:12)
[2018-10-17] MEDS: INSULIN ASPART 100 UNIT/ML INSULN PEN SUBCUT ×4 (08:25→20:50)
[2018-10-17] MEDS: LORazepam 1 MG TABLET PO (08:46)
[2018-10-17] MEDS: FLUTICASONE/SALMETEROL 250/50 14 PUFF DISKUS INH ×2 (09:22→20:51)
--- NOTE | 2018-10-17 10:31 | PC.NURSE ---
Addendum entered by Henrietta Mai R.N. 10/17/18 14:12: moved pt to room 214- he reports that he will call his and let her know- reminded him that he hasn't been an actual icu pt for several days now- removal of salas cath per md order and given urinal- Original Note: PT AND HIS FAMILY ( SON AND ) HAVE DECLINED HOSPICE SERVICES AT THISTIME WISHING TO HAVE ANOTHER APPOINTMENT WITH HIS FIELD RADIO TECHNICIAN THINKING THERE STILL MAY A TREATMENT FOR HIS MEDICAL SITUATION- ULTIMATE GOAL IS TO D/C HOME THOUGH- WILL CONTINUE CURRENT THERAPY ORDERED BY .
--- NOTE | 2018-10-17 10:49 | OT.IP.TRT ---
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 coronary artery without angina pectoris (10/14/18) Unspecified bacterial pneumonia (10/14/18) Chronic obstructive pulmonary disease with (acute) exacerbation (10/14/18) Chronic obstructive pulmonary disease, unspecified (10/14/18) Acute and chronic respiratory failure, unspecified whether with hypoxia or hypercapnia (10/14/18) Benign prostatic hyperplasia without lower urinary tract symptoms (10/14/18) Other mechanical complication of indwelling urethral catheter, initial encounter (10/14/18) Occupational Therapy Treatment Note M2 OT-IP Current Condition Start: 10/15/18 14:24 Freq: Status: Active Protocol: Document 10/16/18 12:43 [facility] (Rec: 10/16/18 12:56 [facility] [email or web address]) Occupational Therapy Current Condition Current Condition Evaluation Date 10/16/18 Treatment Diagnosis COPD exacerbation, PNA Diagnosis Onset Date 10/14/18 M3 OT- IP Subjective and Pain Start: 10/15/18 14:24 Freq: Status: Active Protocol: Document 10/17/18 10:47 [facility] (Rec: 10/17/18 10:49 [facility] [email or web address]) OT- Subjective Occupational Therapy Visit Type Type Administrative Note Notes Per MD discharge pt from therapies.
--- NOTE | 2018-10-17 11:54 | P.PN_ITS ---
Subjective Date Patient Seen: 10/17/18 Interval history: Patient is a 68 y/o male admitted for recurrent end stage COPD manifested by Acute on Chronic Hypoxemic respiratory failure. He was using Trilogy at [facility] but had some difficulty with the machine. He returned hypoxic and with new pulmonary infections. He has Aspergillious for which is currently undergoing treatment. He is also on Tigecyline for treatment of resistant stenotrophomonas. He continues to have a cough, he is very short of breath at rest. He seems marginally better if at all. We discussed hospice with him and his . They elected to continue on Trilogy at this time with home health. His Professor Of Architecture, Dr. Armando will refer to hospice if he continues to fail with outpatient treatment. He continues to have a catheter in place. This will be removed today in anticipation for discharge home tomorrow. Exam Vital Signs (past 8 hours): - 10/17/18 08:56 10/17/18 09:23 Temperature 97.8 F Pulse Rate 85 79 Respiratory Rate 19 22 Blood Pressure 157/75 H Pulse Oximetry 95 98 Fraction of Inspired Oxygen 28 Oxygen Delivery Method Nasal Cannula Oxygen Flow Rate 4 Narrative Exam Narrative: Frail, ill appearing male short of breath Lungs: decreased breath sounds with basilar rhonchi bilaterally CV: RRR nl Sl S2 Abd: soft/ protuberant/ ventral hernia palpable Ext: 1-2+ edema bilaterally Objective Labs Result Diagrams: 10/16/18 04:44 10/16/18 04:44 Labs: Laboratory Results - last 24 hr 10/14/18 17:25 Anti-Streptolysin O Ab < 50 Assessment & Plan (1) Acute and chronic respiratory failure: Problem details: Patient has end stage COPD, Chronic hypoxemic respiratory failure, present on admission Would suggest Hospice consult if patient prefers to return home. Continue treatment as above. Patient has elected not to pursue hospice at this time. He will continue outpatient management per pulmonary. Current visit: Yes Status: Acute (2) Acute exacerbation of chronic obstructive pulmonary disease (COPD): Problem details: Patient has chronic end stage COPD. He was not compliant with Trilogy at the [facility]. His Acute COPD exacerbation was present on admission Will continue nebulizers, oxygen, steroids, and antibiotics. On Tigecyline for resistant Stenotrophomonas Current visit: No Status: Acute (3) Acute invasive pulmonary aspergillosis: Problem details: Continue itraconazle/prednisone, present on admission Current visit: Yes Status: Acute (4) Secondary bacterial pneumonia: Problem details: Patient has resistant stenotrophomonas, he will be treated with Tigecyline for now. Current visit: Yes Status: Acute (5) Hyperlipidemia: Problem details: continue statin Current visit: Yes Status: Acute (6) Type 2 diabetes mellitus: Problem details: Will continue to cover with insulin. basal insulin added to his regimen Current visit: No Status: Chronic (7) Anxiety: Problem details: will continue prn ativan Current visit: No Status: Chronic Assessment & Plan narrative: Urinary retention-Will discontinue salas today. Will order hospital bed. Anticipate discharge home with home health tomorrow
[2018-10-17] MEDS: INSULIN GLARGINE 100 UNIT/ML 3ML PEN 20 UNIT SUBCUT (20:49)
[2018-10-17] MEDS: ATORVASTATIN 20 MG TABLET PO (20:51)
[2018-10-18] VITALS (10 sets, daily range): BP systolic 138–143; BP diastolic 64–77; PULSE 65–89; RESP 20–24; TEMP 36.3–36.7; O2SAT 93–100
[2018-10-18] MEDS: TIGECYCLINE 50 MG in SODIUM CHLORIDE 0.9% 100 ML 200 ML IV ×2 (00:13→11:40)
[2018-10-18] MEDS: SODIUM CHLORIDE 0.9% FLUSH 10 ML IV ×3 (00:13→19:45)
[2018-10-18] MEDS: SODIUM CHLORIDE 0.9% 250 ML 21 ML IV (00:14)
--- NOTE | 2018-10-18 00:40 | PC.NURSE ---
Patient is oriented except to day of month. Breath sounds diminished with expiratory rhonchi in upper lobes and coarse crackles in right LL. Has shortened expiratory phase. Oxygen at 3L/min per NC with sat of 97%. Has moist, congested cough which he states is intermittently productive of brown sputum. Becomes SOB with any exertion. HRR. Denies nausea. BT present but hypoactive and has not had BM since 10/14 but is passing flatus. Voiding per urinal and denies dysuria, frequency or urgency. Able to turn self in bed. Has small pencil eraser size open area on right buttock. Denies pain. 2+ bilateral foot/ankle edema noted which he states is chronic. Wearing bilateral SCD's. Fall risk score is moderate; bed alarm is activated.
[2018-10-18] MEDS: LORazepam 1 MG TABLET PO ×3 (05:38→19:43)
[2018-10-18 06:42] LABS: Blood Urea Nitrogen 40 mg/dL (9-20); Calcium 9.4 mg/dL (8.4-10.2); Carbon Dioxide 37 mmol/L (22-32); Chloride 97 mmol/L (98-107); Estimated Glomerular Filt Rate > 60.0 mL/min (>60); Glucose 137 mg/dL (80-110); HEMOLYSIS < 15 (0-50); Sodium 139 mmol/L (137-145)
[2018-10-18 06:43] LABS: Magnesium 2.1 mg/dL (1.6-2.3)
[2018-10-18 06:58] LABS: Procalcitonin < 0.05 ng/mL (<0.5)
[2018-10-18] MEDS: ALBUTEROL/IPRATROPIUM 3 ML AMPUL INH ×4 (07:12→21:30)
[2018-10-18] MEDS: FLUTICASONE/SALMETEROL 250/50 14 PUFF DISKUS INH ×2 (07:14→21:30)
--- NOTE | 2018-10-18 07:40 | PM.DS.1 ---
History of Present Illness Date Patient Seen: 10/14/18 Chief complaint: SOB, COPD Narrative: Written by Miguel PAULA: This is a 5-year-old gentleman who is a former smoker with a history emphysema, coronary artery disease 4, diabetes, peripheral vascular disease, hyperlipidemia presents today with progressive dyspnea and increasing chest congestion. Patient was seen and evaluated for similar complaint on 10/09/2017 with the patient received nebulizer therapy and steroids at which time he improved well enough he was discharged home. Chest x-ray at that time noted emphysema changes but did not identify any infiltrates. The patient began feeling more congestion and more dyspneic yesterday and reports being up multiple times during the night for bowel movements which he reported as exhausting. He is on chronic home O2 at 3 liters/minute and he describes prolonged recovery than typical after activity. He did receive a nebulizer treatment at 2:00 in the morning for dyspnea however the patient states he woke this morning dyspneic and air hungry withhis own pulse oximeter which showed a reading of 88. He summoned staff at his care facility and the patient was subsequently sent to the ER for evaluation. Patient received oxygen at 4 liters/minute and nebulizer treatments en route to the hospital. The patient denies any complaints fever chills, headaches or dizziness nasal congestion or sore throat. He has a chronic cough that has been worsening feeling more congestion. He denies chest pain or palpitations. Has no complaints of nausea vomiting and reports having 3 bowel movements last night and 1 this morning. The patient arrived in the ER at 10:25 a.m. at which time he is found to be afebrile at 97.8, heart rate 90, blood pressure 145/97, respiratory rate of 24 saturating at 97% on 4 liters/minute nasal cannula. The patient received multiple nebulizer treatments in the ER and has been on a very slow steroid taper per his care program resident. Twelve lead EKG shows a sinus rhythm with a rate of 86 without ectopy, ST or T-wave changes and unchanged from prior EKG done on 10/09/2017. On laboratory analysis he is on chronic steroid therapy and has a white count of 18.5 mildly anemic with a hemoglobin of 12.1 and hematocrit of 38.1 and platelets of 419. He does have an elevated lactate at 4.5 however negative procalcitonin and 0.08. He has a negative CK panel and a troponin less than 0 0.012 and BNP less than 100. His chemistries are within normal limits save for glucose at 2:02 a.m.. Chest x-ray reveals severe emphysema with right upper lobe infiltrates not present on previous exam of 10/09/2018. The patient was started on levofloxacin and given a 1 L fluid bolus. He is admitted to the hospital for exacerbation of COPD. Discharge Providers Date of admission: 10/14/18 12:26 Discharge Date: 10/19/18 Primary care physician: Rubens Olivier MD Consults: 10/14/18 13:35 Consult to Respiratory Therapy Evaluate & Treat Comment: Physician Instructions: Evaluate and treat 10/14/18 14:13 Consult to Dietitian, Adult Routine Comment: Reason For Exam: Weight loss. Not eating enough Consult to Pastoral Services Routine Comment: would like to talk 10/14/18 14:27 Consult to Occupational Therapy Evaluate & Treat Comment: Physician Instructions: Evaluate and treat Consult to Physical Therapy Evaluate & Treat Comment: Physician Instructions: Evaluate and Treat 10/15/18 12:21 Consult to Hospice Referral Routine Comment: 10/17/18 12:56 Consult to Occupational Therapy Evaluate & Treat Comment: Leonel MAHONEY, continue to see pt, now home with Physician Instructions: Evaluate and treat Consult to Physical Therapy Evaluate & Treat Comment: Leonel MAHONEY, continjessikaue to see pt , now home with Physician Instructions: Evaluate and Treat Discharge provider: Nel Morgan DO Summary Discharge Diagnosis: 1. Acute and chronic hypoxemic and hypercarbic respiratory failure, present on admission. Acute portion resolved. 2. Acute COPD exacerbation, present on admission. Resolving. 3. Acute bronchopulmonary aspergillosis, present on admission. Active. 4. Acute RUL community acquired pneumonia, present on admission. Active. 5. Acute catheter associated urinary tract infection, present on admission. Active 6. Diabetes mellitus type II, non-insulin using, chronic, present on admission. Stable. 7. Anxiety, chronic, present on admission. Stable. 8. CAD and hyperlipidemia, chronic, present on admission. Stable. 9. BPH with acute urinary retention, chronic, present on admission. Stable. Hospital Course: Chacorta Yanes is a 68-year-old male with past medical history significant for CAD status post coronary catheterization, hyperlipidemia, chronic hypoxemic and hypercapneic respiratory failure due to COPD on 3L continuous oxygen who presented with progressive shortness of breath and admitted for acute on chronic hypoxemic failure, right upper lobe pneumonia, COPD exacerbation, and catheter associated UTI. 1. Acute and chronic hypoxemic and hypercarbic respiratory failure, present on admission. Acute portion resolved. -Continued supplemental oxygen to keep oxygen saturation 88-92% as higher oxygen saturations will increase retention of CO2. Baseline 3L continuous oxygen. -Continued trilogy as often and as long as tolerated and Afflow vest for secretion mobilization and drainage. Other techniques such as a 9 flutter/Acapella valve, coughing techniques, manual CPT ect) have been ineffective due to the severity of his condition. -Patient has end stage COPD and highly recommend hospice but patient has elected not to pursue hospice at this time. He will continue outpatient management per pulmonary. 2. Acute COPD exacerbation, present on admission. Resolving. Patient has end stage COPD and has been declining significantly over last 1-2 months. He is relatively (uses for short period of time and only mouthpiece) not compliant with Trilogy at the SNF due to severe claustrophobia. -Patient requires a high frequency chest wall oscillation vest (Afflovest) for secretion mobilization and drainage. Other techniques such as a 9 flutter/Acapella valve, coughing techniques, manual CPT ect) have been ineffective due to the severity of their condition. -Continued nebulizers, supplemental oxygen, prednisone 40 mg daily (until follow-up with care program resident) and antibiotics with minocycline for resistant Stenotrophomonas. 3. Acute bronchopulmonary aspergillosis, present on admission. Active. -Continued itraconazle/prednisone per infectious disease and pulmonology and follow-up as directed. 4. Acute RUL community acquired pneumonia, present on admission. Active. -Patient has resistant stenotrophomonas discontinued Tigecyline and switched to minocycline 100 mg twice daily for 21 days total per infectious disease, Dr. Isaacs. 5. Acute catheter associated urinary tract infection, present on admission. Active -Urine culture grew staphylococcus lugudensis and enterococcus which is covered by minocycline per infectious disease, Dr. Isaacs. 6. Diabetes mellitus type II, non-insulin using, chronic, present on admission. Stable. -Hemoglobin A1C 7.6% on 09/25. -Held metformin and restarted at time of discharge. -Continued lantus 20 units daily at bedtime and medium dose correctional scale insulin while on high dose steroids. 7. Anxiety, chronic, present on admission. Stable. -Continued Ativan 1 mg PO every 8 hours as needed for anxiety. 8. CAD and hyperlipidemia, chronic, present on admission. Stable. -Continued home aspirin 81 mg daily and atorvastatin 20 mg daily at bedtime. 9. BPH with acute urinary retention, chronic, present on admission. Stable. -He has had several episodes previously of urinary retention and Salas catheter was placed. -Continued tamsulosin 0.4 mg daily. -Discontinued salas and did not replace as he was voiding without difficulty. Status at Discharge Functional status at discharge: uses cane/walker Overall status at discharge: patient is not back to baseline (slowly declining with end stage COPD) Exam Vital Signs (past 8 hours): - 10/17/18 23:50 10/18/18 00:30 10/18/18 07:14 Temperature 97.3 F L Pulse Rate 65 74 Respiratory Rate 20 24 Blood Pressure 138/77 Pulse Oximetry 97 97 99 Fraction of Inspired Oxygen 32 Oxygen Delivery Method Nasal Cannula Oxygen Flow Rate 3 Narrative Exam Narrative: General: Elderly gentleman sitting in bed and in no acute distress, appears chronically ill, well-developed, well-nourished, appropriately interactive. HEENT: Normocephalic, atraumatic. External ears without defect. Pupils equal, round, and reactive to light and accommodation. Anicteric sclerae, moist conjunctivae, and no lid lag. Neck: Supple with full range of motion. No lymphadenopathy or thyromegaly. Cardiovascular: Regular rate and rhythm without murmurs, rubs, or gallops appreciated. Pulmonary: Very little air movement. Diminished lung sounds throughout with scattered rhonchi and wheeze. No rales or crackles. Mild use of accessory muscles. Pursed lip breathing. Abdomen: Soft, bowel sounds present, nontender, nondistended. No hepatosplenomegaly or masses appreciated. Extremities: No clubbing or cyanosis. Minimal bipedal edema. Skin: Normal temperature, turgor, and texture; no rash, ulcers, or subcutaneous nodules appreciated. Neurological: Cranial nerves grossly intact. Psychiatric: Normal mood and affect. Anxious but improved. Alert and oriented to person, place, and time. Objective Labs Result Diagrams: 10/16/18 04:44 10/18/18 06:12 Labs: Laboratory Results - last 24 hr 10/18/18 10/18/18 10/18/18 06:12 06:12 06:12 Sodium 139 Potassium 5.0 Chloride 97 L Carbon Dioxide 37 H BUN 40 H Creatinine 0.40 L Estimated GFR > 60.0 BUN/Creatinine Ratio 100.0 H Glucose 137 H D Calcium 9.4 Magnesium 2.1 Procalcitonin < 0.05 Discharge Plan Discharge Plan Patient Disposition: Home Health Service Transfer to: Home Health, Other Discharge comment: You are being discharged home with [facility] for physical therapy, occupational therapy and nursing. Continue itraconazole 200 mg twice daily and prednisone at 40 mg daily until you follow up with your Infectious Disease, Dr. Isaacs, and your care program resident, Dr. Moore respectively. You have been started on minocycline 100 mg twice daily for 3 weeks to treat stenotrophomonas. Continue trilogy and your Afflovest as often and as long as tolerated. Continue supplemental oxygen at 3 L continuous daily. he may use DuoNeb every 4 hr and albuterol neb every 2 hr as needed for shortness of breath or wheezing. Continue Advair 1 inhalation twice daily. Albuterol and Spiriva inhalers only as needed if nebulizers are not available such as traveling. Discharge Med Rec/Prescriptions Prescriptions: New minocycline 100 mg capsule 100 mg PO BID Qty: 36 RF: 0 lorazepam 1 mg Tablet 1 mg PO Q8H PRN (Reason: Anxiety) Qty: 30 RF: 0 prednisone 20 mg tablet 40 mg PO DAILY Qty: 60 RF: 0 Continued guaifenesin [Mucinex] 600 MG tablet extended release 12hr 600 mg PO Q12H Qty: 0 RF: 0 multivitamin [Multiple Vitamins] 1 EACH tablet 1 tab PO DAILY Qty: 0 RF: 0 cholecalciferol (vitamin D3) [Vitamin D3] 1,000 UNIT tablet 1,000 unit PO DAILY Qty: 0 RF: 0 Spiriva with HandiHaler 18 MCG capsule, w/inhalation device 1 puff INH DAILY Qty: 0 RF: 0 atorvastatin [Lipitor] 20 mg tablet 20 mg PO BEDTIME Qty: 90 RF: 1 furosemide 40 mg tablet 40 mg PO DAILY PRN (Reason: SOB) Qty: 30 RF: 5 Spacer: Inhaler Spacer Device 1 ea Inhalation DIRECTED RF: 0 Advair Diskus 250-50 mcg/dose Blister With Device 1 inh INHALATION Q12H RF: 0 aspirin 81 mg Tablet,Delayed Release (Dr/Ec) 81 mg PO DAILY RF: 0 tamsulosin [Flomax] 0.4 mg capsule 0.4 mg PO DAILY RF: 0 magnesium hydroxide [Milk of Magnesia] 400 mg/5 mL Suspension 30 ml PO PRN PRN (Reason: no BM x 3 days) RF: 0 bisacodyl 10 mg Suppository 10 mg NM PRN PRN (Reason: Constipation) RF: 0 metformin 1,000 mg Tablet 1,000 mg PO BID RF: 0 Fleet Enema 19-7 gram/118 mL Enema 1 ea NM PRN PRN (Reason: Constipation) RF: 0 Proventil HFA 90 mcg/actuation Hfa Aerosol Inhaler 2 puff Inhalation Q4H PRN (Reason: Shortness Of Breath) RF: 0 bisacodyl 5 mg Tablet 5 - 10 mg PO PRN PRN (Reason: MILD TO SEVERE CONSTIPATION) RF: 0 itraconazole 200 mg Tablet 400 mg PO BID RF: 0 pantoprazole 40 mg tablet,delayed release (DR/EC) 40 mg PO DAILY RF: 0 Changed ipratropium-albuterol 0.5 mg-3 mg(2.5 mg base)/3 mL Solution For Nebulization 1 dose Inhalation Q4H PRN (Reason: Shortness Of Breath) Qty: 0 RF: 0 albuterol sulfate 2.5 mg /3 mL (0.083 %) Solution For Nebulization 3 ml Inhalation Q2H PRN (Reason: Shortness Of Breath Or Wheezing) Qty: 0 RF: 0 Discontinued lorazepam 0.5 mg tablet 0.5 mg PO TID Qty: 60 RF: 2 prednisone 10 mg tablet 10 mg PO DAILY RF: 0 prednisone 20 mg tablet 40 mg PO DAILY Qty: 28 RF: 0 Follow up/Referrals: Rubens Olivier MD [Primary Care Provider] - 1 Week (*appt:10/26 @ 11:[address] olivier @ [facility] [phone] please arrive 15 minutes prior to your scheduled appointment ) Beryl Moore MD [Non-Staff] - 2 Weeks (*[facility]- DR Moore office will be call you for a 2 week follow up appointment @ their clinic [phone]-if you do not here from them please call to make sure they have you scheduled ) Gilbert Isaacs [Non-Staff] - 2 Weeks (*dr isaacs clinical medical transcriptionist will call you with a hospital follow up appointment for 2weeks from discharge if you do not heare from them please call [phone] and request the appointment again ) Provider Discharge Instructions Diet: Diet as Tolerated Activity: Activity as tolerated with forward wheeled walker and physical therapy Oxygen: 3 L continuous supplemental oxygen and triology Visit Report/Discharge Packet Instructions: DI for Chronic Obstructive Pulmonary Disease Visit Report Forms: Stroke Signs & Symptoms Discharge Data Primary Care Provider: Rubens Olivier Attending Provider: Nel Morgan Admit Date/Time: 10/14/18 12:26
[2018-10-18] MEDS: ASPIRIN EC 81 MG TABLET PO (08:16)
[2018-10-18] MEDS: guaiFENesin ER 600 MG TAB 1200 MG PO ×2 (08:16→19:44)
[2018-10-18] MEDS: predniSONE 20 MG TABLET 40 MG PO (08:16)
[2018-10-18] MEDS: ITRACONAZOLE 200 MG 200 EACH PO ×2 (08:17→17:03)
[2018-10-18] MEDS: TAMSULOSIN 0.4 MG CAPSULE PO (08:17)
[2018-10-18] MEDS: PANTOPRAZOLE 40 MG TABLET PO (08:17)
[2018-10-18] MEDS: HEPARIN 5,000 UNIT/ML VIAL 5000 UNIT SUBCUT ×2 (11:41→19:44)
--- NOTE | 2018-10-18 13:56 | PT.IIE ---
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) Type 2 diabetes mellitus without complications (10/14/18) Hyperlipidemia, unspecified (10/14/18) Hyperkalemia (10/14/18) Anxiety disorder, unspecified (10/14/18) Atherosclerotic heart disease of [place] coronary artery without angina pectoris (10/14/18) Unspecified bacterial pneumonia (10/14/18) Chronic obstructive pulmonary disease with (acute) exacerbation (10/14/18) Chronic obstructive pulmonary disease, unspecified (10/14/18) Acute and chronic respiratory failure, unspecified whether with hypoxia or hypercapnia (10/14/18) Benign prostatic hyperplasia without lower urinary tract symptoms (10/14/18) Other mechanical complication of indwelling urethral catheter, initial encounter (10/14/18) Surgical History (Last Reviewed 10/14/18 @ 21:35 by NISA Kincaid) H/O cardiac catheterization (Resolved 2010) S/P small bowel resection (Resolved 03/2015) Hx of hernia repair (Resolved 2008) S/P colon resection (Resolved 2010) Hx of cataract surgery (Resolved 2014) Medical History (Last Reviewed 10/14/18 @ 21:35 by NISA Kincaid) Anxiety (Chronic Unknown) Peripheral vascular disease (Chronic Unknown) Hx of small bowel obstruction (Resolved 03/2015) Hyperlipemia (Chronic Unknown) Nontuberculous mycobacterial infection (Chronic 2014) Coronary artery disease (Chronic Unknown) History of colon cancer (Resolved ~2010) BPH (benign prostatic hyperplasia) (Chronic Unknown) COPD (chronic obstructive pulmonary disease) (Chronic Unknown) Diabetes (Chronic Unknown) COPD (chronic obstructive pulmonary disease) (Inactive) Dependent edema (Inactive) Physical Therapy Inpatient Evaluation/Re-Eval M1 PT/OT-IP Prior Functional Status Start: 10/15/18 10:19 Freq: NEEDED Status: Active Protocol: Document 10/15/18 10:00 (Rec: 10/15/18 10:43 [id number]) Medical Review Prior Functional Status Medical History Reviewed Yes Communication No deficits noted. Able to make needs known. Mobility and Gait Pt was d/c to [facility] since last admission in Sep. Pt stated he was able to amb 100 ft couple times a day but progressively declined to 30 ft a day with his 4WW. Pt did need nursing staff from [facility] to supervise/ SBA. Activities of Daily Living and IADL's 1 PA CGA/SBA for ADLs and min to mod A for IADLs from nursing staff from [facility]. Social History Household Members spouse family Living Arrangements Skilled Nurse Facility Number of Stairs To Enter/Railing? Ramp to enter the house Home Environment Standard Height Toilet High Toilet Walk in Shower Home Equipment Four Wheel Walker Manual Wheelchair Power Wheelchair/Scooter Employment Status Retired Additional Social History Comment Pt's used to live in a one level house with his grandson who is able to assist at times . Pt was admitted to for 2 weeks due to acute PNA since early Sep. He was then d/c to [facility] for cont rehab and to address his medical condition. Pt readmitted to on due to acute exabation of COPD, SOB and R upper lobe PNA . Pt states he used 3L O2 in [facility] and was able to 100 ft for multiplet times a day at first but slowly decline to 30 ft. He reports he experienced increased weakness and SOB lately. M1 PT/OT-IP Prior Functional Status Start: 10/15/18 14:24 Freq: NEEDED Status: Active Protocol: Document 10/18/18 14:50 [facility] (Rec: 10/18/18 15:13 [facility] [id number]) Medical Review Prior Functional Status Medical History Reviewed Yes Communication No deficits noted. Able to make needs known. Mobility and Gait Pt was d/c to [facility] since last admission in Sep. Pt stated he was able to amb 100 ft couple times a day but progressively declined to 30 ft a day with his 4WW. Pt did need nursing staff from [facility] to supervise/ SBA. Activities of Daily Living and IADL's 1 PA CGA/SBA for ADLs and min to mod A for IADLs from nursing staff from [facility]. Social History Household Members spouse family Living Arrangements House Number of Stairs To Enter/Railing? Ramp to enter the house Home Environment Standard Height Toilet High Toilet Walk in Shower Home Equipment Four Wheel Walker Manual Wheelchair Power Wheelchair/Scooter Employment Status Retired Additional Social History Comment Pt's used to live in a one level house with his grandson, 15 years old, who is able to assist at times. Pt was admitted to for 2 weeks due to acute PNA since early Sep. He was then d/c to [facility] for cont rehab and to address his medical condition. Pt readmitted to on 10/14/18 due to acute exabation of COPD , SOB and R upper lobe PNA. Pt states he used 3L O2 in [facility] and was able to 100 ft for multiplet times a day at first but slowly decline to 30 ft. He reports he experienced increased weakness and SOB lately. Pt to be getting BSC, try table, and hospital bed. M2 PT-IP Current Condition Start: 10/15/18 10:19 Freq: NEEDED Status: Active Protocol: Document 10/18/18 13:56 AB (Rec: 10/18/18 16:04 AB [email or web address]) Physical Therapy Current Condition Current Condition Evaluation Date 10/18/18 Treatment Diagnosis COPD exacerbation; difficulty in walking Onset Date 10/14/18 Precautions Other Precautions O2 sat, falls M3 PT-IP Subjective Start: 10/15/18 10:19 Freq: NEEDED Status: Active Protocol: Document 10/18/18 13:56 AB (Rec: 10/18/18 16:04 AB [email or web address]) Subjective Physical Therapy Visit Type Type Initial Evaluation Visit Start Time 13:56 Visit Stop Time 14:24 Total Visit Minutes 28 Number of READING INSTRUCTOR Visits 0 Physical Therapy Visit Comments Patient Comments pt requires encouragement to participate M4 PT-IP Mobility and Gait Start: 10/15/18 10:19 Freq: NEEDED Status: Active Protocol: Document 10/18/18 13:56 AB (Rec: 10/18/18 16:04 AB [email or web address]) PT-Bed Mobility Assessment Supine to Sit Supine to Sit Standby Assistance Sit to Supine Sit to Supine Standby Assistance Scooting Scooting to Edge of Bed Standby Assistance PT-Transfer Assessment Sit to and From Stand Sit to and from Stand Moderate Assistance Maximum Assistance 1 Person Assistance Use of Upper Extremities Equipment Transfer Assistive Device 4 Wheeled Walker Orthotic/Prosthetic Devices or Brace: No Transfers Transfer Destination Bed Transfer Technique Stand Pivot Transfer Ability Level of Assist Moderate Assistance Maximum Assistance 1 Person Assistance Use of Upper Extremities Comments Mobility Comments pt completed sit <.stand from EOB x 3 attempts requiring mod to max A and max cues. pt has difficulty straigthening B knees to stand up and relies a lot on BLE to stay up right. pt used 4WW for support and completed a pivot transfer to sit on to 4WW. O2 sat 98-99% but with (+) SOB. pt was able to tolerate sitting on 4WW ~ 10 min and completed sit to stand from 4WW mod to max A and stand pivot transfer to the bed mod to max A and max cues. (+) B knee buckling with transfer requiring mod to max A for steadiness and safety. pt completed scooting towards HOB SBA . Gait Assessment Comments Gait Comments unable at this time due to (+) SOB, decrease activity tolerance and (+) B knees buckling PT-Balance Assessment Sitting Balance and Reactions Static Sitting Balance Ability Good Dynamic Sitting Balance Ability Good Standing Balance and Reactions Static Standing Balance Ability Poor Dynamic Standing Balance Ability Poor Device Used 4WW M5 PT-IP Objective Assessments Start: 10/15/18 10:19 Freq: NEEDED Status: Active Protocol: Document 10/18/18 13:56 AB (Rec: 10/18/18 16:04 AB [email or web address]) Orientation Orientation/Cognition Level of Alertness Alert Orientation Name Place Situation Language Function Ability No Deficits Noted Gross Range of Motion Lower Extremity ROM Assessment Within Functional Limits Strength Lower Extremity Strength Assessment Bilaterally Impaired Hip 4-/5 Knee 3+/5 Coordination Assessment Gross Coordination Gross Coordination WNL Muscle Tone Muscle Tone WNL Yes M6 PT-IP Treatment Start: 10/15/18 10:19 Freq: NEEDED Status: Active Protocol: Document 10/18/18 13:56 AB (Rec: 10/18/18 16:04 AB [email or web address]) Physical Therapy Treatment Education Education Provided Safety M7 PT-IP Assessment and Plan Start: 10/15/18 10:19 Freq: NEEDED Status: Active Protocol: Document 10/18/18 13:56 AB (Rec: 10/18/18 16:04 AB [email or web address]) PT Summary Assessment and Plan Potential Rehabilitation Potential Fair Status of Condition at Evaluation Evolving Summary Impairments Pain ROM Strength Balance Coordination Sensation Tone Cognition Bed Mobility Transfers Gait Activity Tolerance Progress Towards Goals Slow Progress due to Activity Tolerance Assessment Summary pt requiring mod to max A with mobility and presents with decrease activity tolerance, ( +) B knee buckling during transfers. informed spouse regarding recommendations for d/c home (equipement, home set up and pt activities and energy conservation). spouse stated that they have set up home health services and hopefully will be able to get a hospital bed. spouse stated that they are hoping that pt can go home tomorrow. pt currently has decrease activity tolerance and unable to tolerate much sitting up and with (+) B knee buckling during transfers. recommending pt to go home via ambulance for safety. Goals Bed Mobility Goal Independent Transfer Goal Contact Guard Assistance Four Wheeled Walker Gait Goal Contact Guard Assistance Four Wheel Walker Gait Distance 50 Days to Meet Goals 5 Frequency of Treatment Frequency Of Treatment Once a Day Treatment Plan Physical Therapy Treatment Plan Bed Mobility Training Transfer Training Gait Training Therapeutic Exercise Balance Retraining Discharge Planning Hot or Cold Pack Neuromuscular Re-ed Coordination Retraining Manual Therapy Other Recommendations and Next Treatment transfes, ambulation if Focus appropriate Recommendations To Nursing Amount of Assist Needed 1 Person Assist Discharge Recommendations PT Discharge Recommendations Home with 27/02 Assist Home Health
--- NOTE | 2018-10-18 14:58 | CM.DPC ---
DCP Cont: Per discussion with Khadijah Cardiac Care Nurse, faxed 81 page ongoing referral to [facility] at fax # [phone]. Fax confirmation received and scanned in. Florinda Sandoval, Care Sales And Training Specialist
--- NOTE | 2018-10-18 15:05 | CM.DPC ---
DCP: continued: Spoke with Dr. Morgan re POC and expectation that pt will be ready for d/c to home tomorrow. Conferred also with PT/OT and met now with pt and his Gina. Introduced self and role. Gina confirms that pt is current with [facility] and the intake person at [place] is alerted to the likely d/c plan of tomorrow and need for continued RN as well as OT and PT resumption. Clinical has been faxed and will send on the resumption orders at d/c. Gina is given information re renting a hospital bed and is calling [facility] now to set this up. Is unclear if pt will go home via ambulance tomorrow. Will see at that time. He does require significant assistance to mobilize and most importantly her becomes very SOB with any exertion. If pt does not meet medical necessity for this pt's is considering hiring [facility] transport and has had an initial discussion with the [employer]. Her 15 year old grandson, who lives with the couple, will be home from High School tomorrow at 1500 so will be available to assist pt to get settled at home. Gina notes she is still recovering from an OR so she is careful with what she does physically. [facility] info visit was given yesterday by Julissa as per plan. Pt and Gina again declined this pathway as they do not feel it reflects pt's current goals. Julissa did discuss this with Dr. Osei yesterday. Pt does remain a DNR code status. Darnell is involved in pt's home Trilogy and is working on some specifics to make it more comfortable for pt. She did speak with Dr. Osei yesterday. She will followup with Dr. Morgan today to make sure she has all that is needed to facilitate this. Gina and pt are updated re this plan. Will check in tomorrow and follow prn to assist in the d/c process.
--- NOTE | 2018-10-18 15:14 | OT.IP.EVAL ---
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[place] coronary artery without angina pectoris (10/14/18) Unspecified bacterial pneumonia (10/14/18) Chronic obstructive pulmonary disease with (acute) exacerbation (10/14/18) Chronic obstructive pulmonary disease, unspecified (10/14/18) Acute and chronic respiratory failure, unspecified whether with hypoxia or hypercapnia (10/14/18) Benign prostatic hyperplasia without lower urinary tract symptoms (10/14/18) Other mechanical complication of indwelling urethral catheter, initial encounter (10/14/18) Past Medical History (Last Reviewed 10/14/18 @ 21:35 by NISA Kincaid) Anxiety (Chronic Unknown) Peripheral vascular disease (Chronic Unknown) Hx of small bowel obstruction (Resolved 03/2015) Hyperlipemia (Chronic Unknown) Nontuberculous mycobacterial infection (Chronic 2014) Coronary artery disease (Chronic Unknown) History of colon cancer (Resolved ~2010) BPH (benign prostatic hyperplasia) (Chronic Unknown) COPD (chronic obstructive pulmonary disease) (Chronic Unknown) Diabetes (Chronic Unknown) COPD (chronic obstructive pulmonary disease) (Inactive) Dependent edema (Inactive) Surgical History (Last Reviewed 10/14/18 @ 21:35 by NISA Kincaid) H/O cardiac catheterization (Resolved 2010) S/P small bowel resection (Resolved 03/2015) Hx of hernia repair (Resolved 2008) S/P colon resection (Resolved 2010) Hx of cataract surgery (Resolved 2014) Occupational Therapy Inpatient Evaluation/Re-Eval M1 PT/OT-IP Prior Functional Status Start: 10/15/18 14:24 Freq: NEEDED Status: Active Protocol: Document 10/18/18 14:50 [facility] (Rec: 10/18/18 15:13 [facility] [id number]) Medical Review Prior Functional Status Medical History Reviewed Yes Communication No deficits noted. Able to make needs known. Mobility and Gait Pt was d/c to [facility] since last admission in Sep. Pt stated he was able to amb 100 ft couple times a day but progressively declined to 30 ft a day with his 4WW. Pt did need nursing staff from [facility] to supervise/ SBA. Activities of Daily Living and IADL's 1 PA CGA/SBA for ADLs and min to mod A for IADLs from nursing staff from [facility]. Social History Household Members spouse family Living Arrangements House Number of Stairs To Enter/Railing? Ramp to enter the house Home Environment Standard Height Toilet High Toilet Walk in Shower Home Equipment Four Wheel Walker Manual Wheelchair Power Wheelchair/Scooter Employment Status Retired Additional Social History Comment Pt's used to live in a one level house with his grandson, 15 years old, who is able to assist at times. Pt was admitted to for 2 weeks due to acute PNA since early Sep. He was then d/c to [facility] for cont rehab and to address his medical condition. Pt readmitted to on 10/14/18 due to acute excerbation of COPD , SOB and R upper lobe PNA. Pt states he used 3L O2 in [facility] and was able to 100 ft for multiplet times a day at first but slowly decline to 30 ft. He reports he experienced increased weakness and SOB lately. Pt to be getting BSC, tray table, and hospital bed. Pt to be set up in the front room with hospital bed, BSC, and other needs at home. Case management assisting pt and regarding hospital bed needs. M2 OT-IP Current Condition Start: 10/15/18 14:24 Freq: Status: Active Protocol: Document 10/18/18 14:50 [facility] (Rec: 10/18/18 15:13 [facility] [id number]) Occupational Therapy Current Condition Current Condition Evaluation Date 10/18/18 Treatment Diagnosis COPD exacerbation Diagnosis Onset Date 10/14/18 M3 OT- IP Subjective and Pain Start: 10/15/18 14:24 Freq: Status: Active Protocol: Document 10/18/18 14:50 [facility] (Rec: 10/18/18 15:13 [facility] [id number]) OT- Subjective Occupational Therapy Visit Type Type Initial Evaluation Visit Start Time 13:55 Visit Stop Time 14:35 Total Visit Minutes 40 Notes MD states pt refusing Hospice and now wanting to go home with Home Health and therefore for therapy to get back in work with pt. Occupational Therapy Visit Comments Patient Comments Pt needing lots of encouragement to get up. Pt's present for OT/PT eval and training. Pt's states did not need to practice as already knows how to assist pt. OT Pain Assessment Pain When Pain Assessed At Rest Pain Present Pain Present Denied Pain M4 OT- IP ADL's Start: 10/15/18 14:24 Freq: Status: Active Protocol: Document 10/18/18 14:50 [facility] (Rec: 10/18/18 15:13 [facility] [id number]) OT ADL-Dressing General Eval Lower Body Dressing Ability Total Assistance Comments OT Dressing Comments Pt dependent for socks today. Showed pt LB dressing AED so able to assist more when not feeling well-district court bailiff, sock aid , long handled shoe horn OT ADL-Bathing Comments OT Bathing Comments Pt just sponges off at home. M6 OT- IP Functional Cognition Start: 10/15/18 14:24 Freq: Status: Active Protocol: Document 10/18/18 14:50 [facility] (Rec: 10/18/18 15:13 [facility] [id number]) Cognitive Factors Limiting Selfcare Function Cognitive Ability Level of Alertness Alert Patient Orientation Name Place Situation Attention Span Ability Capable of Focused Attention Capable of Sustained Attention Ability to Follow Commands Able to Follow One Step Commands Safety Awareness Underestimates Need for Assistance Cognitive Comments Cognitive Assessment Comments Pt able to follow one step commands, needing vc for safety , lock the brakes on 4WW before getting up. M7 OT- IP Mobility and Balance Start: 10/15/18 14:24 Freq: Status: Active Protocol: Document 10/18/18 14:50 [facility] (Rec: 10/18/18 15:13 [facility] [id number]) OT- Bed Mobility Assessment Rolling Type of Rolling Roll to Left Bilateral Supine to Sit Supine to Sit Assist Standby Assistance 1 Person Assistance Head of Bed Elevated OT-Transfer Assessment Sit to and From Stand Sit to and from Stand Moderate Assistance Maximum Assistance 1 Person Assistance Devices Transfer Assistive Devices Gait Belt 4 Wheeled Walker Comments Mobility Comments Pt today needing more assist especially from sit to stand MOD/MAX AX1 versus just CGA the other day. PT noted that pt's legs also tends to buckle . Pt on 3L of o2. Encourage to get up at home even if not feeling well to just try to sit to the edge of the bed, to try to start off with getting up for meals and to the BSC and as tolerated to slowly build up. OT- Balance Assessment Sitting Balance and Reactions Static Sitting Balance Ability Fair Dynamic Sitting Balance Ability Poor Standing Balance and Reactions Static Standing Balance Ability Poor Dynamic Standing Balance Ability Poor M8 OT- IP Objective Assessments Start: 10/15/18 14:24 Freq: Status: Active Protocol: Document 10/18/18 14:50 [facility] (Rec: 10/18/18 15:13 [facility] [id number]) OT Gross Range of Motion Upper Extremity Range of Motion Assessment Within Functional Limits OT Strength Comments Strength Comments WFL for age and lifestyle. M9 OT- IP Assessment and Plan Start: 10/15/18 14:24 Freq: Status: Active Protocol: Document 10/18/18 14:50 [facility] (Rec: 10/18/18 15:13 [facility] [id number]) OT Summary Assessment and Plan Potential Rehabilitation Potential Fair Analytic Complexity at Evaluation Low Summary OT Impairments Balance Functional Cognition Functional Mobility Grooming Dressing Toileting Bathing Toilet Transfers Shower Transfers Progress Towards Goals Slow Progress due to Medical Issues Slow Progress due to Activity Tolerance Slow Progress due to Cognition Assessment Summary Pt low complexity and main barriers are decreased activity tolerance, getting into the house as pt fluctuates daily on need for assistance. Pt would benefit from assist /transport to he pt home and into the house as he needs O2 and at times may need pending fatigue. Goals Grooming Goal Standby Assistance Dressing Goal Moderate Assistance Toileting Goal Minimal Assistance Bathing Goal Moderate Assistance Toilet Transfer Goal Moderate Assistance OT-Other Goals Goals for grooming in sitting. Days to Meet Goals 7 Frequency of Treatment Frequency Of Treatment Once a Day Treatment Plan OT Treatment Plan ADL Training Functional Cognition Training Functional Mobility Patient/Family Education Discharge Planning Discharge Recommendations OT Discharge Recommendations Home with 27/02 Assist Home Health
--- NOTE | 2018-10-18 16:35 | P.PN_ITS ---
Subjective Date Patient Seen: 10/18/18 Interval history: Chacorta Yanes is a 68-year-old male with past medical history significant for CAD status post coronary catheterization, hyperlipidemia, chronic hypoxemic and hypercapneic respiratory failure due to COPD on 3L continuous oxygen who presented with progressive shortness of breath and admitted for acute on chronic hypoxemic failure, right upper lobe pneumonia, COPD exacerbation, and catheter associated UTI. The patient is resting in bed. He appears chronically ill. He continues to endorse chronic shortness of breath and cough which is near baseline. He is on his baseline oxygen requirements of 3 L. He uses trilogy intermittently with mouth piece for short time intervals. He is trying to incorporate mask but due to claustrophobia does not tolerate this much. I am very familiar with the patient and he appears to most comfortable I have seen him any of his admissions. He denies headache, chest pain, abdominal pain, nausea, vomiting, fever, chills, diarrhea or constipation. He is voiding without difficulty. He reports he feels his bowels are moving and will have a bowel movement soon. He is up ambulating minimally with assistance due to respiratory fatigue. Exam Vital Signs (past 8 hours): - 10/18/18 11:10 10/18/18 15:13 10/18/18 15:27 Temperature 98.0 F Pulse Rate 81 88 89 Respiratory Rate 22 22 20 Blood Pressure 143/67 H Pulse Oximetry 98 99 96 Fraction of Inspired Oxygen 32 Oxygen Delivery Method Nasal Cannula Oxygen Flow Rate 3 Narrative Exam Narrative: General: Elderly gentleman sitting in bed and in no acute distress, appears chronically ill, well-developed, well-nourished, appropriately interactive. HEENT: Normocephalic, atraumatic. External ears without defect. Pupils equal, round, and reactive to light and accommodation. Anicteric sclerae, moist conjunctivae, and no lid lag. Neck: Supple with full range of motion. No lymphadenopathy or thyromegaly. Cardiovascular: Regular rate and rhythm without murmurs, rubs, or gallops appreciated. Pulmonary: Very little air movement. Diminished lung sounds throughout with scattered rhonchi and wheeze. No rales or crackles. Mild use of accessory muscles. Abdomen: Soft, bowel sounds present, nontender, nondistended. No hepatosplenomegaly or masses appreciated. Extremities: No clubbing or cyanosis. Minimal bipedal edema. Skin: Normal temperature, turgor, and texture; no rash, ulcers, or subcutaneous nodules appreciated. Neurological: Cranial nerves grossly intact. Psychiatric: Normal mood and affect. Anxious but improved. Alert and oriented to person, place, and time. Objective Labs Result Diagrams: 10/16/18 04:44 10/18/18 06:12 Labs: Laboratory Results - last 24 hr 10/18/18 10/18/18 10/18/18 06:12 06:12 06:12 Sodium 139 Potassium 5.0 Chloride 97 L Carbon Dioxide 37 H BUN 40 H Creatinine 0.40 L Estimated GFR > 60.0 BUN/Creatinine Ratio 100.0 H Glucose 137 H D Calcium 9.4 Magnesium 2.1 Procalcitonin < 0.05 Assessment & Plan Assessment & Plan narrative: Chacorta Yanes is a 68-year-old male with past medical history significant for CAD status post coronary catheterization, hyperlipidemia, chronic hypoxemic and hypercapneic respiratory failure due to COPD on 3L continuous oxygen who presented with progressive shortness of breath and admitted for acute on chronic hypoxemic failure, right upper lobe pneumonia, COPD exacerbation, and catheter associated UTI. 1. Acute and chronic hypoxemic and hypercarbic respiratory failure, present on admission. Acute portion resolved. -Continue supplemental oxygen to keep oxygen saturation 88-92% as higher oxygen saturations will increase retention of CO2. Baseline 3L continuous oxygen. -Patient has end stage COPD and highly recommend hospice but patient has elected not to pursue hospice at this time. He will continue outpatient management per pulmonary. 2. COPD exacerbation, present on admission. Resolving. Patient has end stage COPD and has been declining significantly over last 1-2 months. He is relatively (uses for short period of time and only mouthpiece) not compliant with Trilogy at the SNF due to severe claustrophobia. -Patient requires a high frequency chest wall oscillation vest (Afflovest) for secretion mobilization and drainage. Other techniques such as a 9 f lutter/Acapella valve, coughing techniques, manual CPT ect) have been ineffective due to the severity of their condition. -Continue nebulizers, supplemental oxygen, steroids, and antibiotics with Tige cyline for resistant Stenotrophomonas. 3. Acute bronchopulmonary aspergillosis, present on admission. Active. -Continue itraconazle/prednisone per infectious disease and pulmonology. 4. Acute RUL community acquired pneumonia, present on admission. Active. -Patient has resistant stenotrophomonas discontinued Tigecyline and start minocycline 100 mg twice daily for 3weeks/21 days total per infectious disease, Dr. Milligan. 5. Acute catheter associated urinary tract infection, present on admission. Active -Urine culture grew staphylococcus lugudensis and enterococcus which is covered by minocycline per infectious disease, Dr. Milligan. 6. Diabetes mellitus type II, non-insulin using, chronic, present on admission. Stable. -Hemoglobin A1C 7.6% on 09/25. -Held metformin. -Continue lantus 20 units daily at bedtime and medium dose correctional scale insulin. Patient is on high dose steroids. 7. Anxiety, chronic, present on admission. Stable. -Continue as needed Ativan 1 mg every 8 hours. 8. CAD and hyperlipidemia, chronic, present on admission. Stable. -Continued home aspirin 81 mg daily and atorvastatin 20 mg daily at bedtime. 9. BPH with acute urinary retention, chronic, present on admission. Stable. -He has had several episodes previously of urinary retention and Salas catheter was placed. -Continue tamsulosin 0.4 mg daily. -Discontinued salas and will replace only if he continues to retain urine. Disposition: Anticipate discharge home with home health and medical equipment including rented hospital bed tomorrow.
[2018-10-18] MEDS: INSULIN ASPART 100 UNIT/ML INSULN PEN SUBCUT ×2 (17:04→21:26)
[2018-10-18] MEDS: ATORVASTATIN 20 MG TABLET PO (19:44)
[2018-10-18] MEDS: MINOCYCLINE HCL 100 MG CAPSULE PO (19:45)
[2018-10-18] MEDS: INSULIN GLARGINE 100 UNIT/ML 3ML PEN 20 UNIT SUBCUT (21:27)
[2018-10-19 00:45] VITALS: BP 111/78; PULSE 78; RESP 20; TEMP 36.5; O2SAT 93
--- NOTE | 2018-10-19 03:10 | PC.NURSE ---
Addendum entered by Sara Oglesby R.N. 10/19/18 05:00: Expressing anxiety over impending discharge today; medicated with Ativan. Original Note: Patient is mostly oriented, just off on date. Breath sounds with short expiratory phase and inspiratory crackles in bilateral bases. Admits to feeling SOB both at rest and with exertion. Has moist sounding cough which he states is occasionally productive but is scant and doesn't know what color sputum is. On oxygen at 3L/min per NC with sat of 98%. HRR. Denies nausea. BT present and is passing flatus. No recorded BM since 10/14 but patient stating he had BM 2 days ago. Voiding per urinal without problem. Able to turn self in bed. Has not gotten out of bed on this shift, but PT recommends 1 assist with walker to transfer. Does have a skin tear on right buttock that is unchanged in appearance from last noc. Denies pain. Fall risk score is moderate; bed alarm is activated. Refusing SCD's tonight. Plan is to DC later today.
[2018-10-19] MEDS: LORazepam 1 MG TABLET PO (04:59)
[2018-10-19] MEDS: FLUTICASONE/SALMETEROL 250/50 14 PUFF DISKUS INH (07:10)
[2018-10-19] MEDS: ALBUTEROL/IPRATROPIUM 3 ML AMPUL INH (07:10)
[2018-10-19 07:27] VITALS: PULSE 78; RESP 22; O2SAT 98
[2018-10-19 07:47] VITALS: BP 135/65; PULSE 75; RESP 22; TEMP 36.3; O2SAT 99
[2018-10-19] MEDS: ITRACONAZOLE 200 MG 200 EACH PO (08:53)
[2018-10-19] MEDS: predniSONE 20 MG TABLET 40 MG PO (08:54)
[2018-10-19] MEDS: HEPARIN 5,000 UNIT/ML VIAL 5000 UNIT SUBCUT (08:54)
[2018-10-19] MEDS: DOCUSATE 100 MG CAPSULE PO (08:54)
[2018-10-19] MEDS: PANTOPRAZOLE 40 MG TABLET PO (08:54)
[2018-10-19] MEDS: guaiFENesin ER 600 MG TAB 1200 MG PO (08:54)
[2018-10-19] MEDS: TAMSULOSIN 0.4 MG CAPSULE PO (08:54)
[2018-10-19] MEDS: MINOCYCLINE HCL 100 MG CAPSULE PO (08:54)
[2018-10-19] MEDS: ASPIRIN EC 81 MG TABLET PO (08:55)
[2018-10-19 09:00] VITALS: O2SAT 96
--- NOTE | 2018-10-19 09:45 | PT.IPTN ---
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) Type 2 diabetes mellitus without complications (10/14/18) Hyperlipidemia, unspecified (10/14/18) Hyperkalemia (10/14/18) Anxiety disorder, unspecified (10/14/18) Atherosclerotic heart disease of [place] coronary artery without angina pectoris (10/14/18) Unspecified bacterial pneumonia (10/14/18) Chronic obstructive pulmonary disease with (acute) exacerbation (10/14/18) Chronic obstructive pulmonary disease, unspecified (10/14/18) Acute and chronic respiratory failure, unspecified whether with hypoxia or hypercapnia (10/14/18) Benign prostatic hyperplasia without lower urinary tract symptoms (10/14/18) Other mechanical complication of indwelling urethral catheter, initial encounter (10/14/18) Physical Therapy Treatment Note M2 PT-IP Current Condition Start: 10/15/18 10:19 Freq: NEEDED Status: Active Protocol: Document 10/18/18 13:56 AB (Rec: 10/18/18 16:04 AB [email or web address]) Physical Therapy Current Condition Current Condition Evaluation Date 10/18/18 Treatment Diagnosis COPD exacerbation; difficulty in walking Onset Date 10/14/18 Precautions Other Precautions O2 sat, falls M3 PT-IP Subjective Start: 10/15/18 10:19 Freq: NEEDED Status: Active Protocol: Document 10/19/18 09:10 AMB (Rec: 10/19/18 09:45 AMB [email or web address]) Subjective Physical Therapy Visit Type Type Treatment Note Visit Start Time 09:10 Visit Stop Time 09:30 Total Visit Minutes 20 Number of MEDICAID ELIGIBILITY SPECIALIST Visits 0 Physical Therapy Visit Comments Patient Comments Pt's is in room and she would like to go over car transfer, pt hesitant. M4 PT-IP Mobility and Gait Start: 10/15/18 10:19 Freq: NEEDED Status: Active Protocol: Document 10/19/18 09:10 AMB (Rec: 10/19/18 09:45 AMB [email or web address]) PT-Transfer Assessment Sit to and From Stand Sit to and from Stand Minimal Assistance 1 Person Assistance Use of Upper Extremities Equipment Transfer Assistive Device 4 Wheeled Walker Transfers Transfer Destination Bed Transfer Technique Stand Pivot Transfer Ability Level of Assist Minimal Assistance 1 Person Assistance Comments Mobility Comments SpO2 98% on 3 L O2, HR 92-99 Increased SOB Gait Assessment Comments Gait Comments did not progress as pt is going home today and trying to conserve energy. M5 PT-IP Objective Assessments Start: 10/15/18 10:19 Freq: NEEDED Status: Active Protocol: Document 10/18/18 13:56 AB (Rec: 10/18/18 16:04 AB [email or web address]) Orientation Orientation/Cognition Level of Alertness Alert Orientation Name Place Situation Language Function Ability No Deficits Noted Gross Range of Motion Lower Extremity ROM Assessment Within Functional Limits Strength Lower Extremity Strength Assessment Bilaterally Impaired Hip 4-/5 Knee 3+/5 Coordination Assessment Gross Coordination Gross Coordination WNL Muscle Tone Muscle Tone WNL Yes M6 PT-IP Treatment Start: 10/15/18 10:19 Freq: NEEDED Status: Active Protocol: Document 10/18/18 13:56 AB (Rec: 10/18/18 16:04 AB [email or web address]) Physical Therapy Treatment Education Education Provided Safety M7 PT-IP Assessment and Plan Start: 10/15/18 10:19 Freq: NEEDED Status: Active Protocol: Document 10/19/18 09:10 AMB (Rec: 10/19/18 09:45 AMB [email or web address]) PT Summary Assessment and Plan Summary Assessment Summary Educated in car transfer setup. Transferred from bed to 4WW with Karena and cues for setup. Bed was higher than car will be. Also educated in squat pivot transfer if that works better. Pt will need physical assist and unfortunately son who will be assisting him is not here for training, so patient and will have to educate him. and patient are very sure that they are going home today, but it would have been better to educate son and actually practice car transfer , but that would take all of patient's energy, so just practiced in the room with family that was available.
--- NOTE | 2018-10-19 10:48 | CM.DPC ---
Addendum entered by Khadijah Toussaint LPN 10/19/18 10:56: DOMINIC # 2 is presented. Both pt and Gina confirm they very much wish the d/c to move forward for today. Original Note: DCP: continued: pt now with d/c to home orders. Checked in with pt and his Gina. Gina confirms that the hospital bed is coming this morning. She has someone at the house waiting to receive it. Pt is up sitting in the w/c, his own o2 in place. Both confirm that he is going home in the family car and their grandson will be at the house to help him up the ramp and get him settled. They wish to leave as soon as LAVERNE Mckoy has the paperwork completed. Pt plans to sit in the w/c at home until the bed is set up. Clarified again with Gina that the monthly rental will not be covered later by home health. If [facility] is ever involved they will take over the financial responsibility for the bed and any other DME. RT confirms that the Trilogy will be followed by Albertina/Maria Dolores and she has been in touch with RT today. Dr. Morgan confirms she did not see Albertina yesterday but that Dr. Osei had the specifics in place that Albertina needed. Resume HH RN plus add of OT/PT order is confirmed and faxed to [facility]. Abelardo is also notified by phone conversation of the d/c today. DOMINIC#@
--- NOTE | 2018-10-19 10:58 | PC.NURSE ---
Patient has stage 2 pressure injury to right upper sacrum. Superficial skin loss. Patient and spouse reports HH has been managing same pre-admission, and that injury was pre-admission. applied skin prep and alleyvn boarder foam drsg and re-inforced need to make sure HH continues to monitor. Patient and spouse confirm understanding off all instructions. Left w/ all belongings on home o2 in no distress w/ script for lorazepam. Instructed to pick out hand the other medications that were electronically sent to their pharmacy also.
== END 2018-10-19 11:02 | disposition home health service (06) | DRG 177 ==
LOC: ED 12:15 → AC 12:26 → ICU 16:52 → AC 10-17 14:17
PROVIDERS: Internal Medicine; Nurse Practitioner Adult Health; Admitting Provider Internal Medicine; Emergency Provider Emergency Medicine; Family Provider Student in an Organized Health Care Education/Training Program; PCP Student in an Organized Health Care Education/Training Program; Visit Provider Internal Medicine
DX: J15.8 Pneumonia due to other specified bacteria (principal); J96.21 Acute and chronic respiratory failure with hypoxia; J44.1 Chronic obstructive pulmonary disease with (acute) exacerbation; N39.0 Urinary tract infection, site not specified; J44.0 Chronic obstructive pulmonary disease with (acute) lower respiratory infection; B44.0 Invasive pulmonary aspergillosis; Z99.81 Dependence on supplemental oxygen; T83.098A Other mechanical complication of other urinary catheter, initial encounter; B96.20 Unspecified Escherichia coli [E. coli] as the cause of diseases classified elsewhere; N40.0 Benign prostatic hyperplasia without lower urinary tract symptoms; E11.51 Type 2 diabetes mellitus with diabetic peripheral angiopathy without gangrene; Z79.84 Long term (current) use of oral hypoglycemic drugs; I25.10 Atherosclerotic heart disease of native coronary artery without angina pectoris; Z87.891 Personal history of nicotine dependence; I49.9 Cardiac arrhythmia, unspecified
CPT/HCPCS: 36415; 36600; 71045; 80048; 80053; 81001; 82550; 82805; 82962; 83605; 83735; 83880; 84145; 84484; 85025; 86060; 87070; 87077; 87086; 87147; 87186; 87205; 87449; 87633; 87797; 93005; 93306; 94640; 94667; 94760; 94762; 96361; 96365; 97162; 97163; 97165; 97530; 99283; 99285; J1100; J1644; J1956; J2060; J2270; J2543; J2930; J3243; J7613

== ENCOUNTER → 2018-11-12 14:46 | Outpatient (REF) | payer MEDICARE, OTHER, SELFPAY ==
[2018-07-05 11:59] VITALS: PULSE 84; RESP 24; O2SAT 98
[2018-10-14 13:46] VITALS: BMI 23.3
[2018-11-12 15:15] LABS: Alanine Aminotransferase 24 IU/L (21-72); Albumin Globulin Ratio 1.7 (1.0-2.8); Alkaline Phosphatase 53 U/L (38-126); Aspartate Aminotransferase 31 IU/L (17-59); Bilirubin Total 0.3 mg/dL (0.2-1.3); Blood Urea Nitrogen 21 mg/dL (9-20); Calcium 9.6 mg/dL (8.4-10.2); Carbon Dioxide 36 mmol/L (22-32); Chloride 90 mmol/L (98-107); Estimated Glomerular Filt Rate > 60.0 mL/min (>60); Globulin 2.3 g/dL (1.7-4.1); Glucose 211 mg/dL (80-110); HEMOLYSIS < 15 (0-50); Potassium 3.8 mmol/L (3.4-5.1); Sodium 138 mmol/L (137-145); Total Protein 6.3 g/dL (6.3-8.2)
== END ==
LOC: LAB 14:46
PROVIDERS: Family Provider Student in an Organized Health Care Education/Training Program; PCP Student in an Organized Health Care Education/Training Program; Visit Provider Internal Medicine Critical Care Medicine
DX: B44.81 Allergic bronchopulmonary aspergillosis (principal)
CPT/HCPCS: 80053

== ENCOUNTER → 2019-02-22 11:05 | Outpatient (CLI) | payer MEDICARE, OTHER, SELFPAY ==
[2018-07-05 11:59] VITALS: PULSE 84; RESP 24; O2SAT 98
[2018-10-14 13:46] VITALS: BMI 23.3
== END ==
PROVIDERS: PCP Student in an Organized Health Care Education/Training Program; Visit Provider Internal Medicine Critical Care Medicine
DX: J47.9 Bronchiectasis, uncomplicated (principal)
CPT/HCPCS: 87070; 87205

== ENCOUNTER → 2019-05-02 09:29 | Outpatient (CLI) | payer MEDICARE, OTHER, SELFPAY ==
[2018-07-05 11:59] VITALS: PULSE 84; RESP 24; O2SAT 98
[2018-10-14 13:46] VITALS: BMI 23.3
== END ==
PROVIDERS: PCP Student in an Organized Health Care Education/Training Program; Visit Provider Internal Medicine Critical Care Medicine
DX: J47.9 Bronchiectasis, uncomplicated (principal)
CPT/HCPCS: 87070; 87205

== ENCOUNTER → 2019-07-25 14:05 | Outpatient (CLI) | payer MEDICARE, OTHER, SELFPAY ==
[2018-07-05 11:59] VITALS: PULSE 84; RESP 24; O2SAT 98
[2018-10-14 13:46] VITALS: BMI 23.3
== END ==
PROVIDERS: PCP Student in an Organized Health Care Education/Training Program; Visit Provider Internal Medicine Critical Care Medicine
DX: J47.1 Bronchiectasis with (acute) exacerbation (principal)
CPT/HCPCS: 87070; 87077; 87185; 87186; 87205

== ENCOUNTER 2019-08-06 10:22 | Inpatient (IN) | payer MEDICARE, OTHER, SELFPAY ==
[2018-07-05 11:59] VITALS: PULSE 84; RESP 24; O2SAT 98
[2018-10-14 13:46] VITALS: BMI 23.3
[2019-08-06] VITALS (16 sets, daily range): BP systolic 116–149; BP diastolic 55–70; PULSE 79–99; RESP 18–28; TEMP 36.5–37.2; O2SAT 93–99; BMI 24.3
[2019-08-06] MEDS: ALBUTEROL/IPRATROPIUM 3 ML AMPUL INH ×3 (10:33→16:36)
--- NOTE | 2019-08-06 10:38 | ED_ITS ---
HPI - SOB/Dyspnea General Chief Complaint: Shortness of Breath/Dyspnea Stated Complaint: thinks he has pneumonia Time Seen by Provider: 08/06/19 10:28 Source: patient and family Mode of arrival: Ambulatory Limitations: no limitations History of Present Illness HPI Narrative: Patient comes emergency department complaining of shortness of breath that has been going on for the last 2 weeks. Patient states he was jana yaya on ciprofloxacin and Augmentin to cover bacteria that grew out of his sputum sample that he had, but he states that he feels as though his cough has gotten worse. Patient has a history of COPD and is on home oxygen for this. He denies any fevers that he has measured, but he has had some chills and body aches. Patient denies any nausea or vomiting. No chest pain. He states that he has been doing DuoNeb treatments every 2 hours at home, but it does not seem to be helping. He is also on baseline prednisone. No abdominal symptoms. No vomiting or diarrhea. No abdominal pain. Related Data Home Medications Medication Instructions Recorded Confirmed cholecalciferol (vitamin D3) 1,000 unit PO DAILY #0 02/07/17 08/06/19 [Vitamin D3] Spacer: Inhaler Spacer Device 1 ea INHALATION DIRECTED 01/26/18 08/06/19 aspirin 81 mg PO DAILY 01/26/18 08/06/19 fluticasone propion-salmeterol 1 inh INHALATION Q12H 01/26/18 08/06/19 [Advair Diskus] albuterol sulfate [Proventil HFA] 2 puff INHALATION Q4H PRN 10/09/18 08/06/19 bisacodyl 5 - 10 mg PO PRN PRN 10/09/18 08/06/19 ipratropium-albuterol 3 ml INHALATION Q4H 08/06/19 08/06/19 loratadine 10 mg PO DAILY 08/06/19 08/06/19 lorazepam 1 mg PO DAILY PRN 08/06/19 08/06/19 Previous Rx's Medication Instructions Recorded furosemide 40 mg tablet 40 mg PO DAILY PRN #30 tab 08/21/18 tamsulosin 0.4 mg capsule 0.4 mg PO DAILY #90 cap 03/12/19 atorvastatin 20 mg tablet 20 mg PO BEDTIME #90 tab 03/14/19 metformin 1,000 mg tablet 1,000 mg PO BID #180 tab 05/08/19 levofloxacin 750 mg PO DAILY 5 Days #5 tab 08/08/19 prednisone 20 mg PO DAILY 3 Days #3 tab 08/08/19 Allergies Allergy/AdvReac Type Severity Reaction Status Date / Time felodipine [FELODIPINE] Allergy Intermediate SWELLING Verified 10/26/18 11:39 Review of Systems Review of Systems ROS Unobtainable: All systems reviewed & are unremarkable except as noted in HPI and below Constitutional Constitutional: Denies chills, Denies fatigue, Denies fever(s), Denies frequent falls, Denies lethargy and Denies weakness Eyes Eyes: Denies change in vision, Denies eye discharge, Denies irritation and Denies loss of vision ENT Ears, Nose, Mouth, and Throat: Denies change in voice, Denies dizziness, Denies neck pain, Denies sore throat and Denies throat swelling Cardiovascular Cardiovascular: Denies chest pain, Denies irregular heart rhythm, Denies lightheadedness, Denies palpitations, Reports dyspnea, Reports dyspnea on exertion and Denies orthopnea Respiratory Respiratory: Reports cough, Reports dyspnea, Reports dyspnea on exertion and Denies wheezing Gastrointestinal Gastrointestinal: Denies abdominal pain, Denies change in bowel habits, Denies diarrhea, Denies nausea and Denies vomiting Genitourinary Genitourinary: Denies hematuria, Denies flank pain, Denies urinary incontinence and Denies urinary urgency Musculoskeletal Musculoskeletal: Denies back pain, Denies muscle weakness, Denies neck pain, Denies numbness and Denies tingling Integumentary/Breasts Skin/Breast: Denies pruritus, Denies erythema, Denies rash and Denies wounds Neurologic Neurologic: Denies behavioral changes, Denies confusion, Denies dizziness, Denies frequent falls, Denies loss of vision, Denies numbness, Denies tingling and Denies weakness Psychiatric Psychiatric: Denies anxiety, Denies behavioral changes, Denies confusion, Denies depression, Denies homicidal ideation and Denies suicidal ideation Endocrine Endocrine: Denies fatigue, Denies flushing and Denies palpitations Hematologic/Lymphatic Hematologic/Lymphatic: Denies easy bruising Allergic/Immunologic Allergic/Immunologic: Denies urticaria, Denies throat swelling and Denies wheezing Patient History Medical History Anxiety (Chronic Unknown) BPH (benign prostatic hyperplasia) (Chronic Unknown) COPD (chronic obstructive pulmonary disease) (Inactive) COPD (chronic obstructive pulmonary disease) (Chronic Unknown) Coronary artery disease (Chronic Unknown) Dependent edema (Inactive) Diabetes (Chronic Unknown) History of colon cancer (Resolved ~2010) Hx of small bowel obstruction (Resolved 03/2015) Hyperlipemia (Chronic Unknown) Nontuberculous mycobacterial infection (Chronic 2014) Peripheral vascular disease (Chronic Unknown) Surgical History H/O cardiac catheterization (Resolved 2010) Hx of cataract surgery (Resolved 2014) Hx of hernia repair (Resolved 2008) S/P colon resection (Resolved 2010) S/P small bowel resection (Resolved 03/2015) Family History Mother Cancer Father Congestive heart failure Social History household members: spouse and family Smoking Status: Former smoker alcohol intake: current Smoking Status: Former smoker alcohol intake frequency: 0-2 drinks per day Substance Use Type: does not use Exam Initial Vital Signs Initial Vital Signs: Vital Signs Temperature 99 F 08/06/19 10:25 Pulse Rate 99 H 08/06/19 10:25 Respiratory Rate 28 H 08/06/19 10:25 Blood Pressure 133/70 08/06/19 10:25 Pulse Oximetry 93 08/06/19 10:25 Const General: cooperative and well developed Orientation: alert, awake, oriented x3 and not confused [facility] Head: normocephalic and atraumatic Ears: external ears normal Nose: external nose normal and No nasal discharge Face and sinus: face symmetric and No dry mucous membranes Mouth: oral mucosae normal and moist mucous membranes Teeth and gingiva: dentition normal Eyes General: appearance normal, both eyes and all related structures Eyelids: eyelids normal Conjunctivae: conjunctivae normal Sclera: sclerae normal Pupils: PERRL EOM: EOM intact bilaterally Neck Neck: normal visual inspection, trachea midline, No lymphadenopathy, No midline deformity and No JVD Lymphatic: No lymphedema Chest Chest: normal inspection of the chest Resp Effort & Inspection: labored, respiratory distress (Moderate, speaking in phrases) and no use of accessory muscles Auscultation: diminished lung sounds bilaterally throughout, no rales, rhonchi and wheezes Cardio Rate: regular rate Rhythm: regular rhythm Heart Sounds: no click, no gallops, no murmurs and no rubs Pulses: normal peripheral pulses GI Inspection: non-distended Palpation: soft, no hepatosplenomegaly, No guarding, No pulsatile mass and No tender Auscultation: normal bowel sounds Back/Spine/Pelvis Back: No CVA tenderness Cervical Spine: cervical ROM normal and No pain with cervical ROM Thoracic/Lumbar Spine: thoracic and lumbar spine normal to inspection Skin General: no rashes or lesions noted, No jaundice and No petechiae Neuro General: alert, oriented x3, gait normal and no focal motor deficits Speech: speech normal Extrem General: full ROM, no clubbing, cyanosis or edema, no pedal edema and no calf tenderness Psych Appearance: well kempt Mental Status: mental status grossly normal Attitude: cooperative Thought Content: normal and suicidality Judgment: judgment good Course Course Course Narrative: The patient was treated with duo nebs and steroids in the emergency department, and worked up with labs, EKG, and chest x-ray, which showed infiltrate versus scarring versus atelectasis in the right base. The patient was mildly improved after the above interventions, but was still very dyspneic with minor movements. I did feel he should be admitted to the hospital for this. I spoke with Dr. Morgan who agreed to admit the patient to her service. Patient was started on antibiotics in the emergency department. Orders Ordered: Discontinued Medications Acetaminophen (Tylenol) 650 mg PO Q6HR PRN PRN Reason: Fever/Mild Pain (1-3) Al Hydrox/Mg Hydrox/Simethicone (Maalox Plus) 30 ml PO Q6HR PRN PRN Reason: Dyspepsia Albuterol (Ventolin) 2.5 mg INH NOW ONE Stop: 08/06/19 11:53 Last Admin: 08/06/19 12:01 Dose: 2.5 mg Documented by: MATHEUS Albuterol (Ventolin) 2.5 mg INH [id number] PRN PRN Reason: Shortness Of Breath Last Admin: 08/07/19 19:59 Dose: 2.5 mg Documented by: Admin: 08/07/19 13:10 Dose: 2.5 mg Documented by: Admin: 08/06/19 20:05 Dose: 2.5 mg Documented by: PATRICIA Albuterol/Ipratropium (Duoneb) 3 ml INH NOW ONE Stop: 08/06/19 10:30 Last Admin: 08/06/19 10:33 Dose: 3 ml Documented by: MATHEUS Albuterol/Ipratropium (Duoneb) 3 ml INH NOW ONE Stop: 08/06/19 10:37 Last Admin: 08/06/19 10:46 Dose: 3 ml Documented by: MATHEUS Albuterol/Ipratropium (Duoneb) 3 ml INH RTQ4HR PRN PRN Reason: Shortness Of Breath Last Admin: 08/08/19 07:12 Dose: 3 ml Documented by: Admin: 08/07/19 02:38 Dose: 3 ml Documented by: Admin: 08/06/19 16:36 Dose: 3 ml Documented by: MATHEUS Aspirin (Aspirin Ec) 81 mg PO DAILY [facility] Last Admin: 08/08/19 08:36 Dose: 81 mg Documented by: Admin: 08/07/19 09:09 Dose: 81 mg Documented by: KRISTIN Atorvastatin Calcium (Lipitor) 20 mg PO BEDTIME [facility] Last Admin: 08/07/19 21:46 Dose: 20 mg Documented by: Admin: 08/06/19 20:30 Dose: 20 mg Documented by: VERONICA Bisacodyl (Dulcolax) 10 mg PO PRN PRN PRN Reason: MILD TO SEVERE CONSTIPATION Bisacodyl (Dulcolax) 10 mg MI DAILY PRN PRN Reason: Constipation Calcium Carbonate (Tums) 1,000 mg PO Q4HR PRN PRN Reason: Dyspepsia Dextrose (D50w) 25 gm IV PRN PRN; Protocol PRN Reason: Hypoglycemia Enoxaparin Sodium (Lovenox) 40 mg SUBCUT DAILY [facility] Last Admin: 08/08/19 08:36 Dose: 40 mg Documented by: Admin: 08/07/19 09:09 Dose: 40 mg Documented by: KRISTIN Guaifenesin (Mucinex) 1,200 mg PO BID [facility] Last Admin: 08/08/19 08:36 Dose: 1,200 mg Documented by: Admin: 08/07/19 21:46 Dose: 1,200 mg Documented by: Admin: 08/07/19 09:09 Dose: 1,200 mg Documented by: Admin: 08/06/19 20:30 Dose: 1,200 mg Documented by: VERONICA Dexamethasone 20 mg/ Sodium (Chloride) 55 mls @ 220 mls/hr IV NOW ONE Stop: 08/06/19 10:37 Last Infusion: 08/06/19 12:21 Dose: 0 mls/hr Documented by: Admin: 08/06/19 11:32 Dose: 220 mls/hr Documented by: JIMMY Levofloxacin (Levaquin) 750 mg in 150 mls @ 100 mls/hr IV NOW ONE Stop: 08/06/19 14:59 Last Admin: 08/06/19 13:49 Dose: 100 mls/hr Documented by: JIMMY Levofloxacin (Levaquin) 750 mg in 150 mls @ 100 mls/hr IV Q24H [facility] Last Infusion: 08/07/19 15:45 Dose: 0 mls/hr Documented by: Admin: 08/07/19 13:04 Dose: 100 mls/hr Documented by: KRISTIN Insulin Aspart (Novolog Flexpen) 0 unit SUBCUT ACHS DIAZ; Protocol Insulin Aspart (Novolog Flexpen) 0 unit SUBCUT ACHS DIAZ; Protocol Last Admin: 08/08/19 08:41 Dose: 1 unit Documented by: TYRELL Cosigned by: MISSAEL Admin: 08/07/19 21:43 Dose: Not Given Documented by: Admin: 08/07/19 17:20 Dose: 3 unit Documented by: KUNAL Cosigned by: JACKELIN Admin: 08/07/19 13:03 Dose: 5 unit Documented by: KRISTIN Cosigned by: SYLVAIN Admin: 08/07/19 09:08 Dose: 1 unit Documented by: KRISTIN Cosigned by: SYLVAIN Admin: 08/06/19 20:31 Dose: 300 unit Documented by: VERONICA Cosigned by: YANE Admin: 08/06/19 17:22 Dose: 5 unit Documented by: VERONICA Cosigned by: PRATEEK Insulin Glargine (Lantus Solostar (Pen)) 10 unit SUBCUT BEDTIME [facility] Last Admin: 08/07/19 21:47 Dose: 10 unit Documented by: KUNAL Cosigned by: JACKELIN Admin: 08/06/19 20:31 Dose: 10 unit Documented by: VERONICA Cosigned by: YANE Loratadine (Claritin) 10 mg PO DAILY [facility] Last Admin: 08/08/19 08:36 Dose: 10 mg Documented by: Admin: 08/07/19 09:09 Dose: 10 mg Documented by: KRISTIN Lorazepam (Ativan) 1 mg PO DAILY PRN PRN Reason: Anxiety Last Admin: 08/07/19 13:04 Dose: 1 mg Documented by: Admin: 08/06/19 20:29 Dose: 1 mg Documented by: VERONICA Magnesium Hydroxide (Milk Of Magnesia) 30 ml PO DAILY PRN PRN Reason: Constipation Morphine Sulfate (Morphine) 1 mg IV Q4HR PRN PRN Reason: Shortness Of Breath Naloxone HCl (Narcan) 0.2 mg IV Q2MIN PRN PRN Reason: Opiate Reversal Ondansetron HCl (Zofran) 4 mg IV Q6HR PRN PRN Reason: Nausea And Vomiting Prednisone (Deltasone) 20 mg PO DAILY [facility] Last Admin: 08/08/19 08:36 Dose: 20 mg Documented by: Admin: 08/07/19 09:09 Dose: 20 mg Documented by: KRISTIN Fluticasone/Salmeterol (Advair 250/50 Diskus) 1 puff INH Q12H [facility] Last Admin: 08/07/19 02:38 Dose: 1 puff Documented by: Admin: 08/06/19 16:35 Dose: 1 puff Documented by: MATHEUS Fluticasone/Salmeterol (Advair 250/50 Diskus) 1 puff INH RTBID [facility] Last Admin: 08/08/19 07:11 Dose: 1 puff Documented by: Admin: 08/07/19 19:59 Dose: 1 puff Documented by: PATRICIA Tamsulosin HCl (Flomax) 0.4 mg PO DAILY [facility] Last Admin: 08/08/19 08:36 Dose: 0.4 mg Documented by: Admin: 08/07/19 09:09 Dose: 0.4 mg Documented by: KRISTIN Vitamin D (Vitamin D3) 1,000 unit PO DAILY [facility] Last Admin: 08/08/19 08:36 Dose: 1,000 unit Documented by: Admin: 08/07/19 09:09 Dose: 1,000 unit Documented by: KRISTIN MDM - SOB/Dyspnea Medical Records Attestation: I reviewed the patient's medical records. Lab Data Attestation: I reviewed the patient's lab results. Result diagrams: 08/08/19 04:40 08/08/19 04:40 Labs: Lab Results 08/06/19 08/06/19 08/06/19 Range/Units 10:50 11:48 11:48 WBC 16.1 H (4.5-11.0) X10^3/uL RBC 4.42 L (4.5-5.9) X10^6/uL Hgb 12.1 L (13.5-17.5) g/dL Hct 38.4 L (41-53) % MCV 86.7 (80-100) fL MCH 27.4 (26-34) PG MCHC 31.6 (30-36) % RDW 16.7 H (11.6-14.8) % Plt Count 324 (150-400) X10^3/uL Neut % (Auto) 96.6 H (50-75) % Lymph % (Auto) 1.3 L (25-40) % [place] % (Auto) 1.6 L (3-14) % Eos % (Auto) 0.3 L (2-4) % Baso % (Auto) 0.2 (0-2) % Neut # (Auto) 30407 H (1336-3632) /uL Lymph # (Auto) 200 L (5769-3312) /uL [place] # (Auto) 300 (0-900) /uL Eos # (Auto) 0 (0-450) /uL Baso # (Auto) 0 (0-100) /uL Sodium 141 (137-145) mmol/L Potassium 4.8 (3.4-5.1) mmol/L Chloride 99 (98-107) mmol/L Carbon Dioxide 30 (22-32) mmol/L BUN 21 H (9-20) mg/dL Creatinine 0.50 L (0.66-1.25) mg/dL Estimated GFR > 60.0 (>60) mL/min BUN/Creatinine Ratio 42.0 H (6-22) Glucose 256 H (80-110) mg/dL Hemoglobin A1c (4.0-6.0) % Calcium 9.9 (8.4-10.2) mg/dL Total Bilirubin 0.3 (0.2-1.3) mg/dL AST 20 (17-59) IU/L ALT 25 (<50) IU/L Alkaline Phosphatase 70 (38-126) U/L Total Protein 6.8 (6.3-8.2) g/dL Albumin 4.1 (3.5-5.0) g/dL Globulin 2.7 (1.7-4.1) g/dL Albumin/Globulin Ratio 1.5 (1.0-2.8) Procalcitonin < 0.05 (<0.5) ng/mL Chlamy pneumoniae PCR (Not Detect) Adenovirus (PCR) (Not Detect) B.parapertussis DNA PCR (Not Detect) Coronavirus OC43 (PCR) (Not Detect) Coronavirus HKU1 (PCR) (Not Detect) Coronavirus 229E (PCR) (Not Detect) Coronavirus NL63 (PCR) (Not Detect) Human Metapneumovir PCR (Not Detect) Influenza Type A (PCR) (Not Detect) Influenza Type B (PCR) (Not Detect) M. pneumoniae (PCR) (Not Detect) Parainfluenza 1 (PCR) (Not Detect) Parainfluenza 2 (PCR) (Not Detect) Parainfluenza 3 (PCR) (Not Detect) Parainfluenza 4 (PCR) (Not Detect) RSV (PCR) (Not Detect) Entero/Rhino (PCR) (Not Detect) 08/06/19 08/06/19 Range/Units 11:48 13:10 WBC (4.5-11.0) X10^3/uL RBC (4.5-5.9) X10^6/uL Hgb (13.5-17.5) g/dL Hct (41-53) % MCV (80-100) fL MCH (26-34) PG MCHC (30-36) % RDW (11.6-14.8) % Plt Count (150-400) X10^3/uL Neut % (Auto) (50-75) % Lymph % (Auto) (25-40) % [place] % (Auto) (3-14) % Eos % (Auto) (2-4) % Baso % (Auto) (0-2) % Neut # (Auto) (0952-9296) /uL Lymph # (Auto) (4079-4196) /uL [place] # (Auto) (0-900) /uL Eos # (Auto) (0-450) /uL Baso # (Auto) (0-100) /uL Sodium (137-145) mmol/L Potassium (3.4-5.1) mmol/L Chloride (98-107) mmol/L Carbon Dioxide (22-32) mmol/L BUN (9-20) mg/dL Creatinine (0.66-1.25) mg/dL Estimated GFR (>60) mL/min BUN/Creatinine Ratio (6-22) Glucose (80-110) mg/dL Hemoglobin A1c 8.2 H (4.0-6.0) % Calcium (8.4-10.2) mg/dL Total Bilirubin (0.2-1.3) mg/dL AST (17-59) IU/L ALT (<50) IU/L Alkaline Phosphatase (38-126) U/L Total Protein (6.3-8.2) g/dL Albumin (3.5-5.0) g/dL Globulin (1.7-4.1) g/dL Albumin/Globulin Ratio (1.0-2.8) Procalcitonin (<0.5) ng/mL Chlamy pneumoniae PCR Not detected (Not Detect) Adenovirus (PCR) Not detected (Not Detect) B.parapertussis DNA PCR Not detected (Not Detect) Coronavirus OC43 (PCR) Not detected (Not Detect) Coronavirus HKU1 (PCR) Not detected (Not Detect) Coronavirus 229E (PCR) Not detected (Not Detect) Coronavirus NL63 (PCR) Not detected (Not Detect) Human Metapneumovir PCR Not detected (Not Detect) Influenza Type A (PCR) Not detected (Not Detect) Influenza Type B (PCR) Not detected (Not Detect) M. pneumoniae (PCR) Not detected (Not Detect) Parainfluenza 1 (PCR) Not detected (Not Detect) Parainfluenza 2 (PCR) Not detected (Not Detect) Parainfluenza 3 (PCR) Not detected (Not Detect) Parainfluenza 4 (PCR) Not detected (Not Detect) RSV (PCR) Not detected (Not Detect) Entero/Rhino (PCR) Not detected (Not Detect) Imaging Data Chest x-ray: Radiologist's Impression: PROCEDURE: XR CHEST 1V INDICATIONS: dyspnea TECHNIQUE: One view of the chest was acquired. COMPARISON: [facility], CR, XR CHEST 2 VIEWS, 05/07/2019, 9:35. [facility], CR, XR CHEST 1V, 10/14/2018, 10:30. FINDINGS: Surgical changes and devices: None. Lungs and pleura: Lungs are hyperinflated. There is unchanged appearance of blunting at the costophrenic angles, likely related to scarring. Interstitial opacities are otherwise unchanged. There is questionable slight increased opacity within the right base. Mediastinum: Mediastinal contours appear normal. Heart size is normal. Bones and chest wall: No suspicious bony lesions. Overlying soft tissues appear unremarkable. IMPRESSION: Chronic interstitial scarring with questionable superimposed opacity in the right base. This could represent atelectasis or developing pneumonia. Dictated by: Deann Carmona M.D. on 08/06/2019 at 11:22 Approved by: Deann Carmona M.D. on 08/06/2019 at 11:24 ECG Data Attestation: I personally reviewed and interpreted this ECG as follows: Discharge Plan Departure Patient Disposition: Admitted As Inpatient Clinical Impression: COPD exacerbation Pneumonia Qualifiers: Pneumonia type: due to unspecified organism Laterality: right Lung location: lower lobe of lung Qualified Code(s): J18.9 - Pneumonia, unspecified organism Discharge Date/Time: 08/06/19 14:11 Admit Date/Time: 08/06/19 13:39 Admit Provider: Nel Morgan
[2019-08-06 11:14] LABS: Add Manual Diff / Slide Review NO; Basophils Absolute Auto 0 /uL (0-100); Basophils Percent Auto 0.2 % (0-2); Eosinophils Absolute Auto 0 /uL (0-450); Eosinophils Percent Auto 0.3 % (2-4); Hematocrit 38.4 % (41-53); Hemoglobin 12.1 g/dL (13.5-17.5); Lymphocytes Absolute Auto 200 /uL (1100-4500); Lymphocytes Percent Auto 1.3 % (25-40); Mean Corpuscular HGB Conc 31.6 % (30-36); Mean Corpuscular Hemoglobin 27.4 PG (26-34); Mean Corpuscular Volume 86.7 fL (80-100); Monocytes Absolute Auto 300 /uL (0-900); Monocytes Percent Auto 1.6 % (3-14); Neutrophils Absolute Auto 15600 /uL (1500-7000); Neutrophils Percent Auto 96.6 % (50-75); Platelet Count 324 X10^3/uL (150-400); Red Blood Cell Count 4.42 X10^6/uL (4.5-5.9); Red Cell Distribution Width 16.7 % (11.6-14.8); White Blood Cell Count 16.1 X10^3/uL (4.5-11.0)
[2019-08-06] MEDS: dexAMETHasone 20 MG in SODIUM CHLORIDE 0.9% 50 ML 220 ML IV (11:32)
--- NOTE | 2019-08-06 11:45 | PC.NURSE ---
Patient became short of breath while standing at bedside using urinal. RT called for another breathing treatment.
[2019-08-06] MEDS: ALBUTEROL 2.5 MG/3 ML NEB (ADULT) INH ×2 (12:01→20:05)
--- NOTE | 2019-08-06 12:05 | PC.NURSE ---
after nebulizer, O2 Saturation and work of breathing is much improved.
[2019-08-06 12:50] LABS: Albumin 4.1 g/dL (3.5-5.0); Albumin Globulin Ratio 1.5 (1.0-2.8); Alkaline Phosphatase 70 U/L (38-126); Aspartate Aminotransferase 20 IU/L (17-59); Bilirubin Total 0.3 mg/dL (0.2-1.3); Blood Urea Nitrogen 21 mg/dL (9-20); Calcium 9.9 mg/dL (8.4-10.2); Carbon Dioxide 30 mmol/L (22-32); Chloride 99 mmol/L (98-107); Estimated Glomerular Filt Rate > 60.0 mL/min (>60); Globulin 2.7 g/dL (1.7-4.1); Glucose 256 mg/dL (80-110); HEMOLYSIS < 15 (0-50); Potassium 4.8 mmol/L (3.4-5.1); Sodium 141 mmol/L (137-145); Total Protein 6.8 g/dL (6.3-8.2)
[2019-08-06 12:57] LABS: Alanine Aminotransferase 25 IU/L (<50)
[2019-08-06] MEDS: levoFLOXacin 750 MG/150 ML PIGGYBACK 100 MG IV (13:49)
[2019-08-06 14:30] LABS: Adenovirus Not Detected (Not Detect); Bordetella pertussis Not Detected (Not Detect); Chlamydophila pneumoniae Not Detected (Not Detect); Coronavirus 229E Not Detected (Not Detect); Coronavirus HKU1 Not Detected (Not Detect); Coronavirus NL 63 Not Detected (Not Detect); Coronavirus OC43 Not Detected (Not Detect); Human Metapneumovirus Not Detected (Not Detect); Human Rhinovirus/Enterovirus Not Detected (Not Detect); Influenza A Not Detected (Not Detect); Influenza B Not Detected (Not Detect); Mycoplasma pneumoniae Not Detected (Not Detect); Parainfluenza Virus 1 Not Detected (Not Detect); Parainfluenza Virus 2 Not Detected (Not Detect); Parainfluenza Virus 3 Not Detected (Not Detect); Parainfluenza Virus 4 Not Detected (Not Detect); Respiratory Syncytial Virus Not Detected (Not Detect)
--- NOTE | 2019-08-06 14:36 | PC.ADMIT ---
Admission Note: Patient arrived to room 104 at 1400 via stretcher from ER, able to transfer self to bed. Alert and oriented x3. Breathing labored at rest and with exertion, RR in the upper 20s. Pt reports breathing improved from earlier this morning. Oxygen sats 97% on 3L NC (per home oxygen regimen). Denies pain. St. 1 pressure ulcer to buttocks, erythema, non-blanchable, skin intact. Instructed pt to offload pressure to buttocks and acknowledged understanding - declines at this time. SR/ST on monitor. Belongings at bedside including glasses, cell phone, shoes, and clothing. Declines to lock up any valuables at this time. The patient,Chacorta Yanes,69 y/o, was given written information regarding hospital policies, unit procedures and contact persons. Patient's smoking status: Former smoker. Vital Signs - 8 hr 08/06/19 10:25 08/06/19 10:45 08/06/19 10:47 Temperature 99 F Pulse Rate 99 H 99 H Respiratory Rate 28 H 28 H Blood Pressure 133/70 Blood Pressure [Left Arm] Pulse Oximetry 93 99 99 08/06/19 11:20 08/06/19 12:00 08/06/19 12:01 Temperature Pulse Rate 93 H 96 H 91 H Respiratory Rate 24 Blood Pressure Blood Pressure [Left Arm] 124/57 L 116/65 Pulse Oximetry 98 95 98 08/06/19 13:00 08/06/19 13:46 08/06/19 14:03 Temperature 98.5 F Pulse Rate 96 H 91 H 98 H Respiratory Rate 20 20 24 Blood Pressure 149/70 H Blood Pressure [Left Arm] 131/55 L 132/56 L Pulse Oximetry 98 98 95 08/06/19 14:10 Temperature Pulse Rate Respiratory Rate Blood Pressure Blood Pressure [Left Arm] Pulse Oximetry 97
[2019-08-06 14:37] LABS: Hemoglobin A1C% w Est Avg Glu 8.2 % (4.0-6.0)
[2019-08-06 15:00] LABS: Procalcitonin < 0.05 ng/mL (<0.5)
[2019-08-06 15:08] LABS: HCO3 ABG 33 mmol/L (22-26); PCO2 ABG 56.2 mmHg (35-45); PO2 ABG 117 mmHg (80-100); TCO2 ABG 34 mmol/L (21-31); pH ABG 7.37 (7.35-7.45)
[2019-08-06 15:09] LABS: Oxygen Saturation ABG 98 % (95-100)
[2019-08-06] MEDS: FLUTICASONE/SALMETEROL 250/50 60 PUFF DISKUS INH (16:35)
--- NOTE | 2019-08-06 17:14 | PC.NURSE ---
Pt eating dinner comfortably, sitting upright in bed on 3LNC95%, SOB and increased work of breathing noted. pt denies pain but has discomfort in chest with breathing. Family at bedside with patient. Call shelby within reach.
[2019-08-06] MEDS: INSULIN ASPART 100 UNIT/ML INSULN PEN SUBCUT ×2 (17:22→20:31)
--- NOTE | 2019-08-06 18:26 | PC.NURSE ---
Addendum entered by Eugenia Barreto R.N. 08/06/19 20:36: Pt covered with Lantus and Novolog for Blood Glucose of 237. Pt refusing to lay on side to prevent further pressure to coccyx. Explained to pt the risk of Stage I pressure sore worsening- verbalized understanding but stated i want to stay comfortable while i can though. Asked pt to stand at bedside and take steps back and forth during a short commercial. Pt will not do it. SCDs placed on pt- verbalized he does not like them. Original Note: Pt on 3LNC, satting 97%. RR in 20s. Lung sounds diminished throughout. Pt has CPAP at home but does not wear often per patient and . Does not want in hospital either. +SOB at rest, improves with positioning. Will give Ativan dose that pt takes at home per pt request. HR 87 SR. IV Abx. 20g LAC intact, flushes well. Last BM this am. tolerating heart healthy diet, no nausea. good appetite. Sliding scale initiated this afternoon. Pt with blood glucose checks AC and HS.
[2019-08-06] MEDS: LORazepam 1 MG TABLET PO (20:29)
[2019-08-06] MEDS: ATORVASTATIN 20 MG TABLET PO (20:30)
[2019-08-06] MEDS: guaiFENesin ER 600 MG TAB 1200 MG PO (20:30)
[2019-08-06] MEDS: INSULIN GLARGINE 100 UNIT/ML 3ML PEN 10 UNIT SUBCUT (20:31)
[2019-08-07] VITALS (15 sets, daily range): BP systolic 101–149; BP diastolic 52–77; PULSE 68–89; RESP 17–27; TEMP 36–37.1; O2SAT 93–100
[2019-08-07] MEDS: ALBUTEROL/IPRATROPIUM 3 ML AMPUL INH (02:38)
[2019-08-07] MEDS: FLUTICASONE/SALMETEROL 250/50 60 PUFF DISKUS INH ×2 (02:38→19:59)
--- NOTE | 2019-08-07 04:48 | PM.HP.1 ---
History of Present Illness History of Present Illness Date Patient Seen: 08/06/19 Time Patient Seen: 21:30 Chief complaint: thinks he has pneumonia Narrative: Mr. Chacorta Yanes is a 69-year-old male with history significant for former smoker with a history emphysema and end-stage COPD, history of bronchopulmonary aspergillosis, coronary artery disease, diabetes, peripheral vascular disease, hyperlipidemia presents today with progressive dyspnea and increasing chest congestion. The patient reports having shortness of breath for 2 weeks. Was seen by his primary care provider who started him on Augmentin on 07 24 for 14 day course in Cipro started on 07/30 for 10 day course as an outpatient. Patient states he continued to worsen while taking the antibiotic with progressive weakness, poor activity tolerance wheezing, gurgling and persistent coughing. He also reports associated fevers and chills with sore chest secondary to coughing. The patient has been taking prednisone 20 mg daily and has been taking DuoNeb treatments every 2 hours. He reports he uses his trilogy with the oral mouthpiece and has been intolerant of the mask. He has also been continuing to use his CPT. Upon arrival to the emergency department the patient is found have a temperature 99? degrees. Heart rate is 99 with blood pressure 133/70. He has an increased respiratory rate of 28 saturating 93% on 3 liters/minute. Chest x-ray obtained which shows right lower lobe pneumonia. Arterial blood gas reveals a pH of 7.37, pCO2 of 56.2, PO2 of 117, bicarb of 33 with a base excess of 7. He has an elevated white count at 16 with a hemoglobin of 12.1 and hematocrit of 38.4 and platelets of 324. His electrolytes are within normal limits and has a BUN of 21 and creatinine 0.5. Has elevated blood sugar at 256. His procalcitonin is less than 0.05, and respiratory PCR panel is negative. Twelve lead EKG is obtained showing sinus rhythm with PVC. In the ER the patient received serial nebulizer treatments and Decadron 20 mg IV. Patient is admitted to medicine service for right lower lobe pneumonia with COPD exacerbation. Patient History Medical History Anxiety (Chronic Unknown) BPH (benign prostatic hyperplasia) (Chronic Unknown) COPD (chronic obstructive pulmonary disease) (Inactive) COPD (chronic obstructive pulmonary disease) (Chronic Unknown) Coronary artery disease (Chronic Unknown) Dependent edema (Inactive) Diabetes (Chronic Unknown) History of colon cancer (Resolved ~2010) Hx of small bowel obstruction (Resolved 03/2015) Hyperlipemia (Chronic Unknown) Nontuberculous mycobacterial infection (Chronic 2014) Peripheral vascular disease (Chronic Unknown) Surgical History H/O cardiac catheterization (Resolved 2010) Hx of cataract surgery (Resolved 2014) Hx of hernia repair (Resolved 2008) S/P colon resection (Resolved 2010) S/P small bowel resection (Resolved 03/2015) Family & Social History Family History Mother Cancer Father Congestive heart failure Social History: household members spouse,family Prior Living Arrangements House Safety & Behavioral: Feels Safe in Current Yes Environment Been Physically Hurt or No Threatened By a Person Suicidal Ideation Description None Suicide Plan Description No Plan Tobacco & Substance use: Tobacco type cigarettes Smoking Status Former smoker alcohol intake current alcohol intake frequency 0-2 drinks per day Substance Use Type does not use Comment: The patient lives in a single family home with his spouse to whom he has been for 36 years. Smoking: Patient quit smoking in 2002 before which he was smoking 2 packs per day. Alcohol: Patient states he no longer consumes alcohol beverages. Substance use: Denies recreational pharmaceuticals, herbals or cannabis use Advanced directives: Discussion has been held regarding advanced directives in relation to severity of illness. The patient is elected to be FULL CODE for now. His is designated as his surrogate decision maker. Meds Home Medications and Allergies Home Medications Medication Instructions Recorded Confirmed Type cholecalciferol (vitamin D3) 1,000 unit PO DAILY #0 02/07/17 08/06/19 History [Vitamin D3] Spacer: Inhaler Spacer Device 1 ea INHALATION DIRECTED 01/26/18 08/06/19 History aspirin 81 mg PO DAILY 01/26/18 08/06/19 History fluticasone propion-salmeterol 1 inh INHALATION Q12H 01/26/18 08/06/19 History [Advair Diskus] furosemide 40 mg tablet 40 mg PO DAILY PRN #30 tab 08/21/18 08/06/19 Rx albuterol sulfate [Proventil HFA] 2 puff INHALATION Q4H PRN 10/09/18 08/06/19 History bisacodyl 5 - 10 mg PO PRN PRN 10/09/18 08/06/19 History tamsulosin 0.4 mg capsule 0.4 mg PO DAILY #90 cap 03/12/19 08/06/19 Rx atorvastatin 20 mg tablet 20 mg PO BEDTIME #90 tab 03/14/19 08/06/19 Rx metformin 1,000 mg tablet 1,000 mg PO BID #180 tab 05/08/19 08/06/19 Rx amoxicillin-pot clavulanate 1 tab PO [id number] 08/06/19 08/06/19 History ipratropium-albuterol 3 ml INHALATION Q4H 08/06/19 08/06/19 History loratadine 10 mg PO DAILY 08/06/19 08/06/19 History lorazepam 1 mg PO DAILY PRN 08/06/19 08/06/19 History prednisone See Rx Instructions .ROUTE .COMPLEX 08/06/19 08/06/19 History Allergies Allergy/AdvReac Type Severity Reaction Status Date / Time felodipine [FELODIPINE] Allergy Intermediate SWELLING Verified 10/26/18 11:39 Review of Systems Review of Systems Narrative: All systems are reviewed and are unremarkable and noted in the HPI above. Exam Vital Signs (past 8 hours): - 08/06/19 22:50 08/07/19 00:35 08/07/19 02:35 Temperature 97.7 F Pulse Rate 76 Respiratory Rate 22 Blood Pressure 149/67 H Pulse Oximetry 97 98 97 Oxygen Delivery Method Nasal Cannula Oxygen Flow Rate 3 Narrative Exam Narrative: GENERAL APPEARANCE: well developed, somewhat frail-appearing elderly gentleman with mild work of breathing. HEENT: Normocephalic, PERRLA, conjunctiva clear, sclera is anicteric EOMs intact, no rhinorrhea, mucous membranes are moist and pink. NECK/THYROID: neck supple, no JVD, no carotid bruit, no thyromegaly, trachea midline. LYMPH NODES: no cervical or supraclavicular lymphadenopathy. SKIN: [place], warm and dry, no visible lesions, rashes, ulcerations or petechiae. HEART: regular rate and rhythm, no murmurs, rubs, gallops, brisk capillary refill, trace bilateral pedal edema LUNGS: Breath sounds coarse centrally and very diminished in all denney, prolonged expiratory phase, productive cough present, nail beds pale CHEST: Increased AP diameter, symmetrical expansion, no supraclavicular or intercostal retractions, no pain to AP and lateral compression. ABDOMEN: Soft, round soft abdomen with large abdominal hernia with abdominal binder support, no tenderness or guarding, no organomegaly, no flank tenderness, active bowel tones. EXTREMITIES: moves all extremities, strength is 5/5 and symmetrical, 1+ dorsalis pedis pulses NEUROLOGIC: non focal, motor strength normal upper and lower extremities, sensation diminished bilateral forefoot with tingling, cranial nerves II-XII grossly intact, hearing grossly normal to speech. PSYCH: alert, oriented, cognitive function intact, good eye contact, stable mood with congruent affect Objective Labs Result Diagrams: 08/06/19 10:50 08/06/19 11:48 Labs: Laboratory Results - last 24 hr 08/06/19 08/06/19 08/06/19 10:50 11:48 11:48 WBC 16.1 H RBC 4.42 L Hgb 12.1 L Hct 38.4 L MCV 86.7 MCH 27.4 MCHC 31.6 RDW 16.7 H Plt Count 324 Neut % (Auto) 96.6 H Lymph % (Auto) 1.3 L [place] % (Auto) 1.6 L Eos % (Auto) 0.3 L Baso % (Auto) 0.2 Neut # (Auto) 99573 H Lymph # (Auto) 200 L [place] # (Auto) 300 Eos # (Auto) 0 Baso # (Auto) 0 ABG pH ABG pCO2 ABG pO2 ABG HCO3 ABG Total CO2 ABG O2 Saturation ABG Base Excess Sodium 141 Potassium 4.8 Chloride 99 Carbon Dioxide 30 BUN 21 H Creatinine 0.50 L Estimated GFR > 60.0 BUN/Creatinine Ratio 42.0 H Glucose 256 H Hemoglobin A1c Calcium 9.9 Total Bilirubin 0.3 AST 20 ALT 25 Alkaline Phosphatase 70 Total Protein 6.8 Albumin 4.1 Globulin 2.7 Albumin/Globulin Ratio 1.5 Procalcitonin < 0.05 Nasal Screen MRSA (PCR) Chlamy pneumoniae PCR Adenovirus (PCR) B.parapertussis DNA PCR Coronavirus OC43 (PCR) Coronavirus HKU1 (PCR) Coronavirus 229E (PCR) Coronavirus NL63 (PCR) Human Metapneumovir PCR Influenza Type A (PCR) Influenza Type B (PCR) M. pneumoniae (PCR) Parainfluenza 1 (PCR) Parainfluenza 2 (PCR) Parainfluenza 3 (PCR) Parainfluenza 4 (PCR) RSV (PCR) Entero/Rhino (PCR) 08/06/19 08/06/19 08/06/19 11:48 13:10 14:10 WBC RBC Hgb Hct MCV MCH MCHC RDW Plt Count Neut % (Auto) Lymph % (Auto) [place] % (Auto) Eos % (Auto) Baso % (Auto) Neut # (Auto) Lymph # (Auto) [place] # (Auto) Eos # (Auto) Baso # (Auto) ABG pH ABG pCO2 ABG pO2 ABG HCO3 ABG Total CO2 ABG O2 Saturation ABG Base Excess Sodium Potassium Chloride Carbon Dioxide BUN Creatinine Estimated GFR BUN/Creatinine Ratio Glucose Hemoglobin A1c 8.2 H Calcium Total Bilirubin AST ALT Alkaline Phosphatase Total Protein Albumin Globulin Albumin/Globulin Ratio Procalcitonin Nasal Screen MRSA (PCR) Negative for mrsa Chlamy pneumoniae PCR Not detected Adenovirus (PCR) Not detected B.parapertussis DNA PCR Not detected Coronavirus OC43 (PCR) Not detected Coronavirus HKU1 (PCR) Not detected Coronavirus 229E (PCR) Not detected Coronavirus NL63 (PCR) Not detected Human Metapneumovir PCR Not detected Influenza Type A (PCR) Not detected Influenza Type B (PCR) Not detected M. pneumoniae (PCR) Not detected Parainfluenza 1 (PCR) Not detected Parainfluenza 2 (PCR) Not detected Parainfluenza 3 (PCR) Not detected Parainfluenza 4 (PCR) Not detected RSV (PCR) Not detected Entero/Rhino (PCR) Not detected 08/06/19 14:30 WBC RBC Hgb Hct MCV MCH MCHC RDW Plt Count Neut % (Auto) Lymph % (Auto) [place] % (Auto) Eos % (Auto) Baso % (Auto) Neut # (Auto) Lymph # (Auto) [place] # (Auto) Eos # (Auto) Baso # (Auto) ABG pH 7.37 ABG pCO2 56.2 H ABG pO2 117 H ABG HCO3 33 H ABG Total CO2 34 H ABG O2 Saturation 98 ABG Base Excess 7.0 H Sodium Potassium Chloride Carbon Dioxide BUN Creatinine Estimated GFR BUN/Creatinine Ratio Glucose Hemoglobin A1c Calcium Total Bilirubin AST ALT Alkaline Phosphatase Total Protein Albumin Globulin Albumin/Globulin Ratio Procalcitonin Nasal Screen MRSA (PCR) Chlamy pneumoniae PCR Adenovirus (PCR) B.parapertussis DNA PCR Coronavirus OC43 (PCR) Coronavirus HKU1 (PCR) Coronavirus 229E (PCR) Coronavirus NL63 (PCR) Human Metapneumovir PCR Influenza Type A (PCR) Influenza Type B (PCR) M. pneumoniae (PCR) Parainfluenza 1 (PCR) Parainfluenza 2 (PCR) Parainfluenza 3 (PCR) Parainfluenza 4 (PCR) RSV (PCR) Entero/Rhino (PCR) Assessment & Plan Assessment & Plan narrative: The patient is admitted to the hospital for severe respiratory distress related to exacerbation of COPD pneumonia and UTI. 1. Acute on chronic respiratory failure, present on admission, active. -right lower lobe pneumonia with acute on chronic COPD exacerbation, on continuous home oxygen at 3 L/M -P/F ratio is 216 upon arrival to the ER with 3 L nasal cannula. He is compensated CO2 retainer with a pH of 7.37, pCO2 of 56.2 and a bicarb 33. -treatment is per pneumonia and COPD exacerbation below. -chest physiotherapy 3 times daily -Acapella flutter valve 3 times daily 2. Right lower lobe pneumonia, acute, present on admission, active -the patient has had progressive symptoms for 2 weeks failing outpatient therapy with Augmentin and Cipro. -elevated white count at 16.0, procalcitonin is negative at 0.05 and negative respiratory panel. -Chest x-ray reveals right lower lobe pneumonia. -patient has completed his course of Augmentin. -ordered Levaquin 750 mg IV daily. -respiratory therapy to consult evaluate and treat. -albuterol nebulizer every 2 hours as needed, DuoNeb every 6 hours as needed. -Decadron 20 mg daily -continue home O2 at 3 liters/minute, cool oxygen saturation 88-92% -sputum culture ordered, will follow blood count and procalcitonin. 3. Acute exacerbation of COPD -emphysema with increased work of breathing, on chronic home O2 at 3 liters/minute -albuterol nebulizer every 2 hours as needed, DuoNeb every 6 hours as needed. -patient has been on prednisone 20 mg daily will continue at present therapeutic level -albuterol nebulizer every 2 hours as needed, DuoNeb every 6 hours as needed. -chest physiotherapy 3 times daily -Acapella flutter valve 3 times daily 4. Benign prostatic hypertrophy, chronic, stable -continue home regimen of Flomax daily 5. Non insulin-dependent diabetes mellitus type 2, present on admission. Stable. -Hemoglobin A1C 8.2 -Metformin is held and blood sugars will be checked ACHS and covered with medium range sliding scale insulin -medium carbohydrate diet 6. Coronary artery disease, chronic, stable -patient complains of chest wall pain related to coughing, denies cardiac pain, 12 lead EKG is sinus rhythm without ectopy ST or T-wave changes, unchanged from prior tracing -echocardiogram dated 10/15/2018 reflects an ejection fraction of 70-75% with hyperdynamic LV function and mild right ventricular dilation, no significant valvular disease. -will continue home regimen of furosemide 40 mg daily and aspirin 81 mg daily VTE prophylaxis: SCDs, Lovenox The patient is admitted to the hospital due to severity of symptoms and high risk of complications. Patient is admitted as an inpatient with expected length of stay greater 2 midnights. Quality VTE Deep Vein Thrombosis/Pulmonary Embolism Present on Admission: No
[2019-08-07] MEDS: INSULIN ASPART 100 UNIT/ML INSULN PEN SUBCUT ×3 (09:08→17:20)
[2019-08-07] MEDS: guaiFENesin ER 600 MG TAB 1200 MG PO ×2 (09:09→21:46)
[2019-08-07] MEDS: LORATADINE 10 MG TABLET PO (09:09)
[2019-08-07] MEDS: ENOXAPARIN 40 MG/0.4 ML SYRINGE SUBCUT (09:09)
[2019-08-07] MEDS: predniSONE 20 MG TABLET PO (09:09)
[2019-08-07] MEDS: ASPIRIN EC 81 MG TABLET PO (09:09)
[2019-08-07] MEDS: CHOLECALCIFEROL (VITAMIN D3) 1,000 UNIT TABLET 1000 UNIT PO (09:09)
[2019-08-07] MEDS: TAMSULOSIN 0.4 MG CAPSULE PO (09:09)
[2019-08-07] MEDS: levoFLOXacin 750 MG/150 ML PIGGYBACK 100 MG IV (13:04)
[2019-08-07] MEDS: LORazepam 1 MG TABLET PO (13:04)
[2019-08-07] MEDS: ALBUTEROL 2.5 MG/3 ML NEB (ADULT) INH ×2 (13:10→19:59)
--- NOTE | 2019-08-07 14:13 | P.PN_ITS ---
Subjective Subjective Date Patient Seen: 08/07/19 Time Patient Seen: 14:13 Interval history: Mr. Chacorta Yanes is a 69-year-old male with history significant for former smoker with a history emphysema and end-stage COPD, history of bronchopulmonary aspergillosis, coronary artery disease, diabetes, peripheral vascular disease, hyperlipidemia who was seen today for follow-up after being admitted to the hospital for pneumonia. He is symptomatically improved with his shortness of breath at rest, but he still has some subjective dyspnea on exertion. He is now on his usual 3 L of nasal cannula and using his home trilogy machine at night. He denies any chest pain, fevers, chills, nausea, vomiting. His nose does feel stuffed, but he has had no rhinorrhea. Exam Vital Signs (past 8 hours): - 08/07/19 08:00 08/07/19 08:55 08/07/19 11:28 Temperature 97.8 F 98.1 F Pulse Rate 74 80 Respiratory Rate 17 18 Blood Pressure 139/65 140/77 Pulse Oximetry 100 98 96 08/07/19 13:31 Temperature Pulse Rate Respiratory Rate 24 Blood Pressure Pulse Oximetry 93 Oxygen Delivery Method Nasal Cannula Oxygen Flow Rate 3 Narrative Exam Narrative: GENERAL APPEARANCE: well developed, somewhat frail-appearing elderly gentleman in no acute distress. Resting comfortably in hospital bed. HEENT: Normocephalic, PERRLA, conjunctiva clear, sclera is anicteric EOMs intact, no rhinorrhea, mucous membranes are moist and pink. NECK/THYROID: neck supple, no JVD, no carotid bruit, no thyromegaly, trachea midline. LYMPH NODES: no cervical or supraclavicular lymphadenopathy. SKIN: [place], warm and dry, no visible lesions, rashes, ulcerations or petechiae. HEART: regular rate and rhythm, no murmurs, rubs, gallops, brisk capillary refill, trace bilateral pedal edema LUNGS: Poor air movement, but improved from previous examinations. He has both inspiratory and expiratory wheezes in all lung denney, but no rales or rhonchi are audible. CHEST: Increased AP diameter, symmetrical expansion, no supraclavicular or intercostal retractions. ABDOMEN: Soft, round soft abdomen with large abdominal hernia with abdominal binder support, no tenderness or guarding, no organomegaly, no flank tenderness, active bowel tones. EXTREMITIES: moves all extremities, strength is 5/5 and symmetrical, 1+ dorsalis pedis pulses NEUROLOGIC: non focal, motor strength normal upper and lower extremities, sensation diminished bilateral forefoot with tingling, cranial nerves II-XII grossly intact, hearing grossly normal to speech. PSYCH: alert, oriented, cognitive function intact, good eye contact, stable mood with congruent affect Objective Labs Result Diagrams: 08/06/19 10:50 08/06/19 11:48 Labs: Laboratory Results - last 24 hr 08/06/19 08/06/19 08/06/19 11:48 11:48 11:48 ABG pH ABG pCO2 ABG pO2 ABG HCO3 ABG Total CO2 ABG O2 Saturation ABG Base Excess Sodium 141 Potassium 4.8 Chloride 99 Carbon Dioxide 30 BUN 21 H Creatinine 0.50 L Estimated GFR > 60.0 BUN/Creatinine Ratio 42.0 H Glucose 256 H Hemoglobin A1c 8.2 H Calcium 9.9 Total Bilirubin 0.3 AST 20 ALT 25 Alkaline Phosphatase 70 Total Protein 6.8 Albumin 4.1 Globulin 2.7 Albumin/Globulin Ratio 1.5 Procalcitonin < 0.05 Nasal Screen MRSA (PCR) Chlamy pneumoniae PCR Adenovirus (PCR) B.parapertussis DNA PCR Coronavirus OC43 (PCR) Coronavirus HKU1 (PCR) Coronavirus 229E (PCR) Coronavirus NL63 (PCR) Human Metapneumovir PCR Influenza Type A (PCR) Influenza Type B (PCR) M. pneumoniae (PCR) Parainfluenza 1 (PCR) Parainfluenza 2 (PCR) Parainfluenza 3 (PCR) Parainfluenza 4 (PCR) RSV (PCR) Entero/Rhino (PCR) 08/06/19 08/06/19 08/06/19 13:10 14:10 14:30 ABG pH 7.37 ABG pCO2 56.2 H ABG pO2 117 H ABG HCO3 33 H ABG Total CO2 34 H ABG O2 Saturation 98 ABG Base Excess 7.0 H Sodium Potassium Chloride Carbon Dioxide BUN Creatinine Estimated GFR BUN/Creatinine Ratio Glucose Hemoglobin A1c Calcium Total Bilirubin AST ALT Alkaline Phosphatase Total Protein Albumin Globulin Albumin/Globulin Ratio Procalcitonin Nasal Screen MRSA (PCR) Negative for mrsa Chlamy pneumoniae PCR Not detected Adenovirus (PCR) Not detected B.parapertussis DNA PCR Not detected Coronavirus OC43 (PCR) Not detected Coronavirus HKU1 (PCR) Not detected Coronavirus 229E (PCR) Not detected Coronavirus NL63 (PCR) Not detected Human Metapneumovir PCR Not detected Influenza Type A (PCR) Not detected Influenza Type B (PCR) Not detected M. pneumoniae (PCR) Not detected Parainfluenza 1 (PCR) Not detected Parainfluenza 2 (PCR) Not detected Parainfluenza 3 (PCR) Not detected Parainfluenza 4 (PCR) Not detected RSV (PCR) Not detected Entero/Rhino (PCR) Not detected Assessment & Plan Assessment & Plan narrative: Mr. Chacorta Yanes is a 69-year-old male with history significant for former smoker with a history emphysema and end- stage COPD, history of bronchopulmonary aspergillosis, coronary artery disease, diabetes, peripheral vascular disease, hyperlipidemia who was admitted for acute hypoxemic on chronic hypercarbic respiratory failure likely secondary to pneumonia and resulting COPD exacerbation. He has improved slightly today and is back at his usual 3 L per minute of oxygen. He is symptomatically somewhat improved on Levaquin therapy. 1. Acute hypoxemic on chronic hypercarbic respiratory failure, present on admission, active. -right lower lobe pneumonia with acute on chronic COPD exacerbation, on continuous home oxygen at 3 L/M -P/F ratio is 216 upon arrival to the ER with 3 L nasal cannula. He is compensated CO2 retainer with a pH of 7.37, pCO2 of 56.2 and a bicarb 33. -treatment is per pneumonia and COPD exacerbation below. -chest physiotherapy 3 times daily -Acapella flutter valve 3 times daily 2. Right lower lobe pneumonia, acute, present on admission, active -the patient has had progressive symptoms for 2 weeks failing outpatient therapy with Augmentin and Cipro. -elevated white count at 16.0, procalcitonin is negative at 0.05 and negative respiratory panel. -Chest x-ray reveals right lower lobe pneumonia. -patient has completed his course of Augmentin. -Continue levaquin 750 mg q 24 hours. -respiratory therapy evaluate and treat. -albuterol nebulizer every 2 hours as needed, DuoNeb every 6 hours as needed. -Continue prednisone 20 mg daily x 5 total days (day 2/5 today) -continue home O2 at 3 liters/minute, cool oxygen saturation 88-92% -sputum culture with Gram negative bacilli, will await speciation and sensitivites. 3. Acute exacerbation of COPD -emphysema with increased work of breathing, on chronic home O2 at 3 liters/m inute -albuterol nebulizer every 2 hours as needed, DuoNeb every 6 hours as needed. -patient has been on prednisone 20 mg daily will continue at present therapeutic level -albuterol nebulizer every 2 hours as needed, DuoNeb every 6 hours as needed. -chest physiotherapy 3 times daily -Acapella flutter valve 3 times daily 4. Benign prostatic hypertrophy, chronic, stable -continue home regimen of Flomax daily 5. Non insulin-dependent diabetes mellitus type 2, present on admission. Stable. -Hemoglobin A1C 8.2 -Metformin is held and blood sugars will be checked ACHS and covered with medium range sliding scale insulin -medium carbohydrate diet 6. Coronary artery disease, chronic, stable -patient complains of chest wall pain related to coughing, denies cardiac pain, 12 lead EKG is sinus rhythm without ectopy ST or T-wave changes, unchanged from prior tracing -echocardiogram dated 10/15/2018 reflects an ejection fraction of 70-75% with hyperdynamic LV function and mild right ventricular dilation, no significant valvular disease. -will continue home regimen of furosemide 40 mg daily and aspirin 81 mg daily VTE prophylaxis: Lovenox Quality VTE Deep Vein Thrombosis/Pulmonary Embolism Present on Admission: No
--- NOTE | 2019-08-07 15:26 | PC.NURSE ---
Day Shift Note Walked pt to nurses station and back, SBA with FWW. SpO2 dropped to 94% at its lowest while pt on 4L [place] (per home regimen). Pt breathing very labored throughout this activity requiring one rest period, recovered enough to continue back to room within one minute. Reports that this is about what I do at home. Placed back to 3L [place] while at rest. Call light within reach, using appropriately to make needs known.
--- NOTE | 2019-08-07 15:40 | CM.DANOTE ---
Patient is a 69 year old male who was admitted on 08/06/19 for possible Pneumonia. Pt has [facility] and his PCP is Dr. Olivier. EMR was reviewed. Per MD, pt has respiratory failure and is on oxygen at baseline. Per MD, pt likely will be stable for d/c home this evening or tomorrow pending his respirations and oxygen needs. SW met bedside with pt and explained role and pt confirms that he still lives at home in [place] with his and grandson who provides some assist when needed. Pt has oxygen through [facility] and uses Trilogy at night sometimes. 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 Pt states that he is agreeable with d/c home when medically stable and that his and grandson can provide transport. Pt was last admitted in October 2018 has a hx of SNF at [facility] in Sep 2018 and HH through [facility] at that time. Pt had completed a [facility] during last admit in October and decided to move forward with treatment at that time and currently still wishes to be full code and have treatment. SW called [facility] and [facility] and both do not show the pt as active on their service. SW called [facility] and left ms requesting call back to see if pt is currently open with them. Plan: SW to follow for likely pt d/c home with family when medically stable and return call from [facility] to confirm if pt is open to HH services already and then need for Resume HH orders. RODRIGO Lobo Discharge Planning/Care Management CM Discharge Assessment Start: 08/07/19 15:36 Freq: Status: Active Protocol: Document 08/07/19 15:37 BF (Rec: 08/07/19 15:40 [id number]) Discharge Planning Assessment Assigned Relay Engineer SUSANA Oconnor DPOA/Assigned Designee Name spouse Gina Contact Information [phone] Advance Directives? Yes: POLST Advance Directives on File Yes History Provided By Patient,Medical Record Has Patient been admitted in last 30 No days? Prior Living Arrangements House Household Members spouse,family Type of transporation used prior to Relies on Others admit Independent with ADL's Yes: mostly Is patient alert and oriented? 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 I can sit on it and it saves me some energy. pt is on home 02, 3 L [employer] Patient/Family Preference Home with Home Health Discharge Plan Home with Home Health Transportation Arrangement Likely spouse and grandson can provide transport at d/c Referrals Initiated Home Health Additional Comment Resume Whiteboard Updated in Patient Room with Yes name and ext. # of Relay Engineer Review Status In Process Please Provide Date Initial DC 08/07/19 Assessment Was Performed Next Review Type Continued Stay Review
[2019-08-07 17:44] LABS: Fractionated Inspired Oxygen 0.32
[2019-08-07] MEDS: ATORVASTATIN 20 MG TABLET PO (21:46)
[2019-08-07] MEDS: INSULIN GLARGINE 100 UNIT/ML 3ML PEN 10 UNIT SUBCUT (21:47)
[2019-08-08] VITALS (7 sets, daily range): BP systolic 119–134; BP diastolic 60–64; PULSE 70–74; RESP 18–30; TEMP 36.5–36.8; O2SAT 94–100
--- NOTE | 2019-08-08 05:00 | PC.NURSE ---
Addendum entered by Myrna Fitzgerald R.N. 08/08/19 05:04: Nursing care being passed onto RN Anushka at 0500 Original Note: Pt is AxOx3, VSS, tolerating 3L NC at 99%. Productive cough with thick yellow sputum. Coarse lung sounds. Pressure ulcer to buttocks; pt reluctant to turn. Verbalized understanding of pressure ulcer risks and needing to turn & position q2h. b/l SCDs on throughout night. Tele: NSR; denies chest pain. Fingerstick 167 overnight. No pain. No nausea.
[2019-08-08 05:15] LABS: BUN Creatinine Ratio 37.1 (6-22); Blood Urea Nitrogen 26 mg/dL (9-20); Calcium 9.5 mg/dL (8.4-10.2); Carbon Dioxide 39 mmol/L (22-32); Chloride 98 mmol/L (98-107); Estimated Glomerular Filt Rate > 60.0 mL/min (>60); Glucose 148 mg/dL (80-110); HEMOLYSIS < 15 (0-50); Magnesium 1.9 mg/dL (1.6-2.3); Potassium 4.6 mmol/L (3.4-5.1); Sodium 140 mmol/L (137-145)
[2019-08-08 05:19] LABS: Hematocrit 37.3 % (41-53); Hemoglobin 11.9 g/dL (13.5-17.5); Mean Corpuscular HGB Conc 31.9 % (30-36); Mean Corpuscular Hemoglobin 27.5 PG (26-34); Mean Corpuscular Volume 86.3 fL (80-100); Platelet Count 306 X10^3/uL (150-400); Red Blood Cell Count 4.33 X10^6/uL (4.5-5.9); Red Cell Distribution Width 16.1 % (11.6-14.8)
[2019-08-08 05:23] LABS: Add Manual Diff / Slide Review YES
[2019-08-08 06:34] LABS: Anisocytosis 1+; Neutrophils Absolute Manual 6160 /uL (3000-5900); Total Cells Counted 100
[2019-08-08] MEDS: FLUTICASONE/SALMETEROL 250/50 60 PUFF DISKUS INH (07:11)
[2019-08-08] MEDS: ALBUTEROL/IPRATROPIUM 3 ML AMPUL INH (07:12)
[2019-08-08] MEDS: ENOXAPARIN 40 MG/0.4 ML SYRINGE SUBCUT (08:36)
[2019-08-08] MEDS: CHOLECALCIFEROL (VITAMIN D3) 1,000 UNIT TABLET 1000 UNIT PO (08:36)
[2019-08-08] MEDS: predniSONE 20 MG TABLET PO (08:36)
[2019-08-08] MEDS: LORATADINE 10 MG TABLET PO (08:36)
[2019-08-08] MEDS: guaiFENesin ER 600 MG TAB 1200 MG PO (08:36)
[2019-08-08] MEDS: ASPIRIN EC 81 MG TABLET PO (08:36)
[2019-08-08] MEDS: TAMSULOSIN 0.4 MG CAPSULE PO (08:36)
[2019-08-08] MEDS: INSULIN ASPART 100 UNIT/ML INSULN PEN SUBCUT (08:41)
--- NOTE | 2019-08-08 08:58 | P.DS_ITS ---
History of Present Illness History of Present Illness Date Patient Seen: 08/08/19 Time Patient Seen: 08:58 Chief complaint: thinks he has pneumonia Narrative: As per NISA Kincaid: Mr. Chacorta Yanes is a 69-year-old male with history significant for former smoker with a history emphysema and end-stage COPD, history of b ronchopulmonary aspergillosis, coronary artery disease, diabetes, peripheral vascular disease, hyperlipidemia presents today with progressive dyspnea and increasing chest congestion. The patient reports having shortness of breath for 2 weeks. Was seen by his primary care provider who started him on Augmentin on 07 24 for 14 day course in Cipro started on 07/30 for 10 day course as an outpatient. Patient states he continued to worsen while taking the antibiotic with progressive weakness, poor activity tolerance wheezing, gurgling and persistent coughing. He also reports associated fevers and chills with sore chest secondary to coughing. The patient has been taking prednisone 20 mg daily and has been taking DuoNeb treatments every 2 hours. He reports he uses his trilogy with the oral mouthpiece and has been intolerant of the mask. He has also been continuing to use his CPT. Upon arrival to the emergency department the patient is found have a temperature 99? degrees. Heart rate is 99 with blood pressure 133/70. He has an increased respiratory rate of 28 saturating 93% on 3 liters/minute. Chest x-ray obtained which shows right lower lobe pneumonia. Arterial blood gas reveals a pH of 7.37, pCO2 of 56.2, PO2 of 117, bicarb of 33 with a base excess of 7. He has an elevated white count at 16 with a hemoglobin of 12.1 and hematocrit of 38.4 and platelets of 324. His electrolytes are within normal limits and has a BUN of 21 and creatinine 0.5. Has elevated blood sugar at 256. His procalcitonin is less than 0.05, and respiratory PCR panel is negative. Twelve lead EKG is obtained showing sinus rhythm with PVC. In the ER the patient received serial nebulizer treatments and Decadron 20 mg IV. Patient is admitted to medicine service for right lower lobe pneumonia with COPD exacerbation. Discharge Providers Provider Date of admission: 08/06/19 13:39 Discharge Date: 08/08/19 Primary care physician: Rubens Olivier MD Consults: 08/06/19 16:22 Consult to Respiratory Therapy Evaluate & Treat Comment: Physician Instructions: Evaluate and treat 08/07/19 17:50 Consult to Dietitian, Adult Routine Comment: Reason For Exam: assessed at high risk Discharge provider: Miguel Christie DO Summary Hospital Course Hospital Course: Mr. Chacorta Yanes is a 69-year-old male with history significant for former smoker with a history emphysema and end-stage COPD, history of bronchopulmonary aspergillosis, coronary artery disease, diabetes, peripheral vascular disease, hyperlipidemia who was admitted for acute hypoxemic on chronic hypercarbic respiratory failure likely secondary to pneumonia and resulting COPD exacerbation. He was treated with Levaquin and steroids and he symptomatically improved. Sputum culture grew flavobacterium meningosepticum which was sensitive to Levaquin. He returned to his baseline respiratory status upon discharge requiring 3 L of nasal cannula. He was discharged home with home health. 1. Acute hypoxemic on chronic hypercarbic respiratory failure, present on admission, active. -right lower lobe pneumonia with acute on chronic COPD exacerbation, on continuous home oxygen at 3 L/M -P/F ratio was 216 upon arrival to the ER with 3 L nasal cannula. He is compensated CO2 retainer with a pH of 7.37, pCO2 of 56.2 and a bicarb 33 on admission -treatment was per pneumonia and COPD exacerbation below. 2. Right lower lobe pneumonia, acute, present on admission, active -the patient has had progressive symptoms for 2 weeks failing outpatient therapy with Augmentin and Cipro. -elevated white count at 16.0, procalcitonin is negative at 0.05 and negative respiratory panel on admission -Chest x-ray revealed right lower lobe pneumonia. -patient improved dramatically on Levaquin. This will continue as an outpatient for 5 additional days. -appreciate respiratory therapy assistance during his hospital stay -Continue prednisone 20 mg daily x 5 total days -continue home O2 at 3 liters/minute, oxygen saturation at home should be between 88-92% -sputum culture with flavobacterium meningosepticum, sensitive to Levaquin. 3. Acute exacerbation of COPD -emphysema with increased work of breathing, on chronic home O2 at 3 liters/minute. Patient improved symptomatically with antibiotics and steroids. Etiology is likely secondary to right lower lobe pneumonia as noted above. 4. Benign prostatic hypertrophy, chronic, stable -continue home regimen of Flomax daily 5. Non insulin-dependent diabetes mellitus type 2, present on admission. Stable. -Hemoglobin A1C 8.2 -can continue home regimen 6. Coronary artery disease, chronic, stable -patient complained of chest wall pain related to coughing, denies cardiac pain, 12 lead EKG is sinus rhythm without ectopy ST or T-wave changes, unchanged from prior tracing -echocardiogram dated 10/15/2018 reflects an ejection fraction of 70-75% with hyperdynamic LV function and mild right ventricular dilation, no significant valvular disease. -will continue home regimen of furosemide 40 mg daily and aspirin 81 mg daily Exam Vital Signs (past 8 hours): - 08/08/19 01:00 08/08/19 03:11 08/08/19 05:00 Temperature 98.2 F Pulse Rate 74 Respiratory Rate 18 Blood Pressure 119/64 Pulse Oximetry 98 100 99 08/08/19 07:14 08/08/19 07:26 Temperature 97.7 F Pulse Rate 70 70 Respiratory Rate 30 H 23 Blood Pressure 134/60 Pulse Oximetry 94 99 Oxygen Delivery Method Nasal Cannula Oxygen Flow Rate 3 Narrative Exam Narrative: GENERAL APPEARANCE: well developed, somewhat frail-appearing elderly gentleman in no acute distress. Resting comfortably in hospital bed. HEENT: Normocephalic, PERRLA, conjunctiva clear, sclera is anicteric EOMs intact, no rhinorrhea, mucous membranes are moist and pink. NECK/THYROID: neck supple, no JVD, no carotid bruit, no thyromegaly, trachea midline. LYMPH NODES: no cervical or supraclavicular lymphadenopathy. SKIN: [place], warm and dry, no visible lesions, rashes, ulcerations or petechiae. HEART: regular rate and rhythm, no murmurs, rubs, gallops, brisk capillary refill, trace bilateral pedal edema LUNGS: Air movement improved from previous examinations. no rales or rhonchi are audible, minimal expiratory wheezing dramatically improved. CHEST: Increased AP diameter, symmetrical expansion, no supraclavicular or intercostal retractions. ABDOMEN: Soft, round soft abdomen with large abdominal hernia with abdominal binder support, no tenderness or guarding, no organomegaly, no flank tenderness, active bowel tones. EXTREMITIES: moves all extremities, strength is 5/5 and symmetrical, 1+ dorsalis pedis pulses NEUROLOGIC: non focal, motor strength normal upper and lower extremities, sensation diminished bilateral forefoot with tingling, cranial nerves II-XII grossly intact, hearing grossly normal to speech. PSYCH: alert, oriented, cognitive function intact, good eye contact, stable mood with congruent affect Objective Labs Result Diagrams: 08/08/19 04:40 08/08/19 04:40 Labs: Laboratory Results - last 24 hr 08/06/19 08/08/19 08/08/19 14:30 04:40 04:40 WBC 8.0 D RBC 4.33 L Hgb 11.9 L Hct 37.3 L MCV 86.3 MCH 27.5 MCHC 31.9 RDW 16.1 H Plt Count 306 Neut % (Auto) Not Reportable Lymph % (Auto) Not Reportable [place] % (Auto) Not Reportable Eos % (Auto) Not Reportable Baso % (Auto) Not Reportable Lymph # (Auto) Not Reportable [place] # (Auto) Not Reportable Baso # (Auto) Not Reportable Total Counted 100 Seg Neutrophils % 76.0 H Band Neutrophils % 1.0 L Lymphocytes % (Manual) 15.0 L Monocytes % (Manual) 6.0 Eosinophils % (Manual) 1.0 L Metamyelocytes % 1.0 H Neutrophils # (Manual) 6160 H RBC Morphology See below Anisocytosis 1+ H FiO2 0.32 Sodium 140 Potassium 4.6 Chloride 98 Carbon Dioxide 39 H BUN 26 H Creatinine 0.70 Estimated GFR > 60.0 BUN/Creatinine Ratio 37.1 H Glucose 148 H D Calcium 9.5 Magnesium 1.9 Discharge Plan Discharge Plan Patient Disposition: Home Health Service Discharge comment: You were admitted to the hospital with pneumonia. You improved with a change in your antibiotics. You should complete 5 more days of Levaquin at home. Please follow up with your primary care provider in the next 1-2 weeks to check on your breathing. Discharge orders & Medications Prescriptions: New prednisone 20 mg Tablet 20 mg PO DAILY 3 Days Qty: 3 RF: 0 levofloxacin 750 mg tablet 750 mg PO DAILY 5 Days Qty: 5 RF: 0 Continued cholecalciferol (vitamin D3) [Vitamin D3] 1,000 UNIT tablet 1,000 unit PO DAILY Qty: 0 RF: 0 furosemide 40 mg tablet 40 mg PO DAILY PRN (Reason: SOB) Qty: 30 RF: 5 tamsulosin [Flomax] 0.4 mg capsule 0.4 mg PO DAILY Qty: 90 RF: 3 atorvastatin [Lipitor] 20 mg tablet 20 mg PO BEDTIME Qty: 90 RF: 1 metformin 1,000 mg tablet 1,000 mg PO BID Qty: 180 RF: 1 Spacer: Inhaler Spacer Device 1 ea Inhalation DIRECTED RF: 0 fluticasone propion-salmeterol [Advair Diskus] 250-50 mcg/dose Blister With Device 1 inh INHALATION Q12H RF: 0 aspirin 81 mg Tablet,Delayed Release (Dr/Ec) 81 mg PO DAILY RF: 0 albuterol sulfate [Proventil HFA] 90 mcg/actuation Hfa Aerosol Inhaler 2 puff Inhalation Q4H PRN (Reason: Shortness Of Breath) RF: 0 bisacodyl 5 mg Tablet 5 - 10 mg PO PRN PRN (Reason: MILD TO SEVERE CONSTIPATION) RF: 0 ipratropium-albuterol 0.5 mg-3 mg(2.5 mg base)/3 mL solution for nebulization 3 ml INHALATION Q4H RF: 0 loratadine 10 mg tablet 10 mg PO DAILY RF: 0 lorazepam 1 mg tablet 1 mg PO DAILY PRN (Reason: Anxiety) RF: 0 Discontinued amoxicillin-pot clavulanate 875-125 mg tablet 1 tab PO [id number] RF: 0 prednisone 20 mg tablet See Rx Instructions .ROUTE .COMPLEX RF: 0 Follow up/Referrals: Rubens Olivier MD [Primary Care Provider] - Diet/Activity/Treatments Diet: Diet as Tolerated Activity: As tolerated Oxygen: 3L with home trilogy at night. Visit Report/Discharge Packet Instructions: Prednisone (By mouth), Levofloxacin (By mouth) Visit Report Forms: Patient Portal/API, Stroke Signs & Symptoms Discharge Data Primary Care Provider: Rubens Olivier Discharges patient from system. Discharge Date/Time: 08/08/19 10:30 Quality VTE Deep Vein Thrombosis/Pulmonary Embolism Present on Admission: No
--- NOTE | 2019-08-08 09:47 | PC.NURSE ---
Pt is dressed, IV out, and ready for discharge home with Spouse. Pt already has chronic home O2 and will be on his own concentrator for his drive home. Went over d/c instructions with Pt-discussed d/c meds, time of last dose, reviewed stroke education and follow up. Pt denies further questions and is ready to be taken out to POV via w/c by [employer]PER[employer] PREP with Spouse and all belongings when Spouse arrives. Pt prescriptions electronically sent to [facility].
--- NOTE | 2019-08-08 10:33 | CM.DPC ---
Addendum entered by Khadijah Toussaint LPN 08/08/19 10:38: A check in now shows that pt did leave with his spouse at 0945. Original Note: DCP: continued: case received, EMR reviewed and followed up on the ? of current HH agency: [facility] confirms pt is current. Case discussed then in Team Rounds with Dr. Christie stating that he had just put in the d/c to home order and has verbally gave the Resume HH orders. Order is now in place. Abe Neely will fax clinical info with d/c orders/summary and the resume orders. Have updated [facility] by phone re the d/c to home setting today. Will follow up prn until pt leaves.
== END 2019-08-08 10:30 | disposition home health service (06) | DRG 193 ==
LOC: ED 13:18 → ICU 13:40
PROVIDERS: Internal Medicine; Admitting Provider Internal Medicine; Emergency Provider Emergency Medicine; PCP Student in an Organized Health Care Education/Training Program; Visit Provider Internal Medicine
DX: J18.9 Pneumonia, unspecified organism (principal); J96.01 Acute respiratory failure with hypoxia; J44.1 Chronic obstructive pulmonary disease with (acute) exacerbation; J96.12 Chronic respiratory failure with hypercapnia; J44.0 Chronic obstructive pulmonary disease with (acute) lower respiratory infection; Z99.81 Dependence on supplemental oxygen; I25.10 Atherosclerotic heart disease of native coronary artery without angina pectoris; E11.51 Type 2 diabetes mellitus with diabetic peripheral angiopathy without gangrene; E11.65 Type 2 diabetes mellitus with hyperglycemia; Z79.84 Long term (current) use of oral hypoglycemic drugs; F41.9 Anxiety disorder, unspecified; N40.0 Benign prostatic hyperplasia without lower urinary tract symptoms; Z87.891 Personal history of nicotine dependence
CPT/HCPCS: 36415; 36600; 71045; 80048; 80053; 82805; 82962; 83036; 83735; 84145; 85025; 87070; 87077; 87186; 87205; 87633; 87797; 94640; 94667; 94668; 94762; 96365; 96375; 99284; 99285; J1100; J1650; J1956; J7613